=== PATIENT | female | born 1955 | race Caucasian/White ===

== ENCOUNTER 2019-04-22 19:34 | Inpatient (IN) | payer MEDICARE, MEDICAID ==
[~2019-04-22] VITALS: Ht 162 cm; Wt 196.0 kg
[~2019-04-22 19:34] MED LIST: AC500T; AC500T PO; ACET1TAB38 PO; ASP325T PO; ASP81TEC PO; ASPI-892; ATOR40TA70 PO; ATR20T PO; CA C1TAB78 PO; CAL PO; CLC500CT PO; CLPD75T PO; CPR500T PO; DCS100C; FENO135C PO; GLIP5TAB26 PO; GLUC-113 PO; GLUC-173 PO; GLUCOSAMINE PO; HCT25T PO; INSU100I14 SQ; INSU100I29 SQ; LEVO175T3 PO; LIRA0.6P SQ; LISI5TAB PO; LORA10TA2 PO; LORA10TA7 PO; LVT.15T PO; LVT.1T; MAG PO; MECL-124 PO; MTF500T PO; MTP50T PO; MULT-25; MULT1CAP27 PO; NITR100C3 PO; OMEP20CA12 PO; OMEP20TA2 PO; OMG1KC; OMG1KC PO; PARO10TA21 PO; PARO20TA4 PO; PEG250PW; POLY17PO23 PO; RANI150T66 PO; RNT150T PO; SIME80TA6; SITA100T12 PO; SPIR100T; SPIR100T28 PO; SULF1TAB35 PO; ZIN PO; [UNRECOGNIZED DRUG - OTHER]; [UNRECOGNIZED DRUG - OTHER] PO; [UNRECOGNIZED DRUG - REMARK] PO; tylenol; tylenol PO
[2019-04-22] MEDS ORDERED: NS IV 1000 ML 1,000 ML IV SCH (20:25)
[2019-04-22] MEDS ORDERED: diphenhydrAMINE 25 MG TAB (BENADRYL) PO PRN (20:30)
[2019-04-22] MEDS ORDERED: LACTULOSE SYRUP 10GM/15ML (ENULOSE) 30ML UDC PO PRN (20:30)
[2019-04-22] MEDS ORDERED: POLYETHYLENE GLYCOL 17 GM (MIRALAX) PACK PO PRN (20:30)
[2019-04-22] MEDS ORDERED: MILK OF MAGNESIA 400 MG/5 ML 30 ML UDC PO PRN (20:30)
[2019-04-22] MEDS ORDERED: CALCIUM CARBONATE 500 MG (TUMS) TAB.CHEW PO PRN ×2 (20:30)
[2019-04-22] MEDS ORDERED: LOPERAMIDE 2 MG (IMODIUM) TABLET PO PRN (20:30)
[2019-04-22] MEDS ORDERED: ANTACID SUSP 30 ML UDC (MYLANTA) PO PRN (20:30)
[2019-04-22] MEDS ORDERED: morphine INJ 10 MG/ML 1ML (SYR OR VIAL) IV PRN (20:30)
[2019-04-22] MEDS ORDERED: BISACODYL 10 MG SUPP (DULCOLAX) PR PRN (20:30)
[2019-04-22] MEDS ORDERED: ONDANSETRON 4 MG/2 ML (SDV) Z0FRAN IV PRN (20:30)
[2019-04-22] MEDS ORDERED: ONDANSETRON 4 MG (ZOFRAN) ORAL DISSOLVE TAB PO PRN (20:30)
[2019-04-22] MEDS ORDERED: diphenhydrAMINE 50 MG/ML INJ (BENADRYL) IVP PRN (20:30)
--- NOTE | 2019-04-22 20:35 | History & Physical-Hospitalist ---
History of Present Illness HPI/Chief Complaint CC: Respiratory distress HPI: This is a 64yoWF clinic patient of Dr Styles and Dr Garcia who has h/o CAD s/p 2 stents and morbid obesity who wears O2 at night who presented to the ICU at [facility] from [facility] due to cough and dyspnea for the past few days with low grade subjective fever. CXR was negative at [facility] and wbc was 12k so I was called and I requested further w/u and I assessed her to need specialty care of Pulmo and Cards so arrangements were made to move to [facility] for higher level of care. Influenza was negative and Lactic acid was normal but d-dimer was elevated at 645 and ABG revealed hypoxemia at 67 and hypercapnia at 56 with pH 7.39 and BNP negative. Lovenox 120mg SQ was given one dose in [facility] ER. Samantha Abraham and Robert were both notified. Source: patient, RN/MD, old records Exam Limitations: no limitations Date Seen 04/22/19 Time Seen by a Provider: 20:30 Attending Physician Janny Bliss DO PCP Jd Styles MD Referring Physician Date of Admission Home Medications & Allergies Home Medications Reviewed patient Home Medication Reconciliation performed by pharmacy medication reconciliations psychiatric technician and/or nursing. Patients Allergies have been reviewed. Allergies Allergies Coded Allergies No Known Drug Allergies (Verified Allergy, Unknown, 05/07/09) Past Dvbqdsh-Qiqhhb-Opcmks Hx Past Med/Social Hx: Reviewed Nursing Past Med/Soc Hx, Reviewed and Corrections made Patient Social History Marrital Status: Employed/Student: retired Alcohol Use: Denies Use Smoking Status: Former Smoker Former Smoker, Quit: Nov 28, 2007 Type Used: Cigarettes Recent Foreign Travel: No Contact w/other who traveled: No Immunizations Up To Date Date of Pneumonia Vaccine: Dec 03, 2014 Date of Influenza Vaccine: Nov 26, 2010 Past Medical History Surgeries: Coronary Stent Respiratory: COPD, Sleep Apnea Cardiac: Coronary Artery Disease, High Cholesterol, Hypertension Neurological: Neuropathy Reproductive: No Gastrointestinal: Gastroesophageal Reflux Musculoskeletal: Arthritis Endocrine: Diabetes, Insulin dep, Hypothyroidsim Review of Systems Constitutional: dizziness, malaise, weakness Respiratory: dyspnea on exertion, short of breath, wheezing Physical Exam Physical Exam Vital Signs Capillary Refill : Height, Weight, BMI Height: 5'5.00" Weight: 380lbs. 0.0oz. [id number]; 63.2 BMI Method: General Appearance: Anxious, Chronically ill, Mild Distress, Obese, Other (morbid obesity) Eyes: Right Eye Normal Inspection, Right Eye PERRL HEENT: PERRL/EOMI, Normal ENT Inspection, Pharynx Normal, Moist Mucous Membranes Neck: Full Range of Motion, Normal Inspection, Non Tender Respiratory: Chest Non Tender, Accessory Muscle Use, Crackles, Decreased Breath Sounds, Rales, Respiratory Distress, Wheezing Cardiovascular: No Edema, No Gallop, No JVD, No Murmur, Normal Peripheral Pulses, Tachycardia Gastrointestinal: Normal Bowel Sounds, No Organomegaly, No Pulsatile Mass, Non Tender, Soft Back: Normal Inspection, No CVA Tenderness, No Vertebral Tenderness Extremity: Normal Capillary Refill, Normal Inspection, Normal Range of Motion, Non Tender, No Calf Tenderness, No Pedal Edema Neurologic/Psychiatric: Alert, Oriented x3, No Motor/Sensory Deficits, Normal 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 Assessment/Plan Admission Diagnosis Assessment: Respiratory distress Elevated d-dimer with suspicion for PE placed on Lovenox therapeutic dose Hypoxemia Hypercapnia Obesity hypoventilation syndrome CAD stents x 2 Dr Garcia HTN HLP DM insulin dependent Hypothyroidism GERD Plan: biPAP CT angiogram if not too obese for the table Lovenox 120mg SQ Q12 hours ABG Panculture O2 Nebs Mat protocol SSI A Cardiology and Pulmonology appreciated Admission Status: Inpatient Order (span 2 midnights) Reason for Inpatient Admission: Resp failure Diagnosis/Problems Diagnosis/Problems (1) Respiratory insufficiency (2) Obesity hypoventilation syndrome (3) Elevated d-dimer (4) Hypoxemia (5) Hypercapnia (6) Obesities, morbid (7) GERD (gastroesophageal reflux disease) Clinical Quality Measures DVT/VTE Risk/Contraindication: Contraindications-Mechi: Other *list below* Other: possible DVT JANNY BLISS DO Apr 22, 2019 20:35
[2019-04-22 21:40] VITALS: BP 151/75
[2019-04-22 22:01] LABS: ABG BASE EXCESS 7.9 MMOL/L (-2.5-2.5); ABG OXYGEN SATURATION 95 % (94-100); ABG PCO2 47 MMHG (35-45); ABG PH 7.45 (7.37-7.43); ABG PO2 74 MMHG (79-93); ABG TCO2 33.8 MMOL/L (21.0-31.0)
[2019-04-22 22:02] LABS: ALLENS TEST YES-POS; INSPIRED O2 5L; PATIENT TEMP 36.3; VENTILATOR NO
[2019-04-22 22:12] LABS: BASOPHILS % (AUTO) 0 % (0-10); EOSINOPHILS # (AUTO) 0.2 10^3/uL (0.0-0.3); EOSINOPHILS % (AUTO) 2 % (0-10); HEMATOCRIT 41 % (35-52); HEMOGLOBIN 12.5 G/DL (11.5-16.0); LYMPHOCYTES # (AUTO) 1.7 X 10^3 (1.0-4.0); LYMPHOCYTES % (AUTO) 15 % (12-44); MEAN CORPUSCULAR HEMOGLOBIN 29 PG (25-34); MEAN CORPUSCULAR HGB CONC 30 G/DL (32-36); MEAN CORPUSCULAR VOLUME 97 FL (80-99); MEAN PLATELET VOLUME 9.8 FL (7.4-10.4); MONOCYTES # (AUTO) 0.9 X 10^3 (0.0-1.0); MONOCYTES % (AUTO) 8 % (0-12); NEUTROPHILS # (AUTO) 8.8 X 10^3 (1.8-7.8); NEUTROPHILS % (AUTO) 76 % (42-75); PLATELET COUNT 363 10^3/uL (130-400); RED CELL DISTRIBUTION WIDTH 16.9 % (10.0-14.5); WHITE BLOOD COUNT 11.6 10^3/uL (4.3-11.0)
[2019-04-22] MEDS: DOCUSATE SODIUM 100 MG (COLACE) CAP PO SCH (22:12)
[2019-04-22] MEDS: SENNOSIDES 8.6 MG (SENOKOT) TAB PO SCH (22:12)
[2019-04-22 22:32] LABS: ALANINE AMINOTRANSFERASE 29 U/L (0-55); ALBUMIN 3.7 GM/DL (3.2-4.5); ALKALINE PHOSPHATASE 63 U/L (40-136); BILIRUBIN,TOTAL 0.5 MG/DL (0.1-1.0); BUN/CREATININE RATIO 21; CALCIUM 9.8 MG/DL (8.5-10.1); CARBON DIOXIDE 28 MMOL/L (21-32); CHLORIDE 100 MMOL/L (98-107); CREATININE SERUM 1.14 MG/DL (0.60-1.30); GFR ESTIMATED 48; GLUCOSE 82 MG/DL (70-105); POTASSIUM 4.9 MMOL/L (3.6-5.0); SODIUM 140 MMOL/L (135-145); TOTAL PROTEIN 7.5 GM/DL (6.4-8.2)
[2019-04-22] MEDS ORDERED: cefTRIAXone 1,000 MG IV (ROCEPHIN) VIAL ONE (22:55)
[2019-04-22] MEDS ORDERED: WATER (STERILE) FOR INJECTION 10 ML ONE (22:55)
[2019-04-22 23:06] VITALS: BP 158/74
[2019-04-22] MEDS: ENOXAPARIN 60 MG/0.6 ML (LOVENOX) SYR SC SCH (23:08)
[2019-04-22] MEDS: inSUlin ASPART (NovoLOG) 1 UNIT/0.01 ML (CHARGE PER UNIT) SC SCH (23:08)
[2019-04-22 23:18] VITALS: BP 158/74
[2019-04-22] MEDS: cefTRIAXone FOR IV USE 1,000 MG in WATER (STERILE) FOR INJECTION 10 ML IV SCH (23:21)
[2019-04-22] MEDS: methylPREDNISolone 40 MG/ML (Solu-MEDROL) VIAL IV SCH (23:22)
[2019-04-22 23:30] VITALS: BP 133/58
[2019-04-22] MEDS ORDERED: RT-ALBUTEROL/IPRATROPIUM 3 ML (DUONEB) VIAL INH PRN (23:30)
[2019-04-22 23:35] LABS: BILIRUBIN,URINE NEGATIVE (NEGATIVE); CLARITY,URINE CLEAR; COLOR,URINE YELLOW; GLUCOSE, URINE (UA) NEGATIVE (NEGATIVE); KETONES,URINE NEGATIVE (NEGATIVE); LEUKOCYTE ESTERASE ,URINE TRACE (NEGATIVE); NITRITE,URINE NEGATIVE (NEGATIVE); PROTEIN,URINE NEGATIVE (NEGATIVE)
[2019-04-22 23:51] LABS: BACTERIA,URINE FEW /HPF; SQUAMOUS EPITHELIAL CELL,UR RARE /HPF; WBC,URINE 0-2 /HPF
[2019-04-23] VITALS (26 sets, daily range): BP systolic 102–174; BP diastolic 56–122
[2019-04-23] MEDS: RT-ALBUTEROL/IPRATROPIUM 3 ML (DUONEB) VIAL INH SCH ×6 (02:07→21:12)
[2019-04-23 04:44] LABS: BASOPHILS % (AUTO) 0 % (0-10); EOSINOPHILS % (AUTO) 0 % (0-10); HEMATOCRIT 41 % (35-52); LYMPHOCYTES # (AUTO) 0.7 X 10^3 (1.0-4.0); LYMPHOCYTES % (AUTO) 6 % (12-44); MEAN CORPUSCULAR HEMOGLOBIN 28 PG (25-34); MEAN CORPUSCULAR HGB CONC 29 G/DL (32-36); MEAN CORPUSCULAR VOLUME 97 FL (80-99); MEAN PLATELET VOLUME 9.7 FL (7.4-10.4); MONOCYTES # (AUTO) 0.2 X 10^3 (0.0-1.0); MONOCYTES % (AUTO) 2 % (0-12); NEUTROPHILS # (AUTO) 10.3 X 10^3 (1.8-7.8); NEUTROPHILS % (AUTO) 92 % (42-75); PLATELET COUNT 352 10^3/uL (130-400); RED CELL DISTRIBUTION WIDTH 16.8 % (10.0-14.5); WHITE BLOOD COUNT 11.2 10^3/uL (4.3-11.0)
[2019-04-23 04:53] LABS: ABG BASE EXCESS 6.6 MMOL/L (-2.5-2.5); ABG OXYGEN SATURATION 99 % (94-100); ABG PCO2 58 MMHG (35-45); ABG PH 7.36 (7.37-7.43); ABG PO2 132 MMHG (79-93); ABG TCO2 33.9 MMOL/L (21.0-31.0)
[2019-04-23 04:55] LABS: ALLENS TEST YES-POS; INSPIRED O2 50%; PATIENT TEMP 36.4; VENTILATOR NO
[2019-04-23] MEDS: ACETAMINOPHEN 325 MG TABLET PO PRN ×2 (05:01→12:00)
[2019-04-23 05:03] LABS: ALBUMIN 3.7 GM/DL (3.2-4.5); BILIRUBIN,TOTAL 0.4 MG/DL (0.1-1.0); CALCIUM 9.3 MG/DL (8.5-10.1); CREATININE SERUM 1.02 MG/DL (0.60-1.30); PHOSPHORUS 3.3 MG/DL (2.3-4.7); POTASSIUM 5.3 MMOL/L (3.6-5.0); TOTAL PROTEIN 7.2 GM/DL (6.4-8.2)
[2019-04-23] MEDS: KCL 20 MEQ TAB (K-DUR) PO SCH (05:04)
[2019-04-23] MEDS: MAGNESIUM 1 GM/100 ML IVPB 100 ML IV SCH (05:04)
[2019-04-23] MEDS: POTASSIUM CL 10MEQ/50ML IVPB 50 ML IV SCH (05:04)
[2019-04-23] MEDS: inSUlin ASPART (NovoLOG) 1 UNIT/0.01 ML (CHARGE PER UNIT) SC SCH ×4 (05:05→20:53)
--- NOTE | 2019-04-23 05:41 | Pulmonary Consultation ---
History of Present Illness History of Present Illness Date Seen by Provider: Apr 23, 2019 Time Seen by Provider: 05:36 Date of Admission History of Present Illness 64yo With hx of CAD, morbid obesity, oxygen dependent COPD, presented from [facility] [place] direct admit to ICU secondary to worsening SOB, subjective fevers, and cough over the last 3-4 days . PT was found to have sepsis and was admitted to ICU with abx and IVF. No prior episodes like this in past. I am consulted for pulmonary/ICU management. Allergies and Home Medications Allergies Coded Allergies: No Known Drug Allergies (Verified Allergy, Unknown, 05/07/09) Home Medications Acetaminophen 500 Mg Tablet, 1,000 MG PO DAILY PRN for PAIN, (Reported) TAKES 2 (500MG) TABLET Aspirin 81 Mg Tabec, 81 MG PO DAILY@1999, (Reported) Atorvastatin Calcium 40 Mg Tablet, 40 MG PO 1999, (Reported) Calcium Carbonate 500 Mg Tab.chew, 500-1,000 MG PO DAILY PRN for INDIGESTION, (Reported) TAKES 1-2 (500MG) CHEW TAB Clopidogrel 75 Mg Tablet, 75 MG PO DAILY, (Reported) Fenofibrate 135 Mg Capsule.dr, 135 MG PO DAILY, (Reported) Glipizide 5 Mg Tab.er.24, 10 MG PO DAILY W/BREAKFAST, (Reported) TAKE 2 (5MG) TABLETS Insulin Aspart 300 Units/3 Ml Solution, 18 UNITS SQ AC, (Reported) Insulin Detemir 100 Unit/1 Ml Insuln.pen, 16 UNITS SQ HS, (Reported) Levothyroxine Sodium 175 Mcg Tablet, 175 MCG PO DAILY, (Reported) Liraglutide 0.6 Mg/0.1 Ml Pen.injctr, 1.2 MG SQ HS, (Reported) Lisinopril 5 Mg Tablet, 5 MG PO DAILY@1800, (Reported) Metoprolol Tartrate 50 Mg Tab, 50 MG PO BID, (Reported) Multivitamins 1 Each Capsule, 1 TAB PO DAILY@1500, (Reported) Lyle 3 Polyunsat Fatty Acids 1,000 Mg Cap, 1,000 MG PO BID, (Reported) Paroxetine Hcl 20 Mg Tablet, 20 MG PO DAILY, (Reported) Polyethylene Glycol 17 Gm Pack, 17 GM PO DAILY PRN for CONSTIPATION, (Reported) Ranitidine Hcl 150 Mg Tablet, 150 MG PO BID, (Reported) Sitagliptin Phosphate 100 Mg Tablet, 100 MG PO DAILY, (Reported) [Markus/Mag/Zin] , 1 TAB PO DAILY@1500, (Reported) [Glucosamine] , 2,000 MG PO DAILY@1500, (Reported) Past Iubmbbw-Xqvgki-Djnkhp Hx Past Med/Social Hx: Reviewed Nursing Past Med/Soc Hx, Reviewed and Corrections made Patient Social History Alcohol Use: Denies Use Smoking Status: Former Smoker Type Used: Cigarettes Former Smoker, Quit: Nov 28, 2007 Recent Foreign Travel: No Contact w/Someone Who Travel: No Immunizations Up To Date Date of Pneumonia Vaccine: Jan 26, 2018 Date of Influenza Vaccine: Nov 26, 2010 Past Medical History Coronary Stent Sleep Apnea Coronary Artery Disease, High Cholesterol, Hypertension Neuropathy Reproductive Disorders: No Gastroesophageal Reflux Arthritis Diabetes, Insulin dep, Hypothyroidsim Review of Systems Time Seen by Provider: 07:14 Constitutional: Fever, Chills, Sweats, Weakness, Malaise, Other Eyes: No: Pain, Vision change, Conjunctivae inflammation, Eyelid inflammation, Other, Redness ENT: Nose congestion; No: Ear pain, Ear discharge, Nose pain, Nose discharge, Mouth pain, Mouth swelling, Throat pain, Throat swelling, Other Respiratory: Cough, Shortness of breath, SOB with excertion Sepsis Event Evaluation Height, Weight, BMI Height: 5'5.00" Weight: 380lbs. 0.0oz. [id number]; 77.57 BMI Method: Exam Exam Vital Signs Date Time Temp Pulse Resp B/P (MAP) Pulse Ox O2 Delivery O2 Flow Rate FiO2 04/23/19 05:00 67 161/76 (104) 94 NIV Bilevel 50.00 04/23/19 04:00 36.4 04/23/19 04:00 96 Vapotherm 16.00 40 04/23/19 04:00 66 164/77 (106) 98 NIV Bilevel 50.00 04/23/19 03:00 58 146/73 (97) 96 NIV Bilevel 50.00 04/23/19 02:08 74 17 94 50.00 04/23/19 02:00 52 23 146/70 (95) 93 NIV Bilevel 50.00 04/23/19 01:52 61 04/23/19 01:00 62 23 127/63 (84) 96 NIV Bilevel 50.00 04/23/19 00:55 NIV Bilevel 50.00 04/23/19 00:37 61 20 96 50.00 04/23/19 00:00 55 21 138/66 (90) 97 Vapotherm 16.00 40.00 04/23/19 00:00 96 Vapotherm 16.00 40 04/22/19 23:30 60 23 133/58 (83) 95 Vapotherm 16.00 40.00 04/22/19 23:18 36.3 60 99 45 04/22/19 23:06 60 20 158/74 (102) 99 Vapotherm 16.00 40.00 04/22/19 22:37 Nasal Cannula 6.00 04/22/19 22:27 61 04/22/19 22:03 Nasal Cannula 6.00 04/22/19 21:45 36.3 04/22/19 21:40 61 18 151/75 (100) 94 Nasal Cannula I & O 04/23/19 07:00 Intake Total 50 ml Output Total 1275 ml Balance -1225 ml Height & Weight Height: 5'5.00" Weight: 380lbs. 0.0oz. 172.851427jb; 77.57 BMI Method: General Appearance: Anxious, Chronically ill, Mild Distress, Obese, Other (morbid obesity) HEENT: PERRL/EOMI, Normal ENT Inspection, Pharynx Normal, Moist Mucous Membranes Neck: Full Range of Motion, Normal Inspection, Non Tender Respiratory: Chest Non Tender, Accessory Muscle Use, Crackles, Decreased Breath Sounds, Rales, Respiratory Distress, Wheezing Cardiovascular: No Edema, No Gallop, No JVD, No Murmur, Normal Peripheral Pulses, Tachycardia Capillary Refill: Less Than 3 Seconds Extremity: Normal Capillary Refill, Normal Inspection, Normal Range of Motion, Non Tender, No Calf Tenderness, No Pedal Edema Neurologic/Psychiatric: Alert, Oriented x3, No Motor/Sensory Deficits, 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 -Check Echo Morbid obesity with OHS -Pt will benefit from home vent to mask -C02 on chem is 53 Hyperkalemia -Give 80mg of lasix x 1 COPD -Duonebs -Solumedrol -Oxygen CAD -Cardiology following -Hx of stent placement IDDM RUBENS TRUJILLO DO Apr 23, 2019 05:41
[2019-04-23] MEDS ORDERED: FUROSEMIDE 40 MG/4 ML INJ (LASIX) IVP ONE (05:45)
[2019-04-23] MEDS: methylPREDNISolone 40 MG/ML (Solu-MEDROL) VIAL IV SCH ×3 (06:37→17:12)
[2019-04-23] MEDS ORDERED: FLU QUADRIvalent (5+ YOA) 2019-2020 (AFLURIA) 0.5 ML IM ONE (06:45)
[2019-04-23] MEDS ORDERED: hydrALAZINE (APESOLINE) 20 MG/ML VIAL IV PRN (07:30)
--- NOTE | 2019-04-23 07:46 | Diagnostic Imaging Report ---
INDICATION: Tachycardia. Comparison is made to prior examination of 04/22/19. FINDINGS: There is cardiomegaly. There is some venous congestion. There is no pleural effusion, pneumothorax or pneumonia. Mediastinum is unremarkable. IMPRESSION: Cardiomegaly and mild central pulmonary venous congestion. Dictated by: Dictated on workstation # [id number]
[2019-04-23] MEDS: NS IV 1000 ML 1,000 ML IV SCH ×2 (08:15→20:53)
[2019-04-23] MEDS: ENOXAPARIN 60 MG/0.6 ML (LOVENOX) SYR SC SCH (08:17)
[2019-04-23] MEDS: DOCUSATE SODIUM 100 MG (COLACE) CAP PO SCH ×2 (08:18→20:53)
[2019-04-23] MEDS: SENNOSIDES 8.6 MG (SENOKOT) TAB PO SCH ×2 (08:18→20:53)
--- NOTE | 2019-04-23 08:29 | Diagnostic Imaging Report ---
INDICATION: Dyspnea. Comparison made with prior examination 12/03/2015. FINDINGS: There is cardiomegaly. There is some venous congestion. There is no pleural effusion or pneumothorax. Mediastinum is unremarkable. IMPRESSION: Cardiomegaly and mild central pulmonary venous congestion. Dictated by: Dictated on workstation # [id number]
[2019-04-23] MEDS ORDERED: ENOXAPARIN 300 MG/3 ML (LOVENOX) MULTI-DOSE VIAL SQ SCH ×2 (08:30→20:00)
--- NOTE | 2019-04-23 08:49 | Consultation-Cardiology ---
HPI-Cardiology Cardiology Consultation Date of Consultation 04/23/19 Date of Admission Time Seen by Provider: 08:16 Indication: Shortness of breath HPI This is a 64 y/o F w/ PMH of HTN, insulin dependent DMII, hyperlipidemia, CAD w/ 2 stents, morbid obesity, and O2 dependent COPD who presented from [facility] for direct admit to [facility] ICU for worsening SOB x1 Month, and subjective low grade fever and cough for the past few days. She states in the past few weeks she has had trouble breathing when lying flat. Denies chest pain, palpitations, dizziness, tenderness to LE, increased swelling to extremities or any other sx at this time. Her labs showed hypercapnia, elevated BPN, D-dimer, and leukocytosis. Home Medications & Allergies Allergies: Coded Allergies: canagliflozin (Verified Allergy, Unknown, 04/23/19) Home Medication List Reviewed: Yes PLM-Ivsywh-Ibqiwt Hx Patient Social History Marital Status: Employed/Student: retired Alcohol Use: Denies Use Smoking Status: Former Smoker Former smoker/When Quit: August 08, 2007 Type Used: Cigarettes Recent Foreign Travel: No Immunizations Up To Date Date of Pneumonia Vaccine: Jan 26, 2018 Date of Influenza Vaccine: Nov 26, 2010 Past Medical History Discussed below Family Medical History Family Medical Hx Noncontributory Review of Systems-General Review of Systems Constitutional: No chills; fever, weakness EENTM: see HPI, no symptoms reported Respiratory: see HPI, cough, dyspnea on exertion, orthopnea, short of breath Cardiovascular: see HPI; No chest pain; edema, Hx of Intervention; No palpitations Gastrointestinal: no symptoms reported, see HPI; No abdominal pain, No constipation, No diarrhea Genitourinary: no symptoms reported, see HPI; No decreased output, No discharge, No dysuria Musculoskeletal: see HPI, back pain, joint pain Skin: see HPI Psychiatric/Neurological: See HPI Reviewed Test Results Reviewed Test Results Lab Laboratory Tests 04/22/19 22:02 04/23/19 04:25 Physical Exam Physical Exam Vital Signs Vital Signs - First Documented 04/22/19 04/22/19 04/22/19 04/22/19 21:40 21:45 22:03 23:18 Temp 36.3 Pulse 61 Resp 18 B/P (MAP) 151/75 (100) Pulse Ox 94 O2 Delivery Nasal Cannula O2 Flow Rate 6.00 FiO2 45 Capillary Refill : Less Than 3 Seconds Height, Weight, BMI Height: 5'5.00" Weight: 380lbs. 0.0oz. 172.948988op; 77.57 BMI Method: General Appearance: No Apparent Distress, Chronically ill, Other (morbid obesity) Eyes: Bilateral Eye Normal Inspection, Bilateral Eye PERRL, Bilateral Eye EOMI HEENT: PERRL/EOMI, Normal ENT Inspection, Pharynx Normal, Moist Mucous Membranes Neck: Full Range of Motion, Normal Inspection, Non Tender Respiratory: Chest Non Tender, Crackles, Decreased Breath Sounds Cardiovascular: Regular Rate, Rhythm, No Gallop, No JVD, Normal Peripheral Pulses Gastrointestinal: Normal Bowel Sounds, No Organomegaly, No Pulsatile Mass, Non Tender, Soft Back: Normal Inspection, No CVA Tenderness, No Vertebral Tenderness Extremity: Non Tender, No Calf Tenderness, Pedal Edema, Other (1+ bilateral pedal edema; scaly, yellow rash to bilateral feet) Neurologic/Psychiatric: Alert, Oriented x3, No Motor/Sensory Deficits, Normal Mood/Affect Skin: Normal Color, Warm/Dry Lymphatic: No Adenopathy A/P-Cardiology Assessment/Plan Acute respiratory failure, improving, on Vapotherm Elevated BNP, echocardiogram showed normal LV size and function with ejection fraction 50-55 percent. Pulmonary hypertension with PA pressure 45-50 mmHg. -Hypercapnia, hypoxemia -On Noninvasive ventilation -On O2 NC Elevated D-dimer -R/O PE -Receiving Lovenox inj -Bilateral LE Doppler ordered -Unable to CT scan pt 2/2 body habitus -Continue to monitor, Managed by Primary Care team and Dr. Abraham COPD & OHS -Receiving Duonebs, Solumedrol, and Vapotherm Hyperkalemia, started on Lasix -Continue to monitor, Managed by Primary Care team and Dr. Abraham CAD w/ 2 stents -Cardiac Cath in 2016 showed Mild to moderate CAD, nonobstructive, disease with patent stents in the right coronary artery & Mildly elevated LVEDP -Echo in 2016 showed ~EF 50% and Pulmonary Arterial Pressure of 30 mm Hg, Awaiting updated Echo results HTN, poorly controlled, currently on Solu-Medrol, restarted Lopressor and lisinopril, continue to monitor Insulin Dependent DMII -Managed by Primary Care team Hyperlipidemia Hypothyroidism GERD Poor hygiene Clinical Quality Measures DVT/VTE Risk/Contraindication: Risk Factor Score Per Nursin RFS Level Per Nursing on Admit: 4+=Very High Contraindications-Mechi: Other *list below* Other: possible DVT Supervisory-Addendum Brief Verification & Attestation Participated in pt care: history, MDM, physical Personally performed: exam, history, MDM, supervision of care Care discussed with: Medical Student Procedures: n/a Results interpretation: Verified all documentation Verification and Attestation of Medical Student E/M Service A medical student performed and documented this service in my presence. I reviewed and verified all information documented by the medical student and made modifications to such information, when appropriate. I personally performed the physical exam and medical decision making. I made few modifications to the note using Italic font Belle Garcia, Apr 23, 2019,10:03 [facility] Apr 23, 2019 08:49 BELLE GARCIA MD Apr 23, 2019 10:05
--- NOTE | 2019-04-23 08:52 | Progress Note - Hospitalist ---
QUYNH COSTA,MED STUDENT 04/23/19 0852: Subjective HPI/CC On Admission Date Seen by Provider: Apr 23, 2019 Time Seen by Provider: 08:14 CC: Respiratory distress HPI: This is a 64yoWF clinic patient of Dr Styles and Dr Garcia who has h/o CAD s/p 2 stents and morbid obesity who wears O2 at night who presented to the ICU at [facility] from [facility] due to cough and dyspnea for the past few days with low grade subjective fever. CXR was negative at [facility] and wbc was 12k so I was called and I requested further w/u and I assessed her to need specialty care of Pulmo and Cards so arrangements were made to move to [facility] for higher level of care. Influenza was negative and Lactic acid was normal but d-dimer was elevated at 6 45 and ABG revealed hypoxemia at 67 and hypercapnia at 56 with pH 7.39 and BNP negative. Lovenox 120mg SQ was given one dose in [facility] ER. Samantha Abraham and Robert were both notified. Subjective/Events-last exam Pt states SOB and cough have improved on vapotherm Cough still non-productive Complains of chronic pain in her leg she states is related to how she sits. pain is stable Struggles to sit forward for resp. exam Out of breath during entirety of interview Wears oxygen at home at night, has never had CPAP before Focused Exam Lactate Level 04/22/19 22:02: Lactic Acid Level 0.84 Objective Exam Vital Signs Vital Signs Date Time Temp Pulse Resp B/P (MAP) Pulse Ox O2 Delivery O2 Flow Rate FiO2 04/23/19 10:22 92 Vapotherm 20.00 50 04/23/19 09:00 67 157/90 (112) 04/23/19 08:00 36.8 04/23/19 02:08 17 Capillary Refill : Less Than 3 Seconds General Appearance: No Apparent Distress, Chronically ill, Obese HEENT: Pharynx Normal, Moist Mucous Membranes Neck: Non Tender, Supple, Other (hursutism on chin ) Respiratory: Chest Non Tender, No Respiratory Distress, Accessory Muscle Use, Crackles, Decreased Breath Sounds Cardiovascular: Regular Rate, Rhythm, No Gallop, No Murmur, Normal Peripheral Pulses Back: No CVA Tenderness, No Vertebral Tenderness, Other (buffalo hump, probably related to body habitus ) Extremity: No Calf Tenderness, Inflammation, Pedal Edema (+3 pitting on the right, +4 pitting on the right ), Swelling (L medial malleolus ), Other (scaling over feet b/l ) Neurologic/Psychiatric: Alert, Oriented x3 Skin: Normal Color, Warm/Dry Results/Procedures Lab Laboratory Tests 04/22/19 22:02 04/23/19 04:25 Patient resulted labs reviewed. Assessment/Plan Assessment and Plan Assess & Plan/Chief Complaint Assessment Respiratory insufficiency Respiratory acidosis Pulmonary hypertension Hyperkalemia Elevated BNP Morbid obesity Plan Consulted pulm, cardio Pt cannot fit into CT. Tx empirically with lovenox. Will eval with b/l dopplers Continue breathing treatments, nuonebs, solumedrol Pt will require CPAP machine at home Cardio following echo Clinical Quality Measures DVT/VTE Risk/Contraindication: Risk Factor Score Per Nursin RFS Level Per Nursing on Admit: 4+=Very High Contraindications-Mechi: Other *list below* Other: possible DVT JANNY BLISS DO 04/23/192053: Subjective Subjective/Events-last exam Pt still on Vapotherm O2 sat 90%. Venous doppler will be obtained on the lower extremities since D-dimer is 1.56, Pt maintained on Lovenox therapeutic dose first given at the [facility] ER before transfer. Pt and OT will be ordered and Pt may need rehab. Review of Systems Pulmonary: Dyspnea, Cough Objective Exam General Appearance: Anxious, Chronically ill, Mild Distress, Obese Respiratory: Accessory Muscle Use, Crackles, Decreased Breath Sounds, Wheezing Assessment/Plan Assessment and Plan Assess & Plan/Chief Complaint Assessment: Respiratory distress Elevated d-dimer with suspicion for PE placed on Lovenox therapeutic dose Hypoxemia Hypercapnia Obesity hypoventilation syndrome CAD stents x 2 Dr Garcia HTN HLP DM insulin dependent Hypothyroidism GERD Plan: biPAP CT angiogram but too obese for table Lovenox 120mg SQ Q12 hours ABG Panculture O2 Nebs Mat protocol SSI A Cardiology and Pulmonology appreciated Diagnosis/Problems Diagnosis/Problems (1) Respiratory insufficiency (2) Hypoxemia (3) Hypercapnia (4) GERD (gastroesophageal reflux disease) (5) Obesities, morbid (6) Obesity hypoventilation syndrome (7) Elevated d-dimer Supervisory-Addendum Brief Verification & Attestation Participated in pt care: history, MDM, physical Personally performed: exam, history, MDM, supervision of care Care discussed with: Medical Student Procedures: n/a Results interpretation: Verified all documentation Verification and Attestation of Medical Student E/M Service A medical student performed and documented this service in my presence. I reviewed and verified all information documented by the medical student and made modifications to such information, when appropriate. I personally performed the physical exam and medical decision making. Janny Bliss, Apr 23, 2019,20:54 QUYNH COSTA,MED STUDENT Apr 23, 2019 08:52 JANNY BLISS DO Apr 23, 2019 20:54
[2019-04-23] MEDS ORDERED: PANTOPRAZOLE 40 MG (PROTONIX) VIAL IV SCH (09:00)
[2019-04-23] MEDS ORDERED: lisINopril 5 MG (PRINIVIL) TABLET PO SCH (10:00)
--- NOTE | 2019-04-23 10:00 | Physical Therapy Evaluation ---
PT Evaluation-General Medical Diagnosis Admission Date Apr 22, 2019 at 20:34 Medical Diagnosis: Respiratory Insuffiencry Onset Date: Apr 22, 2019 Therapy Diagnosis Therapy Diagnosis: Debility Height/Weight Height (Feet): 5 Height (Inches): 5.00 Weight (Pounds): 380 Weight (Ounces): 0.0 Precautions Precautions/Isolations: Fall Prevention, Standard Precautions Referral Physician: Amita Reason for Referral: Evaluation/Treatment Medical History Pertinent Medical History: Arthritis, CAD, COPD, DM, GERD, HTN, Hypothroidism, Neuropathy Additional Medical History High cholesterol, sleep apnea. Current History [place] [facility] [place]ed History: Yes Social History Home: Apartment Current Living Status: Spouse Entry Into Home: Level Entry PT Steps Into Home: 0 PT Steps Inside Home: 0 Prior Prior Level of Function SCALE: Activities may be completed with or without assistive devices. 7-Ujkaredqyx-ckmkzxe completes the activity by him/herself with no assistance from a helper. 5-Set-up or Clean-up Assistance-helper sets up or cleans up; patient completes activity. [place] assists only prior to or following the activity. 4-Supervision or Touching Assistance-helper provides verbal cues and/or touching/steadying and/or contact guard assistance as patient completes activity. Assistance may be provided throughout the activity or intermittently. 3-Partial/Moderate Assistance-helper does LESS THAN HALF the effort. [place] lifts, holds or supports trunk or limbs, but provides less than half the effort. 2-Substantial/Maximal Assistance-helper does MORE THAN HALF the effort. [place] lifts or holds trunk or limbs and provides more than half the effort. 2-Vhquqflux-zcuacw does ALL the effort. Patient does none of the effort to complete the activity. Or, the assistance of 2 or more helpers is required for the patient to complete the activity. If activity was not attempted, code reason: 7-Patient Refused. 9-Not Applicable-not attempted and the patient did not perform the activity before the current illness, exacerbation or injury. 10-Not Attempted due to Environmental Limitations-(lack of equipment, weather restraints, etc.). 88-Not Attempted due to Medical Conditions or Safety Concerns. Bed Mobility: 6 Transfers (B,C,W/C): 6 Gait: 6 Indoor Mobility (Ambulation): Independent PT Evaluation-Current Subjective Patient agreeable to therapy and states she is ready to get out of the bed. Objective Patient Orientation: Person, Place, Time, Situation Attachments: Oxygen (vapotherm), Mack Catheter, IV ROM/Strength ROM Lower Extremities BLE limited due to obesity Strength Lower Extremities BLE limited, LLE weaker than RLE. Integumentary/Posture Integumentary See nursing notes. Bladder Incontinence: Mack Cath Neuromuscular (Tone, Coordination, Reflexes) Grossly intact. Sensory Vision: Functional Hearing: Functional Sensation Right Lower Extremit: Intact Sensation Left Lower Extremity: Intact Transfers Roll Left to Right (QC): 3 Lying to Sitting/Side of Bed(Q: 2 Sit to Stand (QC): 2 Chair/Jsj-xy-Oojvd Xfer(QC): 2 Gait Does the Patient Walk?: No and Walking Goal IS indicated Gait Assistive Device: FWW Wheelchair Training Does the Pt Use a Wheelchair?: No Balance Sitting Static: Good Sitting Dynamic: Good Standing Static: Fair Standing Dynamic: Fair Assessment/Needs Patient states that she was previously able to move around in bed by herself but at this time she needed assistance moving her LLE and getting her shoulder up off the bed. Patient required elevated surface for sit to stand. Patient requires skilled therapy to aide in getting patient to her maximum LOF. Rehab Potential: Fair Post Rehab Potential-Barriers: Morbid obesity PT Stockroom Keeper Goals Fpc Goals PT Fpc Goals Time Frame: Apr 30, 2019 Roll Left & Right (QC): 6 Sit to Lying (QC): 3 Lying-Sitting on Side/Bed(QC): 3 Sit to Stand (QC): 6 Chair/Nqc-cj-Drulr Xfer(QC): 6 Does the Patient Walk: Yes Walk 10 feet (QC): 6 Walk 50ft with 2 Turns (QC): 6 PT Plan Problem List Problem List: Activity Tolerance, Functional Strength, Safety, Balance, Gait, Transfer, Bed Mobility, ROM Treatment/Plan Treatment Plan: Continue Plan of Care Treatment Plan: Bed Mobility, Education, Functional Activity Ron, Functional Strength, Gait, Safety, Therapeutic Exercise, Transfers Treatment Duration: Apr 30, 2019 Frequency: 6 times per week Estimated Hrs Per Day: .25 hour per day Patient and/or Family Agrees t: Yes Safety Risks/Education Patient Education: Transfer Techniques Teaching Recipient: Patient Teaching Methods: Discussion Response to Teaching: Reinforcement Needed Time/GCodes Time In: 917 Time Out: 934 Total Billed Treatment Time: 17 Total Billed Treatment 1 visit EVM (17 minutes) SIL HENRIQUEZ PT Apr 23, 2019 10:00
[2019-04-23] MEDS ORDERED: POLY17PO6 PO (10:04)
[2019-04-23] MEDS ORDERED: ATOR40TA70 PO (10:04)
[2019-04-23] MEDS ORDERED: MULT1TAB69 PO (10:04)
[2019-04-23] MEDS ORDERED: OMG1KC PO (10:04)
[2019-04-23] MEDS ORDERED: CALC-233 PO (10:04)
[2019-04-23] MEDS ORDERED: CLOP75TA28 PO (10:04)
[2019-04-23] MEDS ORDERED: FENO160T12 PO (10:04)
[2019-04-23] MEDS ORDERED: LIRA0.6P3 SC (10:04)
[2019-04-23] MEDS ORDERED: GLUC100016 PO (10:04)
[2019-04-23] MEDS ORDERED: ASPI-983 PO (10:04)
[2019-04-23] MEDS ORDERED: ACET-168 PO (10:04)
[2019-04-23] MEDS ORDERED: OMEP-280 PO (10:04)
[2019-04-23] MEDS ORDERED: LEVO175T5 PO (10:04)
[2019-04-23] MEDS ORDERED: CALC-927 PO (10:04)
[2019-04-23] MEDS ORDERED: LISI-556 PO (10:04)
[2019-04-23] MEDS ORDERED: METO-333 PO (10:04)
[2019-04-23] MEDS ORDERED: GLIP5TAB26 PO (10:04)
[2019-04-23] MEDS ORDERED: OXYM-51 NS (10:17)
[2019-04-23] MEDS ORDERED: MENT2.7L MM (10:17)
[2019-04-23] MEDS ORDERED: GUAI100L36 PO (10:17)
--- NOTE | 2019-04-23 10:23 | NUR ---
WENT OVER THE EXT MED HX WITH THE PATIENT AND SHE VERIFIED HOW SHE TAKES THEM. SHE ALSO VERIFIED HER OTC MEDS. OTC MEDS: TYLENOL PRN ASPIRIN 81MG HS DAYAN/MAG/ZINC 1600 TUMS PRN GLUCOSAMINE 1600 TUSSIN PRN COUGH DROPS FISH OIL BID MTV 1600 NASAL DECONGESTANT SPRAY BID PRN MIRALAX PRN
--- NOTE | 2019-04-23 11:48 | NUR ---
CM/SS visited with the patient for social service consult need. DME: The patient is already established with [facility] May[facility]. She currently gets her oxygen that she wears only at night and a Walker. The patient states that her and her live at the [facility] and feels that it is a good place to live. She was just recently diagnosed with COPD and believes that she will be needing a CPAP and breathing treatment upon discharging. The patient did discuss with the CM/SS that she could benefit from a toilet seat riser and wheelchair so she can have easier transport to her dr. appointments. She states that her helps her with most of her ADL's due to being so overweight. CM/SS will wait on orders for Nebulizer. CM/SS unsure if a sleep study will be done for a CPAP machine. Will call on wheelchair and seat riser. No other needs at this time. Will continue to follow.
--- NOTE | 2019-04-23 11:50 | Occupational Therapy Eval ---
OT Evaluation-General/PLF Medical Diagnosis Admission Date Apr 22, 2019 at 20:34 Medical Diagnosis: Respiratory Insuffiencry Onset Date: Apr 22, 2019 Therapy Diagnosis Therapy Diagnosis: Weakness Height/Weight Height (Feet): 5 Height (Inches): 5.00 Weight (Pounds): 380 Weight (Ounces): 0.0 Precautions Precautions/Isolations: Fall Prevention, Standard Precautions Safety Interventions: None Weight Bear Status Weight Bearing Restriction: Weight Bearing/Tolerated Referral Physician: Amita Referral Reason: Activity Tolerance, Self Care, Evaluation/Treatment, Strengthening/ROM Medical History Pertinent Medical History: Arthritis, CAD, COPD, DM, GERD, HTN, Hypothroidism, Neuropathy Additional Medical History 2 stents Reviewed History: Yes Social History Home: Apartment Current Living Status: Spouse Entry Into Home: Level Entry Steps Into Home: 0 Steps Inside Home: 0 ADL-Prior Level of Function SCALE: Activities may be completed with or without assistive devices. 7-Sioxlpikgd-fpqoceg completes the activity by him/herself with no assistance from a helper. 5-Set-up or Clean-up Assistance-helper sets up or cleans up; patient completes activity. [place] assists only prior to or following the activity. 4-Supervision or Touching Assistance-helper provides verbal cues and/or touching/steadying and/or contact guard assistance as patient completes activity. Assistance may be provided throughout the activity or intermittently. 3-Partial/Moderate Assistance-helper does LESS THAN HALF the effort. [place] lifts, holds or supports trunk or limbs, but provides less than half the effort. 2-Substantial/Maximal Assistance-helper does MORE THAN HALF the effort. [place] lifts or holds trunk or limbs and provides more than half the effort. 8-Vpfdfnuwd-iclthv does ALL the effort. Patient does none of the effort to co mplete the activity. Or, the assistance of 2 or more helpers is required for the patient to complete the activity. If activity was not attempted, code reason: 7-Patient Refused. 9-Not Applicable-not attempted and the patient did not perform the activity before the current illness, exacerbation or injury. 10-Not Attempted due to Environmental Limitations-(lack of equipment, weather restraints, etc.). 88-Not Attempted due to Medical Conditions or Safety Concerns. ADL PLOF Comments Pt. reports that her spouse assists her with ADLs. She states that she has a tub/shower. She steps in and stands while he washes her. Pt. reports that he also assists her with drying and then dressing. Pt. states that she is unable to cleanse self after toileting because she "can't reach." Spouse assists her with this as well and has for some time. She wears oxygen at night and will be going to a Cpap according to her. She uses a walker at home. Pt. reports that she needs some sort of toilet riser for her toilet, as it is too low at home. Self Care: Needed Some Help Functional Cognition: Independent DME/Equipment: Grab Bars, Shower Hose School Transportation Director, Tub/Shower DME/Equipment Comments Pt. has a walker. OT Current Status Subjective No pain reported. Appearance Pt. in bed. Alert and oriented. Agrees to get up to chair. Mental Status/Objective Patient Orientation: Person, Place, Time, Situation Attachments: Mack Catheter, IV, Oxygen, Telemetry ADL-Treatment Eating (QC): 5 (Set up for drinking with clear liquids. ) On/Off Footwear (QC): 1 (Assist for slipper socks. Did not don these before.) Other Treatments Pt. agrees to work with therapy. Completed co-treatment with PT due to need of two skilled clinicians. OT facilitated ADL skills while PT facilitated transfer. Pt. required max assist overall for supine-sit. Pt. sat for awhile to breath. Stood with max assist, and with assist for lines, tubes, cords. Transferred to chair in room. All needs met. Education OT Patient Education: Correct positioning, Modified ADL techniques, Progress toward Goal/Update tx plan, Purpose of tx/functional activities, Reviewed precautions, Rehab process, Transfer techniques Teaching Recipient: Patient Teaching Methods: Demonstration, Discussion Response to Teaching: Verbalize Understanding, Return Demonstration OT Short Term Goals Short Term Goals Time Frame: Apr 30, 2019 Eatin Oral hygiene: 5 Toileting hygiene: 3 (Mod assist with AE) Putting on/taking off footwear: 3 (Mod assist with AE) OT Group Home Goals [employer] Goals Time Frame: May 07, 2019 Eating (QC): 6 Oral Hygiene (QC): 6 Toileting Hygiene (QC): 4 (SBA with AE) On/Off Footwear (QC): 4 (SBA with AE) Additional Goals: 1-Demonstrate ADL Tasks, 2-Verbalize Understanding, 3-ImproveStrength/Ron 1=Demonstrate adherence to instructed precautions during ADL tasks. 2=Patient will verbalize/demonstrate understanding of assistive devices/modifications for ADL. 3=Patient will improve strength/tolerance for activity to enable patient to perform ADL's. Goals not written for bathing/LE dressing, as spouse assists at home. OT Education/Plan Problem List/Assessment Assessment: Decreased Activ Tolerance, Dependent Transfers, Impaired Bed Mobility, Impaired Funct Balance, Impaired I ADL's, Impaired Self-Care Skills Discharge Recommendations Plan/Recommendations: Continue POC Therapy Discharge Recommendati: Scheduled Assistance, Bath Aide, Home & Family Equpiment Recommendations-D/C: Toilet Riser with Rails, Hip Kit Treatment Plan/Plan of Care Treatment,Training & Education: Yes Patient would benefit from OT for education, treatment and training to promote independence in ADL's, mobility, safety and/or upper extremity function for ADL's. Plan of Care: ADL Retraining, Functional Mobility, UE Funct Exercise/Act Treatment Duration: May 07, 2019 Frequency: 5 times per week Estimated Hrs Per Day: .5 hour per day Agreement: Yes Rehab Potential: Fair Time/GCodes Start Time: 09:15 Stop Time: 09:35 Total Time Billed (hr/min): 20 Billed Treatment Time 1, LE HERNANDEZ OT Apr 23, 2019 11:50
--- NOTE | 2019-04-23 12:10 | Diagnostic Imaging Report ---
PROCEDURE: US Venous Lower Ext Jose De Jesus. TECHNIQUE: Multiple real-time grayscale images were obtained over the lower extremities in various projections, bilaterally. Additional duplex Doppler and color Doppler images were also obtained. INDICATION: Shortness of air. FINDINGS: Study is limited due to patient body habitus. No definite right or left lower extremity DVT is identified. Lower extremity deep venous systems show normal compressibility with normal response to augmentation and Valsalva. No fluid collection is seen. IMPRESSION: No evidence of right or left lower extremity DVT. Dictated by: Dictated on workstation # [id number]
[2019-04-23] MEDS: FUROSEMIDE 40 MG/4 ML INJ (LASIX) IVP SCH (15:58)
[2019-04-23] MEDS: cefTRIAXone FOR IV USE 1,000 MG in WATER (STERILE) FOR INJECTION 10 ML IV SCH (20:54)
[2019-04-23] MEDS: ALPRAZolam 0.25 MG (XANAX) TAB PO PRN (20:57)
[2019-04-23] MEDS ORDERED: POLYETHYLENE GLYCOL 17 GM (MIRALAX) PACK PO PRN (21:00)
[2019-04-23] MEDS ORDERED: ACETAMINOPHEN 500 MG TAB (TYLENOL) PO PRN (21:00)
[2019-04-23] MEDS ORDERED: meTOprolol TARTRATE 25 MG (LOPRESSOR) TABLET PO SCH (21:00)
[2019-04-23] MEDS ORDERED: INSULIN DETEMIR 16 UNIT SQ SCH (21:00)
[2019-04-23] MEDS ORDERED: OMEPRAZOLE 20 MG (PriLOSEC) CAP NON-FORMULARY PO SCH (21:00)
[2019-04-23] MEDS ORDERED: CALCIUM CARBONATE 500 MG (TUMS) TAB.CHEW PO PRN (21:00)
[2019-04-23] MEDS: meTOprolol TARTRATE 25 MG (LOPRESSOR) TABLET PO SCH (21:25)
[2019-04-23] MEDS ORDERED: ASPIRIN 81 MG CHEW (CHILDREN'S ASA) ONE (21:32)
[2019-04-23] MEDS: ASPIRIN E.C. 81 MG (ECOTRIN) TAB PO SCH (21:51)
[2019-04-24] VITALS (24 sets, daily range): BP systolic 98–172; BP diastolic 56–98
[2019-04-24] MEDS: methylPREDNISolone 40 MG/ML (Solu-MEDROL) VIAL IV SCH ×4 (00:02→17:46)
[2019-04-24] MEDS: RT-ALBUTEROL/IPRATROPIUM 3 ML (DUONEB) VIAL INH SCH ×6 (01:57→21:18)
[2019-04-24 04:21] LABS: BASOPHILS % (AUTO) 0 % (0-10); EOSINOPHILS % (AUTO) 0 % (0-10); HEMATOCRIT 39 % (35-52); HEMOGLOBIN 11.8 G/DL (11.5-16.0); LYMPHOCYTES # (AUTO) 0.6 X 10^3 (1.0-4.0); LYMPHOCYTES % (AUTO) 5 % (12-44); MEAN CORPUSCULAR HEMOGLOBIN 29 PG (25-34); MEAN CORPUSCULAR HGB CONC 31 G/DL (32-36); MEAN CORPUSCULAR VOLUME 97 FL (80-99); MEAN PLATELET VOLUME 9.9 FL (7.4-10.4); MONOCYTES # (AUTO) 0.7 X 10^3 (0.0-1.0); MONOCYTES % (AUTO) 5 % (0-12); NEUTROPHILS # (AUTO) 11.5 X 10^3 (1.8-7.8); NEUTROPHILS % (AUTO) 90 % (42-75); PLATELET COUNT 342 10^3/uL (130-400); RED CELL DISTRIBUTION WIDTH 16.7 % (10.0-14.5); WHITE BLOOD COUNT 12.7 10^3/uL (4.3-11.0)
[2019-04-24 04:30] LABS: ABG BASE EXCESS 10.3 MMOL/L (-2.5-2.5); ABG OXYGEN SATURATION 99 % (94-100); ABG PCO2 57 MMHG (35-45); ABG PO2 108 MMHG (79-93); ABG TCO2 37.2 MMOL/L (21.0-31.0)
[2019-04-24 04:33] LABS: ALLENS TEST YES-POS; INSPIRED O2 50%; PATIENT TEMP 36.6; VENTILATOR NO
[2019-04-24 04:47] LABS: CALCIUM 9.3 MG/DL (8.5-10.1); CREATININE SERUM 1.18 MG/DL (0.60-1.30); MAGNESIUM 1.9 MG/DL (1.6-2.4); PHOSPHORUS 3.1 MG/DL (2.3-4.7); POTASSIUM 4.5 MMOL/L (3.6-5.0)
[2019-04-24] MEDS: POTASSIUM CL 10MEQ/50ML IVPB 50 ML IV SCH (04:50)
[2019-04-24] MEDS: KCL 20 MEQ TAB (K-DUR) PO SCH (04:50)
[2019-04-24] MEDS: MAGNESIUM 1 GM/100 ML IVPB 100 ML IV SCH (04:50)
--- NOTE | 2019-04-24 05:09 | Pulmonary Progress Note ---
Subjective Time Seen by a Provider: 05:11 Subjective/Events-last exam Pt is currently BiPAP Sepsis Event Evaluation Height, Weight, BMI Height: 5'5.00" Weight: 380lbs. 0.0oz. [id number]; 77.57 BMI Method: Focused Exam Lactate Level 04/22/19 22:02: Lactic Acid Level 0.84 Exam Exam Vital Signs Date Time Temp Pulse Resp B/P (MAP) Pulse Ox O2 Delivery O2 Flow Rate FiO2 04/24/19 04:15 NIV Bilevel 50 04/24/19 04:00 36.6 04/24/19 03:00 73 16 145/65 (91) 96 NIV Bilevel 50.00 04/24/19 02:00 57 18 133/56 (81) 93 NIV Bilevel 50.00 04/24/19 01:57 63 18 94 50.00 04/24/19 01:00 61 04/24/19 01:00 61 19 131/58 (82) 94 NIV Bilevel 50.00 04/24/19 00:25 NIV Bilevel 50 04/24/19 00:25 36.8 04/24/19 00:00 71 18 127/62 (83) 95 NIV Bilevel 50.00 04/23/19 23:12 80 22 96 50.00 04/23/19 23:00 81 28 124/61 (82) 93 Vapotherm 20.00 50.00 04/23/19 22:00 75 21 134/62 (86) 91 Vapotherm 20.00 50.00 04/23/19 21:13 94 Vapotherm 20.00 50 04/23/19 21:00 73 141/59 (86) Vapotherm 20.00 50.00 04/23/19 20:00 Vapotherm 20.00 50 04/23/19 20:00 75 132/56 (81) 91 Vapotherm 20.00 50.00 04/23/19 19:27 37.0 04/23/19 19:00 73 04/23/19 19:00 73 138/67 (90) Vapotherm 20.00 50.00 04/23/19 18:13 92 Vapotherm 20.00 50 04/23/19 18:00 79 125/80 (95) 91 Vapotherm 20.00 50.00 04/23/19 17:33 36.9 72 94 50 1/27/20 17:00 75 109/78 (88) 91 Vapotherm 20.00 50.00 04/23/19 16:00 36.9 04/23/19 16:00 77 147/73 (97) 89 Vapotherm 20.00 50.00 04/23/19 15:36 92 Vapotherm 20.00 50 04/23/19 15:00 73 158/76 (103) 91 Vapotherm 20.00 50.00 04/23/19 14:02 96 Vapotherm 20.00 50 04/23/19 14:00 71 20 151/70 (97) 91 Vapotherm 20.00 50.00 04/23/19 13:00 137/66 (89) Vapotherm 20.00 50.00 04/23/19 12:44 65 04/23/19 12:00 80 112/72 (85) 93 Vapotherm 20.00 50.00 04/23/19 12:00 37.1 04/23/19 11:44 92 Vapotherm 20.00 50 04/23/19 11:00 75 133/57 (82) 94 Vapotherm 20.00 50.00 04/23/19 10:22 92 Vapotherm 20.00 50 04/23/19 10:00 67 102/85 (91) 89 Vapotherm 20.00 50.00 04/23/19 09:00 67 157/90 (112) 90 Vapotherm 20.00 50.00 04/23/19 08:06 Vapotherm 20.00 50.00 04/23/19 08:00 90 Vapotherm 20.00 50 04/23/19 08:00 70 154/65 (94) 89 NIV Bilevel 50.00 04/23/19 08:00 36.8 04/23/19 07:00 64 174/88 (116) 94 NIV Bilevel 50.00 04/23/19 07:00 93 Vapotherm 16.00 40 04/23/19 06:45 60 04/23/19 06:00 63 160/76 (104) 95 NIV Bilevel 50.00 I & O 04/24/19 07:00 Intake Total 3685 ml Output Total 6450 ml Balance -2765 ml Height & Weight Height: 5'5.00" Weight: 380lbs. 0.0oz. [id number]; 77.57 BMI Method: General Appearance: Anxious, Chronically ill, Mild Distress, Obese HEENT: Pharynx Normal, Moist Mucous Membranes Neck: Non Tender, Supple, Other (hursutism on chin ) Respiratory: Accessory Muscle Use, Crackles, Decreased Breath Sounds, Wheezing Cardiovascular: Regular Rate, Rhythm, No Gallop, No Murmur, Normal Peripheral Pulses Capillary Refill: Less Than 3 Seconds Extremity: No Calf Tenderness, Inflammation, Pedal Edema (+3 pitting on the right, +4 pitting on the right ), Swelling (L medial malleolus ), Other (scaling over feet b/l ) Neurologic/Psychiatric: Alert, Oriented x3 Skin: Normal Color, Warm/Dry Lymphatic: No Adenopathy Results Lab Laboratory Tests 04/22/19 22:02 04/23/19 04:25 04/24/19 03:55 Assessment/Plan Assessment/Plan Acute on chronic respiratory failure -noninvasive ventilation currently -Check Bilateral dopplers -Therapeutic dose lovenox currently -Dopplers of LE are negative for DVT -Will check V/Q scan -PT is too large for CT scanner. - C02 -- 57 - Echo results reviewed Morbid obesity with OHS -Pt will benefit from home vent to mask -C02 on chem is 53 Pulmonary edema secondary to grade II diastolic dysfunction -Lasix 40mg BID UTI -Rocephin COPD -Duonebs -Solumedrol -Oxygen CAD -Cardiology following -Hx of stent placement RUBENS RIVERA DO Apr 24, 2019 05:09
[2019-04-24] MEDS: FUROSEMIDE 40 MG/4 ML INJ (LASIX) IVP SCH ×2 (05:47→17:46)
[2019-04-24] MEDS: inSUlin ASPART (NovoLOG) 1 UNIT/0.01 ML (CHARGE PER UNIT) SC SCH ×6 (05:48→20:48)
[2019-04-24] MEDS ORDERED: NON-FORMULARY MEDICATION 1 EA EA (Insulin Aspart (Novolog Flexpen) 18 UNITS) SQ SCH (06:00)
--- NOTE | 2019-04-24 07:56 | Diagnostic Imaging Report ---
CHEST 1 VIEW, AP/PA ONLY Indication: Tachycardia Comparison: 04/23/2019 Findings: Stable enlargement of the cardiac silhouette. Central vascular indistinctness is unchanged but remain partly due to patient's large body habitus and portable technique. No new consolidations. No appreciable pleural effusion or pneumothorax. Impression: 1. Unchanged cardiomegaly without adverse development. Dictated by: Dictated on workstation # [id number]
--- NOTE | 2019-04-24 08:22 | Cardiology Progress Note ---
Subjective Date Seen by Provider: Apr 24, 2019 Time Seen by Provider: 08:03 Subjective/Events-last exam Pt lying in bed comfortably. Slept well denies any cardiac sx at this time. Review of Systems General: No Chills, No Night Sweats HEENT: No Head Aches, No Visual Changes Pulmonary: Dyspnea; No Cough Cardiovascular: No: Chest Pain, Palpitations Gastrointestinal: No: Nausea, Vomiting Focused Exam Lactate Level 04/22/19 22:02: Lactic Acid Level 0.84 Objective-Cardiology Exam Last Set of Vital Signs Vital Signs 04/24/19 04/24/19 04/24/19 11:00 11:50 12:00 Temp 36.3 Pulse 67 Resp 19 B/P (MAP) 131/98 (109) Pulse Ox 88 O2 Delivery Vapotherm O2 Flow Rate 10.00 50.00 FiO2 50 Capillary Refill : Less Than 3 Seconds I&O Intake and Output 04/24/19 00:00 Intake Total 3235 ml Output Total 7525 ml Balance -4290 ml Intake Oral 2225 ml IV Total 1010 ml Output Urine Total 7525 ml General: Alert, Oriented X3 HEENT: Atraumatic Lungs: Clear to Auscultation Heart: Normal S1, Normal S2, Other (irregular) Extremities: No Clubbing, No Cyanosis Results Lab Laboratory Tests 04/24/19 03:55 A/P-Cardiology Assessment/Plan Acute respiratory failure, improving, on Vapotherm, improving slowly. Managed by Dr. Abraham UTI, leukocytosis, Gram negative Bacilli isolated, managed by Primary care team Elevated BNP, echocardiogram showed normal LV size and function with ejection fraction 50-55 percent. Pulmonary hypertension with PA pressure 45-50 mmHg. Elevated D-dimer -Bilat Venous Doppler on04/24/2019 showed No evidence of right or left lower extremity DVT, followed by Dr. Abraham COPD & OHS, followed and managed by Dr. Abraham Hyperkalemia, Resolved, Continue to monitor CAD w/ 2 stents -Cardiac Cath in 2016 showed Mild to moderate CAD, nonobstructive, disease with patent stents in the right coronary artery & Mildly elevated LVEDP HTN, better controlled, continue to monitor blood pressure Insulin Dependent DMII-Managed by Primary Care team Hyperlipidemia Hypothyroidism GERD Poor hygiene Clinical Quality Measures DVT/VTE Risk/Contraindication: Risk Factor Score Per Nursin RFS Level Per Nursing on Admit: 4+=Very High Contraindications-Mechi: Other *list below* Other: possible DVT Supervisory-Addendum Brief Verification & Attestation Participated in pt care: history, MDM, physical Personally performed: exam, history, MDM, supervision of care Care discussed with: Medical Student Procedures: n/a Results interpretation: Verified all documentation Verification and Attestation of Medical Student E/M Service A medical student performed and documented this service in my presence. I reviewed and verified all information documented by the medical student and made modifications to such information, when appropriate. I personally performed the physical exam and medical decision making. Patient was seen and evaluated, still on Vapotherm but reporting improvement in her symptoms. On examination heart is irregular, having frequent atrial and ventricular premature contractions Bilateral rhonchi Continue on current medication, monitor electrolytes. No changes are recommended Belle Garcia, Apr 24, 2019,12:56 [facility] Apr 24, 2019 8:22 am BELLE GARCIA MD Apr 24, 2019 12:57 pm
[2019-04-24] MEDS ORDERED: glipiZIDE XL 5 MG (GLUCOTROL XL) TAB PO SCH (09:00)
--- NOTE | 2019-04-24 09:15 | Occupational Ther Daily Note ---
OT Current Status-Daily Note Subjective No pain reported. Appearance Pt. in bed on vapotherm. Bipap removed earlier this a.m. Pt. doing well. Mental Status/Objective Patient Orientation: Person, Place, Time, Situation Attachments: Mack Catheter, IV, Oxygen, Telemetry ADL-Treatment Therapy Code Descriptions/Definitions Functional [place] Measure: 0=Not Assessed/NA 4=Minimal Assistance 1=Total Assistance 5=Supervision or Setup 2=Maximal Assistance 6=Modified [place] 3=Moderate Assistance 7=Complete IndependenceSCALE: Activities may be completed with or without assistive devices. 7-Oxtpfrjrgr-yzayzuw completes the activity by him/herself with no assistance from a helper. 5-Set-up or Clean-up Assistance-helper sets up or cleans up; patient completes activity. [place] assists only prior to or following the activity. 4-Supervision or Touching Assistance-helper provides verbal cues and/or touching/steadying and/or contact guard assistance as patient completes activity. Assistance may be provided throughout the activity or intermittently. 3-Partial/Moderate Assistance-helper does LESS THAN HALF the effort. [place] lifts, holds or supports trunk or limbs, but provides less than half the effort. 2-Substantial/Maximal Assistance-helper does MORE THAN HALF the effort. [place] lifts or holds trunk or limbs and provides more than half the effort. 0-Vdxgdumzh-btpplp does ALL the effort. Patient does none of the effort to complete the activity. Or, the assistance of 2 or more helpers is required for the patient to complete the activity. If activity was not attempted, code reason: 7-Patient Refused. 9-Not Applicable-not attempted and the patient did not perform the activity before the current illness, exacerbation or injury. 10-Not Attempted due to Environmental Limitations-(lack of equipment, weather restraints, etc.). 88-Not Attempted due to Medical Conditions or Safety Concerns. Eating (QC): 5 Oral Hygiene (QC): 4 (SBA/set up at bed level to brush teeth.) OT placed bed in chair position. Pt. states that this feels good. Pt. washed face with warm wash cloth, brushed teeth, and shaved face after set up and with SBA. OT applied warm shampoo cap and washed pt's hair. Pt. able to brush hair at bed level after. OT monitored pt's 02 sats throughout treatment. Sats ranged from 95%-85%. Sats would drop mainly when pt. talking. Cues given throughout to take deep breathes. Sats would recover quickly. Bed placed back in regular position with HOB elevated. Pt. issued deck of cards, as she states that she enjoys playing solitaire. All needs met. Education OT Patient Education: Correct positioning, Modified ADL techniques, Progress toward Goal/Update tx plan, Purpose of tx/functional activities, Reviewed precautions, Rehab process Teaching Recipient: Patient Teaching Methods: Demonstration, Discussion Response to Teaching: Verbalize Understanding, Return Demonstration OT Short Term Goals Short Term Goals Time Frame: Apr 30, 2019 Eatin Oral hygiene: 5 Toileting hygiene: 3 (Mod assist with AE) Putting on/taking off footwear: 3 (Mod assist with AE) OT Correction Goals Correction Goals Time Frame: May 07, 2019 Eating (QC): 6 Oral Hygiene (QC): 6 Toileting Hygiene (QC): 4 (SBA with AE) On/Off Footwear (QC): 4 (SBA with AE) Additional Goals: 1-Demonstrate ADL Tasks, 2-Verbalize Understanding, 3- ImproveStrength/Ron 1=Demonstrate adherence to instructed precautions during ADL tasks. 2=Patient will verbalize/demonstrate understanding of assistive devices/modifications for ADL. 3=Patient will improve strength/tolerance for activity to enable patient to perform ADL's. OT Education/Plan Problem List/Assessment Assessment: Decreased Activ Tolerance, Impaired Bed Mobility, Impaired I ADL's, Impaired Self-Care Skills Discharge Recommendations Plan/Recommendations: Continue POC Treatment Plan/Plan of Care Treatment,Training & Education: Yes Patient would benefit from OT for education, treatment and training to promote independence in ADL's, mobility, safety and/or upper extremity function for ADL's. Plan of Care: ADL Retraining, Functional Mobility, UE Funct Exercise/Act Treatment Duration: May 07, 2019 Frequency: 5 times per week Estimated Hrs Per Day: .5 hour per day Agreement: Yes Rehab Potential: Fair Time/GCodes Start Time: 08:25 Stop Time: 09:00 Total Time Billed (hr/min): 35 Billed Treatment Time 1, ADL x 2 LE LUDWIG OT Apr 24, 2019 09:15
--- NOTE | 2019-04-24 09:42 | Physical Therapy Daily Note ---
PT Daily Note-Current Subjective Patient agreeable to therapy. Appearance Patient in recliner with call light and bedside table within reach. Mental Status Patient Orientation: Normal For Age Attachments: Oxygen (Vapotherm), Mack Catheter, IV Transfers SCALE: Activities may be completed with or without assistive devices. 1-Xmzpjicqrq-fztgtee completes the activity by him/herself with no assistance from a helper. 5-Set-up or Clean-up Assistance-helper sets up or cleans up; patient completes activity. [place] assists only prior to or following the activity. 4-Supervision or Touching Assistance-helper provides verbal cues and/or touching/steadying and/or contact guard assistance as patient completes activity. Assistance may be provided throughout the activity or intermittently. 3-Partial/Moderate Assistance-helper does LESS THAN HALF the effort. [place] lift s, holds or supports trunk or limbs, but provides less than half the effort. 2-Substantial/Maximal Assistance-helper does MORE THAN HALF the effort. [place] lifts or holds trunk or limbs and provides more than half the effort. 5-Ybalkgtmv-nfrkbh does ALL the effort. Patient does none of the effort to complete the activity. Or, the assistance of 2 or more helpers is required for the patient to complete the activity. If activity was not attempted, code reason: 7-Patient Refused. 9-Not Applicable-not attempted and the patient did not perform the activity before the current illness, exacerbation or injury. 10-Not Attempted due to Environmental Limitations-(lack of equipment, weather restraints, etc.). 88-Not Attempted due to Medical Conditions or Safety Concerns. Roll Left & Right (QC): 3 Lying to Sitting/Side of Bed(Q: 3 Sit to Stand (QC): 3 Chair/Nxx-mm-Bashm Xfer(QC): 3 due to morbid obesity Gait Training Does the Patient Walk?: No and Walking Goal IS indicated Wheelchair Training Does the Pt Use a Wheelchair?: No Exercises Seated Therapy Exercises: Ankle pumps (15BLE), Long arc quads (15BLE) Treatments Exercises. Transfer Assessment Patient was able to participate more in bed mobility today as compared to initial evaluation. 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 Software Development Engineer Goals [employer]one Software Development Engineer Goals PT Assisted Goals Time Frame: Apr 30, 2019 Roll Left & Right (QC): 6 Sit to Lying (QC): 3 Lying-Sitting on Side/Bed(QC): 3 Sit to Stand (QC): 6 Chair/Vta-ub-Zrgkm Xfer(QC): 6 Does the Patient Walk: Yes Walk 10 feet (QC): 6 Walk 50ft with 2 Turns (QC): 6 PT Plan Problem List Problem List: Activity Tolerance, Functional Strength, Safety, Balance, Gait, Transfer, Bed Mobility, ROM Treatment/Plan Treatment Plan: Continue Plan of Care Treatment Plan: Bed Mobility, Education, Functional Activity Ron, Functional Strength, Gait, Safety, Therapeutic Exercise, Transfers Treatment Duration: Apr 30, 2019 Frequency: 6 times per week Estimated Hrs Per Day: .25 hour per day Patient and/or Family Agrees t: Yes Safety Risks/Education Patient Education: Transfer Techniques Teaching Recipient: Patient Teaching Methods: Discussion Response to Teaching: Reinforcement Needed Time/GCodes Time In: 902 Time Out: 917 Total Billed Treatment Time: 15 Total Billed Treatment 1 visit FA (15 minutes) SIL HENRIQUEZ PT Apr 24, 2019 09:42
[2019-04-24] MEDS: OMEGA 3 (FISH OIL) 1000 MG CAP PO SCH ×2 (10:14→17:46)
[2019-04-24] MEDS: SENNOSIDES 8.6 MG (SENOKOT) TAB PO SCH ×2 (10:14→20:42)
[2019-04-24] MEDS: meTOprolol TARTRATE 25 MG (LOPRESSOR) TABLET PO SCH ×2 (10:14→20:42)
--- NOTE | 2019-04-24 10:14 | NUR ---
Pastoral care visit.
[2019-04-24] MEDS: CLOPIDOGREL 75 MG (PLAVIX) TABLET PO SCH (10:15)
[2019-04-24] MEDS: DOCUSATE SODIUM 100 MG (COLACE) CAP PO SCH ×2 (10:15→20:42)
[2019-04-24] MEDS: LEVOTHYROXINE 100 MCG (LEVOTHROID) TAB PO SCH (10:15)
[2019-04-24] MEDS: FENOFIBRATE 134 MG (LOFIBRA) CAPSULE PO SCH (10:15)
[2019-04-24] MEDS: LEVOTHYROXINE 75 MCG (LEVOTHROID) TABLET PO SCH (10:16)
[2019-04-24] MEDS: PANTOPRAZOLE 40 MG (PROTONIX) TAB PO SCH (10:18)
--- NOTE | 2019-04-24 10:57 | Progress Note - Hospitalist ---
QUYNH COSTA,MED STUDENT 04/24/19 1057: Subjective HPI/CC On Admission Date Seen by Provider: Apr 24, 2019 Time Seen by Provider: 08:06 CC: Respiratory distress HPI: This is a 64yoWF clinic patient of Dr Styles and Dr Garcia who has h/o CAD s/p 2 stents and morbid obesity who wears O2 at night who presented to the ICU at [facility] from [facility] due to cough and dyspnea for the past few days with low grade subjective fever. CXR was negative at [facility] and wbc was 12k so I was called and I requested further w/u and I assessed her to need specialty care of Pulmo and Cards so arrangements were made to move to [facility] for higher level of care. Influenza was negative and Lactic acid was normal but d-dimer was elevated at 6 45 and ABG revealed hypoxemia at 67 and hypercapnia at 56 with pH 7.39 and BNP negative. Lovenox 120mg SQ was given one dose in [facility] ER. Samantha Abraham and Robert were both notified. Subjective/Events-last exam Pt states SOB, cough markedly improved Breathing treatments have noticeable impact Last BM was 04/21/2019 but no abd. pain. Received senna last night Participating in PT/OT, getting out of bed into chair with assistance Requesting something for her cough/irritated throat Focused Exam Lactate Level 04/22/19 22:02: Lactic Acid Level 0.84 Objective Exam Vital Signs Vital Signs Date Time Temp Pulse Resp B/P (MAP) Pulse Ox O2 Delivery O2 Flow Rate FiO2 04/24/19 09:00 46 38 125/62 (83) 89 Vapotherm 20.00 50.00 04/24/19 07:15 50 04/24/19 04:00 36.6 Capillary Refill : Less Than 3 Seconds General Appearance: No Apparent Distress, WD/WN, Obese HEENT: Moist Mucous Membranes, Pharyngeal Erythema Respiratory: Chest Non Tender, Crackles (improved ), Wheezing (slight ) Cardiovascular: Regular Rate, Rhythm, No Gallop, No Murmur Extremity: No Calf Tenderness, Inflammation, Pedal Edema (+4 ) Neurologic/Psychiatric: Alert, Oriented x3 Skin: Warm/Dry, Pallor Results/Procedures Lab Laboratory Tests 04/24/19 03:55 Patient resulted labs reviewed. Assessment/Plan Assessment and Plan Assess & Plan/Chief Complaint Assessment Respiratory insufficiency Respiratory acidosis - improved Pulmonary hypertension Hyperkalemia - resolved Elevated BNP Morbid obesity Plan Add antitussives Consulted pulm, cardio Pt cannot fit into CT. Venous doppler r/o LE DVTs. will continue to Tx PE empirically with lovenox. Consider switching to NOAC in 8 days to agent such as apixaban for at least three months. Due to body habitus, pt may benefit from indefinite anticoag. Continue breathing treatments, nuonebs, solumedrol Pt will require CPAP machine at home Cardio following echo Clinical Quality Measures DVT/VTE Risk/Contraindication: Risk Factor Score Per Nursin RFS Level Per Nursing on Admit: 4+=Very High Contraindications-Mechi: Other *list below* Other: possible DVT JANNY BLISS DO 04/24/19 1950: Subjective Subjective/Events-last exam Pt is much improved Wheezing is much improved BNP 163 ultrasound revealed no DVT Chest x ray no changes ABG improved Bowels moved today PT and OT ordered May be an inpatient rehab candidate Review of Systems Pulmonary: Dyspnea, Cough Objective Exam General Appearance: No Apparent Distress, WD/WN, Chronically ill, Obese Respiratory: No Respiratory Distress, Accessory Muscle Use, Crackles (improved ), Wheezing (slight ) Assessment/Plan Assessment and Plan Assess & Plan/Chief Complaint Vapotherm maintained Monitor closely Obesity related issues Diagnosis/Problems Diagnosis/Problems (1) Hypoxemia (2) Hypercapnia (3) Respiratory insufficiency (4) GERD (gastroesophageal reflux disease) (5) Obesities, morbid (6) Obesity hypoventilation syndrome (7) Elevated d-dimer Supervisory-Addendum Brief Verification & Attestation Participated in pt care: history, MDM, physical Personally performed: exam, history, MDM, supervision of care Care discussed with: Medical Student Procedures: n/a Results interpretation: Verified all documentation Verification and Attestation of Medical Student E/M Service A medical student performed and documented this service in my presence. I reviewed and verified all information documented by the medical student and made modifications to such information, when appropriate. I personally performed the physical exam and medical decision making. Janny Bliss, Apr 24, 2019,19:50 QUYNH COSTA,MED STUDENT Apr 24, 2019 10:57 JANNY BLISS DO Apr 24, 2019 19:50
[2019-04-24] MEDS: glipiZIDE XL 10 MG (GLUCOTROL XL) TAB PO SCH (11:00)
[2019-04-24] MEDS: APIXABAN 5 MG (ELIQUIS) TABLET PO SCH ×2 (11:30→20:43)
[2019-04-24] MEDS ORDERED: PATIENT MAY USE OWN MEDS, ALL MC SCH (17:30)
[2019-04-24] MEDS: MULTIVIT W/MINERALS TAB (THERAGRAN M) PO SCH (17:46)
[2019-04-24] MEDS: lisINopril 5 MG (PRINIVIL) TABLET PO SCH (17:46)
[2019-04-24] MEDS: cefTRIAXone FOR IV USE 1,000 MG in WATER (STERILE) FOR INJECTION 10 ML IV SCH (20:42)
[2019-04-24] MEDS: ASPIRIN E.C. 81 MG (ECOTRIN) TAB PO SCH (20:42)
[2019-04-24] MEDS: VICTOZA SC SCH (20:43)
[2019-04-24] MEDS: ALPRAZolam 0.25 MG (XANAX) TAB PO PRN (20:44)
[2019-04-25] VITALS (14 sets, daily range): BP systolic 99–187; BP diastolic 60–85
[2019-04-25] MEDS: methylPREDNISolone 40 MG/ML (Solu-MEDROL) VIAL IV SCH ×4 (00:28→17:04)
[2019-04-25] MEDS: RT-ALBUTEROL/IPRATROPIUM 3 ML (DUONEB) VIAL INH SCH ×6 (01:56→23:31)
[2019-04-25 04:12] LABS: BASOPHILS % (AUTO) 0 % (0-10); EOSINOPHILS % (AUTO) 0 % (0-10); HEMATOCRIT 41 % (35-52); HEMOGLOBIN 12.3 G/DL (11.5-16.0); LYMPHOCYTES # (AUTO) 0.8 X 10^3 (1.0-4.0); LYMPHOCYTES % (AUTO) 5 % (12-44); MEAN CORPUSCULAR HEMOGLOBIN 29 PG (25-34); MEAN CORPUSCULAR HGB CONC 30 G/DL (32-36); MEAN CORPUSCULAR VOLUME 96 FL (80-99); MEAN PLATELET VOLUME 9.8 FL (7.4-10.4); MONOCYTES # (AUTO) 1.1 X 10^3 (0.0-1.0); MONOCYTES % (AUTO) 8 % (0-12); NEUTROPHILS # (AUTO) 12.9 X 10^3 (1.8-7.8); NEUTROPHILS % (AUTO) 87 % (42-75); PLATELET COUNT 349 10^3/uL (130-400); RED CELL DISTRIBUTION WIDTH 16.9 % (10.0-14.5); WHITE BLOOD COUNT 14.8 10^3/uL (4.3-11.0)
[2019-04-25 04:31] LABS: ANISOCYTOSIS SLIGHT; BAND NEUTROPHILS 3 %; LYMPHOCYTES % (MANUAL) 4 %; MONOCYTES % (MANUAL) 6 %; NEUTROPHILS % (MANUAL) 87 %; STOMATOCYTES MARKED
[2019-04-25 04:34] LABS: CALCIUM 9.4 MG/DL (8.5-10.1); CREATININE SERUM 1.22 MG/DL (0.60-1.30); MAGNESIUM 2.1 MG/DL (1.6-2.4); PHOSPHORUS 3.4 MG/DL (2.3-4.7); POTASSIUM 4.9 MMOL/L (3.6-5.0)
[2019-04-25 04:47] LABS: ABG BASE EXCESS 13.5 MMOL/L (-2.5-2.5); ABG OXYGEN SATURATION 98 % (94-100); ABG PCO2 60 MMHG (35-45); ABG PH 7.42 (7.37-7.43); ABG PO2 94 MMHG (79-93); ABG TCO2 40.6 MMOL/L (21.0-31.0)
[2019-04-25 04:48] LABS: ALLENS TEST YES-POS
[2019-04-25 04:49] LABS: INSPIRED O2 50%; PATIENT TEMP 36.6; VENTILATOR NO
[2019-04-25] MEDS: POTASSIUM CL 10MEQ/50ML IVPB 50 ML IV SCH (05:15)
[2019-04-25] MEDS: MAGNESIUM 1 GM/100 ML IVPB 100 ML IV SCH (05:16)
[2019-04-25] MEDS: KCL 20 MEQ TAB (K-DUR) PO SCH (05:16)
--- NOTE | 2019-04-25 05:42 | Pulmonary Progress Note ---
Subjective Time Seen by a Provider: 10:17 Subjective/Events-last exam Pt appears to be doing better. Sepsis Event Evaluation Height, Weight, BMI Height: 5'5.00" Weight: 380lbs. 0.0oz. [id number]; 77.57 BMI Method: Focused Exam Lactate Level 04/22/19 22:02: Lactic Acid Level 0.84 Exam Exam Vital Signs Date Time Temp Pulse Resp B/P (MAP) Pulse Ox O2 Delivery O2 Flow Rate FiO2 04/25/19 05:00 57 14 154/70 (98) 96 NIV Bilevel 50.00 04/25/19 04:00 69 15 187/82 (117) 97 NIV Bilevel 50.00 04/25/19 04:00 NIV Bilevel 50 04/25/19 03:00 48 18 137/62 (87) 91 NIV Bilevel 50.00 04/25/19 02:00 54 17 145/64 (91) 96 NIV Bilevel 50.00 04/25/19 01:56 53 17 96 50.00 04/25/19 01:00 61 04/25/19 01:00 61 17 144/66 (92) 93 NIV Bilevel 50.00 04/25/19 00:28 37.2 NIV Bilevel 50.00 04/25/19 00:00 NIV Bilevel 50 04/25/19 00:00 62 13 145/60 (88) 93 NIV Bilevel 50.00 04/24/19 23:52 65 18 97 NIV Bilevel 50.00 04/24/19 23:50 61 23 95 50.00 04/24/19 23:00 73 22 145/62 (89) 94 High Flow N/C 7.00 04/24/19 22:00 71 13 142/77 (98) 95 High Flow N/C 7.00 04/24/19 21:20 High Flow N/C 7.00 04/24/19 21:19 Nasal Cannula 8.00 92 04/24/19 21:00 76 27 152/76 (101) 94 High Flow N/C 8.00 04/24/19 20:00 69 21 168/82 (110) 94 High Flow N/C 8.00 04/24/19 20:00 36.5 04/24/19 20:00 High Flow N/C 8.00 04/24/19 19:00 59 18 149/71 (97) 96 High Flow N/C 8.00 04/24/19 19:00 59 04/24/19 18:04 High Flow N/C 8.00 97 04/24/19 18:04 High Flow N/C 8.00 04/24/19 18:00 67 33 172/82 (112) 98 High Flow N/C 10.00 04/24/19 17:00 61 19 161/88 (112) 97 High Flow N/C 10.00 04/24/19 16:00 High Flow N/C 04/24/19 16:00 66 15 155/74 (101) 98 High Flow N/C 10.00 04/24/19 15:52 36.6 04/24/19 15:28 High Flow N/C 10.00 04/24/19 15:21 High Flow N/C 10.00 97 04/24/19 15:00 61 38 144/67 (92) 91 Vapotherm 10.00 50.00 04/24/19 14:00 66 24 145/62 (89) 91 Vapotherm 10.00 50.00 04/24/19 13:00 69 11 132/65 (87) 87 Vapotherm 10.00 50.00 04/24/19 13:00 66 04/24/19 12:00 NIV Bilevel 20.00 50 04/24/19 12:00 67 19 131/98 (109) 88 Vapotherm 10.00 50.00 04/24/19 11:50 36.3 04/24/19 11:03 Vapotherm 10.00 50.00 04/24/19 11:00 95 Vapotherm 20.00 50 04/24/19 11:00 66 14 138/74 (95) 90 Vapotherm 20.00 50.00 04/24/19 10:00 72 23 130/69 (89) 90 Vapotherm 20.00 50.00 04/24/19 09:00 46 38 125/62 (83) 89 Vapotherm 20.00 50.00 04/24/19 08:00 77 129/61 (83) 92 Vapotherm 20.00 50.00 04/24/19 08:00 NIV Bilevel 20.00 50 04/24/19 07:15 96 Vapotherm 20.00 50 04/24/19 07:00 58 1/28/20 07:00 61 98/77 (84) 95 NIV Bilevel 50.00 04/24/19 06:00 55 131/61 (84) 92 NIV Bilevel 50.00 I & O 04/25/19 07:00 Intake Total 2100 ml Output Total 5525 ml Balance -3425 ml Height & Weight Height: 5'5.00" Weight: 380lbs. 0.0oz. [id number]; 77.57 BMI Method: General Appearance: No Apparent Distress, WD/WN, Chronically ill, Obese HEENT: Moist Mucous Membranes, Pharyngeal Erythema Neck: Non Tender, Supple, Other (hursutism on chin ) Respiratory: No Respiratory Distress, Accessory Muscle Use, Crackles (improved ), Wheezing (slight ) Cardiovascular: Regular Rate, Rhythm, No Gallop, No Murmur Capillary Refill: Less Than 3 Seconds Extremity: No Calf Tenderness, Inflammation, Pedal Edema (+4 ) Neurologic/Psychiatric: Alert, Oriented x3 Skin: Warm/Dry, Pallor Lymphatic: No Adenopathy Results Lab Laboratory Tests 04/24/19 03:55 04/25/19 03:40 Assessment/Plan Assessment/Plan Acute on chronic respiratory failure -noninvasive ventilation currently -[facility] has approved vent to mask. - Bilateral dopplers - negative -Therapeutic dose lovenox -- changed to ELiquis -Dopplers of LE are negative for DVT -Will check V/Q scan -PT is too large for CT scanner. - C02 -- 57 - Echo results reviewed Morbid obesity with OHS -C02 on chem is 53 Pulmonary edema secondary to grade II diastolic dysfunction -Lasix 40mg BID UTI -Rocephin COPD -Duonebs -Solumedrol -Oxygen CAD -Cardiology following -Hx of stent placement IDRUBENS ALEXANDER DO Apr 25, 2019 05:42
[2019-04-25] MEDS: inSUlin ASPART (NovoLOG) 1 UNIT/0.01 ML (CHARGE PER UNIT) SC SCH ×7 (06:14→21:53)
[2019-04-25] MEDS: FUROSEMIDE 40 MG/4 ML INJ (LASIX) IVP SCH ×2 (06:14→17:04)
[2019-04-25] MEDS: NS IV 1000 ML 1,000 ML IV SCH (06:24)
--- NOTE | 2019-04-25 08:00 | Diagnostic Imaging Report ---
EXAMINATION: Chest 1 view HISTORY: Tachycardia COMPARISON: 04/24/2019 FINDINGS: There is pulmonary vascular congestion with enlargement of the heart. No pneumothorax is seen. Left base is obscured by overlying soft tissues. There is mild right base atelectasis. IMPRESSION: 1. Pulmonary vascular congestion and cardiomegaly, unchanged. Dictated by: Dictated on workstation # [id number]
--- NOTE | 2019-04-25 08:17 | Cardiology Progress Note ---
Subjective Date Seen by Provider: Apr 25, 2019 Time Seen by Provider: 08:01 Subjective/Events-last exam Pt lying down in bed. does report mild SOB and wheezing but denies any cardiac sx. Reports improved LLE pain Review of Systems General: No Chills, No Night Sweats HEENT: No Head Aches, No Visual Changes Pulmonary: Dyspnea, Cough Cardiovascular: No: Chest Pain, Palpitations, Edema Gastrointestinal: No: Nausea, Vomiting Focused Exam Lactate Level 04/22/19 22:02: Lactic Acid Level 0.84 Objective-Cardiology Exam Last Set of Vital Signs Vital Signs 04/25/19 04/25/19 04/25/19 04/25/19 00:28 05:00 06:00 06:04 Temp 37.2 Pulse 56 Resp 14 B/P (MAP) 155/75 (101) Pulse Ox 96 O2 Delivery Nasal Cannula O2 Flow Rate 6.00 FiO2 94 Capillary Refill : Less Than 3 Seconds I&O Intake and Output 04/25/19 00:00 Intake Total 2550 ml Output Total 5800 ml Balance -3250 ml Intake Oral 2550 ml Output Urine Total 5800 ml General: Alert, Oriented X3 HEENT: Atraumatic Lungs: Other (expiratory wheezes to bilat upper lobes) Heart: Normal S1, Normal S2, Other (irregular, multiple PVCs and PACs) Extremities: No Clubbing, No Cyanosis Results Lab Laboratory Tests 04/25/19 03:40 A/P-Cardiology Admission Diagnosis Acute resp failure UTI HTN HLD Assessment/Plan Status post respiratory failure, compensated respiratory acidosis, Improving, Managed by Dr. Abraham UTI, leukocytosis, Gram negative Bacilli isolated, Receiving Ceftriaxone, managed by Primary care team HTN, better controlled but remains mildly elevated, low pulse, Adjust beta dina dose, continue to monitor CAD w/ 2 stents -Cardiac Cath in 2016 showed Mild to moderate CAD, nonobstructive, disease with patent stents in the right coronary artery & Mildly elevated LVEDP. Echocardiogram () showed normal LV size and function with ejection fraction 50-55 percent. Pulmonary hypertension with PA pressure 45-50 mmHg. CXR this AM shows pulmonary vascular congestion unchanged from previous days COPD & OHS, followed and managed by Dr. Abraham Insulin Dependent DMII-Managed by Primary Care team Hyperlipidemia, LDL 57, controlled on current medications Hypothyroidism GERD Poor hygiene Clinical Quality Measures DVT/VTE Risk/Contraindication: Risk Factor Score Per Nursin RFS Level Per Nursing on Admit: 4+=Very High Contraindications-Mechi: Other *list below* Other: possible DVT Supervisory-Addendum Brief Verification & Attestation Participated in pt care: history, MDM, physical Personally performed: exam, history, MDM, supervision of care Care discussed with: Medical Student Procedures: n/a Results interpretation: Verified all documentation Verification and Attestation of Medical Student E/M Service A medical student performed and documented this service in my presence. I reviewed and verified all information documented by the medical student and made modifications to such information, when appropriate. I personally performed the physical exam and medical decision making. Status post respiratory failure, better at this time, still having some wheezing UTI receiving antibiotics. Improving Lipid profile showed LDL of 57, continue to monitor Continue on current medication and okay for transfer to medical floor Godwin Garcia, Apr 25, 2019,09:59 [facility] Apr 25, 2019 08:17 GODWIN GARCIA MD Apr 25, 2019 10:00
--- NOTE | 2019-04-25 08:54 | Physical Therapy Daily Note ---
PT Daily Note-Current Subjective Patient in bed pre tx, agrees to PT, states she has arthritis pain but not too bad in her right hip and knee. Appearance Patient in recliner with legs elevated post tx, has nurse call, phone, tray, all needs met. Mental Status Patient Orientation: Person, Place, Situation Attachments: Oxygen, Mack Catheter Transfers SCALE: Activities may be completed with or without assistive devices. 2-Fdnhztbjal-lkhioec completes the activity by him/herself with no assistance from a helper. 5-Set-up or Clean-up Assistance-helper sets up or cleans up; patient completes activity. [place] assists only prior to or following the activity. 4-Supervision or Touching Assistance-helper provides verbal cues and/or touching/steadying and/or contact guard assistance as patient completes activity. Assistance may be provided throughout the activity or intermittently. 3-Partial/Moderate Assistance-helper does LESS THAN HALF the effort. [place] lifts, holds or supports trunk or limbs, but provides less than half the effort. 2-Substantial/Maximal Assistance-helper does MORE THAN HALF the effort. [place] lifts or holds trunk or limbs and provides more than half the effort. 4-Pehsjvgfg-byhuol does ALL the effort. Patient does none of the effort to complete the activity. Or, the assistance of 2 or more helpers is required for the patient to complete the activity. If activity was not attempted, code reason: 7-Patient Refused. 9-Not Applicable-not attempted and the patient did not perform the activity before the current illness, exacerbation or injury. 10-Not Attempted due to Environmental Limitations-(lack of equipment, weather restraints, etc.). 88-Not Attempted due to Medical Conditions or Safety Concerns. Roll Left & Right (QC): 4 Lying to Sitting/Side of Bed(Q: 4 Sit to Stand (QC): 4 Chair/Ngp-aa-Rffwb Xfer(QC): 4 CGA for sit to stand and transfer but she didn't need assist, tends to lean for pizarro heavily on the walker. Gait Training Distance: 3' Gait Persons Needed: 1 Gait Assistive Device: FWW CGA, slow, leans heavily on the walker Exercises Seated Therapy Exercises: Ankle pumps, Long arc quads Seated Reps: 20 Treatments bed mobility and transfers, ambulation, LE exercise Assessment Current Status: Fair Progress Improved transfers. Patient's O2 stayed at 91% until she got into the recliner and desated with talking to mid 80's, it improved back to 90% with purse lip breathing. PT Longterm Goals Longterm Goals PT Longterm Goals Time Frame: Apr 30, 2019 Roll Left & Right (QC): 6 Sit to Lying (QC): 3 Lying-Sitting on Side/Bed(QC): 3 Sit to Stand (QC): 6 Chair/Lmm-pc-Bnthx Xfer(QC): 6 Does the Patient Walk: Yes Walk 10 feet (QC): 6 Walk 50ft with 2 Turns (QC): 6 PT Plan Problem List Problem List: Activity Tolerance, Functional Strength, Safety, Balance, Gait, Transfer, Bed Mobility, ROM Treatment/Plan Treatment Plan: Continue Plan of Care Treatment Plan: Bed Mobility, Education, Functional Activity Ron, Functional Strength, Gait, Safety, Therapeutic Exercise, Transfers Treatment Duration: Apr 30, 2019 Frequency: 6 times per week Estimated Hrs Per Day: .25 hour per day Patient and/or Family Agrees t: Yes Safety Risks/Education Patient Education: Gait Training, Transfer Techniques, Correct Positioning, Safety Issues Teaching Recipient: Patient Teaching Methods: Demonstration, Discussion Response to Teaching: Reinforcement Needed Time/GCodes Time In: 827 Time Out: 846 Total Billed Treatment Time: 19 Total Billed Treatment 1 visit FA 19' CHARISMA TINAJERO PT Apr 25, 2019 08:54
[2019-04-25] MEDS: ACETAMINOPHEN 325 MG TABLET PO PRN (09:39)
[2019-04-25] MEDS: APIXABAN 5 MG (ELIQUIS) TABLET PO SCH ×2 (09:40→21:54)
[2019-04-25] MEDS: PANTOPRAZOLE 40 MG (PROTONIX) TAB PO SCH (09:40)
[2019-04-25] MEDS: SENNOSIDES 8.6 MG (SENOKOT) TAB PO SCH ×3 (09:40→21:57)
[2019-04-25] MEDS: OMEGA 3 (FISH OIL) 1000 MG CAP PO SCH ×2 (09:40→15:37)
[2019-04-25] MEDS: meTOprolol TARTRATE 25 MG (LOPRESSOR) TABLET PO SCH ×2 (09:40→21:55)
[2019-04-25] MEDS: glipiZIDE XL 10 MG (GLUCOTROL XL) TAB PO SCH (09:40)
[2019-04-25] MEDS: DOCUSATE SODIUM 100 MG (COLACE) CAP PO SCH ×2 (09:41→21:56)
[2019-04-25] MEDS: FENOFIBRATE 134 MG (LOFIBRA) CAPSULE PO SCH (09:41)
[2019-04-25] MEDS: CLOPIDOGREL 75 MG (PLAVIX) TABLET PO SCH (09:41)
[2019-04-25] MEDS ORDERED: guaiFENesin (MUCINEX) 600 MG TAB PO NR (10:30)
[2019-04-25] MEDS: LEVOTHYROXINE 100 MCG (LEVOTHROID) TAB PO SCH (10:50)
[2019-04-25] MEDS: LEVOTHYROXINE 75 MCG (LEVOTHROID) TABLET PO SCH (10:50)
--- NOTE | 2019-04-25 11:06 | Progress Note - Hospitalist ---
QUYNH COSTA,MED STUDENT 04/25/19 1106: Subjective HPI/CC On Admission Date Seen by Provider: Apr 25, 2019 Time Seen by Provider: 07:41 CC: Respiratory distress HPI: This is a 64yoWF clinic patient of Dr Styles and Dr Garcia who has h/o CAD s/p 2 stents and morbid obesity who wears O2 at night who presented to the ICU at [facility] from [facility] due to cough and dyspnea for the past few days with low grade subjective fever. CXR was negative at [facility] and wbc was 12k so I was called and I requested further w/u and I assessed her to need specialty care of Pulmo and Cards so arrangements were made to move to [facility] for higher level of care. Influenza was negative and Lactic acid was normal but d-dimer was elevated at 6 45 and ABG revealed hypoxemia at 67 and hypercapnia at 56 with pH 7.39 and BNP negative. Lovenox 120mg SQ was given one dose in [facility] ER. Samantha Abraham and Robert were both notified. Subjective/Events-last exam Pt feeling well today, states cough and SOB have greatly improved Getting OOB into chair with help of PT complains of continued pain in her leg, requesting Tylenol Complains of throat irritation, would like some mucinex/tesslon pearls Otherwise in good spirits Focused Exam Lactate Level 04/22/19 22:02: Lactic Acid Level 0.84 Objective Exam Vital Signs Vital Signs Date Time Temp Pulse Resp B/P (MAP) Pulse Ox O2 Delivery O2 Flow Rate FiO2 04/25/19 10:28 Nasal Cannula 6.00 92 04/25/19 06:00 56 155/75 (101) 96 04/25/19 05:00 14 04/25/19 00:28 37.2 Capillary Refill : Less Than 3 Seconds General Appearance: No Apparent Distress, Obese Neck: Non Tender, Supple Respiratory: Chest Non Tender, No Accessory Muscle Use, No Respiratory Distress, Crackles (decreased ), Wheezing, Other (on nasal cannula ) Cardiovascular: Regular Rate, Rhythm, No Edema, No Gallop, No Murmur, Normal Peripheral Pulses Extremity: No Calf Tenderness, Pedal Edema (+2, improved from yesterday ) Skin: Normal Color, Warm/Dry Results/Procedures Lab Laboratory Tests 04/25/19 03:40 Patient resulted labs reviewed. Assessment/Plan Assessment and Plan Assess & Plan/Chief Complaint Assessment Respiratory insufficiency Respiratory acidosis - improved Pulmonary hypertension Hyperkalemia - resolved Elevated BNP Morbid obesity Plan Transfer to med/surg floor Add antitussives, mucinex Continue lovenox Consider switching to NOAC in 8 days to agent such as apixaban for at least three months. Due to body habitus, pt may benefit from indefinite anticoag. Continue breathing treatments, nuonebs, solumedrol Pt will require CPAP machine at home Cardio following echo Clinical Quality Measures DVT/VTE Risk/Contraindication: Risk Factor Score Per Nursin RFS Level Per Nursing on Admit: 4+=Very High Contraindications-Mechi: Other *list below* Other: possible DVT JANNY BLISS DO 04/25/192115: Subjective Subjective/Events-last exam Transferring to fourth floor. Mucinex requested, that was ordered. PT and OT ordered. May need inpatient rehab. Cough is much improved. Wheezing is much improved. Vapotherm weaned down now to nasal cannula. Review of Systems General: Fatigue Pulmonary: Dyspnea Objective Exam General Appearance: No Apparent Distress, WD/WN, Chronically ill, Obese Respiratory: Lungs Clear Cardiovascular: Regular Rate, Rhythm Neurologic/Psychiatric: Alert, Oriented x3, No Motor/Sensory Deficits, Normal Mood/Affect Assessment/Plan Assessment and Plan Assess & Plan/Chief Complaint Tx to floor PT/OT Diagnosis/Problems Diagnosis/Problems (1) Respiratory insufficiency (2) Hypoxemia (3) Hypercapnia (4) GERD (gastroesophageal reflux disease) (5) Obesities, morbid (6) Obesity hypoventilation syndrome (7) Elevated d-dimer Supervisory-Addendum Brief Verification & Attestation Participated in pt care: history, MDM, physical Personally performed: exam, history, MDM, supervision of care Care discussed with: Medical Student Procedures: n/a Results interpretation: Verified all documentation Verification and Attestation of Medical Student E/M Service A medical student performed and documented this service in my presence. I reviewed and verified all information documented by the medical student and made modifications to such information, when appropriate. I personally performed the physical exam and medical decision making. Janny Bliss, Apr 25, 2019,21:15 QUYNH COSTA,LUZ MARINA STUDENT Apr 25, 2019 11:06 JANNY BLISS DO Apr 25, 2019 21:16
--- NOTE | 2019-04-25 13:18 | Occupational Ther Daily Note ---
OT Current Status-Daily Note Subjective No pain reported. Appearance Pt. alert and oriented. Pt. is up in chair. Mental Status/Objective Patient Orientation: Person, Place, Time, Situation ADL-Treatment Therapy Code Descriptions/Definitions Functional [place] Measure: 0=Not Assessed/NA 4=Minimal Assistance 1=Total Assistance 5=Supervision or Setup 2=Maximal Assistance 6=Modified [place] 3=Moderate Assistance 7=Complete IndependenceSCALE: Activities may be completed with or without assistive devices. 3-Rjljnlkxkq-otwlriu completes the activity by him/herself with no assistance from a helper. 5-Set-up or Clean-up Assistance-helper sets up or cleans up; patient completes activity. [place] assists only prior to or following the activity. 4-Supervision or Touching Assistance-helper provides verbal cues and/or touching/steadying and/or contact guard assistance as patient completes activity. Assistance may be provided throughout the activity or intermittently. 3-Partial/Moderate Assistance-helper does LESS THAN HALF the effort. [place] lifts, holds or supports trunk or limbs, but provides less than half the effort. 2-Substantial/Maximal Assistance-helper does MORE THAN HALF the effort. [place] lifts or holds trunk or limbs and provides more than half the effort. 6-Wyiafxsii-ulbybt does ALL the effort. Patient does none of the effort to complete the activity. Or, the assistance of 2 or more helpers is required for the patient to complete the activity. If activity was not attempted, code reason: 7-Patient Refused. 9-Not Applicable-not attempted and the patient did not perform the activity before the current illness, exacerbation or injury. 10-Not Attempted due to Environmental Limitations-(lack of equipment, weather restraints, etc.). 88-Not Attempted due to Medical Conditions or Safety Concerns. Other Treatment Pt. had just transferred to chair in room when OT entered. Pt. had transferred with PT. Pt. issued yellow theraband and pink hand sponge for increased UE strength. Pt. completed 20 bilateral hand squeezes with sponge, and then completed 3 bilateral UE exercises x 10 reps each in all planes. Pt. on . Cues required to remind pt. to breathe while completing exercises, as her oxygen sats would drop to 83%. With rest and deep breathing sats would come back to 91%. Pt. also cued at times to take breaths while talking, as her sats would drop with this as well. Pt. verbalizes understanding. All needs met up in chair. Education OT Patient Education: Correct positioning, Exercise program, Progress toward Goal/Update tx plan, Purpose of tx/functional activities, Reviewed precautions, Rehab process Teaching Recipient: Patient Teaching Methods: Demonstration, Discussion Response to Teaching: Verbalize Understanding, Return Demonstration OT Short Term Goals Short Term Goals Time Frame: Apr 30, 2019 Eatin Oral hygiene: 5 Toileting hygiene: 3 (Mod assist with AE) Putting on/taking off footwear: 3 (Mod assist with AE) OT Shelter Goals Shelter Goals Time Frame: May 07, 2019 Eating (QC): 6 Oral Hygiene (QC): 6 Toileting Hygiene (QC): 4 (SBA with AE) On/Off Footwear (QC): 4 (SBA with AE) Additional Goals: 1-Demonstrate ADL Tasks, 2-Verbalize Understanding, 3- ImproveStrength/Ron 1=Demonstrate adherence to instructed precautions during ADL tasks. 2=Patient will verbalize/demonstrate understanding of assistive devices/modifications for ADL. 3=Patient will improve strength/tolerance for activity to enable patient to perform ADL's. OT Education/Plan Problem List/Assessment Assessment: Decreased Activ Tolerance, Impaired I ADL's, Impaired Self-Care Skills Discharge Recommendations Plan/Recommendations: Continue POC Therapy Discharge Recommendati: Home & Family Treatment Plan/Plan of Care Treatment,Training & Education: Yes Patient would benefit from OT for education, treatment and training to promote independence in ADL's, mobility, safety and/or upper extremity function for ADL's. Plan of Care: ADL Retraining, Functional Mobility, UE Funct Exercise/Act Treatment Duration: May 07, 2019 Frequency: 5 times per week Estimated Hrs Per Day: .25 hour per day Agreement: Yes Rehab Potential: Fair Time/GCodes Start Time: 09:10 Stop Time: 09:30 Total Time Billed (hr/min): 20 Billed Treatment Time 1, Ex LE LUDWIG OT Apr 25, 2019 13:18
[2019-04-25] MEDS: MULTIVIT W/MINERALS TAB (THERAGRAN M) PO SCH (15:37)
--- NOTE | 2019-04-25 15:52 | NUR ---
this RN took over patient care at this time. patient alert and orientated. patient sitting in recliner with oxygen on. patient verbalizes no other needs at this time
[2019-04-25] MEDS: guaiFENesin SYRUP 100 MG/5 ML 10 ML (ROBITUSSIN SF) PO PRN ×2 (17:04→22:30)
[2019-04-25] MEDS: lisINopril 5 MG (PRINIVIL) TABLET PO SCH (17:04)
[2019-04-25] MEDS ORDERED: WATER (STERILE) FOR INJECTION 10 ML ONE (21:44)
[2019-04-25] MEDS ORDERED: cefTRIAXone 1,000 MG IV (ROCEPHIN) VIAL ONE (21:44)
[2019-04-25] MEDS: cefTRIAXone FOR IV USE 1,000 MG in WATER (STERILE) FOR INJECTION 10 ML IV SCH (21:52)
[2019-04-25] MEDS: ASPIRIN E.C. 81 MG (ECOTRIN) TAB PO SCH (21:53)
[2019-04-25] MEDS: VICTOZA SC SCH (21:55)
[2019-04-26] VITALS (7 sets, daily range): BP systolic 125–165; BP diastolic 62–76
[2019-04-26] MEDS: methylPREDNISolone 40 MG/ML (Solu-MEDROL) VIAL IV SCH ×2 (00:35→06:04)
[2019-04-26] MEDS: ACETAMINOPHEN 325 MG TABLET PO PRN ×2 (01:50→22:41)
[2019-04-26] MEDS: RT-ALBUTEROL/IPRATROPIUM 3 ML (DUONEB) VIAL INH SCH ×6 (02:43→22:34)
[2019-04-26] MEDS: LEVOTHYROXINE 100 MCG (LEVOTHROID) TAB PO SCH (06:02)
[2019-04-26] MEDS: inSUlin ASPART (NovoLOG) 1 UNIT/0.01 ML (CHARGE PER UNIT) SC SCH ×7 (06:03→20:25)
[2019-04-26] MEDS: LEVOTHYROXINE 75 MCG (LEVOTHROID) TABLET PO SCH (06:03)
[2019-04-26] MEDS: FUROSEMIDE 40 MG/4 ML INJ (LASIX) IVP SCH ×2 (06:04→17:49)
--- NOTE | 2019-04-26 06:08 | Diagnostic Imaging Report ---
Clinical indication: Patient with tachycardia. Exam: Portable chest x-ray upright view. Comparisons: Portable chest x-ray dated 04/25/2019. Findings: Cardiomegaly is again seen. There is mild pulmonary vascular congestion. There is airspace opacification involving both lung bases with left side worse than the right which may represent atelectasis, but superimposed infiltrate cannot be completely excluded. Left costophrenic angle region is blunted and a pleural effusion cannot be completely excluded. There is no pneumothorax. There are degenerative spurs involving the thoracic spine. IMPRESSION: 1: Again seen cardiomegaly with mild pulmonary vascular congestion which could be seen with congestive heart failure. 2: There is airspace opacities in both lung bases (left side more than the right) which may be related to atelectasis or infiltrate. Small left pleural effusion cannot be completely excluded. Chest x-ray 2 views with good inspiratory effort may help better evaluate. Dictated by: Dictated on workstation # [id number]
[2019-04-26 06:18] LABS: BASOPHILS % (AUTO) 0 % (0-10); EOSINOPHILS % (AUTO) 0 % (0-10); HEMATOCRIT 41 % (35-52); HEMOGLOBIN 12.7 G/DL (11.5-16.0); LYMPHOCYTES # (AUTO) 0.8 X 10^3 (1.0-4.0); LYMPHOCYTES % (AUTO) 5 % (12-44); MEAN CORPUSCULAR HEMOGLOBIN 29 PG (25-34); MEAN CORPUSCULAR HGB CONC 31 G/DL (32-36); MEAN CORPUSCULAR VOLUME 96 FL (80-99); MONOCYTES # (AUTO) 1.1 X 10^3 (0.0-1.0); MONOCYTES % (AUTO) 7 % (0-12); NEUTROPHILS # (AUTO) 13.9 X 10^3 (1.8-7.8); NEUTROPHILS % (AUTO) 88 % (42-75); PLATELET COUNT 346 10^3/uL (130-400); RED CELL DISTRIBUTION WIDTH 16.6 % (10.0-14.5); WHITE BLOOD COUNT 15.8 10^3/uL (4.3-11.0)
[2019-04-26 06:38] LABS: CALCIUM 9.5 MG/DL (8.5-10.1); CREATININE SERUM 1.1 MG/DL (0.60-1.30); MAGNESIUM 2.1 MG/DL (1.6-2.4); PHOSPHORUS 3.6 MG/DL (2.3-4.7); POTASSIUM 4.5 MMOL/L (3.6-5.0)
[2019-04-26] MEDS ORDERED: CHLORASEPTIC LOZENGE MM PRN (08:00)
[2019-04-26] MEDS: glipiZIDE XL 10 MG (GLUCOTROL XL) TAB PO SCH (08:12)
[2019-04-26] MEDS: DOCUSATE SODIUM 100 MG (COLACE) CAP PO SCH ×2 (08:12→20:52)
[2019-04-26] MEDS: OMEGA 3 (FISH OIL) 1000 MG CAP PO SCH ×2 (08:12→17:49)
[2019-04-26] MEDS: meTOprolol TARTRATE 25 MG (LOPRESSOR) TABLET PO SCH ×2 (08:13→20:44)
[2019-04-26] MEDS: SENNOSIDES 8.6 MG (SENOKOT) TAB PO SCH ×2 (08:13→20:52)
[2019-04-26] MEDS: APIXABAN 5 MG (ELIQUIS) TABLET PO SCH ×2 (08:13→20:43)
[2019-04-26] MEDS: PANTOPRAZOLE 40 MG (PROTONIX) TAB PO SCH (08:13)
[2019-04-26] MEDS: FENOFIBRATE 134 MG (LOFIBRA) CAPSULE PO SCH (08:25)
--- NOTE | 2019-04-26 08:49 | Cardiology Progress Note ---
Subjective Date Seen by Provider: Apr 26, 2019 Time Seen by Provider: 08:47 Subjective/Events-last exam Patient is sitting up in bed, reporting improvement of dyspnea. Denies any chest pain. Review of Systems General: No Chills, No Night Sweats; Fatigue; No Malaise, No Appetite, No Other HEENT: No Head Aches, No Visual Changes, No Eye Pain, No Ear Pain, No Dysphasia , No Sinus Congestion, No Post Nasal Drip, No Sore Throat, No Other Pulmonary: Dyspnea; No Cough, No Pleuritic Chest Pain, No Other Cardiovascular: No: Chest Pain, Palpitations, Orthopnea, Paroxysmal Noc. Dyspnea, Edema, Lt Headedness, Other Objective-Cardiology Exam Last Set of Vital Signs Vital Signs 04/25/19 04/26/19 23:32 04:00 Temp 36.7 Pulse 82 Resp 18 B/P (MAP) 147/62 (90) Pulse Ox 95 O2 Delivery NIV Bilevel O2 Flow Rate 50.00 FiO2 95 Capillary Refill : Less Than 3 Seconds I&O Intake and Output 04/26/19 00:00 Intake Total 3540 ml Output Total 7275 ml Balance -3735 ml Intake Oral 2540 ml IV Total 1000 ml Output Urine Total 7275 ml # Bowel Movements 1 General: Alert, Oriented X3 HEENT: Atraumatic Lungs: Other (expiratory wheezes to bilat upper lobes) Heart: Normal S1, Normal S2, Other (irregular, multiple PVCs and PACs) Extremities: No Clubbing, No Cyanosis Results Lab Laboratory Tests 04/26/19 06:10 A/P-Cardiology Admission Diagnosis Acute resp failure UTI HTN HLD Assessment/Plan Status post respiratory failure, compensated respiratory acidosis, Improving, Managed by Dr. Abraham UTI, leukocytosis, Gram negative Bacilli isolated, Receiving Ceftriaxone, managed by Primary care team HTN, mildly elevated today, continue to monitor CAD w/ 2 stents -Cardiac Cath in 2016 showed Mild to moderate CAD, nonobstructive, disease with patent stents in the right coronary artery & Mildly elevated LVEDP. Echocardiogram () showed normal LV size and function with ejection fraction 50-55 percent. Pulmonary hypertension with PA pressure 45-50 mmHg. COPD & OHS, followed and managed by Dr. Abraham Insulin Dependent DMII-Managed by Primary Care team Hyperlipidemia, LDL 57, controlled on current medications Hypothyroidism GERD Patient was seen and evaluated with Nora, examination performed, management plan was discussed, agree with the current scribed note, I made few changes to the note using Italic font feeling better, breathing better continue on current medication and monitor Clinical Quality Measures DVT/VTE Risk/Contraindication: Risk Factor Score Per Nursin RFS Level Per Nursing on Admit: 4+=Very High Contraindications-Mechi: Other *list below* Other: possible DVT NORA JANG Apr 26, 2019 08:49 BELLE VERA MD Apr 26, 2019 09:06
[2019-04-26] MEDS: guaiFENesin SYRUP 100 MG/5 ML 10 ML (ROBITUSSIN SF) PO PRN ×2 (09:29→23:28)
--- NOTE | 2019-04-26 09:29 | Occupational Ther Daily Note ---
OT Current Status-Daily Note Subjective Pt laying in bed at start of session, stating she was waiting on a breathing tx from RT. Pt agreed to OT tx with focus on ADLs. Mental Status/Objective Attachments: Oxygen (5L) ADL-Treatment Therapy Code Descriptions/Definitions Functional [place] Measure: 0=Not Assessed/NA 4=Minimal Assistance 1=Total Assistance 5=Supervision or Setup 2=Maximal Assistance 6=Modified [place] 3=Moderate Assistance 7=Complete IndependenceSCALE: Activities may be completed with or without assistive devices. 1-Iagzbrqnec-obcgenj completes the activity by him/herself with no assistance from a helper. 5-Set-up or Clean-up Assistance-helper sets up or cleans up; patient completes activity. [place] assists only prior to or following the activity. 4-Supervision or Touching Assistance-helper provides verbal cues and/or touching/steadying and/or contact guard assistance as patient completes activity. Assistance may be provided throughout the activity or intermittently. 3-Partial/Moderate Assistance-helper does LESS THAN HALF the effort. [place] lifts, holds or supports trunk or limbs, but provides less than half the effort. 2-Substantial/Maximal Assistance-helper does MORE THAN HALF the effort. [place] lifts or holds trunk or limbs and provides more than half the effort. 8-Lnctzmzso-hvbapo does ALL the effort. Patient does none of the effort to complete the activity. Or, the assistance of 2 or more helpers is required for the patient to complete the activity. If activity was not attempted, code reason: 7-Patient Refused. 9-Not Applicable-not attempted and the patient did not perform the activity before the current illness, exacerbation or injury. 10-Not Attempted due to Environmental Limitations-(lack of equipment, weather restraints, etc.). 88-Not Attempted due to Medical Conditions or Safety Concerns. Oral Hygiene (QC): 5 (setup/clean up at bed level. ) Other Treatment Pt seated upright in bed, agreed to washing her face, brushing her teeth, shaving her face, and combing her hair. Pt was able to complete all tasks with set up and clean up assistance at tray table. Post OT session, pt laying in bed, call light in reach and all needs met with nursing present. Education OT Patient Education: Correct positioning, Energy conservation, Modified ADL techniques, Progress toward Goal/Update tx plan, Purpose of tx/functional activities Teaching Recipient: Patient Teaching Methods: Demonstration, Discussion Response to Teaching: Verbalize Understanding, Return Demonstration OT Short Term Goals Short Term Goals Time Frame: Apr 30, 2019 Eatin Oral hygiene: 5 Toileting hygiene: 3 (Mod assist with AE) Putting on/taking off footwear: 3 (Mod assist with AE) OT Roll Handler Goals Roll Handler Goals Time Frame: May 07, 2019 Eating (QC): 6 Oral Hygiene (QC): 6 Toileting Hygiene (QC): 4 (SBA with AE) On/Off Footwear (QC): 4 (SBA with AE) Additional Goals: 1-Demonstrate ADL Tasks, 2-Verbalize Understanding, 3- ImproveStrength/Ron 1=Demonstrate adherence to instructed precautions during ADL tasks. 2=Patient will verbalize/demonstrate understanding of assistive devices/modifications for ADL. 3=Patient will improve strength/tolerance for activity to enable patient to perform ADL's. OT Education/Plan Problem List/Assessment Assessment: Decreased Activ Tolerance, Decreased UE Strength, Impaired I ADL's, Impaired Self-Care Skills Discharge Recommendations Plan/Recommendations: Continue POC Treatment Plan/Plan of Care Patient would benefit from OT for education, treatment and training to promote independence in ADL's, mobility, safety and/or upper extremity function for ADL's. Plan of Care: ADL Retraining, Functional Mobility, UE Funct Exercise/Act Treatment Duration: May 07, 2019 Frequency: 5 times per week Estimated Hrs Per Day: .25 hour per day Agreement: Yes Rehab Potential: Fair Time/GCodes Start Time: 08:23 Stop Time: 08:50 Total Time Billed (hr/min): 27 Billed Treatment Time 1, ADL 2 AMY MENESES OT Apr 26, 2019 09:29
--- NOTE | 2019-04-26 10:23 | Progress Note - Hospitalist ---
Subjective HPI/CC On Admission Date Seen by Provider: Apr 26, 2019 Time Seen by Provider: 09:30 CC: Respiratory distress HPI: This is a 64yoWF clinic patient of Dr Styles and Dr Garcia who has h/o CAD s/p 2 stents and morbid obesity who wears O2 at night who presented to the ICU at [facility] from [facility] due to cough and dyspnea for the past few days with low grade subjective fever. CXR was negative at [facility] and wbc was 12k so I was called and I requested further w/u and I assessed her to need specialty care of Pulmo and Cards so arrangements were made to move to [facility] for higher level of care. Influenza was negative and Lactic acid was normal but d-dimer was elevated at 645 and ABG revealed hypoxemia at 67 and hypercapnia at 56 with pH 7.39 and BNP negative. Lovenox 120mg SQ was given one dose in [facility] ER. Samantha Abraham and Robert were both notified. Subjective/Events-last exam Pt may need swingbed Not an inpatient rehab candidate Lasix is given twice daily with good urinary output Mack remains in due to the significant output due to Lasix Feels like she is doing better Review of Systems Pulmonary: Dyspnea Cardiovascular: Edema Objective Exam Vital Signs Vital Signs Date Time Temp Pulse Resp B/P (MAP) Pulse Ox O2 Delivery O2 Flow Rate FiO2 04/26/19 19:29 36.4 93 24 126/65 (85) 93 Nasal Cannula 4.00 04/25/19 23:32 95 Capillary Refill : Less Than 3 Seconds General Appearance: No Apparent Distress, WD/WN, Chronically ill, Obese Respiratory: No Accessory Muscle Use, No Respiratory Distress, Decreased Breath Sounds Cardiovascular: Regular Rate, Rhythm Extremity: Pedal Edema Neurologic/Psychiatric: Alert, Oriented x3 Results/Procedures Lab Laboratory Tests 04/26/19 06:10 Patient resulted labs reviewed. Assessment/Plan Assessment and Plan Assess & Plan/Chief Complaint Assessment: Respiratory distress Elevated d-dimer with suspicion for PE placed on Lovenox therapeutic dose the OAC Hypoxemia Hypercapnia Obesity hypoventilation syndrome CAD stents x 2 Dr Garcia HTN HLP DM insulin dependent Hypothyroidism GERD Plan: [place] OAC Nebs Mat protocol SSI A Cardiology and Pulmonology appreciated Diagnosis/Problems Diagnosis/Problems (1) Respiratory insufficiency (2) Hypoxemia (3) Hypercapnia (4) GERD (gastroesophageal reflux disease) (5) Obesities, morbid (6) Obesity hypoventilation syndrome (7) Elevated d-dimer Clinical Quality Measures DVT/VTE Risk/Contraindication: Risk Factor Score Per Nursin RFS Level Per Nursing on Admit: 4+=Very High Contraindications-Mechi: Other *list below* Other: possible DVT EDEL BLISS DO Apr 26, 2019 10:23
--- NOTE | 2019-04-26 10:25 | Physical Therapy Daily Note ---
PT Daily Note-Current Subjective Patient in recliner pre tx, she states she just got into the recliner before PT got there. No pain at rest, agrees to PT. Appearance Patient in recliner post tx with nurse call, phone, tray, all needs met. Mental Status Patient Orientation: Person, Place, Situation Attachments: Oxygen, Mack Catheter Transfers SCALE: Activities may be completed with or without assistive devices. 2-Vnaquycrrs-uilhssz completes the activity by him/herself with no assistance f rom a helper. 5-Set-up or Clean-up Assistance-helper sets up or cleans up; patient completes activity. [place] assists only prior to or following the activity. 4-Supervision or Touching Assistance-helper provides verbal cues and/or touching/steadying and/or contact guard assistance as patient completes activity. Assistance may be provided throughout the activity or intermittently. 3-Partial/Moderate Assistance-helper does LESS THAN HALF the effort. [place] lifts, holds or supports trunk or limbs, but provides less than half the effort. 2-Substantial/Maximal Assistance-helper does MORE THAN HALF the effort. [place] lifts or holds trunk or limbs and provides more than half the effort. 5-Zthzpucnq-vbpbdx does ALL the effort. Patient does none of the effort to complete the activity. Or, the assistance of 2 or more helpers is required for the patient to complete the activity. If activity was not attempted, code reason: 7-Patient Refused. 9-Not Applicable-not attempted and the patient did not perform the activity before the current illness, exacerbation or injury. 10-Not Attempted due to Environmental Limitations-(lack of equipment, weather restraints, etc.). 88-Not Attempted due to Medical Conditions or Safety Concerns. Sit to Stand (QC): 3 Patient stood from the recliner with cues for hand placement with min assist, was able to stand only for about 20 seconds before needing to sit. Exercises Supine Ex: Quad Set, Glut sets Supine Reps: 15 (performed in recliner with legs elevated) Seated Therapy Exercises: Ankle pumps, Long arc quads Seated Reps: 15 Treatments standing, LE exercise Assessment Current Status: Poor Progress patient fatigues very quickly, SOB with activity PT Longterm Goals Shipping Clerk Goals PT Shipping Clerk Goals Time Frame: Apr 30, 2019 Roll Left & Right (QC): 6 Sit to Lying (QC): 3 Lying-Sitting on Side/Bed(QC): 3 Sit to Stand (QC): 6 Chair/Szc-yr-Yudfi Xfer(QC): 6 Does the Patient Walk: Yes Walk 10 feet (QC): 6 Walk 50ft with 2 Turns (QC): 6 PT Plan Problem List Problem List: Activity Tolerance, Functional Strength, Safety, Balance, Gait, Transfer, Bed Mobility, ROM Treatment/Plan Treatment Plan: Continue Plan of Care Treatment Plan: Bed Mobility, Education, Functional Activity Ron, Functional Strength, Gait, Safety, Therapeutic Exercise, Transfers Treatment Duration: Apr 30, 2019 Frequency: 6 times per week Estimated Hrs Per Day: .25 hour per day Patient and/or Family Agrees t: Yes Safety Risks/Education Patient Education: Correct Positioning, Safety Issues Teaching Recipient: Patient Teaching Methods: Demonstration, Discussion Response to Teaching: Reinforcement Needed Time/GCodes Time In: 1009 Time Out: 1019 Total Billed Treatment Time: 10 Total Billed Treatment 1 visit EX 10' CHARISMA TINAJERO PT Apr 26, 2019 10:25
--- NOTE | 2019-04-26 11:19 | Pulmonary Progress Note ---
Subjective Time Seen by a Provider: 11:16 Subjective/Events-last exam no complications noted. Sepsis Event Evaluation Height, Weight, BMI Height: 5'5.00" Weight: 380lbs. 0.0oz. 172.180629ds; 77.57 BMI Method: Exam Exam Vital Signs Date Time Temp Pulse Resp B/P (MAP) Pulse Ox O2 Delivery O2 Flow Rate FiO2 04/26/19 10:40 95 Nasal Cannula 5.00 04/26/19 08:00 36.0 85 20 156/66 (96) 90 Nasal Cannula 4.00 04/26/19 04:00 36.7 82 18 147/62 (90) 95 NIV Bilevel 50.00 04/26/19 02:43 82 16 95 50.00 04/26/19 00:34 36.4 64 21 165/66 (99) 95 Nasal Cannula 4.00 04/25/19 23:43 80 15 95 50.00 04/25/19 23:32 Nasal Cannula 5.00 95 04/25/19 21:00 Nasal Cannula 5.00 04/25/19 20:35 36.6 71 22 168/74 (105) 95 Nasal Cannula 4.00 04/25/19 19:46 Nasal Cannula 5.00 92 04/25/19 16:18 36.5 57 22 167/85 (112) 92 Nasal Cannula 4.00 04/25/19 15:54 37.2 58 95 36 04/25/19 15:24 NIV Bilevel 50 04/25/19 14:14 Nasal Cannula 5.00 96 04/25/19 13:00 64 35 180/84 (116) 91 Vapotherm 30.00 50.00 04/25/19 12:00 NIV Bilevel 50 I & O 04/26/19 07:00 Intake Total 2640 ml Output Total 7427 ml Balance -4787 ml Height & Weight Height: 5'5.00" Weight: 380lbs. 0.0oz. 172.417334at; 77.57 BMI Method: General Appearance: No Apparent Distress, WD/WN, Chronically ill, Obese HEENT: Moist Mucous Membranes, Pharyngeal Erythema Neck: Non Tender, Supple Respiratory: Lungs Clear Cardiovascular: Regular Rate, Rhythm Capillary Refill: Less Than 3 Seconds Extremity: No Calf Tenderness, Pedal Edema (+2, improved from yesterday ) Neurologic/Psychiatric: Alert, Oriented x3, No Motor/Sensory Deficits, Normal Mood/Affect Skin: Normal Color, Warm/Dry Lymphatic: No Adenopathy Results Lab Laboratory Tests 04/25/19 03:40 04/26/19 06:10 Assessment/Plan Assessment/Plan Acute on chronic respiratory failure -noninvasive ventilation currently -[facility] [employer] has approved vent to mask. - Bilateral dopplers - negative -continue ELiquis -Dopplers of LE are negative for DVT -Will check V/Q scan -PT is too large for CT scanner. - C02 -- 57 - Echo results reviewed Morbid obesity with OHS -C02 on chem is 53 Pulmonary edema secondary to grade II diastolic dysfunction -Lasix per cardiology UTI -Rocephin COPD -Duonebs -Solumedrol -Oxygen CAD -Cardiology following -Hx of stent placement RUBENS RIVERA DO Apr 26, 2019 11:19
--- NOTE | 2019-04-26 15:33 | NUR ---
Swing Bed Note: Swing Bed was asked to look at patient to see if she met criteria for swing bed. She currently does meet criteria for swing bed for short term Physical et Occupational therapies with continued monitoring et weaning of oxygen (Debility, Cardiorespiratory Condition). Ultimate goal appears to be to return to home at her prior level of independent function. If doctor determines that swing bed is needed for this patient tomorrow then I will talk with her about her swing bed benefits then et she will likely swing tomorrow a.m.
[2019-04-26] MEDS: lisINopril 5 MG (PRINIVIL) TABLET PO SCH (17:49)
[2019-04-26] MEDS: MULTIVIT W/MINERALS TAB (THERAGRAN M) PO SCH (17:49)
[2019-04-26] MEDS: ASPIRIN E.C. 81 MG (ECOTRIN) TAB PO SCH (20:44)
[2019-04-26] MEDS: VICTOZA SC SCH (20:44)
[2019-04-26] MEDS ORDERED: WATER (STERILE) FOR INJECTION 10 ML ONE (22:44)
[2019-04-26] MEDS ORDERED: cefTRIAXone 1,000 MG IV (ROCEPHIN) VIAL ONE (22:44)
[2019-04-26] MEDS: cefTRIAXone FOR IV USE 1,000 MG in WATER (STERILE) FOR INJECTION 10 ML IV SCH (22:50)
[2019-04-27] MEDS: RT-ALBUTEROL/IPRATROPIUM 3 ML (DUONEB) VIAL INH SCH ×6 (01:37→23:54)
[2019-04-27 04:51] LABS: BASOPHILS % (AUTO) 0 % (0-10); EOSINOPHILS # (AUTO) 0.1 10^3/uL (0.0-0.3); EOSINOPHILS % (AUTO) 1 % (0-10); HEMATOCRIT 43 % (35-52); HEMOGLOBIN 12.9 G/DL (11.5-16.0); LYMPHOCYTES # (AUTO) 2.4 X 10^3 (1.0-4.0); LYMPHOCYTES % (AUTO) 13 % (12-44); MEAN CORPUSCULAR HEMOGLOBIN 29 PG (25-34); MEAN CORPUSCULAR HGB CONC 30 G/DL (32-36); MEAN CORPUSCULAR VOLUME 96 FL (80-99); MEAN PLATELET VOLUME 10.1 FL (7.4-10.4); MONOCYTES % (AUTO) 11 % (0-12); NEUTROPHILS # (AUTO) 14.1 X 10^3 (1.8-7.8); NEUTROPHILS % (AUTO) 76 % (42-75); PLATELET COUNT 352 10^3/uL (130-400); RED CELL DISTRIBUTION WIDTH 16.7 % (10.0-14.5); WHITE BLOOD COUNT 18.6 10^3/uL (4.3-11.0)
[2019-04-27 05:14] LABS: CALCIUM 9.3 MG/DL (8.5-10.1); CREATININE SERUM 1.32 MG/DL (0.60-1.30); MAGNESIUM 2.2 MG/DL (1.6-2.4); PHOSPHORUS 4.4 MG/DL (2.3-4.7); POTASSIUM 3.9 MMOL/L (3.6-5.0)
[2019-04-27] MEDS: inSUlin ASPART (NovoLOG) 1 UNIT/0.01 ML (CHARGE PER UNIT) SC SCH ×8 (05:17→21:20)
--- NOTE | 2019-04-27 06:36 | Pulmonary Progress Note ---
Subjective Time Seen by a Provider: 06:35 Subjective/Events-last exam Pt feels improved. NO complications noted. Sepsis Event Evaluation Height, Weight, BMI Height: 5'5.00" Weight: 380lbs. 0.0oz. 172.276381hp; 77.57 BMI Method: Exam Exam Vital Signs Date Time Temp Pulse Resp B/P (MAP) Pulse Ox O2 Delivery O2 Flow Rate FiO2 04/27/19 01:37 94 17 94 50.00 04/26/19 23:59 36.4 84 12 125/76 (92) 99 NIV Bilevel 50.00 04/26/19 20:45 Nasal Cannula 5.00 04/26/19 19:29 36.4 93 24 126/65 (85) 93 Nasal Cannula 4.00 04/26/19 19:01 92 Nasal Cannula 4.00 04/26/19 16:21 36.6 89 22 147/65 (92) 93 High Flow N/C 4.00 04/26/19 14:20 91 Nasal Cannula 4.00 04/26/19 12:00 36.0 82 18 135/62 (86) 92 Nasal Cannula 4.00 04/26/19 10:40 95 Nasal Cannula 5.00 04/26/19 09:00 Nasal Cannula 4.00 04/26/19 08:00 36.0 85 20 156/66 (96) 90 Nasal Cannula 4.00 I & O 04/27/19 07:00 Intake Total 1430 ml Output Total 3650 ml Balance -2220 ml Height & Weight Height: 5'5.00" Weight: 380lbs. 0.0oz. 172.013668aw; 77.57 BMI Method: General Appearance: No Apparent Distress, WD/WN, Chronically ill, Obese HEENT: Moist Mucous Membranes, Pharyngeal Erythema Neck: Non Tender, Supple Respiratory: No Accessory Muscle Use, No Respiratory Distress, Decreased Breath Sounds Cardiovascular: Regular Rate, Rhythm Capillary Refill: Less Than 3 Seconds Extremity: Pedal Edema Neurologic/Psychiatric: Alert, Oriented x3 Skin: Normal Color, Warm/Dry Lymphatic: No Adenopathy Results Lab Laboratory Tests 04/26/19 06:10 04/27/19 04:20 Assessment/Plan Assessment/Plan Acute on chronic respiratory failure -noninvasive ventilation currently -[facility] [employer] has approved vent to mask. - Bilateral dopplers - negative -continue ELiquis -Dopplers of LE are negative for DVT -Will check V/Q scan -PT is too large for CT scanner. - C02 -- 57 - Echo results reviewed Morbid obesity with OHS -C02 on chem is 53 Pulmonary edema secondary to grade II diastolic dysfunction -Lasix per cardiology UTI -Rocephin COPD -Duonebs -Solumedrol -Oxygen CAD -Cardiology following -Hx of stent placement IDDM RUBENS TRUJILLO DO Apr 27, 2019 06:36
[2019-04-27] MEDS: LEVOTHYROXINE 75 MCG (LEVOTHROID) TABLET PO SCH (07:02)
[2019-04-27] MEDS: LEVOTHYROXINE 100 MCG (LEVOTHROID) TAB PO SCH (07:02)
[2019-04-27] MEDS: FUROSEMIDE 40 MG/4 ML INJ (LASIX) IVP SCH ×2 (07:02→18:23)
[2019-04-27 08:00] VITALS: BP 146/63
[2019-04-27] MEDS: SENNOSIDES 8.6 MG (SENOKOT) TAB PO SCH ×2 (08:10→21:53)
[2019-04-27] MEDS: OMEGA 3 (FISH OIL) 1000 MG CAP PO SCH ×2 (08:10→18:23)
[2019-04-27] MEDS: guaiFENesin SYRUP 100 MG/5 ML 10 ML (ROBITUSSIN SF) PO PRN (08:10)
[2019-04-27] MEDS: APIXABAN 5 MG (ELIQUIS) TABLET PO SCH ×2 (08:11→21:45)
[2019-04-27] MEDS: DOCUSATE SODIUM 100 MG (COLACE) CAP PO SCH ×2 (08:11→21:52)
[2019-04-27] MEDS: meTOprolol TARTRATE 25 MG (LOPRESSOR) TABLET PO SCH ×2 (08:11→21:45)
[2019-04-27] MEDS: ACETAMINOPHEN 325 MG TABLET PO PRN (08:11)
[2019-04-27] MEDS: FENOFIBRATE 134 MG (LOFIBRA) CAPSULE PO SCH (08:11)
[2019-04-27] MEDS: PANTOPRAZOLE 40 MG (PROTONIX) TAB PO SCH (08:11)
[2019-04-27] MEDS: glipiZIDE XL 10 MG (GLUCOTROL XL) TAB PO SCH (08:15)
--- NOTE | 2019-04-27 08:30 | Cardiology Progress Note ---
Subjective Date Seen by Provider: Apr 27, 2019 Time Seen by Provider: 08:14 Subjective/Events-last exam Pt lying down in bed comfortably. States she is feeling very well. Denies any chest pain or other cardiac sx. Does not report any other sx at this time. Review of Systems General: No Chills, No Fatigue Pulmonary: No Dyspnea, No Cough Cardiovascular: No: Chest Pain, Palpitations, Edema Gastrointestinal: No: Nausea, Vomiting Objective-Cardiology Exam Last Set of Vital Signs Vital Signs 04/25/19 04/27/19 04/27/19 23:32 08:00 09:00 Temp 36.5 Pulse 87 Resp 20 B/P (MAP) 146/63 (90) Pulse Ox 92 O2 Delivery Nasal Cannula O2 Flow Rate 4.00 FiO2 95 Capillary Refill : Less Than 3 Seconds I&O Intake and Output 04/27/19 00:00 Intake Total 1630 ml Output Total 4102 ml Balance -2472 ml Intake Oral 1620 ml IV Total 10 ml Output Urine Total 4102 ml # Voids 3 General: Alert, Oriented X3 HEENT: Atraumatic Lungs: Other (no accessory muscle use, decreased breath sounds, no wheezes were detected) Heart: Normal S1, Normal S2, Other (irregular, not on potline monitor,) Extremities: No Clubbing, No Cyanosis, No Edema Results Lab Laboratory Tests 04/27/19 04:20 A/P-Cardiology Admission Diagnosis Acute resp failure UTI HTN HLD Assessment/Plan Status post respiratory failure, continues to improve Managed by Dr. Abraham UTI, Gram negative Bacilli were isolated, a course of Ceftriaxone was completed yesterday, however pt has persistent leukocytosis, no ABX currently ordered, managed by Primary care team HTN, mildly elevated today, will recheck after morning meds are give, continue to monitor CAD w/ 2 stents -Cardiac Cath in 2016 showed Mild to moderate CAD, nonobstructive, disease with patent stents in the right coronary artery & Mildly elevated LVEDP. Echocardiogram () showed normal LV size and function with ejection fraction 50-55 percent. Pulmonary hypertension with PA pressure 45-50 mmHg. COPD & OHS, followed and managed by Dr. Abraham Insulin Dependent DMII-Managed by Primary Care team Hyperlipidemia, LDL 57, controlled on current medications Hypothyroidism, receiving Levothyroxine, Managed by primary care team GERD Clinical Quality Measures DVT/VTE Risk/Contraindication: Risk Factor Score Per Nursin RFS Level Per Nursing on Admit: 4+=Very High Contraindications-Mechi: Other *list below* Other: possible DVT Supervisory-Addendum Brief Verification & Attestation Participated in pt care: history, MDM, physical Personally performed: exam, history, MDM, supervision of care Care discussed with: Medical Student Procedures: n/a Results interpretation: Verified all documentation Verification and Attestation of Medical Student E/M Service A medical student performed and documented this service in my presence. I reviewed and verified all information documented by the medical student and made modifications to such information, when appropriate. I personally performed the physical exam and medical decision making. Patient is laying down in bed, feeling better. No new complaint Continue on current medication. Continue diuretics Belle Garcia, Apr 27, 2019,09:48 [facility] Apr 27, 2019 08:30 BELLE GARCIA MD Apr 27, 2019 09:48
--- NOTE | 2019-04-27 11:12 | Progress Note - Hospitalist ---
Subjective HPI/CC On Admission Date Seen by Provider: Apr 27, 2019 Time Seen by Provider: 10:30 CC: Respiratory distress HPI: This is a 64yoWF clinic patient of Dr Styles and Dr Garcia who has h/o CAD s/p 2 stents and morbid obesity who wears O2 at night who presented to the ICU at [facility] [place] [facility] [place] to cough and dyspnea for the past few days with low grade subjective fever. CXR was negative at [facility] and wbc was 12k so I was called and I requested further w/u and I assessed her to need specialty care of Pulmo and Cards so arrangements were made to move to [facility] for higher level of care. Influenza was negative and Lactic acid was normal but d-dimer was elevated at 645 and ABG revealed hypoxemia at 67 and hypercapnia at 56 with pH 7.39 and BNP negative. Lovenox 120mg SQ was given one dose in [facility] [place]. Samantha Abraham and Robert were both notified. Subjective/Events-last exam Pt doing much better. May need a swing bed. Bowels are moving. Mack maintained for severe diuresis and urinary output. Unsure where the endpoint is her due to the severe morbid obesity. Review of Systems Pulmonary: Dyspnea, Cough Objective Exam Vital Signs Vital Signs Date Time Temp Pulse Resp B/P (MAP) Pulse Ox O2 Delivery O2 Flow Rate FiO2 04/27/19 14:52 92 High Flow N/C 4.00 04/27/19 08:00 36.5 87 20 146/63 (90) 04/25/19 23:32 95 Capillary Refill : Less Than 3 Seconds General Appearance: No Apparent Distress, WD/WN, Chronically ill, Obese Respiratory: Chest Non Tender, Lungs Clear, No Accessory Muscle Use, No Respiratory Distress, Decreased Breath Sounds Cardiovascular: Regular Rate, Rhythm Extremity: Pedal Edema Neurologic/Psychiatric: Alert, Oriented x3, No Motor/Sensory Deficits, Normal Mood/Affect Results/Procedures Lab Laboratory Tests 04/27/19 04:20 Patient resulted labs reviewed. Assessment/Plan Assessment and Plan Assess & Plan/Chief Complaint Assessment: Respiratory distress Elevated d-dimer with suspicion for PE placed on Lovenox therapeutic dose the OAC Hypoxemia Hypercapnia Obesity hypoventilation syndrome CAD stents x 2 Dr Garcia HTN HLP DM insulin dependent Hypothyroidism GERD Plan: NC OAC Nebs Mat protocol SSI A Cardiology and Pulmonology appreciated Diuresis Diagnosis/Problems Diagnosis/Problems (1) Respiratory insufficiency (2) Hypoxemia (3) Hypercapnia (4) GERD (gastroesophageal reflux disease) (5) Obesities, morbid (6) Obesity hypoventilation syndrome (7) Elevated d-dimer Clinical Quality Measures DVT/VTE Risk/Contraindication: Risk Factor Score Per Nursin RFS Level Per Nursing on Admit: 4+=Very High Contraindications-Mechi: Other *list below* Other: possible DVT EDEL BLISS DO Apr 27, 2019 11:12
--- NOTE | 2019-04-27 11:46 | Physical Therapy Daily Note ---
PT Daily Note-Current Subjective Patient agreeable to therapy at this time. Appearance Patient in recliner with feet up, call light and bedside table within reach. Mental Status Patient Orientation: Normal For Age Attachments: Oxygen Transfers SCALE: Activities may be completed with or without assistive devices. 0-Btfhhyscjr-bjeigei completes the activity by him/herself with no assistance from a helper. 5-Set-up or Clean-up Assistance-helper sets up or cleans up; patient completes activity. [place] assists only prior to or following the activity. 4-Supervision or Touching Assistance-helper provides verbal cues and/or touching/steadying and/or contact guard assistance as patient completes activity. Assistance may be provided throughout the activity or intermittently. 3-Partial/Moderate Assistance-helper does LESS THAN HALF the effort. [place] lifts, holds or supports trunk or limbs, but provides less than half the effort. 2-Substantial/Maximal Assistance-helper does MORE THAN HALF the effort. [place] lifts or holds trunk or limbs and provides more than half the effort. 8-Eodehkpku-vkwntp does ALL the effort. Patient does none of the effort to complete the activity. Or, the assistance of 2 or more helpers is required for the patient to complete the activity. If activity was not attempted, code reason: 7-Patient Refused. 9-Not Applicable-not attempted and the patient did not perform the activity before the current illness, exacerbation or injury. 10-Not Attempted due to Environmental Limitations-(lack of equipment, weather restraints, etc.). 88-Not Attempted due to Medical Conditions or Safety Concerns. Roll Left & Right (QC): 6 Lying to Sitting/Side of Bed(Q: 6 Sit to Stand (QC): 4 Chair/Lfx-aw-Ozwjz Xfer(QC): 4 Gait Training Does the Patient Walk?: No and Walking Goal IS indicated Wheelchair Training Does the Pt Use a Wheelchair?: No Exercises Seated Therapy Exercises: Ankle pumps (20BLE), Long arc quads (15BLE) Treatments BLE Exercises. Transfers. Bed mobility. Assessment Patient was able to IND move in bed. Patient transferred to recliner using walker and was SOB after transfer. But after quick rest was able to catch her breath. PT Transformer Stock Clerk Goals Intermediate Goals PT Transformer Stock Clerk Goals Time Frame: Apr 30, 2019 Roll Left & Right (QC): 6 Sit to Lying (QC): 3 Lying-Sitting on Side/Bed(QC): 3 Sit to Stand (QC): 6 Chair/Dcg-sk-Hvixo Xfer(QC): 6 Does the Patient Walk: Yes Walk 10 feet (QC): 6 Walk 50ft with 2 Turns (QC): 6 PT Plan Problem List Problem List: Activity Tolerance, Functional Strength, Safety, Balance, Gait, Transfer, Bed Mobility Treatment/Plan Treatment Plan: Continue Plan of Care Treatment Plan: Bed Mobility, Education, Functional Activity Ron, Functional Strength, Gait, Safety, Therapeutic Exercise, Transfers Treatment Duration: Apr 30, 2019 Frequency: 6 times per week Estimated Hrs Per Day: .25 hour per day Patient and/or Family Agrees t: Yes Safety Risks/Education Patient Education: Transfer Techniques Teaching Recipient: Patient Teaching Methods: Discussion Response to Teaching: Reinforcement Needed Time/GCodes Time In: 1130 Time Out: 1138 Total Billed Treatment Time: 8 Total Billed Treatment 1 visit FA 8 SIL HENRIQUEZ PT Apr 27, 2019 11:46
[2019-04-27] MEDS ORDERED: guaiFENesin (MUCINEX) 600 MG TAB PO PRN (13:15)
--- NOTE | 2019-04-27 13:54 | NUR ---
"RD ASSESSMENT PMHx: CAD; COPD; hypercholesterolemia; HTN; DM; GERD PT INTERACTION: Pt was awake and pleasant during nutrition assessment for LOS. Pt states current appetite is pretty good and it was the same prior to admit. Note avg PO intake of 100% x3d, per chart review. Pt states trying to follow low-CHO, low-fat, no-salt diet at home, and has some difficulty chewing d/t poor teeth. Pt states no recent issues with n/v/c/d at this time. Note last BM was 04/25 and pt current on bowel regimen of senna BID; and colace BID, per chart review. Pt states she has probably gained wt recently. Note recent 18# wt loss x5d, per chart review. This wt loss is d/t fluid loss, per chart review. ABNORMAL NUTRITION-RELATED LAB VALUES LOW: Cl 91 HIGH: BUN 44; cr 1.32; glu 132 Est. kcal needs: 1836-8879 kcal | 25-30 kcal/kg IBW, based on IBW of 52.7 kg Est. Pro needs: 53-63 g Pro | 1.0-1.2 g Pro/kg IBW, based on IBW of 52.7 kg PES STATEMENT: Obese, class III (NC-3.3.5) related to food- and nutrition-related knowledge deficit | physical inactivity | excessive energy intake as evidenced by pt interview | BMI 74.5 INTERVENTION: Continue with current diet order of CHO 60g/m 1snack diet. Pt had questions regarding food intake in regards to sodium intake. Discussed briefly with pt sodium's role in fluid retention and weight gain. Provided examples of reducing sodium intake, such as rinsing canned vegetables before preparing them. Pt stated her prepares most of the meals and has eliminated salt from the foods he prepares. Discussed with pt briefly about portion control and fiber intake (mainly fiber's role in satiety). Will continue to follow and reassess as pt needs and status change. MONITOR/EVALUATE: PO Intake; Plan of Care; Hydration Status; Weight Status; Lab Values Nikolay Godoy, MS, RD, LD"
--- NOTE | 2019-04-27 15:07 | Occupational Ther Daily Note ---
OT Current Status-Daily Note Subjective Pt sitting in chair, agrees to treatment. No c/o pain. Mental Status/Objective Attachments: Mack Catheter, Oxygen ADL-Treatment Pt requested to complete grooming tasks. Pt brushed hair, washed face, and combed hair with set up and increased time. Nurse aide present and assisted pt with hygiene. Changed hospital gown with assist. Pt sit to stand with max assist. Pt stood with min assist for balance while RN placed dressing on buttocks. Transfer to EOB with FWW with CGA and cues for safety. Assist to safely manage FWW. Pt dependent for sit to supine (assist x4). Pt total assist to scoot to HOB. Pt in bed with RN and nurse aide present after session. Therapy Code Descriptions/Definitions Functional Grace Measure: 0=Not Assessed/NA 4=Minimal Assistance 1=Total Assistance 5=Supervision or Setup 2=Maximal Assistance 6=Modified Grace 3=Moderate Assistance 7=Complete IndependenceSCALE: Activities may be completed with or without assistive devices. 0-Keejupkfnk-fnzkjlu completes the activity by him/herself with no assistance from a helper. 5-Set-up or Clean-up Assistance-helper sets up or cleans up; patient completes activity. [place] assists only prior to or following the activity. 4-Supervision or Touching Assistance-helper provides verbal cues and/or touching/steadying and/or contact guard assistance as patient completes activity. Assistance may be provided throughout the activity or intermittently. 3-Partial/Moderate Assistance-helper does LESS THAN HALF the effort. [place] lifts, holds or supports trunk or limbs, but provides less than half the effort. 2-Substantial/Maximal Assistance-helper does MORE THAN HALF the effort. [place] lifts or holds trunk or limbs and provides more than half the effort. 5-Wdljdxsqe-gnfcgv does ALL the effort. Patient does none of the effort to complete the activity. Or, the assistance of 2 or more helpers is required for the patient to complete the activity. If activity was not attempted, code reason: 7-Patient Refused. 9-Not Applicable-not attempted and the patient did not perform the activity before the current illness, exacerbation or injury. 10-Not Attempted due to Environmental Limitations-(lack of equipment, weather restraints, etc.). 88-Not Attempted due to Medical Conditions or Safety Concerns. Oral Hygiene (QC): 5 Other Treatment Pt completed bilateral UE exercises to increase strength needed for ADLs and tr ansfers. Pt completed 3 bilateral UE exercises x 10 reps each in all planes. Rest breaks between exercises. Cues for proper exercise technique and for breathing. OT Short Term Goals Short Term Goals Time Frame: Apr 30, 2019 Eatin Oral hygiene: 5 Toileting hygiene: 3 (Mod assist with AE) Putting on/taking off footwear: 3 (Mod assist with AE) OT Mcfp Goals Mcfp Goals Time Frame: May 07, 2019 Eating (QC): 6 Oral Hygiene (QC): 6 Toileting Hygiene (QC): 4 (SBA with AE) On/Off Footwear (QC): 4 (SBA with AE) Additional Goals: 1-Demonstrate ADL Tasks, 2-Verbalize Understanding, 3-ImproveStrength/Ron 1=Demonstrate adherence to instructed precautions during ADL tasks. 2=Patient will verbalize/demonstrate understanding of assistive devices/modifications for ADL. 3=Patient will improve strength/tolerance for activity to enable patient to perform ADL's. OT Education/Plan Discharge Recommendations Plan/Recommendations: Continue POC Treatment Plan/Plan of Care Patient would benefit from OT for education, treatment and training to promote independence in ADL's, mobility, safety and/or upper extremity function for ADL's. Plan of Care: ADL Retraining, Functional Mobility, UE Funct Exercise/Act Treatment Duration: May 07, 2019 Frequency: 5 times per week Estimated Hrs Per Day: .25 hour per day Agreement: Yes Rehab Potential: Fair Time/GCodes Start Time: 14:02 Stop Time: 14:32 Total Time Billed (hr/min): 30 Billed Treatment Time 1 visit, ADL(20minutes), EX(10minutes) MANPREET HODGE OT Apr 27, 2019 15:07
[2019-04-27 16:00] VITALS: BP 141/63
[2019-04-27] MEDS: MULTIVIT W/MINERALS TAB (THERAGRAN M) PO SCH (18:23)
[2019-04-27] MEDS: lisINopril 5 MG (PRINIVIL) TABLET PO SCH (18:23)
[2019-04-27] MEDS: ASPIRIN E.C. 81 MG (ECOTRIN) TAB PO SCH (21:45)
[2019-04-27] MEDS: MELATONIN 3 MG TABLET PO PRN (21:45)
[2019-04-27] MEDS: CHLORASEPTIC LOZENGE MM PRN (21:46)
[2019-04-27] MEDS: VICTOZA SC SCH (21:48)
[2019-04-27] MEDS: OXYMETAZOLINE (AFRIN) 0.05% NA 30 ML BTL NS PRN (21:54)
[2019-04-27 23:45] VITALS: BP 130/61
[2019-04-28] MEDS: RT-ALBUTEROL/IPRATROPIUM 3 ML (DUONEB) VIAL INH SCH ×6 (02:44→23:11)
[2019-04-28] MEDS: inSUlin ASPART (NovoLOG) 1 UNIT/0.01 ML (CHARGE PER UNIT) SC SCH ×8 (05:57→20:42)
[2019-04-28] MEDS: FUROSEMIDE 40 MG/4 ML INJ (LASIX) IVP SCH ×2 (06:21→17:19)
[2019-04-28] MEDS: LEVOTHYROXINE 100 MCG (LEVOTHROID) TAB PO SCH (06:21)
[2019-04-28] MEDS: LEVOTHYROXINE 75 MCG (LEVOTHROID) TABLET PO SCH (06:21)
[2019-04-28] MEDS: CHLORASEPTIC LOZENGE MM PRN ×2 (06:22→11:20)
--- NOTE | 2019-04-28 06:58 | Pulmonary Progress Note ---
Subjective Time Seen by a Provider: 06:56 Subjective/Events-last exam No complications noted Sepsis Event Evaluation Height, Weight, BMI Height: 5'5.00" Weight: 380lbs. 0.0oz. 172.272636ay; 77.57 BMI Method: Exam Exam Vital Signs Date Time Temp Pulse Resp B/P (MAP) Pulse Ox O2 Delivery O2 Flow Rate FiO2 04/28/19 02:41 90 21 94 50.00 04/27/19 23:51 62 16 96 50.00 04/27/19 23:45 36.7 65 20 130/61 (84) 93 High Flow N/C 4.00 04/27/19 21:00 Nasal Cannula 4.00 04/27/19 19:27 90 High Flow N/C 4.00 04/27/19 16:00 36.0 82 20 141/63 (89) 94 High Flow N/C 4.00 04/27/19 14:52 92 High Flow N/C 4.00 04/27/19 11:14 92 High Flow N/C 4.00 04/27/19 09:00 Nasal Cannula 4.00 04/27/19 08:00 36.5 87 20 146/63 (90) 92 High Flow N/C 4.00 04/27/19 06:59 94 High Flow N/C 4.00 I & O0 04/28/19 07:00 Intake Total 2290 ml Output Total 6650 ml Balance -4360 ml Height & Weight Height: 5'5.00" Weight: 380lbs. 0.0oz. 172.216275hh; 77.57 BMI Method: General Appearance: No Apparent Distress, WD/WN, Chronically ill, Obese HEENT: Moist Mucous Membranes, Pharyngeal Erythema Neck: Non Tender, Supple Respiratory: Lungs Clear Cardiovascular: Regular Rate, Rhythm Capillary Refill: Less Than 3 Seconds Extremity: No Calf Tenderness, Pedal Edema (+2, improved from yesterday ) Neurologic/Psychiatric: Alert, Oriented x3, No Motor/Sensory Deficits, Normal Mood/Affect Skin: Normal Color, Warm/Dry Lymphatic: No Adenopathy Results Lab Laboratory Tests 04/27/19 04:20 Assessment/Plan Assessment/Plan Acute on chronic respiratory failure -noninvasive ventilation currently -[facility] has approved vent to mask. - Bilateral dopplers - negative -continue ELiquis - C02 -- 57 - Echo results reviewed Morbid obesity with OHS -C02 on chem is 53 Pulmonary edema secondary to grade II diastolic dysfunction -Lasix per cardiology UTI -Rocephin COPD -Duonebs -Solumedrol -Oxygen CAD -Cardiology following -Hx of stent placement IDRUBENS ALEXANDER DO Apr 28, 2019 06:58
[2019-04-28 07:03] LABS: BASOPHILS % (AUTO) 0 % (0-10); EOSINOPHILS # (AUTO) 0.4 10^3/uL (0.0-0.3); EOSINOPHILS % (AUTO) 3 % (0-10); HEMATOCRIT 44 % (35-52); HEMOGLOBIN 13.1 G/DL (11.5-16.0); LYMPHOCYTES # (AUTO) 1.6 X 10^3 (1.0-4.0); LYMPHOCYTES % (AUTO) 12 % (12-44); MEAN CORPUSCULAR HEMOGLOBIN 29 PG (25-34); MEAN CORPUSCULAR HGB CONC 30 G/DL (32-36); MEAN CORPUSCULAR VOLUME 96 FL (80-99); MEAN PLATELET VOLUME 9.6 FL (7.4-10.4); MONOCYTES # (AUTO) 1.1 X 10^3 (0.0-1.0); MONOCYTES % (AUTO) 9 % (0-12); NEUTROPHILS % (AUTO) 76 % (42-75); PLATELET COUNT 313 10^3/uL (130-400); RED CELL DISTRIBUTION WIDTH 16.4 % (10.0-14.5); WHITE BLOOD COUNT 13.2 10^3/uL (4.3-11.0)
[2019-04-28 07:27] LABS: CALCIUM 9.2 MG/DL (8.5-10.1); CREATININE SERUM 1.11 MG/DL (0.60-1.30); MAGNESIUM 2.1 MG/DL (1.6-2.4); PHOSPHORUS 3.8 MG/DL (2.3-4.7)
[2019-04-28 08:00] VITALS: BP 164/73
--- NOTE | 2019-04-28 08:40 | Progress Note - Hospitalist ---
Subjective HPI/CC On Admission Date Seen by Provider: Apr 28, 2019 Time Seen by Provider: 09:59 CC: Respiratory distress HPI: This is a 64yoWF clinic patient of Dr Styles and Dr Garcia who has h/o CAD s/p 2 stents and morbid obesity who wears O2 at night who presented to the ICU at [facility] from [facility] due to cough and dyspnea for the past few days with low grade subjective fever. CXR was negative at [facility] and wbc was 12k so I was called and I requested further w/u and I assessed her to need specialty care of Pulmo and Cards so arrangements were made to move to [facility] for higher level of care. Influenza was negative and Lactic acid was normal but d-dimer was elevated at 645 and ABG revealed hypoxemia at 67 and hypercapnia at 56 with pH 7.39 and BNP negative. Lovenox 120mg SQ was given one dose in [facility] ER. Samantha Abraham and Robert were both notified. Subjective/Events-last exam Patient sitting up in chair alert oriented reporting she feels much better with significant decrease in edema. She denies shortness of breath and feels that she has gotten a lot of good information in regards to her diabetic care and is ready to make some permanent change to improve her health. Objective Exam Vital Signs Vital Signs Date Time Temp Pulse Resp B/P (MAP) Pulse Ox O2 Delivery O2 Flow Rate FiO2 04/28/19 08:00 36.0 68 20 164/73 (103) 92 High Flow N/C 4.00 04/25/19 23:32 95 Capillary Refill : Less Than 3 Seconds General Appearance: No Apparent Distress, Chronically ill, Obese Respiratory: Lungs Clear, Normal Breath Sounds, No Accessory Muscle Use, No Respiratory Distress, Other Cardiovascular: No Edema, No Gallop, No JVD, No Murmur, Normal Peripheral Pulses, Irregularly Irregular Gastrointestinal: Normal Bowel Sounds, No Organomegaly, No Pulsatile Mass, Non Tender, Soft Extremity: Normal Capillary Refill, Normal Inspection, Normal Range of Motion, Non Tender, No Calf Tenderness, No Pedal Edema Neurologic/Psychiatric: Other (Sedated) Skin: Normal Color, Warm/Dry Results/Procedures Lab Laboratory Tests 04/28/19 06:55 Patient resulted labs reviewed. Assessment/Plan Assessment and Plan Assess & Plan/Chief Complaint Acute on chronic respiratory failure Significantly improve this morning feeling much better reporting significant decrease in lower extremity edema and improvement in energy level off of oxygen during the day noninvasive ventilation at night. Continue current diuretic therapy. - Bilateral dopplers - negative -continue ELiquis -Dopplers of LE are negative for DVT -Will check V/Q scan -PT is too large for CT scanner. - C02 -- 57 - Echo results reviewed Morbid obesity with OHS -C02 on chem is 53 Pulmonary edema secondary to grade II diastolic dysfunction -Lasix per cardiology UTI -Rocephin COPD -Duonebs -Solumedrol -Oxygen CAD -Cardiology following -Hx of stent placement IDDM Clinical Quality Measures DVT/VTE Risk/Contraindication: Risk Factor Score Per Nursin RFS Level Per Nursing on Admit: 4+=Very High Contraindications-Mechi: Other *list below* Other: possible DVT OMAR HURTADO MD Apr 28, 2019 08:40
[2019-04-28] MEDS: OMEGA 3 (FISH OIL) 1000 MG CAP PO SCH ×2 (08:56→15:50)
[2019-04-28] MEDS: meTOprolol TARTRATE 25 MG (LOPRESSOR) TABLET PO SCH ×2 (08:56→21:05)
[2019-04-28] MEDS: APIXABAN 5 MG (ELIQUIS) TABLET PO SCH ×2 (08:56→21:00)
[2019-04-28] MEDS: FENOFIBRATE 134 MG (LOFIBRA) CAPSULE PO SCH (08:56)
[2019-04-28] MEDS: PANTOPRAZOLE 40 MG (PROTONIX) TAB PO SCH (08:56)
[2019-04-28] MEDS: DOCUSATE SODIUM 100 MG (COLACE) CAP PO SCH ×2 (08:57→21:00)
[2019-04-28] MEDS: SENNOSIDES 8.6 MG (SENOKOT) TAB PO SCH ×2 (08:57→21:00)
[2019-04-28] MEDS: glipiZIDE XL 10 MG (GLUCOTROL XL) TAB PO SCH (09:01)
--- NOTE | 2019-04-28 10:45 | Cardiology Progress Note ---
Subjective Date Seen by Provider: Apr 28, 2019 Time Seen by Provider: 10:45 Subjective/Events-last exam Patient is sitting in a chair, feeling better reporting improvement. Review of Systems General: No Chills, No Night Sweats; Fatigue; No Malaise, No Appetite, No Other HEENT: No Head Aches, No Visual Changes, No Eye Pain, No Ear Pain, No Dysphasia, No Sinus Congestion, No Post Nasal Drip, No Sore Throat, No Other Pulmonary: Dyspnea; No Cough, No Pleuritic Chest Pain, No Other Cardiovascular: No: Chest Pain, Palpitations, Orthopnea, Paroxysmal Noc. Dyspnea, Edema, Lt Headedness, Other Objective-Cardiology Exam Last Set of Vital Signs Vital Signs 04/25/19 04/28/19 04/28/19 23:32 08:00 10:11 Temp 36.0 Pulse 68 Resp 20 B/P (MAP) 164/73 (103) Pulse Ox 90 O2 Delivery High Flow N/C O2 Flow Rate 4.00 FiO2 95 Capillary Refill : Less Than 3 Seconds I&O Intake and Output 04/28/19 00:00 Intake Total 2190 ml Output Total 6600 ml Balance -4410 ml Intake Oral 2190 ml Output Urine Total 6600 ml General: Alert, Oriented X3 HEENT: Atraumatic Lungs: Other (no accessory muscle use, decreased breath sounds, no wheezes were detected) Heart: Normal S1, Normal S2, Other (irregular, not on school lunch monitor,) Extremities: No Clubbing, No Cyanosis, No Edema Results Lab Laboratory Tests 04/28/19 06:55 A/P-Cardiology Admission Diagnosis Acute resp failure UTI HTN HLD Assessment/Plan Status post respiratory failure, feeling better, reporting improvement, managed by Dr. Abraham UTI, Gram negative Bacilli were isolated, a course of Ceftriaxone was completed yesterday, however pt has persistent leukocytosis, no ABX currently ordered, managed by Primary care team HTN, mildly elevated today, will recheck after morning meds are give, continue to monitor CAD w/ 2 stents -Cardiac Cath in 2015 showed Mild to moderate CAD, nonobstructive, disease with patent stents in the right coronary artery & Mildly elevated LVEDP. Echocardiogram () showed normal LV size and function with ejection fraction 50-55 percent. Pulmonary hypertension with PA pressure 45-50 mmHg. COPD & OHS, followed and managed by Dr. Abraham Insulin Dependent DMII-Managed by Primary Care team Hyperlipidemia, LDL 57, controlled on current medications Hypothyroidism, receiving Levothyroxine, Managed by primary care team GERD Clinical Quality Measures DVT/VTE Risk/Contraindication: Risk Factor Score Per Nursin RFS Level Per Nursing on Admit: 4+=Very High Contraindications-Mechi: Other *list below* Other: possible DVT BELLE VERA MD Apr 28, 2019 10:45
[2019-04-28] MEDS: ACETAMINOPHEN 325 MG TABLET PO PRN ×2 (13:34→23:50)
[2019-04-28] MEDS: MULTIVIT W/MINERALS TAB (THERAGRAN M) PO SCH (15:50)
[2019-04-28 16:44] VITALS: BP 152/65
[2019-04-28] MEDS: lisINopril 5 MG (PRINIVIL) TABLET PO SCH (17:19)
[2019-04-28] MEDS: VICTOZA SC SCH (21:01)
[2019-04-28] MEDS: ASPIRIN E.C. 81 MG (ECOTRIN) TAB PO SCH (21:02)
[2019-04-28] MEDS: OXYMETAZOLINE (AFRIN) 0.05% NA 30 ML BTL NS PRN (21:05)
[2019-04-28] MEDS: MELATONIN 3 MG TABLET PO PRN (21:05)
[2019-04-29] VITALS: BP 123/60
[2019-04-29] MEDS: RT-ALBUTEROL/IPRATROPIUM 3 ML (DUONEB) VIAL INH SCH ×6 (02:48→21:54)
[2019-04-29 05:17] LABS: BASOPHILS % (AUTO) 0 % (0-10); EOSINOPHILS # (AUTO) 0.4 10^3/uL (0.0-0.3); EOSINOPHILS % (AUTO) 3 % (0-10); HEMATOCRIT 42 % (35-52); HEMOGLOBIN 12.7 G/DL (11.5-16.0); LYMPHOCYTES # (AUTO) 1.7 X 10^3 (1.0-4.0); LYMPHOCYTES % (AUTO) 12 % (12-44); MEAN CORPUSCULAR HEMOGLOBIN 29 PG (25-34); MEAN CORPUSCULAR HGB CONC 30 G/DL (32-36); MEAN CORPUSCULAR VOLUME 96 FL (80-99); MONOCYTES % (AUTO) 7 % (0-12); NEUTROPHILS # (AUTO) 10.8 X 10^3 (1.8-7.8); NEUTROPHILS % (AUTO) 77 % (42-75); PLATELET COUNT 312 10^3/uL (130-400); RED CELL DISTRIBUTION WIDTH 16.2 % (10.0-14.5); WHITE BLOOD COUNT 13.9 10^3/uL (4.3-11.0)
[2019-04-29 05:30] LABS: CREATININE SERUM 1.07 MG/DL (0.60-1.30); MAGNESIUM 2.9 MG/DL (1.6-2.4); PHOSPHORUS 3.4 MG/DL (2.3-4.7); POTASSIUM 4.1 MMOL/L (3.6-5.0)
[2019-04-29] MEDS: inSUlin ASPART (NovoLOG) 1 UNIT/0.01 ML (CHARGE PER UNIT) SC SCH ×7 (06:03→21:20)
[2019-04-29] MEDS: LEVOTHYROXINE 100 MCG (LEVOTHROID) TAB PO SCH (06:32)
[2019-04-29] MEDS: FUROSEMIDE 40 MG/4 ML INJ (LASIX) IVP SCH ×2 (06:32→17:31)
[2019-04-29] MEDS: LEVOTHYROXINE 75 MCG (LEVOTHROID) TABLET PO SCH (06:32)
[2019-04-29 07:16] VITALS: BP 129/62
[2019-04-29] MEDS: glipiZIDE XL 10 MG (GLUCOTROL XL) TAB PO SCH (07:48)
[2019-04-29] MEDS: PANTOPRAZOLE 40 MG (PROTONIX) TAB PO SCH (07:49)
[2019-04-29] MEDS: FENOFIBRATE 134 MG (LOFIBRA) CAPSULE PO SCH (07:49)
[2019-04-29] MEDS: meTOprolol TARTRATE 25 MG (LOPRESSOR) TABLET PO SCH ×2 (07:49→21:12)
[2019-04-29] MEDS: OMEGA 3 (FISH OIL) 1000 MG CAP PO SCH ×2 (07:49→15:38)
[2019-04-29] MEDS: APIXABAN 5 MG (ELIQUIS) TABLET PO SCH ×2 (07:49→21:12)
[2019-04-29] MEDS: DOCUSATE SODIUM 100 MG (COLACE) CAP PO SCH ×2 (07:50→21:12)
[2019-04-29] MEDS: SENNOSIDES 8.6 MG (SENOKOT) TAB PO SCH ×2 (07:50→21:12)
--- NOTE | 2019-04-29 09:31 | Cardiology Progress Note ---
Subjective Date Seen by Provider: Apr 29, 2019 Time Seen by Provider: 09:30 Subjective/Events-last exam Patient is sitting in a chair, feeling better, reporting improvement in her symptoms Review of Systems General: No Chills, No Night Sweats; Fatigue; No Malaise, No Appetite, No Other HEENT: No Head Aches, No Visual Changes, No Eye Pain, No Ear Pain, No Dysphasia, No Sinus Congestion, No Post Nasal Drip, No Sore Throat, No Other Pulmonary: Dyspnea; No Cough, No Pleuritic Chest Pain, No Other Cardiovascular: Edema; No: Chest Pain, Palpitations, Orthopnea, Paroxysmal Noc. Dyspnea, Lt Headedness, Other Objective-Cardiology Exam Last Set of Vital Signs Vital Signs 04/25/19 04/29/19 23:32 07:16 Temp 37.0 Pulse 68 Resp 24 B/P (MAP) 129/62 (84) Pulse Ox 93 O2 Delivery Nasal Cannula O2 Flow Rate 4.00 FiO2 95 Capillary Refill : Less Than 3 SecondsLess Than 3 Seconds I&O Intake and Output 04/29/19 00:00 Intake Total 2590 ml Output Total 6750 ml Balance -4160 ml Intake Oral 2590 ml Output Urine Total 6750 ml General: Alert, Oriented X3 HEENT: Atraumatic Neck: Supple Lungs: Clear to Auscultation, Normal Air Movement Heart: Normal S1, Normal S2, Other (irregular, not on desk monitor,) Extremities: No Clubbing, No Cyanosis, Other (Edema is improving) Neuro: Normal Speech, Strength at 5/5 X4 Ext, Sensation Intact Psych/Mental Status: Mental Status NL, Mood NL Results Lab Laboratory Tests 04/29/19 04:52 A/P-Cardiology Admission Diagnosis Acute resp failure UTI HTN HLD Assessment/Plan Status post respiratory failure, feeling better, reporting improvement, managed by Dr. Abraham Peripheral edema, improving on Lasix. Continue to monitor UTI, Gram negative Bacilli were isolated, a course of Ceftriaxone was completed yesterday, however pt has persistent leukocytosis, no ABX currently ordered, managed by Primary care team HTN, mildly elevated today, will recheck after morning meds are give, continue to monitor CAD w/ 2 stents -Cardiac Cath in 2015 showed Mild to moderate CAD, nonobstructive, disease with patent stents in the right coronary artery & Mildly elevated LVEDP. Echocardiogram () showed normal LV size and function with ejection fraction 50-55 percent. Pulmonary hypertension with PA pressure 45-50 mmHg. COPD & OHS, followed and managed by Dr. Abraham Insulin Dependent DMII-Managed by Primary Care team Hyperlipidemia, LDL 57, controlled on current medications Hypothyroidism, receiving Levothyroxine, Managed by primary care team GERD Clinical Quality Measures DVT/VTE Risk/Contraindication: Risk Factor Score Per Nursin RFS Level Per Nursing on Admit: 4+=Very High Contraindications-Mechi: Other *list below* Other: possible DVT BELLE VERA MD Apr 29, 2019 09:31
[2019-04-29] MEDS: ACETAMINOPHEN 325 MG TABLET PO PRN (10:00)
--- NOTE | 2019-04-29 11:09 | Progress Note - Hospitalist ---
Subjective HPI/CC On Admission Date Seen by Provider: Apr 29, 2019 Time Seen by Provider: 11:06 CC: Respiratory distress HPI: This is a 64yoWF clinic patient of Dr Styles and Dr Garcia who has h/o CAD s/p 2 stents and morbid obesity who wears O2 at night who presented to the ICU at [facility] from [place] due to cough and dyspnea for the past few days with low grade subjective fever. CXR was negative at [place] and wbc was 12k so I was called and I requested further w/u and I assessed her to need specialty care of Pulmo and Cards so arrangements were made to move to [facility] for higher level of care. Influenza was negative and Lactic acid was normal but d-dimer was elevated at 645 and ABG revealed hypoxemia at 67 and hypercapnia at 56 with pH 7.39 and BNP negative. Lovenox 120mg SQ was given one dose in [place] ER. Samantha Abraham and Robert were both notified. Subjective/Events-last exam patient reports feeling well denies night sweats chills or fever or dysuria. She's been using her walker to get bathroom and voices no complaints. Objective Exam Vital Signs Vital Signs Date Time Temp Pulse Resp B/P (MAP) Pulse Ox O2 Delivery O2 Flow Rate FiO2 04/29/19 10:12 93 High Flow N/C 4.00 04/29/19 07:16 37.0 68 24 129/62 (84) 04/25/19 23:32 95 Capillary Refill : Less Than 3 SecondsLess Than 3 Seconds General Appearance: No Apparent Distress, Obese Respiratory: Chest Non Tender, Lungs Clear, Normal Breath Sounds, No Accessory Muscle Use, No Respiratory Distress Cardiovascular: No Gallop, No JVD, No Murmur Gastrointestinal: Normal Bowel Sounds Extremity: No Pedal Edema Results/Procedures Lab Laboratory Tests 04/29/19 04:52 Patient resulted labs reviewed. Assessment/Plan Assessment and Plan Assess & Plan/Chief Complaint Acute on chronic respiratory failure Significantly improve this morning feeling much better reporting significant decrease in lower extremity edema and improvement in energy level off of oxygen during the day noninvasive ventilation at night. Continue current diuretic therapy. - Bilateral dopplers - negative -continue ELiquis -Dopplers of LE are negative for DVT -Will check V/Q scan -PT is too large for CT scanner. - C02 -- 57 - Echo results reviewed Morbid obesity with OHS -C02 on chem is 53 Pulmonary edema secondary to grade II diastolic dysfunction -Lasix per cardiology UTI -Rocephin COPD -Duonebs -Solumedrol -Oxygen CAD -Cardiology following -Hx of stent placement IDDM under reasonable control will DC Mack today discharge per Dr. Abraham possibly the beginning of the week. hypermagnesemia mild will hold when necessary milk of magnesia and Mylanta orders although the patient as far as I can tell has not received any of this and is not on any other form of magnesium replacement with improving BUN/creatinine ratio continue to monitor. Persistent leukocytosis no evidence for infection continue to monitor with removal of Mack catheter. Clinical Quality Measures DVT/VTE Risk/Contraindication: Risk Factor Score Per Nursin RFS Level Per Nursing on Admit: 4+=Very High Contraindications-Mechi: Other *list below* Other: possible DVT OMAR HURTADO MD Apr 29, 2019 11:09
[2019-04-29] MEDS: CHLORASEPTIC LOZENGE MM PRN ×3 (12:18→23:03)
[2019-04-29] MEDS: MULTIVIT W/MINERALS TAB (THERAGRAN M) PO SCH (15:38)
[2019-04-29 16:16] VITALS: BP 143/65
[2019-04-29] MEDS: lisINopril 5 MG (PRINIVIL) TABLET PO SCH (17:31)
[2019-04-29] MEDS: ASPIRIN E.C. 81 MG (ECOTRIN) TAB PO SCH (21:12)
[2019-04-29] MEDS: VICTOZA SC SCH (21:15)
[2019-04-30] VITALS: BP 132/63
[2019-04-30] MEDS: RT-ALBUTEROL/IPRATROPIUM 3 ML (DUONEB) VIAL INH SCH ×6 (01:59→21:23)
[2019-04-30 04:50] LABS: HEMOGLOBIN 13.7 G/DL (11.5-16.0); MEAN PLATELET VOLUME 10.4 FL (7.4-10.4); WHITE BLOOD COUNT 16.5 10^3/uL (4.3-11.0)
[2019-04-30 05:16] LABS: ALBUMIN 3.5 GM/DL (3.2-4.5); BILIRUBIN,TOTAL 0.8 MG/DL (0.1-1.0); CALCIUM 9.3 MG/DL (8.5-10.1); CREATININE SERUM 1.21 MG/DL (0.60-1.30); MAGNESIUM 2.1 MG/DL (1.6-2.4); PHOSPHORUS 2.7 MG/DL (2.3-4.7); POTASSIUM 3.9 MMOL/L (3.6-5.0); TOTAL PROTEIN 6.6 GM/DL (6.4-8.2)
[2019-04-30] MEDS: inSUlin ASPART (NovoLOG) 1 UNIT/0.01 ML (CHARGE PER UNIT) SC SCH ×7 (06:02→21:41)
[2019-04-30] MEDS: LEVOTHYROXINE 75 MCG (LEVOTHROID) TABLET PO SCH (06:23)
[2019-04-30] MEDS: LEVOTHYROXINE 100 MCG (LEVOTHROID) TAB PO SCH (06:23)
[2019-04-30] MEDS: CHLORASEPTIC LOZENGE MM PRN ×2 (06:24→14:03)
[2019-04-30] MEDS: FUROSEMIDE 40 MG/4 ML INJ (LASIX) IVP SCH (06:24)
[2019-04-30 08:00] VITALS: BP 121/64
[2019-04-30] MEDS: glipiZIDE XL 10 MG (GLUCOTROL XL) TAB PO SCH (08:30)
[2019-04-30] MEDS: FENOFIBRATE 134 MG (LOFIBRA) CAPSULE PO SCH (08:30)
[2019-04-30] MEDS: APIXABAN 5 MG (ELIQUIS) TABLET PO SCH ×2 (08:30→21:40)
[2019-04-30] MEDS: DOCUSATE SODIUM 100 MG (COLACE) CAP PO SCH ×2 (08:30→21:39)
[2019-04-30] MEDS: SENNOSIDES 8.6 MG (SENOKOT) TAB PO SCH ×2 (08:30→21:39)
[2019-04-30] MEDS: OMEGA 3 (FISH OIL) 1000 MG CAP PO SCH ×2 (08:30→17:10)
[2019-04-30] MEDS: PANTOPRAZOLE 40 MG (PROTONIX) TAB PO SCH (08:30)
[2019-04-30] MEDS: meTOprolol TARTRATE 25 MG (LOPRESSOR) TABLET PO SCH ×2 (08:30→21:40)
--- NOTE | 2019-04-30 09:22 | Cardiology Progress Note ---
Subjective Date Seen by Provider: Apr 30, 2019 Time Seen by Provider: 09:20 Subjective/Events-last exam Patient is sitting up in bed, denies any chest pain. States dyspnea continues to improve. Review of Systems General: No Chills, No Night Sweats, No Fatigue, No Malaise, No Appetite, No Ot her HEENT: No Head Aches, No Visual Changes, No Eye Pain, No Ear Pain, No Dysp hasia, No Sinus Congestion, No Post Nasal Drip, No Sore Throat, No Other Pulmonary: No Dyspnea, No Cough, No Pleuritic Chest Pain, No Other Cardiovascular: No: Chest Pain, Palpitations, Orthopnea, Paroxysmal Noc. Dyspnea, Edema, Lt Headedness, Other Objective-Cardiology Exam Last Set of Vital Signs Vital Signs 04/25/19 04/30/19 23:32 08:00 Temp 36.1 Pulse 74 Resp 20 B/P (MAP) 121/64 (83) Pulse Ox 94 O2 Delivery Nasal Cannula O2 Flow Rate 4.00 FiO2 95 Capillary Refill : Less Than 3 SecondsLess Than 3 Seconds I&O Intake and Output 04/30/19 00:00 Intake Total 6181 ml Output Total 6150 ml Balance 31 ml Intake Oral 6181 ml Output Urine Total 6050 ml Post Void Residual 100 ml General: Alert, Oriented X3 HEENT: Atraumatic Neck: Supple Lungs: Clear to Auscultation, Normal Air Movement Heart: Regular Rate, Normal S1, Normal S2 Extremities: No Clubbing, No Cyanosis, Other (+1 edema BLE) Skin: No Breakdown Neuro: Normal Speech, Strength at 5/5 X4 Ext, Sensation Intact Psych/Mental Status: Mental Status NL, Mood NL Results Lab Laboratory Tests 04/30/19 04:20 A/P-Cardiology Admission Diagnosis Acute resp failure UTI HTN HLD Assessment/Plan Status post respiratory failure, feeling better, reporting improvement, managed by Dr. Abraham Peripheral edema, improving on Lasix. Continue to monitor UTI, Gram negative Bacilli were isolated, a course of Ceftriaxone was completed, having persistent leukocytosis, managed by Primary care team HTN, controlled, continue to monitor. CAD w/ 2 stents -Cardiac Cath in 2016 showed Mild to moderate CAD, nonobstructive, disease with patent stents in the right coronary artery & Mildly elevated LVEDP. Echocardiogram () showed normal LV size and function with ejection fraction 50-55 percent. Pulmonary hypertension with PA pressure 45-50 mmHg. COPD & OHS, followed and managed by Dr. Abraham Insulin Dependent DMII-Managed by Primary Care team Hyperlipidemia, LDL 57, controlled on current medications Hypothyroidism, receiving Levothyroxine, Managed by primary care team GERD Patient was seen and evaluated with Nora, examination performed, management plan was discussed, agree with the current scribed note, I made few changes to the note using Italic font Patient is laying down in bed, feeling better. Continue on current medication Responded well to diuretics and having significant improvement Continue with current treatment Clinical Quality Measures DVT/VTE Risk/Contraindication: Risk Factor Score Per Nursin RFS Level Per Nursing on Admit: 4+=Very High Contraindications-Mechi: Other *list below* Other: possible DVT NORA JANG Apr 30, 2019 09:22 BELLE VERA MD Apr 30, 2019 10:28
--- NOTE | 2019-04-30 10:58 | Physical Therapy Daily Note ---
PT Daily Note-Current Subjective Patient agreeable to perform exercises at this time but states she just got into bed and did not want to get out of bed at this time. Appearance Patient in bed with call light and bedside table within reach. Mental Status Patient Orientation: Normal For Age Attachments: Oxygen Transfers SCALE: Activities may be completed with or without assistive devices. 6-Ehgoqalymz-bzlkesr completes the activity by him/herself with no assistance from a helper. 5-Set-up or Clean-up Assistance-helper sets up or cleans up; patient completes activity. [place] assists only prior to or following the activity. 4-Supervision or Touching Assistance-helper provides verbal cues and/or touching/steadying and/or contact guard assistance as patient completes activity. Assistance may be provided throughout the activity or intermittently. 3-Partial/Moderate Assistance-helper does LESS THAN HALF the effort. [place] lifts, holds or supports trunk or limbs, but provides less than half the effort. 2-Substantial/Maximal Assistance-helper does MORE THAN HALF the effort. [place] lifts or holds trunk or limbs and provides more than half the effort. 0-Keejhitsz-mvnjjb does ALL the effort. Patient does none of the effort to complete the activity. Or, the assistance of 2 or more helpers is required for the patient to complete the activity. If activity was not attempted, code reason: 7-Patient Refused. 9-Not Applicable-not attempted and the patient did not perform the activity before the current illness, exacerbation or injury. 10-Not Attempted due to Environmental Limitations-(lack of equipment, weather restraints, etc.). 88-Not Attempted due to Medical Conditions or Safety Concerns. Gait Training Does the Patient Walk?: No and Walking Goal IS indicated Wheelchair Training Does the Pt Use a Wheelchair?: No Exercises Supine Ex: Ankle pumps (15BLE), Quad Set (10BLE), Glut sets (10), Heel Slides (10BLE), Straight leg raise (10BLE), Hip abd/add (10BLE) Treatments BLE exercises. Assessment Patient had a limited ROM on RLE compared to LLE due to pain and morbid obesity. PT Yarn Rewinder Goals Retirement Goals PT Yarn Rewinder Goals Time Frame: May 12, 2019 Roll Left & Right (QC): 6 Sit to Lying (QC): 3 Lying-Sitting on Side/Bed(QC): 3 Sit to Stand (QC): 6 Chair/Xzc-gz-Oaoqc Xfer(QC): 6 Does the Patient Walk: Yes Walk 10 feet (QC): 6 Walk 50ft with 2 Turns (QC): 6 PT Plan Problem List Problem List: Activity Tolerance, Functional Strength, Safety, Balance, Gait, Transfer, Bed Mobility, ROM Treatment/Plan Treatment Plan: Continue Plan of Care Treatment Plan: Bed Mobility, Education, Functional Activity Ron, Functional Strength, Gait, Safety, Therapeutic Exercise, Transfers Treatment Duration: May 12, 2019 Frequency: 6 times per week Estimated Hrs Per Day: .25 hour per day Patient and/or Family Agrees t: Yes Time/GCodes Time In: 935 Time Out: 945 Total Billed Treatment Time: 10 Total Billed Treatment 1 visit EX 10 SIL HENRIQUEZ PT Apr 30, 2019 10:58
--- NOTE | 2019-04-30 11:53 | Occupational Ther Daily Note ---
OT Current Status-Daily Note Subjective Pt alert, lying in bed. Pt states that she has done her LE exercises already today and nrsg scrubbed her down in the shower. She stated that the shower felt good. Pt agrees to UE exercises in bed. Mental Status/Objective Patient Orientation: Person, Place, Time, [place] Attachments: IV, Oxygen ADL-Treatment Therapy Code Descriptions/Definitions Functional [place] Measure: 0=Not Assessed/NA 4=Minimal Assistance 1=Total Assistance 5=Supervision or Setup 2=Maximal Assistance 6=Modified [place] 3=Moderate Assistance 7=Complete IndependenceSCALE: Activities may be completed with or without assistive devices. 6-Phxjkyadyx-ixqoyeo completes the activity by him/herself with no assistance from a helper. 5-Set-up or Clean-up Assistance-helper sets up or cleans up; patient completes activity. [place] assists only prior to or following the activity. 4-Supervision or Touching Assistance-helper provides verbal cues and/or touching/steadying and/or contact guard assistance as patient completes activity. Assistance may be provided throughout the activity or intermittently. 3-Partial/Moderate Assistance-helper does LESS THAN HALF the effort. [place] lifts, holds or supports trunk or limbs, but provides less than half the effort. 2-Substantial/Maximal Assistance-helper does MORE THAN HALF the effort. [place] lifts or holds trunk or limbs and provides more than half the effort. 5-Bltekzwnm-bakqhi does ALL the effort. Patient does none of the effort to complete the activity. Or, the assistance of 2 or more helpers is required for the patient to complete the activity. If activity was not attempted, code reason: 7-Patient Refused. 9-Not Applicable-not attempted and the patient did not perform the activity before the current illness, exacerbation or injury. 10-Not Attempted due to Environmental Limitations-(lack of equipment, weather restraints, etc.). 88-Not Attempted due to Medical Conditions or Safety Concerns. Other Treatment Pt given light resistance theraband and 3 exercises. Pt was SOB during exercises and required recovery breaks between each exercise and set. Skilled instruction given for correct technique and modifications when needed. Pt required verbal cues for reminders of which exercise to do. 2 sets of 10 reps, pt stated that her muscles were tired. After therapy, physician in room. Pt lying in bed with call light/phone in reach. All needs met in room. OT Short Term Goals Short Term Goals Time Frame: Apr 30, 2019 Eatin Oral hygiene: 5 Toileting hygiene: 3 (Mod assist with AE) Putting on/taking off footwear: 3 (Mod assist with AE) OT Penitentiary Goals Penitentiary Goals Time Frame: May 07, 2019 Eating (QC): 6 Oral Hygiene (QC): 6 Toileting Hygiene (QC): 4 (SBA with AE) On/Off Footwear (QC): 4 (SBA with AE) Additional Goals: 1-Demonstrate ADL Tasks, 2-Verbalize Understanding, 3- ImproveStrength/Ron 1=Demonstrate adherence to instructed precautions during ADL tasks. 2=Patient will verbalize/demonstrate understanding of assistive devices/modifications for ADL. 3=Patient will improve strength/tolerance for activity to enable patient to perform ADL's. OT Education/Plan Problem List/Assessment Assessment: Decreased Activ Tolerance, Decreased UE Strength, Impaired I ADL's, Impaired Self-Care Skills Discharge Recommendations Plan/Recommendations: Continue POC Treatment Plan/Plan of Care Patient would benefit from OT for education, treatment and training to promote independence in ADL's, mobility, safety and/or upper extremity function for ADL's. Plan of Care: ADL Retraining, Functional Mobility, UE Funct Exercise/Act Treatment Duration: May 07, 2019 Frequency: 5 times per week Estimated Hrs Per Day: .25 hour per day Agreement: Yes Rehab Potential: Fair Time/GCodes Start Time: 11:35 Stop Time: 11:45 Total Time Billed (hr/min): 10 Billed Treatment Time 1 visit-EX 1 (10 min) MARIPOSA LANCASTER Apr 30, 2019 11:53
[2019-04-30] MEDS: OXYMETAZOLINE (AFRIN) 0.05% NA 30 ML BTL NS PRN (14:03)
[2019-04-30 14:45] VITALS: BP 121/64
--- NOTE | 2019-04-30 15:13 | NUR ---
IRF Evaluation Order received to evaluate patient for the ARU. Chart review complete and findings discussed with Dr. Levi - patient denied. This denial is associated with patient's inability to tolerate intensive therapies. CM/SS notified. Thank you for this referral.
[2019-04-30 16:17] VITALS: BP 127/60
--- NOTE | 2019-04-30 16:51 | Progress Note ---
Subjective Subjective/Events-last exam Afebrile, feeling good, hoping to go home soon. Objective Exam Last Set of Vital Signs Vital Signs Date Time Temp Pulse Resp B/P (MAP) Pulse Ox O2 Delivery O2 Flow Rate FiO2 04/30/19 16:17 36.7 70 22 127/60 (82) 90 Nasal Cannula 4.00 04/30/19 14:45 40 Capillary Refill : Less Than 3 SecondsLess Than 3 Seconds I&O Intake and Output 04/30/19 00:00 Intake Total 6181 ml Output Total 6150 ml Balance 31 ml Intake Oral 6181 ml Output Urine Total 6050 ml Post Void Residual 100 ml General: Alert Lungs: Other (distant breath sounds) Heart: Other (distant heart sounds) Extremities: No Edema Psych/Mental Status: Mental Status NL Results/Procedures Lab Laboratory Tests 04/29/19 20:25: Glucometer 137H 04/30/19 04:20: White Blood Count 16.5H, Red Blood Count 4.71, Hemoglobin 13.7, Hematocrit 45, Mean Corpuscular Volume 95, Mean Corpuscular Hemoglobin 29, Mean Corpuscular Hemoglobin Concent 31L, Red Cell Distribution Width 16.0H, Platelet Count 331, Mean Platelet Volume 10.4, Sodium Level 136, Potassium Level 3.9, Chloride Level 90L, Carbon Dioxide Level 34H, Anion Gap 12, Blood Urea Nitrogen 36H, Creatinine 1.21, Estimat Glomerular Filtration Rate 45, BUN/Creatinine Ratio 30, Glucose Level 118H, Calcium Level 9.3, Corrected Calcium 9.7, Phosphorus Level 2.7, Magnesium Level 2.1, Total Bilirubin 0.8, Aspartate Amino Transf (AST/SGOT) 43H, Alanine Aminotransferase (ALT/SGPT) 42, Alkaline Phosphatase 61, Total Protein 6.6, Albumin 3.5 04/30/19 05:40: Glucometer 127H 04/30/19 10:50: Glucometer 101 04/30/19 16:09: Glucometer 97 Microbiology 04/22/19 Urine Culture - Final, Complete Escherichia coli 04/22/19 Blood Culture - Final, Complete No growth 04/22/19 MRSA Screen - Final, Complete MRSA not isolated Assessment/Plan Assessment/Plan Assessment & Plan Acute on chronic respiratory failure - improved, feeling well, plan for vent to mask at home per Dr. Abraham. Bilateral LE dopplers negative, cannot get CTA due to weight, is on apixaban currently Morbid obesity with hypoventilation Pulmonary edema secondary to grade II diastolic dysfunction- lasix per Cardiology, appreciate recommendations UTI- E coli, completed treatment with ceftriaxone COPD- appreciate Dr. Abraham recommendations, breathing treatments, supplemental oxygen as needed CAD- history of stenting, Cardiology consulted, appreciate recommendations IDDM Persistent leukocytosis no evidence for infection Home safety concern- has difficulty sitting up in bed for exam, but states she walks at home, will discuss with PT/OT, discussed with patient whether skilled facility may be helpful and she is not interested at this time. DVT prophylaxis- apixaban Clinical Quality Measures DVT/VTE Risk/Contraindication: Risk Factor Score Per Nursin RFS Level Per Nursing on Admit: 4+=Very High Contraindications-Mechi: Other *list below* Other: possible DVT ANA LUISA JOHNSON MD Apr 30, 2019 16:51
[2019-04-30] MEDS: MULTIVIT W/MINERALS TAB (THERAGRAN M) PO SCH (17:04)
[2019-04-30] MEDS: lisINopril 5 MG (PRINIVIL) TABLET PO SCH (17:04)
[2019-04-30] MEDS: FUROSEMIDE 40 MG (LASIX) TAB PO SCH (17:04)
[2019-04-30] MEDS: ASPIRIN E.C. 81 MG (ECOTRIN) TAB PO SCH (21:40)
[2019-04-30] MEDS: MELATONIN 3 MG TABLET PO PRN (21:40)
[2019-04-30] MEDS: ALPRAZolam 0.25 MG (XANAX) TAB PO PRN (21:40)
[2019-04-30] MEDS: VICTOZA SC SCH (21:41)
[2019-04-30] MEDS: ACETAMINOPHEN 325 MG TABLET PO PRN (22:54)
[2019-04-30 23:35] VITALS: BP 122/56
[2019-05-01] MEDS: RT-ALBUTEROL/IPRATROPIUM 3 ML (DUONEB) VIAL INH SCH ×4 (01:05→14:26)
[2019-05-01] MEDS: inSUlin ASPART (NovoLOG) 1 UNIT/0.01 ML (CHARGE PER UNIT) SC SCH ×4 (05:10→12:11)
[2019-05-01] MEDS: LEVOTHYROXINE 100 MCG (LEVOTHROID) TAB PO SCH (05:13)
[2019-05-01] MEDS: LEVOTHYROXINE 75 MCG (LEVOTHROID) TABLET PO SCH (05:13)
[2019-05-01] MEDS: ACETAMINOPHEN 325 MG TABLET PO PRN (05:13)
[2019-05-01] MEDS: FUROSEMIDE 40 MG (LASIX) TAB PO SCH (05:13)
[2019-05-01 06:08] LABS: BASOPHILS % (AUTO) 0 % (0-10); EOSINOPHILS # (AUTO) 0.4 10^3/uL (0.0-0.3); EOSINOPHILS % (AUTO) 2 % (0-10); HEMATOCRIT 42 % (35-52); HEMOGLOBIN 12.8 G/DL (11.5-16.0); LYMPHOCYTES # (AUTO) 1.9 X 10^3 (1.0-4.0); LYMPHOCYTES % (AUTO) 13 % (12-44); MEAN CORPUSCULAR HEMOGLOBIN 29 PG (25-34); MEAN CORPUSCULAR HGB CONC 31 G/DL (32-36); MEAN CORPUSCULAR VOLUME 94 FL (80-99); MEAN PLATELET VOLUME 10.1 FL (7.4-10.4); MONOCYTES # (AUTO) 1.2 X 10^3 (0.0-1.0); MONOCYTES % (AUTO) 8 % (0-12); NEUTROPHILS # (AUTO) 11.5 X 10^3 (1.8-7.8); NEUTROPHILS % (AUTO) 77 % (42-75); PLATELET COUNT 325 10^3/uL (130-400); RED CELL DISTRIBUTION WIDTH 16.2 % (10.0-14.5)
[2019-05-01 06:30] LABS: CREATININE SERUM 1.4 MG/DL (0.60-1.30); PHOSPHORUS 3.3 MG/DL (2.3-4.7); POTASSIUM 3.9 MMOL/L (3.6-5.0)
[2019-05-01 06:43] LABS: EOSINOPHILS % (MANUAL) 1 %; LYMPHOCYTES % (MANUAL) 10 %; MONOCYTES % (MANUAL) 6 %; NEUTROPHILS % (MANUAL) 83 %
[2019-05-01 08:00] VITALS: BP 144/71
--- NOTE | 2019-05-01 08:53 | Cardiology Progress Note ---
Subjective Date Seen by Provider: May 01, 2019 Time Seen by Provider: 08:20 Subjective/Events-last exam Patient up in bedroom doing ADL's, no new complaint. Denies chest pain. Review of Systems General: No Chills, No Night Sweats; Fatigue; No Malaise, No Appetite, No Other HEENT: No Head Aches, No Visual Changes, No Eye Pain, No Ear Pain, No Dysphasia, No Sinus Congestion, No Post Nasal Drip, No Sore Throat, No Other Pulmonary: Dyspnea; No Cough, No Pleuritic Chest Pain, No Other Cardiovascular: Edema; No: Chest Pain, Palpitations, Orthopnea, Paroxysmal Noc. Dyspnea, Lt Headedness, Other Objective-Cardiology Exam Last Set of Vital Signs Vital Signs 04/30/19 05/01/19 05/01/19 05/01/19 14:45 08:00 09:36 10:34 Temp 36.0 Pulse 69 Resp 20 B/P (MAP) 144/71 (95) Pulse Ox 92 O2 Delivery Nasal Cannula O2 Flow Rate 5.00 FiO2 40 Capillary Refill : Less Than 3 SecondsLess Than 3 Seconds I&O Intake and Output 05/01/19 00:00 Intake Total 2090 ml Output Total 1275 ml Balance 815 ml Intake Oral 2090 ml Output Urine Total 1275 ml # Voids 4 # Bowel Movements 1 General: Alert HEENT: Atraumatic Neck: Supple Lungs: Other (distant breath sounds) Heart: Normal S1, Normal S2, Other (distant heart sounds) Extremities: No Clubbing, No Edema Skin: No Breakdown Neuro: Normal Speech, Strength at 5/5 X4 Ext, Sensation Intact Psych/Mental Status: Mental Status NL Results Lab Laboratory Tests 05/01/19 05:50 A/P-Cardiology Admission Diagnosis Acute resp failure UTI HTN HLD Assessment/Plan Status post respiratory failure, feeling better, reporting improvement, managed by Dr. Abraham, was unable to undergo CTA chest secondary to weight. Was started on Eliquis. Peripheral edema, improving on Lasix. Continue to monitor UTI, Gram negative Bacilli were isolated, a course of Ceftriaxone was completed, having persistent leukocytosis, managed by Primary care team HTN, controlled, continue to monitor. CAD w/ 2 stents -Cardiac Cath in 2016 showed Mild to moderate CAD, nonobstructive, disease with patent stents in the right coronary artery & Mildly elevated LVEDP. Echocardiogram () showed normal LV size and function with ejection fraction 50-55 percent. Pulmonary hypertension with PA pressure 45-50 mmHg. COPD & OHS, followed and managed by Dr. Abraham Insulin Dependent DMII-Managed by Primary Care team Hyperlipidemia, LDL 57, controlled on current medications Hypothyroidism, receiving Levothyroxine, Managed by primary care team GERD Patient was seen and evaluated with Nora, examination performed, management plan was discussed, agree with the current scribed note, I made few changes to the note using Italic font Patient is feeling better, reporting significant improvement. Continue on diuretics and continue to monitor Arrange for follow-up as an outpatient. Clinical Quality Measures DVT/VTE Risk/Contraindication: Risk Factor Score Per Nursin RFS Level Per Nursing on Admit: 4+=Very High Contraindications-Mechi: Other *list below* Other: possible DVT NORA JANG May 01, 2019 8:53 am BELLE VERA MD May 01, 2019 1:40 pm
[2019-05-01] MEDS: SENNOSIDES 8.6 MG (SENOKOT) TAB PO SCH (09:00)
[2019-05-01] MEDS: glipiZIDE XL 10 MG (GLUCOTROL XL) TAB PO SCH (09:00)
[2019-05-01] MEDS ORDERED: APIXABAN 5 MG (ELIQUIS) TABLET PO SCH (09:00)
[2019-05-01] MEDS: FENOFIBRATE 134 MG (LOFIBRA) CAPSULE PO SCH (09:00)
[2019-05-01] MEDS: OMEGA 3 (FISH OIL) 1000 MG CAP PO SCH (09:00)
[2019-05-01] MEDS: meTOprolol TARTRATE 25 MG (LOPRESSOR) TABLET PO SCH (09:01)
[2019-05-01] MEDS: PANTOPRAZOLE 40 MG (PROTONIX) TAB PO SCH (09:01)
[2019-05-01] MEDS: DOCUSATE SODIUM 100 MG (COLACE) CAP PO SCH (09:01)
[2019-05-01] MEDS: CHLORASEPTIC LOZENGE MM PRN (09:07)
--- NOTE | 2019-05-01 10:13 | Physical Therapy Daily Note ---
PT Daily Note-Current Subjective Patient in recliner and agreeable to therapy at this time. Appearance Post treatment patient in recliner with call light and bedside table within reach. Mental Status Patient Orientation: Normal For Age Attachments: Oxygen Transfers SCALE: Activities may be completed with or without assistive devices. 4-Qaoadzjjce-cdzhxop completes the activity by him/herself with no assistance from a helper. 5-Set-up or Clean-up Assistance-helper sets up or cleans up; patient completes activity. [place] assists only prior to or following the activity. 4-Supervision or Touching Assistance-helper provides verbal cues and/or touching/steadying and/or contact guard assistance as patient completes activity. Assistance may be provided throughout the activity or intermittently. 3-Partial/Moderate Assistance-helper does LESS THAN HALF the effort. [place] lifts, holds or supports trunk or limbs, but provides less than half the effort. 2-Substantial/Maximal Assistance-helper does MORE THAN HALF the effort. [place] lifts or holds trunk or limbs and provides more than half the effort. 5-Wuaqkddsy-pfeplg does ALL the effort. Patient does none of the effort to complete the activity. Or, the assistance of 2 or more helpers is required for the patient to complete the activity. If activity was not attempted, code reason: 7-Patient Refused. 9-Not Applicable-not attempted and the patient did not perform the activity before the current illness, exacerbation or injury. 10-Not Attempted due to Environmental Limitations-(lack of equipment, weather restraints, etc.). 88-Not Attempted due to Medical Conditions or Safety Concerns. Sit to Stand (QC): 4 Gait Training Does the Patient Walk?: Yes Distance: 5' Gait Assistive Device: FWW Patient took several steps forward and backward within room CGA and was stable during those steps. Wheelchair Training Does the Pt Use a Wheelchair?: No Exercises Standing: Hip Abduction (10BLE), Marching (10BLE), Sit to Stand (3 CGA) Treatments BLE exercises, ambulation Assessment Patient had decreased ROM bilaterally due to morbid obesity. Patient was steady during the steps she took in her room but became SOB quickly. PT Pensionholder Information Clerk Goals Fpc Goals PT Fpc Goals Time Frame: May 12, 2019 Roll Left & Right (QC): 6 Sit to Lying (QC): 3 Lying-Sitting on Side/Bed(QC): 3 Sit to Stand (QC): 6 Chair/Vzn-ya-Jzqjz Xfer(QC): 6 Does the Patient Walk: Yes Walk 10 feet (QC): 6 Walk 50ft with 2 Turns (QC): 6 PT Plan Problem List Problem List: Activity Tolerance, Functional Strength, Safety, Balance, Gait, Transfer, Bed Mobility, ROM Treatment/Plan Treatment Plan: Continue Plan of Care Treatment Plan: Bed Mobility, Education, Functional Activity Ron, Functional Strength, Gait, Safety, Therapeutic Exercise, Transfers Treatment Duration: May 12, 2019 Frequency: 6 times per week Estimated Hrs Per Day: .25 hour per day Patient and/or Family Agrees t: Yes Safety Risks/Education Patient Education: Transfer Techniques Teaching Recipient: Patient Teaching Methods: Discussion Response to Teaching: Reinforcement Needed Time/GCodes Time In: 925 Time Out: 934 Total Billed Treatment Time: 9 Total Billed Treatment 1 visit EX 9 SIL HENRIQUEZ PT May 01, 2019 10:13
--- NOTE | 2019-05-01 10:35 | NUR ---
pt sp02 resting without 02 is 85% after 3mins. 02 was trialed at 3,4,5 Lpm. without sp02 returning to atleast 90. Pt was placed on 6LPM pt's sp02 returned to 91% pt qualifies for 6LPM at all times. Addendum: 05/01/19 at 1036 by JOZEF LOUIS RT Amended: Links added.
--- NOTE | 2019-05-01 11:26 | Occupational Ther Daily Note ---
OT Current Status-Daily Note Subjective Pt alert, sitting in recliner. Pt agrees to therapy. No c/o pain. Very happy about sleeping last night. Mental Status/Objective Patient Orientation: Person, Place, Time, Situation Attachments: Oxygen, Telemetry ADL-Treatment Pt ambulated with CGA using FWW to toilet and transferred with SBA using grabbars and FWW. Pt stated that her always completes toileting hygiene due to pannus and short arms. Pt also states that assists with all lower body dressing. Introduced pt to sock aide and pt demonstrated understanding by completing task. Assist x3 for EOB to supine then assist x3 for scooting up in bed. Pt able to use bedrails to roll side to side with 1 assist. After therapy, nrsg in room and pt lying in bed. Call light/phone in reach. All needs met in room. Therapy Code Descriptions/Definitions Functional [place] Measure: 0=Not Assessed/NA 4=Minimal Assistance 1=Total Assistance 5=Supervision or Setup 2=Maximal Assistance 6=Modified [place] 3=Moderate Assistance 7=Complete IndependenceSCALE: Activities may be completed with or without assistive devices. 5-Czqwtgvefn-wqfvatx completes the activity by him/herself with no assistance from a helper. 5-Set-up or Clean-up Assistance-helper sets up or cleans up; patient completes activity. [place] assists only prior to or following the activity. 4-Supervision or Touching Assistance-helper provides verbal cues and/or touching/steadying and/or contact guard assistance as patient completes activity. Assistance may be provided throughout the activity or intermittently. 3-Partial/Moderate Assistance-helper does LESS THAN HALF the effort. [place] lifts, holds or supports trunk or limbs, but provides less than half the effort. 2-Substantial/Maximal Assistance-helper does MORE THAN HALF the effort. [place] lifts or holds trunk or limbs and provides more than half the effort. 0-Rlzsxdsmj-bbxduf does ALL the effort. Patient does none of the effort to complete the activity. Or, the assistance of 2 or more helpers is required for the patient to complete the activity. If activity was not attempted, code reason: 7-Patient Refused. 9-Not Applicable-not attempted and the patient did not perform the activity before the current illness, exacerbation or injury. 10-Not Attempted due to Environmental Limitations-(lack of equipment, weather restraints, etc.). 88-Not Attempted due to Medical Conditions or Safety Concerns. On/Off Footwear: 2 Toileting Hygiene (QC): 2 Toilet Transfer (QC): 4 OT Short Term Goals Short Term Goals Time Frame: Apr 30, 2019 Eatin Oral hygiene: 5 Toileting hygiene: 3 (Mod assist with AE) Putting on/taking off footwear: 3 (Mod assist with AE) OT Penitentiary Goals Boom Man Goals Time Frame: May 07, 2019 Eating (QC): 6 Oral Hygiene (QC): 6 Toileting Hygiene (QC): 4 (SBA with AE) On/Off Footwear (QC): 4 (SBA with AE) Additional Goals: 1-Demonstrate ADL Tasks, 2-Verbalize Understanding, 3- ImproveStrength/Ron 1=Demonstrate adherence to instructed precautions during ADL tasks. 2=Patient will verbalize/demonstrate understanding of assistive devices/modifications for ADL. 3=Patient will improve strength/tolerance for activity to enable patient to perform ADL's. OT Education/Plan Problem List/Assessment Assessment: Decreased Activ Tolerance, Impaired Self-Care Skills Discharge Recommendations Plan/Recommendations: Continue POC Treatment Plan/Plan of Care Patient would benefit from OT for education, treatment and training to promote independence in ADL's, mobility, safety and/or upper extremity function for ADL's. Plan of Care: ADL Retraining, Functional Mobility, UE Funct Exercise/Act Treatment Duration: May 07, 2019 Frequency: 5 times per week Estimated Hrs Per Day: .25 hour per day Agreement: Yes Rehab Potential: Fair Time/GCodes Start Time: 10:49 Stop Time: 11:15 Total Time Billed (hr/min): 26 Billed Treatment Time 1 visit-ADL 2 (26 min) MARIPOSA LANCASTER May 01, 2019 11:26
[2019-05-01] MEDS ORDERED: APIX5TAB PO (13:25)
[2019-05-01] MEDS ORDERED: FURO40TA4 PO (13:25)
--- NOTE | 2019-05-01 13:32 | D/C HH Face to Face Order ---
D/C Face to Face Orders Instructions for Patient Patient Instructions/FollowUp: Follow up with Dr. Styles on 05/04 at 2:40 pm. Follow up with Dr. Abraham as directed. Follow up with Cardiology as directed. Physician to follow Patient: Dr. Styles Discharge Diet for Home: ADA Diet Patient Problems: Chronic respiratory failure Diabetes Debility Morbid obesity Patient Data-Allergies,Ht & Wt Patient Allergies: Coded Allergies: canagliflozin (Verified Allergy, Unknown, 04/23/19) Height (Feet): 5 Height (Inches): 5.00 Weight (Pounds): 380 Weight (Ounces): 0.0 Home Health Need/Face to Face Date of Face to Face: May 01, 2019 Clinical Findings: Instability, Muscle weakness, Shortness of breath I have seen Pt vkvd-sr-igji: Yes Discharged To: Home Diagnosis/Conditions: Chronic respiratory faillure Morbid obesity with debility Patient is Homebound due to: Muscle weakness, Shortness of breath/distress Homebound Status Due to the above stated illness, injury or surgical procedure (medical condition or diagnosis) and associated clinical findings, the patient is homebound because of his/her inability to leave home except with aid of a supportive device and/or person AND leaving the home requires a considerable and taxing effort or is medically contraindicated. Pt req the following assistanc: Walker Home Health Nursing Orders Home Health Services Order: Nursing Services, Waste Management Recycling Technician-Evaluate & Treat, Physical Therapy-Evaluate & Treat, Wound Care-Eval/Treat Home Health Infusion Therapy Line Start Date: Apr 23, 2019 Therapy Orders Therapy Orders: Physical Therapy, PT to assess for OT Certify Stmt I certify that this patient is under my care and that I, a nurse practitioner or a physician; a title i assistant working with me, had a face to face encounter that - meets the physician face to face encounter requirements with this patient as dated. ANA LUISA JOHNSON MD May 01, 2019 13:32
--- NOTE | 2019-05-01 15:10 | NUR ---
Important Message from Medicare presented, reviewed, signed and placed in patient chart. Patient and , Shane voiced no intention to appeal and deny any needs or further questions at this time.
--- NOTE | 2019-05-01 15:29 | NUR ---
CM/SS: Visited with pt as to plan for discharge DME: Oxygen liter flow increased - new orders faxed to [facility]o Summary: Pt is reading her bible at the time of the visit. Pt is eager to return home. Discussed home care with pt. Pt is given the start ratings and choice list and given explanation of home care services. Pt is open to having home care. She has chose [facility] home care. Other medical equipment is discussed. Some of what patient has asked for will be an out of pocket expense. She is encouraged to talk with the equipment company as to obtaining the equipment. She verbalized understanding. Information faxed to [facility] home Care. Information and new oxygen order is faxed to [facility]et[facility] [phone]. Due to change in liter flow. Pt is informed that referral has been made and that Home Care will make contact with her upon discharge. She verbalizes understanding.
--- NOTE | 2019-05-01 16:43 | Discharge Summary ---
Discharge Summary Hospital Course Hospital Course Date of Admission: Apr 22, 2019 at 20:34 Admission Diagnosis : Family Physician/Provider: Jd Mao MD Date of Discharge: 05/01/19 Discharge Diagnosis: Acute on chronic respiratory failure - improved, feeling well, plan for vent to mask at home per Dr. Abraham. Elevated D dimer with Bilateral LE dopplers negative, cannot get CTA due to weight, is on apixaban currently, plan to continue for 3 months at least Morbid obesity with hypoventilation- home supplemental O2 at 6 lpm ordered as well as vent to mask was to be delivered to home on d/c. Pulmonary edema secondary to grade II diastolic dysfunction- lasix per Cardiology UTI- E coli, completed treatment with ceftriaxone COPD- appreciate Dr. Abraham recommendations, breathing treatments, supplemental oxygen as needed CAD- history of stenting, Cardiology consulted IDDM Persistent leukocytosis no evidence for infection Home safety concern- has difficulty sitting up in bed for exam, but states she walks at home, will discuss with PT/OT, discussed with patient whether skilled facility may be helpful and she is not interested at this time. Discharged with home health Hospital Course: See discharge diagnoses Labs and Pending Lab Test: Laboratory Tests 04/30/19 20:12: Glucometer 143H 05/01/19 05:09: Glucometer 137H 05/01/19 05:50: White Blood Count 15.0H, Red Blood Count 4.42, Hemoglobin 12.8, Hematocrit 42, Mean Corpuscular Volume 94, Mean Corpuscular Hemoglobin 29, Mean Corpuscular Hemoglobin Concent 31L, Red Cell Distribution Width 16.2H, Platelet Count 325, Mean Platelet Volume 10.1, Neutrophils (%) (Auto) 77H, Lymphocytes (%) (Auto) 13, Monocytes (%) (Auto) 8, Eosinophils (%) (Auto) 2, Basophils (%) (Auto) 0, Neutrophils # (Auto) 11.5H, Lymphocytes # (Auto) 1.9, Monocytes # (Auto) 1.2H, Eosinophils # (Auto) 0.4H, Basophils # (Auto) 0.0, Neutrophils % (Manual) 83, Lymphocytes % (Manual) 10, Monocytes % (Manual) 6, Eosinophils % (Manual) 1, S odium Level 135, Potassium Level 3.9, Chloride Level 92L, Carbon Dioxide Level 32, Anion Gap 11, Blood Urea Nitrogen 40H, Creatinine 1.40H, Estimat Glomerular Filtration Rate 38, BUN/Creatinine Ratio 29, Glucose Level 131H, Calcium Level 9.0, Phosphorus Level 3.3, Magnesium Level 2.0 05/01/19 11:18: Glucometer 174H Microbiology 04/22/19 Urine Culture - Final, Complete Escherichia coli 04/22/19 Blood Culture - Final, Complete No growth 04/22/19 MRSA Screen - Final, Complete MRSA not isolated Home Meds Active Furosemide 40 Mg Tablet 40 Mg PO DAILY Eliquis (Apixaban) 5 Mg Tablet 5 Mg PO BID Reported Nasal Decongestant (Oxymetazoline HCl) 30 Ml Hamler 1 Hamler NS BID PRN Tussin (Guaifenesin) 100 Mg/5 Ml Liquid 10 Ml PO Q4H PRN Cough Drops (Menthol) 2.7 Mg Lozenge 2.7 Mg MM Q2H PRN Atorvastatin Calcium 40 Mg Tablet 40 Mg PO HS Glipizide ER (Glipizide) 5 Mg Tab.er.24 10 Mg PO DAILY TAKES 2 (5MG) TABLETS Victoza 3-Juanito (Liraglutide) 0.6 Mg/0.1 Ml Pen.injctr 1.2 Mg SC HS Omeprazole 20 Mg Capsule.dr 20 Mg PO BID Fenofibrate 160 Mg Tablet 160 Mg PO DAILY Metoprolol Tartrate 25 Mg Tablet 25 Mg PO BID Clopidogrel (Clopidogrel Bisulfate) 75 Mg Tablet 75 Mg PO DAILY Levothyroxine Sodium 175 Mcg Tablet 175 Mcg PO DAILY Lisinopril 5 Mg Tablet 5 Mg PO 1800 Ymrjkpb-Cgmtwnwup-Ebfk Tablet (Calcium Carb/Mag Ox/Zinc Sulf) 1 Each Tablet 1 Tab PO 1600 Glucosamine (Glucosamine Sulfate 2Kcl) 1,000 Mg Tablet 1,000 Mg PO 1600 Miralax (Polyethylene Glycol 3350) 17 Gm Powd.pack 17 Gm PO DAILY PRN Acetaminophen Extra Strength (Acetaminophen) 500 Mg Tablet 1,000 Mg PO Q6H PRN Multivitamins (Multivitamin) 1 Each Tablet 1 Tab PO 1600 Aspirin EC (Aspirin) 81 Mg Tablet.dr 81 Mg PO HS Antacid (Calcium Carbonate) 200 Mg Tab.chew 200 Mg PO TID PRN Fish Oil 1,000 mg Capsule (Eugene 3 Polyunsat Fatty Acids) 1,000 Mg Cap 2,000 Mg PO 0800,1600 Novolog Flexpen (Insulin Aspart) 300 Units/3 Ml Solution 18 Units SQ AC Levemir Flextouch (Insulin Detemir) 100 Unit/1 Ml Insuln.pen 16 Units SQ HS Januvia (Sitagliptin Phosphate) 100 Mg Tablet 100 Mg PO DAILY Assessment/Pt DC Instructions See above Discharge Physical Examination Allergies: Coded Allergies: canagliflozin (Verified Allergy, Unknown, 04/23/19) General Appearance: No Apparent Distress, Obese Respiratory: Decreased Breath Sounds Cardiovascular: Other (distant heart sounds) Neurologic/Psychiatric: Alert, Normal Mood/Affect Copy Copies To 1: JD MAO MD Clinical Quality Measures DVT/VTE Risk/Contraindication: Risk Factor Score Per Nursin RFS Level Per Nursing on Admit: 4+=Very High Contraindications-Mechi: Other *list below* Other: possible DVT ANA LUISA JOHNSON MD May 01, 2019 16:43
== END 2019-05-01 15:33 | disposition home health service (06) | DRG 189 ==
LOC: ICU 20:34 → 4TH 04-25 15:47
PROVIDERS: ADMIT Internal Medicine; ATTEND Family Medicine
DX: J96.21 Acute and chronic respiratory failure with hypoxia (principal); J96.22 Acute and chronic respiratory failure with hypercapnia; E66.2 Morbid (severe) obesity with alveolar hypoventilation; Z68.45 Body mass index [BMI] 70 or greater, adult; N39.0 Urinary tract infection, site not specified; E87.2 Acidosis; J81.1 Chronic pulmonary edema; I27.20 Pulmonary hypertension, unspecified; I25.10 Atherosclerotic heart disease of native coronary artery without angina pectoris; I10 Essential (primary) hypertension; E78.5 Hyperlipidemia, unspecified; E11.40 Type 2 diabetes mellitus with diabetic neuropathy, unspecified; J44.9 Chronic obstructive pulmonary disease, unspecified; K21.9 Gastro-esophageal reflux disease without esophagitis; E83.41 Hypermagnesemia; E87.5 Hyperkalemia; E03.9 Hypothyroidism, unspecified; M19.91 Primary osteoarthritis, unspecified site; B96.20 Unspecified Escherichia coli [E. coli] as the cause of diseases classified elsewhere; Z79.4 Long term (current) use of insulin; Z95.5 Presence of coronary angioplasty implant and graft; Z87.891 Personal history of nicotine dependence; Z99.81 Dependence on supplemental oxygen
CPT/HCPCS: 36415; 71045; 80048; 80053; 80061; 81000; 82805; 82962; 83605; 83735; 83880; 84100; 84484; 85007; 85025; 85027; 85379; 87040; 87077; 87081; 87088; 87186; 93970; 94640; 94660; 94664; 94760; 94761

== ENCOUNTER 2020-04-27 12:48 | Inpatient (IN) | payer MEDICARE, MEDICAID ==
[2020-04-27] VITALS (8 sets, daily range): BP systolic 114–141; BP diastolic 53–80
[~2020-04-27] VITALS: Ht 165 cm; Wt 161.3 kg
[~2020-04-27 12:48] MED LIST changes: +ACET-168 PO; +ACET-3075 PO; +ACET1TAB37 PO; +AMLO-250 PO; +APIX5TAB PO; +ASPI-1238 PO; +BISA-65 PO; +CALC-233 PO; +CALC-927 PO; +CIPR-225 PO; +CLOP75TA28 PO; +CLOT15CR6 TOP; +CYCL10TA9 PO; +DIPH-85 PO; +FENO160T12 PO; +FLUC100T6 PO; +FURO40TA4 PO; +GABA-488 PO; +GBPN600T PO; +GLUC100016 PO; +GUAI100L36 PO; +LEVO175T5 PO; +LIRA0.6P3 SC; +LISI-556 PO; +MENT2.7L MM; +METO-333 PO; +MULT-567 PO; +OMEG-109 PO; +OMEP20CA18 PO; +OXYM-51 NS; +POLY17PO6 PO; +TRAM50TA3 PO
--- NOTE | 2020-04-27 12:55 | NUR ---
IV STARTED IN Krishna BELL #20 2ND IV STARTED IN Beatrice VALDEZ SENT TO LAB Addendum: 04/27/20 at 1537 by PMCCLURE FFB INFUSED
[2020-04-27] MEDS ORDERED: NS IV 500 ML 500 ML IV SCH (13:00)
--- NOTE | 2020-04-27 13:03 | NUR ---
BLOOD BANK HERE 2 UNITS OF O POS CHECKED AND GIVEN TO START. Addendum: 04/27/20 at 1311 by PMCCLURE VERBAL CONSENT GIVEN FOR BLOOD. Addendum: 04/27/20 at 1322 by PMCCLURE 1STUNIT ONLY STARTD.
--- NOTE | 2020-04-27 13:07 | NUR ---
1 ST UNIT STARTED 2NND UNIT PIGGY BACKED IN. TO FIRST UNIT.
[2020-04-27 13:09] LABS: BASOPHILS # (AUTO) 0.1 10^3/uL (0.0-0.1); BASOPHILS % (AUTO) 0 % (0-10); EOSINOPHILS # (AUTO) 0.1 10^3/uL (0.0-0.3); EOSINOPHILS % (AUTO) 0 % (0-10); HEMATOCRIT 27 % (35-52); HEMOGLOBIN 8.2 g/dL (11.5-16.0); LYMPHOCYTES # (AUTO) 3.1 10^3/uL (1.0-4.0); LYMPHOCYTES % (AUTO) 12 % (12-44); MEAN CORPUSCULAR HEMOGLOBIN 30 pg (25-34); MEAN CORPUSCULAR HGB CONC 30 g/dL (32-36); MEAN CORPUSCULAR VOLUME 100 fL (80-99); MEAN PLATELET VOLUME 9.8 fL (9.0-12.2); MONOCYTES # (AUTO) 1.3 10^3/uL (0.0-1.0); MONOCYTES % (AUTO) 5 % (0-12); NEUTROPHILS # (AUTO) 21.5 10^3/uL (1.8-7.8); NEUTROPHILS % (AUTO) 82 % (42-75); PLATELET COUNT 596 10^3/uL (130-400); WHITE BLOOD COUNT 26.3 10^3/uL (4.3-11.0)
[2020-04-27] MEDS ORDERED: NS IV 1000 ML 1,000 ML ONE (13:09)
[2020-04-27] MEDS ORDERED: LACTATED RINGERS 1,000 ML IV STA (13:13)
[2020-04-27] MEDS ORDERED: HUMAN PROTHROMBIN COMPLX(PCC) 500 UNIT (KCENTRA) IV ONE (13:15)
[2020-04-27 13:21] LABS: CHLORIDE 99 MMOL/L (98-107); SODIUM 132 MMOL/L (135-145)
[2020-04-27 13:22] LABS: CALCIUM 8.6 MG/DL (8.5-10.1)
[2020-04-27 13:23] LABS: TOTAL PROTEIN 6.8 GM/DL (6.4-8.2)
[2020-04-27 13:24] LABS: CARBON DIOXIDE 20 MMOL/L (21-32)
[2020-04-27 13:25] LABS: BILIRUBIN,TOTAL 0.6 MG/DL (0.1-1.0)
[2020-04-27] MEDS: LACTATED RINGERS 1,000 ML IV ONE ×2 (13:25→15:21)
[2020-04-27 13:26] LABS: ALKALINE PHOSPHATASE 157 U/L (40-136); GLUCOSE 419 MG/DL (70-105)
--- NOTE | 2020-04-27 13:26 | NUR ---
LR STARTED WTH NS
[2020-04-27 13:27] LABS: CREATININE SERUM 1.26 MG/DL (0.60-1.30); GFR ESTIMATED 42
[2020-04-27 13:28] LABS: BUN/CREATININE RATIO 16
--- NOTE | 2020-04-27 13:28 | NUR ---
1ST UNIT INFUSED 2ND UBIT STARTED
[2020-04-27 13:30] LABS: ALANINE AMINOTRANSFERASE 31 U/L (0-55)
[2020-04-27] MEDS ORDERED: inSUlin (REGULAR) HUMAN 1 UNIT/0.01 ML (CHARGE PER UNIT) IV ONE (13:30)
[2020-04-27 13:31] LABS: POTASSIUM 5.7 MMOL/L (3.6-5.0)
--- NOTE | 2020-04-27 13:38 | ED GI ---
General Chief Complaint: Abdominal/GI Problems Stated Complaint: GI BLEED,HYPOTENSION Nursing Triage Note: TO ED PER EMS FROM NURSING LONG TERM STAFF REPORT WAS A TOMFER FROM [facility] ON Tue C/O ABD CRAMPING ONSET OF RECTAL BLEEDING. Sepsis Screen: No Definite Risk Source of Information: Patient Exam Limitations: No Limitations History of Present Illness Date Seen by Provider: Apr 27, 2020 Time Seen by Provider: 12:46 Initial Comments Patient to the ER by EMS from [facility] with chief complaint of hypotension 65/25 and covered in blood from the waist down per EMS. She is on Eliquis for atrial fibrillation. She is not having any chest pain shortness of air nausea vomiting or abdominal pain. She recently discharged 5 days ago from [facility] into medical [place] system after being worked up for gallbladder and GI bleed. She had a upper GI scope which was negative. She had gallstones and was told she needed to have her gallbladder out. She is denies ever having any abdominal surgeries before. She does have a history of coronary disease with two stents. Primary care by Dr. Rosario. Local cardiology and she is supposed to follow with Dr. Abraham, pulmonology but has not seen him yet. She does require oxygen 2 to 3 L at baseline for history of COPD. She has not had a colonoscopy. She says that the results of her upper GI were normal. She says she had to receive 1 unit of blood at for anemia. Allergies and Home Medications Allergies Coded Allergies: canagliflozin (Verified Allergy, Unknown, 04/23/19) Home Medications Acetaminophen 500 Mg Tablet, 1,000 MG PO Q4H PRN for PAIN-MILD (1-4), (Reported) Amlodipine Besylate 5 Mg Tablet, 5 MG PO DAILY, (Reported) Apixaban 5 Mg Tablet, 5 MG PO BID, (Reported) Aspirin 81 Mg Tablet.dr, 81 MG PO HS, (Reported) Atorvastatin Calcium 40 Mg Tablet, 40 MG PO HS, (Reported) Bisacodyl 5 Mg Tablet.dr, 5-10 MG PO PRN PRN for CONSTIPATION-3RD LINE, (Reported) Ciprofloxacin HCl 500 Mg Tablet, 500 MG PO BID Prescribed by: ANA LUISA JOHNSON on 01/07/20 1201 Cyclobenzaprine HCl 10 Mg Tablet, 10 MG PO BID PRN for MUSCLE SPASMS, (Reported) Gabapentin 600 Mg Tablet, 600 MG PO TID, (Reported) Glipizide 5 Mg Tab.er.24, 10 MG PO DAILY, (Reported) TAKES 2 (5MG) TABLETS Levothyroxine Sodium 175 Mcg Tablet, 175 MCG PO DAILY, (Reported) Lisinopril 5 Mg Tablet, 5 MG PO 1800, (Reported) Multivitamin 1 Each Tablet, 1 TAB PO 1600, (Reported) Dexter-3 Fatty Acids/Fish Oil 1 Each Capsule, 1,200 MG PO BID, (Reported) Omeprazole 20 Mg Capsule.dr, 20 MG PO BID, (Reported) Polyethylene Glycol 3350 17 Gm Powd.pack, 17 GM PO DAILY PRN for CONSTIPATION- 2ND LINE, (Reported) Sitagliptin Phosphate 100 Mg Tablet, 100 MG PO DAILY, (Reported) Tramadol HCl 50 Mg Tablet, 50 MG PO Q6H PRN for PAIN-MODERATE (5-7), (Reported) Patient Home Medication List Home Medication List Reviewed: Yes Review of Systems Review of Systems Constitutional: No chills, No diaphoresis, No fever EENTM: No Blurred Vision, No Double Vision Respiratory: Denies Cough, Denies Shortness of Air Cardiovascular: Denies Chest Pain, Denies Lightheadedness Gastrointestinal: See HPI, Abdominal Pain; Denies Constipated, Denies Diarrhea, Denies Nausea Genitourinary: Denies Burning, Denies Discharge Musculoskeletal: No back pain, No joint pain Hematologic/Lymphatic: See HPI, Anemia; Denies Blood Clots; Easy Bleeding All Other Systems Reviewed Negative Unless Noted: Yes Past Tdixwbm-Deexkh-Naorxf Hx Patient Social History Alcohol Use: Denies Use Smoking Status: Never a Smoker Type Used: Cigarettes Former Smoker, Quit: Nov 28, 2007 Recent Infectious Disease Expo: No Immunizations Up To Date Date of Pneumonia Vaccine: Dec 26, 2018 Date of Influenza Vaccine: Apr 16, 2019 Past Medical History Surgeries: Yes Coronary Stent Respiratory: Yes Sleep Apnea Cardiac: Yes Coronary Artery Disease, High Cholesterol, Hypertension Neurological: Yes Neuropathy Reproductive Disorders: No Genitourinary: Yes Kidney Infection Gastrointestinal: Yes Gastroesophageal Reflux Musculoskeletal: Yes Arthritis Endocrine: Yes Diabetes, Insulin dep, Hypothyroidsim HEENT: No Loss of Vision: Denies Cancer: No Psychosocial: No Integumentary: Yes (changes under her pannus) Family Medical History Heart Disease, Diabetes, Hypertension Physical Exam Vital Signs Vital Signs - First Documented 04/27/20 12:48 Pulse 82 Resp 18 B/P (MAP) 107/91 (96) Pulse Ox 100 O2 Delivery Nasal Cannula O2 Flow Rate 2.00 Capillary Refill : Less Than 3 Seconds Height/Weight/BMI Height: 5'5.00" Weight: 380lbs. 0.0oz. [id number]; 60.00 BMI Method: General Appearance: severe distress, obese HEENT: PERRL/EOMI, TMs normal, pharynx normal Neck: non-tender, full range of motion, supple, normal inspection Respiratory: chest non-tender, lungs clear, normal breath sounds, no respiratory distress, no accessory muscle use Cardiovascular: normal peripheral pulses, regular rate, rhythm, no edema, tachycardia Peripheral Pulses: 2+ Radial Pulses (R), 2+ Radial Pulses (L) Gastrointestinal: normal bowel sounds, non tender, soft, other (Clothing saturated in blood probably excess of 1000 cc of sanguinous fluid on the lift sheet that accompanies her.) Extremities: normal range of motion, slow capillary refill Neurologic/Psychiatric: alert, normal mood/affect, oriented x 3 Skin: warm/dry, pallor Procedures/Interventions Lumen: triple Central Line Procedure: betadine prep (Chlorhexidine prep), sterile drapes applied, sterile dressing applied Position: internal jugular (R) Anesthesia: Lidocaine (1% without epinephrine) Volume Anesthetic (ccs): 3 Complications: none Post Position: sutured, good blood return, position confirmed w/ CXR Risks, benefits and alternatives were discussed with the patient and she consented to the procedure. She was positioned in the usual format and using the usual sterile garment and drapes the patient was dressed out. The skin was thoroughly cleaned with the supplied chlorhexidine prep. After the prep and dried a sterile drape was placed. The 20 cm 7 Tamazight triple-lumen catheter was flushed with sterile saline. We used ultrasound guidance to pass the introducer needle into the right internal jugular without difficulty. A guidewire was p laced easily without difficulty. No ectopy was seen on the monitor. The supplied 11 blade scalpel was used to make a 2 mm incision at the inferior portion of the introducer needle. The introducer needle was replaced with the dilator. The dilator was taken out and the patient had the central lumen of the triple lumen catheter threaded over the guidewire and placed at 16 cm. The guidewire was removed and the triple-lumen catheter was stitched in place using the supplied braided stitch at 2 different points. The catheter withdrew blood and flushed easily. A sterile dressing was placed over the catheter. The patient tolerated the procedure well. A chest x-ray was obtained that demonstrated no pneumothorax and a new interval central catheter over the shadow of the right internal jugular down the superior vena cava and terminating just proximal to the right atria. Progress/Results/Core Measures Results/Orders Lab Results Laboratory Tests Test 04/27/20 13:00 Range/Units White Blood Count 26.3 H 4.3-11.0 10^3/uL Red Blood Count 2.71 L 3.80-5.11 10^6/uL Hemoglobin 8.2 L 11.5-16.0 g/dL Hematocrit 27 L 35-52 % Mean Corpuscular Volume 100 H 80-99 fL Mean Corpuscular Hemoglobin 30 25-34 pg Mean Corpuscular Hemoglobin Concent 30 L 32-36 g/dL Red Cell Distribution Width 18.6 H 10.0-14.5 % Platelet Count 596 H 130-400 10^3/uL Mean Platelet Volume 9.8 9.0-12.2 fL Immature Granulocyte % (Auto) 1 % Neutrophils (%) (Auto) 82 H 42-75 % Lymphocytes (%) (Auto) 12 12-44 % Monocytes (%) (Auto) 5 0-12 % Eosinophils (%) (Auto) 0 0-10 % Basophils (%) (Auto) 0 0-10 % Neutrophils # (Auto) 21.5 H 1.8-7.8 10^3/uL Lymphocytes # (Auto) 3.1 1.0-4.0 10^3/uL Monocytes # (Auto) 1.3 H 0.0-1.0 10^3/uL Eosinophils # (Auto) 0.1 0.0-0.3 10^3/uL Basophils # (Auto) 0.1 0.0-0.1 10^3/uL Immature Granulocyte # (Auto) 0.4 H 0.0-0.1 10^3/uL Sodium Level 132 L 135-145 MMOL/L Potassium Level 5.7 H 3.6-5.0 MMOL/L Chloride Level 99 98-107 MMOL/L Carbon Dioxide Level 20 L 21-32 MMOL/L Anion Gap 13 5-14 MMOL/L Blood Urea Nitrogen 20 H 7-18 MG/DL Creatinine 1.26 0.60-1.30 MG/DL Estimat Glomerular Filtration Rate 42 BUN/Creatinine Ratio 16 Glucose Level 419 *H 70-105 MG/DL Calcium Level 8.6 8.5-10.1 MG/DL Corrected Calcium 9.4 8.5-10.1 MG/DL Total Bilirubin 0.6 0.1-1.0 MG/DL Aspartate Amino Transf (AST/SGOT) 25 5-34 U/L Alanine Aminotransferase (ALT/SGPT) 31 0-55 U/L Alkaline Phosphatase 157 H 40-136 U/L Troponin I < 0.028 <0.028 NG/ML Total Protein 6.8 6.4-8.2 GM/DL Albumin 3.0 L 3.2-4.5 GM/DL My Orders Orders - JOSEY MARQUEZ Vital Signs: Special (Order) (04/27/20 12:58) Consent-Obtain Consent For (04/27/20 12:58) Monitor S/S Transfusion Reacti (04/27/20 12:58) Ns Iv 500 Ml (Sodium Chloride 0.9%) (04/27/20 13:00) Type And Screen (04/27/20 12:58) Red Cells Leukocytes Reduced (04/27/20 12:58) Preop Checklist (04/27/20 12:58) Cbc With Automated Diff (04/27/20 12:58) Comprehensive Metabolic Panel (04/27/20 12:58) Ekg Tracing (04/27/20 12:58) Continuous Ekg Monitoring (04/27/20 12:58) Troponin I (04/27/20 12:58) Ua Culture If Indicated (04/27/20 12:58) Straight Cath For Spec.-Adult (04/27/20 12:58) Fresh Frozen Plasma (04/27/20 13:04) Platelet Pheresis Lr (04/27/20 13:04) Human Prothrombin Complx(Pcc) (Kcentra K (04/27/20 13:15) Manual Differential (04/27/20 13:00) Ns Iv 1000 Ml (Sodium Chloride 0.9%) (04/27/20 13:09) Red Cells Leukocytes Reduced (04/27/20 13:13) Ed Iv/Invasive Line Start (04/27/20 13:13) Lactated Ringers (Lr 1000 Ml Iv Solution (04/27/20 13:15) Lactated Ringers (Lr 1000 Ml Iv Solution (04/27/20 13:13) Insulin (Regular) Human (Novolin R (Per (04/27/20 13:30) Pantoprazole Injection (Protonix Injecti (04/27/20 13:45) Ns (Ivpb) (Sodium C... W/Pantoprazole In (04/27/20 13:45) Chest 1 View, Ap/Pa Only (04/27/20 13:59) Red Cells Leukocytes Reduced (04/27/20 13:00) Catheter(Urinary) Insert & Ass ,15 (04/27/20 14:32) Code/Resuscitation (04/27/20 14:52) Medications Given in ED Current Medications Medications Dose Ordered Sig/Siri Route Start Time Stop Time Status Last Admin Dose Admin Insulin Human Regular 20 unit ONCE ONCE IV 04/27/20 13:30 04/27/20 13:31 DC 04/27/20 13:50 20 UNIT Lactated Ringer's 1,000 ml @ 0 mls/hr Q0M ONCE IV 04/27/20 13:15 04/27/20 13:16 DC 04/27/20 13:25 1,000 MLS/HR Pantoprazole 40 mg ONCE ONCE IV 04/27/20 13:45 04/27/20 13:46 DC 04/27/20 13:52 40 MG Prothrombin Complex Concent (Human) 2,000 unit ONCE ONCE IV 04/27/20 13:15 04/27/20 13:16 DC 04/27/20 13:23 2,000 UNIT Sodium Chloride 1,000 ml @ ud STK-MED ONCE .ROUTE 04/27/20 13:09 04/27/20 13:13 DC 04/27/20 13:54 1,000 MLS/HR Vital Signs/I&O 04/27/20 04/27/20 04/27/20 12:48 13:36 13:47 Pulse 82 76 74 Resp 18 18 B/P (MAP) 107/91 (96) 91/39 (56) 104/41 (62) Pulse Ox 100 99 O2 Delivery Nasal Cannula Room Air O2 Flow Rate 2.00 Blood Pressure Mean: 96 Progress Progress Note : Time: 15:00 Progress Note The patient presents mentating however her blood pressure is soft running in the 50s and 60s systolic. 2 L of crystalloid and 2 units of O positive were initiated and a massive transfusion protocol was declared. Total of 4 units were ordered for packed red blood cells plus a platelet pack and a plasma pack. By the time the second unit of blood was in the patient's blood pressure had significantly improved to around 100-120 systolic. Central line was initiated. Patient tolerated this and met with Dr. Carrera. Her was known to Dr. Melgar and she would prefer Dr. Melgar when he comes back on duty. Eli was ca lled for to reverse her Eliquis. My current understanding of the literature is that tranexamic acid is not helpful in the case of GI bleed so we did not give this. Initial ECG Impression Date: Apr 27, 2020 Initial ECG Impression Time: 13:32 Initial ECG Rate: 77 Initial ECG Rhythm: Normal Sinus Initial ECG Intervals: Normal Initial ECG Impression: Normal Comment Normal sinus rhythm without clinically relevant ST elevation or depression. Diagnostic Imaging Diagonstic Imaging: Xray Plain Films/CT/US/NM/MRI: chest Comments Central line in good position in the superior vena cava without pneumothorax or other complication or crossing the midline. No acute cardiopulmonary process noted Reviewed: Reviewed by Me Critical Care Note Critical Care Start Time: 12:46 Stop Time: 14:31 Total Time (minutes) 105 mins Progress I attest to critical care in excess of 105 minutes, in excess of procedures including central line managing the patient's hypotension, anemia, consult to surgery, reversal of Eliquis and discussing risks, benefits and alternatives with the patient as well as starting Protonix drips, general medical management and obtaining records. Departure Communication (Admissions) Time/Spoke to Admitting Phy: 13:30 Discussed the case with Dr. Levi who came to the ER and visited with the patient and agrees to admit. Consult to surgery. Time/Spoke to Consulting Phy: 14:30 Discussed the case with Dr. Carrera who came to the ER and visit with the patient and agrees with current treatment plan and further transfusion of blood in the ICU. He has spoken to Dr. Melgar and plans to transfer care over to Dr. Melgar in the morning. Likely the patient will need repeat endoscopy. He agrees with pantoprazole drip. 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 Referrals: GORDO MAO MD (PCP/Family) Primary Care Physician JOSEY MARQUEZ Apr 27, 2020 13:38
--- NOTE | 2020-04-27 13:42 | NUR ---
VERBAL CONSENT TO PLACE CENTRAL LINE
[2020-04-27] MEDS ORDERED: PANTOPRAZOLE INJECTION 200 MG in NS (IVPB) 100 ML IV SCH ×2 (13:45→16:15)
[2020-04-27] MEDS ORDERED: PANTOPRAZOLE 40 MG (PROTONIX) VIAL IV ONE (13:45)
--- NOTE | 2020-04-27 13:45 | NUR ---
DR MARQUEZ TO ROOM EXPLAINED ALL RISK AND BENFITS OF CENTRAL LINE.
--- NOTE | 2020-04-27 13:45 | NUR ---
DR MARQUEZ TO ROOM TO PLACE CENTRAL LINE.
--- NOTE | 2020-04-27 13:49 | NUR ---
PATIENT REMAINS ALERT AND TALKING.
--- NOTE | 2020-04-27 14:00 | NUR ---
CENTRAL LINE PLACE CXR ORDER
--- NOTE | 2020-04-27 14:09 | NUR ---
CENTRAL LINE CLEAR TO USE PER DR MARQUEZ.
--- NOTE | 2020-04-27 14:17 | NUR ---
REMI UPDATE GIVEN.
--- NOTE | 2020-04-27 14:39 | Diagnostic Imaging Report ---
EXAMINATION: Chest 1 view. HISTORY: Post central line. COMPARISON: 05/14/2019 FINDINGS: The lungs are clear without edema or pneumonia. No pleural effusion or pneumothorax. Heart size is normal. Right internal jugular central venous catheter tip terminates in the superior vena cava. IMPRESSION: Clear lungs. Dictated by: Dictated on workstation # [id number]
--- NOTE | 2020-04-27 14:45 | NUR ---
DR FUENTES HERE
--- NOTE | 2020-04-27 15:12 | NUR ---
Shira stone in [facility] - 04/27/20 at 1623 by [email or web address] PATIENT HAD 2 UNITS OF BLOOD AND 1 UNIT OF FFP INFUSED
[2020-04-27 15:18] LABS: BILIRUBIN,URINE NEGATIVE (NEGATIVE); CLARITY,URINE CLEAR; COLOR,URINE YELLOW; GLUCOSE, URINE (UA) TRACE (NEGATIVE); KETONES,URINE NEGATIVE (NEGATIVE); LEUKOCYTE ESTERASE ,URINE NEGATIVE (NEGATIVE); NITRITE,URINE NEGATIVE (NEGATIVE); PROTEIN,URINE 2+ (NEGATIVE)
[2020-04-27 15:34] LABS: AMORPHOUS SEDIMENT,UR MOD AMOR URATES /LPF; BACTERIA,URINE FEW /HPF; HYALINE CASTS, URINE 25-50 /LPF
--- NOTE | 2020-04-27 15:37 | NUR ---
ON ADMIT PATIENT HAD A TOTAL OF 2 UNITS OF POS GIVEN 1 UNIT OF FFP ALERT AND TALKING FAMILY HAS BEEN UPDATE
[2020-04-27 15:40] LABS: EOSINOPHILS % (MANUAL) 1 %; LYMPHOCYTES % (MANUAL) 12 %; MONOCYTES % (MANUAL) 6 %; NEUTROPHILS % (MANUAL) 81 %; POLYCHROMASIA SLIGHT; STOMATOCYTES SLIGHT
--- NOTE | 2020-04-27 15:41 | History & Physical-Hospitalist ---
History of Present Illness HPI/Chief Complaint CC: GIB HPI: This is a 65yoWF clinic patient of [facility] who is known to me from prior admits who has a PMH of morbid obesity who was recently DC from after 04/13-04/22/20 and DC to [place] on Tuesday who presents to the ER with large amounts of bloody stools. Patient had a duodenal mass biopsy at and then restarted on OAC on 04/18/20. Patient is currently having a lot of chronic generalized pain but her SBP is 70 and cannot withstand any narcotics currently. I have reviewed meds and labs and records. [facility] notes: Today's Date: 04/22/2020 Admission Date: 04/13/2020 LOS: 9 days Assessment/Plan: 65 y.o. female with past medical history of morbid obesity, CAD status post stents ', HTN, A. fib, IDDM, HLD, hypothyroidism, COPD on 4 L nasal cannula at baseline. She presents to [facility] as a transfer with concern for acute gallstone pancreatitis. Endoscopic evaluation/ERCP revealed biliary sludge, and ulcerated duodenal mass. Biopsies were obtained, resulted as degenerated specimen with rare atypical cells, no overt sign of malignancy. Gastroenterology had recommended a repeat EGD with more tissue sampling to better evaluate the duodenal mass. On 04/17/2019 when she went for repeat EGD, the examination of the duodenum did not show previously seen duodenal wall mass despite of multiple examinations of the second portion. Hemoglobin appeared stable and JEWELRY BENCH MOLDER apixaban for A. fib was restarted 04/18. Interval Update 04/22/2020: > Continue to monitor off abx > Continue Eliquis, monitor Hb daily > Beginning SNF placement coordination for discharge Expect her to need follow-up EGD for this resolved duodenal mass Also need outpatient follow-up for a colonoscopy, as she has never been screened Follow-up with general surgery for cholecystectomy (requested) #Acute pancreatitis, resolved #Concern for cholangitis, resolved -1 week of waxing/waning right upper quadrant pain associated with meals Sudden worsening overnight now with pain radiating to the back, nausea/vomiting -Per outside records, lipase elevated at 1920 -CT abdomen/pelvis suspicious for gallstones -Lactic acid 11 on admission to previous emergency department -Patient reports she received 1 unit PRBC in the emergency department -Also received 1 L NS, metronidazole in the neighboring emergency department. -RUQ Abd US: Cholelithiasis and positive sonographic Alarcon's sign, suggestive of acute cholecystitis -T bili uptrending, transaminases uptrending, WBC count uptrending as of 04/14 - EUS 04/14 showed bile duct sludge and large, ulcerated submucosal mass in second portion of duodenum, measuring 31 x 27 mm. Biopsy and FNA x3 obtained. - ERCP 04/14 showed no distal filling defect suggestive of stone. Biliary sphincterotomy performed. Sludge extracted. PLAN > s/p Ceftriaxone 2 g daily, Flagyl 500 mg Q12hr for suspected cholangitis (x7 days, end 04/19) > Recommend cholecystectomy as outpatient, will coordinate at discharge - consult placed w/ General Surgery #Upper GI bleed #Acute blood loss anemia -Patient reports one episode of "dark stool" on Tuesday -S/p 1 unit PRBC at neighboring hospital -Most recent hemoglobin in the outside records = 7.9 -FOBT at outside hospital negative -EUS/ERCP findings above -likely source of bleed -Continue to hold AC for afib due to concern for active GI bleed -JEWELRY BENCH MOLDER apixiban contraindicated in setting of GI malignancy, may need to transition to lovenox eventually -04/16 Hb 7.2, transfused 1 unit PRBC (second unit) -04/17 repeat EGD: previously identified duodenal mass could not be located, consistent with edema and inflammation of the duodenum which has resolved PLAN > Transfusion goal 7 > EGD & colonoscopy follow up outpt > Restart JEWELRY BENCH MOLDER Eliquis, recheck CBC this afternoon #Diabetes -JEWELRY BENCH MOLDER's include Sitagliptin 100 mg, Glipizide 5 mg, Liraglutide -JEWELRY BENCH MOLDER insulin is Detemir 16 units nightly, Lispro 18 units TID AC PLAN > JEWELRY BENCH MOLDER meds on discharge #Insomnia - Difficulty sleeping due to stress of possible cancer diagnosis PLAN > JEWELRY BENCH MOLDER Trazodone on discharge #HTN -JEWELRY BENCH MOLDER's include lisinopril 5 mg daily, amlodipine 5 mg daily -Lisinopril held on admit pending labs, concern for possible TEMO PLAN > Continue amlodipine on discharge > Continue lisinopril 5mg daily on discharge #Morbid Obesity #HLD >JEWELRY BENCH MOLDER is atorvastatin 40 mg nightly, continue #GERD - JEWELRY BENCH MOLDER PPI > Pantoprazole 20mg BID #Hypothyroidism - TSH wnl PLAN > JEWELRY BENCH MOLDER levothyroxine 175 mcg QDAY, continue FEN: No IVF, diabetic diet, electrolytes reviewed, Diet NPO Prophalyxis: JEWELRY BENCH MOLDER Eliquis Code: Full code Disposition: Continue admission, floor, no telemetry, med [address] Umaña. Exam Limitations: clinical condition Date Seen 04/27/20 Time Seen by a Provider: 13:30 Attending Physician Janny Bliss DO PCP Jd Styles MD Referring Physician Date of Admission Apr 27, 2020 at 15:05 Home Medications & Allergies Home Medications Reviewed patient Home Medication Reconciliation performed by pharmacy medication reconciliations weld technician and/or nursing. Patients Allergies have been reviewed. Allergies Allergies Coded Allergies canagliflozin (Verified Allergy, Unknown, 04/23/19) Past Chktabi-Sbikiu-Qdbywg Hx Past Med/Social Hx: Reviewed Nursing Past Med/Soc Hx, Reviewed and Corrections made Patient Social History Marrital Status: single Employed/Student: unemployed Alcohol Use: Denies Use Recreational Drug Use: No Smoking Status: Never a Smoker Former Smoker, Quit: Nov 28, 2007 Type Used: Cigarettes Recent Foreign Travel: No Contact w/other who traveled: No Recent Infectious Disease Expo: No Immunizations Up To Date Date of Pneumonia Vaccine: Dec 26, 2018 Date of Influenza Vaccine: Apr 16, 2019 Past Medical History Surgeries: Coronary Stent Respiratory: COPD, Sleep Apnea Cardiac: Atrial Fibrillation, Coronary Artery Disease, High Cholesterol, Hypertension Neurological: Neuropathy Reproductive: No Genitourinary: Kidney Infection Gastrointestinal: Gastroesophageal Reflux Musculoskeletal: Arthritis Endocrine: Diabetes, Insulin dep, Hypothyroidsim Loss of Vision: Denies Family History Heart Disease, Diabetes, Hypertension Review of Systems Constitutional: see HPI Gastrointestinal: loss of appetite, melena Physical Exam Physical Exam Vital Signs Vital Signs - First Documented 04/27/20 12:48 Pulse 82 Resp 18 B/P (MAP) 107/91 (96) Pulse Ox 100 O2 Delivery Nasal Cannula O2 Flow Rate 2.00 Capillary Refill : Less Than 3 Seconds Height, Weight, BMI Height: 5'5.00" Weight: 380lbs. 0.0oz. [id number]; 60.00 BMI Method: General Appearance: No Apparent Distress, Chronically ill, Obese Eyes: Right Eye Normal Inspection, Right Eye PERRL HEENT: PERRL/EOMI, Normal ENT Inspection, Pharynx Normal, Moist Mucous Membranes Neck: Full Range of Motion, Normal Inspection, Non Tender Respiratory: Chest Non Tender, Lungs Clear, Normal Breath Sounds, No Accessory Muscle Use, No Respiratory Distress Cardiovascular: Regular Rate, Rhythm, No Edema, No Gallop, No JVD, No Murmur, Normal Peripheral Pulses Gastrointestinal: Normal Bowel Sounds, No Organomegaly, No Pulsatile Mass, Non Tender, Soft Back: Normal Inspection, No CVA Tenderness, No Vertebral Tenderness Extremity: Normal Capillary Refill, Normal Inspection, Normal Range of Motion, Non Tender, No Calf Tenderness, No Pedal Edema Neurologic/Psychiatric: Alert, Oriented x3, No Motor/Sensory Deficits, Normal Mood/Affect Skin: Normal Color, Warm/Dry Lymphatic: No Adenopathy Results Results/Procedures Labs Laboratory Tests 04/27/20 13:00 Patient resulted labs reviewed. Assessment/Plan Admission Diagnosis Assessment: GIB on OAC s/p duodenal mass bx with EGD likely not neoplastic at restarted on OAC 04/18/20 Acute blood loss anemia needing transfusions Cholelithiasis h/o pyelonephritis 04/2019: s/p hypovolemic shock s/p aggressive IVF and pressor therapy at [facility] [place] [place] ER ARF on CRI AF Morbid obesity OHS DM Hypothyroidism HTN Plan: ICU Surgery evaluation Monitor BP Pain control Transfuse Admission Status: Inpatient Order (span 2 midnights) Reason for Inpatient Admission: gib Diagnosis/Problems Diagnosis/Problems (1) Shocks, hemorrhagic Status: Acute (2) GI bleed Status: Acute Qualifiers: GI bleed type/associated pathology: unspecified gastrointestinal hemorrhage type Qualified Codes: K92.2 - Gastrointestinal hemorrhage, unspecified (3) 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
--- NOTE | 2020-04-27 15:48 | Consultation - Surgery ---
YEN ALAMO MED STUDENT 04/27/20 1548: History of Present Illness History of Present Illness Patient Consulted On(eyad/time) 04/27/20 15:41 Date Seen by Provider: Apr 27, 2020 Time Seen by Provider: 15:43 History of Present Illness Pt is a 65 yr old F presenting with hypotension, blood per rectum, and lower abdominal cramping. Pt notes symptoms began this evening. Pt describes having a loose bowel movements and when she got up from the recliner, noticed blood in the seat. Pt discharged 5 days ago from [facility] for gallbladder and GI bleed work up. Pt was told by she had gallstones and would need a cholecystectomy. Pt requesting Dr. Melgar for surgical needs. Pt was transfused 1 unit of blood at for anemia. Received total 4 units PRBC, 1 platelet pack, and [address] Jeffries. Allergies and Home Medications Allergies Coded Allergies: canagliflozin (Verified Allergy, Unknown, 04/23/19) Home Medications Acetaminophen 500 Mg Tablet, 1,000 MG PO Q4H PRN for PAIN-MILD (1-4), (Reported) Amlodipine Besylate 5 Mg Tablet, 5 MG PO DAILY, (Reported) Apixaban 5 Mg Tablet, 5 MG PO BID, (Reported) Aspirin 81 Mg Tablet.dr, 81 MG PO HS, (Reported) Atorvastatin Calcium 40 Mg Tablet, 40 MG PO HS, (Reported) Bisacodyl 5 Mg Tablet.dr, 5-10 MG PO PRN PRN for CONSTIPATION-3RD LINE, (Reported) Ciprofloxacin HCl 500 Mg Tablet, 500 MG PO BID Prescribed by: ANA LUISA JOHNSON on 01/07/20 1201 Cyclobenzaprine HCl 10 Mg Tablet, 10 MG PO BID PRN for MUSCLE SPASMS, (Reported) Gabapentin 600 Mg Tablet, 600 MG PO TID, (Reported) Glipizide 5 Mg Tab.er.24, 10 MG PO DAILY, (Reported) TAKES 2 (5MG) TABLETS Levothyroxine Sodium 175 Mcg Tablet, 175 MCG PO DAILY, (Reported) Lisinopril 5 Mg Tablet, 5 MG PO 1800, (Reported) Multivitamin 1 Each Tablet, 1 TAB PO 1600, (Reported) Dewar-3 Fatty Acids/Fish Oil 1 Each Capsule, 1,200 MG PO BID, (Reported) Omeprazole 20 Mg Capsule.dr, 20 MG PO BID, (Reported) Polyethylene Glycol 3350 17 Gm Powd.pack, 17 GM PO DAILY PRN for CONSTIPATION- 2ND LINE, (Reported) Sitagliptin Phosphate 100 Mg Tablet, 100 MG PO DAILY, (Reported) Tramadol HCl 50 Mg Tablet, 50 MG PO Q6H PRN for PAIN-MODERATE (5-7), (Reported) Past Kqoslep-Ddixyz-Qoyxgg Hx Patient Social History Smoking Status: Never a Smoker Former Smoker, Quit: Nov 28, 2007 Type Used: Cigarettes Immunizations Up To Date Date of Pneumonia Vaccine: Dec 26, 2018 Date of Influenza Vaccine: Apr 16, 2019 Surgeries History of Surgeries: Yes Surgeries: Coronary Stent Respiratory History of Respiratory Disorde: Yes Respiratory Disorders: Sleep Apnea Cardiovascular History of Cardiac Disorders: Yes Cardiac Disorders: Coronary Artery Disease, High Cholesterol, Hypertension Neurological History of Neurological Disord: Yes Neurological Disorders: Neuropathy Reproductive System Hx Reproductive Disorders: No Genitourinary History of Genitourinary Disor: Yes Genitourinary Disorders: Kidney Infection Gastrointestinal History of Gastrointestinal Di: Yes Gastrointestinal Disorders: Gastroesophageal Reflux Musculoskeletal History of Musculoskeletal Dis: Yes Musculoskeletal Disorders: Arthritis Endocrine History of Endocrine Disorders: Yes Endocrine Disorders: Diabetes, Insulin dep, Hypothyroidsim HEENT History of HEENT Disorders: No Loss of Vision: Denies Cancer History of Cancer: No Psychosocial History of Psychiatric Problem: No Integumentary History of Skin or Integumenta: Yes (changes under her pannus) Family Medical History Significant Family History: Heart Disease, Diabetes, Hypertension Physical Exam-General Problems Physical Exam Vital Signs Vital Signs - First Documented 04/27/20 12:48 Pulse 82 Resp 18 B/P (MAP) 107/91 (96) Pulse Ox 100 O2 Delivery Nasal Cannula O2 Flow Rate 2.00 Capillary Refill : Less Than 3 Seconds General Appearance: WD/WN, no apparent distress, obese HEENT: PERRL/EOMI Neck: supple, normal inspection Respiratory: normal breath sounds, no respiratory distress, no accessory muscle use Cardiovascular: regular rate, rhythm Gastrointestinal: non tender, soft, hernia (umbilical) Rectal: deferred, other (Blood per rectum) Back: No no CVA tenderness, No no vertebral tenderness Extremities: pedal edema, swelling Neurologic/Psychiatric: no motor/sensory deficits, alert, normal mood/affect, oriented x 3 Skin: normal color, warm/dry Lymphatic: no adenopathy Data Review Labs Laboratory Tests 04/27/20 13:00: White Blood Count 26.3H, Red Blood Count 2.71L, Hemoglobin 8.2L, Hematocrit 27L, Mean Corpuscular Volume 100H, Mean Corpuscular Hemoglobin 30, Mean Corpuscular Hemoglobin Concent 30L, Red Cell Distribution Width 18.6H, Platelet Count 596H, Mean Platelet Volume 9.8, Immature Granulocyte % (Auto) 1, Neutrophils (%) (Auto) 82H, Lymphocytes (%) (Auto) 12, Monocytes (%) (Auto) 5, Eosinophils (%) (Auto) 0, Basophils (%) (Auto) 0, Neutrophils # (Auto) 21.5H, Lymphocytes # (Auto) 3.1, Monocytes # (Auto) 1.3H, Eosinophils # (Auto) 0.1, Basophils # (Auto) 0.1, Immature Granulocyte # (Auto) 0.4H, Neutrophils % (Manual) 81, Lymphocytes % (Manual) 12, Monocytes % (Manual) 6, Eosinophils % (Manual) 1, Polychromasia SLIGHT, Stomatocytes SLIGHT, Sodium Level 132L, Potassium Level 5.7H, Chloride Level 99, Carbon Dioxide Level 20L, Anion Gap 13, Blood Urea Nitrogen 20H, Creatinine 1.26, Estimat Glomerular Filtration Rate 42, BUN/Creatinine Ratio 16, Glucose Level 419*H, Calcium Level 8.6, Corrected Calcium 9.4, Total Bilirubin 0.6, Aspartate Amino Transf (AST/SGOT) 25, Alanine Aminotransferase (ALT/SGPT) 31, Alkaline Phosphatase 157H, Troponin I < 0.028, Total Protein 6.8, Albumin 3.0L 04/27/20 15:09: Urine Color YELLOW, Urine Clarity CLEAR, Urine pH 6.0, Urine Specific [place] 1.025H, Urine Protein 2+H, Urine Glucose (UA) TRACEH, Urine Ketones NEGATIVE, Urine Nitrite NEGATIVE, Urine Bilirubin NEGATIVE, Urine Urobilinogen 0.2, Urine Leukocyte Esterase NEGATIVE, Urine RBC (Auto) NEGATIVE, Urine RBC NONE, Urine WBC 10-25H, Urine Squamous Epithelial Cells 5-10, Urine Crystals PRESENTH, Urine Amorphous Sediment MOD LILIAM URATESH, Urine Bacteria FEWH, Urine Casts PRESENT, Urine Hyaline Casts 25-50H, Urine Mucus NEGATIVE, Urine Culture Indicated YES 04/27/20 15:18: Glucometer 265H Assessment/Plan Assessment/Plan Assessment/Plan Anemia - Hgb 8.2 post transfusion GI bleed Hypotension FDC anticoagulant use (Eliquis) Cholelithiasis 4 total units PRBC/ 1 platelet pack/ 1 plasma pack transfused in ER Transfuse as necessary NPO Repeat endoscopy Pt requesting Dr. Melgar for surgical needs Consult requested by ZECHARIAH Mar DO 04/27/201924: History of Present Illness History of Present Illness History of Present Illness As above, patient knows Dr. Melgar he has agreed to see her in consultation. Allergies and Home Medications Allergies Coded Allergies: canagliflozin (Verified Allergy, Unknown, 04/23/19) Home Medications Acetaminophen 500 Mg Tablet, 1,000 MG PO Q4H PRN for PAIN-MILD (1-4), (Reported) Amlodipine Besylate 5 Mg Tablet, 5 MG PO DAILY, (Reported) Apixaban 5 Mg Tablet, 5 MG PO BID, (Reported) Aspirin 81 Mg Tablet.dr, 81 MG PO HS, (Reported) Atorvastatin Calcium 40 Mg Tablet, 40 MG PO HS, (Reported) Bisacodyl 5 Mg Tablet.dr, 5-10 MG PO PRN PRN for CONSTIPATION-3RD LINE, (Reported) Ciprofloxacin HCl 500 Mg Tablet, 500 MG PO BID Prescribed by: ANA LUISA JOHNSON on 01/07/20 1201 Cyclobenzaprine HCl 10 Mg Tablet, 10 MG PO BID PRN for MUSCLE SPASMS, (Reported) Gabapentin 600 Mg Tablet, 600 MG PO TID, (Reported) Glipizide 5 Mg Tab.er.24, 10 MG PO DAILY, (Reported) TAKES 2 (5MG) TABLETS Levothyroxine Sodium 175 Mcg Tablet, 175 MCG PO DAILY, (Reported) Lisinopril 5 Mg Tablet, 5 MG PO 1800, (Reported) Multivitamin 1 Each Tablet, 1 TAB PO 1600, (Reported) Dewar-3 Fatty Acids/Fish Oil 1 Each Capsule, 1,200 MG PO BID, (Reported) Omeprazole 20 Mg Capsule.dr, 20 MG PO BID, (Reported) Polyethylene Glycol 3350 17 Gm Powd.pack, 17 GM PO DAILY PRN for CONSTIPATION- 2ND LINE, (Reported) Sitagliptin Phosphate 100 Mg Tablet, 100 MG PO DAILY, (Reported) Tramadol HCl 50 Mg Tablet, 50 MG PO Q6H PRN for PAIN-MODERATE (5-7), (Reported) Patient Home Medication List Home Medication List Reviewed: Yes Assessment/Plan Assessment/Plan Assessment/Plan Dr. Melgar agreed to evaluate and manage as patient requested. Supervisory-Addendum Brief Verification & Attestation Participated in pt care: history Personally performed: history Care discussed with: Medical Student Procedures: n/a Verification and Attestation of Medical Student E/M Service A medical student performed and documented this service in my presence. I reviewed and verified all information documented by the medical student and made modifications to such information, when appropriate. Patient requesting Dr. Melgar, he has agreed to consult and manage as patient has requested. Zechariah Fuentes, Apr 27, 2020,19:23 YEN ALAMO MED STUDENT Apr 27, 2020 15:48 ZECHARIAH FUENTES DO Apr 27, 2020 19:25
[2020-04-27] MEDS ORDERED: LORazepam INJ 2 MG/ML (ATIVAN) VIAL IV PRN (16:00)
[2020-04-27] MEDS: LACTATED RINGERS 1,000 ML IV SCH ×2 (16:06→20:17)
[2020-04-27] MEDS ORDERED: ONDANSETRON 4 MG/2 ML (SDV) Z0FRAN IV PRN (16:15)
[2020-04-27] MEDS ORDERED: PROMETHAZINE INJ 25 MG/ML (PHENERGAN) AMP IV PRN (16:15)
--- NOTE | 2020-04-27 16:52 | CONSULTATION REPORT ---
DATE OF SERVICE: ATTENDING PRIMARY CARE PHYSICIAN: Dr. Jd Styles. ADMITTING PHYSICIAN: Dr. Levi. HISTORY OF PRESENT ILLNESS: The patient is a 65-year-old female with an extensive past medical history. She presented to the Emergency Department with fatigue and was found to be hypotensive. She also had reported some crampy abdominal pain as well as blood per rectum. She reports that she has had loose bowel movements and did not notice bright red blood per rectum. She was recently discharged from [facility] approximately five days ago for gallbladder workup as well as a gastrointestinal workup. At [facility], she was transfused a total of 4 units of packed red blood cells. Upon admission today, her hemoglobin is 8.1. She also does have a leukocytosis with a white count of 26.3. BUN is 5 and creatinine is 1.26. Upon further questioning, she does have issues with gastroesophageal reflux disease as well as diabetes, hypercholesterolemia and coronary artery disease and is on anticoagulation with apixaban 5 mg b.i.d. as well as aspirin 81 mg daily. She has a high surgical risk due to her body mass index as well. PAST MEDICAL HISTORY: Coronary artery disease, hypercholesterolemia, hypertension, sleep apnea, chronic kidney infections, gastroesophageal reflux disease, degenerative joint disease, insulin-dependent diabetes and hypothyroid. PAST SURGICAL HISTORY: Cardiac catheterization and stent placement. ALLERGIES: CANAGLIFLOZIN. MEDICATIONS: Amlodipine 5 mg daily, apixaban 5 mg b.i.d., aspirin 81 mg daily, atorvastatin 40 mg daily, ciprofloxacin 500 mg b.i.d., cyclobenzaprine 10 mg b.i.d. p.r.n., gabapentin 600 mg t.i.d., glipizide 5 mg daily, levothyroxine 175 mcg daily, lisinopril 5 mg daily, omeprazole 20 mg b.i.d., MiraLax p.r.n., sitagliptin 100 mg daily and tramadol p.r.n. SOCIAL HISTORY: Previous smoker, quit 2007. Negative alcohol. FAMILY HISTORY: Noncontributory. REVIEW OF SYSTEMS: This is a well-nourished female currently guarded secondary to crampy abdominal pain. She is not experiencing any shortness of breath or difficulty breathing. No chest pain, palpitations or diaphoresis. No nausea, vomiting. No hematemesis and no coffee ground emesis. No fever, chills, no recent inadvertent weight loss. No new cough or sputum production. All other review of systems negative. PHYSICAL EXAMINATION: VITAL SIGNS: Blood pressure 107/91, pulse 82, respirations 18 and pulse ox 100% on 2 liters nasal cannula. CHEST: Decreased breath sounds in bilateral bases. HEART: Regular and no murmurs. EXTREMITIES: +1/3 bilateral lower extremity edema. Negative Homans sign. HEENT: No scleral icterus. NECK: No cervical lymphadenopathy. ABDOMEN: Soft and nondistended. There is a mild discomfort in the lower abdominal quadrants upon deep palpation. There are no peritoneal signs. No hernias. SKIN: Warm and dry. LABORATORY DATA: WBC 26.3, hemoglobin 8.2, hematocrit 27, platelets 596, BUN 20, creatinine 1.26 and glucose is 419. Liver function enzymes are normal except for a slight elevation of alkaline phosphatase at 157. ASSESSMENT AND PLAN: A 65-year-old female with multiple medical problems; however, the pending issues at this time appear to be crampy abdominal pain, leukocytosis as well as lower gastrointestinal bleeding. On this admission, we will likely proceed with upper and lower endoscopy, resuscitation with blood and blood products as well as to search for the cause of her leukocytosis and treat appropriately. Job ID: [id number] DocumentID: [id number] Dictated Date: 04/27/2020 16:02:27 Removable Prosthodontist Date: 04/27/2020 16:52:12 Dictated By: ELE MUÑIZ MD
[2020-04-27] MEDS: inSUlin (REGULAR) HUMAN 1 UNIT/0.01 ML (CHARGE PER UNIT) SC SCH (17:28)
[2020-04-27 19:49] LABS: HEMOGLOBIN 8.7 g/dL (11.5-16.0)
[2020-04-27] MEDS ORDERED: inSUlin ASPART (NovoLOG) 1 UNIT/0.01 ML (CHARGE PER UNIT) SC SCH (21:00)
[2020-04-27] MEDS: fentaNYL INJECTION 100 MCG/2 ML AMP IV PRN (23:20)
[2020-04-28] VITALS (21 sets, daily range): BP systolic 110–156; BP diastolic 51–93
[2020-04-28] MEDS: inSUlin (REGULAR) HUMAN 1 UNIT/0.01 ML (CHARGE PER UNIT) SC SCH
[2020-04-28] MEDS: LACTATED RINGERS 1,000 ML IV SCH ×5 (00:04→23:17)
[2020-04-28 03:00] LABS: BASOPHILS # (AUTO) 0.1 10^3/uL (0.0-0.1); BASOPHILS % (AUTO) 0 % (0-10); EOSINOPHILS # (AUTO) 0.1 10^3/uL (0.0-0.3); EOSINOPHILS % (AUTO) 1 % (0-10); HEMATOCRIT 27 % (35-52); HEMOGLOBIN 8.5 g/dL (11.5-16.0); LYMPHOCYTES # (AUTO) 3.7 10^3/uL (1.0-4.0); LYMPHOCYTES % (AUTO) 25 % (12-44); MEAN CORPUSCULAR HEMOGLOBIN 30 pg (25-34); MEAN CORPUSCULAR HGB CONC 32 g/dL (32-36); MEAN CORPUSCULAR VOLUME 94 fL (80-99); MEAN PLATELET VOLUME 9.7 fL (9.0-12.2); MONOCYTES # (AUTO) 0.8 10^3/uL (0.0-1.0); MONOCYTES % (AUTO) 6 % (0-12); NEUTROPHILS % (AUTO) 68 % (42-75); PLATELET COUNT 391 10^3/uL (130-400); WHITE BLOOD COUNT 14.8 10^3/uL (4.3-11.0)
[2020-04-28 03:18] LABS: CHLORIDE 102 MMOL/L (98-107); POTASSIUM 4.7 MMOL/L (3.6-5.0); SODIUM 137 MMOL/L (135-145)
[2020-04-28 03:19] LABS: CALCIUM 8.4 MG/DL (8.5-10.1)
[2020-04-28 03:20] LABS: GLUCOSE 210 MG/DL (70-105)
[2020-04-28 03:21] LABS: CARBON DIOXIDE 25 MMOL/L (21-32)
[2020-04-28 03:24] LABS: CREATININE SERUM 0.82 MG/DL (0.60-1.30); GFR ESTIMATED > 60; PHOSPHORUS 3.2 MG/DL (2.3-4.7)
[2020-04-28 03:25] LABS: BUN/CREATININE RATIO 29
[2020-04-28 03:26] LABS: MAGNESIUM 1.8 MG/DL (1.6-2.4)
--- NOTE | 2020-04-28 05:13 | Pulmonary Consultation ---
History of Present Illness History of Present Illness Date Seen by Provider: Apr 28, 2020 Time Seen by Provider: 05:07 Date of Admission Allergies and Home Medications Allergies Coded Allergies: canagliflozin (Verified Allergy, Unknown, 04/23/19) Home Medications Acetaminophen 500 Mg Tablet, 1,000 MG PO Q4H PRN for PAIN-MILD (1-4), (Reported) Amlodipine Besylate 5 Mg Tablet, 5 MG PO DAILY, (Reported) Apixaban 5 Mg Tablet, 5 MG PO BID, (Reported) Aspirin 81 Mg Tablet.dr, 81 MG PO HS, (Reported) Atorvastatin Calcium 40 Mg Tablet, 40 MG PO HS, (Reported) Bisacodyl 5 Mg Tablet.dr, 5-10 MG PO PRN PRN for CONSTIPATION-3RD LINE, (Reported) Ciprofloxacin HCl 500 Mg Tablet, 500 MG PO BID Prescribed by: ANA LUISA JOHNSON on 01/07/20 1201 Cyclobenzaprine HCl 10 Mg Tablet, 10 MG PO BID PRN for MUSCLE SPASMS, (Reported) Gabapentin 600 Mg Tablet, 600 MG PO TID, (Reported) Glipizide 5 Mg Tab.er.24, 10 MG PO DAILY, (Reported) TAKES 2 (5MG) TABLETS Levothyroxine Sodium 175 Mcg Tablet, 175 MCG PO DAILY, (Reported) Lisinopril 5 Mg Tablet, 5 MG PO 1800, (Reported) Multivitamin 1 Each Tablet, 1 TAB PO 1600, (Reported) [place]-3 Fatty Acids/Fish Oil 1 Each Capsule, 1,200 MG PO BID, (Reported) Omeprazole 20 Mg Capsule.dr, 20 MG PO BID, (Reported) Polyethylene Glycol 3350 17 Gm Powd.pack, 17 GM PO DAILY PRN for CONSTIPATION- 2ND LINE, (Reported) Sitagliptin Phosphate 100 Mg Tablet, 100 MG PO DAILY, (Reported) Tramadol HCl 50 Mg Tablet, 50 MG PO Q6H PRN for PAIN-MODERATE (5-7), (Reported) Past Hmrkwmz-Rvlzqk-Cyhlrx Hx Past Med/Social Hx: Reviewed Nursing Past Med/Soc Hx, Reviewed and Corrections made Patient Social History Alcohol Use: Denies Use Smoking Status: Never a Smoker Type Used: Cigarettes Former Smoker, Quit: Nov 28, 2007 Recent Infectious Disease Expo: No Immunizations Up To Date Date of Pneumonia Vaccine: Dec 26, 2018 Date of Influenza Vaccine: Jan 16, 2020 Past Medical History Surgeries: Yes Coronary Stent Respiratory: Yes Sleep Apnea Cardiac: Yes Atrial Fibrillation, Coronary Artery Disease, High Cholesterol, Hypertension Neurological: Yes Neuropathy Reproductive Disorders: No Genitourinary: Yes Kidney Infection Gastrointestinal: Yes Gastroesophageal Reflux Musculoskeletal: Yes Arthritis Endocrine: Yes Diabetes, Insulin dep, Hypothyroidsim HEENT: No Loss of Vision: Denies Cancer: No Psychosocial: No Integumentary: Yes (changes under her pannus) Family Medical History Heart Disease, Diabetes, Hypertension Review of Systems Time Seen by Provider: 05:07 Sepsis Event Evaluation Height, Weight, BMI Height: 5'5.00" Weight: 380lbs. 0.0oz. [id number]; 60.75 BMI Method: Exam Exam Vital Signs Date Time Temp Pulse Resp B/P (MAP) Pulse Ox O2 Delivery O2 Flow Rate FiO2 04/28/20 04:00 68 10 113/51 (71) 97 Nasal Cannula 2.00 04/28/20 03:00 69 23 137/65 (89) 97 Nasal Cannula 2.00 04/28/20 02:00 80 15 135/74 (94) 100 Nasal Cannula 2.00 04/28/20 01:10 71 04/28/20 01:00 65 33 135/62 (86) 99 Nasal Cannula 2.00 04/28/20 00:00 77 23 129/60 (83) 98 Nasal Cannula 2.00 04/27/20 23:00 72 131/57 (81) 98 Nasal Cannula 2.00 04/27/20 22:00 70 131/56 (81) 97 Nasal Cannula 2.00 04/27/20 21:00 71 25 141/60 (87) 96 Nasal Cannula 2.00 04/27/20 20:00 71 17 114/53 (73) 97 Nasal Cannula 2.00 04/27/20 19:31 96 Nasal Cannula 2.00 04/27/20 19:00 76 36 117/56 (76) 98 Nasal Cannula 2.00 04/27/20 19:00 76 04/27/20 18:00 73 25 130/65 (86) 98 Nasal Cannula 2.00 04/27/20 17:03 68 04/27/20 17:00 68 31 141/80 (100) 99 Nasal Cannula 2.00 04/27/20 16:15 75 31 131/78 (95) 98 Nasal Cannula 2.00 04/27/20 15:37 70 18 122/69 72 Nasal Cannula 2.00 04/27/20 15:31 98 Nasal Cannula 2.00 04/27/20 15:09 74 18 137/57 (83) 95 04/27/20 13:47 74 104/41 (62) 04/27/20 13:36 76 18 91/39 (56) 99 Room Air 04/27/20 12:48 82 18 107/91 (96) 100 Nasal Cannula 2.00 I & O 04/28/20 07:00 Intake Total 3178 ml Output Total 875 ml Balance 2303 ml Height & Weight Height: 5'5.00" Weight: 380lbs. 0.0oz. 172.864226mf; 60.75 BMI Method: General Appearance: No Apparent Distress, Chronically ill, Obese HEENT: PERRL/EOMI, Normal ENT Inspection, Pharynx Normal, Moist Mucous Membranes Neck: Full Range of Motion, Normal Inspection, Non Tender Respiratory: Chest Non Tender, Lungs Clear, Normal Breath Sounds, No Accessory Muscle Use, No Respiratory Distress Cardiovascular: Regular Rate, Rhythm, No Edema, No Gallop, No JVD, No Murmur, Normal Peripheral Pulses Capillary Refill: Less Than 3 Seconds Peripheral Pulses: 2+ Radial Pulses (R), 2+ Radial Pulses (L) Gastrointestinal: non tender, soft, hernia (umbilical) Extremity: Normal Capillary Refill, Normal Inspection, Normal Range of Motion, Non Tender, No Calf Tenderness, No Pedal Edema Neurologic/Psychiatric: Alert, Oriented x3, No Motor/Sensory Deficits, Normal Mood/Affect Skin: Normal Color, Warm/Dry Lymphatic: No Adenopathy Results Lab Laboratory Tests 04/27/20 13:00 04/27/20 19:05 04/28/20 02:35 Assessment/Plan Assessment/Plan Acute and recurrent GIB s/p Duodenal mass s/p bx at [facility] -Monitor hb -s/p 2 units of PRBC -Pt was on Eliquis at home -Surgery is following -Pt is currently protonix gtt -Change to Protonix Q12 IV -Change LR to 150cc/hr for now Cholelithiasis IDDM -Continue Insulin Hx of pyelonephritis chronic renal failure -Monitor Morbid obesity DM HTN RUBENS TRUJILLO DO Apr 28, 2020 05:13
[2020-04-28] MEDS ORDERED: POTASSIUM CL 10MEQ/50ML IVPB 50 ML IV SCH (06:00)
[2020-04-28] MEDS ORDERED: KCL 20 MEQ TAB (K-DUR) PO SCH (06:00)
[2020-04-28] MEDS ORDERED: MAGNESIUM 1 GM/100 ML IVPB 100 ML IV SCH (06:00)
[2020-04-28] MEDS: inSUlin ASPART (NovoLOG) 1 UNIT/0.01 ML (CHARGE PER UNIT) SC SCH ×4 (06:39→21:52)
[2020-04-28 07:16] LABS: HEMOGLOBIN 8.3 g/dL (11.5-16.0)
--- NOTE | 2020-04-28 07:45 | Diagnostic Imaging Report ---
Indication: Septic shock and GI bleed. Time of exam: 2:08 AM Correlation is made with prior chest one day earlier. Right IJ line has tip overlying the SVC. Lungs are clear. There is no infiltrate or effusion. No pneumothorax is detected. Heart size is stable. Impression: No acute cardiopulmonary processes detected. Dictated by: Dictated on workstation # [id number]
[2020-04-28] MEDS ORDERED: IOHEXOL 350 MG/ML 100 ML (OMNIPAQUE 350) VIAL IV ONE (09:00)
[2020-04-28] MEDS ORDERED: NS 100 ML (IVPB) BAG IV ONE (09:00)
[2020-04-28] MEDS ORDERED: CATHETER FLUSH 10 ML SYR IV PRN (09:00)
[2020-04-28] MEDS ORDERED: PANTOPRAZOLE 40 MG (PROTONIX) VIAL IV SCH (09:00)
[2020-04-28] MEDS ORDERED: HOLD METFORMIN - RECEIVED CONTRAST 20 ML VIAL IV SCH (09:00)
[2020-04-28] MEDS ORDERED: MELA5TAB14 PO (09:32)
[2020-04-28] MEDS ORDERED: PANT20TA18 PO (09:32)
[2020-04-28] MEDS ORDERED: INSU100I10 SQ (09:32)
[2020-04-28] MEDS ORDERED: GLUC100016 PO (09:32)
[2020-04-28] MEDS ORDERED: INSU100I14 SQ ×2 (09:50)
--- NOTE | 2020-04-28 09:51 | NUR ---
MED REC WAS ENTERED USING THE MAR FROM [facility] THERE ARE MULTIPLE MEDICATIONS SHOWING ON THE EXT MED HISTORY BUT ARE NOT LISTED ON [facility] MAR- I CALLED THE FACILITY AND WAS TOLD THAT THE PT WAS RECENTLY AT AND THERE WERE QUITE A FEW HOME MEDS THAT WERE DISCONTINUED- CYCLOBENZAPRINE, GLIPIZIDE, TRAMADOL, JANUVIA, ATORVASTATIN, GABAPENTIN AND VICTOZA
--- NOTE | 2020-04-28 10:04 | Diagnostic Imaging Report ---
PROCEDURE: CT abdomen and pelvis with and without contrast. TECHNIQUE: Precontrast acquisitions were acquired through the abdomen and pelvis. Multiple contiguous axial images were obtained through the abdomen and pelvis after the administration of intravenous contrast. Auto Exposure Controls were utilized during the CT exam to meet ALARA standards for radiation dose reduction. DATE: April 28, 2020. COMPARISON: None. INDICATION: 65-year-old female, abdominal pain and rectal bleeding. Leukocytosis. FINDINGS: The visualized portions of the lung bases are clear. The heart is not enlarged. There is no identified pericardial effusion. The liver is unremarkable in size and contour. There is no identified liver lesion. There is quantum mottle artifact limiting assessment of the liver. There is motion artifact and quantum mottle artifact at the level of the gallbladder. There is abnormal gas attenuation at the expected location of the gallbladder with probable abnormal gallbladder wall thickening. The common bile duct is difficult to identify. There is no intrahepatic bile duct dilation. The main pancreatic duct is not grossly dilated. There is fatty replacement of the pancreatic parenchyma at the level of the pancreatic head and pancreatic body. The spleen is normal in size. The adrenal glands are unremarkable. There is a low-attenuation right renal lesion on axial image 54 measuring 2.1 cm in size with internal attenuation of 37 Hounsfield units on both pre and post contrast imaging. This is a nonenhancing lesion, compatible with a benign cyst. There is a 12 mm nonenhancing right renal lesion on axial image 51, also compatible with a benign cyst. There is a 7 mm right renal lesion on axial image 43, too small to characterize. There is a benign left renal cyst on axial image 43 measuring 1.8 cm in size. The urinary collecting systems are not distended. There is no identified renal or ureteral stone. There is a Mack catheter within a collapsed urinary bladder. The urinary bladder is otherwise not well evaluated. There is a low-attenuation left adnexal lesion on axial image 76 measuring up to maximally 2.4 cm in size. This may reflect an ovarian cyst although is not well classified on CT. The intestinal tract is not distended. There is a fat-containing right anterior abdominal wall hernia. There is no free intraperitoneal air. There is no drainable fluid collection. There is no free pelvic fluid. There are atherosclerotic calcifications. There is no identified abnormally enlarged lymph node in the abdomen or pelvis which meets CT size criteria for adenopathy. There is severe osteoarthritis of the right hip. There are multilevel degenerative changes of the spine. There is no identified acute bony abnormality. IMPRESSION: 1. Abnormal gas attenuation in the expected location of the gallbladder with suspected gallbladder wall thickening. There is motion and quantum mottle artifact at this level. Recommend correlation with past surgical history and specifically for whether or not prior cholecystectomy has been performed. Differential diagnostic considerations would include acute cholecystitis without CT apparent gallstone. If the gallbladder is surgically absent, this may relate to a nonspecific fluid collection including the possibility of an abscess. Further evaluation with right upper quadrant abdominal ultrasound may be of benefit. 2. The common bile duct is not well seen. No intrahepatic biliary ductal dilation. 3. Benign renal cysts. 4. Fat-containing right anterior abdominal wall hernia. Dictated by: Dictated on workstation # [id number]
--- NOTE | 2020-04-28 13:22 | Progress Note ---
Subjective Subjective/Events-last exam Afebrile, patient reports she is feeling quite well today and denies any more blood per rectum. Objective Exam Last Set of Vital Signs Vital Signs Date Time Temp Pulse Resp B/P (MAP) Pulse Ox O2 Delivery O2 Flow Rate FiO2 04/28/20 12:00 70 21 145/68 (93) 100 Nasal Cannula 2.00 04/28/20 04:00 36.6 Capillary Refill : Less Than 3 Seconds I&O Intake and Output 04/28/20 00:00 Intake Total 3178 ml Output Total 675 ml Balance 2503 ml Intake Oral 0 ml IV Total 3000 ml Other 178 ml Output Urine Total 675 ml General: Alert, No Acute Distress Lungs: Clear to Auscultation, Normal Air Movement Heart: Regular Rate, Other (4/6 systolic murmur) Abdomen: Normal Bowel Sounds, Soft Extremities: No Edema Skin: Other (dry, scaly legs) Neuro: Normal Speech Psych/Mental Status: Mental Status NL Results/Procedures Lab Laboratory Tests 04/27/20 15:09: Urine Color YELLOW, Urine Clarity CLEAR, Urine pH 6.0, Urine Specific [place] 1.025H, Urine Protein 2+H, Urine Glucose (UA) TRACEH, Urine Ketones NEGATIVE, Urine Nitrite NEGATIVE, Urine Bilirubin NEGATIVE, Urine Urobilinogen 0.2, Urine Leukocyte Esterase NEGATIVE, Urine RBC (Auto) NEGATIVE, Urine RBC NONE, Urine WBC 10-25H, Urine Squamous Epithelial Cells 5-10, Urine Crystals PRESENTH, Urine Amorphous Sediment MOD LILIAM URATESH, Urine Bacteria FEWH, Urine Casts PRESENT, Urine Hyaline Casts 25-50H, Urine Mucus NEGATIVE, Urine Culture Indicated YES 04/27/20 15:18: Glucometer 265H 04/27/20 16:56: Glucometer 263H 04/27/20 19:05: Hemoglobin 8.7L, Hematocrit 28L 04/27/20 20:26: Glucometer 189H 04/28/20 00:33: Glucometer 218H 04/28/20 02:35: White Blood Count 14.8H, Red Blood Count 2.86L, Hemoglobin 8.5L, Hematocrit 27L, Mean Corpuscular Volume 94, Mean Corpuscular Hemoglobin 30, Mean Corpuscular Hemoglobin Concent 32, Red Cell Distribution Width 17.5H, Platelet Count 391, Mean Platelet Volume 9.7, Immature Granulocyte % (Auto) 1, Neutrophils (%) (Auto) 68, Lymphocytes (%) (Auto) 25, Monocytes (%) (Auto) 6, Eosinophils (%) ( Auto) 1, Basophils (%) (Auto) 0, Neutrophils # (Auto) 10.0H, Lymphocytes # (Auto) 3.7, Monocytes # (Auto) 0.8, Eosinophils # (Auto) 0.1, Basophils # (Auto) 0.1, Immature Granulocyte # (Auto) 0.1, Sodium Level 137, Potassium Level 4.7, Chloride Level 102, Carbon Dioxide Level 25, Anion Gap 10, Blood Urea Nitrogen 24H, Creatinine 0.82, Estimat Glomerular Filtration Rate > 60, BUN/Creatinine Ratio 29, Glucose Level 210H, Calcium Level 8.4L, Phosphorus Level 3.2, Magnesium Level 1.8 04/28/20 07:00: Hemoglobin 8.3L, Hematocrit 26L 04/28/20 09:12: Lab Scanned Report Transfusion Reaction Form 04/28/20 11:25: Glucometer 189H Microbiology 04/27/20 Urine Culture - Preliminary, Resulted Gram Positive Cocci In Chains Assessment/Plan Assessment/Plan (1) Hypovolemic shock Status: Resolved Assessment & Plan: Resolved with IVF and transfusions. Secondary to GI bleeding, stable blood pressure this morning, s/p 2 units PRBC. Recently had duodenal biopsy at for duodenal mass, resumed anticoagulation a couple of days later. Holding anticoagulants for now. (2) Acute blood loss anemia Status: Acute Assessment & Plan: Hemoglobin stable today at 8.3, after 2 units. Surgery consulted for GI bleed, appreciate recommendations. Holding anticoagulation. (3) GI bleed Status: Acute Assessment & Plan: Recent unrevealing duodenal mass biopsy at with plan for repeat scope in [address] Melgar's recommendations. CT pending. On IV pantoprazole BID. Qualifiers: Qualified Codes: K92.2 - Gastrointestinal hemorrhage, unspecified (4) Shocks, hemorrhagic Status: Resolved (5) Hx of longterm use of blood thinners Status: Chronic Assessment & Plan: Holding for now due to above. (6) Hypoxemia Status: Chronic Assessment & Plan: Stable on 2 lpm supplemental oxygen. (7) GERD (gastroesophageal reflux disease) Status: Chronic Assessment & Plan: Now with GI bleed. Continue IV PPI. (8) Obesity hypoventilation syndrome Status: Chronic (9) Leukocytosis Status: Acute Assessment & Plan: Suspect reactive related to acute blood loss, improved today, monitor. (10) Thrombocytosis Status: Resolved Assessment & Plan: Likely reactive. (11) COPD (chronic obstructive pulmonary disease) Status: Chronic (12) Hyperkalemia Status: Resolved (13) Diabetes Status: Chronic Assessment & Plan: Home meds/insulin when taking oral Qualifiers: (14) Coronary artery disease Status: Chronic Assessment & Plan: Holding anticoagulation due to GI bleed, resume other medications as blood pressure allows. (15) Hyponatremia Status: Resolved Assessment & Plan: Pseudo hyponatremia due to hyperglycemia on admit. (16) Atrial fibrillation Status: Chronic Assessment & Plan: Rate controlled, holding anticoagulation for GI bleed. (17) Duodenal mass Status: Acute Assessment & Plan: Recently was hospitalized at for possible cholangitis and found to have duodenal mass, biopsy unrevealing and repeat EGD did not show ma ss, per patient plan was for repeat EGD in 8 weeks. Appreciate Surgery recommendations. (18) Hyperlipidemia Status: Chronic (19) Obesities, morbid Status: Chronic (20) Hypotension Status: Resolved Qualifiers: Qualified Codes: I95.89 - Other hypotension; E86.1 - Hypovolemia (21) Hypothyroidism Status: Chronic Assessment & Plan: Resume home meds. (22) DVT prophylaxis Status: Acute Assessment & Plan: No pharmacologic due to GI bleed. ANA LUISA JOHNSON MD Apr 28, 2020 13:22
[2020-04-28 13:57] LABS: HEMOGLOBIN 8.4 g/dL (11.5-16.0)
--- NOTE | 2020-04-28 17:28 | Progress Note ---
Subjective Date Seen by a Provider: Apr 28, 2020 Time Seen by a Provider: 15:00 Subjective/Events-last exam doing ok. no signs clinical bleed. Hb stable. no abd pain. no nausea/vomiting. Objective Exam Vital Signs Date Time Temp Pulse Resp B/P (MAP) Pulse Ox O2 Delivery O2 Flow Rate FiO2 04/28/20 17:00 70 22 126/62 (83) 99 Nasal Cannula 2.00 04/28/20 16:00 70 23 149/82 (104) 96 Nasal Cannula 2.00 04/28/20 15:45 35.9 04/28/20 15:00 73 26 118/87 (97) 83 Nasal Cannula 2.00 04/28/20 14:00 86 25 120/79 (93) 97 Nasal Cannula 2.00 04/28/20 13:38 71 04/28/20 13:00 73 24 136/62 (86) 91 Nasal Cannula 2.00 04/28/20 12:00 70 21 145/68 (93) 100 Nasal Cannula 2.00 04/28/20 11:00 66 17 135/64 (87) 99 Nasal Cannula 2.00 04/28/20 10:00 68 20 151/71 (97) 97 Nasal Cannula 2.00 04/28/20 09:34 100 Nasal Cannula 2.00 04/28/20 09:00 68 45 119/65 (83) 95 Nasal Cannula 2.00 04/28/20 08:00 73 19 146/64 (91) 97 Nasal Cannula 2.00 04/28/20 07:40 98 Nasal Cannula 2.00 04/28/20 07:00 67 20 130/64 (86) 98 Nasal Cannula 2.00 04/28/20 06:51 68 04/28/20 06:00 66 22 110/55 (73) 97 Nasal Cannula 2.00 04/28/20 05:00 59 12 133/58 (83) 99 Nasal Cannula 2.00 04/28/20 04:00 36.6 04/28/20 04:00 68 10 113/51 (71) 97 Nasal Cannula 2.00 04/28/20 03:00 69 23 137/65 (89) 97 Nasal Cannula 2.00 04/28/20 02:00 80 15 135/74 (94) 100 Nasal Cannula 2.00 04/28/20 01:10 71 04/28/20 01:00 65 33 135/62 (86) 99 Nasal Cannula 2.00 04/28/20 00:00 77 23 129/60 (83) 98 Nasal Cannula 2.00 04/28/20 00:00 36.4 04/27/20 23:00 72 131/57 (81) 98 Nasal Cannula 2.00 04/27/20 22:00 70 131/56 (81) 97 Nasal Cannula 2.00 04/27/20 21:00 71 25 141/60 (87) 96 Nasal Cannula 2.00 04/27/20 20:00 36.7 04/27/20 20:00 71 17 114/53 (73) 97 Nasal Cannula 2.00 04/27/20 19:31 96 Nasal Cannula 2.00 04/27/20 19:00 76 36 117/56 (76) 98 Nasal Cannula 2.00 04/27/20 19:00 76 04/27/20 18:00 73 25 130/65 (86) 98 Nasal Cannula 2.00 I & O 04/28/20 07:00 Intake Total 3178 ml Output Total 1500 ml Balance 1678 ml Capillary Refill : Less Than 3 Seconds General Appearance: No Apparent Distress HEENT: PERRL/EOMI Neck: Full Range of Motion Respiratory: Decreased Breath Sounds, Rhonci Cardiovascular: Regular Rate, Rhythm Gastrointestinal: normal bowel sounds, non tender, soft Extremity: Normal Capillary Refill Neurologic/Psychiatric: Alert, Oriented x3 Skin: Normal Color Lymphatic: No Adenopathy Results Lab Laboratory Tests 04/27/20 19:05: Hemoglobin 8.7L, Hematocrit 28L 04/27/20 20:26: Glucometer 189H 04/28/20 00:33: Glucometer 218H 04/28/20 02:35: Hemoglobin 8.5L, Hematocrit 27L, White Blood Count 14.8H, Red Blood Count 2.86L, Mean Corpuscular Volume 94, Mean Corpuscular Hemoglobin 30, Mean Corpuscular Hemoglobin Concent 32, Red Cell Distribution Width 17.5H, Platelet Count 391, Mean Platelet Volume 9.7, Immature Granulocyte % (Auto) 1, Neutrophils (%) (Auto) 68, Lymphocytes (%) (Auto) 25, Monocytes (%) (Auto) 6, Eosinophils (%) (Auto) 1, Basophils (%) (Auto) 0, Neutrophils # (Auto) 10.0H, Lymphocytes # (Auto) 3.7, Monocytes # (Auto) 0.8, Eosinophils # (Auto) 0.1, Basophils # (Auto) 0.1, Immature Granulocyte # (Auto) 0.1, Sodium Level 137, Potassium Level 4.7, Chloride Level 102, Carbon Dioxide Level 25, Anion Gap 10, Blood Urea Nitrogen 24H, Creatinine 0.82, Estimat Glomerular Filtration Rate > 60, BUN/Creatinine Ratio 29, Glucose Level 210H, Calcium Level 8.4L, Phosphorus Level 3.2, Magnesium Level 1.8 04/28/20 07:00: Hemoglobin 8.3L, Hematocrit 26L 04/28/20 09:12: Lab Scanned Report Transfusion Reaction Form 04/28/20 11:25: Glucometer 189H 04/28/20 13:50: Hemoglobin 8.4L, Hematocrit 27L 04/28/20 15:34: Glucometer 162H Microbiology 04/27/20 MRSA Screen - Final, Complete 04/27/20 Urine Culture - Preliminary, Resulted Gram Positive Cocci In Chains Assessment/Plan Assessment/Plan Assess & Plan/Chief Complaint Upper GI bleed with hx cholelithiasis and choledocholithiasis s/p ERCP at [facility]. clinically not bleeding. likely secondary stress induced gastritis and anticoag. LFT's normal. ok for diabetic/low fat diet. will eventually need cholecystecctomy however right now poor surgical risk. if able to ambulate and eventually go home and able to lose even marginal amount of weight(10-15lbs) would decrease risk of surgery. ELE MUÑIZ MD Apr 28, 2020 17:28
[2020-04-28] MEDS ORDERED: MELATONIN 3 MG TABLET PO SCH (21:00)
[2020-04-28] MEDS: PANTOPRAZOLE 40 MG (PROTONIX) VIAL IV SCH (21:51)
[2020-04-28] MEDS: MUPIROCIN 2% OINT 22 GM (BACTROBAN) TUBE NSEACH SCH (21:53)
[2020-04-29] MEDS: fentaNYL INJECTION 100 MCG/2 ML AMP IV PRN (00:01)
[2020-04-29 03:30] LABS: BASOPHILS # (AUTO) 0.1 10^3/uL (0.0-0.1); BASOPHILS % (AUTO) 0 % (0-10); EOSINOPHILS # (AUTO) 0.3 10^3/uL (0.0-0.3); EOSINOPHILS % (AUTO) 2 % (0-10); HEMATOCRIT 26 % (35-52); LYMPHOCYTES # (AUTO) 2.8 10^3/uL (1.0-4.0); LYMPHOCYTES % (AUTO) 21 % (12-44); MEAN CORPUSCULAR HEMOGLOBIN 30 pg (25-34); MEAN CORPUSCULAR HGB CONC 31 g/dL (32-36); MEAN CORPUSCULAR VOLUME 97 fL (80-99); MEAN PLATELET VOLUME 9.6 fL (9.0-12.2); MONOCYTES # (AUTO) 0.9 10^3/uL (0.0-1.0); MONOCYTES % (AUTO) 7 % (0-12); NEUTROPHILS # (AUTO) 8.9 10^3/uL (1.8-7.8); NEUTROPHILS % (AUTO) 69 % (42-75); PLATELET COUNT 370 10^3/uL (130-400)
--- NOTE | 2020-04-29 03:30 | NUR ---
report called to [facility] 4th floor. Patient transferred to room 420 with all personal belongings. Patient stable at time of transfer
[2020-04-29 03:42] LABS: CHLORIDE 101 MMOL/L (98-107); POTASSIUM 4.3 MMOL/L (3.6-5.0); SODIUM 136 MMOL/L (135-145)
[2020-04-29 03:43] LABS: CALCIUM 8.5 MG/DL (8.5-10.1)
[2020-04-29 03:44] LABS: GLUCOSE 169 MG/DL (70-105)
--- NOTE | 2020-04-29 03:45 | NUR ---
To room 420 via bed accompanied by GA[facility] King and Pecan Huller, Walt. Awake and alert. O2 at 2L NC. Will continue to monitor.
[2020-04-29 03:46] LABS: CARBON DIOXIDE 26 MMOL/L (21-32)
[2020-04-29 03:48] LABS: CREATININE SERUM 0.83 MG/DL (0.60-1.30); GFR ESTIMATED > 60; PHOSPHORUS 3.9 MG/DL (2.3-4.7)
[2020-04-29 03:49] LABS: BUN/CREATININE RATIO 20
[2020-04-29 03:50] LABS: MAGNESIUM 1.8 MG/DL (1.6-2.4)
[2020-04-29 04:00] VITALS: BP 135/60
[2020-04-29] MEDS: inSUlin ASPART (NovoLOG) 1 UNIT/0.01 ML (CHARGE PER UNIT) SC SCH ×2 (04:32→12:07)
--- NOTE | 2020-04-29 04:32 | Pulmonary Progress Note ---
Subjective Time Seen by a Provider: 04:28 Subjective/Events-last exam No complications noted. Sepsis Event Evaluation Height, Weight, BMI Height: 5'5.00" Weight: 380lbs. 0.0oz. 172.986637nr; 60.75 BMI Method: Exam Exam Vital Signs Date Time Temp Pulse Resp B/P (MAP) Pulse Ox O2 Delivery O2 Flow Rate FiO2 04/29/20 00:42 54 04/29/20 00:42 Nasal Cannula 2.00 04/29/20 00:31 36.6 04/28/20 23:22 73 18 156/64 (94) 98 Nasal Cannula 2.00 04/28/20 21:16 98 Nasal Cannula 2.00 04/28/20 20:22 36.6 04/28/20 20:00 75 156/63 (94) 98 Nasal Cannula 2.00 04/28/20 19:00 70 04/28/20 18:00 75 22 113/93 (100) 94 Nasal Cannula 2.00 04/28/20 17:00 70 22 126/62 (83) 99 Nasal Cannula 2.00 04/28/20 16:00 70 23 149/82 (104) 96 Nasal Cannula 2.00 04/28/20 15:45 35.9 04/28/20 15:00 73 26 118/87 (97) 83 Nasal Cannula 2.00 04/28/20 14:00 86 25 120/79 (93) 97 Nasal Cannula 2.00 04/28/20 13:38 71 04/28/20 13:00 73 24 136/62 (86) 91 Nasal Cannula 2.00 04/28/20 12:00 70 21 145/68 (93) 100 Nasal Cannula 2.00 04/28/20 11:00 66 17 135/64 (87) 99 Nasal Cannula 2.00 04/28/20 10:00 68 20 151/71 (97) 97 Nasal Cannula 2.00 04/28/20 09:34 100 Nasal Cannula 2.00 04/28/20 09:00 68 45 119/65 (83) 95 Nasal Cannula 2.00 04/28/20 08:00 73 19 146/64 (91) 97 Nasal Cannula 2.00 04/28/20 07:40 98 Nasal Cannula 2.00 04/28/20 07:00 67 20 130/64 (86) 98 Nasal Cannula 2.00 04/28/20 06:51 68 04/28/20 06:00 66 22 110/55 (73) 97 Nasal Cannula 2.00 04/28/20 05:00 59 12 133/58 (83) 99 Nasal Cannula 2.00 I & O 04/29/20 07:00 Intake Total 2200 ml Output Total 2750 ml Balance -550 ml Height & Weight Height: 5'5.00" Weight: 380lbs. 0.0oz. 172.434830fg; 60.75 BMI Method: General Appearance: No Apparent Distress HEENT: PERRL/EOMI Neck: Full Range of Motion Respiratory: Decreased Breath Sounds, Rhonci Cardiovascular: Regular Rate, Rhythm Capillary Refill: Less Than 3 Seconds Peripheral Pulses: 2+ Radial Pulses (R), 2+ Radial Pulses (L) Gastrointestinal: normal bowel sounds, non tender, soft Extremity: Normal Capillary Refill Neurologic/Psychiatric: Alert, Oriented x3 Skin: Normal Color Lymphatic: No Adenopathy Results Lab Laboratory Tests 04/27/20 13:00 04/27/20 19:05 04/28/20 02:35 04/28/20 07:00 04/28/20 13:50 04/29/20 03:15 Assessment/Plan Assessment/Plan Acute and recurrent GIB s/p Duodenal mass s/p bx at [facility] -Monitor hb -s/p 2 units of PRBC -Pt was on Eliquis at home -Surgery is following -Protonix Q12 IV -LR to 150cc/hr for now Improving leukocytosis Cholelithiasis IDDM -Continue Insulin Hx of pyelonephritis chronic renal failure -Monitor Morbid obesity DM HTN RUBENS TRUJILLO DO Apr 29, 2020 04:32
[2020-04-29] MEDS: LACTATED RINGERS 1,000 ML IV SCH (05:31)
[2020-04-29] MEDS ORDERED: LEVOTHYROXINE 100 MCG (LEVOTHROID) TAB PO SCH (06:30)
[2020-04-29] MEDS ORDERED: LEVOTHYROXINE 75 MCG (LEVOTHROID) TABLET PO SCH (06:30)
[2020-04-29 08:00] VITALS: BP 144/76
[2020-04-29] MEDS: PANTOPRAZOLE 40 MG (PROTONIX) VIAL IV SCH (08:36)
[2020-04-29] MEDS: MUPIROCIN 2% OINT 22 GM (BACTROBAN) TUBE NSEACH SCH (08:37)
--- NOTE | 2020-04-29 11:42 | NUR ---
DISCHARGE PLANNING: Dr. Arthur indicates patient will be able to return to her skilled placement at [facility] Called and spoke to Marissa to inform of discharge plan. Transport expected later this afternoon between 2-3. Orders to be sent once they are available.
[2020-04-29 12:00] VITALS: BP 137/87
--- NOTE | 2020-04-29 12:00 | Discharge Summary ---
Discharge Summary Hospital Course Hospital Course Date of Admission: Apr 27, 2020 at 15:05 Admission Diagnosis : Family Physician/Provider: Jd Styles MD Date of Discharge: 04/29/20 Discharge Diagnosis: See problem list Hospital Course: See problem list Labs and Pending Lab Test: Laboratory Tests 04/28/20 13:50: Hemoglobin 8.4L, Hematocrit 27L 04/28/20 15:34: Glucometer 162H 04/28/20 21:33: Glucometer 222H 04/29/20 03:15: Hemoglobin 8.0L, Hematocrit 26L, White Blood Count 13.0H, Red Blood Count 2.67L, Mean Corpuscular Volume 97, Mean Corpuscular Hemoglobin 30, Mean Corpuscular Hemoglobin Concent 31L, Red Cell Distribution Width 17.4H, Platelet Count 370, Mean Platelet Volume 9.6, Immature Granulocyte % (Auto) 1, Neutrophils (%) (Auto ) 69, Lymphocytes (%) (Auto) 21, Monocytes (%) (Auto) 7, Eosinophils (%) (Auto) 2, Basophils (%) (Auto) 0, Neutrophils # (Auto) 8.9H, Lymphocytes # (Auto) 2.8, Monocytes # (Auto) 0.9, Eosinophils # (Auto) 0.3, Basophils # (Auto) 0.1, I mmature Granulocyte # (Auto) 0.1, Sodium Level 136, Potassium Level 4.3, Chloride Level 101, Carbon Dioxide Level 26, Anion Gap 9, Blood Urea Nitrogen 17, Creatinine 0.83, Estimat Glomerular Filtration Rate > 60, BUN/Creatinine Ratio 20, Glucose Level 169H, Calcium Level 8.5, Phosphorus Level 3.9, Magnesium Level 1.8 04/29/20 11:51: Glucometer 240H Microbiology 04/27/20 MRSA Screen - Final, Complete 04/27/20 Urine Culture - Preliminary, Resulted Enterococcus faecalis Home Meds Active Reported Novolog Flexpen (Insulin Aspart) 300 Units/3 Ml Solution Units SQ ACHS TAKES 12 UNITS ALONG WITH THE SLIDING SCALE CORRECTION: 181-220=1 UNIT 221-260=2 UNITS 261-300=3 UNITS 301-350=4 UNITS 351-400= 5 UNITS 401+=6 UNITS IF ABOVE 350 GIVE CORRECTION BOLUS AND RECHECK GLUCOSE IN 2 HOURS Novolog Flexpen (Insulin Aspart) 300 Units/3 Ml Solution 12 Units SQ AC 12 UNITS WITH MEALS ALONG WITH A SLIDING SCALE Pantoprazole Sodium 20 Mg Tablet.dr 20 Mg PO BID Glucosamine (Glucosamine Sulfate 2Kcl) 1,000 Mg Tablet 1,000 Mg PO DAILY Lantus Solostar (Insulin Glargine,Hum.rec.anlog) 100 Unit/1 Ml Insuln.pen 15 Unit SQ HS Melatonin 5 Mg Tablet 5 Mg PO HS Dulcolax (Bisacodyl) 5 Mg Tablet.dr 5 Mg PO Q8H PRN Amlodipine Besylate 5 Mg Tablet 5 Mg PO DAILY HOLD AND NOTIFY PCP IF BP <80/50 OR 180>110, PULSE <50 OR >110 Eliquis (Apixaban) 5 Mg Tablet 5 Mg PO BID Levothyroxine Sodium 175 Mcg Tablet 175 Mcg PO DAILY Lisinopril 5 Mg Tablet 5 Mg PO HS HOLD AND NOTIFY PCP IF BP <80/50 OR 180>110, PULSE <50 OR >110 Miralax (Polyethylene Glycol 3350) 17 Gm Powd.pack 17 Gm PO DAILY PRN Acetaminophen Extra Strength (Acetaminophen) 500 Mg Tablet 1,000 Mg PO Q4H PRN Multivitamins (Multivitamin) 1 Each Tablet 1 Tab PO 1600 Instructions to Patient/Family Assessment/Instructions Follow up with Dr. Garcia next week to discuss when/how to resume anticoagulation. Skilled NF Admit to: [facility] Certification (SNF) I certify that SNF services are required to be given on an inpatient basis because of the above named patient's need for correction care on a co ntinuing basis for the conditions(s) for which he/she was receiving inpatient hospital services prior to his/her transfer to the SNF. Detention Facility Order: Nursing Services, Physical Therapy-Evaluate & Treat Oxygen Delivery Method: Nasal Cannula Discharge Diet: ADA Diet Daily Activity as Tolerated: Yes Ana Luisa Arthur Apr 29, 2020 11:55 Discharge Physical Exam General: Alert, No Acute Distress Lungs: Clear to Auscultation, Normal Air Movement Heart: Regular Rate, No Murmurs Abdomen: Normal Bowel Sounds, Soft Extremities: Other (trace edema) Psych/Mental Status: Mental Status NL, Mood NL ANA LUISA ARTHUR MD Apr 29, 2020 12:00
--- NOTE | 2020-04-29 14:03 | Progress Note ---
Subjective Date Seen by a Provider: Apr 29, 2020 Time Seen by a Provider: 13:00 Subjective/Events-last exam doing well. tolerating diet. no abd pain. no fever/chills. Objective Exam Vital Signs Date Time Temp Pulse Resp B/P (MAP) Pulse Ox O2 Delivery O2 Flow Rate FiO2 04/29/20 12:00 35.7 74 18 137/87 (104) 95 Nasal Cannula 2.00 04/29/20 10:55 Nasal Cannula 2.00 04/29/20 09:00 98 Nasal Cannula 2.00 04/29/20 08:00 36.2 72 20 144/76 (98) 98 Nasal Cannula 2.00 04/29/20 04:00 36.4 68 20 135/60 (85) 94 Nasal Cannula 2.00 04/29/20 00:42 54 04/29/20 00:42 Nasal Cannula 2.00 04/29/20 00:31 36.6 04/28/20 23:22 73 18 156/64 (94) 98 Nasal Cannula 2.00 04/28/20 21:16 98 Nasal Cannula 2.00 04/28/20 20:22 36.6 04/28/20 20:00 75 156/63 (94) 98 Nasal Cannula 2.00 04/28/20 19:00 70 04/28/20 18:00 75 22 113/93 (100) 94 Nasal Cannula 2.00 04/28/20 17:00 70 22 126/62 (83) 99 Nasal Cannula 2.00 04/28/20 16:00 70 23 149/82 (104) 96 Nasal Cannula 2.00 04/28/20 15:45 35.9 04/28/20 15:00 73 26 118/87 (97) 83 Nasal Cannula 2.00 04/28/20 14:00 86 25 120/79 (93) 97 Nasal Cannula 2.00 I & O 04/29/20 07:00 Intake Total 3600 ml Output Total 3625 ml Balance -25 ml Capillary Refill : Less Than 3 Seconds General Appearance: No Apparent Distress HEENT: PERRL/EOMI Neck: Full Range of Motion Respiratory: Decreased Breath Sounds Cardiovascular: Regular Rate, Rhythm Gastrointestinal: normal bowel sounds, non tender, soft Extremity: Normal Capillary Refill Neurologic/Psychiatric: Alert, Oriented x3 Skin: Normal Color Lymphatic: No Adenopathy Results Lab Laboratory Tests 04/28/20 15:34: Glucometer 162H 04/28/20 21:33: Glucometer 222H 04/29/20 03:15: White Blood Count 13.0H, Red Blood Count 2.67L, Hemoglobin 8.0L, Hematocrit 26L, Mean Corpuscular Volume 97, Mean Corpuscular Hemoglobin 30, Mean Corpuscular Hemoglobin Concent 31L, Red Cell Distribution Width 17.4H, Platelet Count 370, Mean Platelet Volume 9.6, Immature Granulocyte % (Auto) 1, Neutrophils (%) (Auto) 69, Lymphocytes (%) (Auto) 21, Monocytes (%) (Auto) 7, Eosinophils (%) (Auto) 2, Basophils (%) (Auto) 0, Neutrophils # (Auto) 8.9H, Lymphocytes # (Auto) 2.8, Monocytes # (Auto) 0.9, Eosinophils # (Auto) 0.3, Basophils # (Auto) 0.1, Immature Granulocyte # (Auto) 0.1, Sodium Level 136, Potassium Level 4.3, Chloride Level 101, Carbon Dioxide Level 26, Anion Gap 9, Blood Urea Nitrogen 17, Creatinine 0.83, Estimat Glomerular Filtration Rate > 60, BUN/Creatinine Ratio 20, Glucose Level 169H, Calcium Level 8.5, Phosphorus Level 3.9, Magnesium Level 1.8 04/29/20 11:51: Glucometer 240H Microbiology 04/27/20 MRSA Screen - Final, Complete 04/27/20 Urine Culture - Preliminary, Resulted Enterococcus faecalis Assessment/Plan Assessment/Plan Assess & Plan/Chief Complaint Upper GI bleed with hx cholelithiasis and choledocholithiasis s/p ERCP at . clinically not bleeding. likely secondary stress induced gastritis and anticoag. LFT's normal. ok for diabetic/low fat diet. will eventually need cholecystecctomy however right now poor surgical risk. if able to ambulate and eventually go home and able to lose even marginal amount of weight(10-15lbs) would decrease risk of surgery. ELE MUÑIZ MD Apr 29, 2020 14:03
--- NOTE | 2020-04-29 14:18 | NUR ---
DISCHARGE PLANNING: This RN has sent unfinalized discharge orders to [facility]. distribution superintendent time set for 2:45. I have not spoken to family regarding return.
== END 2020-04-29 15:48 | DRG 377 ==
LOC: EDUNIT# 12:48 → ER 12:49 → ICU 15:05 → 4TH 04-29 04:30
PROVIDERS: ADMIT Internal Medicine; ATTEND Family Medicine
PROC: 02HV33Z Insertion of Infusion Device into Superior Vena Cava, Percutaneous Approach (ICD-10-PCS; principal; 2020-04-27)
DX: K29.61 Other gastritis with bleeding (principal); R57.8 Other shock; D62 Acute posthemorrhagic anemia; E66.2 Morbid (severe) obesity with alveolar hypoventilation; Z68.43 Body mass index [BMI] 50.0-59.9, adult; N17.9 Acute kidney failure, unspecified; I95.9 Hypotension, unspecified; I48.91 Unspecified atrial fibrillation; E11.40 Type 2 diabetes mellitus with diabetic neuropathy, unspecified; Z79.84 Long term (current) use of oral hypoglycemic drugs; J44.9 Chronic obstructive pulmonary disease, unspecified; I25.10 Atherosclerotic heart disease of native coronary artery without angina pectoris; I12.9 Hypertensive chronic kidney disease with stage 1 through stage 4 chronic kidney disease, or unspecified chronic kidney disease; E11.22 Type 2 diabetes mellitus with diabetic chronic kidney disease; N18.9 Chronic kidney disease, unspecified; K80.20 Calculus of gallbladder without cholecystitis without obstruction; G47.30 Sleep apnea, unspecified; E78.00 Pure hypercholesterolemia, unspecified; K21.9 Gastro-esophageal reflux disease without esophagitis; M19.91 Primary osteoarthritis, unspecified site; E03.9 Hypothyroidism, unspecified; R09.02 Hypoxemia; Z87.891 Personal history of nicotine dependence; Z79.2 Long term (current) use of antibiotics; Z79.01 Long term (current) use of anticoagulants; Z79.82 Long term (current) use of aspirin; Z79.891 Long term (current) use of opiate analgesic; Z95.5 Presence of coronary angioplasty implant and graft; Z88.8 Allergy status to other drugs, medicaments and biological substances; Z83.3 Family history of diabetes mellitus; Z82.49 Family history of ischemic heart disease and other diseases of the circulatory system
CPT/HCPCS: 36415; 51702; 71045; 74178; 80048; 80053; 81000; 82962; 83735; 84100; 84484; 85007; 85014; 85018; 85025; 85027; 86850; 86900; 86901; 86920; 87077; 87081; 87088; 87186; 93005; 96361; 96365; 96375

== ENCOUNTER 2021-08-03 20:37 | Inpatient (IN) | payer MEDICARE, MEDICAID ==
[~2021-08-03] VITALS: Ht 165.1 cm; Wt 188.0 kg
[~2021-08-03 20:37] MED LIST changes: +CYCL10TA25 PO; -CYCL10TA9 PO; +FLUC100T10 PO; -FLUC100T6 PO; -GUAI100L36 PO; +GUAI100L74 PO; +INSU100I10 SQ; -LISI-556 PO; +LISI5TAB20 PO; +MELA5TAB14 PO; +PANT20TA18 PO
--- NOTE | 2021-08-03 20:46 | Progress Note ---
Progress Note This is a 66yoWF morbidly obese female of [facility] who is known to me from prior admit 18 months ago who has a h/o super morbid obesity who presented [place] [facility] after she attempted to see her PCP Dr Styles in clinic today but could not get out of the car so she proceeded to return back home and could not get herself out of her car so firefighters and law enforcement officers were required to finally get her out of the car and was brought into [place] [facility] and was found to have sepsis from UTI and resp failure requiring biPAP and central line was placed and pancultured and given Cefepime and Vanc and baig cath placed. ABG reviewed. Patient was transferred to [facility] for higher level of care with ICU capabilities. Previous visit 03/2020: CC: BON HPI: This is a 65yoWF clinic patient of [facility] who is known to me from prior admits who has a PMH of morbid obesity who was recently DC from after 04/13-04/22/20 and DC to [place] on Tuesday who presents to the ER with large amounts of bloody stools. Patient had a duodenal mass biopsy at and then restarted on OAC on 04/18/20. Patient is currently having a lot of chronic generalized pain but her SBP is 70 and cannot withstand any narcotics currently. I have reviewed meds and labs and records. [facility] notes: Today's Date: 04/22/2020 Admission Date: 04/13/2020 LOS: 9 days Assessment/Plan: 65 y.o. female with past medical history of morbid obesity, CAD status post stents ', HTN, A. fib, IDDM, HLD, hypothyroidism, COPD on 4 L nasal cannula at baseline. She presents to [facility] as a transfer with concern for acute gallstone pancreatitis. Endoscopic evaluation/ERCP revealed biliary sludge, and ulcerated duodenal mass. Biopsies were obtained, resulted as degenerated specimen with rare atypical cells, no overt sign of malignancy. Gastroenterology had recommended a repeat EGD with more tissue sampling to better evaluate the duodenal mass. On 04/17/2019 when she went for repeat EGD, the examination of the duodenum did not show previously seen duodenal wall mass despite of multiple examinations of the second portion. Hemoglobin appeared stable and PRINCIPAL CLERK TYPIST apixaban for A. fib was restarted 04/18. Interval Update 04/22/2020: > Continue to monitor off abx > Continue Eliquis, monitor Hb daily > Beginning SNF placement coordination for discharge Expect her to need follow-up EGD for this resolved duodenal mass Also need outpatient follow-up for a colonoscopy, as she has never been screened Follow-up with general surgery for cholecystectomy (requested) #Acute pancreatitis, resolved #Concern for cholangitis, resolved -1 week of waxing/waning right upper quadrant pain associated with meals Sudden worsening overnight now with pain radiating to the back, nausea/vomiting -Per outside records, lipase elevated at 1920 -CT abdomen/pelvis suspicious for gallstones -Lactic acid 11 on admission to previous emergency department -Patient reports she received 1 unit PRBC in the emergency department -Also received 1 L NS, metronidazole in the neighboring emergency department. -RUQ Abd US: Cholelithiasis and positive sonographic Alarcon's sign, suggestive of acute cholecystitis -T bili uptrending, transaminases uptrending, WBC count uptrending as of 04/14 - EUS 04/14 showed bile duct sludge and large, ulcerated submucosal mass in second portion of duodenum, measuring 31 x 27 mm. Biopsy and FNA x3 obtained. - ERCP 04/14 showed no distal filling defect suggestive of stone. Biliary sphincterotomy performed. Sludge extracted. PLAN > s/p Ceftriaxone 2 g daily, Flagyl 500 mg Q12hr for suspected cholangitis (x7 days, end 04/19) > Recommend cholecystectomy as outpatient, will coordinate at discharge - c onsult placed w/ General Surgery #Upper GI bleed #Acute blood loss anemia -Patient reports one episode of "dark stool" on Tuesday -S/p 1 unit PRBC at neighboring hospital -Most recent hemoglobin in the outside records = 7.9 -FOBT at outside hospital negative -EUS/ERCP findings above -likely source of bleed -Continue to hold AC for afib due to concern for active GI bleed -PRINCIPAL CLERK TYPIST apixiban contraindicated in setting of GI malignancy, may need to transition to lovenox eventually -04/16 Hb 7.2, transfused 1 unit PRBC (second unit) -04/17 repeat EGD: previously identified duodenal mass could not be located, consistent with edema and inflammation of the duodenum which has resolved PLAN > Transfusion goal 7 > EGD & colonoscopy follow up outpt > Restart PRINCIPAL CLERK TYPIST Eliquis, recheck CBC this afternoon #Diabetes -PRINCIPAL CLERK TYPIST's include Sitagliptin 100 mg, Glipizide 5 mg, Liraglutide -PRINCIPAL CLERK TYPIST insulin is Detemir 16 units nightly, Lispro 18 units TID AC PLAN > PRINCIPAL CLERK TYPIST meds on discharge #Insomnia - Difficulty sleeping due to stress of possible cancer diagnosis PLAN > PRINCIPAL CLERK TYPIST Trazodone on discharge #HTN -PRINCIPAL CLERK TYPIST's include lisinopril 5 mg daily, amlodipine 5 mg daily -Lisinopril held on admit pending labs, concern for possible TEMO PLAN > Continue amlodipine on discharge > Continue lisinopril 5mg daily on discharge #Morbid Obesity #HLD >PRINCIPAL CLERK TYPIST is atorvastatin 40 mg nightly, continue #GERD - PRINCIPAL CLERK TYPIST PPI > Pantoprazole 20mg BID #Hypothyroidism - TSH wnl PLAN > PRINCIPAL CLERK TYPIST levothyroxine 175 mcg QDAY, continue FEN: No IVF, diabetic diet, electrolytes reviewed, Diet NPO Prophalyxis: PRINCIPAL CLERK TYPIST Eliquis Code: Full code Disposition: Continue admission, floor, no telemetry, med [address] Umaña. EDEL BLISS DO August 03, 2021 20:46
[2021-08-03 22:30] VITALS: BP 117/48
[2021-08-03] MEDS ORDERED: BISACODYL 10 MG SUPP (DULCOLAX) PR PRN (22:30)
[2021-08-03] MEDS ORDERED: DexMEDEtomidine 250 ML DRIP 250 ML IV SCH (22:30)
[2021-08-03] MEDS ORDERED: ACETAMINOPHEN 325 MG TABLET PO PRN (22:30)
[2021-08-03] MEDS ORDERED: CALCIUM CARBONATE 500 MG (TUMS) TAB.CHEW PO PRN (22:30)
[2021-08-03] MEDS ORDERED: ANTACID SUSP 30 ML UDC (MYLANTA) PO PRN (22:30)
[2021-08-03] MEDS ORDERED: NALOXONE 0.4 MG/ML 1 ML (NARCAN) VIAL IV PRN (22:30)
[2021-08-03] MEDS ORDERED: polyethylene glycoL POWDER 17 GM (MIRALAX) PACK PO PRN (22:30)
[2021-08-03] MEDS ORDERED: VANCOMYCIN INJECTION 0.1 MG in NS (IVPB) 250 ML IV SCH (22:30)
[2021-08-03] MEDS ORDERED: ONDANSETRON 4 MG (ZOFRAN) ORAL DISSOLVE TAB PO PRN (22:30)
[2021-08-03] MEDS ORDERED: diphenhydrAMINE 25 MG TAB (BENADRYL) PO PRN (22:30)
[2021-08-03] MEDS ORDERED: diphenhydrAMINE 50 MG/ML INJ (BENADRYL) IVP PRN (22:30)
[2021-08-03] MEDS ORDERED: MILK OF MAGNESIA 400 MG/5 ML 30 ML UDC PO PRN (22:30)
[2021-08-03] MEDS ORDERED: LACTULOSE SYRUP 10GM/15ML (ENULOSE) 30ML UDC PO PRN (22:30)
[2021-08-03] MEDS ORDERED: ONDANSETRON 4 MG/2 ML (SDV) Z0FRAN IV PRN (22:30)
[2021-08-03 23:11] LABS: ABG OXYGEN SATURATION 99 % (94-100); ABG PCO2 56 MMHG (35-45); ABG PO2 197 MMHG (79-93)
[2021-08-03 23:12] VITALS: BP 110/47
[2021-08-03 23:15] LABS: ALLENS TEST POSITIVE; INSPIRED O2 75% BIPAP; PATIENT TEMP 37.5; VENTILATOR NO
[2021-08-03 23:16] LABS: ABG PH 7.33 (7.37-7.43)
[2021-08-03] MEDS ORDERED: VANCOMYCIN INJECTION 2,000 MG in NS IV 500 ML 500 ML IV ONE (23:30)
[2021-08-03] MEDS ORDERED: RT-ALBUTEROL/IPRATROPIUM 3 ML (DUONEB) VIAL INH PRN (23:45)
[2021-08-04] MEDS: NS IV 1000 ML 1,000 ML IV SCH ×4 (00:11→20:20)
[2021-08-04] MEDS: ENOXAPARIN 60 MG/0.6 ML (LOVENOX) SYR SC SCH ×3 (00:12→23:34)
[2021-08-04] MEDS: ALPRAZolam 0.5 MG (XANAX) TAB PO SCH ×8 (00:12→23:34)
[2021-08-04] MEDS: CEFEPIME INJECTION 1,000 MG in NS (IVPB) 50 ML IV SCH ×4 (01:36→18:58)
[2021-08-04 01:57] VITALS: BP 96/44
[2021-08-04] MEDS ORDERED: RT-ALBUTEROL/IPRATROPIUM 3 ML (DUONEB) VIAL INH SCH (02:00)
[2021-08-04 05:04] LABS: BASOPHILS % (AUTO) 0 % (0-10); EOSINOPHILS # (AUTO) 0.1 10^3/uL (0.0-0.3); EOSINOPHILS % (AUTO) 0 % (0-10); HEMATOCRIT 34 % (35-52); LYMPHOCYTES # (AUTO) 2.5 10^3/uL (1.0-4.0); LYMPHOCYTES % (AUTO) 17 % (12-44); MEAN CORPUSCULAR HEMOGLOBIN 26 pg (25-34); MEAN CORPUSCULAR HGB CONC 30 g/dL (32-36); MEAN CORPUSCULAR VOLUME 88 fL (80-99); MEAN PLATELET VOLUME 9.7 fL (9.0-12.2); MONOCYTES # (AUTO) 1.4 10^3/uL (0.0-1.0); MONOCYTES % (AUTO) 9 % (0-12); NEUTROPHILS # (AUTO) 10.6 10^3/uL (1.8-7.8); NEUTROPHILS % (AUTO) 72 % (42-75); PLATELET COUNT 347 10^3/uL (130-400); WHITE BLOOD COUNT 14.6 10^3/uL (4.3-11.0)
[2021-08-04 05:09] LABS: ALBUMIN 3.1 GM/DL (3.2-4.5); POTASSIUM 4.7 MMOL/L (3.6-5.0)
[2021-08-04 05:11] LABS: CALCIUM 8.6 MG/DL (8.5-10.1)
[2021-08-04 05:12] LABS: TOTAL PROTEIN 6.9 GM/DL (6.4-8.2)
[2021-08-04 05:14] LABS: BILIRUBIN,TOTAL 0.6 MG/DL (0.1-1.0)
[2021-08-04 05:15] LABS: CREATININE SERUM 0.99 MG/DL (0.60-1.30); PHOSPHORUS 3.9 MG/DL (2.3-4.7)
[2021-08-04 05:18] LABS: MAGNESIUM 1.6 MG/DL (1.6-2.4)
--- NOTE | 2021-08-04 05:18 | Diagnostic Imaging Report ---
INDICATION: Dyspnea. Comparison is made with prior examination of 04/28/20. There is generalized cardiomegaly and mild central pulmonary venous congestion. The mediastinal configuration is unremarkable. There is no pleural effusion, pneumothorax, or pneumonia. The visualized osseous structures are unremarkable. IMPRESSION: Cardiomegaly and mild central pulmonary venous congestion. Dictated by: Dictated on workstation # [id number]
[2021-08-04] MEDS: KCL 20 MEQ TAB (K-DUR) PO SCH (05:21)
[2021-08-04] MEDS: POTASSIUM CL 10MEQ/50ML IVPB 50 ML IV SCH (05:21)
[2021-08-04] MEDS: MAGNESIUM 1 GM/100 ML IVPB 100 ML IV SCH ×3 (05:22→05:37)
[2021-08-04] MEDS ORDERED: NS IV 500 ML 500 ML ONE (05:34)
[2021-08-04] MEDS: inSUlin ASPART (NovoLOG) 1 UNIT/0.01 ML (CHARGE PER UNIT) SC SCH ×5 (05:36→20:16)
[2021-08-04 05:46] LABS: HYPOCHROMASIA SLIGHT; LYMPHOCYTES % (MANUAL) 20 %; MICROCYTOSIS SLIGHT; MONOCYTES % (MANUAL) 7 %; NEUTROPHILS % (MANUAL) 73 %; POLYCHROMASIA SLIGHT
[2021-08-04] MEDS ORDERED: VANCOMYCIN 1500 MG/NS 500 ML IVPB IV ONE ×2 (06:00)
--- NOTE | 2021-08-04 06:03 | History & Physical ---
History of Present Illness HPI/Chief Complaint CC: Urosepsis HPI: This is a 66yoWF morbidly obese female of [facility] who is known to me from prior admit 18 months ago who has a h/o super morbid obesity who presented to the [facility] after she attempted to see her PCP Dr Styles in clinic today but could not get out of the car so she proceeded to return back home and could not get herself out of her car so firefighters and law enforcement officers were required to finally get her out of the car and was brought into the [facility] ER and was found to have sepsis from UTI and resp failure requiring biPAP and central line was placed and pancultured and given Cefepime and Vanc and baig cath placed. ABG reviewed. Patient was transferred to [facility] for higher level of care with ICU capabilities. Patient is improved. BiPAP will be maintained as much as possible due to continued CO2 retention. IV antibiotics empirically. Reconciled all home meds Previous visit 03/2020: CC: GIB HPI: This is a 65yoWF clinic patient of [facility] who is known to me from prior admits who has a PMH of morbid obesity who was recently DC from after 04/13-04/22/20 and DC to [place] on Tuesday who presents to the ER with large amounts of bloody stools. Patient had a duodenal mass biopsy at and then restarted on OAC on 04/18/20. Patient is currently having a lot of chronic generalized pain but her SBP is 70 and cannot withstand any narcotics currently. I have reviewed meds and labs and records. [facility] notes: Today's Date: 04/22/2020 Admission Date: 04/13/2020 LOS: 9 days Assessment/Plan: 65 y.o. female with past medical history of morbid obesity, CAD status post stents '09, HTN, A. fib, IDDM, HLD, hypothyroidism, COPD on 4 L nasal cannula at baseline. She presents to [facility] as a transfer with concern for acute gallstone pancreatitis. Endoscopic evaluation/ERCP revealed biliary sludge, and ulcerated duodenal mass. Biopsies were obtained, resulted as degenerated specimen with rare atypical cells, no overt sign of malignancy. Gastroenterology had recommended a repeat EGD with more tissue sampling to better evaluate the duodenal mass. On 04/17/2019 when she went for repeat EGD, the examination of the duodenum did not show previously seen duodenal wall mass despite of multiple exa minations of the second portion. Hemoglobin appeared stable and ENTRY LEVEL LAB TECHNICIAN apixaban for A. fib was restarted 04/18. Interval Update 04/22/2020: > Continue to monitor off abx > Continue Eliquis, monitor Hb daily > Beginning SNF placement coordination for discharge Expect her to need follow-up EGD for this resolved duodenal mass Also need outpatient follow-up for a colonoscopy, as she has never been screened Follow-up with general surgery for cholecystectomy (requested) #Acute pancreatitis, resolved #Concern for cholangitis, resolved -1 week of waxing/waning right upper quadrant pain associated with meals Sudden worsening overnight now with pain radiating to the back, nausea/vomiting -Per outside records, lipase elevated at 1920 -CT abdomen/pelvis suspicious for gallstones -Lactic acid 11 on admission to previous emergency department -Patient reports she received 1 unit PRBC in the emergency department -Also received 1 L NS, metronidazole in the neighboring emergency department. -RUQ Abd US: Cholelithiasis and positive sonographic Alarcon's sign, suggestive of acute cholecystitis -T bili uptrending, transaminases uptrending, WBC count uptrending as of 04/14 - EUS 04/14 showed bile duct sludge and large, ulcerated submucosal mass in second portion of duodenum, measuring 31 x 27 mm. Biopsy and FNA x3 obtained. - ERCP 04/14 showed no distal filling defect suggestive of stone. Biliary sphincterotomy performed. Sludge extracted. PLAN > s/p Ceftriaxone 2 g daily, Flagyl 500 mg Q12hr for suspected cholangitis (x7 days, end 04/19) > Recommend cholecystectomy as outpatient, will coordinate at discharge - consult placed w/ General Surgery #Upper GI bleed #Acute blood loss anemia -Patient reports one episode of "dark stool" on Tuesday -S/p 1 unit PRBC at neighboring hospital -Most recent hemoglobin in the outside records = 7.9 -FOBT at outside hospital negative -EUS/ERCP findings above -likely source of bleed -Continue to hold AC for afib due to concern for active GI bleed -ENTRY LEVEL LAB TECHNICIAN apixiban contraindicated in setting of GI malignancy, may need to transition to lovenox eventually -04/16 Hb 7.2, transfused 1 unit PRBC (second unit) -1/21 repeat EGD: previously identified duodenal mass could not be located, consistent with edema and inflammation of the duodenum which has resolved PLAN > Transfusion goal 7 > EGD & colonoscopy follow up outpt > Restart ENTRY LEVEL LAB TECHNICIAN Eliquis, recheck CBC this afternoon #Diabetes -ENTRY LEVEL LAB TECHNICIAN's include Sitagliptin 100 mg, Glipizide 5 mg, Liraglutide -ENTRY LEVEL LAB TECHNICIAN insulin is Detemir 16 units nightly, Lispro 18 units TID AC PLAN > ENTRY LEVEL LAB TECHNICIAN meds on discharge #Insomnia - Difficulty sleeping due to stress of possible cancer diagnosis PLAN > ENTRY LEVEL LAB TECHNICIAN Trazodone on discharge #HTN -ENTRY LEVEL LAB TECHNICIAN's include lisinopril 5 mg daily, amlodipine 5 mg daily -Lisinopril held on admit pending labs, concern for possible TEMO PLAN > Continue amlodipine on discharge > Continue lisinopril 5mg daily on discharge #Morbid Obesity #HLD >ENTRY LEVEL LAB TECHNICIAN is atorvastatin 40 mg nightly, continue #GERD - ENTRY LEVEL LAB TECHNICIAN PPI > Pantoprazole 20mg BID #Hypothyroidism - TSH wnl PLAN > ENTRY LEVEL LAB TECHNICIAN levothyroxine 175 mcg QDAY, continue FEN: No IVF, diabetic diet, electrolytes reviewed, Diet NPO Prophalyxis: ENTRY LEVEL LAB TECHNICIAN Eliquis Code: Full code Disposition: Continue admission, floor, no telemetry, med [address] Umaña. JANNY BLISS DO August 03, 2021 20:46 Source: patient, RN/MD, old records Exam Limitations: no limitations Date Seen 08/04/21 Time Seen by a Provider: 09:30 Attending Physician Janny Bliss DO PCP Jd Styles MD Referring Physician Date of Admission August 03, 2021 at 22:20 Home Medications & Allergies Home Medications Reviewed patient Home Medication Reconciliation performed by pharmacy medication reconciliations set up mold technician and/or nursing. Patients Allergies have been reviewed. Allergies Allergies Coded Allergies canagliflozin (Verified Allergy, Unknown, 04/23/19) Past Tuppduz-Iwdfel-Jauvwz Hx Past Med/Social Hx: Reviewed Nursing Past Med/Soc Hx, Reviewed and Corrections made Patient Social History Marrital Status: single Employed/Student: unemployed Alcohol Use: Denies Use Smoking Status: Former Smoker Former Smoker, Quit: Nov 28, 2007 Type Used: Cigarettes Immunizations Up To Date Date of Pneumonia Vaccine: Dec 26, 2018 Date of Influenza Vaccine: Jan 16, 2020 Past Medical History Surgeries: Coronary Stent Respiratory: COPD, Sleep Apnea Cardiac: Atrial Fibrillation, Coronary Artery Disease, High Cholesterol, Hypertension Neurological: Neuropathy Reproductive: No Genitourinary: Kidney Infection Gastrointestinal: Gastroesophageal Reflux Musculoskeletal: Arthritis Endocrine: Diabetes, Insulin dep, Hypothyroidsim Loss of Vision: Denies Family History Heart Disease, Diabetes, Hypertension Review of Systems Constitutional: see HPI, malaise, weakness EENTM: no symptoms reported Respiratory: dyspnea on exertion Cardiovascular: no symptoms reported Gastrointestinal: no symptoms reported Musculoskeletal: back pain, joint pain Skin: no symptoms reported Psychiatric/Neurological: Anxiety All Other Systems Reviewed Negative Unless Noted: Yes Physical Exam Physical Exam Vital Signs Vital Signs - First Documented 08/03/21 08/03/21 08/03/21 22:20 22:26 22:30 Temp 37.5 Pulse 80 Resp 15 B/P (MAP) 117/48 Pulse Ox 96 O2 Delivery NIV Bilevel O2 Flow Rate 75.00 FiO2 75 Capillary Refill : Less Than 3 Seconds Height, Weight, BMI Height: 5'5.00" Weight: 380lbs. 0.0oz. 172.462563qi; 72.85 BMI Method: General Appearance: No Apparent Distress, WD/WN, Anxious, Chronically ill, Obese Eyes: Bilateral Eye Normal Inspection, Bilateral Eye PERRL HEENT: PERRL/EOMI, Normal ENT Inspection, Pharynx Normal Neck: Full Range of Motion, Normal Inspection, Non Tender, Supple, Carotid Bruit Respiratory: Chest Non Tender, Lungs Clear, Normal Breath Sounds, No Accessory Muscle Use, No Respiratory Distress, Decreased Breath Sounds Cardiovascular: Regular Rate, Rhythm, No Edema, No Gallop, No JVD, No Murmur, Normal Peripheral Pulses Gastrointestinal: Normal Bowel Sounds, No Organomegaly, No Pulsatile Mass, Non Tender, Soft Back: Normal Inspection, No CVA Tenderness, No Vertebral Tenderness Extremity: Normal Capillary Refill, Normal Inspection, Normal Range of Motion, Non Tender, No Calf Tenderness, No Pedal Edema Neurologic/Psychiatric: Alert, Oriented x3, No Motor/Sensory Deficits, Normal Mood/Affect Skin: Normal Color, Warm/Dry Lymphatic: No Adenopathy Results Results/Procedures Labs Laboratory Tests 08/04/21 04:45 08/05/21 04:25 Patient resulted labs reviewed. Assessment/Plan Admission Diagnosis Assessment: Sepsis UTI Super morbid obesity BMI 73 Acute on chronic respiratory failure Obesity hypoventilation syndrome CO2 retention requiring BiPAP Hypertension Hyperlipidemia Diabetes Paroxysmal atrial fibrillation Anticoagulation contraindicated due to life-threatening bleed in the past Hypothyroidism Plan: Supportive care IV antibiotics ICU BiPAP Admission Status: Inpatient Order (span 2 midnights) Reason for Inpatient Admission: Sepsis Diagnosis/Problems Diagnosis/Problems (1) Sepsis (2) Hypotension Status: Resolved Resolution Date/Time: 04/28/20 @ 13:41 (3) Hypothyroidism Status: Chronic (4) Renal failure (ARF), acute on chronic Status: Acute (5) Hyperlipidemia Status: Chronic (6) Atrial fibrillation Status: Chronic (7) Coronary artery disease Status: Chronic (8) Diabetes Status: Chronic (9) COPD (chronic obstructive pulmonary disease) Status: Chronic JANNY BLISS DO August 04, 2021 06:03
[2021-08-04 07:27] VITALS: BP 133/89
[2021-08-04] MEDS: RT-ALBUTEROL/IPRATROPIUM 3 ML (DUONEB) VIAL INH SCH ×5 (07:27→21:40)
[2021-08-04] MEDS: SENNOSIDES 8.6 MG (SENOKOT) TAB PO SCH ×2 (08:25→20:18)
[2021-08-04] MEDS: DOCUSATE SODIUM 100 MG (COLACE) CAP PO SCH ×2 (08:25→20:18)
[2021-08-04 08:27] LABS: ABG BASE EXCESS 3.2 MMOL/L (-2.5-2.5); ABG OXYGEN SATURATION 99 % (94-100); ABG PCO2 50 MMHG (35-45); ABG PH 7.36 (7.37-7.43); ABG PO2 114 MMHG (79-93); ABG TCO2 29.8 MMOL/L (21.0-31.0)
[2021-08-04 08:28] LABS: INSPIRED O2 50% BIPAP; PATIENT TEMP 36.5; VENTILATOR NO
[2021-08-04] MEDS ORDERED: GBPN600T PO (09:53)
[2021-08-04] MEDS ORDERED: LIRA0.6P3 INJ (09:53)
[2021-08-04] MEDS ORDERED: FOLI1TAB33 PO (09:53)
[2021-08-04] MEDS ORDERED: SITA100T12 PO (09:53)
[2021-08-04] MEDS ORDERED: INSU100I23 SC (09:53)
[2021-08-04] MEDS ORDERED: ACET-2422 PO (09:53)
[2021-08-04] MEDS ORDERED: GLUC500T10 PO (09:53)
[2021-08-04] MEDS ORDERED: OMEP20CA18 PO (09:53)
[2021-08-04] MEDS ORDERED: ATOR40TA70 PO (09:53)
[2021-08-04] MEDS ORDERED: INSU100I29 SC (09:53)
--- NOTE | 2021-08-04 11:30 | Tele-ICU Consult ---
History of Present Illness History of Present Illness Date Seen by Provider: August 04, 2021 Time Seen by Provider: 11:29 Date of Admission (Tele-ICU Physician , consultation) Available chart/ vitals / labs / Images reviewed H&P is from ER notes Patient's information available about PMH, Shx, Fhx allergy reviewed in EMR. ROS as per chart and RN report Now in ICU, hemodynamically stable Video assessment done using teleICU camera, rest of exam as per RN Discussed with RN. Consultants: Hospital course: Pt is a 66 y/o female, direct admit from an outside hospital. Pt found to have Sepsis-UTI and resp failure, requiring Bipap therpy. Pt transafered for highte level of care with ICU capabilities. 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 Discussed with RN to reach out if any questions or concerns A total of 33 minutes of critical care time was devoted to this patient today, required to treat and/or prevent further deterioration of critical care condition ( as above ) . Allergies and Home Medications Allergies Coded Allergies: canagliflozin (Verified Allergy, Unknown, 04/23/19) Home Medications Acetaminophen 650 Mg Tablet.er, 650-1,300 MG PO Q8H PRN for PAIN-MILD (1-4), (Reported) Amlodipine Besylate 5 Mg Tablet, 5 MG PO DAILY, (Reported) Atorvastatin Calcium 40 Mg Tablet, 40 MG PO HS, (Reported) Folic Acid 1 Mg Tablet, 2 MG PO DAILY, (Reported) TAKES 2 (1MG) TABS Gabapentin 600 Mg Tablet, 600 MG PO 0700,1600,2300, (Reported) Glucosamine HCl 500 Mg Tablet, 1,000 MG PO DAILY, (Reported) TAKES 2 (500MG) TABS Insulin Detemir 100 Unit/Ml (3 Ml) Insuln.pen, 26 UNITS SC HS, (Reported) Insulin Lispro 100 Unit/Ml Insuln.pen, 18 UNITS SC AC, (Reported) Levothyroxine Sodium 175 Mcg Tablet, 175 MCG PO DAILY, (Reported) Liraglutide 0.6 Mg/0.1 Ml (18 Mg/3 Ml) Pen.injctr, 1.2 MG INJ DAILY, (Reported) Lisinopril 5 Mg Tablet, 5 MG PO HS, (Reported) Multivitamin 1 Each Tablet, 1 TAB PO DAILY, (Reported) Omeprazole 20 Mg Capsule.dr, 20 MG PO BID, (Reported) Sitagliptin Phosphate 100 Mg Tablet, 100 MG PO DAILY, (Reported) Past Medical/Social/Family Hx Immunizations Up To Date Date of Pneumonia Vaccine: Dec 26, 2018 Current Status Primary Language: Montserratian Review of Systems Constitutional: see HPI Focused Exam Lactate Level 08/03/21 22:55: Lactic Acid Level 1.37 Height, Weight, BMI Height: 5'5.00" Weight: 380lbs. 0.0oz. [id number]; 72.85 BMI Method: Exam Exam Patient acknowledged, consented, and participated in this virtual visit which was conducted using real time audio/video Vital Signs Date Time Temp Pulse Resp B/P (MAP) Pulse Ox O2 Delivery O2 Flow Rate FiO2 08/04/21 10:32 95 Nasal Cannula 4.00 08/04/21 10:15 120/56 08/04/21 10:00 80 28 110/101 90 Nasal Cannula 3.00 08/04/21 09:15 14 91 Nasal Cannula 3.00 08/04/21 09:00 84 48 124/64 85 Nasal Cannula 3.00 08/04/21 08:36 36.5 Nasal Cannula 3.00 08/04/21 08:00 74 18 150/64 96 NIV Bilevel 50.00 08/04/21 08:00 36.8 08/04/21 08:00 92 NIV Bilevel 50 08/04/21 07:34 70 08/04/21 07:27 70 39 98 50.00 08/04/21 07:00 68 23 128/50 98 NIV Bilevel 50.00 08/04/21 06:00 71 24 155/61 98 NIV Bilevel 50.00 08/04/21 05:00 60 16 109/50 93 NIV Bilevel 50.00 08/04/21 04:48 NIV Bilevel 50.00 08/04/21 04:00 65 24 141/67 94 NIV Bilevel 40.00 08/04/21 04:00 92 NIV Bilevel 40 08/04/21 03:34 37.2 NIV Bilevel 40.00 08/04/21 03:00 70 21 128/52 94 NIV Bilevel 40.00 08/04/21 02:00 67 11 99/46 94 NIV Bilevel 40.00 08/04/21 01:57 68 25 95 50.00 08/04/21 01:25 NIV Bilevel 50.00 08/04/21 01:00 72 08/04/21 01:00 72 22 119/57 97 NIV Bilevel 60.00 08/04/21 00:21 94 NIV Bilevel 60 08/04/21 00:09 37.4 NIV Bilevel 60.00 08/04/21 00:00 70 18 101/45 98 NIV Bilevel 75.00 08/03/21 23:12 72 98 75 08/03/21 22:59 72 29 110/47 98 NIV Bilevel 75.00 08/03/21 22:45 70 18 92/36 97 NIV Bilevel 75.00 08/03/21 22:30 95 NIV Bilevel 75 08/03/21 22:30 79 16 128/63 96 NIV Bilevel 75.00 08/03/21 22:30 79 29 97 100.00 08/03/21 22:26 80 15 117/48 96 NIV Bilevel 75.00 08/03/21 22:26 80 08/03/21 22:20 37.5 NIV Bilevel 75.00 I & O 08/04/21 07:00 Intake Total 2560 ml Output Total 750 ml Balance 1810 ml Height & Weight Height: 5'5.00" Weight: 380lbs. 0.0oz. [id number]; 72.85 BMI Method: General Appearance: No Apparent Distress Capillary Refill: Less Than 3 Seconds Results Lab Laboratory Tests 08/04/21 04:45 Assessment/Plan Assessment/Plan ` SHULZHENKO,JOSSIE V MD August 04, 2021 11:30
[2021-08-04] MEDS ORDERED: ACETAMINOPHEN ER 650 MG (TYLENOL ARTHRITIS) PO PRN (12:15)
[2021-08-04 15:01] VITALS: BP 141/70
[2021-08-04] MEDS: GABAPENTIN 600 MG (NEURONTIN) TAB PO SCH ×2 (15:38→23:34)
[2021-08-04] MEDS: morphine INJ 4 MG/ML 1 ML (VIAL/SYRINGE) IV PRN (15:39)
[2021-08-04] MEDS ORDERED: INSULIN LISPRO 18 UNIT SC SCH (17:00)
[2021-08-04 18:49] VITALS: BP 158/66
[2021-08-04] MEDS: PANTOPRAZOLE 20 MG TABLET (PROTONIX) PO SCH (20:19)
[2021-08-04] MEDS: lisINopril 5 MG (PRINIVIL) TABLET PO SCH (20:19)
[2021-08-04] MEDS: MICONAZOLE 2% POWDER (DESENEX AF) 90 GM TOP SCH ×2 (20:20→20:39)
[2021-08-04] MEDS ORDERED: OMEPRAZOLE 20 MG (PriLOSEC) CAP NON-FORMULARY PO SCH (21:00)
[2021-08-04] MEDS ORDERED: NON-FORMULARY MEDICATION 1 EA EA (Insulin Detemir (Levemir Flextouch) 26 UNITS) SC SCH (21:00)
[2021-08-04 21:40] VITALS: BP 154/64
[2021-08-05] MEDS ORDERED: VANCOMYCIN 1,750 MG/NS 500 ML IVPB IV SCH ×2
[2021-08-05] MEDS: CEFEPIME INJECTION 1,000 MG in NS (IVPB) 50 ML IV SCH ×2 (00:54→05:56)
[2021-08-05 02:15] VITALS: BP 151/66
[2021-08-05] MEDS: RT-ALBUTEROL/IPRATROPIUM 3 ML (DUONEB) VIAL INH SCH ×6 (02:15→21:58)
[2021-08-05 04:44] LABS: BASOPHILS % (AUTO) 0 % (0-10); EOSINOPHILS # (AUTO) 0.2 10^3/uL (0.0-0.3); EOSINOPHILS % (AUTO) 1 % (0-10); HEMATOCRIT 32 % (35-52); HEMOGLOBIN 9.3 g/dL (11.5-16.0); LYMPHOCYTES # (AUTO) 1.8 10^3/uL (1.0-4.0); LYMPHOCYTES % (AUTO) 13 % (12-44); MEAN CORPUSCULAR HEMOGLOBIN 26 pg (25-34); MEAN CORPUSCULAR HGB CONC 30 g/dL (32-36); MEAN CORPUSCULAR VOLUME 89 fL (80-99); MEAN PLATELET VOLUME 9.7 fL (9.0-12.2); MONOCYTES % (AUTO) 7 % (0-12); NEUTROPHILS # (AUTO) 10.5 10^3/uL (1.8-7.8); NEUTROPHILS % (AUTO) 78 % (42-75); PLATELET COUNT 326 10^3/uL (130-400); WHITE BLOOD COUNT 13.5 10^3/uL (4.3-11.0)
[2021-08-05 04:59] LABS: ALBUMIN 3.1 GM/DL (3.2-4.5); POTASSIUM 4.6 MMOL/L (3.6-5.0)
[2021-08-05 05:00] LABS: CALCIUM 8.4 MG/DL (8.5-10.1)
[2021-08-05 05:02] LABS: TOTAL PROTEIN 6.7 GM/DL (6.4-8.2)
[2021-08-05 05:02] LABS: ABG BASE EXCESS 1.6 MMOL/L (-2.5-2.5); ABG OXYGEN SATURATION 96 % (94-100); ABG PCO2 51 MMHG (35-45); ABG PO2 72 MMHG (79-93); ABG TCO2 28.5 MMOL/L (21.0-31.0)
[2021-08-05 05:03] LABS: ALLENS TEST YES-POS; INSPIRED O2 30%; PATIENT TEMP 36.2; VENTILATOR NO
[2021-08-05 05:03] LABS: BILIRUBIN,TOTAL 0.7 MG/DL (0.1-1.0)
[2021-08-05 05:04] LABS: ABG PH 7.34 (7.37-7.43)
[2021-08-05 05:05] LABS: CREATININE SERUM 0.86 MG/DL (0.60-1.30); PHOSPHORUS 3.1 MG/DL (2.3-4.7)
[2021-08-05] MEDS: POTASSIUM CL 10MEQ/50ML IVPB 50 ML IV SCH (05:05)
[2021-08-05] MEDS: KCL 20 MEQ TAB (K-DUR) PO SCH (05:05)
[2021-08-05 05:08] LABS: MAGNESIUM 1.8 MG/DL (1.6-2.4)
[2021-08-05] MEDS: MAGNESIUM 1 GM/100 ML IVPB 100 ML IV SCH (05:21)
[2021-08-05] MEDS: ALPRAZolam 0.5 MG (XANAX) TAB PO SCH ×6 (05:55→23:11)
[2021-08-05] MEDS: MULTIVIT W/MINERALS TAB (THERAGRAN M) PO SCH (05:55)
[2021-08-05] MEDS: inSUlin ASPART (NovoLOG) 1 UNIT/0.01 ML (CHARGE PER UNIT) SC SCH ×7 (05:56→21:08)
[2021-08-05] MEDS: LEVOTHYROXINE 100 MCG (LEVOTHROID) TAB PO SCH (05:56)
[2021-08-05] MEDS: LEVOTHYROXINE 75 MCG (LEVOTHROID) TABLET PO SCH (05:56)
[2021-08-05] MEDS: GABAPENTIN 600 MG (NEURONTIN) TAB PO SCH ×3 (05:58→23:11)
--- NOTE | 2021-08-05 06:08 | Progress Note ---
Subjective Date Seen by a Provider: August 05, 2021 Time Seen by a Provider: 09:30 Subjective/Events-last exam Pt is doing a lot better Remains on BiPAP during naps and bedtime Transferring to 4th floor PT and OT ordered Dr. Talamantes will evaluate right hip pain and get an x-ray Reviewed meds and labs Review of Systems General: Fatigue, Malaise Pulmonary: Dyspnea Focused Exam Lactate Level 08/03/21 22:55: Lactic Acid Level 1.37 Objective Exam Last Set of Vital Signs Vital Signs Date Time Temp Pulse Resp B/P (MAP) Pulse Ox O2 Delivery O2 Flow Rate FiO2 08/05/21 05:00 36.2 NIV Bilevel 30.00 08/05/21 05:00 68 26 98 08/05/21 04:00 30 Capillary Refill : Less Than 3 Seconds I&O Intake and Output 08/05/21 00:00 Intake Total 5775 ml Output Total 1900 ml Balance 3875 ml Intake Oral 2440 ml IV Total 3335 ml Output Urine Total 1900 ml General: Alert, Oriented X3, Cooperative, No Acute Distress Lungs: Clear to Auscultation, Normal Air Movement Psych/Mental Status: Mental Status NL, Mood NL Results Lab Laboratory Tests 08/04/21 08:22: Blood Gas Puncture Site RT RAD, Blood Gas Patient Temperature 36.5, Arterial Blood pH 7.36L, Arterial Blood Partial Pressure CO2 50H, Arterial Blood Partial Pressure O2 114H, Arterial Blood HCO3 28H, Arterial Blood Total CO2 29.8, Arterial Blood Oxygen Saturation 99, Arterial Blood Base Excess 3.2H, Juve Test NA, Blood Gas Ventilator Setting NO, Blood Gas Inspired Oxygen 50% BIPAP 08/04/21 10:57: Glucometer 287H 08/04/21 16:22: Glucometer 291H 08/04/21 20:04: Glucometer 269H 08/05/21 04:25: White Blood Count 13.5H, Red Blood Count 3.56L, Hemoglobin 9.3L, Hematocrit 32L, Mean Corpuscular Volume 89, Mean Corpuscular Hemoglobin 26, Mean Corpuscular Hemoglobin Concent 30L, Red Cell Distribution Width 17.1H, Platelet Count 326, Mean Platelet Volume 9.7, Immature Granulocyte % (Auto) 1, Neutrophils (%) (Auto) 78H, Lymphocytes (%) (Auto) 13, Monocytes (%) (Auto) 7, Eosinophils (%) (Auto) 1, Basophils (%) (Auto) 0, Neutrophils # (Auto) 10.5H, Lymphocytes # (A uto) 1.8, Monocytes # (Auto) 1.0, Eosinophils # (Auto) 0.2, Basophils # (Auto) 0.0, Immature Granulocyte # (Auto) 0.1, Sodium Level 135, Potassium Level 4.6, Chloride Level 101, Carbon Dioxide Level 25, Anion Gap 9, Blood Urea Nitrogen 19H, Creatinine 0.86, Estimat Glomerular Filtration Rate 74, BUN/Creatinine Ratio 22, Glucose Level 250H, Calcium Level 8.4L, Corrected Calcium 9.1, Phosphorus Level 3.1, Magnesium Level 1.8, Total Bilirubin 0.7, Aspartate Amino Transf (AST/SGOT) 21, Alanine Aminotransferase (ALT/SGPT) 20, Alkaline Phosphatase 96, Total Protein 6.7, Albumin 3.1L 08/05/21 04:55: Blood Gas Puncture Site L RAD, Blood Gas Patient Temperature 36.2, Arterial Blood pH 7.34*L, Arterial Blood Partial Pressure CO2 51H, Arterial Blood Partial Pressure O2 72L, Arterial Blood HCO3 27, Arterial Blood Total CO2 28.5, Arterial Blood Oxygen Saturation 96, Arterial Blood Base Excess 1.6, Juve Test YES-POS, Blood Gas Ventilator Setting NO, Blood Gas Inspired Oxygen 30% Assessment/Plan Assessment/Plan Assess & Plan/Chief Complaint Assessment: Sepsis UTI Super morbid obesity BMI 73 Acute on chronic respiratory failure Obesity hypoventilation syndrome CO2 retention requiring BiPAP Hypertension Hyperlipidemia Diabetes Paroxysmal atrial fibrillation Anticoagulation contraindicated due to life-threatening bleed in the past Hypothyroidism Right hip pain Plan: Supportive care IV antibiotics ICU BiPAP 08/05/21: Monitor closely Transfer to 4th floor Dr Talamantes right hip pain Diagnosis/Problems Diagnosis/Problems (1) Sepsis (2) Hypotension Status: Resolved Resolution Date/Time: 04/28/20 @ 13:41 (3) Hypothyroidism Status: Chronic (4) Renal failure (ARF), acute on chronic Status: Acute (5) Hyperlipidemia Status: Chronic (6) Atrial fibrillation Status: Chronic (7) Coronary artery disease Status: Chronic (8) Diabetes Status: Chronic (9) COPD (chronic obstructive pulmonary disease) Status: Chronic EDEL BLISS DO August 05, 2021 06:08
[2021-08-05 06:51] VITALS: BP 121/59
--- NOTE | 2021-08-05 07:38 | Diagnostic Imaging Report ---
INDICATION: Respiratory distress Study compared to 08/04/2021. FINDINGS: Right IJ at the upper SVC stable. Bilateral infiltrates and cardiomegaly with central vascular congestion all unchanged. There is no pneumothorax. No significant pleural fluid. IMPRESSION: Similar enlargement of the heart, vascular distention and probable perihilar edema versus pneumonia. No significant pleural collection or pneumothorax. Dictated by: Dictated on workstation # [id number]
[2021-08-05] MEDS ORDERED: NON-FORMULARY MEDICATION 1 EA EA (Sitagliptin Phosphate (Januvia) 100 MG) PO SCH (09:00)
[2021-08-05] MEDS ORDERED: GLUCOSAMINE HCL 1000 MG PO SCH (09:00)
[2021-08-05] MEDS ORDERED: NON-FORMULARY MEDICATION 1 EA EA (Liraglutide (Victoza 3-Pak) 1.2 MG) INJ SCH (09:00)
[2021-08-05] MEDS ORDERED: NON-FORMULARY MEDICATION 1 EA EA (Levothyroxine Sodium 175 MCG) PO SCH (09:00)
[2021-08-05] MEDS: PANTOPRAZOLE 20 MG TABLET (PROTONIX) PO SCH ×2 (09:08→20:19)
[2021-08-05] MEDS: MICONAZOLE 2% POWDER (DESENEX AF) 90 GM TOP SCH ×2 (09:08→20:18)
[2021-08-05] MEDS: FOLIC ACID 1 MG TAB PO SCH (09:08)
[2021-08-05] MEDS: amLODIPine 5 MG (NORVASC) TAB PO SCH (09:08)
[2021-08-05] MEDS: SENNOSIDES 8.6 MG (SENOKOT) TAB PO SCH ×2 (09:09→20:20)
[2021-08-05] MEDS: DOCUSATE SODIUM 100 MG (COLACE) CAP PO SCH ×2 (09:09→20:19)
--- NOTE | 2021-08-05 11:11 | Consultation-Cardiology ---
HPI-Cardiology Cardiology Consultation Date of Consultation 08/05/21 Date of Admission Time Seen by Provider: 09:30 Indication: hx CAD, CHF HPI Patient is a 66 y/o female with history of CAD, PAF, CHF. Presented to the ER with complaints of increased fatigue and some increased dysnea at home. Went to PCP office for routine checkup but was unable to get out of her car. Decided to go home but again was unable to get out of care and decided to call fire dept and then come to ER. Denies any chest pain, reports increased fatigue and dyspnea on exertion over the past several months. Reports weight gain over the last year. Home Medications & Allergies Allergies: Coded Allergies: canagliflozin (Verified Allergy, Unknown, 04/23/19) Home Medication List Reviewed: Yes PMG-Eexoxr-Jjhkhx Hx Patient Social History Marital Status: single, Employed/Student: unemployed Smoking Status: Former Smoker Former smoker/When Quit: August 08, 2007 Type Used: Cigarettes Immunizations Up To Date Date of Pneumonia Vaccine: Dec 26, 2018 Date of Influenza Vaccine: Jan 16, 2020 Past Medical History CAD PAF CHF Family Medical History Significant Family History: Heart Disease, Diabetes, Hypertension Review of Systems-General Review of Systems Constitutional: see HPI, malaise, weakness EENTM: no symptoms reported Respiratory: dyspnea on exertion Cardiovascular: no symptoms reported Gastrointestinal: no symptoms reported Musculoskeletal: back pain, joint pain Skin: no symptoms reported Psychiatric/Neurological: Anxiety All Other Systems Reviewed Negative Unless Noted: Yes Reviewed Test Results Reviewed Test Results Lab Laboratory Tests 08/04/21 16:22: Glucometer 291H 08/04/21 20:04: Glucometer 269H 08/05/21 04:25: White Blood Count 13.5H, Red Blood Count 3.56L, Hemoglobin 9.3L, Hematocrit 32L, Mean Corpuscular Volume 89, Mean Corpuscular Hemoglobin 26, Mean Corpuscular Hemoglobin Concent 30L, Red Cell Distribution Width 17.1H, Platelet Count 326, Mean Platelet Volume 9.7, Immature Granulocyte % (Auto) 1, Neutrophils (%) (Auto) 78H, Lymphocytes (%) (Auto) 13, Monocytes (%) (Auto) 7, Eosinophils (%) (Auto) 1, Basophils (%) (Auto) 0, Neutrophils # (Auto) 10.5H, Lymphocytes # (Auto) 1.8, Monocytes # (Auto) 1.0, Eosinophils # (Auto) 0.2, Basophils # (Auto) 0.0, Immature Granulocyte # (Auto) 0.1, Sodium Level 135, Potassium Level 4.6, Chloride Level 101, Carbon Dioxide Level 25, Anion Gap 9, Blood Urea Nitrogen 19H, Creatinine 0.86, Estimat Glomerular Filtration Rate 74, BUN/Creatinine Ratio 22, Glucose Level 250H, Calcium Level 8.4L, Corrected Calcium 9.1, Phosphorus Level 3.1, Magnesium Level 1.8, Total Bilirubin 0.7, Aspartate Amino Transf (AST/SGOT) 21, Alanine Aminotransferase (ALT/SGPT) 20, Alkaline Phosphatase 96, Total Protein 6.7, Albumin 3.1L 08/05/21 04:55: Blood Gas Puncture Site L RAD, Blood Gas Patient Temperature 36.2, Arterial Blood pH 7.34*L, Arterial Blood Partial Pressure CO2 51H, Arterial Blood Partial Pressure O2 72L, Arterial Blood HCO3 27, Arterial Blood Total CO2 28.5, Arterial Blood Oxygen Saturation 96, Arterial Blood Base Excess 1.6, Juve Test YES-POS, Blood Gas Ventilator Setting NO, Blood Gas Inspired Oxygen 30% 08/05/21 11:26: Glucometer 231H Microbiology 08/03/21 MRSA Screen - Final, Complete MRSA not isolated Physical Exam Physical Exam Vital Signs Vital Signs - First Documented 08/03/21 08/03/21 08/03/21 22:20 22:26 22:30 Temp 37.5 Pulse 80 Resp 15 B/P (MAP) 117/48 Pulse Ox 96 O2 Delivery NIV Bilevel O2 Flow Rate 75.00 FiO2 75 Capillary Refill : Less Than 3 Seconds Height, Weight, BMI Height: 5'5.00" Weight: 380lbs. 0.0oz. 172.106425ez; 72.85 BMI Method: General Appearance: No Apparent Distress, WD/WN, Anxious, Chronically ill, Obese Eyes: Bilateral Eye Normal Inspection, Bilateral Eye PERRL HEENT: PERRL/EOMI, Normal ENT Inspection, Pharynx Normal Neck: Full Range of Motion, Normal Inspection, Non Tender, Supple, Carotid Bruit Respiratory: Chest Non Tender, Lungs Clear, Normal Breath Sounds, No Accessory Muscle Use, No Respiratory Distress, Decreased Breath Sounds Cardiovascular: Regular Rate, Rhythm, No Edema, No Gallop, No JVD, No Murmur, Normal Peripheral Pulses Gastrointestinal: Normal Bowel Sounds, No Organomegaly, No Pulsatile Mass, Non Tender, Soft Back: Normal Inspection, No CVA Tenderness, No Vertebral Tenderness Extremity: Normal Capillary Refill, Normal Inspection, Normal Range of Motion, Non Tender, No Calf Tenderness, No Pedal Edema Neurologic/Psychiatric: Alert, Oriented x3, No Motor/Sensory Deficits, Normal Mood/Affect Skin: Normal Color, Warm/Dry Lymphatic: No Adenopathy A/P-Cardiology Admission Diagnosis Urosepsis CAD PAF HTN Assessment/Plan Urosepsis, management per medical services Coronary artery disease with history of stents x2 to the RCA,3.512 mm vision stent in 2009. 3.012 mm vision stent in 2010 with most recent cardiac catheterization in November 2015 revealing patent stents to the RCA with otherwise nonobstructive disease. Planning to evaluate 2D echo Paroxysmal atrial fibrillation, diagnosed April 2019, was hospitalized for A. fib with RVR with tachybradycardia episodes, converted to sinus rhythm, currently in sinus rhythm History of GI bleed on 04/27/2020 requiring blood transfusion. 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 Hyperlipidemia, I will evaluate lipid/CMP Dyspnea on exertion, secondary to morbid obesity, COPD. Diabetes mellitus-managed by primary care physician, continue to monitor Severe obesity, BMI 74 was referred for possible weight loss surgery in the past, however patient has decided against surgery at this time. Patient continues to gain weight. We had a long discussion about the need for weight loss. Bilateral lower extremity pain and swelling-discussed weight loss. Mild bilateral nonobstructive carotid artery stenosis, most recent carotid duplex done in November 2018, continue to monitor. Hypothyroidism, continue to monitor thyroid function test. Obstructive sleep apnea Thank you for allowing us to participate in the management of Ms. Landrum. This is Dominic Sinclair PA-C, as a scribe for Dr. Garcia. Patient was seen and evaluated with Dominic, I discussed the management plan and examined the patient. I agree with the current plan Patient was admitted for generalized weakness and loss of energy. No chest pain was reported. Continue to monitor blood pressure and lipids. No changes are recommended. DOMINIC JANG August 05, 2021 11:11 BELLE GARCIA MD August 06, 2021 13:18
--- NOTE | 2021-08-05 11:18 | Occupational Therapy Eval ---
OT Evaluation-General/PLF Medical Diagnosis Admission Date August 03, 2021 at 22:20 Medical Diagnosis: urosepsis Onset Date: August 03, 2021 Therapy Diagnosis Therapy Diagnosis: decreased ADL status Height/Weight Height (Feet): 5 Height (Inches): 5.00 Weight (Pounds): 380 Weight (Ounces): 0.0 Precautions Precautions/Isolations: Fall Prevention, Standard Precautions Referral Physician: Amita Referral Reason: Evaluation/Treatment Medical History Pertinent Medical History: Arthritis, CAD, COPD, DM, GERD, HTN, Hypothroidism, Neuropathy Additional Medical History obesity, COPD, afib, CAD, HTN, neuropathy, GERd, arthritis, DM Current History Pt in her car but was unable to get out, first responders able to get her out of the car and transport to [facility]. t found to have sepsis from UTI, transferred to [facility] for higher level care. Social History Home: Single Level Current Living Status: Spouse Entry Into Home: Level Entry ADL-Prior Level of Function SCALE: Activities may be completed with or without assistive devices. 5-Vastkavvrw-fgtqmod completes the activity by him/herself with no assistance from a helper. 5-Set-up or Clean-up Assistance-helper sets up or cleans up; patient completes activity. [place] assists only prior to or following the activity. 4-Supervision or Touching Assistance-helper provides verbal cues and/or touching/steadying and/or contact guard assistance as patient completes activity. Assistance may be provided throughout the activity or intermittently. 3-Partial/Moderate Assistance-helper does LESS THAN HALF the effort. [place] lifts, holds or supports trunk or limbs, but provides less than half the effort. 2-Substantial/Maximal Assistance-helper does MORE THAN HALF the effort. [place] lifts or holds trunk or limbs and provides more than half the effort. 8-Iebbxiyfr-dlbnta does ALL the effort. Patient does none of the effort to complete the activity. Or, the assistance of 2 or more helpers is required for the patient to complete the activity. If activity was not attempted, code reason: 7-Patient Refused. 9-Not Applicable-not attempted and the patient did not perform the activity before the current illness, exacerbation or injury. 10-Not Attempted due to Environmental Limitations-(lack of equipment, weather restraints, etc.). 88-Not Attempted due to Medical Conditions or Safety Concerns. ADL PLOF Comments Pt required assistance with ADLs and functional mobility at [facility]. she uses a walker within the home, requiring assistance to stand from lift chairs, and assistance with O2 tubing. outside the house she uses a manual w/c, unable to propel herself requiring assistance. With ADLs, pt able to don UE clothing, but requires assistance with all other ADLs. she requires assistance managing clothing and hygiene with toileting, she has tried to use AE for wiping but unable to use successfully. Her assists her with lifting her legs in/out of tub. Her completes cooking, cleaning and bills. Self Care: Needed Some Help Functional Cognition: Independent DME/Equipment: Bath Bench, Grab Bars, Tub/Shower OT Current Status Subjective Pt in bed, agreeable to OT tx. Pt hyperverbal, requiring redirection to conversation and she often started talking about other topics,. Mental Status/Objective Patient Orientation: Normal For Age Attachments: Mack Catheter, IV, Oxygen Current Upper Extremity ROM WFL, BUE shoulder flexion to approx 150 degrees Upper Extremity Coordination WFL Upper Extremity Strength grossly 3+/5 ADL-Treatment Eating (QC): 6 Oral Hygiene (QC): 5 (per clinical judgment.) Lower Body Dressing (QC): 1 (per clinical judgment.) On/Off Footwear (QC): 1 (per clinical judgment.) Toileting Hygiene (QC): 1 (catheter) Other Treatments Pt in bed, agreeable to OT tx. Pt provided information about PLOF and home set up and participated in UE screen. Pt required redirection to conversations, as she often started talking about other topics. Pt feels like she is weaker now then she usually is. In order to increase BUE strength and activity tolerance, pt completed x10 reps shoulder flexion, front punch and elbow flexion/extension. Post tx, pt in bed, call light in reach and all needs met. Dr. Talamantes present Education OT Patient Education: Correct positioning, Energy conservation, Modified ADL techniques, Progress toward Goal/Update tx plan, Purpose of tx/functional activities Teaching Recipient: Patient Teaching Methods: Discussion Response to Teaching: Verbalize Understanding OT Group Home Goals Retort Furnace Helper Goals Time Frame: August 21, 2021 Eating (QC): 6 Oral Hygiene (QC): 6 Shower/Bathe Self (QC): 2 Upper Body Dressing (QC): 5 Additional Goals: 1-Demonstrate ADL Tasks, 2-Verbalize Understanding, 3- ImproveStrength/Ron 1=Demonstrate adherence to instructed precautions during ADL tasks. 2=Patient will verbalize/demonstrate understanding of assistive devices/modifications for ADL. 3=Patient will improve strength/tolerance for activity to enable patient to perform ADL's. OT Education/Plan Problem List/Assessment Assessment: Decreased Activ Tolerance, Decreased UE Strength, Impaired Funct Balance, Impaired I ADL's, Impaired Self-Care Skills Discharge Recommendations Plan/Recommendations: Continue POC Treatment Plan/Plan of Care Patient would benefit from OT for education, treatment and training to promote independence in ADL's, mobility, safety and/or upper extremity function for ADL's. Plan of Care: ADL Retraining, Functional Mobility, UE Funct Exercise/Act Treatment Duration: August 21, 2021 Frequency: 3 times per week (3-5 times a week) Rehab Potential: Guarded Time/GCodes Start Time: 10:47 Stop Time: 11:04 Total Time Billed (hr/min): 17 Billed Treatment Time 1HENRIK ADDISON OT August 05, 2021 11:18
--- NOTE | 2021-08-05 11:19 | Consultation - Ortho ---
Consult - Ortho Subjective Date of Exam 08/05/21 Chief Complaint Back right hip and right leg pain HPI/Events since last exam Mrs. Sheldon is a 66-year-old white female has been complaining of right hip pain her whole life. She states it runs in the family. I asked her if it was arthritis and she stated she did not think so. She ambulates with a walker and when she is walking she does not have any hip pain. She has hip pain trying to get up. She is decreased her walking as she becomes increasingly short of breath. She states she gets right leg pain and occasional numbness or tingling but she does have diabetic neuropathy. In 2020 she was at and at that time they took x-rays of her right hip and also did a scan which she is not sure what it was whether it was a CT scan or an MRI.She states the machine she got and was as big as the room so it sounds like she had an open MRI.She states she does not know the results but it sounds like they found nothing. So her hip pain is nothing new. Her back pain is occasional. Her leg pain is off and on. Medical, Surgical History Reviewed and no additions or changes Social History Reviewed and no additions or changes Family History Reviewed and no additions or changes Review of Systems Reviewed and no additions or changes Allergies: Coded Allergies: canagliflozin (Verified Allergy, Unknown, 04/23/19) Home Meds Reported Medications Folic Acid (Folic Acid) 1 Mg Tablet, 2 MG PO DAILY, TAB TAKES 2 (1MG) TABS 08/04/21 Sitagliptin Phosphate (Januvia) 100 Mg Tablet, 100 MG PO DAILY, TAB 08/04/21 Atorvastatin Calcium (Atorvastatin Calcium) 40 Mg Tablet, 40 MG PO HS, TAB 08/04/21 Liraglutide (Victoza 3-Juanito) 0.6 Mg/0.1 Ml (18 Mg/3 Ml) Pen.injctr, 1.2 MG INJ DAILY, EA 08/04/21 Omeprazole (Omeprazole) 20 Mg Capsule.dr, 20 MG PO BID, CAP 08/04/21 Insulin Lispro (Humalog Kwikpen) 100 Unit/Ml Insuln.pen, 18 UNITS SC AC, UNITS 08/04/21 Insulin Detemir (Levemir Flextouch) 100 Unit/Ml (3 Ml) Insuln.pen, 26 UNITS SC HS, UNIT 08/04/21 Gabapentin (Gabapentin) 600 Mg Tablet, 600 MG PO 0700,1600,2300, TAB 08/04/21 Glucosamine HCl (Glucosamine HCl) 500 Mg Tablet, 1000 MG PO DAILY, TAB TAKES 2 (500MG) TABS 08/04/21 Acetaminophen (Acetaminophen ER) 650 Mg Tablet.er, 650-1300 MG PO Q8H PRN for PAIN-MILD (1-4), TAB 08/04/21 Amlodipine Besylate (Amlodipine Besylate) 5 Mg Tablet, 5 MG PO DAILY, TAB 01/05/20 Levothyroxine Sodium (Levothyroxine Sodium) 175 Mcg Tablet, 175 MCG PO DAILY, TAB 04/23/19 Lisinopril (Lisinopril) 5 Mg Tablet, 5 MG PO HS, TAB 04/23/19 Multivitamin (Multivitamins) 1 Each Tablet, 1 TAB PO DAILY, TAB 04/23/19 Discontinued Reported Medications Insulin Aspart (Novolog Flexpen) 300 Units/3 Ml Solution, UNITS SQ ACHS, EA TAKES 12 UNITS ALONG WITH THE SLIDING SCALE CORRECTION: 181-220=1 UNIT 221-260=2 UNITS 261-300=3 UNITS 301-350=4 UNITS 351-400= 5 UNITS 401+=6 UNITS IF ABOVE 350 GIVE CORRECTION BOLUS AND RECHECK GLUCOSE IN 2 HOURS 04/28/20 Insulin Aspart (Novolog Flexpen) 300 Units/3 Ml Solution, 12 UNITS SQ AC, EA 12 UNITS WITH MEALS ALONG WITH A SLIDING SCALE 04/28/20 Pantoprazole Sodium (Pantoprazole Sodium) 20 Mg Tablet.dr, 20 MG PO BID, TAB 04/28/20 Glucosamine Sulfate 2Kcl (Glucosamine) 1,000 Mg Tablet, 1000 MG PO DAILY, TAB 04/28/20 Insulin Glargine,Hum.rec.anlog (Lantus Solostar) 100 Unit/1 Ml Insuln.pen, 15 UNIT SQ HS, EA 04/28/20 Melatonin (Melatonin) 5 Mg Tablet, 5 MG PO HS, TAB 04/28/20 Bisacodyl (Dulcolax) 5 Mg Tablet.dr, 5 MG PO Q8H PRN for CONSTIPATION-3RD LINE, TAB 01/05/20 Polyethylene Glycol 3350 (Miralax) 17 Gm Powd.pack, 17 GM PO DAILY PRN for CONSTIPATION-2ND LINE, EACH 04/23/19 Acetaminophen (Acetaminophen Extra Strength) 500 Mg Tablet, 1000 MG PO Q4H PRN for PAIN-MILD (1-4), TAB 04/23/19 Objective Exam Constitutional: [] HEENT: [] Neck: [] Cardiovascular: [] Respiratory: [] Gastrointestinal: [] Genitourinary: [] Skin: [] Back/Spine: [Pain is noted on palpation of the right lower back and right sciatic notch.] Extremities: []Any motion of the right hip and right leg causes pain. She is very difficult to evaluate due to her size. When I palpate the posterior lateral and anterior hip she has pain. Gentle range of motion of the hip causes increased pain. Negative straight leg raise. She does not appear to have any weakness in the right lower extremity but does have some altered sensation. Neurologic: [] Psychiatric: [] Hematologic/lymphatic/immunologic: [] Vital Signs Vital Signs Date Time Temp Pulse Resp B/P (MAP) Pulse Ox O2 Delivery O2 Flow Rate FiO2 08/05/21 10:42 96 Nasal Cannula 3.00 08/05/21 10:00 75 15 135/81 93 Nasal Cannula 3.00 08/05/21 09:23 Nasal Cannula 3.00 08/05/21 09:00 68 17 155/59 97 NIV Bilevel 30.00 08/05/21 08:00 96 NIV Bilevel 30 08/05/21 08:00 36.5 08/05/21 08:00 62 27 133/57 96 NIV Bilevel 30.00 08/05/21 07:00 60 08/05/21 07:00 60 22 130/64 96 NIV Bilevel 30.00 08/05/21 06:51 60 30 95 30.00 08/05/21 06:00 60 11 121/59 96 NIV Bilevel 30.00 08/05/21 05:00 36.2 NIV Bilevel 30.00 08/05/21 05:00 68 26 160/75 98 NIV Bilevel 30.00 08/05/21 04:00 66 21 131/60 93 NIV Bilevel 30.00 08/05/21 04:00 92 NIV Bilevel 30 08/05/21 03:00 68 23 102/47 93 NIV Bilevel 30.00 08/05/21 02:15 67 28 94 30.00 08/05/21 02:00 68 21 151/66 97 NIV Bilevel 30.00 08/05/21 01:00 68 21 134/59 94 NIV Bilevel 30.00 08/05/21 00:50 73 08/05/21 00:00 67 23 124/55 95 NIV Bilevel 30.00 08/05/21 00:00 95 NIV Bilevel 30 08/04/21 23:42 36.2 NIV Bilevel 30.00 08/04/21 23:00 79 17 167/66 93 NIV Bilevel 30.00 08/04/21 22:00 67 19 126/54 92 NIV Bilevel 30.00 08/04/21 21:40 68 25 97 30.00 08/04/21 21:15 NIV Bilevel 30.00 08/04/21 21:00 80 29 154/64 93 High Flow N/C 3.00 08/04/21 20:00 81 16 137/57 95 High Flow N/C 3.00 08/04/21 20:00 96 High Flow N/C 3.00 08/04/21 19:00 High Flow N/C 3.00 08/04/21 19:00 68 08/04/21 19:00 70 26 143/68 94 High Flow N/C 3.00 08/04/21 18:58 36.6 08/04/21 18:49 64 27 95 30.00 08/04/21 18:30 NIV Bilevel 30.00 08/04/21 18:05 Nasal Cannula 5.00 08/04/21 18:00 78 14 158/66 95 NIV Bilevel 30.00 08/04/21 17:00 77 10 142/61 92 NIV Bilevel 30.00 08/04/21 16:00 76 8 150/65 99 NIV Bilevel 30.00 08/04/21 16:00 92 NIV Bilevel 50 08/04/21 15:45 Nasal Cannula 5.00 08/04/21 15:01 73 27 96 30.00 08/04/21 15:00 73 15 141/70 96 NIV Bilevel 30.00 08/04/21 14:00 74 16 137/68 97 NIV Bilevel 30.00 08/04/21 13:25 NIV Bilevel 30.00 08/04/21 13:00 74 08/04/21 13:00 79 8 117/52 93 Nasal Cannula 3.00 08/04/21 12:00 83 13 165/66 97 Nasal Cannula 3.00 08/04/21 12:00 92 NIV Bilevel 50 08/04/21 11:34 37.2 I & O 08/05/21 07:00 Intake Total 4265 ml Output Total 1775 ml Balance 2490 ml Lab Results Laboratory Tests 08/04/21 16:22: Glucometer 291H 08/04/21 20:04: Glucometer 269H 08/05/21 04:25: White Blood Count 13.5H, Red Blood Count 3.56L, Hemoglobin 9.3L, Hematocrit 32L, Mean Corpuscular Volume 89, Mean Corpuscular Hemoglobin 26, Mean Corpuscular Hemoglobin Concent 30L, Red Cell Distribution Width 17.1H, Platelet Count 326, Mean Platelet Volume 9.7, Immature Granulocyte % (Auto) 1, Neutrophils (%) (Auto) 78H, Lymphocytes (%) (Auto) 13, Monocytes (%) (Auto) 7, Eosinophils (%) (Auto) 1, Basophils (%) (Auto) 0, Neutrophils # (Auto) 10.5H, Lymphocytes # (Auto) 1.8, Monocytes # (Auto) 1.0, Eosinophils # (Auto) 0.2, Basophils # (Auto) 0.0, Immature Granulocyte # (Auto) 0.1, Sodium Level 135, Potassium Level 4.6, Chloride Level 101, Carbon Dioxide Level 25, Anion Gap 9, Blood Urea Nitrogen 19H, Creatinine 0.86, Estimat Glomerular Filtration Rate 74, BUN/Creatinine Ratio 22, Glucose Level 250H, Calcium Level 8.4L, Corrected Calcium 9.1, Phosphorus Level 3.1, Magnesium Level 1.8, Total Bilirubin 0.7, Aspartate Amino Transf (AST/SGOT) 21, Alanine Aminotransferase (ALT/SGPT) 20, Alkaline Phosphatase 96, Total Protein 6.7, Albumin 3.1L 08/05/21 04:55: Blood Gas Puncture Site L RAD, Blood Gas Patient Temperature 36.2, Arterial Blood pH 7.34*L, Arterial Blood Partial Pressure CO2 51H, Arterial Blood Partial Pressure O2 72L, Arterial Blood HCO3 27, Arterial Blood Total CO2 28.5, Arterial Blood Oxygen Saturation 96, Arterial Blood Base Excess 1.6, Juve Test YES-POS, Blood Gas Ventilator Setting NO, Blood Gas Inspired Oxygen 30% Microbiology 08/03/21 MRSA Screen - Final, Complete MRSA not isolated Imaging Awaiting x-rays of the right hip Assessment and Plan Assessment Back, right hip and right leg pain Problem List Same Plan The above was discussed with the patient. She can have a combination of pain from her back as well as pain from her hip. I would like to review the x-rays and scans done at [facility] last year of her hip and probably her back. Most likely this is coming from her back but she may have some degenerative changes of her hip.We will see what her x-rays show here Final Diagonsis Back right hip and leg pain Level of the visit: Level 3 NIK WEIR MD August 05, 2021 11:19
[2021-08-05] MEDS: ENOXAPARIN 60 MG/0.6 ML (LOVENOX) SYR SC SCH ×2 (11:47→23:11)
--- NOTE | 2021-08-05 13:51 | Diagnostic Imaging Report ---
HISTORY: Right hip pain COMPARISON: None FINDINGS: 2 views of the right hip are performed. There is severe, end-stage osteoarthritis in the right hip joint with complete joint space loss, subchondral sclerosis and cystlike changes and mild articular surface remodeling. There are prominent marginal osteophytes. No acute fracture is seen. There is soft tissue swelling about the right hip. IMPRESSION: 1. Severe, end-stage osteoarthritis in the right hip joint with mild articular surface remodeling. Dictated by: Dictated on workstation # [id number]
--- NOTE | 2021-08-05 14:05 | Physical Therapy Evaluation ---
PT Evaluation-General Medical Diagnosis Admission Date August 03, 2021 at 22:20 Medical Diagnosis: sepsis, hypotension, ARF Onset Date: August 03, 2021 Therapy Diagnosis Therapy Diagnosis: Impaired mobility, transfers, strength Height/Weight Height (Feet): 5 Height (Inches): 5.00 Weight (Pounds): 380 Weight (Ounces): 0.0 Precautions Precautions/Isolations: Fall Prevention, Standard Precautions Weight Bear Status Right Lower Extremity: Right Full Weight Bearing Left Lower Extremity: Left Full Weight Bearing Referral Physician: Amita Reason for Referral: Evaluation/Treatment Medical History Pertinent Medical History: Arthritis, CAD, COPD, DM, GERD, HTN, Hypothroidism, Neuropathy Reviewed History: Yes Social History Home: Single Level Current Living Status: Spouse Entry Into Home: Level Entry PT Steps Into Home: 0 PT Steps Inside Home: 0 Prior Prior Level of Function SCALE: Activities may be completed with or without assistive devices. 8-Vuwmtmjrmd-mjvddxc completes the activity by him/herself with no assistance from a helper. 5-Set-up or Clean-up Assistance-helper sets up or cleans up; patient completes activity. [place] assists only prior to or following the activity. 4-Supervision or Touching Assistance-helper provides verbal cues and/or touching/steadying and/or contact guard assistance as patient completes activity. Assistance may be provided throughout the activity or intermittently. 3-Partial/Moderate Assistance-helper does LESS THAN HALF the effort. [place] lifts, holds or supports trunk or limbs, but provides less than half the effort. 2-Substantial/Maximal Assistance-helper does MORE THAN HALF the effort. [place] lifts or holds trunk or limbs and provides more than half the effort. 1-Nrjrdbbyp-gldjjj does ALL the effort. Patient does none of the effort to complete the activity. Or, the assistance of 2 or more helpers is required for the patient to complete the activity. If activity was not attempted, code reason: 7-Patient Refused. 9-Not Applicable-not attempted and the patient did not perform the activity before the current illness, exacerbation or injury. 10-Not Attempted due to Environmental Limitations-(lack of equipment, weather restraints, etc.). 88-Not Attempted due to Medical Conditions or Safety Concerns. Bed Mobility: 6 Transfers (B,C,W/C): 6 Gait: 6 Stairs: 88 Indoor Mobility (Ambulation): Independent Stairs: Not Applicalbe Prior Devices Use: Manual wheelchair, Walker PT Evaluation-Current Subjective Patient was in bed upon entering, and consented to be treated. Patient needed to be transferred to have X-Ray done, so coordinated with nursing to end up in wheelchair to be brought down after PT session. Patient complains of R hip pain at the moment. Pain Location: Right Location Body Site: Hip Comment: no numerical value given Pt/Family Goals To be independent Objective Patient Orientation: Person, Place, Situation Attachments: Oxygen, Mack Catheter, IV Telemetry, SpO2, BP cuff, Leg pumps ROM/Strength ROM Lower Extremities limited generally due to obesity Strength Lower Extremities R LE: hip flexion unable to assess due inability to get into correct position. L LE: (knee extension 4+/5, knee flexion 4-/5, DF 4/5); R LE: (knee extension 4+/5, knee flexion 4-/5, DF 4/5) Integumentary/Posture Bowel Incontinence: No Bladder Incontinence: Mack Cath Sensory Vision: Functional Hearing: Functional Sensation Right Lower Extremit: Impaired Sensation Left Lower Extremity: Impaired Sensation Lower Extremities Impaired at feet. Transfers Roll Left to Right (QC): 3 (Chemo) Sit to Lying (QC): 3 (modA) Lying to Sitting/Side of Bed(Q: 3 (modA) Sit to Stand (QC): 3 (modA) Chair/Yaw-yj-Jpqae Xfer(QC): 1 (Chemo from multiple people) Toilet Transfer (QC): 88 Car Transfer (QC): 88 Gait Does the Patient Walk?: Yes Mode of Locomotion: Both Anticipated Mode of Locomotion: Both Walk 10 feet (QC): 88 Walk 50 ft with 2 Turns(QC): 88 Walk 150 ft (QC): 88 Walking 10ft/uneven surface-QC: 88 Gait Assistive Device: FWW Wheelchair Training Does the Pt Use a Wheelchair?: Yes Wheel 50 ft with 2 turns (QC): 1 Wheel 150 ft (QC): 1 Type of Wheelchair: Manual Balance Sitting Static: Good Sitting Dynamic: Fair Standing Static: Poor Standing Dynamic: Poor Treatment Bed mobility, transfers Assessment/Needs Patient demonstrates weakness with bed mobility, and sit to stand transfer and transfering to chair, but was able to do so with min-mod assist and extra time. Once standing, patient was significantly wt bearing through arms on walker, and was unable to stand straight up, and had a hunched posture throughout standing and transfer. Patient was very slow pivoting to chair, and required guidance, extra time and mod assistance throughout. Patient was left in WC for nursing to take to x-ray. Rehab Potential: Poor PT Chief Orthoptist Goals Fdc Goals PT Chief Orthoptist Goals Time Frame: August 12, 2021 Roll Left & Right (QC): 4 Sit to Lying (QC): 3 (CGA) Lying-Sitting on Side/Bed(QC): 3 (CGA) Sit to Stand (QC): 3 (Chemo) Chair/Ada-cq-Lepfm Xfer(QC): 3 (Chemo) Toilet Transfer (QC): 3 (Chemo) Walk 10 feet (QC): 3 PT Plan Problem List Problem List: Activity Tolerance, Functional Strength, Safety, Balance, Gait, Transfer, Bed Mobility, ROM Treatment/Plan Treatment Plan: Continue Plan of Care Treatment Plan: Bed Mobility, Education, Functional Activity Ron, Functional Strength, Group Therapy, Gait, Safety, Therapeutic Exercise, Transfers Treatment Duration: August 12, 2021 Frequency: 6 times per week Estimated Hrs Per Day: .25 hour per day Patient and/or Family Agrees t: Yes Safety Risks/Education Patient Education: Transfer Techniques, Correct Positioning, W/C Management, Safety Issues Teaching Recipient: Patient Teaching Methods: Demonstration, Discussion Response to Teaching: Verbalize Understanding, Return Demonstration Discharge Recommendations Plan To work on mobility, functional strength, and transfers to be independent at home. Therapy Discharge Recommendati: 24 Hour Supervision Time/GCodes Time In: 1255 Time Out: 1307 Total Billed Treatment Time: 12 Total Billed Treatment 1 visit FA CHARISMA LEDESMA PT August 05, 2021 14:05
[2021-08-05] MEDS: cefTRIAXone 2,000 MG/NS 50 ML IVPB IV SCH ×2 (14:12)
--- NOTE | 2021-08-05 15:34 | Tele-ICU Progress Note ---
Subjective Date Seen by a Provider: August 05, 2021 Time Seen by a Provider: 08:21 Subjective/Events-last exam Tele-ICU Physician , Progress Note ) Available chart/ vitals / labs / Images reviewed Video assessment done using teleICU camera, rest of exam as per RN Discussed with RN , EXAM PER RN Events overnight : Afebrile FiO2 - 30% I/O = pos 3 l Drips: Pressors: , hemodynamically stable Consultants: Hospital course: Pt is a 66 y/o female, direct admit from an outside hospital. Pt found to have Sepsis-UTI and resp failure, requiring Bipap therpy. Pt transafered for highte level of care with ICU capabilities. 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 Discussed with RN to reach out if any questions or concerns A total of 33 minutes of critical care time was devoted to this patient today, required to treat and/or prevent further deterioration of critical care condition ( as above ) . Sepsis Event Evaluation Height, Weight, BMI Height: 5'5.00" Weight: 380lbs. 0.0oz. [id number]; 72.85 BMI Method: Focused Exam Lactate Level 08/03/21 22:55: Lactic Acid Level 1.37 Exam Exam Patient acknowledged, consented, and participated in this virtual visit which was conducted using real time audio/video Vital Signs Date Time Temp Pulse Resp B/P (MAP) Pulse Ox O2 Delivery O2 Flow Rate FiO2 08/05/21 13:00 87 22 Nasal Cannula 3.00 08/05/21 12:46 76 08/05/21 12:00 77 24 136/58 93 Nasal Cannula 3.00 08/05/21 12:00 96 Nasal Cannula 3.00 08/05/21 11:00 79 19 150/60 94 Nasal Cannula 3.00 08/05/21 10:42 96 Nasal Cannula 3.00 08/05/21 10:00 75 15 135/81 93 Nasal Cannula 3.00 08/05/21 09:23 Nasal Cannula 3.00 08/05/21 09:00 68 17 155/59 97 NIV Bilevel 30.00 08/05/21 08:00 96 NIV Bilevel 30 08/05/21 08:00 36.5 08/05/21 08:00 62 27 133/57 96 NIV Bilevel 30.00 08/05/21 07:00 60 08/05/21 07:00 60 22 130/64 96 NIV Bilevel 30.00 08/05/21 06:51 60 30 95 30.00 08/05/21 06:00 60 11 121/59 96 NIV Bilevel 30.00 08/05/21 05:00 36.2 NIV Bilevel 30.00 08/05/21 05:00 68 26 160/75 98 NIV Bilevel 30.00 08/05/21 04:00 66 21 131/60 93 NIV Bilevel 30.00 08/05/21 04:00 92 NIV Bilevel 30 08/05/21 03:00 68 23 102/47 93 NIV Bilevel 30.00 08/05/21 02:15 67 28 94 30.00 08/05/21 02:00 68 21 151/66 97 NIV Bilevel 30.00 08/05/21 01:00 68 21 134/59 94 NIV Bilevel 30.00 08/05/21 00:50 73 08/05/21 00:00 67 23 124/55 95 NIV Bilevel 30.00 08/05/21 00:00 95 NIV Bilevel 30 08/04/21 23:42 36.2 NIV Bilevel 30.00 08/04/21 23:00 79 17 167/66 93 NIV Bilevel 30.00 08/04/21 22:00 67 19 126/54 92 NIV Bilevel 30.00 08/04/21 21:40 68 25 97 30.00 08/04/21 21:15 NIV Bilevel 30.00 08/04/21 21:00 80 29 154/64 93 High Flow N/C 3.00 08/04/21 20:00 81 16 137/57 95 High Flow N/C 3.00 08/04/21 20:00 96 High Flow N/C 3.00 08/04/21 19:00 High Flow N/C 3.00 08/04/21 19:00 68 08/04/21 19:00 70 26 143/68 94 High Flow N/C 3.00 08/04/21 18:58 36.6 08/04/21 18:49 64 27 95 30.00 08/04/21 18:30 NIV Bilevel 30.00 08/04/21 18:05 Nasal Cannula 5.00 08/04/21 18:00 78 14 158/66 95 NIV Bilevel 30.00 08/04/21 17:00 77 10 142/61 92 NIV Bilevel 30.00 08/04/21 16:00 76 8 150/65 99 NIV Bilevel 30.00 08/04/21 16:00 92 NIV Bilevel 50 08/04/21 15:45 Nasal Cannula 5.00 I & O 08/05/21 06:59 Intake Total 4265 ml Output Total 1775 ml Balance 2490 ml Height & Weight Height: 5'5.00" Weight: 380lbs. 0.0oz. [id number]; 72.85 BMI Method: General Appearance: No Apparent Distress, WD/WN, Anxious, Chronically ill, Obese HEENT: PERRL/EOMI, Normal ENT Inspection, Pharynx Normal Neck: Full Range of Motion, Normal Inspection, Non Tender, Supple, Carotid Bruit Respiratory: Chest Non Tender, Lungs Clear, Normal Breath Sounds, No Accessory Muscle Use, No Respiratory Distress, Decreased Breath Sounds Cardiovascular: Regular Rate, Rhythm, No Edema, No Gallop, No JVD, No Murmur, Normal Peripheral Pulses Capillary Refill: Less Than 3 Seconds Extremity: Normal Capillary Refill, Normal Inspection, Normal Range of Motion, Non Tender, No Calf Tenderness, No Pedal Edema Neurologic/Psychiatric: Alert, Oriented x3, No Motor/Sensory Deficits, Normal Mood/Affect Skin: Normal Color, Warm/Dry Lymphatic: No Adenopathy Results Lab Laboratory Tests 08/04/21 04:45 08/05/21 04:25 Assessment/Plan Assessment/Plan ` JOSSIE RUBI MD August 05, 2021 15:34
[2021-08-05] MEDS: lisINopril 5 MG (PRINIVIL) TABLET PO SCH (20:18)
[2021-08-05] MEDS ORDERED: TROUGH ORDER-PHARMACY XX ONE (23:00)
[2021-08-06] MEDS: RT-ALBUTEROL/IPRATROPIUM 3 ML (DUONEB) VIAL INH SCH ×5 (02:07→22:20)
[2021-08-06] MEDS: ALPRAZolam 0.5 MG (XANAX) TAB PO SCH ×5 (03:29→21:11)
[2021-08-06] MEDS: GABAPENTIN 600 MG (NEURONTIN) TAB PO SCH ×3 (05:47→21:23)
[2021-08-06] MEDS: LEVOTHYROXINE 75 MCG (LEVOTHROID) TABLET PO SCH (05:47)
[2021-08-06] MEDS: LEVOTHYROXINE 100 MCG (LEVOTHROID) TAB PO SCH (05:47)
[2021-08-06] MEDS: MULTIVIT W/MINERALS TAB (THERAGRAN M) PO SCH (05:47)
[2021-08-06 05:55] LABS: BASOPHILS % (AUTO) 0 % (0-10); EOSINOPHILS # (AUTO) 0.2 10^3/uL (0.0-0.3); EOSINOPHILS % (AUTO) 1 % (0-10); HEMATOCRIT 32 % (35-52); HEMOGLOBIN 9.6 g/dL (11.5-16.0); LYMPHOCYTES # (AUTO) 1.7 10^3/uL (1.0-4.0); LYMPHOCYTES % (AUTO) 13 % (12-44); MEAN CORPUSCULAR HEMOGLOBIN 26 pg (25-34); MEAN CORPUSCULAR HGB CONC 30 g/dL (32-36); MEAN CORPUSCULAR VOLUME 87 fL (80-99); MEAN PLATELET VOLUME 9.7 fL (9.0-12.2); MONOCYTES # (AUTO) 0.9 10^3/uL (0.0-1.0); MONOCYTES % (AUTO) 7 % (0-12); NEUTROPHILS # (AUTO) 10.6 10^3/uL (1.8-7.8); NEUTROPHILS % (AUTO) 78 % (42-75); PLATELET COUNT 319 10^3/uL (130-400); WHITE BLOOD COUNT 13.6 10^3/uL (4.3-11.0)
[2021-08-06 06:21] LABS: ALBUMIN 3.1 GM/DL (3.2-4.5); POTASSIUM 4.4 MMOL/L (3.6-5.0)
[2021-08-06 06:22] LABS: CALCIUM 8.7 MG/DL (8.5-10.1)
[2021-08-06 06:23] LABS: TOTAL PROTEIN 7.1 GM/DL (6.4-8.2)
[2021-08-06 06:25] LABS: BILIRUBIN,TOTAL 0.8 MG/DL (0.1-1.0)
[2021-08-06 06:27] LABS: CREATININE SERUM 0.94 MG/DL (0.60-1.30)
[2021-08-06 06:29] LABS: MAGNESIUM 1.8 MG/DL (1.6-2.4)
--- NOTE | 2021-08-06 06:41 | Progress Note ---
Subjective Date Seen by a Provider: August 06, 2021 Time Seen by a Provider: 10:30 Subjective/Events-last exam Patient about the same Social work working on disposition Bowels moving so will add laxatives Check meds labs Review of Systems General: Fatigue, Malaise Focused Exam Lactate Level 08/03/21 22:55: Lactic Acid Level 1.37 Objective Exam Last Set of Vital Signs Vital Signs Date Time Temp Pulse Resp B/P (MAP) Pulse Ox O2 Delivery O2 Flow Rate FiO2 08/06/21 06:18 65 28 90 30.00 08/06/21 04:00 36.5 158/73 NIV Bilevel 08/05/21 08:00 30 Capillary Refill : Less Than 3 Seconds I&O Intake and Output 08/06/21 00:00 Intake Total 2490 ml Output Total 2800 ml Balance -310 ml Intake Oral 1490 ml IV Total 1000 ml Output Urine Total 2800 ml General: Alert, Oriented X3, Cooperative, No Acute Distress Lungs: Clear to Auscultation, Normal Air Movement Psych/Mental Status: Mental Status NL, Mood NL Results Lab Laboratory Tests 08/05/21 11:26: Glucometer 231H 08/05/21 15:45: Glucometer 218H 08/05/21 20:20: Glucometer 262H 08/06/21 05:40: White Blood Count 13.6H, Red Blood Count 3.64L, Hemoglobin 9.6L, Hematocrit 32L, Mean Corpuscular Volume 87, Mean Corpuscular Hemoglobin 26, Mean Corpuscular He moglobin Concent 30L, Red Cell Distribution Width 17.2H, Platelet Count 319, Mean Platelet Volume 9.7, Immature Granulocyte % (Auto) 1, Neutrophils (%) (Auto) 78H, Lymphocytes (%) (Auto) 13, Monocytes (%) (Auto) 7, Eosinophils (%) (Auto) 1, Basophils (%) (Auto) 0, Neutrophils # (Auto) 10.6H, Lymphocytes # (Aut o) 1.7, Monocytes # (Auto) 0.9, Eosinophils # (Auto) 0.2, Basophils # (Auto) 0.0, Immature Granulocyte # (Auto) 0.1, Sodium Level 135, Potassium Level 4.4, Chloride Level 100, Carbon Dioxide Level 27, Anion Gap 8, Blood Urea Nitrogen 18, Creatinine 0.94, Estimat Glomerular Filtration Rate 67, BUN/Creatinine Ratio 19, Glucose Level 219H, Calcium Level 8.7, Corrected Calcium 9.4, Magnesium Level 1.8, Total Bilirubin 0.8, Aspartate Amino Transf (AST/SGOT) 22, Alanine Aminotransferase (ALT/SGPT) 20, Alkaline Phosphatase 95, Total Protein 7.1, Albumin 3.1L Microbiology 08/03/21 MRSA Screen - Final, Complete MRSA not isolated Assessment/Plan Assessment/Plan Assess & Plan/Chief Complaint Assessment: Sepsis UTI Super morbid obesity BMI 73 Acute on chronic respiratory failure Obesity hypoventilation syndrome CO2 retention requiring BiPAP Hypertension Hyperlipidemia Diabetes Paroxysmal atrial fibrillation Anticoagulation contraindicated due to life-threatening bleed in the past Hypothyroidism Right hip pain Plan: Supportive care IV antibiotics ICU BiPAP 08/05/21: Monitor closely Transfer to 4th floor Dr Talamantes right hip pain 08/06/2021: Social work for disposition Poor prognosis due to increased BMI 76 Diagnosis/Problems Diagnosis/Problems (1) Sepsis (2) Hypotension Status: Resolved Resolution Date/Time: 04/28/20 @ 13:41 (3) Hypothyroidism Status: Chronic (4) Renal failure (ARF), acute on chronic Status: Acute (5) Hyperlipidemia Status: Chronic (6) Atrial fibrillation Status: Chronic (7) Coronary artery disease Status: Chronic (8) Diabetes Status: Chronic (9) COPD (chronic obstructive pulmonary disease) Status: Chronic EDEL BLISS DO August 06, 2021 06:41
[2021-08-06 07:12] VITALS: BP 158/73
[2021-08-06] MEDS: inSUlin ASPART (NovoLOG) 1 UNIT/0.01 ML (CHARGE PER UNIT) SC SCH ×7 (07:40→21:13)
[2021-08-06 08:11] VITALS: BP 144/76
[2021-08-06] MEDS: amLODIPine 5 MG (NORVASC) TAB PO SCH (08:21)
[2021-08-06] MEDS: PANTOPRAZOLE 20 MG TABLET (PROTONIX) PO SCH ×2 (08:21→21:11)
[2021-08-06] MEDS: DOCUSATE SODIUM 100 MG (COLACE) CAP PO SCH ×2 (08:21→21:11)
[2021-08-06] MEDS: FOLIC ACID 1 MG TAB PO SCH (08:21)
[2021-08-06] MEDS: SENNOSIDES 8.6 MG (SENOKOT) TAB PO SCH ×2 (08:22→21:10)
[2021-08-06] MEDS: MICONAZOLE 2% POWDER (DESENEX AF) 90 GM TOP SCH ×2 (08:22→21:12)
--- NOTE | 2021-08-06 08:32 | Cardiology Progress Note ---
Subjective Date Seen by Provider: August 06, 2021 Time Seen by Provider: 08:30 Subjective/Events-last exam Patient is sitting up in bed, no new complaints. Focused Exam Lactate Level Objective-Cardiology Exam Last Set of Vital Signs Vital Signs 08/05/21 08/07/21 08/07/21 08/07/21 08:00 07:29 07:46 09:00 Temp 37.1 Pulse 74 Resp 20 B/P (MAP) 138/62 (87) Pulse Ox 95 O2 Delivery Nasal Cannula O2 Flow Rate 5.00 FiO2 30 I&O Intake and Output 08/07/21 00:00 Intake Total 2062 ml Output Total 2700 ml Balance -638 ml Intake Oral 2012 ml IV Total 50 ml Output Urine Total 2700 ml General: Alert, Oriented X3, Cooperative, No Acute Distress HEENT: Atraumatic, PERRLA Neck: Supple, No JVD Lungs: Clear to Auscultation, Normal Air Movement Heart: Normal S1, Normal S2 Abdomen: Normal Bowel Sounds Extremities: No Clubbing Neuro: Normal Speech Psych/Mental Status: Mental Status NL, Mood NL Results Lab Laboratory Tests 08/07/21 04:45 A/P-Cardiology Admission Diagnosis Urosepsis CAD PAF HTN Assessment/Plan Urosepsis, management per medical services Coronary artery disease with history of stents x2 to the RCA,3.512 mm vision stent in 2009. 3.012 mm vision stent in 2010 with most recent cardiac catheterization in November 2015 revealing patent stents to the RCA with otherwise nonobstructive disease. 2D Echo done 08/05/21 showing EF 60-65%, PA 20-25mmHg. Paroxysmal atrial fibrillation, diagnosed April 2019, was hospitalized for A. fib with RVR with tachybradycardia episodes, converted to sinus rhythm, currently in sinus rhythm. Has been intolerant to OAC secondary to GI bleed. History of GI bleed on 04/27/2020 requiring blood transfusion. EGD done during hospitalization showing gastritis.Was hospitalized at in 2020 for possible cholangitis and found to have duodenal mass, biopsy unrevealing and repeat EGD did not show mass Hypertension, was hypotension on admission, blood pressure now improved, cont inue to monitor. Hyperlipidemia, I will evaluate lipid/CMP Dyspnea on exertion, secondary to morbid obesity, COPD. Maintained on oxygen Diabetes mellitus-managed by primary care physician, continue to monitor Severe obesity, BMI 74 was referred for possible weight loss surgery in the past, however patient has decided against surgery at this time. Patient continues to gain weight. We had a long discussion about the need for weight loss. Bilateral lower extremity pain and swelling-discussed weight loss. Mild bilateral nonobstructive carotid artery stenosis, most recent carotid duplex done in November 2018, continue to monitor. Hypothyroidism, continue to monitor thyroid function test. Obstructive sleep apnea Supervisory-Addendum Brief Supervisory Addendum Participated in pt care: history, MDM, physical Personally performed: exam, history, MDM Care discussed with: JANIYA Results interpretation: Verified all documentation Notes: Patient was seen and evaluated with Dominic, examination performed, management plan was discussed, agree with the current scribed note, I made few changes to the note using Italic font Patient was seen at bedside laying down comfortably, morbidly obese Feeling better. No changes were recommended DOMINIC JANG August 06, 2021 08:31 BELLE VERA MD August 07, 2021 09:20
[2021-08-06] MEDS ORDERED: cefTRIAXone 1 GM PRE-MIX 50 ML IV SCH (09:00)
[2021-08-06] MEDS ORDERED: SENNA W/DOCUSATE (SENOKOT S) TABLET PO ONE (10:30)
[2021-08-06] MEDS ORDERED: LACTULOSE SYRUP 10GM/15ML (ENULOSE) 30ML UDC PO ONE (10:30)
--- NOTE | 2021-08-06 11:23 | Physical Therapy Daily Note ---
PT Daily Note-Current Subjective Patient agrees to PT. Mental Status Patient Orientation: Normal For Age Attachments: Oxygen, Mack Catheter Transfers SCALE: Activities may be completed with or without assistive devices. 0-Oqabrhabhs-nzmopmq completes the activity by him/herself with no assistance from a helper. 5-Set-up or Clean-up Assistance-helper sets up or cleans up; patient completes activity. [place] assists only prior to or following the activity. 4-Supervision or Touching Assistance-helper provides verbal cues and/or touching/steadying and/or contact guard assistance as patient completes activity. Assistance may be provided throughout the activity or intermittently. 3-Partial/Moderate Assistance-helper does LESS THAN HALF the effort. [place] l ifts, holds or supports trunk or limbs, but provides less than half the effort. 2-Substantial/Maximal Assistance-helper does MORE THAN HALF the effort. [place] lifts or holds trunk or limbs and provides more than half the effort. 7-Clohzxdkq-rpdmpq does ALL the effort. Patient does none of the effort to complete the activity. Or, the assistance of 2 or more helpers is required for t he patient to complete the activity. If activity was not attempted, code reason: 7-Patient Refused. 9-Not Applicable-not attempted and the patient did not perform the activity before the current illness, exacerbation or injury. 10-Not Attempted due to Environmental Limitations-(lack of equipment, weather restraints, etc.). 88-Not Attempted due to Medical Conditions or Safety Concerns. Lying to Sitting/Side of Bed(Q: 2 Weight Bearing Right Lower Extremity: Right Full Weight Bearing Left Lower Extremity: Left Full Weight Bearing Exercises Seated Therapy Exercises: Ankle pumps, Long arc quads Seated Reps: 20 (4 sets) Assessment Patient sat EOB with max assist with maintaining it independently. Patient performed bilateral LE exercises while seated. Patient requested to remain sitting EOB. RN notified. PT Residential Goals Supervisor [place] Workers Goals PT Residential Goals Time Frame: August 12, 2021 Roll Left & Right (QC): 4 Sit to Lying (QC): 3 (CGA) Lying-Sitting on Side/Bed(QC): 3 (CGA) Sit to Stand (QC): 3 (Chemo) Chair/Ldw-hf-Tuchn Xfer(QC): 3 (Chemo) Toilet Transfer (QC): 3 (Chemo) Walk 10 feet (QC): 3 PT Plan Treatment/Plan Treatment Plan: Continue Plan of Care Treatment Plan: Bed Mobility, Education, Functional Activity Ron, Functional Strength, Group Therapy, Gait, Safety, Therapeutic Exercise, Transfers Treatment Duration: August 12, 2021 Frequency: 6 times per week Estimated Hrs Per Day: .25 hour per day Patient and/or Family Agrees t: Yes Time/GCodes Time In: 1047 Time Out: 1101 Total Billed Treatment Time: 14 Total Billed Treatment 1 visit EX 14 min SIL HENRIQUEZ PT August 06, 2021 11:23
[2021-08-06 11:26] VITALS: BP 139/65
[2021-08-06] MEDS: ENOXAPARIN 60 MG/0.6 ML (LOVENOX) SYR SC SCH (12:27)
[2021-08-06] MEDS: cefTRIAXone 2,000 MG/NS 50 ML IVPB IV SCH ×2 (12:27)
--- NOTE | 2021-08-06 13:39 | Occupational Ther Daily Note ---
OT Current Status-Daily Note Subjective Pt alert, sitting in recliner. Pt agrees to therapy. No c/o pain. Mental Status/Objective Patient Orientation: Person, Place, Time, Situation Attachments: Mack Catheter, IV, Oxygen ADL-Treatment Independent with eating. Set up for oral care. Min A for upper body dressing, threads arms and head through hospital gown and requires assist to manipulate clothing in back. Pt is hyperverbal and requires cues to focus on tasks. Pt able to comb hair. After therapy, pt lying in bed with call light/phone in reach. All needs met in room. Therapy Code Descriptions/Definitions Functional [place] Measure: 0=Not Assessed/NA 4=Minimal Assistance 1=Total Assistance 5=Supervision or Setup 2=Maximal Assistance 6=Modified [place] 3=Moderate Assistance 7=Complete IndependenceSCALE: Activities may be completed with or without assistive devices. 9-Vndjfqykfh-hcnvknw completes the activity by him/herself with no assistance from a helper. 5-Set-up or Clean-up Assistance-helper sets up or cleans up; patient completes activity. [place] assists only prior to or following the activity. 4-Supervision or Touching Assistance-helper provides verbal cues and/or touching/steadying and/or contact guard assistance as patient completes activity. Assistance may be provided throughout the activity or intermittently. 3-Partial/Moderate Assistance-helper does LESS THAN HALF the effort. [place] lifts, holds or supports trunk or limbs, but provides less than half the effort. 2-Substantial/Maximal Assistance-helper does MORE THAN HALF the effort. [place] lifts or holds trunk or limbs and provides more than half the effort. 2-Ougupujld-bvdbkd does ALL the effort. Patient does none of the effort to complete the activity. Or, the assistance of 2 or more helpers is required for the patient to complete the activity. If activity was not attempted, code reason: 7-Patient Refused. 9-Not Applicable-not attempted and the patient did not perform the activity before the current illness, exacerbation or injury. 10-Not Attempted due to Environmental Limitations-(lack of equipment, weather restraints, etc.). 88-Not Attempted due to Medical Conditions or Safety Concerns. Eating (QC): 6 Oral Hygiene (QC): 5 Upper Body Dressing (QC): 3 OT Halfway Goals Halfway Goals Time Frame: August 21, 2021 Eating (QC): 6 Oral Hygiene (QC): 6 Shower/Bathe Self (QC): 2 Upper Body Dressing (QC): 5 Additional Goals: 1-Demonstrate ADL Tasks, 2-Verbalize Understanding, 3-Im proveStrength/Ron 1=Demonstrate adherence to instructed precautions during ADL tasks. 2=Patient will verbalize/demonstrate understanding of assistive devices/modifications for ADL. 3=Patient will improve strength/tolerance for activity to enable patient to perform ADL's. OT Education/Plan Problem List/Assessment Assessment: Decreased Activ Tolerance, Impaired Self-Care Skills Discharge Recommendations Plan/Recommendations: Continue POC Treatment Plan/Plan of Care Patient would benefit from OT for education, treatment and training to promote independence in ADL's, mobility, safety and/or upper extremity function for ADL's. Plan of Care: ADL Retraining, Functional Mobility, UE Funct Exercise/Act Treatment Duration: August 21, 2021 Frequency: 3 times per week (3-5 times a week) Rehab Potential: Poor Time/GCodes Start Time: 13:13 Stop Time: 13:35 Total Time Billed (hr/min): 24 Billed Treatment Time 1 visit-ADL 2 (24 min) MARIPOSA LANCASTER August 06, 2021 13:39
[2021-08-06 15:49] VITALS: BP 165/67
[2021-08-06 19:44] VITALS: BP 167/70
[2021-08-06] MEDS: LORazepam INJ 2 MG/ML (ATIVAN) VIAL IVP PRN (21:10)
[2021-08-06] MEDS: lisINopril 5 MG (PRINIVIL) TABLET PO SCH (21:10)
[2021-08-06] MEDS: MELATONIN 3 MG TABLET PO PRN (21:10)
[2021-08-06] MEDS: guaiFENesin/DM (ROBITUSSIN DM) 10 ML UDC PO PRN (21:23)
[2021-08-07] VITALS (7 sets, daily range): BP systolic 103–158; BP diastolic 58–79
[2021-08-07] MEDS: ALPRAZolam 0.5 MG (XANAX) TAB PO SCH ×7 (00:24→23:15)
[2021-08-07] MEDS: ENOXAPARIN 60 MG/0.6 ML (LOVENOX) SYR SC SCH ×3 (00:29→23:15)
[2021-08-07] MEDS: LORazepam INJ 2 MG/ML (ATIVAN) VIAL IVP PRN (02:22)
[2021-08-07] MEDS: RT-ALBUTEROL/IPRATROPIUM 3 ML (DUONEB) VIAL INH SCH ×5 (02:34→22:16)
[2021-08-07 04:57] LABS: BASOPHILS % (AUTO) 0 % (0-10); EOSINOPHILS # (AUTO) 0.2 10^3/uL (0.0-0.3); EOSINOPHILS % (AUTO) 1 % (0-10); HEMATOCRIT 31 % (35-52); HEMOGLOBIN 9.1 g/dL (11.5-16.0); LYMPHOCYTES # (AUTO) 1.3 10^3/uL (1.0-4.0); LYMPHOCYTES % (AUTO) 10 % (12-44); MEAN CORPUSCULAR HEMOGLOBIN 26 pg (25-34); MEAN CORPUSCULAR HGB CONC 30 g/dL (32-36); MEAN CORPUSCULAR VOLUME 88 fL (80-99); MEAN PLATELET VOLUME 9.7 fL (9.0-12.2); MONOCYTES # (AUTO) 0.9 10^3/uL (0.0-1.0); MONOCYTES % (AUTO) 7 % (0-12); NEUTROPHILS # (AUTO) 11.3 10^3/uL (1.8-7.8); NEUTROPHILS % (AUTO) 81 % (42-75); PLATELET COUNT 320 10^3/uL (130-400); WHITE BLOOD COUNT 13.8 10^3/uL (4.3-11.0)
[2021-08-07 05:06] LABS: POTASSIUM 5.1 MMOL/L (3.6-5.0)
[2021-08-07 05:07] LABS: CALCIUM 8.7 MG/DL (8.5-10.1)
[2021-08-07 05:08] LABS: TOTAL PROTEIN 6.8 GM/DL (6.4-8.2)
[2021-08-07 05:10] LABS: BILIRUBIN,TOTAL 0.7 MG/DL (0.1-1.0)
[2021-08-07 05:15] LABS: MAGNESIUM 1.8 MG/DL (1.6-2.4)
[2021-08-07] MEDS: LEVOTHYROXINE 75 MCG (LEVOTHROID) TABLET PO SCH (05:24)
[2021-08-07] MEDS: MULTIVIT W/MINERALS TAB (THERAGRAN M) PO SCH (05:24)
[2021-08-07] MEDS: LEVOTHYROXINE 100 MCG (LEVOTHROID) TAB PO SCH (05:24)
[2021-08-07] MEDS: GABAPENTIN 600 MG (NEURONTIN) TAB PO SCH ×3 (05:24→23:15)
[2021-08-07] MEDS: morphine INJ 4 MG/ML 1 ML (VIAL/SYRINGE) IV PRN (05:25)
--- NOTE | 2021-08-07 05:49 | Progress Note ---
Subjective Date Seen by a Provider: August 07, 2021 Time Seen by a Provider: 08:30 Subjective/Events-last exam Pt is doing about the same Super morbid obesity causes her to sleep all the time 5L of oxygen right now Very poor prognosis overall Review of Systems General: Fatigue, Malaise Pulmonary: Dyspnea Objective Exam Last Set of Vital Signs Vital Signs Date Time Temp Pulse Resp B/P (MAP) Pulse Ox O2 Delivery O2 Flow Rate FiO2 08/07/21 03:59 36.9 75 27 146/62 (90) 88 NIV Bilevel 30.00 08/05/21 08:00 30 Capillary Refill : Less Than 3 Seconds I&O Intake and Output 08/07/21 00:00 Intake Total 2062 ml Output Total 2700 ml Balance -638 ml Intake Oral 2012 ml IV Total 50 ml Output Urine Total 2700 ml General: Alert, Oriented X3, Cooperative, No Acute Distress Lungs: Clear to Auscultation, Normal Air Movement Heart: Regular Rate, Normal S1, Normal S2, No Murmurs Psych/Mental Status: Mental Status NL, Mood NL Results Lab Laboratory Tests 08/06/21 11:11: Glucometer 202H 08/06/21 15:37: Glucometer 234H 08/06/21 19:52: Glucometer 216H 08/07/21 04:45: White Blood Count 13.8H, Red Blood Count 3.52L, Hemoglobin 9.1L, Hematocrit 31L, Mean Corpuscular Volume 88, Mean Corpuscular Hemoglobin 26, Mean Corpuscular Hemoglobin Concent 30L, Red Cell Distribution Width 17.3H, Platelet Count 320, Mean Platelet Volume 9.7, Immature Granulocyte % (Auto) 1, Neutrophils (%) (Auto) 81H, Lymphocytes (%) (Auto) 10L, Monocytes (%) (Auto) 7, Eosinophils (%) (Auto) 1, Basophils (%) (Auto) 0, Neutrophils # (Auto) 11.3H, Lymphocytes # (Auto) 1.3, Monocytes # (Auto) 0.9, Eosinophils # (Auto) 0.2, Basophils # (Auto) 0.0, Immature Granulocyte # (Auto) 0.1, Sodium Level 134L, Potassium Level 5.1H, Chloride Level 99, Carbon Dioxide Level 26, Anion Gap 9, Blood Urea Nitrogen 18, Creatinine 1.00, Estimat Glomerular Filtration Rate 62, BUN/Creatinine Ratio 18, Glucose Level 265H, Calcium Level 8.7, Corrected Calcium 9.5, Magnesium Level 1.8, Total Bilirubin 0.7, Aspartate Amino Transf (AST/SGOT) 20, Alanine Aminotransferase (ALT/SGPT) 22, Alkaline Phosphatase 97, Total Protein 6.8, Albumin 3.0L Microbiology 08/03/21 MRSA Screen - Final, Complete MRSA not isolated Assessment/Plan Assessment/Plan Assess & Plan/Chief Complaint Assessment: Sepsis UTI Super morbid obesity BMI 73 Acute on chronic respiratory failure Obesity hypoventilation syndrome CO2 retention requiring BiPAP Hypertension Hyperlipidemia Diabetes Paroxysmal atrial fibrillation Anticoagulation contraindicated due to life-threatening bleed in the past Hypothyroidism Right hip pain Plan: Supportive care IV antibiotics ICU BiPAP 08/05/21: Monitor closely Transfer to 4th floor Dr Talamantes right hip pain 08/06/2021: Social work for disposition Poor prognosis due to increased BMI 76 08/07/2021: BiPAP Supportive care Poor prognosis Diagnosis/Problems Diagnosis/Problems (1) Sepsis (2) Hypotension Status: Resolved Resolution Date/Time: 04/28/20 @ 13:41 (3) Hypothyroidism Status: Chronic (4) Renal failure (ARF), acute on chronic Status: Acute (5) Hyperlipidemia Status: Chronic (6) Atrial fibrillation Status: Chronic (7) Coronary artery disease Status: Chronic (8) Diabetes Status: Chronic (9) COPD (chronic obstructive pulmonary disease) Status: Chronic EDEL BLISS DO August 07, 2021 05:49
[2021-08-07] MEDS: inSUlin ASPART (NovoLOG) 1 UNIT/0.01 ML (CHARGE PER UNIT) SC SCH ×7 (05:58→20:36)
[2021-08-07] MEDS: FOLIC ACID 1 MG TAB PO SCH (08:24)
[2021-08-07] MEDS: PANTOPRAZOLE 20 MG TABLET (PROTONIX) PO SCH ×2 (08:24→21:25)
[2021-08-07] MEDS: amLODIPine 5 MG (NORVASC) TAB PO SCH (08:24)
[2021-08-07] MEDS: SENNOSIDES 8.6 MG (SENOKOT) TAB PO SCH ×2 (08:24→21:25)
[2021-08-07] MEDS: DOCUSATE SODIUM 100 MG (COLACE) CAP PO SCH ×2 (08:24→21:25)
[2021-08-07] MEDS: MICONAZOLE 2% POWDER (DESENEX AF) 90 GM TOP SCH ×2 (08:25→21:26)
--- NOTE | 2021-08-07 09:08 | Occupational Ther Daily Note ---
OT Current Status-Daily Note Subjective Pt alert, lying in bed. Pt agrees to therapy. No c/o pain. Mental Status/Objective Patient Orientation: Person, Place, Time, Situation Attachments: Mack Catheter, IV, Oxygen ADL-Treatment Pt independent with eating. Pt able to wash face and chest while in supine. Pt able to assist with threading B UE into hospital gown though assist for O2 tubing and to tie in back. Max A x2 for supine to EOB. Independent sitting EOB. Assist to comb back of hair and place in ponytails. EOB to supine independent. Max A x2 to scoot up in bed. After therapy, pt sitting in recliner with call light/phone in reach. All needs met in room. Therapy Code Descriptions/Definitions Functional [place] Measure: 0=Not Assessed/NA 4=Minimal Assistance 1=Total Assistance 5=Supervision or Setup 2=Maximal Assistance 6=Modified [place] 3=Moderate Assistance 7=Complete IndependenceSCALE: Activities may be completed with or without assistive devices. 4-Sskatvusjt-swldsqa completes the activity by him/herself with no assistance from a helper. 5-Set-up or Clean-up Assistance-helper sets up or cleans up; patient completes activity. [place] assists only prior to or following the activity. 4-Supervision or Touching Assistance-helper provides verbal cues and/or touching/steadying and/or contact guard assistance as patient completes activity. Assistance may be provided throughout the activity or intermittently. 3-Partial/Moderate Assistance-helper does LESS THAN HALF the effort. [place] lifts, holds or supports trunk or limbs, but provides less than half the effort. 2-Substantial/Maximal Assistance-helper does MORE THAN HALF the effort. [place] lifts or holds trunk or limbs and provides more than half the effort. 1-Kvzsouugv-ljelbd does ALL the effort. Patient does none of the effort to complete the activity. Or, the assistance of 2 or more helpers is required for the patient to complete the activity. If activity was not attempted, code reason: 7-Patient Refused. 9-Not Applicable-not attempted and the patient did not perform the activity before the current illness, exacerbation or injury. 10-Not Attempted due to Environmental Limitations-(lack of equipment, weather restraints, etc.). 88-Not Attempted due to Medical Conditions or Safety Concerns. OT Natural Fabricator Goals [facility] Goals Time Frame: August 21, 2021 Eating (QC): 6 Oral Hygiene (QC): 6 Shower/Bathe Self (QC): 2 Upper Body Dressing (QC): 5 Additional Goals: 1-Demonstrate ADL Tasks, 2-Verbalize Understanding, 3- ImproveStrength/Ron 1=Demonstrate adherence to instructed precautions during ADL tasks. 2=Patient will verbalize/demonstrate understanding of assistive devices/martín fications for ADL. 3=Patient will improve strength/tolerance for activity to enable patient to perform ADL's. OT Education/Plan Problem List/Assessment Assessment: Decreased Activ Tolerance, Impaired Bed Mobility, Impaired Self- Care Skills Discharge Recommendations Plan/Recommendations: Continue POC Treatment Plan/Plan of Care Patient would benefit from OT for education, treatment and training to promote independence in ADL's, mobility, safety and/or upper extremity function for ADL's. Plan of Care: ADL Retraining, Functional Mobility, UE Funct Exercise/Act Treatment Duration: August 21, 2021 Frequency: 3 times per week (3-5 times a week) Rehab Potential: Poor Time/GCodes Start Time: 08:35 Stop Time: 08:58 Total Time Billed (hr/min): 23 Billed Treatment Time 1 visit-FA 2 (23 min) MARIPOSA LANCASTER August 07, 2021 09:08
--- NOTE | 2021-08-07 09:20 | Cardiology Progress Note ---
Subjective Date Seen by Provider: August 07, 2021 Time Seen by Provider: 09:18 Subjective/Events-last exam Patient was seen at bedside, laying down comfortably. Generalized weakness and fatigue Review of Systems General: No Chills, No Night Sweats; Fatigue, Malaise; No Appetite, No Other HEENT: No Head Aches, No Visual Changes, No Eye Pain, No Ear Pain, No Dysphasia, No Sinus Congestion, No Post Nasal Drip, No Sore Throat, No Other Pulmonary: Dyspnea; No Cough, No Pleuritic Chest Pain, No Other Cardiovascular: Edema; No: Chest Pain, Palpitations, Orthopnea, Paroxysmal Noc. Dyspnea, Lt Headedness, Other Objective-Cardiology Exam Last Set of Vital Signs Vital Signs 08/05/21 08/07/21 08/07/21 08/07/21 08:00 07:29 07:46 09:00 Temp 37.1 Pulse 74 Resp 20 B/P (MAP) 138/62 (87) Pulse Ox 95 O2 Delivery Nasal Cannula O2 Flow Rate 5.00 FiO2 30 I&O Intake and Output 08/07/21 00:00 Intake Total 2062 ml Output Total 2700 ml Balance -638 ml Intake Oral 2012 ml IV Total 50 ml Output Urine Total 2700 ml General: Alert, Oriented X3, Cooperative, No Acute Distress HEENT: Atraumatic, PERRLA Neck: Supple Lungs: Clear to Auscultation, Normal Air Movement Heart: Normal S1, Normal S2 Extremities: Other (Edema) Neuro: Normal Speech Psych/Mental Status: Mental Status NL, Mood NL Results Lab Laboratory Tests 08/07/21 04:45 A/P-Cardiology Admission Diagnosis Urosepsis CAD PAF HTN Assessment/Plan Urosepsis, management per medical services Coronary artery disease with history of stents x2 to the RCA,3.512 mm vision stent in 2009. 3.012 mm vision stent in 2010 with most recent cardiac catheterization in November 2015 revealing patent stents to the RCA with otherwise nonobstructive disease. Planning to evaluate 2D echo Paroxysmal atrial fibrillation, diagnosed April 2019, was hospitalized for A. fib with RVR with tachybradycardia episodes, converted to sinus rhythm, cu rrently in sinus rhythm History of GI bleed on 04/27/2020 requiring blood transfusion. 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 Hyperlipidemia, monitor lipids Dyspnea on exertion, secondary to morbid obesity, COPD. Diabetes mellitus-managed by primary care physician, continue to monitor Severe obesity, BMI 74 was referred for possible weight loss surgery in the past, however patient has decided against surgery at this time. Bilateral lower extremity pain and swelling-discussed weight loss. Mild bilateral nonobstructive carotid artery stenosis, most recent carotid duplex done in November 2018, continue to monitor. Hypothyroidism, continue to monitor thyroid function test. Obstructive sleep apnea BELLE VERA MD August 07, 2021 09:20
--- NOTE | 2021-08-07 09:34 | Physical Therapy Daily Note ---
PT Daily Note-Current Subjective Patient agrees to PT. Slightly lethargic. Mental Status Patient Orientation: Normal For Age Attachments: Oxygen, Mack Catheter Transfers SCALE: Activities may be completed with or without assistive devices. 8-Afxzcjsvla-xbefekp completes the activity by him/herself with no assistance from a helper. 5-Set-up or Clean-up Assistance-helper sets up or cleans up; patient completes activity. [place] assists only prior to or following the activity. 4-Supervision or Touching Assistance-helper provides verbal cues and/or touching/steadying and/or contact guard assistance as patient completes activity. Assistance may be provided throughout the activity or intermittently. 3-Partial/Moderate Assistance-helper does LESS THAN HALF the effort. [place] lifts, holds or supports trunk or limbs, but provides less than half the effort. 2-Substantial/Maximal Assistance-helper does MORE THAN HALF the effort. [place] lifts or holds trunk or limbs and provides more than half the effort. 6-Imsdktypt-atnpmc does ALL the effort. Patient does none of the effort to complete the activity. Or, the assistance of 2 or more helpers is required for the patient to complete the activity. If activity was not attempted, code reason: 7-Patient Refused. 9-Not Applicable-not attempted and the patient did not perform the activity before the current illness, exacerbation or injury. 10-Not Attempted due to Environmental Limitations-(lack of equipment, weather restraints, etc.). 88-Not Attempted due to Medical Conditions or Safety Concerns. Sit to Lying (QC): 1 (x 2) Lying to Sitting/Side of Bed(Q: 1 (x 2) Patient able to maintain EOB independently. Sat EOB for 20 min Weight Bearing Right Lower Extremity: Right Full Weight Bearing Left Lower Extremity: Left Full Weight Bearing Exercises Seated Therapy Exercises: Ankle pumps, Long arc quads Seated Reps: 15 (3 sets) Assessment Patient tolerated treatment well and remains in bed with needs met. Increase activity as tolerated by patient. PT Jail Goals Jail Goals PT Team Leader Surgery Goals Time Frame: August 12, 2021 Roll Left & Right (QC): 4 Sit to Lying (QC): 3 (CGA) Lying-Sitting on Side/Bed(QC): 3 (CGA) Sit to Stand (QC): 3 (Chemo) Chair/Skk-qt-Kgldw Xfer(QC): 3 (Chemo) Toilet Transfer (QC): 3 (Chemo) Walk 10 feet (QC): 3 PT Plan Treatment/Plan Treatment Plan: Continue Plan of Care Treatment Plan: Bed Mobility, Education, Functional Activity Ron, Functional Strength, Group Therapy, Gait, Safety, Therapeutic Exercise, Transfers Treatment Duration: August 12, 2021 Frequency: 6 times per week Estimated Hrs Per Day: .25 hour per day Patient and/or Family Agrees t: Yes Time/GCodes Time In: 835 Time Out: 858 Total Billed Treatment Time: 23 Total Billed Treatment 1 visit EX 8 min FA 15 min SIL HENRIQUEZ PT August 07, 2021 09:34
[2021-08-07] MEDS: cefTRIAXone 2,000 MG/NS 50 ML IVPB IV SCH ×2 (12:55)
[2021-08-07] MEDS: lisINopril 5 MG (PRINIVIL) TABLET PO SCH (21:25)
[2021-08-08] MEDS: RT-ALBUTEROL/IPRATROPIUM 3 ML (DUONEB) VIAL INH SCH ×6 (02:56→22:11)
[2021-08-08 04:02] VITALS: BP 157/76
[2021-08-08] MEDS: ALPRAZolam 0.5 MG (XANAX) TAB PO SCH ×6 (04:26→23:42)
[2021-08-08 05:01] LABS: BASOPHILS % (AUTO) 0 % (0-10); EOSINOPHILS # (AUTO) 0.2 10^3/uL (0.0-0.3); EOSINOPHILS % (AUTO) 2 % (0-10); HEMATOCRIT 32 % (35-52); HEMOGLOBIN 9.2 g/dL (11.5-16.0); LYMPHOCYTES # (AUTO) 1.4 10^3/uL (1.0-4.0); LYMPHOCYTES % (AUTO) 11 % (12-44); MEAN CORPUSCULAR HEMOGLOBIN 26 pg (25-34); MEAN CORPUSCULAR HGB CONC 29 g/dL (32-36); MEAN CORPUSCULAR VOLUME 88 fL (80-99); MEAN PLATELET VOLUME 9.9 fL (9.0-12.2); MONOCYTES # (AUTO) 0.8 10^3/uL (0.0-1.0); MONOCYTES % (AUTO) 6 % (0-12); NEUTROPHILS # (AUTO) 9.7 10^3/uL (1.8-7.8); NEUTROPHILS % (AUTO) 80 % (42-75); PLATELET COUNT 342 10^3/uL (130-400); WHITE BLOOD COUNT 12.1 10^3/uL (4.3-11.0)
[2021-08-08 05:20] LABS: POTASSIUM 4.9 MMOL/L (3.6-5.0)
[2021-08-08 05:23] LABS: TOTAL PROTEIN 7.1 GM/DL (6.4-8.2)
[2021-08-08 05:24] LABS: BILIRUBIN,TOTAL 0.5 MG/DL (0.1-1.0)
[2021-08-08 05:26] LABS: CREATININE SERUM 0.94 MG/DL (0.60-1.30)
[2021-08-08 05:29] LABS: MAGNESIUM 1.8 MG/DL (1.6-2.4)
[2021-08-08 05:53] LABS: ABG BASE EXCESS 3.1 MMOL/L (-2.5-2.5); ABG OXYGEN SATURATION 95 % (94-100); ABG PCO2 52 MMHG (35-45); ABG PH 7.35 (7.37-7.43); ABG PO2 67 MMHG (79-93); ABG TCO2 29.9 MMOL/L (21.0-31.0)
[2021-08-08] MEDS: GABAPENTIN 600 MG (NEURONTIN) TAB PO SCH ×3 (05:53→23:42)
[2021-08-08] MEDS: LEVOTHYROXINE 75 MCG (LEVOTHROID) TABLET PO SCH (05:53)
[2021-08-08] MEDS: MULTIVIT W/MINERALS TAB (THERAGRAN M) PO SCH (05:53)
[2021-08-08] MEDS: inSUlin ASPART (NovoLOG) 1 UNIT/0.01 ML (CHARGE PER UNIT) SC SCH ×7 (05:53→20:42)
[2021-08-08] MEDS: LEVOTHYROXINE 100 MCG (LEVOTHROID) TAB PO SCH (05:53)
[2021-08-08 05:55] LABS: ALLENS TEST POSITIVE; INSPIRED O2 45%; PATIENT TEMP 36.5; VENTILATOR NO
[2021-08-08 07:28] VITALS: BP 125/65
[2021-08-08] MEDS: PANTOPRAZOLE 20 MG TABLET (PROTONIX) PO SCH ×2 (09:07→20:41)
[2021-08-08] MEDS: amLODIPine 5 MG (NORVASC) TAB PO SCH (09:07)
[2021-08-08] MEDS: DOCUSATE SODIUM 100 MG (COLACE) CAP PO SCH ×2 (09:07→20:41)
[2021-08-08] MEDS: SENNOSIDES 8.6 MG (SENOKOT) TAB PO SCH ×2 (09:07→20:41)
[2021-08-08] MEDS: FOLIC ACID 1 MG TAB PO SCH (09:08)
[2021-08-08] MEDS: MICONAZOLE 2% POWDER (DESENEX AF) 90 GM TOP SCH ×2 (09:08→20:42)
--- NOTE | 2021-08-08 09:15 | Physical Therapy Daily Note ---
PT Daily Note-Current Subjective Patient in bed pre tx, agrees to PT, has no pain at rest but severe pain in right hip with movement and activity. Appearance Patient in bed post tx with nurse call, phone, tray. Nurse notified of patient persistent cough after tx. Mental Status Patient Orientation: Person, Place, Situation Attachments: Oxygen, Mack Catheter Transfers SCALE: Activities may be completed with or without assistive devices. 9-[id number] completes the activity by him/herself with no assistance from a helper. 5-Set-up or Clean-up Assistance-helper sets up or cleans up; patient completes activity. [place] assists only prior to or following the activity. 4-Supervision or Touching Assistance-helper provides verbal cues and/or touching/steadying and/or contact guard assistance as patient completes activity. Assistance may be provided throughout the activity or intermittently. 3-Partial/Moderate Assistance-helper does LESS THAN HALF the effort. [place] lifts, holds or supports trunk or limbs, but provides less than half the effort. 2-Substantial/Maximal Assistance-helper does MORE THAN HALF the effort. [place] lifts or holds trunk or limbs and provides more than half the effort. 4-Aocnsmket-mhmama does ALL the effort. Patient does none of the effort to complete the activity. Or, the assistance of 2 or more helpers is required for the patient to complete the activity. If activity was not attempted, code reason: 7-Patient Refused. 9-Not Applicable-not attempted and the patient did not perform the activity before the current illness, exacerbation or injury. 10-Not Attempted due to Environmental Limitations-(lack of equipment, weather restraints, etc.). 88-Not Attempted due to Medical Conditions or Safety Concerns. Roll Left & Right (QC): 1 Sit to Lying (QC): 1 Lying to Sitting/Side of Bed(Q: 1 Sit to Stand (QC): 1 Patient dependent for all mobility. She was able to sit to the side of the bed and keep her balance once she was there. She stood with assist of 2 but could only stand a few seconds before needing to sit (very slumped posture during standing), after sitting she was on the edge of the bed because she has a bariatric bed with a pretty tall height, assist of 3 needed to get her laying back down. Weight Bearing Right Lower Extremity: Right Full Weight Bearing Left Lower Extremity: Left Full Weight Bearing Exercises Seated Therapy Exercises: Ankle pumps, Long arc quads Seated Reps: 20 Treatments standing, LE strengthening, bed mobility Assessment Current Status: Regressing patient is declining in strength PT Rn Pediatric Goals Mcfp Goals PT Rn Pediatric Goals Time Frame: August 12, 2021 Roll Left & Right (QC): 4 Sit to Lying (QC): 3 (CGA) Lying-Sitting on Side/Bed(QC): 3 (CGA) Sit to Stand (QC): 3 (Chemo) Chair/Vgx-wd-Anixg Xfer(QC): 3 (Chemo) Toilet Transfer (QC): 3 (Chemo) Walk 10 feet (QC): 3 PT Plan Problem List Problem List: Activity Tolerance, Functional Strength, Safety, Balance, Gait, Transfer, Bed Mobility, ROM Treatment/Plan Treatment Plan: Continue Plan of Care Treatment Plan: Bed Mobility, Education, Functional Activity Ron, Functional Strength, Group Therapy, Gait, Safety, Therapeutic Exercise, Transfers Treatment Duration: August 12, 2021 Frequency: 6 times per week Estimated Hrs Per Day: .25 hour per day Patient and/or Family Agrees t: Yes Safety Risks/Education Patient Education: Correct Positioning, Safety Issues Teaching Recipient: Patient Teaching Methods: Demonstration, Discussion Response to Teaching: Reinforcement Needed Time/GCodes Time In: 0846 Time Out: 0904 Total Billed Treatment Time: 18 Total Billed Treatment 1 visit FA 18' CHARISMA TINAJERO PT August 08, 2021 09:14
[2021-08-08] MEDS: guaiFENesin/DM (ROBITUSSIN DM) 10 ML UDC PO PRN (09:16)
[2021-08-08 11:18] VITALS: BP 132/70
[2021-08-08] MEDS: ENOXAPARIN 60 MG/0.6 ML (LOVENOX) SYR SC SCH ×2 (11:58→23:42)
[2021-08-08] MEDS: cefTRIAXone 2,000 MG/NS 50 ML IVPB IV SCH ×2 (13:53)
--- NOTE | 2021-08-08 14:52 | Progress Note - Cardiology ---
Cardiology SOAP Progress Note Subjective: On BiPAP Only minimally responsive. Does not report cp or palp or syncope or shortness of breath or n/v Objective: I&O/Vital Signs 08/08/21 08/08/21 08/08/21 08/08/21 02:56 04:02 07:06 07:28 Temp 36.9 35.8 Pulse 63 71 69 66 Resp 25 30 27 22 B/P (MAP) 157/76 (103) 125/65 (85) Pulse Ox 93 92 95 96 O2 Delivery NIV Bilevel NIV Bilevel O2 Flow Rate 45.00 45.00 45.00 45.00 08/08/21 08/08/21 08/08/21 09:00 09:22 11:18 Temp 36.3 Pulse 73 71 Resp 25 20 B/P (MAP) 132/70 (90) Pulse Ox 93 94 93 O2 Delivery NIV Bilevel High Flow N/C O2 Flow Rate 45.00 10.00 08/08/21 00:00 Intake Total 1010 ml Output Total 725 ml Balance 285 ml Weight (Pounds): 380 Weight (Ounces): 0.0 Weight (Calculated Kilograms): [phone] Constitutional: well-developed, other (only minimally responsive; on BiPAP; orientation cannot be determined) Respiratory: No accessory muscle use; other (on BiPAP) Cardiovascular: regular rate-rhythm, S1 and S2, systolic murmur (soft JAIDEN at card base) Gastrointestional: distended; No guarding, No rebound; audible bowel sounds Extremities: No clubbing, No cyanosis, No significant edema Neurologic/Psychiatric: other (appears to be able to move all limbs) Skin: No rash; ulcerations (superficial, R side of R knee) Results/Procedures: Labs Laboratory Tests 08/07/21 15:51: Glucometer 186H 08/07/21 20:18: Glucometer 146H 08/08/21 04:49: White Blood Count 12.1H, Red Blood Count 3.58L, Hemoglobin 9.2L, Hematocrit 32L, Mean Corpuscular Volume 88, Mean Corpuscular Hemoglobin 26, Mean Corpuscular Hemoglobin Concent 29L, Red Cell Distribution Width 17.5H, Platelet Count 342, Mean Platelet Volume 9.9, Immature Granulocyte % (Auto) 1, Neutrophils (%) (Auto) 80H, Lymphocytes (%) (Auto) 11L, Monocytes (%) (Auto) 6, Eosinophils (%) (Auto) 2, Basophils (%) (Auto) 0, Neutrophils # (Auto) 9.7H, Lymphocytes # (Auto) 1.4, Monocytes # (Auto) 0.8, Eosinophils # (Auto) 0.2, Basophils # (Auto) 0.0, Immature Granulocyte # (Auto) 0.1, Sodium Level 135, Potassium Level 4.9, Chloride Level 100, Carbon Dioxide Level 25, Anion Gap 10, Blood Urea Nitrogen 25H, Creatinine 0.94, Estimat Glomerular Filtration Rate 67, BUN/Creatinine Ratio 27, Glucose Level 196H, Calcium Level 9.0, Corrected Calcium 9.8, Magnesium Level 1.8, Total Bilirubin 0.5, Aspartate Amino Transf (AST/SGOT) 27, Alanine Aminotransferase (ALT/SGPT) 25, Alkaline Phosphatase 98, Total Protein 7.1, Albumin 3.0L 08/08/21 05:45: Blood Gas Puncture Site LEFT RADIAL, Blood Gas Patient Temperature 36.5, Arterial Blood pH 7.35L, Arterial Blood Partial Pressure CO2 52H, Arterial Blood Partial Pressure O2 67L, Arterial Blood HCO3 28H, Arterial Blood Total CO2 29.9, Arterial Blood Oxygen Saturation 95, Arterial Blood Base Excess 3.1H, Juve Test POSITIVE, Blood Gas Ventilator Setting NO, Blood Gas Inspired Oxygen 45% 08/08/21 11:15: Glucometer 236H Microbiology 08/03/21 MRSA Screen - Final, Complete MRSA not isolated Laboratory Tests 08/07/21 04:45 08/08/21 04:49 A/P: Assessment: UTI with sepsis Morbid obesity (BMI 73) with ISABELA and obesity-hypoventilation syndrome Coronary artery disease - last cardiac catheterization in November 2015 revealing patent stents to the RCA with otherwise nonobstructive disease Paroxysmal atrial fibrillation History of GI bleed on 04/27/2020 requiring blood transfusion - h/o gastritis Labile hypertension Hyperlipidemia Diabetes mellitus II -managed by primary care physicia Severe obesity, BMI 74 - referred for possible weight loss surgery in the past, however patient has decided against surgery at this time. Bilateral leg swelling, likely related to venous insuff Mild bilateral nonobstructive carotid artery stenosis - most recent carotid duplex done in November 2018, monitored by Dr Radha Moya, managed by pcp Plan: * I reviewed her records in detail * Complex management due to severe obesity and multiple concomitant issues (see above) and now with UTI and sepsis * Continue current regimen * Monitor labs closely and replenish lytes as needed KULDIP MA MD FACP FACC CCDS August 08, 2021 14:51
[2021-08-08 15:52] VITALS: BP 124/60
--- NOTE | 2021-08-08 17:41 | Progress Note - Hospitalist ---
GUERITA HUNTER 08/08/21 1741: Subjective HPI/CC On Admission Date Seen by Provider: August 08, 2021 Time Seen by Provider: 10:30 CC: Urosepsis HPI: This is a 66yoWF morbidly obese female of [facility] who is known to me from prior admit 18 months ago who has a h/o super morbid obesity who presented to the [facility] after she attempted to see her PCP Dr Styles in clinic today but could not get out of the car so she proceeded to return back home and could not get herself out of her car so firefighters and law enforcement officers were required to finally get her out of the car and was brought into the [facility] and was found to have sepsis from UTI and resp failure requiring biPAP and central line was placed and pancultured and given Cefepime and Vanc and baig cath placed. ABG reviewed. Patient was transferred to [facility] for higher level of care with ICU capabilities. Patient is improved. BiPAP will be maintained as much as possible due to continued CO2 retention. IV antibiotics empirically. Reconciled all home meds Previous visit 03/2020: CC: GIB HPI: This is a 65yoWF clinic patient of [facility] who is known to me from prior admits who has a PMH of morbid obesity who was recently DC from after 04/13-04/22/20 and DC to [place] on Tuesday who presents to the ER with large amounts of bloody stools. Patient had a duodenal mass biopsy at and then restarted on OAC on 04/18/20. Patient is currently having a lot of chronic generalized pain but her SBP is 70 and cannot withstand any narcotics currently. I have reviewed meds and labs and records. [facility] notes: Today's Date: 04/22/2020 Admission Date: 04/13/2020 LOS: 9 days Assessment/Plan: 65 y.o. female with past medical history of morbid obesity, CAD status post stents '09, HTN, A. fib, IDDM, HLD, hypothyroidism, COPD on 4 L nasal cannula at baseline. She presents to [facility] as a transfer with concern for acute gallstone pancreatitis. Endoscopic evaluation/ERCP revealed biliary sludge, and ulcerated duodenal mass. Biopsies were obtained, resulted as degenerated specimen with rare atypical cells, no overt sign of malignancy. Gastroenterology had recommended a repeat EGD with more tissue sampling to better evaluate the duodenal mass. On 04/17/2019 when she went for repeat EGD, the examination of the duodenum did not show previously seen duodenal wall mass despite of multiple examinations of the second portion. Hemoglobin appeared stable and [employer]RO[employer]EL[employer] apixaban for A. fib was restarted 04/18. Interval Update 04/22/2020: > Continue to monitor off abx > Continue Eliquis, monitor Hb daily > Beginning SNF placement coordination for discharge Expect her to need follow-up EGD for this resolved duodenal mass Also need outpatient follow-up for a colonoscopy, as she has never been screened Follow-up with general surgery for cholecystectomy (requested) #Acute pancreatitis, resolved #Concern for cholangitis, resolved -1 week of waxing/waning right upper quadrant pain associated with meals Sudden worsening overnight now with pain radiating to the back, nausea/vomiting -Per outside records, lipase elevated at 1920 -CT abdomen/pelvis suspicious for gallstones -Lactic acid 11 on admission to previous emergency department -Patient reports she received 1 unit PRBC in the emergency department -Also received 1 L NS, metronidazole in the neighboring emergency department. -RUQ Abd US: Cholelithiasis and positive sonographic Alarcon's sign, suggestive of acute cholecystitis -T bili uptrending, transaminases uptrending, WBC count uptrending as of 04/14 - EUS 04/14 showed bile duct sludge and large, ulcerated submucosal mass in second portion of duodenum, measuring 31 x 27 mm. Biopsy and FNA x3 obtained. - ERCP 04/14 showed no distal filling defect suggestive of stone. Biliary sphincterotomy performed. Sludge extracted. PLAN > s/p Ceftriaxone 2 g daily, Flagyl 500 mg Q12hr for suspected cholangitis (x7 days, end 04/19) > Recommend cholecystectomy as outpatient, will coordinate at discharge - consult placed w/ General Surgery #Upper GI bleed #Acute blood loss anemia -Patient reports one episode of "dark stool" on Tuesday -S/p 1 unit PRBC at neighboring hospital -Most recent hemoglobin in the outside records = 7.9 -FOBT at outside hospital negative -EUS/ERCP findings above -likely source of bleed -Continue to hold AC for afib due to concern for active GI bleed -[employer]RO[employer] DEVELOPER apixiban contraindicated in setting of GI malignancy, may need to transition to lovenox eventually -04/16 Hb 7.2, transfused 1 unit PRBC (second unit) -04/17 repeat EGD: previously identified duodenal mass could not be located, consistent with edema and inflammation of the duodenum which has resolved PLAN > Transfusion goal 7 > EGD & colonoscopy follow up outpt > Restart [employer]RO[employer] DEVELOPER Eliquis, recheck CBC this afternoon #Diabetes -[employer]IOR ANDROID DEVELOPER's include Sitagliptin 100 mg, Glipizide 5 mg, Liraglutide -S[employer]IOR [employer]RO[employer] DEVELOPER insulin is Detemir 16 units nightly, Lispro 18 units TID AC PLAN > S[employer]IOR [employer]RO[employer] DEVELOPER meds on discharge #Insomnia - Difficulty sleeping due to stress of possible cancer diagnosis PLAN > S[employer]IOR [employer]RO[employer] DEVELOPER Trazodone on discharge #HTN -SENIOR ANDROID DEVELOPER's include lisinopril 5 mg daily, amlodipine 5 mg daily -Lisinopril held on admit pending labs, concern for possible TEMO PLAN > Continue amlodipine on discharge > Continue lisinopril 5mg daily on discharge #Morbid Obesity #HLD >S[employer]IOR ANDROID DEVELOPER is atorvastatin 40 mg nightly, continue #GERD - S[employer]IOR [employer]ROID DEVELOPER PPI > Pantoprazole 20mg BID #Hypothyroidism - TSH wnl PLAN > [employer]RO[employer] DEVELOPER levothyroxine 175 mcg QDAY, continue FEN: No IVF, diabetic diet, electrolytes reviewed, Diet NPO Prophalyxis: [employer]RO[employer] DEVELOPER Eliquis Code: Full code Disposition: Continue admission, floor, no telemetry, med [address] Umaña. JANNY BLISS DO August 03, 2021 20:46 Subjective/Events-last exam The patient was laying in bed this morning and was not in any acute distress. She denies any changes over night. She does report her last bowel movement was last Tuesday or Tuesday. She reports pain in the right hip that travels down the same leg. Review of Systems General: No Chills; Other (no fever) HEENT: No Head Aches, No Visual Changes Pulmonary: Dyspnea; No Pleuritic Chest Pain Cardiovascular: No: Chest Pain, Palpitations Gastrointestinal: Constipation; No: Nausea, Vomiting Genitourinary: No Dysuria, No Frequency, No Hematuria Musculoskeletal: No: neck pain, shoulder pain Neurological: No: Change in speech, Confusion Objective Exam Vital Signs Vital Signs Date Time Temp Pulse Resp B/P (MAP) Pulse Ox O2 Delivery O2 Flow Rate FiO2 08/08/21 15:52 36.4 67 24 124/60 (81) 94 High Flow N/C 10.00 08/05/21 08:00 30 Capillary Refill : Less Than 3 Seconds General Appearance: No Apparent Distress, Chronically ill, Obese HEENT: PERRL/EOMI, Moist Mucous Membranes Neck: Full Range of Motion, Normal Inspection Respiratory: Chest Non Tender, No Accessory Muscle Use, No Respiratory Distress, Wheezing (on right side) Cardiovascular: Regular Rate, Rhythm, No Murmur, Normal Peripheral Pulses Gastrointestinal: Normal Bowel Sounds, No Organomegaly, No Pulsatile Mass, Non Tender, Soft Extremity: Normal Range of Motion, No Calf Tenderness Neurologic/Psychiatric: Alert, Oriented x3, No Motor/Sensory Deficits Skin: Warm/Dry Results/Procedures Lab Laboratory Tests 08/08/21 04:49 Patient resulted labs reviewed. Assessment/Plan Assessment and Plan Assess & Plan/Chief Complaint Assessment: Sepsis UTI Super morbid obesity Acute on chronic respiratory failure Obesity hypoventilation syndrome CO2 retention requiring BiPAP HTN HLP DM Paroxysmal Afib w/ anticoagulation contraindication due to Hx of life threatening bleed Hypothyroidism R hip and leg pain Constipation Anemia DVT prophylaxis Plan: Sepsis UTI Continue on Ceftriaxone therapy. Monitor vitals and white count. White count trending down. Super morbid obesity Acute on chronic respiratory failure Obesity hypoventilation syndrome CO2 retention requiring BiPAP Continue high flow NC oxygen of 10L. BiPAP as needed. Weight loss recommended. Continue Duoneb therapy. HTN HLP Paroxysmal Afib w/ anticoagulation contraindication due to Hx of life threatening bleed Cardiology following, appreciate their recommendations. Continue home medications. Monitor heart rate and rhythm. Monitor patient for signs of CVA. DM Hypothyroidism Continue home medications R hip and leg pain Medical pain management as needed Constipation PRN Miralax and Ducolax. Anemia Monitor hemoglobin DVT prophylaxis Lovenox injections. JANNY BLISS DO 08/09/21 1440: Subjective HPI/CC On Admission Pt doing about the same Maintained on BiPAP Chronic right hip and knee pain She does have pain medication ordered ABG will be ordered She appears to be BIPAP dependent Overall, very poor prognosis Subjective/Events-last exam Pt doing about the same Maintained on BiPAP Chronic right hip and knee pain She does have pain medication ordered ABG will be ordered She appears to be BIPAP dependent Overall, very poor prognosis Review of Systems General: Fatigue, Malaise Pulmonary: Dyspnea Objective Exam General Appearance: WD/WN, Anxious, Chronically ill, Obese Respiratory: Decreased Breath Sounds, Wheezing (on right side) Cardiovascular: Regular Rate, Rhythm Assessment/Plan Assessment and Plan Assess & Plan/Chief Complaint Poor prognosis BiPAP Supervisory-Addendum Brief Verification & Attestation Participated in pt care: history, MDM, physical Personally performed: exam, history, MDM, supervision of care Care discussed with: Medical Student Procedures: n/a Results interpretation: Verified all documentation Verification and Attestation of Medical Student E/M Service A medical student performed and documented this service in my presence. I reviewed and verified all information documented by the medical student and made modifications to such information, when appropriate. I personally performed the physical exam and medical decision making. Janny Bliss August 09, 2021,14:39 GUERITA HUNTER August 08, 2021 17:41 JANNY BLISS DO August 09, 2021 14:40
[2021-08-08 19:25] VITALS: BP 141/65
[2021-08-08] MEDS: lisINopril 5 MG (PRINIVIL) TABLET PO SCH (20:41)
[2021-08-09 00:13] VITALS: BP 149/73
[2021-08-09] MEDS: RT-ALBUTEROL/IPRATROPIUM 3 ML (DUONEB) VIAL INH SCH ×6 (02:04→22:09)
[2021-08-09 03:43] VITALS: BP 139/71
[2021-08-09] MEDS: ALPRAZolam 0.5 MG (XANAX) TAB PO SCH ×5 (03:47→21:40)
--- NOTE | 2021-08-09 05:13 | Progress Note - Hospitalist ---
Subjective HPI/CC On Admission Date Seen by Provider: August 09, 2021 Time Seen by Provider: 05:00 CC: Urosepsis HPI: This is a 66yoWF morbidly obese female of [facility] who is known to me from prior admit 18 months ago who has a h/o super morbid obesity who presented to the [facility] after she attempted to see her PCP Dr Styles in clinic today but could not get out of the car so she proceeded to return back home and could not get herself out of her car so firefighters and law enforcement officers were required to finally get her out of the car and was brought into the [facility] ER and was found to have sepsis from UTI and resp failure requiring biPAP and central line was placed and pancultured and given Cefepime and Vanc and baig cath placed. ABG reviewed. Patient was transferred to [facility] for higher level of care with ICU capabilities. Patient is improved. BiPAP will be maintained as much as possible due to continued CO2 retention. IV antibiotics empirically. Reconciled all home meds Previous visit 03/2020: CC: GIB HPI: This is a 65yoWF clinic patient of [facility] who is known to me from prior admits who has a PMH of morbid obesity who was recently DC from after 04/13-04/22/20 and DC to [place] on Tuesday who presents to the ER with large amounts of bloody stools. Patient had a duodenal mass biopsy at and then restarted on OAC on 04/18/20. Patient is currently having a lot of chronic generalized pain but her SBP is 70 and cannot withstand any narcotics currently. I have reviewed meds and labs and records. [facility] notes: Today's Date: 04/22/2020 Admission Date: 04/13/2020 LOS: 9 days Assessment/Plan: 65 y.o. female with past medical history of morbid obesity, CAD status post stents '09, HTN, A. fib, IDDM, HLD, hypothyroidism, COPD on 4 L nasal cannula at baseline. She presents to [facility] as a transfer with concern for acute gallstone pancreatitis. Endoscopic evaluation/ERCP revealed biliary sludge, and ulcerated duodenal mass. Biopsies were obtained, resulted as degenerated specimen with rare atypical cells, no overt sign of malignancy. Gastroenterology had recommended a repeat EGD with more tissue sampling to better evaluate the duodenal mass. On 04/17/2019 when she went for repeat EGD, the examination of the duodenum did not show previously seen duodenal wall mass despite of multiple examinations of the second portion. Hemoglobin appeared stable and [employer] apixaban for A. fib was restarted 04/18. Interval Update 04/22/2020: > Continue to monitor off abx > Continue Eliquis, monitor Hb daily > Beginning SNF placement coordination for discharge Expect her to need follow-up EGD for this resolved duodenal mass Also need outpatient follow-up for a colonoscopy, as she has never been screened Follow-up with general surgery for cholecystectomy (requested) #Acute pancreatitis, resolved #Concern for cholangitis, resolved -1 week of waxing/waning right upper quadrant pain associated with meals Sudden worsening overnight now with pain radiating to the back, nausea/vomiting -Per outside records, lipase elevated at 1920 -CT abdomen/pelvis suspicious for gallstones -Lactic acid 11 on admission to previous emergency department -Patient reports she received 1 unit PRBC in the emergency department -Also received 1 L NS, metronidazole in the neighboring emergency department. -RUQ Abd US: Cholelithiasis and positive sonographic Alarcon's sign, suggestive of acute cholecystitis -T bili uptrending, transaminases uptrending, WBC count uptrending as of 04/14 - EUS 04/14 showed bile duct sludge and large, ulcerated submucosal mass in second portion of duodenum, measuring 31 x 27 mm. Biopsy and FNA x3 obtained. - ERCP 04/14 showed no distal filling defect suggestive of stone. Biliary sphincterotomy performed. Sludge extracted. PLAN > s/p Ceftriaxone 2 g daily, Flagyl 500 mg Q12hr for suspected cholangitis (x7 days, end 04/19) > Recommend cholecystectomy as outpatient, will coordinate at discharge - consult placed w/ General Surgery #Upper GI bleed #Acute blood loss anemia -Patient reports one episode of "dark stool" on Tuesday -S/p 1 unit PRBC at neighboring hospital -Most recent hemoglobin in the outside records = 7.9 -FOBT at outside hospital negative -EUS/ERCP findings above -likely source of bleed -Continue to hold AC for afib due to concern for active GI bleed -[employer] apixiban contraindicated in setting of GI malignancy, may need to transition to lovenox eventually -04/16 Hb 7.2, transfused 1 unit PRBC (second unit) -04/17 repeat EGD: previously identified duodenal mass could not be located, consistent with edema and inflammation of the duodenum which has resolved PLAN > Transfusion goal 7 > EGD & colonoscopy follow up outpt > Restart [employer] Eliquis, recheck CBC this afternoon #Diabetes -[employer]'s include Sitagliptin 100 mg, Glipizide 5 mg, Liraglutide -[employer] insulin is Detemir 16 units nightly, Lispro 18 units TID AC PLAN > [employer] meds on discharge #Insomnia - Difficulty sleeping due to stress of possible cancer diagnosis PLAN > [employer] Trazodone on discharge #HTN -[employer]'s include lisinopril 5 mg daily, amlodipine 5 mg daily -Lisinopril held on admit pending labs, concern for possible TEMO PLAN > Continue amlodipine on discharge > Continue lisinopril 5mg daily on discharge #Morbid Obesity #HLD >[employer] is atorvastatin 40 mg nightly, continue #GERD - [employer] PPI > Pantoprazole 20mg BID #Hypothyroidism - TSH wnl PLAN > [employer] levothyroxine 175 mcg QDAY, continue FEN: No IVF, diabetic diet, electrolytes reviewed, Diet NPO Prophalyxis: [employer] Eliquis Code: Full code Disposition: Continue admission, floor, no telemetry, med [address] Umaña. EDEL BLISS DO August 03, 2021 20:46 Subjective/Events-last exam Pt having difficulty tolerating BiPAP She is requiring more O2 Overall, such poor prognosis she would be Hospice candidate Awaiting labs Review of Systems General: Fatigue, Malaise Pulmonary: Dyspnea, Cough Objective Exam Vital Signs Vital Signs Date Time Temp Pulse Resp B/P (MAP) Pulse Ox O2 Delivery O2 Flow Rate FiO2 08/09/21 15:34 36.6 71 18 161/80 (107) 94 High Flow N/C 10.00 08/05/21 08:00 30 Capillary Refill : Less Than 3 Seconds General Appearance: No Apparent Distress, WD/WN, Anxious, Chronically ill, Obese Respiratory: No Accessory Muscle Use, No Respiratory Distress, Decreased Breath Sounds Cardiovascular: Regular Rate, Rhythm Neurologic/Psychiatric: Alert, Oriented x3, No Motor/Sensory Deficits, Normal Mood/Affect Results/Procedures Lab Laboratory Tests 08/09/21 05:05 Patient resulted labs reviewed. Assessment/Plan Assessment and Plan Assess & Plan/Chief Complaint Assessment: Sepsis UTI Super morbid obesity BMI 73 Acute on chronic respiratory failure Obesity hypoventilation syndrome CO2 retention requiring BiPAP Hypertension Hyperlipidemia Diabetes Paroxysmal atrial fibrillation Anticoagulation contraindicated due to life-threatening bleed in the past Hypothyroidism Right hip pain Plan: Supportive care IV antibiotics ICU BiPAP 08/05/21: Monitor closely Transfer to 4th floor Dr Talamantes right hip pain 08/06/2021: Social work for disposition Poor prognosis due to increased BMI 76 08/07/2021: BiPAP Supportive care Poor prognosis 08/09/2021: Supportive care BiPAP Diagnosis/Problems Diagnosis/Problems (1) Sepsis (2) Hypotension Status: Resolved Resolution Date/Time: 04/28/20 @ 13:41 (3) Hypothyroidism Status: Chronic (4) Renal failure (ARF), acute on chronic Status: Acute (5) Hyperlipidemia Status: Chronic (6) Atrial fibrillation Status: Chronic (7) Coronary artery disease Status: Chronic (8) Diabetes Status: Chronic (9) COPD (chronic obstructive pulmonary disease) Status: Chronic EDEL BLISS DO August 09, 2021 05:13
[2021-08-09 05:14] LABS: BASOPHILS % (AUTO) 0 % (0-10); EOSINOPHILS # (AUTO) 0.3 10^3/uL (0.0-0.3); EOSINOPHILS % (AUTO) 2 % (0-10); HEMATOCRIT 32 % (35-52); HEMOGLOBIN 9.4 g/dL (11.5-16.0); LYMPHOCYTES # (AUTO) 1.4 10^3/uL (1.0-4.0); LYMPHOCYTES % (AUTO) 12 % (12-44); MEAN CORPUSCULAR HEMOGLOBIN 26 pg (25-34); MEAN CORPUSCULAR HGB CONC 30 g/dL (32-36); MEAN CORPUSCULAR VOLUME 88 fL (80-99); MEAN PLATELET VOLUME 9.6 fL (9.0-12.2); MONOCYTES # (AUTO) 0.8 10^3/uL (0.0-1.0); MONOCYTES % (AUTO) 7 % (0-12); NEUTROPHILS # (AUTO) 9.3 10^3/uL (1.8-7.8); NEUTROPHILS % (AUTO) 79 % (42-75); PLATELET COUNT 352 10^3/uL (130-400); WHITE BLOOD COUNT 11.8 10^3/uL (4.3-11.0)
[2021-08-09 05:34] LABS: POTASSIUM 4.8 MMOL/L (3.6-5.0)
[2021-08-09 05:35] LABS: CALCIUM 9.3 MG/DL (8.5-10.1)
[2021-08-09 05:36] LABS: TOTAL PROTEIN 7.1 GM/DL (6.4-8.2)
[2021-08-09 05:38] LABS: BILIRUBIN,TOTAL 0.5 MG/DL (0.1-1.0)
[2021-08-09 05:40] LABS: CREATININE SERUM 0.85 MG/DL (0.60-1.30)
[2021-08-09 05:43] LABS: MAGNESIUM 1.8 MG/DL (1.6-2.4)
[2021-08-09] MEDS: MULTIVIT W/MINERALS TAB (THERAGRAN M) PO SCH (06:12)
[2021-08-09] MEDS: GABAPENTIN 600 MG (NEURONTIN) TAB PO SCH ×2 (06:12→16:28)
[2021-08-09] MEDS: LEVOTHYROXINE 100 MCG (LEVOTHROID) TAB PO SCH (06:12)
[2021-08-09] MEDS: LEVOTHYROXINE 75 MCG (LEVOTHROID) TABLET PO SCH (06:12)
[2021-08-09] MEDS: inSUlin ASPART (NovoLOG) 1 UNIT/0.01 ML (CHARGE PER UNIT) SC SCH ×7 (06:13→21:40)
[2021-08-09 08:15] VITALS: BP 154/69
[2021-08-09] MEDS: PANTOPRAZOLE 20 MG TABLET (PROTONIX) PO SCH ×2 (08:31→21:40)
[2021-08-09] MEDS: amLODIPine 5 MG (NORVASC) TAB PO SCH (08:31)
[2021-08-09] MEDS: DOCUSATE SODIUM 100 MG (COLACE) CAP PO SCH ×2 (08:31→21:40)
[2021-08-09] MEDS: FOLIC ACID 1 MG TAB PO SCH (08:31)
[2021-08-09] MEDS: MICONAZOLE 2% POWDER (DESENEX AF) 90 GM TOP SCH ×2 (08:32→21:41)
[2021-08-09] MEDS: SENNOSIDES 8.6 MG (SENOKOT) TAB PO SCH ×2 (08:32→21:40)
[2021-08-09 11:05] VITALS: BP 150/73
[2021-08-09] MEDS: ENOXAPARIN 60 MG/0.6 ML (LOVENOX) SYR SC SCH (11:55)
[2021-08-09] MEDS: cefTRIAXone 2,000 MG/NS 50 ML IVPB IV SCH ×2 (11:56)
[2021-08-09 15:34] VITALS: BP 161/80
--- NOTE | 2021-08-09 15:52 | Progress Note - Cardiology ---
Cardiology SOAP Progress Note Subjective: On BiPAP Only minimally responsive Does not report cp or palp or syncope or shortness of breath Objective: I&O/Vital Signs 08/09/21 08/09/21 08/09/21 08/09/21 07:54 08:15 09:00 10:59 Temp 36.5 Pulse 68 Resp 17 B/P (MAP) 154/69 (97) Pulse Ox 94 95 94 O2 Delivery Nasal Cannula High Flow N/C High Flow N/C Nasal Cannula O2 Flow Rate 10.00 12.00 10.00 10.00 08/09/21 08/09/21 11:05 14:58 Temp 36.2 Pulse 67 60 Resp 20 28 B/P (MAP) 150/73 (98) Pulse Ox 92 98 O2 Delivery High Flow N/C O2 Flow Rate 10.00 45.00 08/09/21 00:00 Intake Total 1660 ml Output Total 2150 ml Balance -490 ml Weight (Pounds): 380 Weight (Ounces): 0.0 Weight (Calculated Kilograms): [phone] Constitutional: well-developed, other (only minimally responsive; on BiPAP; orientation cannot be determined) Respiratory: No accessory muscle use; other (on BiPAP) Cardiovascular: regular rate-rhythm, S1 and S2, systolic murmur (soft JAIDEN at card base) Gastrointestional: distended; No guarding, No rebound; audible bowel sounds Extremities: No clubbing, No cyanosis, No significant edema Neurologic/Psychiatric: other (appears to be able to move all limbs) Skin: No rash; ulcerations (superficial, R side of R knee) Results/Procedures: Labs Laboratory Tests 08/09/21 05:05: White Blood Count 11.8H, Red Blood Count 3.60L, Hemoglobin 9.4L, Hematocrit 32L, Mean Corpuscular Volume 88, Mean Corpuscular Hemoglobin 26, Mean Corpuscular Hemoglobin Concent 30L, Red Cell Distribution Width 17.5H, Platelet Count 352, Mean Platelet Volume 9.6, Immature Granulocyte % (Auto) 1, Neutrophils (%) (Auto) 79H, Lymphocytes (%) (Auto) 12, Monocytes (%) (Auto) 7, Eosinophils (%) (Auto) 2, Basophils (%) (Auto) 0, Neutrophils # (Auto) 9.3H, Lymphocytes # ( Auto) 1.4, Monocytes # (Auto) 0.8, Eosinophils # (Auto) 0.3, Basophils # (Auto) 0.0, Immature Granulocyte # (Auto) 0.1, Sodium Level 138, Potassium Level 4.8, Chloride Level 100, Carbon Dioxide Level 27, Anion Gap 11, Blood Urea Nitrogen 23H, Creatinine 0.85, Estimat Glomerular Filtration Rate 75, BUN/Creatinine Ratio 27, Glucose Level 192H, Calcium Level 9.3, Corrected Calcium 10.1, Magnesium Level 1.8, Total Bilirubin 0.5, Aspartate Amino Transf (AST/SGOT) 29, Alanine Aminotransferase (ALT/SGPT) 28, Alkaline Phosphatase 101, Total Protein 7.1, Albumin 3.0L 08/09/21 05:28: Glucometer 205H 08/09/21 10:52: Glucometer 193H 08/09/21 15:42: Glucometer 152H Microbiology 08/03/21 MRSA Screen - Final, Complete MRSA not isolated Laboratory Tests 08/08/21 04:49 08/09/21 05:05 A/P: Assessment: UTI with sepsis Morbid obesity (BMI 73) with ISABELA and obesity-hypoventilation syndrome Coronary artery disease - last cardiac catheterization in November 2015 revealing patent stents to the RCA with otherwise nonobstructive disease Paroxysmal atrial fibrillation History of GI bleed on 04/27/2020 requiring blood transfusion - h/o gastritis Labile hypertension Hyperlipidemia Diabetes mellitus II -managed by primary care physicia Severe obesity, BMI 74 - referred for possible weight loss surgery in the past, however patient has decided against surgery at this time. Bilateral leg swelling, likely related to venous insuff Mild bilateral nonobstructive carotid artery stenosis - most recent carotid duplex done in November 2018, monitored by Dr Garcia Hypothyroidism, managed by pcp Plan: * Complex management due to severe obesity and multiple concomitant issues (see above) and now with UTI and sepsis * Continue current regimen * Monitor labs closely and replenish lytes as needed KULDIP MA MD FACP FAC CCDS August 09, 2021 15:52
[2021-08-09 20:00] VITALS: BP 141/71
[2021-08-09] MEDS: lisINopril 5 MG (PRINIVIL) TABLET PO SCH (21:40)
[2021-08-10] VITALS (14 sets, daily range): BP systolic 117–158; BP diastolic 48–86
[2021-08-10] MEDS: ENOXAPARIN 60 MG/0.6 ML (LOVENOX) SYR SC SCH ×2 (00:04→11:47)
[2021-08-10] MEDS: GABAPENTIN 600 MG (NEURONTIN) TAB PO SCH ×3 (00:04→17:33)
[2021-08-10] MEDS: ALPRAZolam 0.5 MG (XANAX) TAB PO SCH ×6 (00:04→21:21)
[2021-08-10] MEDS: RT-ALBUTEROL/IPRATROPIUM 3 ML (DUONEB) VIAL INH SCH ×6 (02:12→21:25)
[2021-08-10] MEDS: guaiFENesin/DM (ROBITUSSIN DM) 10 ML UDC PO PRN (04:34)
[2021-08-10 04:46] LABS: BASOPHILS % (AUTO) 0 % (0-10); EOSINOPHILS # (AUTO) 0.2 10^3/uL (0.0-0.3); EOSINOPHILS % (AUTO) 2 % (0-10); HEMATOCRIT 33 % (35-52); HEMOGLOBIN 9.6 g/dL (11.5-16.0); LYMPHOCYTES # (AUTO) 1.5 10^3/uL (1.0-4.0); LYMPHOCYTES % (AUTO) 13 % (12-44); MEAN CORPUSCULAR HEMOGLOBIN 26 pg (25-34); MEAN CORPUSCULAR HGB CONC 30 g/dL (32-36); MEAN CORPUSCULAR VOLUME 89 fL (80-99); MEAN PLATELET VOLUME 9.4 fL (9.0-12.2); MONOCYTES # (AUTO) 0.9 10^3/uL (0.0-1.0); MONOCYTES % (AUTO) 7 % (0-12); NEUTROPHILS # (AUTO) 9.5 10^3/uL (1.8-7.8); NEUTROPHILS % (AUTO) 78 % (42-75); PLATELET COUNT 388 10^3/uL (130-400); WHITE BLOOD COUNT 12.2 10^3/uL (4.3-11.0)
[2021-08-10 04:56] LABS: ALBUMIN 3.1 GM/DL (3.2-4.5); POTASSIUM 4.8 MMOL/L (3.6-5.0)
[2021-08-10 04:57] LABS: CALCIUM 9.1 MG/DL (8.5-10.1)
[2021-08-10 04:58] LABS: TOTAL PROTEIN 7.3 GM/DL (6.4-8.2)
[2021-08-10 05:00] LABS: BILIRUBIN,TOTAL 0.4 MG/DL (0.1-1.0)
[2021-08-10 05:02] LABS: CREATININE SERUM 0.93 MG/DL (0.60-1.30)
[2021-08-10 05:05] LABS: MAGNESIUM 1.8 MG/DL (1.6-2.4)
--- NOTE | 2021-08-10 05:39 | Progress Note - Hospitalist ---
Subjective HPI/CC On Admission Date Seen by Provider: August 10, 2021 Time Seen by Provider: 09:30 Pt doing about the same Maintained on BiPAP Chronic right hip and knee pain She does have pain medication ordered ABG will be ordered She appears to be BIPAP dependent Overall, very poor prognosis Subjective/Events-last exam Pt is about the same Pt remains full code per her request Singulair and Claritin will be started for allergies Remains on 12L usually on 4L at home No BM so will initiate bowel regimen Review of Systems General: Fatigue, Malaise Pulmonary: Dyspnea Gastrointestinal: Constipation Objective Exam Vital Signs Vital Signs Date Time Temp Pulse Resp B/P (MAP) Pulse Ox O2 Delivery O2 Flow Rate FiO2 08/11/21 05:00 59 20 110/51 (70) 93 NIV Bilevel 40.00 08/11/21 04:06 35.7 08/10/21 20:00 50 Capillary Refill : Less Than 3 Seconds General Appearance: Anxious, Chronically ill, Mild Distress, Obese Respiratory: No Respiratory Distress, Accessory Muscle Use, Decreased Breath Sounds Cardiovascular: Regular Rate, Rhythm Neurologic/Psychiatric: Alert, Oriented x3 Results/Procedures Lab Laboratory Tests 08/11/21 04:30 Patient resulted labs reviewed. Assessment/Plan Assessment and Plan Assess & Plan/Chief Complaint Assessment: Sepsis UTI Super morbid obesity BMI 73 Acute on chronic respiratory failure Obesity hypoventilation syndrome CO2 retention requiring BiPAP Hypertension Hyperlipidemia Diabetes Paroxysmal atrial fibrillation Anticoagulation contraindicated due to life-threatening bleed in the past Hypothyroidism Right hip pain Plan: Supportive care IV antibiotics ICU BiPAP 08/05/21: Monitor closely Transfer to 4th [address] Dr Talamantes right hip pain 08/06/2021: Social work for disposition Poor prognosis due to increased BMI 76 08/07/2021: BiPAP Supportive care Poor prognosis 08/09/2021: Supportive care BiPAP 08/10/2021: Supportive care BiPAP Diagnosis/Problems Diagnosis/Problems (1) Sepsis (2) Hypotension Status: Resolved Resolution Date/Time: 04/28/20 @ 13:41 (3) Hypothyroidism Status: Chronic (4) Renal failure (ARF), acute on chronic Status: Acute (5) Hyperlipidemia Status: Chronic (6) Atrial fibrillation Status: Chronic (7) Coronary artery disease Status: Chronic (8) Diabetes Status: Chronic (9) COPD (chronic obstructive pulmonary disease) Status: Chronic EDEL BLISS DO August 10, 2021 05:39
[2021-08-10] MEDS: LEVOTHYROXINE 75 MCG (LEVOTHROID) TABLET PO SCH (06:16)
[2021-08-10] MEDS: LEVOTHYROXINE 100 MCG (LEVOTHROID) TAB PO SCH (06:16)
[2021-08-10] MEDS: inSUlin ASPART (NovoLOG) 1 UNIT/0.01 ML (CHARGE PER UNIT) SC SCH ×7 (06:16→21:24)
[2021-08-10] MEDS: MULTIVIT W/MINERALS TAB (THERAGRAN M) PO SCH (06:16)
[2021-08-10] MEDS: SENNOSIDES 8.6 MG (SENOKOT) TAB PO SCH ×2 (08:27→21:06)
[2021-08-10] MEDS: PANTOPRAZOLE 20 MG TABLET (PROTONIX) PO SCH ×2 (08:27→21:22)
[2021-08-10] MEDS: FOLIC ACID 1 MG TAB PO SCH (08:27)
[2021-08-10] MEDS: amLODIPine 5 MG (NORVASC) TAB PO SCH (08:27)
[2021-08-10] MEDS: DOCUSATE SODIUM 100 MG (COLACE) CAP PO SCH ×2 (08:27→21:06)
[2021-08-10] MEDS: MICONAZOLE 2% POWDER (DESENEX AF) 90 GM TOP SCH ×2 (08:29→21:24)
--- NOTE | 2021-08-10 09:26 | Cardiology Progress Note ---
Subjective Date Seen by Provider: August 10, 2021 Time Seen by Provider: 08:25 Subjective/Events-last exam Patient sitting up in bed, no new complaints. Objective-Cardiology Exam Last Set of Vital Signs Vital Signs 08/09/21 08/10/21 08/10/21 20:20 07:48 10:52 Temp 36.6 Pulse 75 Resp 18 B/P (MAP) 144/73 (96) Pulse Ox 92 O2 Delivery High Flow N/C O2 Flow Rate 12.00 FiO2 40 I&O Intake and Output 08/09/21 23:59 Intake Total 2600 ml Output Total 2500 ml Balance 100 ml Intake Oral 2600 ml Output Urine Total 2500 ml General: Alert, Oriented X3, Cooperative, No Acute Distress HEENT: Atraumatic, PERRLA Neck: Supple, No JVD Lungs: Other (decreased breath sounds. ) Heart: Regular Rate, Normal S1, Normal S2, No Murmurs Abdomen: Normal Bowel Sounds Extremities: No Clubbing Neuro: Normal Speech Psych/Mental Status: Mental Status NL, Mood NL Results Lab Laboratory Tests 08/10/21 04:35 A/P-Cardiology Admission Diagnosis Urosepsis CAD PAF HTN Assessment/Plan Urosepsis, management per medical services Coronary artery disease with history of stents x2 to the RCA,3.512 mm vision stent in 2009. 3.012 mm vision stent in 2010 with most recent cardiac catheterization in November 2015 revealing patent stents to the RCA with otherwise nonobstructive disease. 2D Echo done 08/05/21 showing EF 60-65%, PA 20-25mmHg. Technically difficult study. Paroxysmal atrial fibrillation, diagnosed April 2019, was hospitalized for A. fib with RVR with tachybradycardia episodes, converted to sinus rhythm, currently in sinus rhythm History of GI bleed on 04/27/2020 requiring blood transfusion. 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 Hyperlipidemia, monitor lipids Dyspnea on exertion, secondary to morbid obesity, COPD. Diabetes mellitus-managed by primary care physician, continue to monitor Severe obesity, BMI 74 was referred for possible weight loss surgery in the past, however patient has decided against surgery at this time. Bilateral lower extremity pain and swelling-discussed weight loss. Mild bilateral nonobstructive carotid artery stenosis, most recent carotid duplex done in November 2018, continue to monitor. Hypothyroidism, continue to monitor thyroid function test. Obstructive sleep apnea Supervisory-Addendum Brief Supervisory Addendum Participated in pt care: history, MDM, physical Personally performed: exam, history, MDM Care discussed with: JANIYA Results interpretation: Verified all documentation Notes: Patient was seen and evaluated with Dominic, examination performed, management plan was discussed, agree with the current scribed note, I made few changes to the note using Italic font Patient was seen at bedside, sitting comfortably in a chair Still having significant shortness of breath Significant difficulty with mobility. Morbid obesity. Receiving treatment for UTI. Cardiac status is stable at this point DOMINIC JANG August 10, 2021 09:26 BELLE VERA MD August 10, 2021 11:07
[2021-08-10] MEDS ORDERED: LACTULOSE SYRUP 10GM/15ML (ENULOSE) 30ML UDC PO NR (09:45)
[2021-08-10] MEDS ORDERED: SENNA W/DOCUSATE (SENOKOT S) TABLET PO NR (09:45)
[2021-08-10] MEDS ORDERED: BISACODYL 10 MG SUPP (DULCOLAX) PR NR (09:45)
--- NOTE | 2021-08-10 09:45 | Physical Therapy Daily Note ---
PT Daily Note-Current Subjective Patient in bed pre tx, agrees to PT, voices no complaints of pain at rest but has severe pain in right hip with activity. Appearance Patient in recliner post tx with nurse call, phone, tray, all needs met. Sweetie sling under patient so nursing can get them back. Mental Status Patient Orientation: Person, Place, Situation Attachments: Oxygen, Mack Catheter Transfers SCALE: Activities may be completed with or without assistive devices. 3-Axdjzoikbo-gbootan completes the activity by him/herself with no assistance from a helper. 5-Set-up or Clean-up Assistance-helper sets up or cleans up; patient completes activity. Irrigon assists only prior to or following the activity. 4-Supervision or Touching Assistance-helper provides verbal cues and/or touching/steadying and/or contact guard assistance as patient completes activity. Assistance may be provided throughout the activity or intermittently. 3-Partial/Moderate Assistance-helper does LESS THAN HALF the effort. Irrigon lifts, holds or supports trunk or limbs, but provides less than half the effort. 2-Substantial/Maximal Assistance-helper does MORE THAN HALF the effort. Irrigon lifts or holds trunk or limbs and provides more than half the effort. 4-Kjufikzud-bvawct does ALL the effort. Patient does none of the effort to complete the activity. Or, the assistance of 2 or more helpers is required for the patient to complete the activity. If activity was not attempted, code reason: 7-Patient Refused. 9-Not Applicable-not attempted and the patient did not perform the activity before the current illness, exacerbation or injury. 10-Not Attempted due to Environmental Limitations-(lack of equipment, weather restraints, etc.). 88-Not Attempted due to Medical Conditions or Safety Concerns. Roll Left & Right (QC): 1 Chair/Uol-nu-Cqliq Xfer(QC): 1 Patient still has the same bariatric bed that is too high for patient to get back into. It is not safe trying to stand and then using 3-4 people to lay patient back down, it is too high of a fall risk. Sweetie was used today. We will investigate and see if we have a bariatric bed that goes lower. Weight Bearing Right Lower Extremity: Right Full Weight Bearing Left Lower Extremity: Left Full Weight Bearing Treatments rolling (patient had to roll several times to position sweetie sling), transfer Assessment Current Status: Poor Progress patient is virtually immobile due to weakness and obesity PT Quality Management Coordinator Goals Longterm Goals PT Longterm Goals Time Frame: August 12, 2021 Roll Left & Right (QC): 4 Sit to Lying (QC): 3 (CGA) Lying-Sitting on Side/Bed(QC): 3 (CGA) Sit to Stand (QC): 3 (Chemo) Chair/Uzm-hn-Klefx Xfer(QC): 3 (Chemo) Toilet Transfer (QC): 3 (Chemo) Walk 10 feet (QC): 3 PT Plan Problem List Problem List: Activity Tolerance, Functional Strength, Safety, Balance, Gait, Transfer, Bed Mobility, ROM Treatment/Plan Treatment Plan: Continue Plan of Care Treatment Plan: Bed Mobility, Education, Functional Activity Ron, Functional Strength, Group Therapy, Gait, Safety, Therapeutic Exercise, Transfers Treatment Duration: August 12, 2021 Frequency: 6 times per week Estimated Hrs Per Day: .25 hour per day Patient and/or Family Agrees t: Yes Safety Risks/Education Patient Education: Correct Positioning, Safety Issues Teaching Recipient: Patient Teaching Methods: Demonstration, Discussion Response to Teaching: Reinforcement Needed Time/GCodes Time In: 0857 Time Out: 10 Total Billed Treatment Time: 13 Total Billed Treatment 1 visit FA CHARISMA LOTT PT August 10, 2021 09:45
--- NOTE | 2021-08-10 09:47 | Occupational Ther Daily Note ---
OT Current Status-Daily Note Subjective Pt alert, lying in bed. Pt c/o hip pain, did not rate. Pt would cry out with pain during movement. Mental Status/Objective Patient Orientation: Person, Place, Time, Situation Attachments: Mack Catheter, IV, Oxygen (12L) ADL-Treatment Therapy Code Descriptions/Definitions Functional Amelia Measure: 0=Not Assessed/NA 4=Minimal Assistance 1=Total Assistance 5=Supervision or Setup 2=Maximal Assistance 6=Modified Amelia 3=Moderate Assistance 7=Complete IndependenceSCALE: Activities may be completed with or without assistive devices. 8-Bktfctvwio-qimipxb completes the activity by him/herself with no assistance from a helper. 5-Set-up or Clean-up Assistance-helper sets up or cleans up; patient completes activity. [place] assists only prior to or following the activity. 4-Supervision or Touching Assistance-helper provides verbal cues and/or touching/steadying and/or contact guard assistance as patient completes activity. Assistance may be provided throughout the activity or intermittently. 3-Partial/Moderate Assistance-helper does LESS THAN HALF the effort. [place] lifts, holds or supports trunk or limbs, but provides less than half the effort. 2-Substantial/Maximal Assistance-helper does MORE THAN HALF the effort. [place] lifts or holds trunk or limbs and provides more than half the effort. 8-Ncvtialar-acmqfr does ALL the effort. Patient does none of the effort to complete the activity. Or, the assistance of 2 or more helpers is required for the patient to complete the activity. If activity was not attempted, code reason: 7-Patient Refused. 9-Not Applicable-not attempted and the patient did not perform the activity before the current illness, exacerbation or injury. 10-Not Attempted due to Environmental Limitations-(lack of equipment, weather restraints, etc.). 88-Not Attempted due to Medical Conditions or Safety Concerns. Other Treatment Pt required assist x2 for rolling side to side in bed to adjust pad and ibeth lift sheet. Pt was hoyered from bed to recliner. Pt made comfortable in recliner. After therapy, pt reclined in chair with call light/phone in reach. All needs met in room. OT Finishing Range Supervisor Goals [facility] Goals Time Frame: August 21, 2021 Eating (QC): 6 Oral Hygiene (QC): 6 Shower/Bathe Self (QC): 2 Upper Body Dressing (QC): 5 Additional Goals: 1-Demonstrate ADL Tasks, 2-Verbalize Understanding, 3- ImproveStrength/Ron 1=Demonstrate adherence to instructed precautions during ADL tasks. 2=Patient will verbalize/demonstrate understanding of assistive devices/modifications for ADL. 3=Patient will improve strength/tolerance for activity to enable patient to perform ADL's. OT Education/Plan Problem List/Assessment Assessment: Decreased Activ Tolerance, Decreased UE Strength, Dependent Transfers, Impaired Bed Mobility, Impaired Self-Care Skills Discharge Recommendations Plan/Recommendations: Continue POC Treatment Plan/Plan of Care Patient would benefit from OT for education, treatment and training to promote independence in ADL's, mobility, safety and/or upper extremity function for ADL's. Plan of Care: ADL Retraining, Functional Mobility, UE Funct Exercise/Act Treatment Duration: August 21, 2021 Frequency: 3 times per week (3-5 times a week) Rehab Potential: Poor Time/GCodes Start Time: 08:57 Stop Time: 09:10 Total Time Billed (hr/min): 13 Billed Treatment Time 1 visit-FA 1 (13 min) MARIPOSA LANCASTER August 10, 2021 09:47
[2021-08-10] MEDS: LORazepam INJ 2 MG/ML (ATIVAN) VIAL IVP PRN (11:46)
[2021-08-10] MEDS: cefTRIAXone 2,000 MG/NS 50 ML IVPB IV SCH ×2 (13:58)
[2021-08-10 19:04] LABS: ABG BASE EXCESS 5.5 MMOL/L (-2.5-2.5); ABG OXYGEN SATURATION 96 % (94-100); ABG PCO2 58 MMHG (35-45); ABG PH 7.35 (7.37-7.43); ABG PO2 86 MMHG (79-93); ABG TCO2 32.7 MMOL/L (21.0-31.0); ALLENS TEST YES-POS; INSPIRED O2 40%; PATIENT TEMP 36.9; VENTILATOR NO
--- NOTE | 2021-08-10 21:15 | Tele-ICU Progress Note ---
Progress Note 66 year old female who initially admitted to ICU on 08/05 as direct admission for urosepsis, transferred out of ICU on HD 3 developed worsening dyspnea, increased work of breathing, and hypoxia while on floor. Started on bipap and transferred to ICU for closer monitoring. Unable to get much history from patient as she is currently on bipap and asleep. Easily arousable and denies any dyspnea while on bipap. States she is comfortable. Unable to get more history given her current status. Discussed with RN at bedside. Vitals - 96% o2 sat on 50% fio2, bp 130s/60s, hr 60s, RR ~ 20 on EMR Appears comfortable in no distress on bipap Follows commands Asleep but easily arousable CXR ordered - is pending Acute hypoxic and hypercapnic respiratory failure - ABG reviewed - PaO2 is 86 on 40% fio2. Some mild respiratory acidosis noted off bipap. Has ISABELA and suspect OHS so likely with some component of hypoventilation.. Attempt to wean off bipap as tolerated and on to NC as tolerated. CXR ordered. Sepsis - secondary to urinary tract infection - reason for admission - currently on ceftriaxone Urinary tract infection - on admission - no cultures/UA done at the time. Will defer to primary service as already has been on abx. Atrial fibrillation - with RVR on admission - now back in sinus. Cardiology following Focused Exam Height, Weight, BMI Height: 5'5.00" Weight: 380lbs. 0.0oz. [id number]; 71.42 BMI Method: BENJIE MAGANA MD August 10, 2021 21:15
[2021-08-10] MEDS: lisINopril 5 MG (PRINIVIL) TABLET PO SCH (21:24)
--- NOTE | 2021-08-10 22:22 | Diagnostic Imaging Report ---
EXAMINATION: Chest 1 view HISTORY: Shortness of breath. Respiratory distress. COMPARISON: 08/05/2021. FINDINGS: Stable right internal jugular central line. There is continued cardiomegaly with central pulmonary vascular congestion and pulmonary edema. No large pleural effusion or pneumothorax. IMPRESSION: 1. Stable appearance of the chest with continued cardiomegaly and pulmonary edema. Dictated by: Dictated on workstation # [id number]
[2021-08-10] MEDS ORDERED: FUROSEMIDE 40 MG/4 ML INJ (LASIX) IVP ONE (23:45)
[2021-08-11] VITALS (32 sets, daily range): BP systolic 22–154; BP diastolic 41–74
[2021-08-11] MEDS: ALPRAZolam 0.5 MG (XANAX) TAB PO SCH ×7 (00:09→23:30)
[2021-08-11] MEDS: GABAPENTIN 600 MG (NEURONTIN) TAB PO SCH ×4 (00:09→23:30)
[2021-08-11] MEDS: ENOXAPARIN 60 MG/0.6 ML (LOVENOX) SYR SC SCH ×3 (00:16→23:30)
[2021-08-11] MEDS: RT-ALBUTEROL/IPRATROPIUM 3 ML (DUONEB) VIAL INH SCH ×6 (02:28→21:36)
[2021-08-11 04:31] LABS: BASOPHILS % (AUTO) 0 % (0-10); EOSINOPHILS # (AUTO) 0.2 10^3/uL (0.0-0.3); EOSINOPHILS % (AUTO) 2 % (0-10); HEMATOCRIT 33 % (35-52); HEMOGLOBIN 9.5 g/dL (11.5-16.0); LYMPHOCYTES # (AUTO) 1.5 10^3/uL (1.0-4.0); LYMPHOCYTES % (AUTO) 14 % (12-44); MEAN CORPUSCULAR HEMOGLOBIN 26 pg (25-34); MEAN CORPUSCULAR HGB CONC 29 g/dL (32-36); MEAN CORPUSCULAR VOLUME 89 fL (80-99); MEAN PLATELET VOLUME 9.5 fL (9.0-12.2); MONOCYTES # (AUTO) 0.8 10^3/uL (0.0-1.0); MONOCYTES % (AUTO) 7 % (0-12); NEUTROPHILS # (AUTO) 8.3 10^3/uL (1.8-7.8); NEUTROPHILS % (AUTO) 76 % (42-75); PLATELET COUNT 389 10^3/uL (130-400); WHITE BLOOD COUNT 10.9 10^3/uL (4.3-11.0)
[2021-08-11 04:50] LABS: BILIRUBIN,TOTAL 0.5 MG/DL (0.1-1.0); CALCIUM 8.6 MG/DL (8.5-10.1); CREATININE SERUM 0.81 MG/DL (0.60-1.30); MAGNESIUM 1.7 MG/DL (1.6-2.4); POTASSIUM 4.7 MMOL/L (3.6-5.0); TOTAL PROTEIN 7.1 GM/DL (6.4-8.2)
--- NOTE | 2021-08-11 05:57 | Progress Note - Hospitalist ---
Subjective HPI/CC On Admission Date Seen by Provider: August 11, 2021 Time Seen by Provider: 09:00 Pt doing about the same Maintained on BiPAP Chronic right hip and knee pain She does have pain medication ordered ABG will be ordered She appears to be BIPAP dependent Overall, very poor prognosis Subjective/Events-last exam Pt remains in the ICU, transferred there due to impending respiratory failure [place] is awaiting approval Maintain on BiPAP and vapotherm Her bowels did move yesterday Overall prognosis very poor Review of Systems General: Fatigue Pulmonary: Dyspnea Objective Exam Vital Signs Vital Signs Date Time Temp Pulse Resp B/P (MAP) Pulse Ox O2 Delivery O2 Flow Rate FiO2 08/12/21 05:00 64 34 116/50 (72) 91 NIV Bilevel 40.00 08/11/21 22:35 37.3 08/11/21 20:00 60 Capillary Refill : Less Than 3 Seconds General Appearance: WD/WN, Anxious, Chronically ill, Mild Distress, Obese Respiratory: No Accessory Muscle Use, No Respiratory Distress, Decreased Breath Sounds Cardiovascular: Regular Rate, Rhythm Neurologic/Psychiatric: Alert, Oriented x3 Results/Procedures Lab Laboratory Tests 08/12/21 03:40 Patient resulted labs reviewed. Assessment/Plan Assessment and Plan Assess & Plan/Chief Complaint Assessment: Sepsis UTI Super morbid obesity BMI 73 Acute on chronic respiratory failure Obesity hypoventilation syndrome CO2 retention requiring BiPAP Hypertension Hyperlipidemia Diabetes Paroxysmal atrial fibrillation Anticoagulation contraindicated due to life-threatening bleed in the past Hypothyroidism Right hip pain Plan: Supportive care IV antibiotics ICU BiPAP 08/05/21: Monitor closely Transfer to 4th [address] Dr Talamantes right hip pain 08/06/2021: Social work for disposition Poor prognosis due to increased BMI 76 08/07/2021: BiPAP Supportive care Poor prognosis 08/09/2021: Supportive care BiPAP 08/10/2021: Supportive care BiPAP 08/11/2021: Supportive care ICU [place]? Diagnosis/Problems Diagnosis/Problems (1) Sepsis (2) Hypotension Status: Resolved Resolution Date/Time: 04/28/20 @ 13:41 (3) Hypothyroidism Status: Chronic (4) Renal failure (ARF), acute on chronic Status: Acute (5) Hyperlipidemia Status: Chronic (6) Atrial fibrillation Status: Chronic (7) Coronary artery disease Status: Chronic (8) Diabetes Status: Chronic (9) COPD (chronic obstructive pulmonary disease) Status: Chronic EDEL BLISS DO August 11, 2021 05:57
[2021-08-11] MEDS ORDERED: FUROSEMIDE 40 MG/4 ML INJ (LASIX) IVP ONE (06:30)
[2021-08-11] MEDS: POTASSIUM CL 10MEQ/50ML IVPB 50 ML IV SCH (06:43)
[2021-08-11] MEDS: MAGNESIUM 1 GM/100 ML IVPB 100 ML IV SCH (06:44)
[2021-08-11] MEDS: KCL 20 MEQ TAB (K-DUR) PO SCH (06:44)
[2021-08-11] MEDS: inSUlin ASPART (NovoLOG) 1 UNIT/0.01 ML (CHARGE PER UNIT) SC SCH ×7 (06:44→21:19)
--- NOTE | 2021-08-11 06:45 | Occ Therapy Progress Note ---
Therapy Progress Note Due to decline in medical status, pt dismissed from OT services at this time. When pt is medically stable and able to actively participate in skilled therapy new orders will be needed. MARIPOSA LANCASTER August 11, 2021 06:45
[2021-08-11] MEDS ORDERED: MAGNESIUM 2 GM/50 ML IVPB 50 ML IV ONE (07:00)
--- NOTE | 2021-08-11 07:54 | Physical Therapy Progress Note ---
Therapy Progress Note Patient was transferred to ICU due to medical complications. Will need new orders for PT when appropriate. CHARISMA TINAJERO PT August 11, 2021 07:54
[2021-08-11] MEDS: LEVOTHYROXINE 100 MCG (LEVOTHROID) TAB PO SCH (08:22)
[2021-08-11] MEDS: amLODIPine 5 MG (NORVASC) TAB PO SCH (08:22)
[2021-08-11] MEDS: FOLIC ACID 1 MG TAB PO SCH (08:22)
[2021-08-11] MEDS: LEVOTHYROXINE 75 MCG (LEVOTHROID) TABLET PO SCH (08:22)
[2021-08-11] MEDS: DOCUSATE SODIUM 100 MG (COLACE) CAP PO SCH ×2 (08:22→20:19)
[2021-08-11] MEDS: PANTOPRAZOLE 20 MG TABLET (PROTONIX) PO SCH ×2 (08:22→20:19)
[2021-08-11] MEDS: MULTIVIT W/MINERALS TAB (THERAGRAN M) PO SCH (08:22)
[2021-08-11] MEDS: SENNOSIDES 8.6 MG (SENOKOT) TAB PO SCH ×2 (08:22→20:19)
--- NOTE | 2021-08-11 08:24 | Cardiology Progress Note ---
Subjective Date Seen by Provider: August 11, 2021 Time Seen by Provider: 08:23 Subjective/Events-last exam Patient was seen at bedside, maintained on BiPAP. Deteriorated yesterday and transferred to ICU Review of Systems General: No Chills, No Night Sweats; Fatigue, Malaise; No Appetite, No Other HEENT: No Head Aches, No Visual Changes, No Eye Pain, No Ear Pain, No Dys phasia, No Sinus Congestion, No Post Nasal Drip, No Sore Throat, No Other Pulmonary: Dyspnea; No Cough, No Pleuritic Chest Pain, No Other Cardiovascular: No: Chest Pain, Palpitations, Orthopnea, Paroxysmal Noc. Dyspnea, Edema, Lt Headedness, Other Objective-Cardiology Exam Last Set of Vital Signs Vital Signs 08/10/21 08/11/21 20:00 08:00 Temp 36.1 Pulse 67 Resp 15 B/P (MAP) 126/58 (80) Pulse Ox 91 O2 Delivery NIV Bilevel O2 Flow Rate 40.00 FiO2 50 I&O Intake and Output 08/11/21 00:00 Intake Total 1460 ml Output Total 2550 ml Balance -1090 ml Intake Oral 1460 ml Output Urine Total 2550 ml # Bowel Movements 2 General: Alert, Cooperative, Moderate Distress HEENT: Atraumatic, PERRLA Neck: Supple, No JVD Lungs: Other (decreased breath sounds. ) Heart: Regular Rate, Normal S1, Normal S2, No Murmurs Abdomen: Normal Bowel Sounds Extremities: No Clubbing Neuro: Normal Speech Psych/Mental Status: Mental Status NL, Mood NL Results Lab Laboratory Tests 08/11/21 04:30 A/P-Cardiology Admission Diagnosis Urosepsis CAD PAF HTN Assessment/Plan Acute respiratory failure, history of chronic respiratory insufficiency due to chronic CO2 retention and morbid obesity Currently on BiPAP, improving slowly I gave her Lasix 80 mg and will evaluate tolerance and response Try to wean off the BiPAP as soon as possible. Urosepsis, management per medical services Coronary artery disease with history of stents x2 to the RCA,3.512 mm vision stent in 2009. 3.012 mm vision stent in 2010 with most recent cardiac catheterization in November 2015 revealing patent stents to the RCA with otherwise nonobstructive disease. 2D Echo done 08/05/21 showing EF 60-65%, PA 20-25mmHg. Technically difficult study. Paroxysmal atrial fibrillation, diagnosed April 2019, was hospitalized for A. fib with RVR with tachybradycardia episodes, converted to sinus rhythm, currently in sinus rhythm History of GI bleed on 04/27/2020 requiring blood transfusion. 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 Hyperlipidemia, monitor lipids Diabetes mellitus-managed by primary care physician, continue to monitor Severe obesity, BMI 74 was referred for possible weight loss surgery in the past, however patient has decided against surgery at this time. Bilateral lower extremity pain and swelling-discussed weight loss. Mild bilateral nonobstructive carotid artery stenosis, most recent carotid duplex done in November 2018, continue to monitor. Hypothyroidism, continue to monitor thyroid function test. Obstructive sleep apnea BELLE VERA MD August 11, 2021 08:24
[2021-08-11] MEDS: MICONAZOLE 2% POWDER (DESENEX AF) 90 GM TOP SCH ×2 (09:08→20:19)
--- NOTE | 2021-08-11 10:09 | Tele-ICU Progress Note ---
Subjective Date Seen by a Provider: August 11, 2021 Time Seen by a Provider: 10:08 Subjective/Events-last exam Tele-ICU Physician , Progress Note ) Available chart/ vitals / labs / Images reviewed Video assessment done using teleICU camera, rest of exam as per RN Discussed with RN , EXAM PER RN Events overnight : Afebrile FiO2 - VT I/O = neg Drips: Pressors: , hemodynamically stable Consultants: cassie Hospital course: Pt is a 66 y/o female, direct admit from an outside hospital. Pt found to have Sepsis-UTI and resp failure, requiring Bipap therpy. Pt transafered for highte level of care with ICU capabilities. 08/04 - 20/8 50% , 500 rr 26 08/05 BIPAP 20/8 30 %rr 30 tv 400 (08/10) READMIT from floor for acute resp failure - BIPAP + lasix A/P Acute resp failure 08/04 NIPPV / 50% , 500 rr 26- wenaed off --> trnsfered to med floor on high flow 02 10 L and nocturnal Bipap 40 % 08/10 - acute resp failure - BIPAP + lasix --> VT 45 % 70% - will cont diuresis and contNIPPV at night UTI - cx ? - cefepime 08/05 d 6 today CAD, s/p stenting - cont to monitor - ECHO 2019 - EF 55% - RVSP 40, , PA 20-25mmHg H/o Afib- in sinus now - iftikhar 60 q12 ( proph -not on AC ( contraindicated with previous bleed as per chart DM II - ISS Anemia - stable ISABELA/ [facility] - will need to cont on nocturnal bgiap ( has CPAP at home and 3 L o2 Anxiety - Xanax and prn ativan Lines : R IJ 08/03 (Central Line Necessity Reviewed) Mack: + OG: Nutrition: po Analgesia: Anxiety/ delirium Xanax and prn ativan VTE Prophylaxis: - iftikhar 60 q12 Stress Ulcer Prophylaxis: PO Plans in collaboration with bedside consultants and IM MDs. Discussed with RN to reach out if any questions or concerns A total of 33 minutes of critical care time was devoted to this patient today, required to treat and/or prevent further deterioration of critical care condition ( as above ) . Sepsis Event Evaluation Height, Weight, BMI Height: 5'5.00" Weight: 380lbs. 0.0oz. [id number]; 71.42 BMI Method: Exam Exam Patient acknowledged, consented, and participated in this virtual visit which was conducted using real time audio/video Vital Signs Date Time Temp Pulse Resp B/P (MAP) Pulse Ox O2 Delivery O2 Flow Rate FiO2 08/11/21 09:00 73 15 134/72 (92) 94 Vapotherm 70.00 40.00 08/11/21 08:00 96 NIV Bilevel 40 08/11/21 08:00 67 15 126/58 (80) 91 NIV Bilevel 40.00 08/11/21 08:00 36.1 08/11/21 07:06 64 30 94 40.00 08/11/21 07:00 65 08/11/21 07:00 60 25 130/56 (80) 94 NIV Bilevel 40.00 08/11/21 06:00 60 23 128/52 (77) 95 NIV Bilevel 40.00 08/11/21 05:00 59 20 110/51 (70) 93 NIV Bilevel 40.00 08/11/21 04:06 35.7 08/11/21 04:00 67 26 128/54 (78) 95 NIV Bilevel 40.00 08/11/21 03:44 86 High Flow N/C 15.00 08/11/21 03:44 66 25 93 40.00 08/11/21 03:28 90 High Flow N/C 15.00 08/11/21 03:00 66 18 120/49 (72) 94 NIV Bilevel 40.00 08/11/21 02:28 62 27 93 40.00 08/11/21 02:00 57 25 134/64 (87) 93 NIV Bilevel 40.00 08/11/21 01:00 60 22 126/59 (81) 92 NIV Bilevel 40.00 08/11/21 00:55 60 08/11/21 00:00 60 23 124/53 (76) 90 NIV Bilevel 40.00 08/10/21 23:53 36.0 08/10/21 23:00 61 22 117/48 (71) 92 NIV Bilevel 40.00 08/10/21 22:00 67 22 128/57 (80) 93 NIV Bilevel 40.00 08/10/21 21:34 NIV Bilevel 40.00 08/10/21 21:29 40.00 08/10/21 21:25 64 27 96 50.00 08/10/21 21:00 64 22 137/58 (84) 97 NIV Bilevel 50.00 08/10/21 20:00 96 NIV Bilevel 12.00 50 08/10/21 20:00 64 22 146/67 (93) 96 NIV Bilevel 50.00 08/10/21 19:00 67 08/10/21 19:00 65 23 132/63 (86) 94 NIV Bilevel 50.00 08/10/21 18:58 68 27 96 50.00 08/10/21 18:33 65 22 142/86 (104) 96 NIV Bilevel 50.00 08/10/21 18:33 67 08/10/21 17:45 94 40.00 08/10/21 15:34 36.6 92 18 138/75 (96) 91 High Flow N/C 12.00 08/10/21 14:57 89 High Flow N/C 12.00 08/10/21 13:04 36.5 65 90 08/10/21 11:22 36.5 73 18 140/67 (91) 91 High Flow N/C 12.00 08/10/21 10:52 92 High Flow N/C 12.00 I & O 08/11/21 07:00 Intake Total 1740 ml Output Total 3050 ml Balance -1310 ml Height & Weight Height: 5'5.00" Weight: 380lbs. 0.0oz. 172.633193oy; 71.42 BMI Method: General Appearance: Anxious, Chronically ill, Mild Distress, Obese HEENT: PERRL/EOMI, Moist Mucous Membranes Neck: Full Range of Motion, Normal Inspection Respiratory: No Respiratory Distress, Accessory Muscle Use, Decreased Breath Sounds Cardiovascular: Regular Rate, Rhythm Capillary Refill: Less Than 3 Seconds Extremity: Normal Range of Motion, No Calf Tenderness Neurologic/Psychiatric: Alert, Oriented x3 Skin: Warm/Dry Lymphatic: No Adenopathy Results Lab Laboratory Tests 08/10/21 04:35 08/11/21 04:30 Assessment/Plan Assessment/Plan ` JOSSIE RUBI MD August 11, 2021 10:09
[2021-08-11] MEDS: cefTRIAXone 2,000 MG/NS 50 ML IVPB IV SCH ×2 (12:17)
[2021-08-11] MEDS: morphine INJ 4 MG/ML 1 ML (VIAL/SYRINGE) IV PRN (15:17)
[2021-08-11] MEDS: lisINopril 5 MG (PRINIVIL) TABLET PO SCH (20:19)
[2021-08-12] VITALS (28 sets, daily range): BP systolic 100–152; BP diastolic 42–80
[2021-08-12] MEDS: RT-ALBUTEROL/IPRATROPIUM 3 ML (DUONEB) VIAL INH SCH ×6 (02:37→22:39)
[2021-08-12 04:17] LABS: BASOPHILS % (AUTO) 0 % (0-10); EOSINOPHILS % (AUTO) 2 % (0-10); HEMATOCRIT 31 % (35-52); HEMOGLOBIN 9.2 g/dL (11.5-16.0); LYMPHOCYTES % (AUTO) 13 % (12-44); MEAN CORPUSCULAR HEMOGLOBIN 26 pg (25-34); MEAN CORPUSCULAR HGB CONC 30 g/dL (32-36); MEAN CORPUSCULAR VOLUME 88 fL (80-99); MEAN PLATELET VOLUME 9.7 fL (9.0-12.2); MONOCYTES % (AUTO) 7 % (0-12); NEUTROPHILS % (AUTO) 77 % (42-75); PLATELET COUNT 400 10^3/uL (130-400); WHITE BLOOD COUNT 12.9 10^3/uL (4.3-11.0)
[2021-08-12 04:18] LABS: EOSINOPHILS # (AUTO) 0.2 10^3/uL (0.0-0.3); LYMPHOCYTES # (AUTO) 1.7 X 10^3 (1.0-4.0); MONOCYTES # (AUTO) 0.9 X 10^3 (0.0-1.0)
[2021-08-12 04:19] LABS: CREATININE SERUM 0.77 MG/DL (0.60-1.30); POTASSIUM 4.4 MMOL/L (3.6-5.0)
[2021-08-12 04:20] LABS: ALBUMIN 2.9 GM/DL (3.2-4.5); BILIRUBIN,TOTAL 0.5 MG/DL (0.1-1.0); CALCIUM 8.8 MG/DL (8.5-10.1); MAGNESIUM 1.7 MG/DL (1.6-2.4); TOTAL PROTEIN 6.8 GM/DL (6.4-8.2)
[2021-08-12] MEDS: ALPRAZolam 0.5 MG (XANAX) TAB PO SCH ×5 (04:51→20:00)
[2021-08-12] MEDS: MAGNESIUM 1 GM/100 ML IVPB 100 ML IV SCH ×3 (05:21→06:39)
[2021-08-12] MEDS: POTASSIUM CL 10MEQ/50ML IVPB 50 ML IV SCH (05:21)
[2021-08-12] MEDS: KCL 20 MEQ TAB (K-DUR) PO SCH (05:21)
[2021-08-12] MEDS: inSUlin ASPART (NovoLOG) 1 UNIT/0.01 ML (CHARGE PER UNIT) SC SCH ×7 (05:37→20:00)
[2021-08-12] MEDS: LEVOTHYROXINE 75 MCG (LEVOTHROID) TABLET PO SCH (05:38)
[2021-08-12] MEDS: GABAPENTIN 600 MG (NEURONTIN) TAB PO SCH ×2 (05:38→17:12)
[2021-08-12] MEDS: LEVOTHYROXINE 100 MCG (LEVOTHROID) TAB PO SCH (05:38)
[2021-08-12] MEDS: MULTIVIT W/MINERALS TAB (THERAGRAN M) PO SCH (05:38)
--- NOTE | 2021-08-12 06:39 | Progress Note - Hospitalist ---
Subjective HPI/CC On Admission Date Seen by Provider: August 12, 2021 Time Seen by Provider: 10:30 Pt doing about the same Maintained on BiPAP Chronic right hip and knee pain She does have pain medication ordered ABG will be ordered She appears to be BIPAP dependent Overall, very poor prognosis Subjective/Events-last exam Pt requiring BiPAP at night and vapotherm during the day Cough will be managed with cough suppressant Overall poor prognosis Review of Systems General: Fatigue, Malaise Pulmonary: Dyspnea Objective Exam Vital Signs Vital Signs Date Time Temp Pulse Resp B/P (MAP) Pulse Ox O2 Delivery O2 Flow Rate FiO2 08/13/21 06:00 71 16 134/70 (91) 97 NIV Bilevel 50.00 08/13/21 05:00 36.4 08/13/21 04:00 65 Capillary Refill : Less Than 3 Seconds General Appearance: WD/WN, Anxious, Chronically ill, Mild Distress, Obese Respiratory: Lungs Clear, Normal Breath Sounds Cardiovascular: Regular Rate, Rhythm Neurologic/Psychiatric: Alert, Oriented x3 Results/Procedures Lab Laboratory Tests 08/13/21 03:30 Patient resulted labs reviewed. Assessment/Plan Assessment and Plan Assess & Plan/Chief Complaint Assessment: Sepsis UTI Super morbid obesity BMI 73 Acute on chronic respiratory failure Obesity hypoventilation syndrome CO2 retention requiring BiPAP Hypertension Hyperlipidemia Diabetes Paroxysmal atrial fibrillation Anticoagulation contraindicated due to life-threatening bleed in the past Hypothyroidism Right hip pain Plan: Supportive care IV antibiotics ICU BiPAP 08/05/21: Monitor closely Transfer to 4th [address] Dr Talamantes right hip pain 08/06/2021: Social work for disposition Poor prognosis due to increased BMI 76 08/07/2021: BiPAP Supportive care Poor prognosis 08/09/2021: Supportive care BiPAP 08/10/2021: Supportive care BiPAP 08/11/2021: Supportive care ICU [place]? 08/12/2021: [place] Diagnosis/Problems Diagnosis/Problems (1) Sepsis (2) Hypotension Status: Resolved Resolution Date/Time: 04/28/20 @ 13:41 (3) Hypothyroidism Status: Chronic (4) Renal failure (ARF), acute on chronic Status: Acute (5) Hyperlipidemia Status: Chronic (6) Atrial fibrillation Status: Chronic (7) Coronary artery disease Status: Chronic (8) Diabetes Status: Chronic (9) COPD (chronic obstructive pulmonary disease) Status: Chronic EDEL BLISS DO August 12, 2021 06:39
[2021-08-12] MEDS: SENNOSIDES 8.6 MG (SENOKOT) TAB PO SCH (07:58)
[2021-08-12] MEDS: FOLIC ACID 1 MG TAB PO SCH (07:58)
[2021-08-12] MEDS: amLODIPine 5 MG (NORVASC) TAB PO SCH (07:58)
[2021-08-12] MEDS: DOCUSATE SODIUM 100 MG (COLACE) CAP PO SCH (07:59)
[2021-08-12] MEDS: PANTOPRAZOLE 20 MG TABLET (PROTONIX) PO SCH ×2 (07:59→20:00)
[2021-08-12] MEDS: MICONAZOLE 2% POWDER (DESENEX AF) 90 GM TOP SCH ×2 (08:01→20:00)
--- NOTE | 2021-08-12 09:11 | Tele-ICU Progress Note ---
Subjective Date Seen by a Provider: August 12, 2021 Time Seen by a Provider: 09:11 Subjective/Events-last exam Patient today states that she is breathing somewhat better. Currently on Vapotherm at 65% and 25 L. Eating breakfast at the time of my video visit. Case reviewed with the SURGICAL GARMENT INSPECTOR. Overall she is improving Review of Systems ROS PER RN Sepsis Event Evaluation Height, Weight, BMI Height: 5'5.00" Weight: 380lbs. 0.0oz. 172.645864ni; 71.42 BMI Method: Exam Exam Patient acknowledged, consented, and participated in this virtual visit which was conducted using real time audio/video Vital Signs Date Time Temp Pulse Resp B/P (MAP) Pulse Ox O2 Delivery O2 Flow Rate FiO2 08/12/21 07:46 36.0 08/12/21 07:45 61 08/12/21 07:07 60 28 93 40.00 08/12/21 06:00 67 22 127/54 (78) 92 NIV Bilevel 40.00 08/12/21 05:00 64 34 116/50 (72) 91 NIV Bilevel 40.00 08/12/21 04:00 64 24 110/42 (63) 92 NIV Bilevel 40.00 08/12/21 03:00 69 30 107/44 (82) 91 NIV Bilevel 40.00 08/12/21 02:38 72 28 94 40.00 08/12/21 02:00 67 30 125/50 (74) 92 NIV Bilevel 40.00 08/12/21 01:00 67 08/12/21 01:00 67 142/56 (78) 91 NIV Bilevel 40.00 08/12/21 00:00 68 24 115/46 (72) 92 NIV Bilevel 40.00 08/11/21 23:00 69 31 127/53 (77) 92 NIV Bilevel 40.00 08/11/21 22:35 37.3 08/11/21 22:00 73 32 108/46 (64) 89 NIV Bilevel 40.00 08/11/21 21:40 76 25 92 NIV Bilevel 40.00 08/11/21 21:37 75 25 91 40.00 08/11/21 21:00 79 19 110/49 (69) 91 Vapotherm 60.00 25.00 08/11/21 20:18 Vapotherm 60.00 25.00 08/11/21 20:15 77 10 128/54 (78) 89 Vapotherm 60.00 25.00 08/11/21 20:00 92 Vapotherm 25.00 60 08/11/21 20:00 77 22 138/62 (99) 94 Vapotherm 60.00 25.00 08/11/21 20:00 36.8 08/11/21 19:45 77 25 121/51 (74) 93 Vapotherm 60.00 25.00 08/11/21 19:30 81 21 154/62 (87) 94 Vapotherm 60.00 25.00 08/11/21 19:15 81 31 116/50 (85) Vapotherm 60.00 25.00 08/11/21 19:00 80 23 135/56 (90) 93 Vapotherm 60.00 25.00 08/11/21 19:00 80 08/11/21 18:30 21 95 Vapotherm 60.00 25.00 08/11/21 18:24 97 Vapotherm 25.00 60 08/11/21 18:00 78 24 140/58 (85) 97 Vapotherm 90.00 25.00 08/11/21 17:00 76 18 121/52 (75) 91 Vapotherm 90.00 25.00 08/11/21 16:00 76 21 129/74 (92) 94 Vapotherm 75.00 35.00 08/11/21 15:21 36.4 08/11/21 15:00 81 9 135/62 (86) 95 Vapotherm 75.00 35.00 08/11/21 14:16 92 Vapotherm 35.00 75 08/11/21 14:00 77 28 121/55 (77) 94 Vapotherm 75.00 35.00 08/11/21 13:00 74 28 112/41 (64) 94 Vapotherm 75.00 35.00 08/11/21 12:48 73 08/11/21 12:00 71 28 136/56 (82) 95 Vapotherm 75.00 35.00 08/11/21 12:00 36.2 08/11/21 11:00 75 24 120/51 (74) 94 Vapotherm 75.00 35.00 08/11/21 10:25 27 93 Vapotherm 75.00 35.00 08/11/21 10:20 96 Vapotherm 35.00 75 08/11/21 10:00 70 25 123/55 (77) 97 Vapotherm 70.00 40.00 I & O 08/12/21 07:00 Intake Total 1700 ml Output Total 4950 ml Balance -3250 ml Height & Weight Height: 5'5.00" Weight: 380lbs. 0.0oz. 172.350067bv; 71.42 BMI Method: General Appearance: WD/WN, Anxious, Chronically ill, Mild Distress, Obese HEENT: PERRL/EOMI, Moist Mucous Membranes Neck: Full Range of Motion, Normal Inspection Respiratory: No Accessory Muscle Use, No Respiratory Distress, Decreased Breath Sounds Cardiovascular: Regular Rate, Rhythm Capillary Refill: Less Than 3 Seconds Extremity: Normal Range of Motion, No Calf Tenderness Neurologic/Psychiatric: Alert, Oriented x3 Skin: Warm/Dry Lymphatic: No Adenopathy Other comments PE PER RN Results Lab Laboratory Tests 08/11/21 04:30 08/12/21 03:40 Assessment/Plan Assessment/Plan 1. Urinary tract infection possibly with E. coli. 2. Acute and chronic respiratory failure secondary to underlying sleep apnea. 3. Super morbid obesity with a BMI of 73. 4. Hypertension 5. History of paroxysmal atrial fibrillation but apparently anticoagulation is contraindicated due to life-threatening bleed in the past. 6. History of hypothyroidism. Recommendations 1. Continue Vapotherm and BiPAP as needed. 2. Antibiotics with meropenem and await culture report. 3. Hypertension diabetes and hypothyroidism management per primary care physician. 4. Prognosis is guarded due to morbid obesity Critical Care: Critically Ill Patient (20) Time spent with patient (mins): 20 GIORGI MARINO MD August 12, 2021 09:11
--- NOTE | 2021-08-12 11:17 | Cardiology Progress Note ---
Subjective Date Seen by Provider: August 12, 2021 Time Seen by Provider: 11:12 Subjective/Events-last exam Patient was seen and evaluated. Currently on Vapotherm, feeling better, still having significant cough. Review of Systems General: No Chills, No Night Sweats; Fatigue, Malaise; No Appetite, No Other HEENT: No Head Aches, No Visual Changes, No Eye Pain, No Ear Pain, No Dysphasia, No Sinus Congestion, No Post Nasal Drip, No Sore Throat, No Other Pulmonary: Dyspnea; No Cough, No Pleuritic Chest Pain, No Other Cardiovascular: Edema; No: Chest Pain, Palpitations, Orthopnea, Paroxysmal Noc. Dyspnea, Lt Headedness, Other Objective-Cardiology Exam Last Set of Vital Signs Vital Signs 08/12/21 08/12/21 08/12/21 08/12/21 07:46 10:00 10:45 10:52 Temp 36.0 Pulse 66 Resp 25 B/P (MAP) 132/57 (82) Pulse Ox 93 O2 Delivery NIV Bilevel O2 Flow Rate 40.00 I&O Intake and Output 08/12/21 00:00 Intake Total 2180 ml Output Total 5600 ml Balance -3420 ml Intake Oral 2180 ml Output Urine Total 5600 ml # Bowel Movements 1 General: Alert, Cooperative, Moderate Distress HEENT: Atraumatic, PERRLA Neck: Supple, No JVD Lungs: Other (decreased breath sounds. ) Heart: Regular Rate, Normal S1, Normal S2, No Murmurs Abdomen: Normal Bowel Sounds Extremities: No Clubbing Neuro: Normal Speech Psych/Mental Status: Mental Status NL, Mood NL Results Lab Laboratory Tests 08/12/21 03:40 A/P-Cardiology Admission Diagnosis Urosepsis CAD PAF HTN Assessment/Plan Status post acute respiratory failure, history of chronic respiratory insufficiency due to chronic CO2 retention and morbid obesity Weaned off the BiPAP, currently on Vapotherm. Responded well to Lasix. I will start her on IV Lasix and evaluate tolerance and response Urosepsis, management per medical services Coronary artery disease with history of stents x2 to the RCA,3.512 mm vision stent in 2009. 3.012 mm vision stent in 2010 with most recent cardiac catheterization in November 2015 revealing patent stents to the RCA with otherwise nonobstructive disease. 2D Echo done 08/05/21 showing EF 60-65%, PA 20-25mmHg. Technically difficult study. Paroxysmal atrial fibrillation, diagnosed April 2019, was hospitalized for A. fib with RVR with tachybradycardia episodes, converted to sinus rhythm, currently in sinus rhythm History of GI bleed on 04/27/2020 requiring blood transfusion. 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 Hyperlipidemia, monitor lipids Diabetes mellitus-managed by primary care physician, continue to monitor Severe obesity, BMI 74 was referred for possible weight loss surgery in the past, however patient has decided against surgery at this time. Bilateral lower extremity pain and swelling-discussed weight loss. Mild bilateral nonobstructive carotid artery stenosis, most recent carotid duplex done in November 2018, continue to monitor. Hypothyroidism, continue to monitor thyroid function test. Obstructive sleep apnea BELLE VERA MD August 12, 2021 11:17
[2021-08-12] MEDS: ENOXAPARIN 60 MG/0.6 ML (LOVENOX) SYR SC SCH (11:33)
[2021-08-12] MEDS: FUROSEMIDE 40 MG/4 ML INJ (LASIX) IVP SCH ×2 (11:34→17:12)
[2021-08-12] MEDS: lisINopril 5 MG (PRINIVIL) TABLET PO SCH (20:00)
[2021-08-13] VITALS (28 sets, daily range): BP systolic 101–135; BP diastolic 46–70
[2021-08-13] MEDS: RT-ALBUTEROL/IPRATROPIUM 3 ML (DUONEB) VIAL INH SCH ×6 (02:34→22:00)
[2021-08-13] MEDS: morphine INJ 4 MG/ML 1 ML (VIAL/SYRINGE) IV PRN ×3 (02:44→23:42)
[2021-08-13 03:45] LABS: BASOPHILS % (AUTO) 0 % (0-10); EOSINOPHILS # (AUTO) 0.3 10^3/uL (0.0-0.3); EOSINOPHILS % (AUTO) 2 % (0-10); HEMATOCRIT 33 % (35-52); HEMOGLOBIN 9.5 g/dL (11.5-16.0); LYMPHOCYTES # (AUTO) 1.5 10^3/uL (1.0-4.0); LYMPHOCYTES % (AUTO) 12 % (12-44); MEAN CORPUSCULAR HEMOGLOBIN 26 pg (25-34); MEAN CORPUSCULAR HGB CONC 29 g/dL (32-36); MEAN CORPUSCULAR VOLUME 88 fL (80-99); MEAN PLATELET VOLUME 9.3 fL (9.0-12.2); MONOCYTES # (AUTO) 0.8 10^3/uL (0.0-1.0); MONOCYTES % (AUTO) 7 % (0-12); NEUTROPHILS # (AUTO) 9.6 10^3/uL (1.8-7.8); NEUTROPHILS % (AUTO) 78 % (42-75); PLATELET COUNT 395 10^3/uL (130-400); WHITE BLOOD COUNT 12.4 10^3/uL (4.3-11.0)
[2021-08-13] MEDS: ALPRAZolam 0.5 MG (XANAX) TAB PO SCH ×7 (04:00→23:44)
[2021-08-13 04:02] LABS: POTASSIUM 4.3 MMOL/L (3.6-5.0)
[2021-08-13 04:03] LABS: CALCIUM 8.9 MG/DL (8.5-10.1)
[2021-08-13 04:06] LABS: BILIRUBIN,TOTAL 0.5 MG/DL (0.1-1.0)
[2021-08-13 04:08] LABS: CREATININE SERUM 0.82 MG/DL (0.60-1.30)
[2021-08-13 04:11] LABS: MAGNESIUM 1.6 MG/DL (1.6-2.4)
[2021-08-13] MEDS: LEVOTHYROXINE 100 MCG (LEVOTHROID) TAB PO SCH (05:07)
[2021-08-13] MEDS: LEVOTHYROXINE 75 MCG (LEVOTHROID) TABLET PO SCH (05:07)
[2021-08-13] MEDS: SENNOSIDES 8.6 MG (SENOKOT) TAB PO SCH ×3 (05:23→21:25)
[2021-08-13] MEDS: DOCUSATE SODIUM 100 MG (COLACE) CAP PO SCH ×3 (05:23→21:26)
[2021-08-13] MEDS: POTASSIUM CL 10MEQ/50ML IVPB 50 ML IV SCH (05:25)
[2021-08-13] MEDS: KCL 20 MEQ TAB (K-DUR) PO SCH (05:25)
[2021-08-13] MEDS: MAGNESIUM 1 GM/100 ML IVPB 100 ML IV SCH ×3 (05:25→05:55)
[2021-08-13] MEDS: inSUlin ASPART (NovoLOG) 1 UNIT/0.01 ML (CHARGE PER UNIT) SC SCH ×7 (05:31→21:37)
--- NOTE | 2021-08-13 06:44 | Progress Note - Hospitalist ---
Subjective HPI/CC On Admission Date Seen by Provider: August 13, 2021 Time Seen by Provider: 09:00 Pt doing about the same Maintained on BiPAP Chronic right hip and knee pain She does have pain medication ordered ABG will be ordered She appears to be BIPAP dependent Overall, very poor prognosis Subjective/Events-last exam No major changes Cough is improved BiPAP maintained Vapotherm during the day, BiPAP during the night Review of Systems General: Fatigue, Malaise Pulmonary: Dyspnea Objective Exam Vital Signs Vital Signs Date Time Temp Pulse Resp B/P (MAP) Pulse Ox O2 Delivery O2 Flow Rate FiO2 08/14/21 04:00 59 20 96/41 (59) 95 NIV Bilevel 60.00 08/13/21 22:45 36.2 08/13/21 20:00 65 Capillary Refill : Less Than 3 Seconds General Appearance: No Apparent Distress, WD/WN, Anxious, Chronically ill, Obese Respiratory: Lungs Clear, Normal Breath Sounds Cardiovascular: Regular Rate, Rhythm Neurologic/Psychiatric: Alert, Oriented x3 Results/Procedures Lab Laboratory Tests 08/14/21 04:00 Patient resulted labs reviewed. Assessment/Plan Assessment and Plan Assess & Plan/Chief Complaint Assessment: Sepsis UTI Super morbid obesity BMI 73 Acute on chronic respiratory failure Obesity hypoventilation syndrome CO2 retention requiring BiPAP Hypertension Hyperlipidemia Diabetes Paroxysmal atrial fibrillation Anticoagulation contraindicated due to life-threatening bleed in the past Hypothyroidism Right hip pain Plan: Supportive care IV antibiotics ICU BiPAP 08/05/21: Monitor closely Transfer to 4th [address] Dr Talamantes right hip pain 08/06/2021: Social work for disposition Poor prognosis due to increased BMI 76 08/07/2021: BiPAP Supportive care Poor prognosis 08/09/2021: Supportive care BiPAP 08/10/2021: Supportive care BiPAP 08/11/2021: Supportive care ICU [place]? 08/12/2021: [place] 08/13/2021: Await [place] Supportive care Critical Care Critically Ill Patient (20) Diagnosis/Problems Diagnosis/Problems (1) Sepsis (2) Hypotension Status: Resolved Resolution Date/Time: 04/28/20 @ 13:41 (3) Hypothyroidism Status: Chronic (4) Renal failure (ARF), acute on chronic Status: Acute (5) Hyperlipidemia Status: Chronic (6) Atrial fibrillation Status: Chronic (7) Coronary artery disease Status: Chronic (8) Diabetes Status: Chronic (9) COPD (chronic obstructive pulmonary disease) Status: Chronic EDEL BLISS DO August 13, 2021 06:44
--- NOTE | 2021-08-13 07:32 | Physical Therapy Progress Note ---
Therapy Progress Note Patient was transferred to ICU due to medical complications. Will need new orders for PT when appropriate. Per report, patient may transfer to [place]. Will continue to monitor patient status. SIL HENRIQUEZ PT August 13, 2021 07:32
--- NOTE | 2021-08-13 07:53 | Cardiology Progress Note ---
Subjective Date Seen by Provider: August 13, 2021 Time Seen by Provider: 07:52 Subjective/Events-last exam Patient was seen at bedside, she was on BiPAP, feeling better. Reporting improvement Review of Systems General: No Chills, No Night Sweats; Fatigue, Malaise; No Appetite, No Other HEENT: No Head Aches, No Visual Changes, No Eye Pain, No Ear Pain, No Dysphasia, No Sinus Congestion, No Post Nasal Drip, No Sore Throat, No Other Pulmonary: Dyspnea; No Cough, No Pleuritic Chest Pain, No Other Cardiovascular: No: Chest Pain, Palpitations, Orthopnea, Paroxysmal Noc. Dyspnea, Edema, Lt Headedness, Other Objective-Cardiology Exam Last Set of Vital Signs Vital Signs 08/13/21 08/13/21 08/13/21 04:00 06:00 07:09 Pulse 63 Resp 18 B/P (MAP) 134/70 (91) Pulse Ox 94 O2 Delivery NIV Bilevel O2 Flow Rate 60.00 FiO2 65 I&O Intake and Output 08/13/21 00:00 Intake Total 2600 ml Output Total 5725 ml Balance -3125 ml Intake Oral 2400 ml IV Total 200 ml Output Urine Total 5725 ml # Bowel Movements 1 General: Alert, Cooperative, Moderate Distress HEENT: Atraumatic, PERRLA Neck: Supple, No JVD Lungs: Other (decreased breath sounds. ) Heart: Regular Rate, Normal S1, Normal S2, No Murmurs Abdomen: Normal Bowel Sounds Extremities: No Clubbing Neuro: Normal Speech Psych/Mental Status: Mental Status NL, Mood NL Results Lab Laboratory Tests 08/13/21 03:30 A/P-Cardiology Admission Diagnosis Urosepsis CAD PAF HTN Assessment/Plan Status post acute respiratory failure, history of chronic respiratory insufficiency due to chronic CO2 retention and morbid obesity Was on BiPAP this morning, he was on BiPAP at night. Vapotherm during the day. Tolerating Lasix well. Urosepsis, management per medical services Coronary artery disease with history of stents x2 to the RCA,3.512 mm vision stent in 2009. 3.012 mm vision stent in 2010 with most recent cardiac catheterization in November 2015 revealing patent stents to the RCA with otherwise nonobstructive disease. 2D Echo done 08/05/21 showing EF 60-65%, PA 20-25mmHg. Technically difficult study. Paroxysmal atrial fibrillation, diagnosed April 2019, was hospitalized for A. fib with RVR with tachybradycardia episodes, converted to sinus rhythm, currently in sinus rhythm History of GI bleed on 04/27/2020 requiring blood transfusion. 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 Hyperlipidemia, monitor lipids Diabetes mellitus-managed by primary care physician, continue to monitor Severe obesity, BMI 74 was referred for possible weight loss surgery in the past, however patient has decided against surgery at this time. Bilateral lower extremity pain and swelling-discussed weight loss. Mild bilateral nonobstructive carotid artery stenosis, most recent carotid duplex done in November 2018, continue to monitor. Hypothyroidism, continue to monitor thyroid function test. Obstructive sleep apnea BELLE VERA MD August 13, 2021 07:53
[2021-08-13] MEDS: FUROSEMIDE 40 MG/4 ML INJ (LASIX) IVP SCH ×2 (08:05→16:24)
[2021-08-13] MEDS: PANTOPRAZOLE 20 MG TABLET (PROTONIX) PO SCH ×2 (08:05→21:38)
[2021-08-13] MEDS: MULTIVIT W/MINERALS TAB (THERAGRAN M) PO SCH (08:06)
[2021-08-13] MEDS: FOLIC ACID 1 MG TAB PO SCH (08:06)
[2021-08-13] MEDS: GABAPENTIN 600 MG (NEURONTIN) TAB PO SCH ×4 (08:06→23:41)
[2021-08-13] MEDS: MICONAZOLE 2% POWDER (DESENEX AF) 90 GM TOP SCH ×2 (08:07→21:38)
[2021-08-13] MEDS: amLODIPine 5 MG (NORVASC) TAB PO SCH (08:07)
[2021-08-13] MEDS: ENOXAPARIN 60 MG/0.6 ML (LOVENOX) SYR SC SCH ×3 (10:26→23:41)
[2021-08-13] MEDS: guaiFENesin/DM (ROBITUSSIN DM) 10 ML UDC PO PRN (10:26)
[2021-08-13] MEDS ORDERED: IPRA3AMP31 INH (10:55)
[2021-08-13] MEDS ORDERED: SNN187T PO (10:55)
[2021-08-13] MEDS ORDERED: ALPR0.5T7 PO (10:55)
[2021-08-13] MEDS ORDERED: OXC5T PO (10:55)
[2021-08-13] MEDS ORDERED: POTA-169 PO (10:55)
[2021-08-13] MEDS ORDERED: ENOX60DI7 SC (10:55)
[2021-08-13] MEDS ORDERED: FURO10VI IVP (10:55)
[2021-08-13] MEDS ORDERED: GUAI5SYR PO (10:55)
[2021-08-13] MEDS: lisINopril 5 MG (PRINIVIL) TABLET PO SCH (21:38)
[2021-08-13] MEDS: MELATONIN 3 MG TABLET PO PRN (21:41)
[2021-08-14] VITALS (27 sets, daily range): BP systolic 95–140; BP diastolic 40–61
[2021-08-14] MEDS: RT-ALBUTEROL/IPRATROPIUM 3 ML (DUONEB) VIAL INH SCH ×6 (02:52→22:41)
[2021-08-14 04:13] LABS: BASOPHILS % (AUTO) 0 % (0-10); EOSINOPHILS # (AUTO) 0.2 10^3/uL (0.0-0.3); EOSINOPHILS % (AUTO) 2 % (0-10); HEMATOCRIT 32 % (35-52); HEMOGLOBIN 9.3 g/dL (11.5-16.0); LYMPHOCYTES # (AUTO) 1.5 10^3/uL (1.0-4.0); LYMPHOCYTES % (AUTO) 11 % (12-44); MEAN CORPUSCULAR HEMOGLOBIN 26 pg (25-34); MEAN CORPUSCULAR HGB CONC 29 g/dL (32-36); MEAN CORPUSCULAR VOLUME 88 fL (80-99); MEAN PLATELET VOLUME 9.3 fL (9.0-12.2); MONOCYTES # (AUTO) 0.8 10^3/uL (0.0-1.0); MONOCYTES % (AUTO) 6 % (0-12); NEUTROPHILS # (AUTO) 10.4 10^3/uL (1.8-7.8); NEUTROPHILS % (AUTO) 80 % (42-75); PLATELET COUNT 394 10^3/uL (130-400); WHITE BLOOD COUNT 13.1 10^3/uL (4.3-11.0)
[2021-08-14 04:40] LABS: ALBUMIN 2.9 GM/DL (3.2-4.5)
[2021-08-14 04:41] LABS: POTASSIUM 4.2 MMOL/L (3.6-5.0)
[2021-08-14 04:42] LABS: CALCIUM 8.6 MG/DL (8.5-10.1)
[2021-08-14 04:43] LABS: TOTAL PROTEIN 6.9 GM/DL (6.4-8.2)
[2021-08-14 04:45] LABS: BILIRUBIN,TOTAL 0.5 MG/DL (0.1-1.0)
[2021-08-14 04:46] LABS: CREATININE SERUM 0.9 MG/DL (0.60-1.30)
[2021-08-14 04:49] LABS: MAGNESIUM 1.6 MG/DL (1.6-2.4)
--- NOTE | 2021-08-14 06:03 | Progress Note - Hospitalist ---
Subjective HPI/CC On Admission Date Seen by Provider: August 14, 2021 Time Seen by Provider: 10:00 Pt doing about the same Maintained on BiPAP Chronic right hip and knee pain She does have pain medication ordered ABG will be ordered She appears to be BIPAP dependent Overall, very poor prognosis Subjective/Events-last exam No major changes Awaiting [place] admit for insurance to approve BiPAP dependent at night, Vapotherm during the day at 30L at 60% Review of Systems General: Fatigue, Malaise Pulmonary: Dyspnea Objective Exam Vital Signs Vital Signs Date Time Temp Pulse Resp B/P (MAP) Pulse Ox O2 Delivery O2 Flow Rate FiO2 08/14/21 20:00 Vapotherm 40.00 100 08/14/21 18:30 93 08/14/21 18:00 69 112/51 (71) 08/14/21 17:00 22 08/14/21 15:57 36.7 Capillary Refill : Less Than 3 Seconds General Appearance: No Apparent Distress, WD/WN, Chronically ill, Obese Respiratory: Normal Breath Sounds, No Accessory Muscle Use Cardiovascular: Regular Rate, Rhythm Neurologic/Psychiatric: Alert, Oriented x3 Results/Procedures Lab Laboratory Tests 08/14/21 04:00 Patient resulted labs reviewed. Assessment/Plan Assessment and Plan Assess & Plan/Chief Complaint Assessment: Sepsis UTI Super morbid obesity BMI 73 Acute on chronic respiratory failure Obesity hypoventilation syndrome CO2 retention requiring BiPAP Hypertension Hyperlipidemia Diabetes Paroxysmal atrial fibrillation Anticoagulation contraindicated due to life-threatening bleed in the past Hypothyroidism Right hip pain Plan: Supportive care IV antibiotics ICU BiPAP 08/05/21: Monitor closely Transfer to 4th [address] Dr Talamantes right hip pain 08/06/2021: Social work for disposition Poor prognosis due to increased BMI 76 08/07/2021: BiPAP Supportive care Poor prognosis 08/09/2021: Supportive care BiPAP 08/10/2021: Supportive care BiPAP 08/11/2021: Supportive care ICU [place]? 08/12/2021: [place] 08/13/2021: Await [place] Supportive care 08/14: Await [place] Critical Care Critically Ill Patient (20) Diagnosis/Problems Diagnosis/Problems (1) Sepsis (2) Hypotension Status: Resolved Resolution Date/Time: 04/28/20 @ 13:41 (3) Hypothyroidism Status: Chronic (4) Renal failure (ARF), acute on chronic Status: Acute (5) Hyperlipidemia Status: Chronic (6) Atrial fibrillation Status: Chronic (7) Coronary artery disease Status: Chronic (8) Diabetes Status: Chronic (9) COPD (chronic obstructive pulmonary disease) Status: Chronic EDEL BLISS DO August 14, 2021 06:03
[2021-08-14] MEDS: inSUlin ASPART (NovoLOG) 1 UNIT/0.01 ML (CHARGE PER UNIT) SC SCH ×7 (06:21→20:11)
[2021-08-14] MEDS: KCL 20 MEQ TAB (K-DUR) PO SCH (06:21)
[2021-08-14] MEDS: POTASSIUM CL 10MEQ/50ML IVPB 50 ML IV SCH (06:21)
[2021-08-14] MEDS: ALPRAZolam 0.5 MG (XANAX) TAB PO SCH ×5 (06:21→20:11)
[2021-08-14] MEDS: MAGNESIUM 1 GM/100 ML IVPB 100 ML IV SCH ×3 (06:21→07:59)
[2021-08-14] MEDS: LEVOTHYROXINE 100 MCG (LEVOTHROID) TAB PO SCH ×2 (06:21→06:40)
[2021-08-14] MEDS: LEVOTHYROXINE 75 MCG (LEVOTHROID) TABLET PO SCH ×2 (06:22→06:40)
[2021-08-14] MEDS: PANTOPRAZOLE 20 MG TABLET (PROTONIX) PO SCH ×2 (07:58→20:11)
[2021-08-14] MEDS: FOLIC ACID 1 MG TAB PO SCH (07:58)
[2021-08-14] MEDS: MULTIVIT W/MINERALS TAB (THERAGRAN M) PO SCH (07:58)
[2021-08-14] MEDS: GABAPENTIN 600 MG (NEURONTIN) TAB PO SCH ×3 (07:58→21:57)
[2021-08-14] MEDS: FUROSEMIDE 40 MG/4 ML INJ (LASIX) IVP SCH ×2 (07:58→16:14)
[2021-08-14] MEDS: DOCUSATE SODIUM 100 MG (COLACE) CAP PO SCH ×2 (07:59→20:10)
[2021-08-14] MEDS: SENNOSIDES 8.6 MG (SENOKOT) TAB PO SCH ×2 (08:00→20:11)
[2021-08-14] MEDS: MICONAZOLE 2% POWDER (DESENEX AF) 90 GM TOP SCH ×2 (08:00→20:12)
[2021-08-14] MEDS: amLODIPine 5 MG (NORVASC) TAB PO SCH (08:01)
--- NOTE | 2021-08-14 08:34 | Cardiology Progress Note ---
Subjective Date Seen by Provider: August 14, 2021 Time Seen by Provider: 08:33 Subjective/Events-last exam Patient was seen at bedside, laying down comfortably, currently on Vapotherm Review of Systems General: No Chills, No Night Sweats; Fatigue, Malaise; No Appetite, No Other HEENT: No Head Aches, No Visual Changes, No Eye Pain, No Ear Pain, No Dysphasia, No Sinus Congestion, No Post Nasal Drip, No Sore Throat, No Other Pulmonary: Dyspnea; No Cough, No Pleuritic Chest Pain, No Other Cardiovascular: No: Chest Pain, Palpitations, Orthopnea, Paroxysmal Noc. Dyspnea, Edema, Lt Headedness, Other Objective-Cardiology Exam Last Set of Vital Signs Vital Signs 08/14/21 08/14/21 08/14/21 04:00 07:40 08:00 Temp 36.2 Pulse 69 Resp 8 B/P (MAP) 115/50 (71) Pulse Ox 93 O2 Delivery NIV Bilevel O2 Flow Rate 60.00 FiO2 65 I&O Intake and Output 08/14/21 00:00 Intake Total 1500 ml Output Total 4350 ml Balance -2850 ml Intake Oral 1500 ml Output Urine Total 4350 ml General: Alert, Cooperative, Moderate Distress HEENT: Atraumatic, PERRLA Neck: Supple, No JVD Lungs: Other (decreased breath sounds. ) Heart: Regular Rate, Normal S1, Normal S2, No Murmurs Abdomen: Normal Bowel Sounds Extremities: No Clubbing Neuro: Normal Speech Psych/Mental Status: Mental Status NL, Mood NL Results Lab Laboratory Tests 08/14/21 04:00 A/P-Cardiology Admission Diagnosis Urosepsis CAD PAF HTN Assessment/Plan Status post acute respiratory failure, history of chronic respiratory insuff iciency due to chronic CO2 retention and morbid obesity Currently on Vapotherm 85%. Awaiting [employer] Tolerating Lasix well. Urosepsis, management per medical services Coronary artery disease with history of stents x2 to the RCA,3.512 mm vision stent in 2009. 3.012 mm vision stent in 2010 with most recent cardiac catheterization in November 2015 revealing patent stents to the RCA with otherwise nonobstructive disease. 2D Echo done 08/05/21 showing EF 60-65%, PA 20-25mmHg. Technically difficult study. Paroxysmal atrial fibrillation, diagnosed April 2019, was hospitalized for A. fib with RVR with tachybradycardia episodes, converted to sinus rhythm, currently in sinus rhythm History of GI bleed on 04/27/2020 requiring blood transfusion. 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 Hyperlipidemia, monitor lipids Diabetes mellitus-managed by primary care physician, continue to monitor Severe obesity, BMI 74 was referred for possible weight loss surgery in the past, however patient has decided against surgery at this time. Bilateral lower extremity pain and swelling-discussed weight loss. Mild bilateral nonobstructive carotid artery stenosis, most recent carotid duplex done in November 2018, continue to monitor. Hypothyroidism, continue to monitor thyroid function test. Obstructive sleep apnea BELLE VERA MD August 14, 2021 08:34
[2021-08-14] MEDS: ENOXAPARIN 60 MG/0.6 ML (LOVENOX) SYR SC SCH ×2 (11:40→21:58)
--- NOTE | 2021-08-14 15:40 | Tele-ICU Progress Note ---
Subjective Date Seen by a Provider: August 14, 2021 Time Seen by a Provider: 15:39 Subjective/Events-last exam Tele-ICU Physician , Progress Note ) Available chart/ vitals / labs / Images reviewed Video assessment done using teleICU camera, rest of exam as per RN Discussed with RN , EXAM PER RN Events overnight : Afebrile FiO2 - VT I/O = neg Drips: Pressors: , hemodynamically stable Consultants: cassie Hospital course: Pt is a 66 y/o female, direct admit from an outside hospital. Pt found to have Sepsis-UTI and resp failure, requiring Bipap therpy. Pt transafered for highte level of care with ICU capabilities. 08/04 - 20/ 50% , 500 rr 26 08/05 BIPAP 14/11 30 %rr 30 tv 400 (08/10) READMIT from floor for acute resp failure - BIPAP + lasix A/P Acute resp failure 08/04 NIPPV 14/11 50% , 500 rr 26- wenaed off --> trnsfered to med floor on high flow 02 10 L and nocturnal Bipap 40 % 08/10 - acute resp failure - BIPAP + lasix --> VT 45 % 70% 08/14 - BiPAP at night. Vapotherm 30 L 85 % during the day - cont doiresis LTAC planned UTI - cx ? - cefepime 08/05 d 6 today CAD, s/p stenting - cont to monitor - ECHO 2019 - EF 55% - RVSP 40, , PA 20-25mmHg H/o Afib- in sinus now - iftikhar 60 q12 ( proph -not on AC ( contraindicated with previous bleed as per chart DM II - ISS Anemia - stable ISABELA/ [facility] - will need to cont on nocturnal bgiap ( has CPAP at home and 3 L o2 Anxiety - Xanax and prn ativan Lines : R IJ 08/03 (Central Line Necessity Reviewed) Mack: + OG: Nutrition: po Analgesia: Anxiety/ delirium Xanax and prn ativan VTE Prophylaxis: - iftikhar 60 q12 Stress Ulcer Prophylaxis: PO Plans in collaboration with bedside consultants and IM MDs. Discussed with RN to reach out if any questions or concerns A total of 20 minutes of critical care time was devoted to this patient today, required to treat and/or prevent further deterioration of critical care condition ( as above Sepsis Event Evaluation Height, Weight, BMI Height: 5'5.00" Weight: 380lbs. 0.0oz. 172.401272hi; 71.42 BMI Method: Exam Exam Patient acknowledged, consented, and participated in this virtual visit which was conducted using real time audio/video Vital Signs Date Time Temp Pulse Resp B/P (MAP) Pulse Ox O2 Delivery O2 Flow Rate FiO2 08/14/21 15:00 65 26 115/53 (73) 90 Vapotherm 80.00 25.00 08/14/21 14:23 95 Vapotherm 30.00 85 08/14/21 14:00 62 21 129/61 (83) 93 Vapotherm 80.00 25.00 08/14/21 13:00 61 22 113/55 (74) 92 NIV Bilevel 60.00 08/14/21 13:00 61 08/14/21 12:00 65 39 119/52 (74) 93 NIV Bilevel 60.00 08/14/21 12:00 Vapotherm 30.00 85 08/14/21 11:49 36.3 08/14/21 11:00 70 20 95/48 (64) 90 NIV Bilevel 60.00 08/14/21 10:24 92 Vapotherm 30.00 85 08/14/21 10:00 71 16 110/49 (69) 92 NIV Bilevel 60.00 08/14/21 09:00 72 33 101/53 (69) 91 NIV Bilevel 60.00 08/14/21 08:00 Vapotherm 30.00 65 08/14/21 08:00 69 8 115/50 (71) 93 NIV Bilevel 60.00 08/14/21 07:40 36.2 08/14/21 07:00 65 08/14/21 07:00 65 26 119/53 (75) 97 NIV Bilevel 60.00 08/14/21 06:46 58 18 95 85.00 08/14/21 06:00 55 20 95/43 (60) 97 NIV Bilevel 60.00 08/14/21 05:00 58 22 97/42 (60) 96 NIV Bilevel 60.00 08/14/21 04:00 Vapotherm 30.00 65 08/14/21 04:00 59 20 96/41 (59) 95 NIV Bilevel 60.00 08/14/21 03:00 63 21 106/46 (66) 95 NIV Bilevel 60.00 08/14/21 02:52 63 22 95 85.00 08/14/21 02:00 64 22 102/40 (60) 95 NIV Bilevel 60.00 08/14/21 01:00 66 22 110/46 (67) 95 NIV Bilevel 60.00 08/14/21 01:00 66 08/14/21 00:00 Vapotherm 30.00 65 08/14/21 00:00 66 23 115/54 (74) 92 NIV Bilevel 60.00 08/13/21 23:00 66 21 101/46 (64) 88 NIV Bilevel 60.00 08/13/21 22:45 36.2 08/13/21 22:01 71 22 91 60.00 08/13/21 22:00 75 14 113/47 (69) 89 NIV Bilevel 60.00 08/13/21 21:00 69 23 128/60 (82) 95 NIV Bilevel 60.00 08/13/21 20:00 Vapotherm 30.00 65 08/13/21 20:00 72 18 130/63 (85) 91 NIV Bilevel 60.00 08/13/21 19:57 36.3 08/13/21 19:00 74 26 103/57 (72) 92 NIV Bilevel 60.00 08/13/21 19:00 74 08/13/21 18:02 93 Vapotherm 30.00 85 08/13/21 18:00 74 10 132/67 (88) 93 Vapotherm 85.00 30.00 08/13/21 17:00 70 29 123/52 (75) 89 Vapotherm 85.00 30.00 08/13/21 16:00 36.2 08/13/21 16:00 71 127/60 (82) 92 Vapotherm 85.00 30.00 08/13/21 15:42 Vapotherm 85.00 30.00 08/13/21 15:41 Vapotherm 30.00 65 I & O 08/14/21 07:00 Intake Total 1800 ml Output Total 4300 ml Balance -2500 ml Height & Weight Height: 5'5.00" Weight: 380lbs. 0.0oz. 172.236691hq; 71.42 BMI Method: General Appearance: No Apparent Distress, WD/WN, Chronically ill, Obese HEENT: PERRL/EOMI, Moist Mucous Membranes Neck: Full Range of Motion, Normal Inspection Respiratory: Normal Breath Sounds, No Accessory Muscle Use Cardiovascular: Regular Rate, Rhythm Capillary Refill: Less Than 3 Seconds Extremity: Normal Range of Motion, No Calf Tenderness Neurologic/Psychiatric: Alert, Oriented x3 Skin: Warm/Dry Lymphatic: No Adenopathy Results Lab Laboratory Tests 08/13/21 03:30 08/14/21 04:00 Assessment/Plan Assessment/Plan ` JOSSIE RUBI MD August 14, 2021 15:40
[2021-08-14] MEDS: lisINopril 5 MG (PRINIVIL) TABLET PO SCH (20:11)
[2021-08-14] MEDS: MELATONIN 3 MG TABLET PO PRN (21:58)
[2021-08-14] MEDS: guaiFENesin/DM (ROBITUSSIN DM) 10 ML UDC PO PRN (22:00)
[2021-08-15] VITALS (26 sets, daily range): BP systolic 98–145; BP diastolic 44–85
[2021-08-15] MEDS: ALPRAZolam 0.5 MG (XANAX) TAB PO SCH ×8 (00:06→22:38)
[2021-08-15] MEDS: RT-ALBUTEROL/IPRATROPIUM 3 ML (DUONEB) VIAL INH SCH ×6 (02:40→21:04)
[2021-08-15 05:25] LABS: BASOPHILS % (AUTO) 0 % (0-10); EOSINOPHILS # (AUTO) 0.2 10^3/uL (0.0-0.3); EOSINOPHILS % (AUTO) 2 % (0-10); HEMATOCRIT 33 % (35-52); HEMOGLOBIN 9.5 g/dL (11.5-16.0); LYMPHOCYTES # (AUTO) 1.7 10^3/uL (1.0-4.0); LYMPHOCYTES % (AUTO) 13 % (12-44); MEAN CORPUSCULAR HEMOGLOBIN 26 pg (25-34); MEAN CORPUSCULAR HGB CONC 29 g/dL (32-36); MEAN CORPUSCULAR VOLUME 88 fL (80-99); MEAN PLATELET VOLUME 9.5 fL (9.0-12.2); MONOCYTES # (AUTO) 0.8 10^3/uL (0.0-1.0); MONOCYTES % (AUTO) 6 % (0-12); NEUTROPHILS # (AUTO) 10.3 10^3/uL (1.8-7.8); NEUTROPHILS % (AUTO) 79 % (42-75); PLATELET COUNT 410 10^3/uL (130-400); WHITE BLOOD COUNT 13.2 10^3/uL (4.3-11.0)
[2021-08-15 05:57] LABS: POTASSIUM 4.5 MMOL/L (3.6-5.0)
[2021-08-15 05:59] LABS: TOTAL PROTEIN 7.1 GM/DL (6.4-8.2)
[2021-08-15 06:01] LABS: BILIRUBIN,TOTAL 0.6 MG/DL (0.1-1.0)
[2021-08-15 06:03] LABS: CREATININE SERUM 1.04 MG/DL (0.60-1.30)
[2021-08-15] MEDS: POTASSIUM CL 10MEQ/50ML IVPB 50 ML IV SCH (06:03)
[2021-08-15] MEDS: MAGNESIUM 1 GM/100 ML IVPB 100 ML IV SCH (06:04)
[2021-08-15] MEDS: KCL 20 MEQ TAB (K-DUR) PO SCH (06:04)
[2021-08-15 06:06] LABS: MAGNESIUM 1.9 MG/DL (1.6-2.4)
[2021-08-15] MEDS: MULTIVIT W/MINERALS TAB (THERAGRAN M) PO SCH (06:40)
[2021-08-15] MEDS: GABAPENTIN 600 MG (NEURONTIN) TAB PO SCH ×3 (06:40→22:38)
[2021-08-15] MEDS: FUROSEMIDE 40 MG/4 ML INJ (LASIX) IVP SCH ×2 (06:40→16:41)
[2021-08-15] MEDS: inSUlin ASPART (NovoLOG) 1 UNIT/0.01 ML (CHARGE PER UNIT) SC SCH ×7 (06:41→20:13)
[2021-08-15] MEDS: amLODIPine 5 MG (NORVASC) TAB PO SCH (08:06)
[2021-08-15] MEDS: SENNOSIDES 8.6 MG (SENOKOT) TAB PO SCH ×2 (08:06→20:14)
[2021-08-15] MEDS: FOLIC ACID 1 MG TAB PO SCH (08:06)
[2021-08-15] MEDS: DOCUSATE SODIUM 100 MG (COLACE) CAP PO SCH ×2 (08:06→20:14)
[2021-08-15] MEDS: PANTOPRAZOLE 20 MG TABLET (PROTONIX) PO SCH ×2 (08:06→20:14)
[2021-08-15] MEDS: MICONAZOLE 2% POWDER (DESENEX AF) 90 GM TOP SCH ×2 (08:06→20:14)
--- NOTE | 2021-08-15 09:51 | Tele-ICU Progress Note ---
Subjective Date Seen by a Provider: August 15, 2021 Time Seen by a Provider: 09:46 Subjective/Events-last exam Doing better, no c/o, currently on vapotherm 40l 100%, Very dependent on oxygen desaturates quickly if taken off. BiPAP at night 20/10 FiO2 85% Off abx, was in a fib, now in sinus Has right IJ, day 7, site looks ok, Getting close to going to LTAC, pt is bed bound due to obesity, has severe DJD Sepsis Event Evaluation Height, Weight, BMI Height: 5'5.00" Weight: 380lbs. 0.0oz. 172.901840rd; 71.42 BMI Method: Exam Exam Patient acknowledged, consented, and participated in this virtual visit which was conducted using real time audio/video Vital Signs Date Time Temp Pulse Resp B/P (MAP) Pulse Ox O2 Delivery O2 Flow Rate FiO2 08/15/21 08:00 Vapotherm 40.00 100 08/15/21 07:41 36.5 08/15/21 07:13 Vapotherm 100.00 40.00 08/15/21 07:00 67 08/15/21 06:48 94 Vapotherm 40.00 100 08/15/21 06:00 62 21 108/49 (68) 96 NIV Bilevel 85.00 08/15/21 05:00 57 18 114/52 (72) 97 NIV Bilevel 85.00 08/15/21 04:00 59 20 101/46 (64) 95 NIV Bilevel 85.00 08/15/21 03:59 NIV Bilevel 85 08/15/21 03:00 61 22 108/47 (67) 95 NIV Bilevel 85.00 08/15/21 02:40 61 21 94 85.00 08/15/21 02:00 64 21 112/52 (72) 95 NIV Bilevel 85.00 08/15/21 01:00 65 18 107/51 (69) 94 NIV Bilevel 85.00 08/15/21 01:00 70 08/15/21 00:00 NIV Bilevel 85 08/15/21 00:00 66 24 98/44 (62) 94 NIV Bilevel 85.00 08/14/21 23:39 35.9 08/14/21 23:00 NIV Bilevel 85.00 08/14/21 23:00 69 26 108/49 (68) 93 Vapotherm 100.00 40.00 08/14/21 22:42 79 28 92 85.00 08/14/21 22:00 75 27 128/50 (76) 89 Vapotherm 100.00 40.00 08/14/21 21:00 72 33 138/60 (86) 89 Vapotherm 100.00 40.00 08/14/21 20:00 68 23 111/48 (69) 94 Vapotherm 100.00 40.00 08/14/21 20:00 Vapotherm 40.00 100 08/14/21 20:00 Vapotherm 100.00 40.00 08/14/21 19:00 80 08/14/21 19:00 73 34 140/53 (82) 90 Vapotherm 100.00 40.00 08/14/21 18:30 93 Vapotherm 40.00 100 08/14/21 18:00 69 112/51 (71) 89 Vapotherm 100.00 40.00 08/14/21 17:00 65 22 119/59 (79) 92 Vapotherm 100.00 40.00 08/14/21 16:08 Vapotherm 30.00 85 08/14/21 16:00 71 25 126/56 (79) 91 Vapotherm 80.00 25.00 08/14/21 15:57 36.7 08/14/21 15:00 65 26 115/53 (73) 90 Vapotherm 80.00 25.00 08/14/21 14:23 95 Vapotherm 30.00 85 08/14/21 14:00 62 21 129/61 (83) 93 Vapotherm 80.00 25.00 08/14/21 13:00 61 22 113/55 (74) 92 NIV Bilevel 60.00 08/14/21 13:00 61 08/14/21 12:00 65 39 119/52 (74) 93 NIV Bilevel 60.00 08/14/21 12:00 Vapotherm 30.00 85 08/14/21 11:49 36.3 08/14/21 11:00 70 20 95/48 (64) 90 NIV Bilevel 60.00 08/14/21 10:24 92 Vapotherm 30.00 85 08/14/21 10:00 71 16 110/49 (69) 92 NIV Bilevel 60.00 I & O 08/15/21 07:00 Intake Total 1450 ml Output Total 2820 ml Balance -1370 ml Height & Weight Height: 5'5.00" Weight: 380lbs. 0.0oz. 172.457994vm; 71.42 BMI Method: General Appearance: No Apparent Distress, WD/WN, Chronically ill, Mild Distress, Obese HEENT: PERRL/EOMI, Moist Mucous Membranes Neck: Full Range of Motion, Normal Inspection Respiratory: Normal Breath Sounds, No Accessory Muscle Use, Rhonci (not working hard to breathe), Wheezing Cardiovascular: Regular Rate, Rhythm Capillary Refill: Less Than 3 Seconds Extremity: Normal Range of Motion, No Calf Tenderness, Pedal Edema (+ 1 in both legs) Neurologic/Psychiatric: Alert, Oriented x3 Skin: Warm/Dry Lymphatic: No Adenopathy Results Lab Laboratory Tests 08/14/21 04:00 08/15/21 05:10 Assessment/Plan Assessment/Plan CHF, doing better but still very oxgyen and BIPAP dependent, will continue a fib-now in NSR morbid obesity-will need to go to LTAC off abx right IJ-will keep as difficult to start peripheral, site looks ok Critical Care: Critically Ill Patient Time spent with patient (mins): 20 ESTEFANY MILNER MD August 15, 2021 09:51
--- NOTE | 2021-08-15 10:34 | Cardiology Progress Note ---
Subjective Date Seen by Provider: August 15, 2021 Time Seen by Provider: 10:33 Subjective/Events-last exam Patient is laying down in bed, requiring a higher oxygen on Vapotherm. No new complaint Review of Systems General: No Chills, No Night Sweats; Fatigue; No Malaise, No Appetite, No Other HEENT: No Head Aches, No Visual Changes, No Eye Pain, No Ear Pain, No Dysphas ia, No Sinus Congestion, No Post Nasal Drip, No Sore Throat, No Other Pulmonary: Dyspnea; No Cough, No Pleuritic Chest Pain, No Other Cardiovascular: No: Chest Pain, Palpitations, Orthopnea, Paroxysmal Noc. Dyspnea, Edema, Lt Headedness, Other Objective-Cardiology Exam Last Set of Vital Signs Vital Signs 08/15/21 08/15/21 08/15/21 07:41 08:00 10:00 Temp 36.5 Pulse 73 Resp 26 B/P (MAP) 112/45 (67) Pulse Ox 92 O2 Delivery Vapotherm O2 Flow Rate 100.00 40.00 FiO2 100 I&O Intake and Output 08/14/21 23:59 Intake Total 1900 ml Output Total 3000 ml Balance -1100 ml Intake Oral 1900 ml Output Urine Total 3000 ml General: Alert, Cooperative, Moderate Distress HEENT: Atraumatic, PERRLA Neck: Supple, No JVD Lungs: Other (decreased breath sounds. ) Heart: Regular Rate, Normal S1, Normal S2, No Murmurs Abdomen: Normal Bowel Sounds Extremities: No Clubbing Neuro: Normal Speech Psych/Mental Status: Mental Status NL, Mood NL Results Lab Laboratory Tests 08/15/21 05:10 A/P-Cardiology Admission Diagnosis Urosepsis CAD PAF HTN Assessment/Plan Status post acute respiratory failure, history of chronic respiratory insufficiency due to chronic CO2 retention and morbid obesity Using BiPAP at night and Vapotherm during the day. Awaiting [place] Tolerating Lasix well. Urosepsis, management per medical services Coronary artery disease with history of stents x2 to the RCA,3.512 mm vision stent in 2009. 3.012 mm vision stent in 2010 with most recent cardiac catheterization in November 2015 revealing patent stents to the RCA with otherwise nonobstructive disease. 2D Echo done 08/05/21 showing EF 60-65%, PA 20-25mmHg. Technically difficult study. Paroxysmal atrial fibrillation, diagnosed April 2019, was hospitalized for A. fib with RVR with tachybradycardia episodes, converted to sinus rhythm, currently in sinus rhythm History of GI bleed on 04/27/2020 requiring blood transfusion. EGD done during hospitalization showing gastritis.Was hospitalized at in 2020 for possible ch olangitis and found to have duodenal mass, biopsy unrevealing and repeat EGD did not show mass Hypertension, was hypotension on admission, blood pressure now improved, continue to monitor. Hyperlipidemia, monitor lipids Diabetes mellitus-managed by primary care physician, continue to monitor Severe obesity, BMI 74 was referred for possible weight loss surgery in the past, however patient has decided against surgery at this time. Bilateral lower extremity pain and swelling-discussed weight loss. Mild bilateral nonobstructive carotid artery stenosis, most recent carotid duplex done in November 2018, continue to monitor. Hypothyroidism, continue to monitor thyroid function test. Obstructive sleep apnea BELLE VERA MD August 15, 2021 10:34
--- NOTE | 2021-08-15 11:30 | Progress Note - Hospitalist ---
Subjective HPI/CC On Admission Date Seen by Provider: August 15, 2021 Time Seen by Provider: 11:26 Pt doing about the same Maintained on BiPAP Chronic right hip and knee pain She does have pain medication ordered ABG will be ordered She appears to be BIPAP dependent Overall, very poor prognosis Subjective/Events-last exam Patient was eating on Vapotherm considering this and talking she maintained sat urations 94 to 95% voicing no complaints. She was pleasant and appreciative of the care that she had received. She has a cough that is been productive of a small amount of clear sputum only denies night sweats chills fever chest pain or dyspnea at rest. Currently she appears to be doing a bit better off of BiPAP than yesterday. Objective Exam Vital Signs Vital Signs Date Time Temp Pulse Resp B/P (MAP) Pulse Ox O2 Delivery O2 Flow Rate FiO2 08/15/21 11:24 36.1 08/15/21 10:44 92 Vapotherm 40.00 100 08/15/21 10:00 73 26 112/45 (67) Capillary Refill : Less Than 3 Seconds General Appearance: No Apparent Distress, Obese Respiratory: No Accessory Muscle Use, No Respiratory Distress, Other (Mild inspiratory and expiratory wheezing with good air movement no rales or rhonchi appreciated. Diminished breath sounds in the bases.) Cardiovascular: No Gallop, No Murmur, Irregularly Irregular Extremity: Other ( Extremities warm trace edema noted there is crinkling of the skin below the level of the tibia around the ankles suggesting the patient had previously had much more significant Edema.) Results/Procedures Lab Laboratory Tests 08/15/21 05:10 Patient resulted labs reviewed. Assessment/Plan Assessment and Plan Assess & Plan/Chief Complaint SepsisResolved patient currently off antibiotics. Waiting on insurance from an LTAC facility if this is approved we will plan transfer. UTI Super morbid obesity BMI 73 Acute on chronic respiratory failure Obesity hypoventilation syndrome CO2 retention requiring BiPAP Hypertension Hyperlipidemia Diabetes Paroxysmal atrial fibrillation Anticoagulation contraindicated due to life-threatening bleed in the past Hypothyroidism Right hip pain Critical Care Critically Ill Patient OMAR HURTADO MD August 15, 2021 11:30
[2021-08-15] MEDS: ENOXAPARIN 60 MG/0.6 ML (LOVENOX) SYR SC SCH ×2 (12:02→22:39)
[2021-08-15] MEDS: lisINopril 5 MG (PRINIVIL) TABLET PO SCH (20:14)
[2021-08-16] VITALS (27 sets, daily range): BP systolic 87–151; BP diastolic 50–78
[2021-08-16] MEDS: RT-ALBUTEROL/IPRATROPIUM 3 ML (DUONEB) VIAL INH SCH ×6 (02:48→22:54)
[2021-08-16] MEDS: ALPRAZolam 0.5 MG (XANAX) TAB PO SCH ×6 (03:58→23:16)
[2021-08-16 04:52] LABS: BASOPHILS % (AUTO) 0 % (0-10); EOSINOPHILS # (AUTO) 0.2 10^3/uL (0.0-0.3); EOSINOPHILS % (AUTO) 1 % (0-10); HEMATOCRIT 33 % (35-52); HEMOGLOBIN 9.5 g/dL (11.5-16.0); LYMPHOCYTES # (AUTO) 1.8 10^3/uL (1.0-4.0); LYMPHOCYTES % (AUTO) 14 % (12-44); MEAN CORPUSCULAR HEMOGLOBIN 26 pg (25-34); MEAN CORPUSCULAR HGB CONC 29 g/dL (32-36); MEAN CORPUSCULAR VOLUME 88 fL (80-99); MEAN PLATELET VOLUME 9.4 fL (9.0-12.2); MONOCYTES # (AUTO) 0.8 10^3/uL (0.0-1.0); MONOCYTES % (AUTO) 6 % (0-12); NEUTROPHILS # (AUTO) 10.1 10^3/uL (1.8-7.8); NEUTROPHILS % (AUTO) 77 % (42-75); PLATELET COUNT 422 10^3/uL (130-400); WHITE BLOOD COUNT 13.1 10^3/uL (4.3-11.0)
[2021-08-16 05:09] LABS: POTASSIUM 4.3 MMOL/L (3.6-5.0)
[2021-08-16 05:11] LABS: TOTAL PROTEIN 7.3 GM/DL (6.4-8.2)
[2021-08-16 05:13] LABS: BILIRUBIN,TOTAL 0.5 MG/DL (0.1-1.0)
[2021-08-16 05:15] LABS: CREATININE SERUM 0.98 MG/DL (0.60-1.30); PHOSPHORUS 3.7 MG/DL (2.3-4.7)
[2021-08-16 05:18] LABS: MAGNESIUM 1.8 MG/DL (1.6-2.4)
[2021-08-16] MEDS: POTASSIUM CL 10MEQ/50ML IVPB 50 ML IV SCH (05:37)
[2021-08-16] MEDS: KCL 20 MEQ TAB (K-DUR) PO SCH (05:37)
[2021-08-16] MEDS: MAGNESIUM 1 GM/100 ML IVPB 100 ML IV SCH (05:37)
[2021-08-16] MEDS: inSUlin ASPART (NovoLOG) 1 UNIT/0.01 ML (CHARGE PER UNIT) SC SCH ×7 (06:16→20:18)
[2021-08-16] MEDS: MULTIVIT W/MINERALS TAB (THERAGRAN M) PO SCH (06:16)
[2021-08-16] MEDS: LEVOTHYROXINE 100 MCG (LEVOTHROID) TAB PO SCH (06:17)
[2021-08-16] MEDS: GABAPENTIN 600 MG (NEURONTIN) TAB PO SCH ×3 (06:17→23:17)
[2021-08-16] MEDS: FUROSEMIDE 40 MG/4 ML INJ (LASIX) IVP SCH (06:17)
[2021-08-16] MEDS: LEVOTHYROXINE 75 MCG (LEVOTHROID) TABLET PO SCH (06:17)
[2021-08-16] MEDS: FUROSEMIDE 40 MG (LASIX) TAB PO SCH ×2 (06:51→17:02)
[2021-08-16] MEDS: DOCUSATE SODIUM 100 MG (COLACE) CAP PO SCH ×2 (08:43→20:17)
[2021-08-16] MEDS: SENNOSIDES 8.6 MG (SENOKOT) TAB PO SCH ×2 (08:43→20:17)
[2021-08-16] MEDS: FOLIC ACID 1 MG TAB PO SCH (08:43)
[2021-08-16] MEDS: amLODIPine 5 MG (NORVASC) TAB PO SCH (08:43)
[2021-08-16] MEDS: MICONAZOLE 2% POWDER (DESENEX AF) 90 GM TOP SCH ×2 (08:43→20:25)
[2021-08-16] MEDS: PANTOPRAZOLE 20 MG TABLET (PROTONIX) PO SCH ×2 (08:43→20:17)
--- NOTE | 2021-08-16 09:04 | Tele-ICU Progress Note ---
Subjective Date Seen by a Provider: August 16, 2021 Time Seen by a Provider: 06:50 Subjective/Events-last exam This virtual visit was conducted using real time audio/video. Thank you for asking us to see this patient for respiratory insufficiency due to CHF. Also urosepsis, afib which converted. Recent events: PE: No distress, morbidly obese. VSS. O2 sat 95% on vapotherm 40 LPM. HEENT: No obvious masses, adenopathy or JVD. Chest: clear to auscultation. Diminished. CV: RRR S1 S2 No murmur or added sounds. Abd: Non-tender. Bowel sounds Y. : Unremarkable. Mack Y. POWER WASHER/psychiatric: Grossly intact. No obvious focal findings. Extremities: 1+ edema. Capillary refill < 3 seconds. Skin: unremarkable. Results: ElevatedWCC 13.1, BUN 27, BG 250. Decreased Hb 9.5. Available chart/ vitals / labs / images reviewed. Video assessment done using teleICU camera, rest of exam as per RN. A/P: Respiratory insufficiency: Continue present management with BiPAP/VT, duonebs Monitor for increasing oxygenation needs and/or need for intubation. Critical Care: critically ill patient. Cont. abx,iftikhar., SSI, Lasix, statin, lisinopril, PPI, tradjenta and Levemir. Discussed with RN AIDA. Asked RN to reach out to eICU if any questions or concerns later. Time spent with patient/coordination of care with other health professionals (mins): 25 Sepsis Event Evaluation Height, Weight, BMI Height: 5'5.00" Weight: 380lbs. 0.0oz. [id number]; 71.42 BMI Method: Exam Exam Patient acknowledged, consented, and participated in this virtual visit which was conducted using real time audio/video Vital Signs Date Time Temp Pulse Resp B/P (MAP) Pulse Ox O2 Delivery O2 Flow Rate FiO2 08/16/21 08:00 84 34 150/72 (98) 96 Vapotherm 100.00 40.00 08/16/21 08:00 37.1 08/16/21 07:00 73 40 135/66 (89) 89 Vapotherm 100.00 40.00 08/16/21 07:00 74 08/16/21 06:55 90 Vapotherm 40.00 100 08/16/21 06:29 Vapotherm 100.00 40.00 08/16/21 06:00 64 18 110/53 (72) 93 NIV Bilevel 65.00 08/16/21 05:00 67 21 118/53 (74) 93 NIV Bilevel 65.00 08/16/21 04:00 NIV Bilevel 65 08/16/21 04:00 36.6 08/16/21 04:00 65 24 111/51 (71) 94 NIV Bilevel 65.00 08/16/21 03:00 65 23 109/53 (71) 93 NIV Bilevel 75.00 08/16/21 03:00 NIV Bilevel 65.00 08/16/21 02:48 64 22 93 65.00 08/16/21 02:00 67 27 128/62 (84) 95 NIV Bilevel 75.00 08/16/21 01:07 NIV Bilevel 75.00 08/16/21 01:00 66 08/16/21 01:00 65 24 103/50 (67) 96 NIV Bilevel 85.00 08/16/21 00:00 71 22 125/57 (79) 96 NIV Bilevel 85.00 08/16/21 00:00 NIV Bilevel 75 08/15/21 23:00 70 23 117/54 (75) 97 NIV Bilevel 85.00 08/15/21 22:00 71 21 131/57 (81) 96 NIV Bilevel 85.00 08/15/21 21:00 74 25 94 75.00 08/15/21 21:00 73 24 122/58 (79) 95 NIV Bilevel 85.00 08/15/21 20:52 NIV Bilevel 85.00 08/15/21 20:40 75 28 94 85.00 08/15/21 20:29 36.5 08/15/21 20:00 Vapotherm 40.00 100 08/15/21 20:00 77 28 134/61 (85) 93 Vapotherm 100.00 40.00 08/15/21 19:00 75 24 111/51 (71) 93 Vapotherm 100.00 40.00 08/15/21 19:00 80 08/15/21 18:30 95 Vapotherm 40.00 100 08/15/21 18:00 79 20 129/47 (74) 93 Vapotherm 100.00 40.00 08/15/21 17:00 75 7 142/67 (92) 92 Vapotherm 100.00 40.00 08/15/21 16:00 Vapotherm 40.00 100 08/15/21 16:00 74 18 121/53 (75) 95 Vapotherm 100.00 40.00 08/15/21 15:00 73 17 134/52 (79) 95 Vapotherm 100.00 40.00 08/15/21 14:57 93 Vapotherm 40.00 100 08/15/21 14:55 Vapotherm 100.00 40.00 08/15/21 14:00 68 14 117/52 (73) 97 NIV Bilevel 85.00 08/15/21 13:00 71 08/15/21 13:00 71 9 145/66 (92) 97 Vapotherm 100.00 40.00 08/15/21 12:30 Vapotherm 40.00 100 08/15/21 12:00 73 12 135/58 (83) 92 Vapotherm 100.00 40.00 08/15/21 11:24 36.1 08/15/21 11:00 68 23 113/54 (73) 95 Vapotherm 100.00 40.00 08/15/21 10:44 92 Vapotherm 40.00 100 08/15/21 10:00 73 26 112/45 (67) 92 Vapotherm 100.00 40.00 08/15/21 09:00 64 29 132/85 (101) 96 Vapotherm 100.00 40.00 I & O 08/16/21 07:00 Intake Total 1980 ml Output Total 3125 ml Balance -1145 ml Height & Weight Height: 5'5.00" Weight: 380lbs. 0.0oz. [id number]; 71.42 BMI Method: General Appearance: No Apparent Distress, Obese HEENT: PERRL/EOMI, Moist Mucous Membranes Neck: Full Range of Motion, Normal Inspection Respiratory: No Accessory Muscle Use, No Respiratory Distress, Other (Mild inspiratory and expiratory wheezing with good air movement no rales or rhonchi appreciated. Diminished breath sounds in the bases.) Cardiovascular: No Gallop, No Murmur, Irregularly Irregular Capillary Refill: Less Than 3 Seconds Extremity: Other ( Extremities warm trace edema noted there is crinkling of the skin below the level of the tibia around the ankles suggesting the patient had previously had much more significant Edema.) Neurologic/Psychiatric: Alert, Oriented x3 Skin: Warm/Dry Lymphatic: No Adenopathy Results Lab Laboratory Tests 08/15/21 05:10 08/16/21 04:40 Assessment/Plan Assessment/Plan See free text. Critical Care: Critically Ill Patient JAKE HUNTER MD August 16, 2021 09:04
--- NOTE | 2021-08-16 09:06 | Cardiology Progress Note ---
Subjective Date Seen by Provider: August 16, 2021 Time Seen by Provider: 09:01 Subjective/Events-last exam Patient was seen at bedside. Complaining of pain at the Mack catheter site. Burning sensation. Still on Vapotherm 100% Review of Systems General: No Chills, No Night Sweats; Fatigue, Malaise; No Appetite, No Other HEENT: No Head Aches, No Visual Changes, No Eye Pain, No Ear Pain, No Dysphasia, No Sinus Congestion, No Post Nasal Drip, No Sore Throat, No Other Pulmonary: Dyspnea; No Cough, No Pleuritic Chest Pain, No Other Cardiovascular: No: Chest Pain, Palpitations, Orthopnea, Paroxysmal Noc. Dyspnea, Edema, Lt Headedness, Other Objective-Cardiology Exam Last Set of Vital Signs Vital Signs 08/16/21 08/16/21 06:55 08:00 Temp 37.1 Pulse 84 Resp 34 B/P (MAP) 150/72 (98) Pulse Ox 96 O2 Delivery Vapotherm O2 Flow Rate 100.00 40.00 FiO2 100 I&O Intake and Output 08/16/21 00:00 Intake Total 2130 ml Output Total 3120 ml Balance -990 ml Intake Oral 2130 ml Output Urine Total 3120 ml General: Alert, Cooperative, Moderate Distress HEENT: Atraumatic, PERRLA Neck: Supple, No JVD Lungs: Other (decreased breath sounds. ) Heart: Regular Rate, Normal S1, Normal S2, No Murmurs Abdomen: Normal Bowel Sounds Extremities: No Clubbing Neuro: Normal Speech Psych/Mental Status: Mental Status NL, Mood NL Results Lab Laboratory Tests 08/16/21 04:40 A/P-Cardiology Admission Diagnosis Urosepsis CAD PAF HTN Assessment/Plan Status post acute respiratory failure, history of chronic respiratory insufficiency due to chronic CO2 retention and morbid obesity Using BiPAP at night and Vapotherm during the day. Awaiting [place] Tolerating Lasix well. I am changing Lasix to oral. Elevated BUN level Urosepsis, burning sensation and pain at the Mack catheter site. Management per medical services Coronary artery disease with history of stents x2 to the RCA,3.512 mm vision stent in 2009. 3.012 mm vision stent in 2010 with most recent cardiac catheterization in November 2015 revealing patent stents to the RCA with otherwise nonobstructive disease. 2D Echo done 08/05/21 showing EF 60-65%, PA 20-25mmHg. Technically difficult study. Paroxysmal atrial fibrillation, diagnosed April 2019, was hospitalized for A. fib with RVR with tachybradycardia episodes, converted to sinus rhythm, currently in sinus rhythm History of GI bleed on 04/27/2020 requiring blood transfusion. 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 Hyperlipidemia, monitor lipids Diabetes mellitus-managed by primary care physician, continue to monitor Severe obesity, BMI 74 was referred for possible weight loss surgery in the past, however patient has decided against surgery at this time. Bilateral lower extremity pain and swelling-discussed weight loss. Mild bilateral nonobstructive carotid artery stenosis, most recent carotid duplex done in November 2018, continue to monitor. Hypothyroidism, continue to monitor thyroid function test. Obstructive sleep apnea BELLE VERA MD August 16, 2021 09:06
--- NOTE | 2021-08-16 11:37 | Progress Note - Hospitalist ---
Subjective HPI/CC On Admission Date Seen by Provider: August 16, 2021 Time Seen by Provider: 07:15 Pt doing about the same Maintained on BiPAP Chronic right hip and knee pain She does have pain medication ordered ABG will be ordered She appears to be BIPAP dependent Overall, very poor prognosis Subjective/Events-last exam Patient developed severe lower abdominal pain was found to have a kinked Mack with secondary obstruction alleviated immediately by repositioning with over 400 cc of urine output and resolution of symptoms. She has done well otherwise and currently reports no pelvic or abdominal pain. Objective Exam Vital Signs Vital Signs Date Time Temp Pulse Resp B/P (MAP) Pulse Ox O2 Delivery O2 Flow Rate FiO2 08/16/21 10:32 96 Vapotherm 40.00 100 08/16/21 10:00 77 19 87/61 (70) 08/16/21 08:00 37.1 Capillary Refill : Less Than 3 Seconds General Appearance: No Apparent Distress, Obese Respiratory: Lungs Clear (Anteriorly), No Accessory Muscle Use, No Respiratory Distress Cardiovascular: Regular Rate, Rhythm, No Gallop, No Murmur Gastrointestinal: Non Tender Results/Procedures Lab Laboratory Tests 08/16/21 04:40 Patient resulted labs reviewed. Assessment/Plan Assessment and Plan Assess & Plan/Chief Complaint SepsisResolved patient currently off antibiotics. Waiting on insurance Coverage issues if this is approved she has been accepted at [facility] [facility]. UTI Super morbid obesity BMI 73 Acute on chronic respiratory failure Obesity hypoventilation syndrome CO2 retention requiring BiPAP Hypertension Hyperlipidemia Diabetes Paroxysmal atrial fibrillation Anticoagulation contraindicated due to life-threatening bleed in the past Hypothyroidism Right hip pain Critical Care Critically Ill Patient OMAR HURTADO MD August 16, 2021 11:37
[2021-08-16] MEDS: ENOXAPARIN 60 MG/0.6 ML (LOVENOX) SYR SC SCH ×2 (11:55→23:17)
[2021-08-16] MEDS: lisINopril 5 MG (PRINIVIL) TABLET PO SCH (20:17)
[2021-08-17] VITALS (46 sets, daily range): BP systolic 89–136; BP diastolic 40–68
[2021-08-17] MEDS: RT-ALBUTEROL/IPRATROPIUM 3 ML (DUONEB) VIAL INH SCH ×6 (02:34→22:12)
[2021-08-17 04:15] LABS: BASOPHILS % (AUTO) 0 % (0-10); EOSINOPHILS # (AUTO) 0.1 10^3/uL (0.0-0.3); EOSINOPHILS % (AUTO) 1 % (0-10); HEMATOCRIT 31 % (35-52); HEMOGLOBIN 9.1 g/dL (11.5-16.0); LYMPHOCYTES # (AUTO) 1.7 10^3/uL (1.0-4.0); LYMPHOCYTES % (AUTO) 11 % (12-44); MEAN CORPUSCULAR HEMOGLOBIN 25 pg (25-34); MEAN CORPUSCULAR HGB CONC 29 g/dL (32-36); MEAN CORPUSCULAR VOLUME 87 fL (80-99); MEAN PLATELET VOLUME 9.5 fL (9.0-12.2); MONOCYTES % (AUTO) 6 % (0-12); NEUTROPHILS # (AUTO) 12.4 10^3/uL (1.8-7.8); NEUTROPHILS % (AUTO) 80 % (42-75); PLATELET COUNT 410 10^3/uL (130-400); WHITE BLOOD COUNT 15.5 10^3/uL (4.3-11.0)
[2021-08-17] MEDS: ALPRAZolam 0.5 MG (XANAX) TAB PO SCH ×5 (04:19→20:40)
[2021-08-17 04:30] LABS: ALBUMIN 2.9 GM/DL (3.2-4.5); BILIRUBIN,TOTAL 0.6 MG/DL (0.1-1.0); CALCIUM 8.7 MG/DL (8.5-10.1); CREATININE SERUM 1.22 MG/DL (0.60-1.30); MAGNESIUM 1.8 MG/DL (1.6-2.4); PHOSPHORUS 3.1 MG/DL (2.3-4.7); POTASSIUM 4.3 MMOL/L (3.6-5.0)
[2021-08-17 04:43] LABS: BAND NEUTROPHILS 4 %; EOSINOPHILS % (MANUAL) 1 %; LYMPHOCYTES % (MANUAL) 7 %; MONOCYTES % (MANUAL) 4 %; NEUTROPHILS % (MANUAL) 84 %
[2021-08-17 04:44] LABS: ANISOCYTOSIS SLIGHT; HYPOCHROMASIA SLIGHT; MICROCYTOSIS SLIGHT; POLYCHROMASIA SLIGHT
[2021-08-17] MEDS: KCL 20 MEQ TAB (K-DUR) PO SCH (04:51)
[2021-08-17] MEDS: MAGNESIUM 1 GM/100 ML IVPB 100 ML IV SCH (04:51)
[2021-08-17] MEDS: POTASSIUM CL 10MEQ/50ML IVPB 50 ML IV SCH (04:51)
[2021-08-17] MEDS ORDERED: NOREPINEPHRINE 8 MG/250 ML 250 ML IV ONE (05:52)
[2021-08-17] MEDS: LEVOTHYROXINE 75 MCG (LEVOTHROID) TABLET PO SCH (05:56)
[2021-08-17] MEDS: inSUlin ASPART (NovoLOG) 1 UNIT/0.01 ML (CHARGE PER UNIT) SC SCH ×7 (05:56→20:39)
[2021-08-17] MEDS: LEVOTHYROXINE 100 MCG (LEVOTHROID) TAB PO SCH (05:57)
[2021-08-17] MEDS: MULTIVIT W/MINERALS TAB (THERAGRAN M) PO SCH (05:57)
[2021-08-17] MEDS: DOCUSATE SODIUM 100 MG (COLACE) CAP PO SCH ×2 (08:51→19:40)
[2021-08-17] MEDS: amLODIPine 5 MG (NORVASC) TAB PO SCH (08:51)
[2021-08-17] MEDS: PANTOPRAZOLE 20 MG TABLET (PROTONIX) PO SCH ×2 (08:51→20:40)
[2021-08-17] MEDS: GABAPENTIN 600 MG (NEURONTIN) TAB PO SCH ×3 (08:51→16:16)
[2021-08-17] MEDS: FUROSEMIDE 40 MG (LASIX) TAB PO SCH ×2 (08:51→17:27)
[2021-08-17] MEDS: FOLIC ACID 1 MG TAB PO SCH (08:52)
[2021-08-17] MEDS: SENNOSIDES 8.6 MG (SENOKOT) TAB PO SCH ×2 (09:21→19:41)
[2021-08-17] MEDS: MICONAZOLE 2% POWDER (DESENEX AF) 90 GM TOP SCH ×2 (09:22→20:40)
--- NOTE | 2021-08-17 09:27 | Cardiology Progress Note ---
Subjective Date Seen by Provider: August 17, 2021 Time Seen by Provider: 09:26 Subjective/Events-last exam Patient was seen at bedside, laying down comfortably. Maintained on BiPAP. Review of Systems General: No Chills, No Night Sweats; Fatigue, Malaise; No Appetite, No Other HEENT: No Head Aches, No Visual Changes, No Eye Pain, No Ear Pain, No Dysphasia, No Sinus Congestion, No Post Nasal Drip, No Sore Throat, No Other Pulmonary: Dyspnea; No Cough, No Pleuritic Chest Pain, No Other Cardiovascular: No: Chest Pain, Palpitations, Orthopnea, Paroxysmal Noc. Dyspnea, Edema, Lt Headedness, Other Objective-Cardiology Exam Last Set of Vital Signs Vital Signs 08/17/21 08/17/21 08/17/21 03:03 04:00 06:00 Temp 36.3 B/P (MAP) 96/44 (61) O2 Delivery NIV Bilevel FiO2 75 I&O Intake and Output 08/17/21 00:00 Intake Total 1550 ml Output Total 2475 ml Balance -925 ml Intake Oral 1550 ml Output Urine Total 2475 ml General: Alert, Cooperative, Moderate Distress HEENT: Atraumatic, PERRLA Neck: Supple, No JVD Lungs: Other (decreased breath sounds. ) Heart: Regular Rate, Normal S1, Normal S2, No Murmurs Abdomen: Normal Bowel Sounds Extremities: No Clubbing Skin: No Rashes Neuro: Normal Speech Psych/Mental Status: Mental Status NL, Mood NL Results Lab Laboratory Tests 08/17/21 04:00 A/P-Cardiology Admission Diagnosis Urosepsis CAD PAF HTN Assessment/Plan Status post acute respiratory failure, history of chronic respiratory insufficiency due to chronic CO2 retention and morbid obesity Using BiPAP at night and Vapotherm during the day. Awaiting [place] Tolerating Lasix well. Continue to monitor Urosepsis, burning sensation and pain at the Mack catheter site. Management per medical services Coronary artery disease with history of stents x2 to the RCA,3.512 mm vision stent in 2009. 3.012 mm vision stent in 2010 with most recent cardiac catheterization in November 2015 revealing patent stents to the RCA with otherwise nonobstructive disease. 2D Echo done 08/05/21 showing EF 60-65%, PA 20-25mmHg. Technically difficult study. Paroxysmal atrial fibrillation, diagnosed April 2019, was hospitalized for A. fib with RVR with tachybradycardia episodes, converted to sinus rhythm, currently in sinus rhythm History of GI bleed on 04/27/2020 requiring blood transfusion. EGD done during hospitalization showing gastritis.Was hospitalized at in 2020 for possible cholangitis and found to have duodenal mass, biopsy unrevealing and repeat EGD d id not show mass Hypertension, was hypotension on admission, blood pressure now improved, continue to monitor. Hyperlipidemia, monitor lipids Diabetes mellitus-managed by primary care physician, continue to monitor Severe obesity, BMI 74 was referred for possible weight loss surgery in the past , however patient has decided against surgery at this time. Bilateral lower extremity pain and swelling-discussed weight loss. Mild bilateral nonobstructive carotid artery stenosis, most recent carotid duplex done in November 2018, continue to monitor. Hypothyroidism, continue to monitor thyroid function test. Obstructive sleep apnea BELLE VERA MD August 17, 2021 09:27
--- NOTE | 2021-08-17 09:41 | Tele-ICU Progress Note ---
Subjective Date Seen by a Provider: August 17, 2021 Time Seen by a Provider: 09:41 Subjective/Events-last exam Tele-ICU Physician , Progress Note ) Available chart/ vitals / labs / Images reviewed Video assessment done using teleICU camera, rest of exam as per RN Discussed with RN , EXAM PER RN Events overnight : Afebrile FiO2 - VT I/O = neg Drips: Pressors: , hemodynamically stable Consultants: cassie Hospital course: Pt is a 66 y/o female, direct admit from an outside hospital. Pt found to have Sepsis-UTI and resp failure, requiring Bipap therpy. Pt transafered for highte level of care with ICU capabilities. 08/04 - 20/ 50% , 500 rr 26 08/05 BIPAP 14/11 30 %rr 30 tv 400 (08/10) READMIT from floor for acute resp failure - BIPAP + lasix A/P Acute resp failure 08/04 NIPPV 14/11 50% , 500 rr 26- wenaed off --> trnsfered to med floor on high flow 02 10 L and nocturnal Bipap 40 % 08/10 - acute resp failure - BIPAP + lasix --> VT 45 % 70% 08/14 - BiPAP at night. Vapotherm 30 L 85 % during the day - cont doiresis LTAC planned 08/17 - BIPAP 75 % 14/01 rr 23 tv tv - will repeat cxr , pct and reassess UTI - cx ? - cefepime 08/05 - finishe d CAD, s/p stenting - cont to monitor - ECHO 2019 - EF 55% - RVSP 40, , PA 20-25mmHg H/o Afib- in sinus now - iftikhar 60 q12 ( proph -not on AC ( contraindicated with previous bleed as per chart DM II - ISS Anemia - stable ISABELA/ [facility] - will need to cont on nocturnal bgiap ( has CPAP at home and 3 L o2 Anxiety - Xanax and prn ativan Lines : R IJ 08/03 (Central Line Necessity Reviewed) Mack: + OG: Nutrition: po Analgesia: Anxiety/ delirium Xanax and prn ativan VTE Prophylaxis: - iftikhar 60 q12 Stress Ulcer Prophylaxis: PO Plans in collaboration with bedside consultants and IM MDs. Discussed with RN to reach out if any questions or concerns A total of 31 minutes of critical care time was devoted to this patient today, required to treat and/or prevent further deterioration of critical care condition ( as above Sepsis Event Evaluation Height, Weight, BMI Height: 5'5.00" Weight: 380lbs. 0.0oz. [id number]; 71.42 BMI Method: Exam Exam Patient acknowledged, consented, and participated in this virtual visit which was conducted using real time audio/video Vital Signs Date Time Temp Pulse Resp B/P (MAP) Pulse Ox O2 Delivery O2 Flow Rate FiO2 08/17/21 09:00 67 10 114/63 (80) 94 NIV Bilevel 75.00 08/17/21 08:00 65 23 92/41 (58) 90 NIV Bilevel 75.00 08/17/21 07:00 68 14 97/47 (64) 91 NIV Bilevel 75.00 08/17/21 07:00 69 22 91 75.00 08/17/21 07:00 67 08/17/21 06:00 66 25 96/44 (61) 94 NIV Bilevel 75.00 08/17/21 05:30 66 25 89/40 (56) 95 NIV Bilevel 75.00 08/17/21 04:13 71 21 95/43 (58) 94 NIV Bilevel 75.00 08/17/21 04:00 NIV Bilevel 75 08/17/21 03:47 NIV Bilevel 75.00 08/17/21 03:03 36.3 83 92 08/17/21 03:00 84 20 121/44 (68) 92 NIV Bilevel 55.00 08/17/21 02:34 83 29 92 55.00 08/17/21 02:02 75 30 110/48 (66) 90 NIV Bilevel 55.00 08/17/21 01:00 72 08/17/21 01:00 72 25 106/43 (60) 90 NIV Bilevel 55.00 08/17/21 00:00 36.6 08/17/21 00:00 77 31 110/45 (66) 93 NIV Bilevel 55.00 08/17/21 00:00 NIV Bilevel 55 08/16/21 23:30 NIV Bilevel 55.00 08/16/21 23:00 82 29 121/61 (81) 95 Vapotherm 70.00 40.00 08/16/21 22:54 82 31 93 55.00 08/16/21 22:00 85 28 139/72 (94) Vapotherm 70.00 40.00 08/16/21 21:00 78 16 130/58 (83) 91 Vapotherm 70.00 40.00 08/16/21 20:00 80 28 151/78 (101) 93 Vapotherm 70.00 40.00 08/16/21 20:00 Vapotherm 40.00 70 08/16/21 19:50 36.2 79 28 135/63 (87) 94 Vapotherm 70.00 40.00 08/16/21 19:00 78 08/16/21 19:00 78 26 135/63 (87) 93 Vapotherm 70.00 40.00 08/16/21 18:39 95 Vapotherm 40.00 80 08/16/21 18:00 77 18 129/75 (93) 94 Vapotherm 100.00 40.00 08/16/21 17:00 76 25 124/71 (88) 97 Vapotherm 100.00 40.00 08/16/21 16:16 36.6 08/16/21 16:00 Vapotherm 40.00 100 08/16/21 16:00 74 25 125/59 (81) 97 Vapotherm 100.00 40.00 08/16/21 15:00 80 8 126/55 (78) 95 Vapotherm 100.00 40.00 08/16/21 14:10 96 Vapotherm 40.00 100 08/16/21 14:00 79 35 107/64 (78) 96 Vapotherm 100.00 40.00 08/16/21 13:00 72 08/16/21 13:00 71 24 114/56 (75) 91 Vapotherm 100.00 40.00 08/16/21 12:00 78 27 122/59 (80) 96 Vapotherm 100.00 40.00 08/16/21 12:00 36.5 08/16/21 12:00 Vapotherm 40.00 100 08/16/21 11:00 79 23 115/50 (71) 98 Vapotherm 100.00 40.00 08/16/21 10:32 96 Vapotherm 40.00 100 08/16/21 10:00 77 19 87/61 (70) 91 Vapotherm 100.00 40.00 I & O 08/17/21 07:00 Intake Total 1600 ml Output Total 2300 ml Balance -700 ml Height & Weight Height: 5'5.00" Weight: 380lbs. 0.0oz. 172.532385vx; 71.42 BMI Method: General Appearance: No Apparent Distress, Obese HEENT: PERRL/EOMI, Moist Mucous Membranes Neck: Full Range of Motion, Normal Inspection Respiratory: Lungs Clear (Anteriorly), No Accessory Muscle Use, No Respiratory Distress Cardiovascular: Regular Rate, Rhythm, No Gallop, No Murmur Capillary Refill: Less Than 3 Seconds Extremity: Other ( Extremities warm trace edema noted there is crinkling of the skin below the level of the tibia around the ankles suggesting the patient had previously had much more significant Edema.) Neurologic/Psychiatric: Alert, Oriented x3 Skin: Warm/Dry Lymphatic: No Adenopathy Results Lab Laboratory Tests 08/16/21 04:40 08/17/21 04:00 Assessment/Plan Assessment/Plan 1 JOSSIE RUBI MD August 17, 2021 09:41
[2021-08-17 10:36] LABS: ABG BASE EXCESS 16.9 MMOL/L (-2.5-2.5); ABG OXYGEN SATURATION 95 % (94-100); ABG PCO2 64 MMHG (35-45); ABG PH 7.43 (7.37-7.43); ABG PO2 75 MMHG (79-93)
--- NOTE | 2021-08-17 10:39 | Diagnostic Imaging Report ---
Indication: Hypoxia. Time of Exam: 10:10 AM Correlation is made with prior chest from 08/10/2021. The heart is enlarged. There continue to be findings of congestive failure with perihilar and bibasilar infiltrates. No effusion or pneumothorax is identified. Impression: Continued findings of congestive failure. Dictated by: Dictated on workstation # [id number]
[2021-08-17 10:41] LABS: ABG TCO2 44.3 MMOL/L (21.0-31.0); ALLENS TEST YES-POS; INSPIRED O2 75%; PATIENT TEMP 36.8; VENTILATOR NO
[2021-08-17] MEDS: NOREPINEPHRINE 8 MG/250 ML 250 ML IV SCH ×3 (10:45→19:40)
[2021-08-17] MEDS ORDERED: PIPERACILLIN SODIUM/TAZOBACTAM 4.5 GM in NS (IVPB) 100 ML IV NR (12:30)
[2021-08-17] MEDS: ENOXAPARIN 60 MG/0.6 ML (LOVENOX) SYR SC SCH (13:32)
--- NOTE | 2021-08-17 14:52 | Progress Note ---
Subjective Subjective/Events-last exam Afebrile, has been having worsening hypoxia. States she is okay but frustrated that this is happening to her. Objective Exam Last Set of Vital Signs Vital Signs Date Time Temp Pulse Resp B/P (MAP) Pulse Ox O2 Delivery O2 Flow Rate FiO2 08/17/21 14:44 59 99/43 08/17/21 14:41 22 96 75.00 08/17/21 12:04 NIV Bilevel 75 08/17/21 03:03 36.3 Capillary Refill : Less Than 3 Seconds I&O Intake and Output 08/17/21 00:00 Intake Total 1550 ml Output Total 2475 ml Balance -925 ml Intake Oral 1550 ml Output Urine Total 2475 ml General: Alert Lungs: Normal Air Movement Heart: Regular Rate, No Murmurs Abdomen: Normal Bowel Sounds, Soft Psych/Mental Status: Mental Status NL Results/Procedures Lab Laboratory Tests 08/16/21 15:24: Glucometer 302H 08/16/21 20:06: Glucometer 248H 08/17/21 04:00: White Blood Count 15.5H, Red Blood Count 3.59L, Hemoglobin 9.1L, Hematocrit 31L, Mean Corpuscular Volume 87, Mean Corpuscular Hemoglobin 25, Mean Corpuscular Hemoglobin Concent 29L, Red Cell Distribution Width 16.7H, Platelet Count 410H, Mean Platelet Volume 9.5, Immature Granulocyte % (Auto) 1, Neutrophils (%) (Auto) 80H, Lymphocytes (%) (Auto) 11L, Monocytes (%) (Auto) 6, Eosinophils (%) (Auto) 1, Basophils (%) (Auto) 0, Neutrophils # (Auto) 12.4H, Lymphocytes # (Auto) 1.7, Monocytes # (Auto) 1.0, Eosinophils # (Auto) 0.1, Basophils # (Auto) 0.0, Immature Granulocyte # (Auto) 0.2H, Neutrophils % (Manual) 84, Lymphocytes % (Manual) 7, Monocytes % (Manual) 4, Eosinophils % (Manual) 1, Band Neutrophils 4, Polychromasia SLIGHT, Hypochromasia SLIGHT, Anisocytosis SLIGHT, Microcytosis SLIGHT, Sodium Level 136, Potassium Level 4.3, Chloride Level 87L, Carbon Dioxide Level 36H, Anion Gap 13, Blood Urea Nitrogen 28H, Creatinine 1.22, Estimat Glomerular Filtration Rate 49, BUN/Creatinine Ratio 23, Glucose Level 310H, Calcium Level 8.7, Corrected Calcium 9.6, Phosphorus Level 3.1, Magnesium Level 1.8, Total Bilirubin 0.6, Aspartate Amino Transf (AST/SGOT) 22, Alanine Aminotransferase (ALT/SGPT) 19, Alkaline Phosphatase 98, Total Protein 7.0, Albumin 2.9L 08/17/21 10:25: D-Dimer 1.84H, Blood Gas Puncture Site RT RAD, Blood Gas Patient Temperature 36.8, Arterial Blood pH 7.43, Arterial Blood Partial Pressure CO2 64H, Arterial Blood Partial Pressure O2 75L, Arterial Blood HCO3 42*H, Arterial Blood Total CO2 44.3*H, Arterial Blood Oxygen Saturation 95, Arterial Blood Base Excess 16.9H, Juve Test YES-POS, Blood Gas Ventilator Setting NO, Blood Gas Inspired Oxygen 75%, B-Type Natriuretic Peptide 36.8, Procalcitonin 0.22H 08/17/21 11:52: Glucometer 181H Microbiology 08/03/21 MRSA Screen - Final, Complete MRSA not isolated Assessment/Plan Assessment/Plan (1) Sepsis Status: Acute Assessment & Plan: Suspected to be secondary to UTI. LA normal on admit. Has had persistent respiratory failure however. (2) Acute and chronic respiratory failure Status: Acute Assessment & Plan: Had some initial improvement, but very slow progress, plan was to send to LTACH, however, she has now persistently worsening hypoxia with higher FiO2 need. CXR signs of pulmonary edema, she is on lasix BID. Echo with normal EF. Continue bipap, lasix and appreciate [facility] ICU recommendations. (3) Hypothyroidism Status: Chronic Assessment & Plan: Home levothyroxine (4) Thrombocytosis Status: Acute Assessment & Plan: Likely secondary to inflammation/sepsis. (5) Leukocytosis Status: Acute (6) Obesity hypoventilation syndrome Status: Chronic Assessment & Plan: CPAP at home prior to admit, now requiring bipap most of the time secondary to acute on chronic respiratory failure. (7) COPD (chronic obstructive pulmonary disease) Status: Chronic (8) Diabetes Status: Chronic Assessment & Plan: On scheduled and sliding scale insulin. Will hold linagliptan given no clear evidence of benefit with insulin and DPP4 inhibitor. Qualifiers: Qualified Codes: E11.69 - Type 2 diabetes mellitus with other specified complication; Z79.4 - detention (current) use of insulin (9) Coronary artery disease Status: Chronic Assessment & Plan: History of stenting. Cardiology consulted, appreciate recommendations. Qualifiers: (10) Chronic blood loss anemia Status: Chronic Assessment & Plan: After severe GI bleed in Mar 2020, remains stable but low. (11) Atrial fibrillation Status: Chronic Assessment & Plan: Cardiology consulted, appreciate recommendations. Cannot tolerate full anticoagulation due to history of severe GI bleed. (12) Urinary tract infection Status: Acute Assessment & Plan: s/p 7 doses of ceftriaxone. (13) Hyperlipidemia Status: Chronic (14) Obesities, morbid Status: Chronic (15) DVT prophylaxis Status: Acute Assessment & Plan: Enoxaparin ANA LUISA JOHNSON MD August 17, 2021 14:52
[2021-08-17] MEDS: PIPERACILLIN SODIUM/TAZOBACTAM 4.5 GM in NS (IVPB) 100 ML IV SCH (18:18)
[2021-08-17] MEDS: MELATONIN 3 MG TABLET PO PRN (20:40)
[2021-08-17] MEDS: lisINopril 5 MG (PRINIVIL) TABLET PO SCH (20:40)
[2021-08-18] VITALS (45 sets, daily range): BP systolic 82–151; BP diastolic 30–113
[2021-08-18] MEDS: RT-ALBUTEROL/IPRATROPIUM 3 ML (DUONEB) VIAL INH SCH ×6 (02:42→22:20)
[2021-08-18 04:06] LABS: BASOPHILS % (AUTO) 0 % (0-10); EOSINOPHILS # (AUTO) 0.3 10^3/uL (0.0-0.3); EOSINOPHILS % (AUTO) 2 % (0-10); HEMATOCRIT 32 % (35-52); HEMOGLOBIN 9.6 g/dL (11.5-16.0); LYMPHOCYTES # (AUTO) 1.5 10^3/uL (1.0-4.0); LYMPHOCYTES % (AUTO) 8 % (12-44); MEAN CORPUSCULAR HEMOGLOBIN 26 pg (25-34); MEAN CORPUSCULAR HGB CONC 30 g/dL (32-36); MEAN CORPUSCULAR VOLUME 88 fL (80-99); MEAN PLATELET VOLUME 9.3 fL (9.0-12.2); MONOCYTES # (AUTO) 0.9 10^3/uL (0.0-1.0); MONOCYTES % (AUTO) 5 % (0-12); NEUTROPHILS # (AUTO) 15.1 10^3/uL (1.8-7.8); NEUTROPHILS % (AUTO) 84 % (42-75); PLATELET COUNT 424 10^3/uL (130-400)
[2021-08-18 04:39] LABS: POTASSIUM 4.2 MMOL/L (3.6-5.0)
[2021-08-18 04:40] LABS: CALCIUM 8.9 MG/DL (8.5-10.1)
[2021-08-18 04:42] LABS: TOTAL PROTEIN 7.4 GM/DL (6.4-8.2)
[2021-08-18 04:43] LABS: BILIRUBIN,TOTAL 0.7 MG/DL (0.1-1.0)
[2021-08-18 04:45] LABS: CREATININE SERUM 1.02 MG/DL (0.60-1.30); PHOSPHORUS 3.7 MG/DL (2.3-4.7)
[2021-08-18 04:48] LABS: MAGNESIUM 1.8 MG/DL (1.6-2.4)
[2021-08-18] MEDS: ENOXAPARIN 60 MG/0.6 ML (LOVENOX) SYR SC SCH ×3 (05:29→22:52)
[2021-08-18] MEDS: ALPRAZolam 0.5 MG (XANAX) TAB PO SCH ×7 (05:29→22:52)
[2021-08-18] MEDS: GABAPENTIN 600 MG (NEURONTIN) TAB PO SCH ×4 (05:29→22:52)
[2021-08-18] MEDS: NOREPINEPHRINE 8 MG/250 ML 250 ML IV SCH ×4 (05:29→23:00)
[2021-08-18] MEDS: KCL 20 MEQ TAB (K-DUR) PO SCH (05:30)
[2021-08-18] MEDS: POTASSIUM CL 10MEQ/50ML IVPB 50 ML IV SCH (05:30)
[2021-08-18] MEDS: MAGNESIUM 1 GM/100 ML IVPB 100 ML IV SCH (05:30)
[2021-08-18] MEDS: FUROSEMIDE 40 MG (LASIX) TAB PO SCH ×2 (05:40→16:35)
[2021-08-18] MEDS: PIPERACILLIN SODIUM/TAZOBACTAM 4.5 GM in NS (IVPB) 100 ML IV SCH ×3 (05:40→18:52)
[2021-08-18] MEDS: inSUlin ASPART (NovoLOG) 1 UNIT/0.01 ML (CHARGE PER UNIT) SC SCH ×7 (05:41→20:33)
[2021-08-18] MEDS: LEVOTHYROXINE 100 MCG (LEVOTHROID) TAB PO SCH (05:41)
[2021-08-18] MEDS: MULTIVIT W/MINERALS TAB (THERAGRAN M) PO SCH (05:41)
[2021-08-18] MEDS: LEVOTHYROXINE 75 MCG (LEVOTHROID) TABLET PO SCH (05:41)
[2021-08-18] MEDS: amLODIPine 5 MG (NORVASC) TAB PO SCH (07:40)
[2021-08-18] MEDS: SENNOSIDES 8.6 MG (SENOKOT) TAB PO SCH ×2 (07:41→20:33)
[2021-08-18] MEDS: DOCUSATE SODIUM 100 MG (COLACE) CAP PO SCH ×2 (07:41→20:34)
[2021-08-18] MEDS: FOLIC ACID 1 MG TAB PO SCH (09:00)
[2021-08-18] MEDS: MICONAZOLE 2% POWDER (DESENEX AF) 90 GM TOP SCH ×2 (09:00→20:34)
[2021-08-18] MEDS: PANTOPRAZOLE 20 MG TABLET (PROTONIX) PO SCH ×2 (09:00→20:34)
--- NOTE | 2021-08-18 09:09 | Cardiology Progress Note ---
Subjective Date Seen by Provider: August 18, 2021 Time Seen by Provider: 09:07 Subjective/Events-last exam Patient was seen at bedside, laying down comfortably Still on BiPAP today Review of Systems General: No Chills, No Night Sweats; Fatigue, Malaise; No Appetite, No Other HEENT: No Head Aches, No Visual Changes, No Eye Pain, No Ear Pain, No Dysphasia, No Sinus Congestion, No Post Nasal Drip, No Sore Throat, No Other Pulmonary: Dyspnea; No Cough, No Pleuritic Chest Pain, No Other Cardiovascular: No: Chest Pain, Palpitations, Orthopnea, Paroxysmal Noc. Dyspnea, Edema, Lt Headedness, Other Objective-Cardiology Exam Last Set of Vital Signs Vital Signs 08/18/21 08/18/21 04:00 08:00 Temp 36.2 Pulse 66 Resp 25 B/P (MAP) 133/64 (87) Pulse Ox 92 O2 Delivery NIV Bilevel O2 Flow Rate 50.00 FiO2 70 I&O Intake and Output 08/18/21 00:00 Intake Total 350 ml Output Total 1500 ml Balance -1150 ml Intake Oral 350 ml Output Urine Total 1500 ml General: Alert, Oriented X3, Cooperative, Mild Distress HEENT: Atraumatic, PERRLA Neck: Supple, No JVD Lungs: Normal Air Movement Heart: Regular Rate, Normal S1, Normal S2, No Murmurs Abdomen: Normal Bowel Sounds, Soft Extremities: No Clubbing Skin: No Rashes Neuro: Normal Speech Psych/Mental Status: Mental Status NL Results Lab Laboratory Tests 08/18/21 04:00 A/P-Cardiology Admission Diagnosis Urosepsis CAD PAF HTN Assessment/Plan Status post acute respiratory failure, history of chronic respiratory in sufficiency due to chronic CO2 retention and morbid obesity Using BiPAP at night and Vapotherm during the day. Discussed with Dr. Arthur regarding the management plan, we will continue trying to wean her off Vapotherm and use nasal cannula Continue on Lasix and continue to monitor Urosepsis, improved. Patient was restarted on antibiotics. Managed by medical team. Coronary artery disease with history of stents x2 to the RCA,3.512 mm vision stent in 2009. 3.012 mm vision stent in 2010 with most recent cardiac catheterization in November 2015 revealing patent stents to the RCA with otherwise nonobstructive disease. 2D Echo done 08/05/21 showing EF 60-65%, PA 20-25mmHg. Technically difficult study. Paroxysmal atrial fibrillation, diagnosed April 2019, was hospitalized for A. fib with RVR with tachybradycardia episodes, converted to sinus rhythm, currently in sinus rhythm History of GI bleed on 04/27/2020 requiring blood transfusion. 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 Hyperlipidemia, monitor lipids Diabetes mellitus-managed by primary care physician, continue to monitor Severe obesity, BMI 74 was referred for possible weight loss surgery in the past, however patient has decided against surgery at this time. Bilateral lower extremity pain and swelling-discussed weight loss. Mild bilateral nonobstructive carotid artery stenosis, most recent carotid duplex done in November 2018, continue to monitor. Hypothyroidism, continue to monitor thyroid function test. Obstructive sleep apnea BELLE VERA MD August 18, 2021 09:08
--- NOTE | 2021-08-18 09:58 | Tele-ICU Progress Note ---
Subjective Date Seen by a Provider: August 18, 2021 Time Seen by a Provider: 09:57 Subjective/Events-last exam Tele-ICU Physician , Progress Note ) Available chart/ vitals / labs / Images reviewed Video assessment done using teleICU camera, rest of exam as per RN Discussed with RN , EXAM PER RN Events overnight : Afebrile FiO2 - VT I/O = neg Drips: Pressors: , hemodynamically stable Consultants: cassie Hospital course: Pt is a 66 y/o female, direct admit from an outside hospital. Pt found to have Sepsis-UTI and resp failure, requiring Bipap therpy. Pt transafered for highte level of care with ICU capabilities. 08/04 - 14/11 50% , 500 rr 26 08/05 BIPAP 14/11 30 %rr 30 tv 400 (08/10) READMIT from floor for acute resp failure - BIPAP + lasix 08/17 - levo , zosyn A/P Acute resp failure 08/04 NIPPV 14/11 50% , 500 rr 26- wenaed off --> trnsfered to med floor on high flow 02 10 L and nocturnal Bipap 40 % 08/10 - acute resp failure - BIPAP + lasix --> VT 45 % 70% 08/14 - BiPAP at night. Vapotherm 30 L 85 % during the day - cont doiresis LTAC planned 08/17 - BIPAP 75 % 14/01 rr 23 tv tv - 08/17 - levo , zosyn added Shock - on levo on - will repeatt cx ( from line , sputum - try to wean off levo -zosyn started - , consider vanco to add ( repat PCT to see the trend , if rising - add vanco - cortisol level ordered CAD, s/p stenting - cont to monitor - ECHO 2019 - EF 55% - RVSP 40, , PA 20-25mmHg H/o Afib- in sinus now - iftikhar 60 q12 ( proph -not on AC ( contraindicated with previous bleed as per chart DM II - ISS Anemia - stable ISABELA/ [facility] - will need to cont on nocturnal bgiap ( has CPAP at home and 3 L o2 Anxiety - Xanax and prn ativan Lines : R IJ 08/03 (Central Line Necessity Reviewed) Mack: + OG: Nutrition: po Analgesia: Anxiety/ delirium Xanax and prn ativan VTE Prophylaxis: - iftikhar 60 q12 Stress Ulcer Prophylaxis: PO Plans in collaboration with bedside consultants and IM MDs. Discussed with RN to reach out if any questions or concerns A total of 31 minutes of critical care time was devoted to this patient tod ay, required to treat and/or prevent further deterioration of critical care condition ( as above Sepsis Event Evaluation Height, Weight, BMI Height: 5'5.00" Weight: 380lbs. 0.0oz. [id number]; 71.42 BMI Method: Exam Exam Patient acknowledged, consented, and participated in this virtual visit which was conducted using real time audio/video Vital Signs Date Time Temp Pulse Resp B/P (MAP) Pulse Ox O2 Delivery O2 Flow Rate FiO2 08/18/21 08:00 36.2 08/18/21 08:00 66 25 133/64 (87) 92 NIV Bilevel 50.00 08/18/21 07:23 68 08/18/21 07:00 64 20 141/70 (93) 92 NIV Bilevel 50.00 08/18/21 06:46 56 25 94 55.00 08/18/21 06:00 61 31 134/55 (81) 93 NIV Bilevel 55.00 08/18/21 05:29 68 108/50 08/18/21 05:00 66 25 114/51 (72) 93 NIV Bilevel 55.00 08/18/21 04:00 NIV Bilevel 70 08/18/21 04:00 68 28 108/50 (67) 92 NIV Bilevel 55.00 08/18/21 03:48 37.0 08/18/21 03:00 62 25 120/51 (71) 95 NIV Bilevel 55.00 08/18/21 02:42 63 26 96 60.00 08/18/21 02:40 64 25 95 NIV Bilevel 55.00 08/18/21 02:00 63 24 135/54 (69) 95 NIV Bilevel 60.00 08/18/21 01:05 66 25 94/44 (57) 91 NIV Bilevel 60.00 08/18/21 01:00 68 22 82/30 (40) 92 NIV Bilevel 60.00 08/18/21 01:00 68 08/18/21 00:45 67 24 96/43 (59) 93 NIV Bilevel 60.00 08/18/21 00:30 75 29 141/61 (99) 92 NIV Bilevel 60.00 08/18/21 00:15 71 25 137/63 (90) 92 NIV Bilevel 60.00 08/18/21 00:00 70 8 132/113 (114) 93 NIV Bilevel 60.00 08/18/21 00:00 NIV Bilevel 70 08/17/21 23:45 65 23 120/49 (72) 90 NIV Bilevel 60.00 08/17/21 23:30 67 14 123/52 (70) 90 NIV Bilevel 60.00 08/17/21 23:26 36.5 08/17/21 23:15 67 16 116/48 (69) 92 NIV Bilevel 60.00 08/17/21 23:00 68 14 123/52 (73) 92 NIV Bilevel 60.00 08/17/21 22:45 65 24 112/46 (66) 90 NIV Bilevel 60.00 08/17/21 22:30 63 24 112/51 (68) 91 NIV Bilevel 60.00 08/17/21 22:18 64 21 93 NIV Bilevel 60.00 08/17/21 22:15 65 22 112/54 (71) 93 NIV Bilevel 65.00 08/17/21 22:12 63 27 94 65.00 08/17/21 22:00 63 31 119/55 (72) 92 NIV Bilevel 65.00 08/17/21 21:45 59 21 114/50 (71) 90 NIV Bilevel 65.00 08/17/21 21:30 59 21 114/53 (66) 90 NIV Bilevel 65.00 08/17/21 21:15 64 23 125/55 (80) 90 NIV Bilevel 65.00 08/17/21 21:00 64 21 120/47 (71) 94 NIV Bilevel 65.00 08/17/21 20:45 67 19 136/60 (83) 92 NIV Bilevel 65.00 08/17/21 20:30 71 12 126/59 (77) 93 NIV Bilevel 65.00 08/17/21 20:15 65 18 120/53 (71) 94 NIV Bilevel 65.00 08/17/21 20:00 68 13 124/55 (75) 94 NIV Bilevel 65.00 08/17/21 20:00 NIV Bilevel 70 08/17/21 19:45 64 29 125/56 (79) 93 NIV Bilevel 65.00 08/17/21 19:40 66 129/59 08/17/21 19:30 70 20 126/56 (80) 93 NIV Bilevel 65.00 08/17/21 19:23 36.8 08/17/21 19:15 70 23 123/65 (78) 93 NIV Bilevel 65.00 08/17/21 19:00 69 08/17/21 19:00 69 18 133/58 (79) 93 NIV Bilevel 65.00 08/17/21 18:50 31 95 NIV Bilevel 65.00 08/17/21 18:39 66 26 94 65.00 08/17/21 18:00 62 22 119/54 (75) 94 NIV Bilevel 70.00 08/17/21 17:00 69 12 136/64 (88) 92 NIV Bilevel 70.00 08/17/21 16:00 64 18 116/46 (69) 96 NIV Bilevel 70.00 08/17/21 16:00 36.9 08/17/21 15:09 NIV Bilevel 70 08/17/21 15:00 63 20 97/42 (60) 96 NIV Bilevel 70.00 08/17/21 14:44 59 99/43 08/17/21 14:41 59 22 96 75.00 08/17/21 14:00 59 20 109/47 (67) NIV Bilevel 75.00 08/17/21 13:01 59 08/17/21 13:00 58 21 117/58 (77) 96 NIV Bilevel 75.00 08/17/21 12:04 NIV Bilevel 75 08/17/21 12:00 36.7 08/17/21 12:00 58 114/56 (75) 94 NIV Bilevel 75.00 08/17/21 11:00 61 17 134/68 (90) 92 NIV Bilevel 75.00 08/17/21 10:45 61 88/41 08/17/21 10:30 103/48 (66) 08/17/21 10:25 63 24 92 75.00 08/17/21 10:00 60 22 89/44 (59) 90 NIV Bilevel 75.00 I & O 08/18/21 07:00 Intake Total 300 ml Output Total 1950 ml Balance -1650 ml Height & Weight Height: 5'5.00" Weight: 380lbs. 0.0oz. [id number]; 71.42 BMI Method: General Appearance: No Apparent Distress, Obese HEENT: PERRL/EOMI, Moist Mucous Membranes Neck: Full Range of Motion, Normal Inspection Respiratory: Lungs Clear (Anteriorly), No Accessory Muscle Use, No Respiratory Distress Cardiovascular: Regular Rate, Rhythm, No Gallop, No Murmur Capillary Refill: Less Than 3 Seconds Extremity: Other ( Extremities warm trace edema noted there is crinkling of the skin below the level of the tibia around the ankles suggesting the patient had previously had much more significant Edema.) Neurologic/Psychiatric: Alert, Oriented x3 Skin: Warm/Dry Lymphatic: No Adenopathy Results Lab Laboratory Tests 08/17/21 04:00 08/18/21 04:00 Assessment/Plan Assessment/Plan ` JOSSIE RUBI MD August 18, 2021 09:57
--- NOTE | 2021-08-18 11:21 | Progress Note ---
Subjective Subjective/Events-last exam Pt states she is feeling significantly better today, she is hungry and says she is tired of being in the bed and wants to work with PT. Objective Exam Last Set of Vital Signs Vital Signs Date Time Temp Pulse Resp B/P (MAP) Pulse Ox O2 Delivery O2 Flow Rate FiO2 08/18/21 10:46 Vapotherm 80.00 30.00 08/18/21 10:44 36.3 08/18/21 10:35 93 80 08/18/21 09:00 67 26 134/59 (84) Capillary Refill : Less Than 3 Seconds I&O Intake and Output 08/18/21 00:00 Intake Total 350 ml Output Total 1500 ml Balance -1150 ml Intake Oral 350 ml Output Urine Total 1500 ml General: Alert, Mild Distress Lungs: Other (decreased air movement throughout) Heart: Regular Rate, No Murmurs Abdomen: Normal Bowel Sounds, Soft, No Tenderness Neuro: Normal Speech Psych/Mental Status: Mental Status NL, Mood NL Results/Procedures Lab Laboratory Tests 08/17/21 11:52: Glucometer 181H 08/17/21 16:44: Glucometer 166H 08/17/21 20:22: Glucometer 148H 08/18/21 04:00: White Blood Count 18.0H, Red Blood Count 3.69L, Hemoglobin 9.6L, Hematocrit 32L, Mean Corpuscular Volume 88, Mean Corpuscular Hemoglobin 26, Mean Corpuscular Hemoglobin Concent 30L, Red Cell Distribution Width 16.8H, Platelet Count 424H, Mean Platelet Volume 9.3, Immature Granulocyte % (Auto) 1, Neutrophils (%) (Au to) 84H, Lymphocytes (%) (Auto) 8L, Monocytes (%) (Auto) 5, Eosinophils (%) (Auto) 2, Basophils (%) (Auto) 0, Neutrophils # (Auto) 15.1H, Lymphocytes # (Auto) 1.5, Monocytes # (Auto) 0.9, Eosinophils # (Auto) 0.3, Basophils # (Auto) 0.0, Immature Granulocyte # (Auto) 0.1, Sodium Level 137, Potassium Level 4.2, Chloride Level 88L, Carbon Dioxide Level 36H, Anion Gap 13, Blood Urea Nitrogen 26H, Creatinine 1.02, Estimat Glomerular Filtration Rate 60, BUN/Creatinine Ratio 25, Glucose Level 216H, Calcium Level 8.9, Corrected Calcium 9.7, Phosphorus Level 3.7, Magnesium Level 1.8, Total Bilirubin 0.7, Aspartate Amino Transf (AST/SGOT) 23, Alanine Aminotransferase (ALT/SGPT) 21, Alkaline Phosphatase 94, Total Protein 7.4, Albumin 3.0L 08/18/21 05:29: Glucometer 200H 08/18/21 10:09: Glucometer 208H 08/18/21 10:15: Procalcitonin 0.18H Microbiology 08/03/21 MRSA Screen - Final, Complete MRSA not isolated Assessment/Plan Assessment/Plan (1) Sepsis Status: Acute Assessment & Plan: Suspected to be secondary to UTI. LA normal on admit. Has had persistent respiratory failure however. 08/17 zosyn started per Danielle (2) Acute and chronic respiratory failure Status: Acute Assessment & Plan: Had some initial improvement, but very slow progress, plan was to send to LTACH, however, she has now persistently worsening hypoxia with higher FiO2 need. CXR signs of pulmonary edema, she is on lasix BID. Echo with normal EF. Continue bipap, lasix and appreciate Danielle ICU recommendations. 08/18 able to wean FiO2 down to 55%, will try going back on vapotherm this morning. (3) Hypothyroidism Status: Chronic Assessment & Plan: Home levothyroxine (4) Thrombocytosis Status: Acute Assessment & Plan: Likely secondary to inflammation/sepsis. (5) Leukocytosis Status: Acute (6) Obesity hypoventilation syndrome Status: Chronic Assessment & Plan: CPAP at home prior to admit, now requiring bipap most of the time secondary to acute on chronic respiratory failure. (7) COPD (chronic obstructive pulmonary disease) Status: Chronic (8) Diabetes Status: Chronic Assessment & Plan: On scheduled and sliding scale insulin. Will hold linagliptan given no clear evidence of benefit with insulin and DPP4 inhibitor. 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 Cardiology consulted, appreciate recommendations. Qualifiers: (10) Chronic blood loss anemia Status: Chronic Assessment & Plan: After severe GI bleed in Mar 2020, remains stable but low. (11) Atrial fibrillation Status: Chronic Assessment & Plan: Cardiology consulted, appreciate recommendations. Cannot tolerate full anticoagulation due to history of severe GI bleed. (12) Urinary tract infection Status: Acute Assessment & Plan: s/p 7 doses of ceftriaxone. (13) Hyperlipidemia Status: Chronic (14) Obesities, morbid Status: Chronic (15) DVT prophylaxis Status: Acute Assessment & Plan: Enoxaparin (16) Discharge planning issues Status: Acute Assessment & Plan: Rediscussed code status today (08/18) discussed the prolonged course and suspected poor outcome of code or intubation and she states she wants to continue to fight and have all measures done, she says she will work with PT today as her respiratory status is improved some. ANA LUISA JOHNSON MD August 18, 2021 11:21
[2021-08-18] MEDS: lisINopril 5 MG (PRINIVIL) TABLET PO SCH (20:33)
[2021-08-19] VITALS (29 sets, daily range): BP systolic 93–155; BP diastolic 42–77
[2021-08-19] MEDS: RT-ALBUTEROL/IPRATROPIUM 3 ML (DUONEB) VIAL INH SCH ×6 (02:14→22:32)
[2021-08-19] MEDS: PIPERACILLIN SODIUM/TAZOBACTAM 4.5 GM in NS (IVPB) 100 ML IV SCH ×3 (02:48→18:35)
[2021-08-19] MEDS: ALPRAZolam 0.5 MG (XANAX) TAB PO SCH ×5 (04:09→20:25)
[2021-08-19 04:44] LABS: BASOPHILS # (AUTO) 0.1 10^3/uL (0.0-0.1); BASOPHILS % (AUTO) 0 % (0-10); EOSINOPHILS # (AUTO) 0.3 10^3/uL (0.0-0.3); EOSINOPHILS % (AUTO) 2 % (0-10); HEMATOCRIT 34 % (35-52); HEMOGLOBIN 9.8 g/dL (11.5-16.0); LYMPHOCYTES # (AUTO) 1.7 10^3/uL (1.0-4.0); LYMPHOCYTES % (AUTO) 11 % (12-44); MEAN CORPUSCULAR HEMOGLOBIN 25 pg (25-34); MEAN CORPUSCULAR HGB CONC 29 g/dL (32-36); MEAN CORPUSCULAR VOLUME 87 fL (80-99); MEAN PLATELET VOLUME 9.6 fL (9.0-12.2); MONOCYTES # (AUTO) 0.7 10^3/uL (0.0-1.0); MONOCYTES % (AUTO) 5 % (0-12); NEUTROPHILS # (AUTO) 12.4 10^3/uL (1.8-7.8); NEUTROPHILS % (AUTO) 81 % (42-75); PLATELET COUNT 427 10^3/uL (130-400); WHITE BLOOD COUNT 15.3 10^3/uL (4.3-11.0)
[2021-08-19 05:02] LABS: CALCIUM 9.2 MG/DL (8.5-10.1)
[2021-08-19 05:03] LABS: TOTAL PROTEIN 7.5 GM/DL (6.4-8.2)
[2021-08-19 05:05] LABS: BILIRUBIN,TOTAL 0.6 MG/DL (0.1-1.0)
[2021-08-19 05:06] LABS: PHOSPHORUS 3.1 MG/DL (2.3-4.7)
[2021-08-19 05:07] LABS: CREATININE SERUM 1.06 MG/DL (0.60-1.30)
[2021-08-19 05:09] LABS: MAGNESIUM 1.8 MG/DL (1.6-2.4)
[2021-08-19] MEDS: KCL 20 MEQ TAB (K-DUR) PO SCH (05:15)
[2021-08-19] MEDS: MAGNESIUM 1 GM/100 ML IVPB 100 ML IV SCH (05:15)
[2021-08-19] MEDS: POTASSIUM CL 10MEQ/50ML IVPB 50 ML IV SCH (05:15)
[2021-08-19] MEDS: NOREPINEPHRINE 8 MG/250 ML 250 ML IV SCH ×3 (05:15→20:53)
[2021-08-19] MEDS: LEVOTHYROXINE 75 MCG (LEVOTHROID) TABLET PO SCH (06:13)
[2021-08-19] MEDS: GABAPENTIN 600 MG (NEURONTIN) TAB PO SCH ×3 (06:14→23:09)
[2021-08-19] MEDS: LEVOTHYROXINE 100 MCG (LEVOTHROID) TAB PO SCH (06:14)
[2021-08-19] MEDS: MULTIVIT W/MINERALS TAB (THERAGRAN M) PO SCH (06:14)
[2021-08-19] MEDS: FUROSEMIDE 40 MG (LASIX) TAB PO SCH ×2 (06:14→16:35)
[2021-08-19] MEDS: inSUlin ASPART (NovoLOG) 1 UNIT/0.01 ML (CHARGE PER UNIT) SC SCH ×7 (06:14→20:47)
[2021-08-19] MEDS: amLODIPine 5 MG (NORVASC) TAB PO SCH (09:02)
[2021-08-19] MEDS: SENNOSIDES 8.6 MG (SENOKOT) TAB PO SCH ×2 (09:02→20:25)
[2021-08-19] MEDS: FOLIC ACID 1 MG TAB PO SCH (09:02)
[2021-08-19] MEDS: predniSONE 20 MG TAB PO SCH (09:02)
[2021-08-19] MEDS: PANTOPRAZOLE 20 MG TABLET (PROTONIX) PO SCH ×2 (09:02→20:25)
[2021-08-19] MEDS: MICONAZOLE 2% POWDER (DESENEX AF) 90 GM TOP SCH ×2 (09:02→20:53)
[2021-08-19] MEDS: DOCUSATE SODIUM 100 MG (COLACE) CAP PO SCH ×2 (09:03→20:25)
--- NOTE | 2021-08-19 09:41 | Tele-ICU Progress Note ---
Subjective Date Seen by a Provider: August 19, 2021 Subjective/Events-last exam ( Tele-ICU Physician , Progress Note ) Available chart/ vitals / labs / Images reviewed Video assessment done using teleICU camera, rest of exam as per RN Discussed with RN , EXAM PER RN Events overnight : Afebrile FiO2 - VT I/O = neg Drips: Pressors: , hemodynamically stable Consultants: cassie Hospital course: Pt is a 66 y/o female, direct admit from an outside hospital. Pt found to have Sepsis-UTI and resp failure, requiring Bipap therpy. Pt transafered for highte level of care with ICU capabilities. 08/04 - 20/ 50% , 500 rr 26 08/05 BIPAP 14/11 30 %rr 30 tv 400 (08/10) READMIT from floor for acute resp failure - BIPAP + lasix 08/17 - levo , zosyn A/P Acute resp failure 08/04 NIPPV 14/11 50% , 500 rr 26- wenaed off --> trnsfered to med floor on high flow 02 10 L and nocturnal Bipap 40 % 08/10 - acute resp failure - BIPAP + lasix --> VT 45 % 70% 08/14 - BiPAP at night. Vapotherm 30 L 85 % during the day - cont doiresis LTAC planned 08/17 - BIPAP 75 % 14/01 rr 23 tv tv - 08/17 - levo , zosyn added 08/19 - VT 40L 65% -08/19 -off levo , removed central line Shock - on levo on - will repeatt cx ( from line , sputum - OFF LEVO 08/19 -zosyn started - , consider vanco to add ( PCT trend down , if rising - add vanco - cortisol level 20 on 08/18 Acute resp failure - cont diuresis - steroids PO started on 08/19 CAD, s/p stenting - cont to monitor - ECHO - EF 55% - RVSP 40, , PA 20-25mmHg H/o Afib- in sinus now - iftikhar 60 q12 ( proph -not on AC ( contraindicated with previous bleed as per chart DM II - ISS Anemia - stable ISABELA/ [facility] - will need to cont on nocturnal bgiap ( has CPAP at home and 3 L o2 Anxiety - Xanax and prn ativan Lines : R IJ 08/03 - self removed 08/19 - Central Line Necessity Reviewed) Mack: + OG: Nutrition: po Analgesia: Anxiety/ delirium Xanax and prn ativan VTE Prophylaxis: - iftikhar 60 q12 Stress Ulcer Prophylaxis: PO Plans in collaboration with bedside consultants and IM MDs. Discussed with RN to reach out if any questions or concerns A total of 31 minutes of critical care time was devoted to this patient today, required to treat and/or prevent further deterioration of critical care condition ( as above Sepsis Event Evaluation Height, Weight, BMI Height: 5'5.00" Weight: 380lbs. 0.0oz. [id number]; 71.42 BMI Method: Exam Exam Patient acknowledged, consented, and participated in this virtual visit which was conducted using real time audio/video Vital Signs Date Time Temp Pulse Resp B/P (MAP) Pulse Ox O2 Delivery O2 Flow Rate FiO2 08/19/21 09:00 67 25 122/59 (80) 96 Vapotherm 55.00 40.00 08/19/21 08:10 55.00 40.00 08/19/21 08:00 99 Vapotherm 40.00 55 08/19/21 08:00 65 18 105/54 (71) 99 Vapotherm 55.00 25.00 08/19/21 07:28 35.8 08/19/21 07:00 72 08/19/21 07:00 72 23 109/50 (69) 100 Vapotherm 70.00 40.00 08/19/21 06:59 100 Vapotherm 40.00 65 08/19/21 06:21 60 16 102/47 (65) NIV Bilevel 50.00 08/19/21 05:00 60 22 93/42 (59) NIV Bilevel 50.00 08/19/21 04:00 NIV Bilevel 50 08/19/21 04:00 67 11 103/54 (70) 91 NIV Bilevel 50.00 08/19/21 03:51 35.7 08/19/21 03:06 69 30 120/50 (70) NIV Bilevel 50.00 08/19/21 02:14 68 25 91 50.00 08/19/21 02:00 73 11 104/48 (75) 92 NIV Bilevel 50.00 08/19/21 01:30 61 22 106/45 (72) 90 NIV Bilevel 08/19/21 01:00 64 08/19/21 01:00 64 26 106/46 (65) 90 NIV Bilevel 50.00 08/19/21 00:47 65 24 115/52 (80) 90 08/19/21 00:01 NIV Bilevel 50.00 08/19/21 00:00 65 22 107/44 (66) 89 NIV Bilevel 50.00 08/19/21 00:00 NIV Bilevel 50 08/18/21 23:40 77 12 91 NIV Bilevel 50.00 08/18/21 23:35 36.1 08/18/21 23:30 71 26 118/52 (72) 91 08/18/21 23:15 76 27 130/56 (78) 91 08/18/21 23:00 73 23 124/54 (78) 93 Vapotherm 80.00 30.00 08/18/21 22:45 71 26 124/54 (80) 90 08/18/21 22:30 75 25 132/54 (80) 90 08/18/21 22:20 91 Vapotherm 40.00 80 08/18/21 22:15 71 25 114/49 (70) 90 08/18/21 22:00 74 28 114/50 (71) 92 Vapotherm 80.00 30.00 08/18/21 21:45 71 23 111/51 (68) 89 08/18/21 21:30 75 25 119/52 (84) 91 08/18/21 21:15 75 24 121/56 (73) 08/18/21 21:00 75 19 122/52 (78) 91 Vapotherm 80.00 30.00 08/18/21 20:45 77 27 151/67 (93) 90 08/18/21 20:30 79 18 131/71 (94) 93 08/18/21 20:15 77 26 118/48 (78) 91 08/18/21 20:00 79 25 116/62 (88) 96 Vapotherm 80.00 30.00 08/18/21 20:00 NIV Bilevel 50 08/18/21 19:45 75 17 117/53 (66) 93 08/18/21 19:37 36.9 08/18/21 19:30 78 39 116/50 (72) 92 08/18/21 19:15 78 19 115/56 (83) 92 08/18/21 19:14 94 Vapotherm 40.00 80 08/18/21 19:00 76 26 97/53 (69) 93 Vapotherm 80.00 30.00 08/18/21 19:00 78 08/18/21 18:00 79 15 125/73 (90) 96 NIV Bilevel 50.00 08/18/21 17:00 71 25 120/59 (79) 94 NIV Bilevel 50.00 08/18/21 16:05 72 103/51 08/18/21 16:00 72 30 103/51 (68) 89 NIV Bilevel 50.00 08/18/21 16:00 NIV Bilevel 50 08/18/21 16:00 35.3 08/18/21 15:00 73 23 114/49 (70) 90 NIV Bilevel 50.00 08/18/21 14:10 72 28 91 50.00 08/18/21 14:02 NIV Bilevel 50.00 08/18/21 14:00 75 25 110/52 (71) 93 NIV Bilevel 50.00 08/18/21 13:00 80 08/18/21 13:00 80 21 112/62 (79) 95 Vapotherm 80.00 30.00 08/18/21 12:00 Vapotherm 30.00 80 08/18/21 12:00 72 23 118/50 (72) 91 Vapotherm 80.00 30.00 08/18/21 11:00 78 15 110/42 (64) 91 Vapotherm 80.00 30.00 08/18/21 10:46 Vapotherm 80.00 30.00 08/18/21 10:44 36.3 08/18/21 10:35 93 Vapotherm 40.00 80 08/18/21 10:00 76 22 127/59 (81) 94 Vapotherm 90.00 30.00 08/18/21 09:45 95 Vapotherm 90.00 30.00 I & O 08/19/21 07:00 Intake Total 1630 ml Output Total 2450 ml Balance -820 ml Height & Weight Height: 5'5.00" Weight: 380lbs. 0.0oz. [id number]; 71.42 BMI Method: General Appearance: No Apparent Distress, Obese HEENT: PERRL/EOMI, Moist Mucous Membranes Neck: Full Range of Motion, Normal Inspection Respiratory: Lungs Clear, No Accessory Muscle Use, No Respiratory Distress Cardiovascular: Regular Rate, Rhythm, No Gallop, No Murmur Capillary Refill: Less Than 3 Seconds Extremity: Other Neurologic/Psychiatric: Alert, Oriented x3 Skin: Warm/Dry Lymphatic: No Adenopathy Results Lab Laboratory Tests 08/18/21 04:00 08/19/21 04:25 Assessment/Plan Assessment/Plan 1 JOSSIE RUBI MD August 19, 2021 09:41
--- NOTE | 2021-08-19 10:58 | Progress Note ---
Subjective Subjective/Events-last exam Tolerated vapotherm but at high FiO2 yesterday. This morning at time of my exam is on vapotherm at 50% FiO2 with good oxygen saturation, but is sleepy and only awakens briefly to answer questions. Objective Exam Last Set of Vital Signs Vital Signs Date Time Temp Pulse Resp B/P (MAP) Pulse Ox O2 Delivery O2 Flow Rate FiO2 08/19/21 10:29 88 High Flow N/C 10.00 08/19/21 10:26 27 08/19/21 10:00 63 101/52 (68) 08/19/21 08:00 55 08/19/21 07:28 35.8 Capillary Refill : Less Than 3 Seconds I&O Intake and Output 08/19/21 00:00 Intake Total 1630 ml Output Total 2550 ml Balance -920 ml Intake Oral 1630 ml Output Urine Total 2550 ml # Bowel Movements 2 General: Other (lethargic) Lungs: Other (expiratory wheezing) Heart: Regular Rate Abdomen: Normal Bowel Sounds, Soft Psych/Mental Status: Other (drowsy, answers questions minimally) Results/Procedures Lab Laboratory Tests 08/18/21 15:47: Glucometer 250H 08/18/21 20:24: Glucometer 212H 08/19/21 04:25: White Blood Count 15.3H, Red Blood Count 3.86, Hemoglobin 9.8L, Hematocrit 34L, Mean Corpuscular Volume 87, Mean Corpuscular Hemoglobin 25, Mean Corpuscular Hemoglobin Concent 29L, Red Cell Distribution Width 16.8H, Platelet Count 427H, Mean Platelet Volume 9.6, Immature Granulocyte % (Auto) 1, Neutrophils (%) (Auto) 81H, Lymphocytes (%) (Auto) 11L, Monocytes (%) (Auto) 5, Eosinophils (%) (Auto) 2, Basophils (%) (Auto) 0, Neutrophils # (Auto) 12.4H, Lymphocytes # (Auto) 1.7, Monocytes # (Auto) 0.7, Eosinophils # (Auto) 0.3, Basophils # (Auto) 0.1, Immature Granulocyte # (Auto) 0.1, Sodium Level 135, Potassium Level 4.0, Chloride Level 87L, Carbon Dioxide Level 35H, Anion Gap 13, Blood Urea Nitrogen 24H, Creatinine 1.06, Estimat Glomerular Filtration Rate 58, BUN/Creatinine Ratio 23, Glucose Level 238H, Calcium Level 9.2, Corrected Calcium 10.0, Phosphorus Level 3.1, Magnesium Level 1.8, Total Bilirubin 0.6, Aspartate Amino Transf (AST/SGOT) 21, Alanine Aminotransferase (ALT/SGPT) 20, Alkaline Phosphatase 93, Total Protein 7.5, Albumin 3.0L 08/19/21 10:32: Glucometer 200H Microbiology 08/03/21 MRSA Screen - Final, Complete MRSA not isolated Assessment/Plan Assessment/Plan (1) Sepsis Status: Acute Assessment & Plan: Suspected to be secondary to UTI. LA normal on admit. Has had persistent respiratory failure however. 08/17 zosyn started per Danielle given worsening respiratory status (2) Acute and chronic respiratory failure Status: Acute Assessment & Plan: Had some initial improvement, but very slow progress, plan w as to send to LTACH, however, she has now persistently worsening hypoxia with higher FiO2 need. CXR signs of pulmonary edema, she is on lasix BID. Echo with normal EF. Continue bipap, lasix and appreciate Danielle ICU recommendations. 08/18 able to wean FiO2 down to 55%, will try going back on vapotherm this morning. 08/19 continuing to attempt to wean supplemental oxygen (3) Hypothyroidism Status: Chronic Assessment & Plan: Home levothyroxine (4) Thrombocytosis Status: Acute Assessment & Plan: Likely secondary to inflammation/sepsis. (5) Leukocytosis Status: Acute (6) Obesity hypoventilation syndrome Status: Chronic Assessment & Plan: CPAP at home prior to admit, now requiring bipap significant portion of the time secondary to acute on chronic respiratory failure. (7) COPD (chronic obstructive pulmonary disease) Status: Chronic Assessment & Plan: 08/19 wheezing today, will add prednisone Qualifiers: Qualified Codes: J44.1 - Chronic obstructive pulmonary disease with (acute) exacerbation (8) Diabetes Status: Chronic Assessment & Plan: On scheduled and sliding scale insulin. Will hold linagliptan given no clear evidence of benefit with insulin and DPP4 inhibitor. 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 Cardiology consulted, appreciate recommendations. Qualifiers: (10) Chronic blood loss anemia Status: Chronic Assessment & Plan: After severe GI bleed in Mar 2020, remains stable but low. (11) Atrial fibrillation Status: Chronic Assessment & Plan: Cardiology consulted, appreciate recommendations. Cannot tolerate full anticoagulation due to history of severe GI bleed. (12) Urinary tract infection Status: Acute Assessment & Plan: s/p 7 doses of ceftriaxone. (13) Hyperlipidemia Status: Chronic (14) Obesities, morbid Status: Chronic (15) DVT prophylaxis Status: Acute Assessment & Plan: Enoxaparin (16) Discharge planning issues Status: Acute Assessment & Plan: Rediscussed code status today (08/18) discussed the prolonged course and suspected poor outcome of code or intubation and she states she wants to continue to fight and have all measures done, she says she will work with PT today as her respiratory status is improved some. ANA LUISA JOHNSON MD August 19, 2021 10:58
--- NOTE | 2021-08-19 11:29 | Physical Therapy Evaluation ---
PT Evaluation-General Medical Diagnosis Admission Date August 03, 2021 at 22:20 Medical Diagnosis: sepsis, acute and chronic resp failure Onset Date: August 03, 2021 Therapy Diagnosis Therapy Diagnosis: impaired mobility, strength, endurance Height/Weight Height (Feet): 5 Height (Inches): 5.00 Weight (Pounds): 380 Weight (Ounces): 0.0 Precautions Precautions/Isolations: Aspiration, Fall Prevention, Standard Precautions, Pressure Ulcer Weight Bear Status Right Lower Extremity: Right Full Weight Bearing Left Lower Extremity: Left Full Weight Bearing Referral Physician: Jerson Reason for Referral: Evaluation/Treatment Medical History Pertinent Medical History: Arthritis, CAD, COPD, DM, GERD, HTN, Hypothroidism, Neuropathy Reviewed History: Yes Social History Home: Single Level Current Living Status: Spouse Entry Into Home: Level Entry PT Steps Into Home: 0 PT Steps Inside Home: 0 Prior Prior Level of Function SCALE: Activities may be completed with or without assistive devices. 6-Rcrwdfwqra-ealkwak completes the activity by him/herself with no assistance from a helper. 5-Set-up or Clean-up Assistance-helper sets up or cleans up; patient completes activity. Selah assists only prior to or following the activity. 4-Supervision or Touching Assistance-helper provides verbal cues and/or touching/steadying and/or contact guard assistance as patient completes activity. Assistance may be provided throughout the activity or intermittently. 3-Partial/Moderate Assistance-helper does LESS THAN HALF the effort. Selah lifts, holds or supports trunk or limbs, but provides less than half the effort. 2-Substantial/Maximal Assistance-helper does MORE THAN HALF the effort. Selah lifts or holds trunk or limbs and provides more than half the effort. 5-Hccczrnoo-ufslhs does ALL the effort. Patient does none of the effort to com plete the activity. Or, the assistance of 2 or more helpers is required for the patient to complete the activity. If activity was not attempted, code reason: 7-Patient Refused. 9-Not Applicable-not attempted and the patient did not perform the activity before the current illness, exacerbation or injury. 10-Not Attempted due to Environmental Limitations-(lack of equipment, weather restraints, etc.). 88-Not Attempted due to Medical Conditions or Safety Concerns. Bed Mobility: 6 Transfers (B,C,W/C): 6 Gait: 6 Indoor Mobility (Ambulation): Independent Stairs: Not Applicalbe Prior Devices Use: Manual wheelchair, Walker PT Evaluation-Current Subjective Patient in bed pre tx, agrees to PT, has unrated pain in right hip, worse with movement. Nurse states patient has been having difficulty with her breathing and just put her on the bipap, gives the ok to assess and perform exercises in bed, nothing more than that for now. Pt/Family Goals to be independent at home Objective Patient Orientation: Person, Place, Situation Attachments: Oxygen (bipap) ROM/Strength ROM Lower Extremities limited due to obesity Strength Lower Extremities LLE grossly 3+/5, RLE grossly 3-/5 and painful hip with movement Integumentary/Posture Bowel Incontinence: No Bladder Incontinence: Mack Cath Sensory Vision: Functional Hearing: Functional Sensation Right Lower Extremit: Impaired Sensation Left Lower Extremity: Impaired Treatment BLE supine exercises x10 (AP 20 reps, QS, GS, HS, hip abd/add, SLR), AAROM with hip abd/add and HS and SLR on the right side, AAROM with SLR on the left side Assessment/Needs Patient in bed post tx with nurse call, phone, tray, all needs met. Patient has impaired mobility. Patient needed several rest breaks. At one point her O2 dropped into the upper 80's during exercise, stopped to rest and let O2 increase but it took quite a while. Rehab Potential: Guarded PT Emts Goals Fdc Goals PT Emts Goals Time Frame: Aug 26, 2021 Roll Left & Right (QC): 3 (Chemo) Sit to Lying (QC): 3 (modA) Lying-Sitting on Side/Bed(QC): 3 (modA) Sit to Stand (QC): 3 (modA) Chair/Uxs-ok-Qdcke Xfer(QC): 3 (modA) PT Plan Problem List Problem List: Activity Tolerance, Functional Strength, Safety, Balance, Gait, Transfer, Bed Mobility, ROM Treatment/Plan Treatment Plan: Continue Plan of Care Treatment Plan: Bed Mobility, Education, Functional Activity Ron, Functional Strength, Group Therapy, Gait, Safety, Therapeutic Exercise, Transfers Treatment Duration: Aug 26, 2021 Frequency: 6 times per week Estimated Hrs Per Day: .25 hour per day Patient and/or Family Agrees t: Yes Safety Risks/Education Patient Education: Correct Positioning, Safety Issues Teaching Recipient: Patient Teaching Methods: Demonstration, Discussion Response to Teaching: Reinforcement Needed Discharge Recommendations Plan Patient will perform bed mobility and transfer training, balance and endurance training, functional strengthening, gait training, and education, to improve functional mobility and independence at home. Therapy Discharge Recommendati: 24 Hour Supervision Time/GCodes Time In: 1110 Time Out: 1123 Total Billed Treatment Time: 13 Total Billed Treatment 1 visit CHARISMA VALLADARES PT August 19, 2021 11:29
[2021-08-19] MEDS: ENOXAPARIN 60 MG/0.6 ML (LOVENOX) SYR SC SCH ×2 (11:49→23:17)
--- NOTE | 2021-08-19 13:56 | Cardiology Progress Note ---
Subjective Date Seen by Provider: August 19, 2021 Time Seen by Provider: 13:54 Subjective/Events-last exam Patient is laying down in bed, was on Vapotherm. Feeling better. Review of Systems General: No Chills, No Night Sweats; Fatigue, Malaise; No Appetite, No Other HEENT: No Head Aches, No Visual Changes, No Eye Pain, No Ear Pain, No Dysphasia, No Sinus Congestion, No Post Nasal Drip, No Sore Throat, No Other Pulmonary: Dyspnea; No Cough, No Pleuritic Chest Pain, No Other Cardiovascular: No: Chest Pain, Palpitations, Orthopnea, Paroxysmal Noc. Dyspnea, Edema, Lt Headedness, Other Objective-Cardiology Exam Last Set of Vital Signs Vital Signs 08/19/21 08/19/21 12:00 12:35 Temp 36.0 Pulse 72 Resp 16 B/P (MAP) 118/62 (80) Pulse Ox 96 O2 Delivery NIV Bilevel O2 Flow Rate 50.00 FiO2 50 I&O Intake and Output 08/19/21 00:00 Intake Total 1630 ml Output Total 2550 ml Balance -920 ml Intake Oral 1630 ml Output Urine Total 2550 ml # Bowel Movements 2 General: Alert, Oriented X3, Cooperative, Other (lethargic) HEENT: Atraumatic, PERRLA Neck: Supple, No JVD Lungs: Other (expiratory wheezing) Heart: Regular Rate Abdomen: Normal Bowel Sounds, Soft Extremities: No Clubbing Skin: No Rashes Neuro: Normal Speech Psych/Mental Status: Mood NL, Other (drowsy, answers questions minimally) Results Lab Laboratory Tests 08/19/21 04:25 A/P-Cardiology Admission Diagnosis Urosepsis CAD PAF HTN Assessment/Plan Status post acute respiratory failure, history of chronic respiratory insufficiency due to chronic CO2 retention and morbid obesity Using BiPAP at night and Vapotherm during the day. Discussed with Dr. Arthur regarding the management plan, we will continue trying to wean her off Vapotherm and use nasal cannula Continue on Lasix and continue to monitor Urosepsis, improved. Patient was restarted on antibiotics. Managed by medical team. Coronary artery disease with history of stents x2 to the RCA,3.512 mm vision stent in 2009. 3.012 mm vision stent in 2010 with most recent cardiac catheterization in November 2015 revealing patent stents to the RCA with otherwise nonobstructive disease. 2D Echo done 5/11/22 showing EF 60-65%, PA 20-25mmHg. Technically difficult study. Paroxysmal atrial fibrillation, diagnosed April 2019, was hospitalized for A. fib with RVR with tachybradycardia episodes, converted to sinus rhythm, currentl y in sinus rhythm History of GI bleed on 04/27/2020 requiring blood transfusion. 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 Hyperlipidemia, monitor lipids Diabetes mellitus-managed by primary care physician, continue to monitor Severe obesity, BMI 74 was referred for possible weight loss surgery in the past, however patient has decided against surgery at this time. Bilateral lower extremity pain and swelling-discussed weight loss. Mild bilateral nonobstructive carotid artery stenosis, most recent carotid duplex done in November 2018, continue to monitor. Hypothyroidism, continue to monitor thyroid function test. Obstructive sleep apnea BELLE VERA MD August 19, 2021 13:56
[2021-08-19] MEDS: lisINopril 5 MG (PRINIVIL) TABLET PO SCH (20:25)
[2021-08-20] VITALS (22 sets, daily range): BP systolic 105–182; BP diastolic 44–93
[2021-08-20] MEDS: ALPRAZolam 0.5 MG (XANAX) TAB PO SCH ×7 (00:02→23:45)
[2021-08-20] MEDS: NOREPINEPHRINE 8 MG/250 ML 250 ML IV SCH ×4 (02:30→22:49)
[2021-08-20] MEDS: RT-ALBUTEROL/IPRATROPIUM 3 ML (DUONEB) VIAL INH SCH ×6 (02:33→22:10)
[2021-08-20] MEDS: PIPERACILLIN SODIUM/TAZOBACTAM 4.5 GM in NS (IVPB) 100 ML IV SCH ×3 (02:39→20:31)
[2021-08-20 06:04] LABS: BASOPHILS # (AUTO) 0.1 10^3/uL (0.0-0.1); BASOPHILS % (AUTO) 0 % (0-10); EOSINOPHILS # (AUTO) 0.1 10^3/uL (0.0-0.3); EOSINOPHILS % (AUTO) 0 % (0-10); HEMATOCRIT 33 % (35-52); HEMOGLOBIN 9.9 g/dL (11.5-16.0); LYMPHOCYTES # (AUTO) 1.8 10^3/uL (1.0-4.0); LYMPHOCYTES % (AUTO) 11 % (12-44); MEAN CORPUSCULAR HEMOGLOBIN 26 pg (25-34); MEAN CORPUSCULAR HGB CONC 30 g/dL (32-36); MEAN CORPUSCULAR VOLUME 87 fL (80-99); MEAN PLATELET VOLUME 9.8 fL (9.0-12.2); MONOCYTES % (AUTO) 6 % (0-12); NEUTROPHILS # (AUTO) 13.2 10^3/uL (1.8-7.8); NEUTROPHILS % (AUTO) 81 % (42-75); PLATELET COUNT 461 10^3/uL (130-400); WHITE BLOOD COUNT 16.3 10^3/uL (4.3-11.0)
[2021-08-20 06:13] LABS: ALBUMIN 3.1 GM/DL (3.2-4.5)
[2021-08-20] MEDS: GABAPENTIN 600 MG (NEURONTIN) TAB PO SCH ×3 (06:13→23:45)
[2021-08-20] MEDS: FUROSEMIDE 40 MG (LASIX) TAB PO SCH ×2 (06:13→16:31)
[2021-08-20] MEDS: predniSONE 20 MG TAB PO SCH (06:13)
[2021-08-20] MEDS: MULTIVIT W/MINERALS TAB (THERAGRAN M) PO SCH (06:13)
[2021-08-20] MEDS: LEVOTHYROXINE 75 MCG (LEVOTHROID) TABLET PO SCH (06:13)
[2021-08-20] MEDS: LEVOTHYROXINE 100 MCG (LEVOTHROID) TAB PO SCH (06:13)
[2021-08-20 06:14] LABS: POTASSIUM 4.4 MMOL/L (3.6-5.0)
[2021-08-20 06:15] LABS: CALCIUM 9.3 MG/DL (8.5-10.1)
[2021-08-20 06:16] LABS: TOTAL PROTEIN 7.9 GM/DL (6.4-8.2)
[2021-08-20 06:18] LABS: BILIRUBIN,TOTAL 0.5 MG/DL (0.1-1.0)
[2021-08-20 06:19] LABS: PHOSPHORUS 3.2 MG/DL (2.3-4.7)
[2021-08-20 06:20] LABS: CREATININE SERUM 1.2 MG/DL (0.60-1.30)
[2021-08-20 06:22] LABS: MAGNESIUM 1.9 MG/DL (1.6-2.4)
[2021-08-20] MEDS: POTASSIUM CL 10MEQ/50ML IVPB 50 ML IV SCH (06:23)
[2021-08-20] MEDS: KCL 20 MEQ TAB (K-DUR) PO SCH (06:24)
[2021-08-20] MEDS: MAGNESIUM 1 GM/100 ML IVPB 100 ML IV SCH (06:24)
[2021-08-20] MEDS: inSUlin ASPART (NovoLOG) 1 UNIT/0.01 ML (CHARGE PER UNIT) SC SCH ×7 (06:33→20:30)
--- NOTE | 2021-08-20 07:45 | Cardiology Progress Note ---
Subjective Date Seen by Provider: August 20, 2021 Time Seen by Provider: 07:44 Subjective/Events-last exam Patient is laying down in bed, failed attempt to wean off Vapotherm yesterday. Back on Vapotherm 100% Review of Systems General: No Chills, No Night Sweats; Fatigue, Malaise; No Appetite, No Other HEENT: No Head Aches, No Visual Changes, No Eye Pain, No Ear Pain, No Dysphasia, No Sinus Congestion, No Post Nasal Drip, No Sore Throat, No Other Pulmonary: Dyspnea; No Cough, No Pleuritic Chest Pain, No Other Cardiovascular: No: Chest Pain, Palpitations, Orthopnea, Paroxysmal Noc. Dyspnea, Edema, Lt Headedness, Other Objective-Cardiology Exam Last Set of Vital Signs Vital Signs 08/20/21 08/20/21 08/20/21 06:00 07:04 07:37 Temp 36.0 Pulse 60 Resp 22 B/P (MAP) 125/57 (79) Pulse Ox 94 O2 Delivery Vapotherm O2 Flow Rate 40.00 FiO2 100 I&O Intake and Output 08/20/21 00:00 Intake Total 1122 ml Output Total 2500 ml Balance -1378 ml Intake Oral 922 ml IV Total 200 ml Output Urine Total 2500 ml General: Alert, Oriented X3, Cooperative, Other (lethargic) HEENT: Atraumatic, PERRLA Neck: Supple, No JVD Lungs: Other (expiratory wheezing) Heart: Regular Rate Abdomen: Normal Bowel Sounds, Soft Extremities: No Clubbing Skin: No Rashes Neuro: Normal Speech Psych/Mental Status: Mental Status NL, Mood NL, Other (drowsy, answers q uestions minimally) Results Lab Laboratory Tests 08/20/21 05:11 A/P-Cardiology Admission Diagnosis Urosepsis CAD PAF HTN Assessment/Plan Status post acute respiratory failure, history of chronic respiratory in sufficiency due to chronic CO2 retention and morbid obesity Using BiPAP at night and Vapotherm during the day. Failed attempt to wean off Vapotherm yesterday morning. I will try to put her out of bed today sitting in a recliner and attempt to wean her again if possible. Urosepsis, improved. Patient was restarted on antibiotics. Managed by medical team. Coronary artery disease with history of stents x2 to the RCA,3.512 mm vision stent in 2009. 3.012 mm vision stent in 2010 with most recent cardiac catheterization in November 2015 revealing patent stents to the RCA with otherwise nonobstructive disease. 2D Echo done 08/05/21 showing EF 60-65%, PA 20-25mmHg. Technically difficult study. Paroxysmal atrial fibrillation, diagnosed April 2019, was hospitalized for A. fib with RVR with tachybradycardia episodes, converted to sinus rhythm, currently in sinus rhythm History of GI bleed on 04/27/2020 requiring blood transfusion. 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 Hyperlipidemia, monitor lipids Diabetes mellitus-managed by primary care physician, continue to monitor Severe obesity, BMI 74 was referred for possible weight loss surgery in the past, however patient has decided against surgery at this time. Bilateral lower extremity pain and swelling-discussed weight loss. Mild bilateral nonobstructive carotid artery stenosis, most recent carotid duplex done in November 2018, continue to monitor. Hypothyroidism, continue to monitor thyroid function test. Obstructive sleep apnea BELLE VERA MD August 20, 2021 07:45
[2021-08-20] MEDS: FOLIC ACID 1 MG TAB PO SCH (08:35)
[2021-08-20] MEDS: SENNOSIDES 8.6 MG (SENOKOT) TAB PO SCH ×2 (08:36→20:31)
[2021-08-20] MEDS: PANTOPRAZOLE 20 MG TABLET (PROTONIX) PO SCH ×2 (08:36→20:31)
[2021-08-20] MEDS: MICONAZOLE 2% POWDER (DESENEX AF) 90 GM TOP SCH ×2 (08:36→20:32)
[2021-08-20] MEDS: DOCUSATE SODIUM 100 MG (COLACE) CAP PO SCH ×2 (08:36→20:31)
[2021-08-20] MEDS: amLODIPine 5 MG (NORVASC) TAB PO SCH (08:36)
--- NOTE | 2021-08-20 11:32 | Physical Therapy Daily Note ---
PT Daily Note-Current Subjective Patient in bed pre tx, agrees to PT, has unrated pain in right hip with movement. Would like to attempt to get patient out of bed using a ibeth but the one that is rated for her weight is not working at this time. Appearance Patient in bed post tx with nurse call, phone, tray, all needs met. Mental Status Patient Orientation: Person, Place, Situation Attachments: Oxygen (vapotherm), Mack Catheter Transfers SCALE: Activities may be completed with or without assistive devices. 3-Kwtrmwivds-vumamoo completes the activity by him/herself with no assistance from a helper. 5-Set-up or Clean-up Assistance-helper sets up or cleans up; patient completes activity. [place] assists only prior to or following the activity. 4-Supervision or Touching Assistance-helper provides verbal cues and/or touching/steadying and/or contact guard assistance as patient completes activity. Assistance may be provided throughout the activity or intermittently. 3-Partial/Moderate Assistance-helper does LESS THAN HALF the effort. [place] lifts, holds or supports trunk or limbs, but provides less than half the effort. 2-Substantial/Maximal Assistance-helper does MORE THAN HALF the effort. [place] lifts or holds trunk or limbs and provides more than half the effort. 4-Eldfdllft-kjcpig does ALL the effort. Patient does none of the effort to complete the activity. Or, the assistance of 2 or more helpers is required for the patient to complete the activity. If activity was not attempted, code reason: 7-Patient Refused. 9-Not Applicable-not attempted and the patient did not perform the activity before the current illness, exacerbation or injury. 10-Not Attempted due to Environmental Limitations-(lack of equipment, weather restraints, etc.). 88-Not Attempted due to Medical Conditions or Safety Concerns. Roll Left & Right (QC): 1 Sit to Lying (QC): 1 Lying to Sitting/Side of Bed(Q: 1 Attempted to sit to the side of the bed and she got about 80% of the way but could not sit completely and her O2 dropped to low 80's and assist of 2 to lay down and scoot up in bed. Assist of 2 for supine to sit also. Weight Bearing Right Lower Extremity: Right Full Weight Bearing Left Lower Extremity: Left Full Weight Bearing Exercises Supine Ex: Ankle pumps, Quad Set, Glut sets, Heel Slides Supine Reps: 20 Treatments LE exercise, supine <-> sit Assessment Current Status: Poor Progress patient continues to decline in functional mobility, cannot tolerate much activity and keep O2 to acceptable levels. PT Paperboard Box Maker Goals Paperboard Box Maker Goals PT Paperboard Box Maker Goals Time Frame: Aug 26, 2021 Roll Left & Right (QC): 3 (Chemo) Sit to Lying (QC): 3 (modA) Lying-Sitting on Side/Bed(QC): 3 (modA) Sit to Stand (QC): 3 (modA) Chair/Auo-nq-Rlsio Xfer(QC): 3 (modA) PT Plan Problem List Problem List: Activity Tolerance, Functional Strength, Safety, Balance, Gait, Transfer, Bed Mobility, ROM Treatment/Plan Treatment Plan: Continue Plan of Care Treatment Plan: Bed Mobility, Education, Functional Activity Ron, Functional Strength, Group Therapy, Gait, Safety, Therapeutic Exercise, Transfers Treatment Duration: Aug 26, 2021 Frequency: 6 times per week Estimated Hrs Per Day: .25 hour per day Patient and/or Family Agrees t: Yes Safety Risks/Education Patient Education: Correct Positioning, Safety Issues Teaching Recipient: Patient Teaching Methods: Demonstration, Discussion Response to Teaching: Reinforcement Needed Time/GCodes Time In: 1110 Time Out: 1121 Total Billed Treatment Time: 11 Total Billed Treatment 1 visit EX CHARISMA BARLOW PT August 20, 2021 11:32
[2021-08-20] MEDS: ENOXAPARIN 60 MG/0.6 ML (LOVENOX) SYR SC SCH ×2 (12:46→23:45)
--- NOTE | 2021-08-20 15:31 | Progress Note ---
Subjective Subjective/Events-last exam Afebrile, continues to require 100% FiO2 when on vapotherm, trialled NC yesterady and was on 10 lpm for a brief period, but desaturated and required higher level again. Objective Exam Last Set of Vital Signs Vital Signs Date Time Temp Pulse Resp B/P (MAP) Pulse Ox O2 Delivery O2 Flow Rate FiO2 08/20/21 14:58 70 90 08/20/21 14:53 Vapotherm 40.00 100 08/20/21 14:00 23 136/87 (103) 08/20/21 13:13 36.1 Capillary Refill : Less Than 3 Seconds I&O Intake and Output 08/20/21 00:00 Intake Total 1122 ml Output Total 2500 ml Balance -1378 ml Intake Oral 922 ml IV Total 200 ml Output Urine Total 2500 ml General: Alert, Mild Distress Psych/Mental Status: Mental Status NL, Mood NL (appropriately tearful when discussing situation) Results/Procedures Lab Laboratory Tests 08/19/21 20:17: Glucometer 415*H 08/20/21 05:11: White Blood Count 16.3H, Red Blood Count 3.79L, Hemoglobin 9.9L, Hematocrit 33L, Mean Corpuscular Volume 87, Mean Corpuscular Hemoglobin 26, Mean Corpuscular Hemoglobin Concent 30L, Red Cell Distribution Width 16.6H, Platelet Count 461H, Mean Platelet Volume 9.8, Immature Granulocyte % (Auto) 1, Neutrophils (%) (Auto) 81H, Lymphocytes (%) (Auto) 11L, Monocytes (%) (Auto) 6, Eosinophils (%) (Auto) 0, Basophils (%) (Auto) 0, Neutrophils # (Auto) 13.2H, Lymphocytes # (Auto) 1.8, Monocytes # (Auto) 1.0, Eosinophils # (Auto) 0.1, Basophils # (Auto) 0.1, Immature Granulocyte # (Auto) 0.2H, Sodium Level 137, Potassium Level 4.4, Chloride Level 88L, Carbon Dioxide Level 36H, Anion Gap 13, Blood Urea Nitrogen 27H, Creatinine 1.20, Estimat Glomerular Filtration Rate 50, BUN/Creatinine Ratio 23, Glucose Level 408*H, Calcium Level 9.3, Corrected Calcium 10.0, Phosphorus Level 3.2, Magnesium Level 1.9, Total Bilirubin 0.5, Aspartate Amino Transf (AST/SGOT) 21, Alanine Aminotransferase (ALT/SGPT) 20, Alkaline Phosphatase 91, Total Protein 7.9, Albumin 3.1L 08/20/21 10:27: Glucometer 318H Microbiology 08/18/21 Blood Culture - Preliminary, Resulted No growth 08/03/21 MRSA Screen - Final, Complete MRSA not isolated Assessment/Plan Assessment/Plan (1) Sepsis Status: Acute Assessment & Plan: Suspected to be secondary to UTI. LA normal on admit. Has had persistent respiratory failure however. 08/17 zosyn started per Danielle given worsening respiratory status (2) Acute and chronic respiratory failure Status: Acute Assessment & Plan: Had some initial improvement, but very slow progress, plan was to send to LTACH, however, she has now persistently worsening hypoxia with higher FiO2 need. CXR signs of pulmonary edema, she is on lasix BID. Echo with normal EF. Continue bipap, lasix and appreciate Danielle ICU recommendations. 08/18 able to wean FiO2 down to 55%, will try going back on vapotherm this morning. 08/19 continuing to attempt to wean supplemental oxygen 08/20 remains on FiO2 100% and intermittently bipap in spite of lasix, Zosyn and steroids, see goals of care discussion. (3) Hypothyroidism Status: Chronic Assessment & Plan: Home levothyroxine (4) Thrombocytosis Status: Acute Assessment & Plan: Likely secondary to inflammation/sepsis. (5) Leukocytosis Status: Acute (6) Obesity hypoventilation syndrome Status: Chronic Assessment & Plan: CPAP at home prior to admit, now requiring bipap significant portion of the time secondary to acute on chronic respiratory failure. (7) COPD (chronic obstructive pulmonary disease) Status: Chronic Assessment & Plan: 08/19 wheezing today, will add prednisone Qualifiers: Qualified Codes: J44.1 - Chronic obstructive pulmonary disease with (acute) exacerbation (8) Diabetes Status: Chronic Assessment & Plan: On scheduled and sliding scale insulin. Will hold linagliptan given no clear evidence of benefit with insulin and DPP4 inhibitor. 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 Cardiology consulted, appreciate recommendations. Qualifiers: (10) Chronic blood loss anemia Status: Chronic Assessment & Plan: After severe GI bleed in Mar 2020, remains stable but low. (11) Atrial fibrillation Status: Chronic Assessment & Plan: Cardiology consulted, appreciate recommendations. Cannot tolerate full anticoagulation due to history of severe GI bleed. (12) Urinary tract infection Status: Resolved Assessment & Plan: s/p 7 doses of ceftriaxone. (13) Hyperlipidemia Status: Chronic (14) Obesities, morbid Status: Chronic (15) DVT prophylaxis Status: Acute Assessment & Plan: Enoxaparin (16) Discharge planning issues Status: Acute Assessment & Plan: Rediscussed code status today (08/18) discussed the prolonged course and suspected poor outcome of code or intubation and she states she wants to continue to fight and have all measures done, she says she will work with PT today as her respiratory status is improved some. 08/19- only able to do heel pumps with PT 08/20- reported they "almost" were able to get her sitting up (17) Goals of care, counseling/discussion Status: Acute Assessment & Plan: Met with patient and her along with manager social services to discuss current situation and goals of care. Given her extremely high oxygen requirements, we are unable to transfer her to another facility, and she would really like to go home, but discussed that even going home with hospice is not likely to be possible at this time due to her high FiO2 requirement. Confirmed with [facility] ICU physician we have maximized medical treatment for her respiratory failure and discussed this with patient, who expressed understanding but is also understandably tearful about discussing end of life care. She also asked about nursing facility, but again her FiO2 requirement precludes this. Discussed if she chooses to pursue comfort goals and does not quickly, but is able to be somewhat stabilized on lower amount of oxygen, may at that time be able to consider working toward hospice at a facility or home. She states she is not afraid of dying, but doesn't want to leave her alone. She would like to continue current care and discuss further with her . ANA LUISA JOHNSON MD August 20, 2021 15:31
[2021-08-20] MEDS: guaiFENesin/DM (ROBITUSSIN DM) 10 ML UDC PO PRN (16:31)
--- NOTE | 2021-08-20 16:39 | Tele-ICU Progress Note ---
Subjective Date Seen by a Provider: August 20, 2021 Time Seen by a Provider: 11:03 Subjective/Events-last exam ( Tele-ICU Physician , Progress Note ) Available chart/ vitals / labs / Images reviewed Video assessment done using teleICU camera, rest of exam as per RN Discussed with RN , EXAM PER RN Events overnight : Afebrile FiO2 - VT I/O = neg Drips: Pressors: , hemodynamically stable Consultants: cassie Hospital course: Pt is a 66 y/o female, direct admit from an outside hospital. Pt found to have Sepsis-UTI and resp failure, requiring Bipap therpy. Pt transafered for highte level of care with ICU capabilities. 08/04 - 14/11 50% , 500 rr 26 08/05 BIPAP 14/11 30 %rr 30 tv 400 (08/10) READMIT from floor for acute resp failure - BIPAP + lasix 08/17 - levo , zosyn 08/20 - off pressors A/P Acute resp failure 08/04 NIPPV 14/11 50% , 500 rr 26- wenaed off --> trnsfered to med floor on high flow 02 10 L and nocturnal Bipap 40 % 08/10 - acute resp failure - BIPAP + lasix --> VT 45 % 70% 08/14 - BiPAP at night. Vapotherm 30 L 85 % during the day - cont doiresis LTAC planned 08/17 - BIPAP 75 % 14/01 rr 23 tv tv - 08/17 - levo , zosyn added 08/19 - VT 40L 65% -08/19 -off levo , removed central line , BIPAP , failed VT 08/20 VT 40 L 100% Shock - on levo on - will repeatt cx ( from line , sputum - OFF LEVO 08/19 -zosyn started - , consider vanco to add ( PCT trend down , if rising - add vanco - cortisol level 20 on 08/18 Acute resp failure - cont diuresis - BIPAP , failed VT yest - > will try today again - steroids PO started on 08/19 CAD, s/p stenting - cont to monitor - ECHO - EF 55% - RVSP 40, , PA 20-25mmHg H/o Afib- in sinus now - iftikhar 60 q12 ( proph -not on AC ( contraindicated with previous bleed as per chart DM II - ISS Anemia - stable ISABELA/ [facility] - will need to cont on nocturnal bgiap ( has CPAP at home and 3 L o2 Anxiety - Xanax and prn ativan Severe obesity, BMI 74 Lines : R IJ 08/03 - self removed 08/19 - Central Line Necessity Reviewed) Mack: + OG: Nutrition: po Analgesia: Anxiety/ delirium Xanax and prn ativan VTE Prophylaxis: - iftikhar 60 q12 Stress Ulcer Prophylaxis: PO Plans in collaboration with bedside consultants and IM MDs. Discussed with RN to reach out if any questions or concerns A total of 31 minutes of critical care time was devoted to this patient today, required to treat and/or prevent further deterioration of critical care condition ( as above Sepsis Event Evaluation Height, Weight, BMI Height: 5'5.00" Weight: 380lbs. 0.0oz. [id number]; 71.42 BMI Method: Exam Exam Patient acknowledged, consented, and participated in this virtual visit which was conducted using real time audio/video Vital Signs Date Time Temp Pulse Resp B/P (MAP) Pulse Ox O2 Delivery O2 Flow Rate FiO2 08/20/21 15:00 73 31 97 NIV Bilevel 55.00 08/20/21 14:58 70 90 08/20/21 14:53 91 Vapotherm 40.00 100 08/20/21 14:00 68 23 136/87 (103) 94 NIV Bilevel 55.00 08/20/21 13:13 36.1 08/20/21 13:00 70 18 90 NIV Bilevel 55.00 08/20/21 13:00 70 08/20/21 12:00 75 24 93 NIV Bilevel 55.00 08/20/21 11:00 69 20 165/69 (101) 98 NIV Bilevel 55.00 08/20/21 10:11 90 Vapotherm 40.00 100 08/20/21 10:00 75 23 151/78 (102) 97 NIV Bilevel 55.00 08/20/21 09:00 73 11 154/76 (102) 99 NIV Bilevel 55.00 08/20/21 08:53 98 Vapotherm 40.00 100 08/20/21 08:00 68 29 112/93 (99) 100 NIV Bilevel 55.00 08/20/21 07:37 36.0 08/20/21 07:04 94 Vapotherm 40.00 100 08/20/21 07:00 70 08/20/21 07:00 66 28 155/68 (97) 98 NIV Bilevel 55.00 08/20/21 06:00 60 22 125/57 (79) 91 NIV Bilevel 55.00 08/20/21 05:00 63 22 129/60 (83) 94 NIV Bilevel 55.00 08/20/21 04:00 59 18 112/54 (73) 92 NIV Bilevel 55.00 08/20/21 04:00 96 Vapotherm 40.00 100 08/20/21 03:38 36.2 08/20/21 03:00 59 18 105/44 (64) 92 NIV Bilevel 55.00 08/20/21 02:33 64 25 92 60.00 08/20/21 02:00 61 17 113/53 (73) 91 NIV Bilevel 55.00 08/20/21 01:00 64 19 122/56 (78) 90 NIV Bilevel 55.00 08/20/21 01:00 64 08/20/21 00:00 96 Vapotherm 40.00 100 08/20/21 00:00 65 23 114/52 (72) 93 NIV Bilevel 55.00 08/19/21 23:33 36.6 08/19/21 23:00 67 24 112/48 (69) 94 NIV Bilevel 55.00 08/19/21 22:32 71 31 90 65.00 08/19/21 22:29 36.5 08/19/21 22:00 75 25 124/56 (78) 96 Vapotherm 100.00 40.00 08/19/21 21:00 80 20 152/72 (98) 95 Vapotherm 100.00 40.00 08/19/21 20:00 36.4 08/19/21 20:00 78 17 155/74 (101) 94 Vapotherm 100.00 40.00 08/19/21 20:00 96 Vapotherm 40.00 100 08/19/21 19:17 97 Vapotherm 40.00 100 08/19/21 19:00 80 08/19/21 19:00 80 17 137/65 (89) 97 Vapotherm 100.00 40.00 08/19/21 18:00 79 13 141/77 (98) 92 NIV Bilevel 55.00 08/19/21 17:00 73 26 105/66 (79) 91 NIV Bilevel 55.00 I & O 08/20/21 07:00 Intake Total 1122 ml Output Total 2425 ml Balance -1303 ml Height & Weight Height: 5'5.00" Weight: 380lbs. 0.0oz. [id number]; 71.42 BMI Method: General Appearance: No Apparent Distress, Obese HEENT: PERRL/EOMI, Moist Mucous Membranes Neck: Full Range of Motion, Normal Inspection Respiratory: Lungs Clear, No Accessory Muscle Use, No Respiratory Distress Cardiovascular: Regular Rate, Rhythm, No Gallop, No Murmur Capillary Refill: Less Than 3 Seconds Extremity: Other Neurologic/Psychiatric: Alert, Oriented x3 Skin: Warm/Dry Lymphatic: No Adenopathy Results Lab Laboratory Tests 08/19/21 04:25 08/20/21 05:11 Assessment/Plan Assessment/Plan ` JOSSIE RUBI MD August 20, 2021 16:39
[2021-08-20] MEDS: lisINopril 5 MG (PRINIVIL) TABLET PO SCH (20:31)
[2021-08-21] VITALS (26 sets, daily range): BP systolic 107–165; BP diastolic 48–94
[2021-08-21] MEDS: PIPERACILLIN SODIUM/TAZOBACTAM 4.5 GM in NS (IVPB) 100 ML IV SCH ×3 (02:39→18:40)
[2021-08-21] MEDS: RT-ALBUTEROL/IPRATROPIUM 3 ML (DUONEB) VIAL INH SCH ×6 (02:48→22:51)
[2021-08-21] MEDS: ALPRAZolam 0.5 MG (XANAX) TAB PO SCH ×4 (04:50→20:23)
[2021-08-21] MEDS: NOREPINEPHRINE 8 MG/250 ML 250 ML IV SCH ×3 (04:51→16:48)
[2021-08-21 05:09] LABS: BASOPHILS # (AUTO) 0.1 10^3/uL (0.0-0.1); BASOPHILS % (AUTO) 0 % (0-10); EOSINOPHILS # (AUTO) 0.1 10^3/uL (0.0-0.3); EOSINOPHILS % (AUTO) 1 % (0-10); HEMATOCRIT 34 % (35-52); HEMOGLOBIN 9.9 g/dL (11.5-16.0); LYMPHOCYTES # (AUTO) 2.6 10^3/uL (1.0-4.0); LYMPHOCYTES % (AUTO) 14 % (12-44); MEAN CORPUSCULAR HEMOGLOBIN 26 pg (25-34); MEAN CORPUSCULAR HGB CONC 29 g/dL (32-36); MEAN CORPUSCULAR VOLUME 88 fL (80-99); MEAN PLATELET VOLUME 9.9 fL (9.0-12.2); MONOCYTES # (AUTO) 1.2 10^3/uL (0.0-1.0); MONOCYTES % (AUTO) 6 % (0-12); NEUTROPHILS # (AUTO) 14.2 10^3/uL (1.8-7.8); NEUTROPHILS % (AUTO) 77 % (42-75); PLATELET COUNT 471 10^3/uL (130-400); WHITE BLOOD COUNT 18.3 10^3/uL (4.3-11.0)
[2021-08-21 05:24] LABS: ALBUMIN 3.1 GM/DL (3.2-4.5); POTASSIUM 3.9 MMOL/L (3.6-5.0)
[2021-08-21 05:25] LABS: CALCIUM 9.5 MG/DL (8.5-10.1)
[2021-08-21 05:27] LABS: TOTAL PROTEIN 7.7 GM/DL (6.4-8.2)
[2021-08-21] MEDS: KCL 20 MEQ TAB (K-DUR) PO SCH (05:28)
[2021-08-21] MEDS: POTASSIUM CL 10MEQ/50ML IVPB 50 ML IV SCH (05:28)
[2021-08-21] MEDS: MAGNESIUM 1 GM/100 ML IVPB 100 ML IV SCH (05:28)
[2021-08-21 05:29] LABS: BILIRUBIN,TOTAL 0.5 MG/DL (0.1-1.0)
[2021-08-21 05:30] LABS: CREATININE SERUM 1.05 MG/DL (0.60-1.30); PHOSPHORUS 2.8 MG/DL (2.3-4.7)
[2021-08-21 05:33] LABS: MAGNESIUM 1.9 MG/DL (1.6-2.4)
[2021-08-21] MEDS: inSUlin ASPART (NovoLOG) 1 UNIT/0.01 ML (CHARGE PER UNIT) SC SCH ×7 (06:02→21:51)
[2021-08-21] MEDS: GABAPENTIN 600 MG (NEURONTIN) TAB PO SCH ×3 (06:02→22:11)
[2021-08-21] MEDS: predniSONE 20 MG TAB PO SCH (06:03)
[2021-08-21] MEDS: LEVOTHYROXINE 100 MCG (LEVOTHROID) TAB PO SCH (06:03)
[2021-08-21] MEDS: FUROSEMIDE 40 MG (LASIX) TAB PO SCH ×2 (06:03→17:09)
[2021-08-21] MEDS: LEVOTHYROXINE 75 MCG (LEVOTHROID) TABLET PO SCH (06:03)
[2021-08-21] MEDS: MULTIVIT W/MINERALS TAB (THERAGRAN M) PO SCH (06:03)
--- NOTE | 2021-08-21 08:43 | Cardiology Progress Note ---
Subjective Date Seen by Provider: August 21, 2021 Time Seen by Provider: 08:42 Subjective/Events-last exam Patient was seen at bedside, laying down comfortably, feeling better Eating breakfast. Review of Systems General: No Chills, No Night Sweats; Fatigue; No Malaise, No Appetite, No Other HEENT: No Head Aches, No Visual Changes, No Ear Pain, No Dysphasia, No Sinus Co ngestion, No Post Nasal Drip, No Sore Throat, No Other Pulmonary: Dyspnea; No Cough, No Pleuritic Chest Pain, No Other Cardiovascular: No: Chest Pain, Palpitations, Orthopnea, Paroxysmal Noc. Dyspnea, Edema, Lt Headedness, Other Objective-Cardiology Exam Last Set of Vital Signs Vital Signs 08/21/21 08/21/21 08/21/21 06:27 07:29 08:00 Temp 36.2 Pulse 75 Resp 29 B/P (MAP) 151/73 (99) Pulse Ox 92 O2 Delivery Vapotherm O2 Flow Rate 90.00 40.00 FiO2 90 I&O Intake and Output 08/21/21 00:00 Intake Total 2100 ml Output Total 3350 ml Balance -1250 ml Intake Oral 2100 ml Output Urine Total 3350 ml General: Alert, Oriented X3, Cooperative, No Acute Distress HEENT: Atraumatic, PERRLA Neck: Supple, No JVD Lungs: Other (expiratory wheezing) Heart: Regular Rate, Normal S1, Normal S2 Abdomen: Normal Bowel Sounds, Soft Extremities: No Clubbing Skin: No Rashes Neuro: Normal Speech Psych/Mental Status: Mental Status NL, Mood NL (appropriately tearful when discussing situation) Results Lab Laboratory Tests 08/21/21 04:30 A/P-Cardiology Admission Diagnosis Urosepsis CAD PAF HTN Assessment/Plan Status post acute respiratory failure, history of chronic respiratory insuffic iency due to chronic CO2 retention and morbid obesity Using BiPAP at night and Vapotherm during the day. Continue to fail weaning off Vapotherm. Managed by eICU and medical team. Urosepsis, improved. Patient was restarted on antibiotics. Managed by medical team. Coronary artery disease with history of stents x2 to the RCA,3.512 mm vision stent in 2009. 3.012 mm vision stent in 2010 with most recent cardiac catheterization in November 2015 revealing patent stents to the RCA with otherwise nonobstructive disease. 2D Echo done 08/05/21 showing EF 60-65%, PA 20-25mmHg. Technically difficult study. Paroxysmal atrial fibrillation, diagnosed April 2019, was hospitalized for A. fib with RVR with tachybradycardia episodes, converted to sinus rhythm, currently in sinus rhythm History of GI bleed on 04/27/2020 requiring blood transfusion. 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 Hyperlipidemia, monitor lipids Diabetes mellitus-managed by primary care physician, continue to monitor Severe obesity, BMI 71 was referred for possible weight loss surgery in the past, however patient has decided against surgery at this time. Bilateral lower extremity pain and swelling-discussed weight loss. Mild bilateral nonobstructive carotid artery stenosis, most recent carotid duplex done in November 2018, continue to monitor. Hypothyroidism, continue to monitor thyroid function test. Obstructive sleep apnea BELLE VERA MD August 21, 2021 08:43
[2021-08-21] MEDS: DOCUSATE SODIUM 100 MG (COLACE) CAP PO SCH ×2 (11:10→20:23)
[2021-08-21] MEDS: amLODIPine 5 MG (NORVASC) TAB PO SCH (11:10)
[2021-08-21] MEDS: PANTOPRAZOLE 20 MG TABLET (PROTONIX) PO SCH ×2 (11:10→20:24)
[2021-08-21] MEDS: SENNOSIDES 8.6 MG (SENOKOT) TAB PO SCH ×2 (11:10→20:24)
[2021-08-21] MEDS: FOLIC ACID 1 MG TAB PO SCH (11:11)
[2021-08-21] MEDS: MICONAZOLE 2% POWDER (DESENEX AF) 90 GM TOP SCH ×2 (11:11→20:27)
[2021-08-21] MEDS: ENOXAPARIN 60 MG/0.6 ML (LOVENOX) SYR SC SCH ×2 (11:12→22:24)
--- NOTE | 2021-08-21 11:15 | Physical Therapy Daily Note ---
PT Daily Note-Current Subjective Patient agrees to PT. Mental Status Patient Orientation: Normal For Age Attachments: Oxygen (vapotherm), Mack Catheter, IV Transfers SCALE: Activities may be completed with or without assistive devices. 1-Lzfepijcad-exwkqkj completes the activity by him/herself with no assistance from a helper. 5-Set-up or Clean-up Assistance-helper sets up or cleans up; patient completes activity. [place] assists only prior to or following the activity. 4-Supervision or Touching Assistance-helper provides verbal cues and/or touching/steadying and/or contact guard assistance as patient completes activity. Assistance may be provided throughout the activity or intermittently. 3-Partial/Moderate Assistance-helper does LESS THAN HALF the effort. [place] lifts, holds or supports trunk or limbs, but provides less than half the effort. 2-Substantial/Maximal Assistance-helper does MORE THAN HALF the effort. [place] lifts or holds trunk or limbs and provides more than half the effort. 3-Oeslcresk-sdvrfl does ALL the effort. Patient does none of the effort to complete the activity. Or, the assistance of 2 or more helpers is required for the patient to complete the activity. If activity was not attempted, code reason: 7-Patient Refused. 9-Not Applicable-not attempted and the patient did not perform the activity before the current illness, exacerbation or injury. 10-Not Attempted due to Environmental Limitations-(lack of equipment, weather restraints, etc.). 88-Not Attempted due to Medical Conditions or Safety Concerns. Weight Bearing Right Lower Extremity: Right Full Weight Bearing Left Lower Extremity: Left Full Weight Bearing Exercises Supine Ex: Ankle pumps, Heel Slides, Straight leg raise, Hip abd/add Supine Reps: 15 (x 2 sets AAROM right LE/AROM left LE) Assessment Patient's SAO2 decreases to 82% with AAROM activity bilateral LE. Patient remains in bed. Increase activity as SAO2 improves PT Usp Goals Federal Mediator Goals PT Federal Mediator Goals Time Frame: Aug 26, 2021 Roll Left & Right (QC): 3 (Chemo) Sit to Lying (QC): 3 (modA) Lying-Sitting on Side/Bed(QC): 3 (modA) Sit to Stand (QC): 3 (modA) Chair/Jpr-ui-Lniyq Xfer(QC): 3 (modA) PT Plan Treatment/Plan Treatment Plan: Continue Plan of Care Treatment Plan: Bed Mobility, Education, Functional Activity Ron, Functional Strength, Group Therapy, Gait, Safety, Therapeutic Exercise, Transfers Treatment Duration: Aug 26, 2021 Frequency: 6 times per week Estimated Hrs Per Day: .25 hour per day Patient and/or Family Agrees t: Yes Time/GCodes Time In: 1055 Time Out: 1107 Total Billed Treatment Time: 12 Total Billed Treatment 1 visit EX 12 min SIL HENRIQUEZ PT August 21, 2021 11:15
[2021-08-21] MEDS ORDERED: acetaZOLAMIDE INJ 500 MG/5 ML (DIAMOX) VIAL IV ONE (11:45)
--- NOTE | 2021-08-21 11:50 | Tele-ICU Progress Note ---
Subjective Date Seen by a Provider: August 21, 2021 Time Seen by a Provider: 11:49 Subjective/Events-last exam ( Tele-ICU Physician , Progress Note ) Available chart/ vitals / labs / Images reviewed Video assessment done using teleICU camera, rest of exam as per RN Discussed with RN , EXAM PER RN Events overnight : Afebrile FiO2 - VT I/O = neg Drips: Pressors: , hemodynamically stable Consultants: cassie Hospital course: Pt is a 66 y/o female, direct admit from an outside hospital. Pt found to have Sepsis-UTI and resp failure, requiring Bipap therpy. Pt transafered for highte level of care with ICU capabilities. 08/04 - 14/11 50% , 500 rr 26 08/05 BIPAP 14/11 30 %rr 30 tv 400 (08/10) READMIT from floor for acute resp failure - BIPAP + lasix 08/17 - levo , zosyn 08/20 - off pressors A/P Acute resp failure 08/04 NIPPV 14/11 50% , 500 rr 26- wenaed off --> trnsfered to med floor on high flow 02 10 L and nocturnal Bipap 40 % 08/10 - acute resp failure - BIPAP + lasix --> VT 45 % 70% 08/14 - BiPAP at night. Vapotherm 30 L 85 % during the day - cont doiresis LTAC planned 08/17 - BIPAP 75 % 14/01 rr 23 tv tv - 08/17 - levo , zosyn added 08/19 - VT 40L 65% -08/19 -off levo , removed central line , BIPAP , failed VT 08/20 VT 40 L 100% 08/21 - Shock - on levo on - will repeatt cx ( from line , sputum - OFF LEVO 08/19 -zosyn - - , - cortisol level 20 on 08/18 Acute resp failure - CONT DIUREIS, KEEP NEGATIVE VOLUME STATUS , RISING cO2 - WILL GIVE ADDITIONAL DOSE OF DIAMOX TODAY - BIPAP ,/VT DAY TIME - SEEMS SLIGHTLY BETTER - CONTINUE - steroids PO started on 08/19 ID --zosyn - - , PCT trend down , if rising - add vanco CAD, s/p stenting - cont to monitor - ECHO - EF 55% - RVSP 40, , PA 20-25mmHg H/o Afib- in sinus now - iftikhar 60 q12 ( proph -not on AC ( contraindicated with previous bleed as per chart DM II - ISS Anemia - stable ISABELA/ [facility] - will need to cont on nocturnal bgiap ( has CPAP at home and 3 L o2 Anxiety - Xanax and prn ativan Severe obesity, BMI 74 Lines : R IJ 08/03 - self removed 08/19 - Central Line Necessity Reviewed) Mack: + OG: Nutrition: po Analgesia: Anxiety/ delirium Xanax and prn ativan VTE Prophylaxis: - iftikhar 60 q12 Stress Ulcer Prophylaxis: PO Plans in collaboration with bedside consultants and IM MDs. Discussed with RN to reach out if any questions or concerns A total of 31 minutes of critical care time was devoted to this patient today, required to treat and/or prevent further deterioration of critical care condition ( as above Sepsis Event Evaluation Height, Weight, BMI Height: 5'5.00" Weight: 380lbs. 0.0oz. [id number]; 71.42 BMI Method: Exam Exam Patient acknowledged, consented, and participated in this virtual visit which was conducted using real time audio/video Vital Signs Date Time Temp Pulse Resp B/P (MAP) Pulse Ox O2 Delivery O2 Flow Rate FiO2 08/21/21 11:00 75 138/63 (88) 90 Vapotherm 90.00 40.00 08/21/21 10:23 90 Vapotherm 35.00 85 08/21/21 10:19 92 Vapotherm 35.00 90 08/21/21 10:00 72 23 122/60 (80) 91 Vapotherm 90.00 40.00 08/21/21 09:00 74 27 135/64 (87) 92 Vapotherm 90.00 40.00 08/21/21 08:00 75 29 151/73 (99) 92 Vapotherm 90.00 40.00 08/21/21 07:29 36.2 08/21/21 07:00 73 08/21/21 07:00 68 19 142/65 (90) 94 Vapotherm 90.00 40.00 08/21/21 06:38 Vapotherm 90.00 40.00 08/21/21 06:27 93 Vapotherm 40.00 90 08/21/21 06:00 61 22 130/56 (80) 91 NIV Bilevel 45.00 08/21/21 05:00 59 22 121/59 (79) 91 NIV Bilevel 45.00 08/21/21 04:00 65 25 111/51 (71) 91 NIV Bilevel 45.00 08/21/21 04:00 96 NIV Bilevel 55 08/21/21 03:00 74 24 121/57 (78) 96 NIV Bilevel 45.00 08/21/21 02:49 65 23 94 45.00 08/21/21 02:00 54 22 133/66 (88) NIV Bilevel 55.00 08/21/21 01:00 53 08/21/21 01:00 53 21 128/58 (81) NIV Bilevel 55.00 08/21/21 00:00 96 NIV Bilevel 55 08/21/21 00:00 55 21 107/48 (67) NIV Bilevel 55.00 08/20/21 23:00 71 23 115/52 (73) 90 NIV Bilevel 55.00 08/20/21 22:20 36.1 08/20/21 22:10 73 32 92 55.00 08/20/21 22:00 66 22 131/58 (82) 91 NIV Bilevel 55.00 08/20/21 21:00 78 22 128/55 (79) 92 Vapotherm 90.00 40.00 08/20/21 20:00 98 Vapotherm 40.00 100 08/20/21 20:00 75 21 93 Vapotherm 90.00 40.00 08/20/21 19:37 36.1 08/20/21 19:00 72 08/20/21 19:00 72 21 94 Vapotherm 100.00 40.00 08/20/21 18:59 95 Vapotherm 40.00 100 08/20/21 18:00 77 20 143/69 (93) 89 NIV Bilevel 55.00 08/20/21 17:00 73 24 139/75 (96) 94 NIV Bilevel 55.00 08/20/21 16:00 36.8 08/20/21 16:00 98 Vapotherm 40.00 100 08/20/21 16:00 77 19 182/85 (117) 93 NIV Bilevel 55.00 08/20/21 15:00 73 31 97 NIV Bilevel 55.00 08/20/21 14:58 70 90 08/20/21 14:53 91 Vapotherm 40.00 100 08/20/21 14:00 68 23 136/87 (103) 94 NIV Bilevel 55.00 08/20/21 13:13 36.1 08/20/21 13:00 70 18 90 NIV Bilevel 55.00 08/20/21 13:00 70 08/20/21 12:00 75 24 93 NIV Bilevel 55.00 08/20/21 12:00 98 Vapotherm 40.00 100 I & O 08/21/21 07:00 Intake Total 2100 ml Output Total 3900 ml Balance -1800 ml Height & Weight Height: 5'5.00" Weight: 380lbs. 0.0oz. [id number]; 71.42 BMI Method: General Appearance: No Apparent Distress, Obese HEENT: PERRL/EOMI, Moist Mucous Membranes Neck: Full Range of Motion, Normal Inspection Respiratory: Lungs Clear, No Accessory Muscle Use, No Respiratory Distress Cardiovascular: Regular Rate, Rhythm, No Gallop, No Murmur Capillary Refill: Less Than 3 Seconds Extremity: Other Neurologic/Psychiatric: Alert, Oriented x3 Skin: Warm/Dry Lymphatic: No Adenopathy Results Lab Laboratory Tests 08/20/21 05:11 08/21/21 04:30 Assessment/Plan Assessment/Plan ` JOSSIE RUBI MD August 21, 2021 11:50
--- NOTE | 2021-08-21 12:54 | Progress Note ---
Subjective Subjective/Events-last exam She says she feels pretty good today, is in bed with HOB elevated and talking on the phone when I came in. FiO2 decreased to 90%, but she is already decreasing saturation to the upper 80s while talking. She reports she wants to keep on fighting. However, discussed code status and she does say if an acute event occurs she would not want resuscitated, she does not believe it would work and she would prefer to be comfortable in that case. Objective Exam Last Set of Vital Signs Vital Signs Date Time Temp Pulse Resp B/P (MAP) Pulse Ox O2 Delivery O2 Flow Rate FiO2 08/21/21 11:00 75 138/63 (88) 90 Vapotherm 90.00 40.00 08/21/21 10:23 85 08/21/21 10:00 23 08/21/21 07:29 36.2 Capillary Refill : Less Than 3 Seconds I&O Intake and Output 08/21/21 00:00 Intake Total 2100 ml Output Total 3350 ml Balance -1250 ml Intake Oral 2100 ml Output Urine Total 3350 ml General: Alert, No Acute Distress Lungs: Other (wheezing) Heart: Regular Rate Abdomen: Normal Bowel Sounds, Soft Neuro: Normal Speech Psych/Mental Status: Mood NL Results/Procedures Lab Laboratory Tests 08/20/21 15:24: Glucometer 289H 08/20/21 20:25: Glucometer 333H 08/21/21 04:30: White Blood Count 18.3H, Red Blood Count 3.87, Hemoglobin 9.9L, Hematocrit 34L, Mean Corpuscular Volume 88, Mean Corpuscular Hemoglobin 26, Mean Corpuscular Hemoglobin Concent 29L, Red Cell Distribution Width 16.5H, Platelet Count 471H, Mean Platelet Volume 9.9, Immature Granulocyte % (Auto) 1, Neutrophils (%) (Auto) 77H, Lymphocytes (%) (Auto) 14, Monocytes (%) (Auto) 6, Eosinophils (%) (Auto) 1, Basophils (%) (Auto) 0, Neutrophils # (Auto) 14.2H, Lymphocytes # (Auto) 2.6, Monocytes # (Auto) 1.2H, Eosinophils # (Auto) 0.1, Basophils # (Auto) 0.1, Immature Granulocyte # (Auto) 0.2H, Sodium Level 141, Potassium Level 3.9, Chloride Level 90L, Carbon Dioxide Level 38H, Anion Gap 13, Blood Urea Nitrogen 26H, Creatinine 1.05, Estimat Glomerular Filtration Rate 58, BUN/Creatinine Ratio 25, Glucose Level 328H, Calcium Level 9.5, Corrected Calcium 10.2H, Phosphorus Level 2.8, Magnesium Level 1.9, Total Bilirubin 0.5, Aspartate Amino Transf (AST/SGOT) 19, Alanine Aminotransferase (ALT/SGPT) 19, Alkaline Phosphatase 93, Total Protein 7.7, Albumin 3.1L 08/21/21 10:20: Glucometer 333H Microbiology 08/18/21 Blood Culture - Preliminary, Resulted No growth 08/03/21 MRSA Screen - Final, Complete MRSA not isolated Assessment/Plan Assessment/Plan (1) Sepsis Status: Acute Assessment & Plan: Suspected to be secondary to UTI. LA normal on admit. Has had persistent respiratory failure however. 08/17 zosyn started per Danielle given worsening respiratory status (2) Acute and chronic respiratory failure Status: Acute Assessment & Plan: Had some initial improvement, but very slow progress, plan was to send to LTACH, however, she has now persistently worsening hypoxia with higher FiO2 need. CXR signs of pulmonary edema, she is on lasix BID. Echo with normal EF. Continue bipap, lasix and appreciate Danielle ICU recommendations. 08/18 able to wean FiO2 down to 55%, will try going back on vapotherm this morning. 08/19 continuing to attempt to wean supplemental oxygen 08/20 remains on FiO2 100% and intermittently bipap in spite of lasix, Zosyn and steroids, see goals of care discussion. 08/21 she wants to continue current treatments, continuing to attempt to wean FiO2, she is able to maintain on 55% FiO2 when on bipap, but cannot tolerate lower oxygen levels by vapotherm or nasal cannula. (3) Hypothyroidism Status: Chronic Assessment & Plan: Home levothyroxine (4) Thrombocytosis Status: Acute Assessment & Plan: Likely secondary to inflammation/sepsis. (5) Leukocytosis Status: Acute (6) Obesity hypoventilation syndrome Status: Chronic Assessment & Plan: CPAP at home prior to admit, now requiring bipap significant portion of the time secondary to acute on chronic respiratory failure. (7) COPD (chronic obstructive pulmonary disease) Status: Chronic Assessment & Plan: 08/19 wheezing today, will add prednisone Qualifiers: Qualified Codes: J44.1 - Chronic obstructive pulmonary disease with (acute) exacerbation (8) Diabetes Status: Chronic Assessment & Plan: On scheduled and sliding scale insulin. Will hold linagliptan given no clear evidence of benefit with insulin and DPP4 inhibitor. 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 Cardiology consulted, appreciate recommendations. Qualifiers: (10) Chronic blood loss anemia Status: Chronic Assessment & Plan: After severe GI bleed in Mar 2020, remains stable but low. (11) Atrial fibrillation Status: Chronic Assessment & Plan: Cardiology consulted, appreciate recommendations. Cannot tolerate full anticoagulation due to history of severe GI bleed. (12) Urinary tract infection Status: Resolved Assessment & Plan: s/p 7 doses of ceftriaxone. (13) Hyperlipidemia Status: Chronic (14) Obesities, morbid Status: Chronic (15) DVT prophylaxis Status: Acute Assessment & Plan: Enoxaparin (16) Discharge planning issues Status: Acute Assessment & Plan: Rediscussed code status today (08/18) discussed the prolonged course and suspected poor outcome of code or intubation and she states she wants to continue to fight and have all measures done, she says she will work with PT today as her respiratory status is improved some. 08/19- only able to do heel pumps with PT 08/20- reported they "almost" were able to get her sitting up (17) Goals of care, counseling/discussion Status: Acute Assessment & Plan: Met with patient and her along with social work specialist to discuss current situation and goals of care. Given her extremely high oxygen requirements, we are unable to transfer her to another facility, and she would really like to go home, but discussed that even going home with hospice is not likely to be possible at this time due to her high FiO2 requirement. Confirmed with Danielle ICU physician we have maximized medical treatment for her respiratory failure and discussed this with patient, who expressed understanding but is also understandably tearful about discussing end of life care. She also asked about nursing facility, but again her FiO2 requirement precludes this. Discussed if she chooses to pursue comfort goals and does not quickly, but is able to be somewhat stabilized on lower amount of oxygen, may at that time be able to consider working toward hospice at a facility or home. She states she is not afraid of dying, but doesn't want to leave her alone. She would like to continue current care and discuss further with her . 08/21 for now she wants to continue current care, but does want to change her code status, which was done. ANA LUISA JOHNSON MD August 21, 2021 12:54
[2021-08-21] MEDS ORDERED: WATER (STERILE) FOR INJECTION 10 ML ONE (14:17)
[2021-08-21] MEDS: inSUlin (REGULAR) HUMAN 1 UNIT/0.01 ML (CHARGE PER UNIT) SC PRN (17:09)
[2021-08-21] MEDS: guaiFENesin/DM (ROBITUSSIN DM) 10 ML UDC PO PRN ×2 (17:10→22:11)
[2021-08-21] MEDS: lisINopril 5 MG (PRINIVIL) TABLET PO SCH (20:23)
[2021-08-22] VITALS (27 sets, daily range): BP systolic 101–148; BP diastolic 46–78
[2021-08-22] MEDS: ALPRAZolam 0.5 MG (XANAX) TAB PO SCH ×7 (00:56→23:54)
[2021-08-22] MEDS: RT-ALBUTEROL/IPRATROPIUM 3 ML (DUONEB) VIAL INH SCH ×6 (02:15→22:46)
[2021-08-22] MEDS: PIPERACILLIN SODIUM/TAZOBACTAM 4.5 GM in NS (IVPB) 100 ML IV SCH ×2 (04:06→11:38)
[2021-08-22 05:48] LABS: BASOPHILS # (AUTO) 0.1 10^3/uL (0.0-0.1); BASOPHILS % (AUTO) 1 % (0-10); EOSINOPHILS # (AUTO) 0.3 10^3/uL (0.0-0.3); EOSINOPHILS % (AUTO) 2 % (0-10); HEMATOCRIT 34 % (35-52); HEMOGLOBIN 9.9 g/dL (11.5-16.0); LYMPHOCYTES # (AUTO) 3.3 10^3/uL (1.0-4.0); LYMPHOCYTES % (AUTO) 19 % (12-44); MEAN CORPUSCULAR HEMOGLOBIN 26 pg (25-34); MEAN CORPUSCULAR HGB CONC 29 g/dL (32-36); MEAN CORPUSCULAR VOLUME 88 fL (80-99); MEAN PLATELET VOLUME 9.8 fL (9.0-12.2); MONOCYTES % (AUTO) 6 % (0-12); NEUTROPHILS # (AUTO) 12.7 10^3/uL (1.8-7.8); NEUTROPHILS % (AUTO) 72 % (42-75); PLATELET COUNT 481 10^3/uL (130-400); WHITE BLOOD COUNT 17.6 10^3/uL (4.3-11.0)
[2021-08-22] MEDS: NOREPINEPHRINE 8 MG/250 ML 250 ML IV SCH ×4 (06:00→21:52)
[2021-08-22 06:06] LABS: ALBUMIN 3.1 GM/DL (3.2-4.5); POTASSIUM 3.8 MMOL/L (3.6-5.0)
[2021-08-22 06:07] LABS: CALCIUM 9.4 MG/DL (8.5-10.1)
[2021-08-22 06:08] LABS: TOTAL PROTEIN 7.6 GM/DL (6.4-8.2)
[2021-08-22 06:10] LABS: BILIRUBIN,TOTAL 0.5 MG/DL (0.1-1.0)
[2021-08-22 06:12] LABS: PHOSPHORUS 3.3 MG/DL (2.3-4.7)
[2021-08-22 06:15] LABS: MAGNESIUM 1.9 MG/DL (1.6-2.4)
[2021-08-22] MEDS: GABAPENTIN 600 MG (NEURONTIN) TAB PO SCH ×3 (06:30→23:54)
[2021-08-22] MEDS: inSUlin ASPART (NovoLOG) 1 UNIT/0.01 ML (CHARGE PER UNIT) SC SCH ×7 (06:30→21:52)
[2021-08-22] MEDS: LEVOTHYROXINE 75 MCG (LEVOTHROID) TABLET PO SCH (06:30)
[2021-08-22] MEDS: LEVOTHYROXINE 100 MCG (LEVOTHROID) TAB PO SCH (06:30)
[2021-08-22] MEDS: FUROSEMIDE 40 MG (LASIX) TAB PO SCH ×2 (06:30→16:37)
[2021-08-22] MEDS: MULTIVIT W/MINERALS TAB (THERAGRAN M) PO SCH (06:31)
[2021-08-22] MEDS: predniSONE 20 MG TAB PO SCH (06:31)
--- NOTE | 2021-08-22 06:41 | Progress Note - Hospitalist ---
Subjective HPI/CC On Admission Date Seen by Provider: August 22, 2021 Time Seen by Provider: 10:00 Pt doing about the same Maintained on BiPAP Chronic right hip and knee pain She does have pain medication ordered ABG will be ordered She appears to be BIPAP dependent Overall, very poor prognosis Subjective/Events-last exam No major change Vapotherm 40/100 She wants to " continue fighting" and does not want to Eating outside food her brings from the gas station and her sugar is 300s and Dr. Solis and just increased her diabetic diet down to 1800 sharan a day so I will put an order for no outside food Review of Systems General: Fatigue, Malaise Pulmonary: Dyspnea Objective Exam Vital Signs Vital Signs Date Time Temp Pulse Resp B/P (MAP) Pulse Ox O2 Delivery O2 Flow Rate FiO2 08/23/21 06:00 56 20 115/53 (73) 94 NIV Bilevel 60.00 08/23/21 04:00 60 08/23/21 04:00 36.1 Capillary Refill : Less Than 3 Seconds General Appearance: No Apparent Distress, WD/WN, Chronically ill Respiratory: Lungs Clear, Normal Breath Sounds Cardiovascular: Regular Rate, Rhythm Neurologic/Psychiatric: Alert, Oriented x3 Results/Procedures Lab Laboratory Tests 08/23/21 04:59 Patient resulted labs reviewed. Assessment/Plan Assessment and Plan Assess & Plan/Chief Complaint Assessment: Sepsis UTI Super morbid obesity BMI 73 Acute on chronic respiratory failure Obesity hypoventilation syndrome CO2 retention requiring BiPAP Hypertension Hyperlipidemia Diabetes Paroxysmal atrial fibrillation Anticoagulation contraindicated due to life-threatening bleed in the past Hypothyroidism Right hip pain Plan: Supportive care IV antibiotics ICU BiPAP 08/05/21: Monitor closely Transfer to 4th [address] Dr Talamantes right hip pain 08/06/2021: Social work for disposition Poor prognosis due to increased BMI 76 08/07/2021: BiPAP Supportive care Poor prognosis 08/09/2021: Supportive care BiPAP 08/10/2021: Supportive care BiPAP 08/11/2021: Supportive care ICU [place]? 08/12/2021: [place] 08/13/2021: Await [place] Supportive care 08/14: Await [place] 08/22/2021: Supportive care BiPAP and Vapotherm dependent Critical Care Critically Ill Patient Diagnosis/Problems Diagnosis/Problems (1) Sepsis Status: Acute (2) Hypotension Status: Resolved Resolution Date/Time: 04/28/20 @ 13:41 (3) Hypothyroidism Status: Chronic (4) Renal failure (ARF), acute on chronic Status: Resolved (5) Hyperlipidemia Status: Chronic (6) Atrial fibrillation Status: Chronic (7) Coronary artery disease Status: Chronic Qualifiers: Coronary Disease-Associated Artery/Lesion type: [place] artery [place] vs. 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
--- NOTE | 2021-08-22 08:19 | Tele-ICU Progress Note ---
Progress Note video rounds completed 66 y/o female with morbid obesity and hypoxemic respiratory failure on CPAP/BIPAP admitted with urosepsis. Sepsis has improved and now main issue is her respiratory issues. Placement is being arranged, otherwise no acute issue overnight. Focused Exam Height, Weight, BMI Height: 5'5.00" Weight: 380lbs. 0.0oz. [id number]; 71.42 BMI Method: Labs Laboratory Tests 08/22/21 05:33 Results Labs Labs Laboratory Tests 08/21/21 10:20: Glucometer 333H 08/21/21 16:15: Glucometer 402*H 08/21/21 21:09: Glucometer 230H 08/22/21 05:33: White Blood Count 17.6H, Red Blood Count 3.85, Hemoglobin 9.9L, Hematocrit 34L, Mean Corpuscular Volume 88, Mean Corpuscular Hemoglobin 26, Mean Corpuscular Hemoglobin Concent 29L, Red Cell Distribution Width 16.7H, Platelet Count 481H, Mean Platelet Volume 9.8, Immature Granulocyte % (Auto) 1, Neutrophils (%) (Auto) 72, Lymphocytes (%) (Auto) 19, Monocytes (%) (Auto) 6, Eosinophils (%) (Auto) 2, Basophils (%) (Auto) 1, Neutrophils # (Auto) 12.7H, Lymphocytes # (Auto) 3.3, Monocytes # (Auto) 1.0, Eosinophils # (Auto) 0.3, Basophils # (Auto) 0.1, Immature Granulocyte # (Auto) 0.2H, Sodium Level 138, Potassium Level 3.8, Chloride Level 90L, Carbon Dioxide Level 36H, Anion Gap 12, Blood Urea Nitrogen 27H, Creatinine 1.00, Estimat Glomerular Filtration Rate 62, BUN/Creatinine Ratio 27, Glucose Level 212H, Calcium Level 9.4, Corrected Calcium 10.1, Phosphorus Level 3.3, Magnesium Level 1.9, Total Bilirubin 0.5, Aspartate Amino Transf (AST/SGOT) 22, Alanine Aminotransferase (ALT/SGPT) 21, Alkaline Phosphatase 84, Total Protein 7.6, Albumin 3.1L Microbiology 08/18/21 Blood Culture - Preliminary, Resulted No growth 08/03/21 MRSA Screen - Final, Complete MRSA not isolated Results/Procedures Labs Laboratory Tests 08/21/21 04:30 08/22/21 05:33 Patient resulted labs reviewed. ESTEFANY BANKS MD August 22, 2021 08:19
--- NOTE | 2021-08-22 08:53 | Cardiology Progress Note ---
Progress Note-Cardiology Events since last exam Date Seen by Provider: August 22, 2021 Time Seen by Provider: 08:47 Events since last exam We are following her due to her cardiac history in the setting of acute on c hronic respiratory failure. She feels as though her breathing is slowly improving. She denies chest pain, palpitations, syncope, or ankle edema. Certain portions of this document may have been dictated utilizing voice recognition technology. Inherent to this technology, typographical and grammat ical errors may exist. As much as I am diligent to identify and correct these mistakes, some errors may remain in the document. Vitals Last set of Vitals Signs Vital Signs 08/22/21 08/22/21 08/22/21 04:00 07:39 08:00 Temp 36.2 Pulse 69 Resp 27 B/P (MAP) 118/55 (76) Pulse Ox 93 O2 Delivery NIV Bilevel O2 Flow Rate 45.00 FiO2 45 Labs Labs Laboratory Tests 08/22/21 05:33 Exam Vital Signs Vital Signs Date Time Temp Pulse Resp B/P (MAP) Pulse Ox O2 Delivery O2 Flow Rate FiO2 08/22/21 08:00 69 27 118/55 (76) 93 NIV Bilevel 45.00 08/22/21 07:39 36.2 08/22/21 04:00 45 Physical Exam General: Alert. No acute distress. She is morbidly obese. She is wearing high flow oxygen by Vapotherm. Eye: No xanthelasma. HENT: Normocephalic. Neck: Jugular venous pressure does not appear elevated. Respiratory: Lungs have diffuse inspiratory wheezes and otherwise decreased breath sounds. Respirations are non-labored. Breath sounds are equal. Symmetrical chest wall expansion. Cardiovascular: Normal rate. Regular rhythm. Distant S1/S2. No murmur. No gallop. No edema. Gastrointestinal: Soft. Normal bowel sounds. Skin: Warm. Dry. Neurologic: Alert and oriented to person, place, time. Cranial nerves 3-11 grossly intact. Psychiatric: Cooperative. Appropriate mood & affect. Labs Laboratory Tests Test 08/21/21 10:20 08/21/21 16:15 08/21/21 21:09 08/22/21 05:33 Range/Units Glucometer 333 H 402 *H 230 H 70-110 MG/DL White Blood Count 17.6 H 4.3-11.0 10^3/uL Red Blood Count 3.85 3.80-5.11 10^6/uL Hemoglobin 9.9 L 11.5-16.0 g/dL Hematocrit 34 L 35-52 % Mean Corpuscular Volume 88 80-99 fL Mean Corpuscular Hemoglobin 26 25-34 pg Mean Corpuscular Hemoglobin Concent 29 L 32-36 g/dL Red Cell Distribution Width 16.7 H 10.0-14.5 % Platelet Count 481 H 130-400 10^3/uL Mean Platelet Volume 9.8 9.0-12.2 fL Immature Granulocyte % (Auto) 1 % Neutrophils (%) (Auto) 72 42-75 % Lymphocytes (%) (Auto) 19 12-44 % Monocytes (%) (Auto) 6 0-12 % Eosinophils (%) (Auto) 2 0-10 % Basophils (%) (Auto) 1 0-10 % Neutrophils # (Auto) 12.7 H 1.8-7.8 10^3/uL Lymphocytes # (Auto) 3.3 1.0-4.0 10^3/uL Monocytes # (Auto) 1.0 0.0-1.0 10^3/uL Eosinophils # (Auto) 0.3 0.0-0.3 10^3/uL Basophils # (Auto) 0.1 0.0-0.1 10^3/uL Immature Granulocyte # (Auto) 0.2 H 0.0-0.1 10^3/uL Sodium Level 138 135-145 MMOL/L Potassium Level 3.8 3.6-5.0 MMOL/L Chloride Level 90 L 98-107 MMOL/L Carbon Dioxide Level 36 H 21-32 MMOL/L Anion Gap 12 5-14 MMOL/L Blood Urea Nitrogen 27 H 7-18 MG/DL Creatinine 1.00 0.60-1.30 MG/DL Estimat Glomerular Filtration Rate 62 BUN/Creatinine Ratio 27 Glucose Level 212 H 70-105 MG/DL Calcium Level 9.4 8.5-10.1 MG/DL Corrected Calcium 10.1 8.5-10.1 MG/DL Phosphorus Level 3.3 2.3-4.7 MG/DL Magnesium Level 1.9 1.6-2.4 MG/DL Total Bilirubin 0.5 0.1-1.0 MG/DL Aspartate Amino Transf (AST/SGOT) 22 5-34 U/L Alanine Aminotransferase (ALT/SGPT) 21 0-55 U/L Alkaline Phosphatase 84 40-136 U/L Total Protein 7.6 6.4-8.2 GM/DL Albumin 3.1 L 3.2-4.5 GM/DL Diagnosis/Problems Diagnosis/Problems (1) Coronary artery disease without angina pectoris Assessment & Plan: She has not been having any angina. She is on amlodipine and statin medication. Her hemoglobin has been stable although she is anemic. I will start her on low strength aspirin. (2) Paroxysmal atrial fibrillation Assessment & Plan: She has been remaining in sinus rhythm. She has not had any atrial fibrillation during this admission. She is not currently on oral anticoagulation presumably due to persistent anemia and history of gastroin testinal hemorrhage in the past. (3) Primary hypertension Assessment & Plan: Blood pressure is adequately controlled with present medication. (4) Mixed hyperlipidemia Assessment & Plan: Continue statin. (5) Acute on chronic respiratory failure with hypoxemia Assessment & Plan: I suspect this is primarily due to her chronic obstructive pulmonary disease and morbid obesity with chronic hypoventilation. (6) Morbid obesity Assessment & Plan: Bariatric surgery had been discussed with the patient in the past but she declined. I recommend restricting her daily caloric intake to 2000 sharan. I have changed her diet. GORDO REYNA JR, MD August 22, 2021 08:53
[2021-08-22] MEDS: FOLIC ACID 1 MG TAB PO SCH (08:57)
[2021-08-22] MEDS: DOCUSATE SODIUM 100 MG (COLACE) CAP PO SCH ×2 (08:57→21:51)
[2021-08-22] MEDS: PANTOPRAZOLE 20 MG TABLET (PROTONIX) PO SCH ×2 (08:57→21:51)
[2021-08-22] MEDS: SENNOSIDES 8.6 MG (SENOKOT) TAB PO SCH ×2 (08:57→21:51)
[2021-08-22] MEDS: MICONAZOLE 2% POWDER (DESENEX AF) 90 GM TOP SCH ×2 (08:57→21:52)
[2021-08-22] MEDS: amLODIPine 5 MG (NORVASC) TAB PO SCH (08:57)
[2021-08-22] MEDS: MAGNESIUM 1 GM/100 ML IVPB 100 ML IV SCH (08:59)
[2021-08-22] MEDS: POTASSIUM CL 10MEQ/50ML IVPB 50 ML IV SCH (08:59)
[2021-08-22] MEDS: KCL 20 MEQ TAB (K-DUR) PO SCH (08:59)
[2021-08-22] MEDS: ASPIRIN E.C. 81 MG (ECOTRIN) TAB PO SCH (09:22)
--- NOTE | 2021-08-22 11:14 | Physical Therapy Daily Note ---
PT Daily Note-Current Subjective Pt in bed upon arrival and eating breakfast and agrees to PT. Says she is feeling better today. Mental Status Patient Orientation: Person, Place Attachments: Oxygen, Mack Catheter, IV Transfers SCALE: Activities may be completed with or without assistive devices. 4-Obpbqfzfmk-cznvtvd completes the activity by him/herself with no assistance from a helper. 5-Set-up or Clean-up Assistance-helper sets up or cleans up; patient completes activity. [place] assists only prior to or following the activity. 4-Supervision or Touching Assistance-helper provides verbal cues and/or touching/steadying and/or contact guard assistance as patient completes activity. Assistance may be provided throughout the activity or intermittently. 3-Partial/Moderate Assistance-helper does LESS THAN HALF the effort. [place] lifts, holds or supports trunk or limbs, but provides less than half the effort. 2-Substantial/Maximal Assistance-helper does MORE THAN HALF the effort. [place] lifts or holds trunk or limbs and provides more than half the effort. 5-Ovoorppiq-xwgxfg does ALL the effort. Patient does none of the effort to com plete the activity. Or, the assistance of 2 or more helpers is required for the patient to complete the activity. If activity was not attempted, code reason: 7-Patient Refused. 9-Not Applicable-not attempted and the patient did not perform the activity before the current illness, exacerbation or injury. 10-Not Attempted due to Environmental Limitations-(lack of equipment, weather restraints, etc.). 88-Not Attempted due to Medical Conditions or Safety Concerns. Weight Bearing Right Lower Extremity: Right Full Weight Bearing Left Lower Extremity: Left Full Weight Bearing Exercises Supine Ex: Ankle pumps, Quad Set, Heel Slides, Short Arc Quads Supine Reps: 10 (AAROM) Treatments Call light nearby and all needs met as PT departs. Doctor presents as PT departs. Assessment Current Status: Fair Progress Pt tolerated exs fairly well and requires rest breaks in between each ex. Pt required skilled verbal and tactile cues in order to perform exs correctly. PT Physician General Internal Medicine Goals Physician General Internal Medicine Goals PT Physician General Internal Medicine Goals Time Frame: Aug 26, 2021 Roll Left & Right (QC): 3 (Chemo) Sit to Lying (QC): 3 (modA) Lying-Sitting on Side/Bed(QC): 3 (modA) Sit to Stand (QC): 3 (modA) Chair/Kqv-xz-Wtlnh Xfer(QC): 3 (modA) PT Plan Problem List Problem List: Activity Tolerance, Functional Strength Treatment/Plan Treatment Plan: Continue Plan of Care Treatment Plan: Bed Mobility, Education, Functional Activity Ron, Functional Strength, Group Therapy, Gait, Safety, Therapeutic Exercise, Transfers Treatment Duration: Aug 26, 2021 Frequency: 6 times per week Estimated Hrs Per Day: .25 hour per day Patient and/or Family Agrees t: Yes Safety Risks/Education Patient Education: Correct Positioning Teaching Recipient: Patient Teaching Methods: Discussion Response to Teaching: Return Demonstration Time/GCodes Time In: 953 Time Out: 1003 Total Billed Treatment Time: 10 Total Billed Treatment 1, Ex 10min RADHA CHEEMA AED TRAINER August 22, 2021 11:14
[2021-08-22] MEDS: ENOXAPARIN 60 MG/0.6 ML (LOVENOX) SYR SC SCH ×2 (11:37→23:53)
[2021-08-22] MEDS: guaiFENesin/DM (ROBITUSSIN DM) 10 ML UDC PO PRN (11:38)
[2021-08-22] MEDS: inSUlin (REGULAR) HUMAN 1 UNIT/0.01 ML (CHARGE PER UNIT) SC PRN (16:38)
[2021-08-22] MEDS: lisINopril 5 MG (PRINIVIL) TABLET PO SCH (21:51)
[2021-08-23] VITALS (24 sets, daily range): BP systolic 115–156; BP diastolic 53–118
[2021-08-23] MEDS: RT-ALBUTEROL/IPRATROPIUM 3 ML (DUONEB) VIAL INH SCH ×6 (03:10→22:20)
[2021-08-23] MEDS: ALPRAZolam 0.5 MG (XANAX) TAB PO SCH ×6 (04:21→23:12)
[2021-08-23] MEDS: NOREPINEPHRINE 8 MG/250 ML 250 ML IV SCH ×4 (04:27→23:52)
[2021-08-23 05:12] LABS: BASOPHILS # (AUTO) 0.1 10^3/uL (0.0-0.1); BASOPHILS % (AUTO) 0 % (0-10); EOSINOPHILS # (AUTO) 0.2 10^3/uL (0.0-0.3); EOSINOPHILS % (AUTO) 1 % (0-10); HEMATOCRIT 35 % (35-52); HEMOGLOBIN 10.4 g/dL (11.5-16.0); LYMPHOCYTES # (AUTO) 3.6 10^3/uL (1.0-4.0); LYMPHOCYTES % (AUTO) 20 % (12-44); MEAN CORPUSCULAR HEMOGLOBIN 26 pg (25-34); MEAN CORPUSCULAR HGB CONC 29 g/dL (32-36); MEAN CORPUSCULAR VOLUME 87 fL (80-99); MEAN PLATELET VOLUME 9.8 fL (9.0-12.2); MONOCYTES # (AUTO) 0.9 10^3/uL (0.0-1.0); MONOCYTES % (AUTO) 5 % (0-12); NEUTROPHILS % (AUTO) 72 % (42-75); PLATELET COUNT 488 10^3/uL (130-400)
[2021-08-23 05:19] LABS: ALBUMIN 3.3 GM/DL (3.2-4.5); POTASSIUM 4.2 MMOL/L (3.6-5.0)
[2021-08-23 05:20] LABS: CALCIUM 9.7 MG/DL (8.5-10.1)
[2021-08-23 05:23] LABS: BILIRUBIN,TOTAL 0.4 MG/DL (0.1-1.0)
[2021-08-23 05:25] LABS: CREATININE SERUM 1.04 MG/DL (0.60-1.30); PHOSPHORUS 3.5 MG/DL (2.3-4.7)
[2021-08-23] MEDS: KCL 20 MEQ TAB (K-DUR) PO SCH (05:26)
[2021-08-23] MEDS: MAGNESIUM 1 GM/100 ML IVPB 100 ML IV SCH (05:26)
[2021-08-23] MEDS: POTASSIUM CL 10MEQ/50ML IVPB 50 ML IV SCH (05:26)
[2021-08-23 05:28] LABS: MAGNESIUM 2.1 MG/DL (1.6-2.4)
[2021-08-23] MEDS: inSUlin ASPART (NovoLOG) 1 UNIT/0.01 ML (CHARGE PER UNIT) SC SCH ×6 (06:12→20:50)
[2021-08-23] MEDS: predniSONE 20 MG TAB PO SCH (06:12)
[2021-08-23] MEDS: FUROSEMIDE 40 MG (LASIX) TAB PO SCH ×2 (06:13→16:40)
[2021-08-23] MEDS: LEVOTHYROXINE 75 MCG (LEVOTHROID) TABLET PO SCH (06:13)
[2021-08-23] MEDS: MULTIVIT W/MINERALS TAB (THERAGRAN M) PO SCH (06:13)
[2021-08-23] MEDS: LEVOTHYROXINE 100 MCG (LEVOTHROID) TAB PO SCH (06:13)
[2021-08-23] MEDS: GABAPENTIN 600 MG (NEURONTIN) TAB PO SCH ×3 (06:13→23:12)
--- NOTE | 2021-08-23 07:02 | Progress Note - Hospitalist ---
Subjective HPI/CC On Admission Date Seen by Provider: August 23, 2021 Time Seen by Provider: 11:00 Pt doing about the same Maintained on BiPAP Chronic right hip and knee pain She does have pain medication ordered ABG will be ordered She appears to be BIPAP dependent Overall, very poor prognosis Subjective/Events-last exam No major events Moving to [facility] Nephew spoke to me yesterday and I explained her respiratory failure is from her obesity causing restrictive process with OHA No outside food allowed due to elevated sugars Review of Systems General: Fatigue, Malaise Pulmonary: Dyspnea Objective Exam Vital Signs Vital Signs Date Time Temp Pulse Resp B/P (MAP) Pulse Ox O2 Delivery O2 Flow Rate FiO2 08/23/21 20:00 36.4 08/23/21 18:59 89 Vapotherm 35.00 75 08/23/21 18:00 67 30 131/58 (82) Capillary Refill : Less Than 3 Seconds General Appearance: No Apparent Distress, WD/WN, Chronically ill, Obese Respiratory: Lungs Clear, Normal Breath Sounds Cardiovascular: Regular Rate, Rhythm Neurologic/Psychiatric: Alert, Oriented x3 Results/Procedures Lab Laboratory Tests 08/23/21 04:59 Patient resulted labs reviewed. Assessment/Plan Assessment and Plan Assess & Plan/Chief Complaint Assessment: Sepsis UTI Super morbid obesity BMI 73 Acute on chronic respiratory failure Obesity hypoventilation syndrome CO2 retention requiring BiPAP Hypertension Hyperlipidemia Diabetes Paroxysmal atrial fibrillation Anticoagulation contraindicated due to life-threatening bleed in the past Hypothyroidism Right hip pain Plan: Supportive care IV antibiotics ICU BiPAP 08/05/21: Monitor closely Transfer to 4th [address] Dr Talamantes right hip pain 08/06/2021: Social work for disposition Poor prognosis due to increased BMI 76 08/07/2021: BiPAP Supportive care Poor prognosis 08/09/2021: Supportive care BiPAP 08/10/2021: Supportive care BiPAP 08/11/2021: Supportive care ICU [place]? 08/12/2021: [place] 08/13/2021: Await [place] Supportive care 08/14: Await [place] 08/22/2021: Supportive care BiPAP and Vapotherm dependent 08/23/21: Unable to wean off Vapotherm and BIPAP Critical Care Critically Ill Patient Diagnosis/Problems Diagnosis/Problems (1) Sepsis Status: Acute (2) Hypotension Status: Resolved Resolution Date/Time: 04/28/20 @ 13:41 (3) Hypothyroidism Status: Chronic (4) Renal failure (ARF), acute on chronic Status: Resolved (5) Hyperlipidemia Status: Chronic (6) Atrial fibrillation Status: Chronic (7) Coronary artery disease Status: Chronic Qualifiers: Coronary Disease-Associated Artery/Lesion type: [place] artery [place] vs. transplanted heart: [place] heart (8) Diabetes Status: Chronic Qualifiers: Diabetes mellitus type: type 2 Diabetes mellitus nursing home insulin use: with intermediate accountant use Diabetes mellitus complication status: with other specified complication Qualified Codes: E11.69 - Type 2 diabetes mellitus with other specified complication; Z79.4 - terminal manager (current) use of insulin (9) COPD (chronic obstructive pulmonary disease) Status: Chronic Qualifiers: COPD type: COPD with acute exacerbation Qualified Codes: J44.1 - Chronic obstructive pulmonary disease with (acute) exacerbation EDEL BLISS DO August 23, 2021 07:02
--- NOTE | 2021-08-23 08:31 | Tele-ICU Progress Note ---
Progress Note video rounds completed 66 y/o with super morbid obesity and hypoxemic respiratory failure, CHF Being followed by cardiology No acute events overnight Blood sugars still running high, 271 this am Have adjusted insulin doses slightly to compensate WBC up to 18,000 today will check UA and CXR Drastically needs weight reduction for improvement of respiratory status and DM. Consider bariatric surgery if patient agreeable Focused Exam Height, Weight, BMI Height: 5'5.00" Weight: 380lbs. 0.0oz. [id number]; 71.42 BMI Method: Labs Laboratory Tests 08/23/21 04:59 Results Results/Procedures Labs Laboratory Tests 08/22/21 05:33 08/23/21 04:59 Patient resulted labs reviewed. Results Labs Labs Laboratory Tests 08/22/21 10:31: Glucometer 361H 08/22/21 15:45: Glucometer 462*H 08/22/21 21:42: Glucometer 301H 08/23/21 04:59: White Blood Count 18.0H, Red Blood Count 4.05, Hemoglobin 10.4L, Hematocrit 35, Mean Corpuscular Volume 87, Mean Corpuscular Hemoglobin 26, Mean Corpuscular Hemoglobin Concent 29L, Red Cell Distribution Width 16.5H, Platelet Count 488H, Mean Platelet Volume 9.8, Immature Granulocyte % (Auto) 1, Neutrophils (%) (Auto) 72, Lymphocytes (%) (Auto) 20, Monocytes (%) (Auto) 5, Eosinophils (%) (Auto) 1, Basophils (%) (Auto) 0, Neutrophils # (Auto) 13.0H, Lymphocytes # (Auto) 3.6, Monocytes # (Auto) 0.9, Eosinophils # (Auto) 0.2, Basophils # (Auto) 0.1, Immature Granulocyte # (Auto) 0.2H, Sodium Level 135, Potassium Level 4.2, Chloride Level 90L, Carbon Dioxide Level 33H, Anion Gap 12, Blood Urea Nitrogen 32H, Creatinine 1.04, Estimat Glomerular Filtration Rate 59, BUN/Creatinine Ratio 31, Glucose Level 271H, Calcium Level 9.7, Corrected Calcium 10.3H, Phosphorus Level 3.5, Magnesium Level 2.1, Total Bilirubin 0.4, Aspartate Amino Transf (AST/SGOT) 21, Alanine Aminotransferase (ALT/SGPT) 25, Alkaline Phosphatase 89, Total Protein 8.0, Albumin 3.3 Microbiology 5/24/22 Blood Culture - Preliminary, Resulted No growth 08/03/21 MRSA Screen - Final, Complete MRSA not isolated ESTEFANY BANKS MD August 23, 2021 08:31
[2021-08-23] MEDS: MICONAZOLE 2% POWDER (DESENEX AF) 90 GM TOP SCH ×2 (08:32→20:51)
[2021-08-23] MEDS: PANTOPRAZOLE 20 MG TABLET (PROTONIX) PO SCH ×2 (08:32→20:49)
[2021-08-23] MEDS: amLODIPine 5 MG (NORVASC) TAB PO SCH (08:32)
[2021-08-23] MEDS: FOLIC ACID 1 MG TAB PO SCH (08:32)
[2021-08-23] MEDS: SENNOSIDES 8.6 MG (SENOKOT) TAB PO SCH ×2 (08:32→20:49)
[2021-08-23] MEDS: DOCUSATE SODIUM 100 MG (COLACE) CAP PO SCH ×2 (08:32→20:49)
[2021-08-23] MEDS: ASPIRIN E.C. 81 MG (ECOTRIN) TAB PO SCH (08:32)
--- NOTE | 2021-08-23 09:35 | Diagnostic Imaging Report ---
INDICATION: Leukocytosis Portable AP view of the chest is obtained with comparison made to study of 08/17/2021. Study is limited due to patient positioning and patient body habitus. Heart size and pulmonary vascularity are at the upper limits of normal with mild increased density in the central regions of both lungs. No definite pneumothorax is identified. No significant adverse change is detected. IMPRESSION: Findings suggest probable congestive heart failure with mild central pulmonary edema, bilaterally. Dictated by: Dictated on workstation # [id number]
--- NOTE | 2021-08-23 10:48 | Cardiology Progress Note ---
Progress Note-Cardiology Events since last exam Date Seen by Provider: August 23, 2021 Time Seen by Provider: 10:47 Events since last exam We are following her due to her chronic cardiac conditions in the setting of acute on chronic respiratory failure. She remains in the intensive care unit on high flow oxygen but is breathing on her own. She denies chest discomfort, dyspnea at rest, palpitations, syncope, or ankle edema. She is waiting for placement due to her need for high flow oxygen. Certain portions of this document may have been dictated utilizing voice recognition technology. Inherent to this technology, typographical and grammatical errors may exist. As much as I am diligent to identify and correct these mistakes, some errors may remain in the document. Vitals Last set of Vitals Signs Vital Signs 08/23/21 08/23/21 07:34 09:00 Temp 35.3 Pulse 66 Resp 22 B/P (MAP) 141/77 (98) Pulse Ox 88 O2 Delivery Vapotherm O2 Flow Rate 70.00 35.00 Labs Labs Laboratory Tests 08/23/21 04:59 Exam Vital Signs Vital Signs Date Time Temp Pulse Resp B/P (MAP) Pulse Ox O2 Delivery O2 Flow Rate FiO2 08/23/21 09:00 66 22 141/77 (98) 88 Vapotherm 70.00 35.00 08/23/21 08:37 70 08/23/21 07:34 35.3 Physical Exam General: Alert. No acute distress. She is morbidly obese. She is on high flow oxygen. Eye: No xanthelasma. HENT: Normocephalic. Neck: Jugular venous pressure does not appear elevated. Respiratory: Lungs are clear to auscultation. Respirations are non-labored. Breath sounds are equal. Symmetrical chest wall expansion. Cardiovascular: Normal rate. Regular rhythm. Distant S1/S2. No murmur. No gallop. No edema. Gastrointestinal: Soft. Normal bowel sounds. Skin: Warm. Dry. Neurologic: Alert and oriented to person, place, time. Cranial nerves 3-11 grossly intact. Psychiatric: Cooperative. Appropriate mood & affect. Labs Laboratory Tests Test 08/22/21 15:45 08/22/21 21:42 08/23/21 04:59 08/23/21 10:29 Range/Units Glucometer 462 *H 301 H 360 H 70-110 MG/DL White Blood Count 18.0 H 4.3-11.0 10^3/uL Red Blood Count 4.05 3.80-5.11 10^6/uL Hemoglobin 10.4 L 11.5-16.0 g/dL Hematocrit 35 35-52 % Mean Corpuscular Volume 87 80-99 fL Mean Corpuscular Hemoglobin 26 25-34 pg Mean Corpuscular Hemoglobin Concent 29 L 32-36 g/dL Red Cell Distribution Width 16.5 H 10.0-14.5 % Platelet Count 488 H 130-400 10^3/uL Mean Platelet Volume 9.8 9.0-12.2 fL Immature Granulocyte % (Auto) 1 % Neutrophils (%) (Auto) 72 42-75 % Lymphocytes (%) (Auto) 20 12-44 % Monocytes (%) (Auto) 5 0-12 % Eosinophils (%) (Auto) 1 0-10 % Basophils (%) (Auto) 0 0-10 % Neutrophils # (Auto) 13.0 H 1.8-7.8 10^3/uL Lymphocytes # (Auto) 3.6 1.0-4.0 10^3/uL Monocytes # (Auto) 0.9 0.0-1.0 10^3/uL Eosinophils # (Auto) 0.2 0.0-0.3 10^3/uL Basophils # (Auto) 0.1 0.0-0.1 10^3/uL Immature Granulocyte # (Auto) 0.2 H 0.0-0.1 10^3/uL Sodium Level 135 135-145 MMOL/L Potassium Level 4.2 3.6-5.0 MMOL/L Chloride Level 90 L 98-107 MMOL/L Carbon Dioxide Level 33 H 21-32 MMOL/L Anion Gap 12 5-14 MMOL/L Blood Urea Nitrogen 32 H 7-18 MG/DL Creatinine 1.04 0.60-1.30 MG/DL Estimat Glomerular Filtration Rate 59 BUN/Creatinine Ratio 31 Glucose Level 271 H 70-105 MG/DL Calcium Level 9.7 8.5-10.1 MG/DL Corrected Calcium 10.3 H 8.5-10.1 MG/DL Phosphorus Level 3.5 2.3-4.7 MG/DL Magnesium Level 2.1 1.6-2.4 MG/DL Total Bilirubin 0.4 0.1-1.0 MG/DL Aspartate Amino Transf (AST/SGOT) 21 5-34 U/L Alanine Aminotransferase (ALT/SGPT) 25 0-55 U/L Alkaline Phosphatase 89 40-136 U/L Total Protein 8.0 6.4-8.2 GM/DL Albumin 3.3 3.2-4.5 GM/DL Diagnosis/Problems Diagnosis/Problems (1) Coronary artery disease without angina pectoris Assessment & Plan: She has not been having any angina. She is on amlodipine and statin medication. Her hemoglobin has been stable although she is anemic. I started her on low strength aspirin. At this point time, there do not appear to be any acute, active cardiac issues. Cardiology will follow along on the sidelines. Please call if you have any immediate questions or concerns. (2) Paroxysmal atrial fibrillation Assessment & Plan: She has been remaining in sinus rhythm. She has not had any atrial fibrillation during this admission. She is not currently on oral anticoagulation presumably due to persistent anemia and history of gastrointestinal hemorrhage in the past. (3) Primary hypertension Assessment & Plan: Blood pressure is adequately controlled with present medication. (4) Mixed hyperlipidemia Assessment & Plan: Continue statin. (5) Acute on chronic respiratory failure with hypoxemia Assessment & Plan: I suspect this is primarily due to her chronic obstructive pulmonary disease and morbid obesity with chronic hypoventilation. (6) Morbid obesity Assessment & Plan: Bariatric surgery had been discussed with the patient in the past but she declined. I recommend restricting her daily caloric intake to 2000 sharan. I have changed her diet. Unfortunately, her has been bringing her outside food. GORDO REYNA JR, MD August 23, 2021 10:48
[2021-08-23] MEDS: ENOXAPARIN 60 MG/0.6 ML (LOVENOX) SYR SC SCH ×2 (11:52→23:11)
[2021-08-23] MEDS: inSUlin (REGULAR) HUMAN 1 UNIT/0.01 ML (CHARGE PER UNIT) SC PRN ×2 (11:53→16:40)
[2021-08-23] MEDS: lisINopril 5 MG (PRINIVIL) TABLET PO SCH (20:49)
[2021-08-24] VITALS (14 sets, daily range): BP systolic 93–130; BP diastolic 44–78
[2021-08-24] MEDS: RT-ALBUTEROL/IPRATROPIUM 3 ML (DUONEB) VIAL INH SCH ×6 (03:00→21:02)
[2021-08-24] MEDS: ALPRAZolam 0.5 MG (XANAX) TAB PO SCH ×6 (04:30→23:54)
[2021-08-24 05:06] LABS: BASOPHILS # (AUTO) 0.1 10^3/uL (0.0-0.1); BASOPHILS % (AUTO) 0 % (0-10); EOSINOPHILS # (AUTO) 0.1 10^3/uL (0.0-0.3); EOSINOPHILS % (AUTO) 1 % (0-10); HEMATOCRIT 37 % (35-52); HEMOGLOBIN 10.9 g/dL (11.5-16.0); LYMPHOCYTES % (AUTO) 26 % (12-44); MEAN CORPUSCULAR HEMOGLOBIN 26 pg (25-34); MEAN CORPUSCULAR HGB CONC 29 g/dL (32-36); MEAN CORPUSCULAR VOLUME 87 fL (80-99); MEAN PLATELET VOLUME 9.7 fL (9.0-12.2); MONOCYTES # (AUTO) 0.6 10^3/uL (0.0-1.0); MONOCYTES % (AUTO) 4 % (0-12); NEUTROPHILS # (AUTO) 10.5 10^3/uL (1.8-7.8); NEUTROPHILS % (AUTO) 68 % (42-75); PLATELET COUNT 504 10^3/uL (130-400); WHITE BLOOD COUNT 15.5 10^3/uL (4.3-11.0)
[2021-08-24 05:13] LABS: ALBUMIN 3.3 GM/DL (3.2-4.5)
[2021-08-24 05:14] LABS: POTASSIUM 4.5 MMOL/L (3.6-5.0)
[2021-08-24 05:15] LABS: CALCIUM 9.7 MG/DL (8.5-10.1)
[2021-08-24 05:16] LABS: TOTAL PROTEIN 7.9 GM/DL (6.4-8.2)
[2021-08-24 05:18] LABS: BILIRUBIN,TOTAL 0.4 MG/DL (0.1-1.0)
[2021-08-24 05:20] LABS: CREATININE SERUM 1.21 MG/DL (0.60-1.30)
[2021-08-24] MEDS: POTASSIUM CL 10MEQ/50ML IVPB 50 ML IV SCH (05:21)
[2021-08-24] MEDS: KCL 20 MEQ TAB (K-DUR) PO SCH (05:21)
[2021-08-24 05:22] LABS: MAGNESIUM 2.2 MG/DL (1.6-2.4)
[2021-08-24] MEDS: MAGNESIUM 1 GM/100 ML IVPB 100 ML IV SCH (05:34)
[2021-08-24] MEDS: GABAPENTIN 600 MG (NEURONTIN) TAB PO SCH ×3 (06:10→23:54)
[2021-08-24] MEDS: predniSONE 20 MG TAB PO SCH (06:10)
[2021-08-24] MEDS: MULTIVIT W/MINERALS TAB (THERAGRAN M) PO SCH (06:10)
[2021-08-24] MEDS: LEVOTHYROXINE 100 MCG (LEVOTHROID) TAB PO SCH (06:10)
[2021-08-24] MEDS: inSUlin ASPART (NovoLOG) 1 UNIT/0.01 ML (CHARGE PER UNIT) SC SCH ×7 (06:10→21:03)
[2021-08-24] MEDS: LEVOTHYROXINE 75 MCG (LEVOTHROID) TABLET PO SCH (06:10)
[2021-08-24] MEDS: FUROSEMIDE 40 MG (LASIX) TAB PO SCH ×2 (06:10→17:35)
--- NOTE | 2021-08-24 07:19 | Progress Note - Hospitalist ---
Subjective HPI/CC On Admission Date Seen by Provider: August 24, 2021 Time Seen by Provider: 10:00 Pt doing about the same Maintained on BiPAP Chronic right hip and knee pain She does have pain medication ordered ABG will be ordered She appears to be BIPAP dependent Overall, very poor prognosis Subjective/Events-last exam Vapotherm dependent BiPAP at night No progress really Needs biPAP at DC No pain reported BM+ Review of Systems General: Fatigue, Malaise Objective Exam Vital Signs Vital Signs Date Time Temp Pulse Resp B/P (MAP) Pulse Ox O2 Delivery O2 Flow Rate FiO2 08/24/21 13:05 Vapotherm 60.00 35.00 08/24/21 12:33 63 08/24/21 10:30 88 80 08/24/21 10:00 13 08/24/21 08:00 36.2 Capillary Refill : Less Than 3 Seconds General Appearance: No Apparent Distress, WD/WN, Chronically ill, Obese Respiratory: Lungs Clear, Normal Breath Sounds Cardiovascular: Regular Rate, Rhythm Neurologic/Psychiatric: Alert, Oriented x3 Results/Procedures Lab Laboratory Tests 08/24/21 04:55 Patient resulted labs reviewed. Assessment/Plan Assessment and Plan Assess & Plan/Chief Complaint Assessment: Sepsis UTI Super morbid obesity BMI 73 Acute on chronic respiratory failure Obesity hypoventilation syndrome CO2 retention requiring BiPAP Hypertension Hyperlipidemia Diabetes Paroxysmal atrial fibrillation Anticoagulation contraindicated due to life-threatening bleed in the past Hypothyroidism Right hip pain Plan: Supportive care IV antibiotics ICU BiPAP 08/05/21: Monitor closely Transfer to 4th [address] Dr Talamantes right hip pain 08/06/2021: Social work for disposition Poor prognosis due to increased BMI 76 08/07/2021: BiPAP Supportive care Poor prognosis 08/09/2021: Supportive care BiPAP 08/10/2021: Supportive care BiPAP 08/11/2021: Supportive care ICU [place]? 08/12/2021: [place] 08/13/2021: Await [place] Supportive care 08/14: Await [place] 08/22/2021: Supportive care BiPAP and Vapotherm dependent 08/23/21: Unable to wean off Vapotherm and BIPAP 08/24/21: Move to floor Critical Care Critically Ill Patient Diagnosis/Problems Diagnosis/Problems (1) Sepsis Status: Acute (2) Hypotension Status: Resolved Resolution Date/Time: 04/28/20 @ 13:41 (3) Hypothyroidism Status: Chronic (4) Renal failure (ARF), acute on chronic Status: Resolved (5) Hyperlipidemia Status: Chronic (6) Atrial fibrillation Status: Chronic (7) Coronary artery disease Status: Chronic Qualifiers: Coronary Disease-Associated Artery/Lesion type: [place] artery [place] vs. transplanted heart: [place] heart (8) Diabetes Status: Chronic Qualifiers: Diabetes mellitus type: type 2 Diabetes mellitus manager terminal insulin use: with manager terminal use Diabetes mellitus complication status: with other specified complication Qualified Codes: E11.69 - Type 2 diabetes mellitus with other specified complication; Z79.4 - intermediate accountant (current) use of insulin (9) COPD (chronic obstructive pulmonary disease) Status: Chronic Qualifiers: COPD type: COPD with acute exacerbation Qualified Codes: J44.1 - Chronic obstructive pulmonary disease with (acute) exacerbation EDEL BLISS DO August 24, 2021 07:19
[2021-08-24] MEDS: NOREPINEPHRINE 8 MG/250 ML 250 ML IV SCH (07:38)
[2021-08-24] MEDS: FOLIC ACID 1 MG TAB PO SCH (08:37)
[2021-08-24] MEDS: amLODIPine 5 MG (NORVASC) TAB PO SCH (08:37)
[2021-08-24] MEDS: DOCUSATE SODIUM 100 MG (COLACE) CAP PO SCH ×2 (08:37→21:02)
[2021-08-24] MEDS: ASPIRIN E.C. 81 MG (ECOTRIN) TAB PO SCH (08:37)
[2021-08-24] MEDS: SENNOSIDES 8.6 MG (SENOKOT) TAB PO SCH ×2 (08:37→21:03)
[2021-08-24] MEDS: PANTOPRAZOLE 20 MG TABLET (PROTONIX) PO SCH ×2 (08:37→21:03)
[2021-08-24] MEDS: MICONAZOLE 2% POWDER (DESENEX AF) 90 GM TOP SCH ×2 (08:39→21:02)
--- NOTE | 2021-08-24 08:43 | Tele-ICU Progress Note ---
Subjective Date Seen by a Provider: August 24, 2021 Time Seen by a Provider: 06:50 Subjective/Events-last exam This virtual visit was conducted using real time audio/video. Thank you for asking us to see this patient for respiratory insufficiency due to CHF. Also urosepsis, afib which converted. PE: No distress, morbidly obese. VSS. O2 sat 92% on vapotherm 35 LPM. HEENT: No obvious masses, adenopathy or JVD. Chest: clear to auscultation. Diminished. CV: RRR S1 S2 No murmur or added sounds. Abd: Non-tender. Bowel sounds Y. : Unremarkable. Mack Y. W[place]/psychiatric: Grossly intact. No obvious focal findings. Extremities: no edema. Capillary refill < 3 seconds. Skin: unremarkable. Results: Elevated WCC 15.5, BUN 39, BG 231. Available chart/ vitals / labs / images reviewed. Video assessment done using teleICU camera, rest of exam as per RN. A/P: Respiratory insufficiency: Continue present management with BiPAP/VT, duonebs. Monitor for increasing oxygenation needs and/or need for intubation. Critical Care: critically ill patient. Cont. PRN pressor, iftikhar., SSI, Lasix, statin, lisinopril, PPI, and Levemir. Discussed with RN Diandra. Asked RN to reach out to eICU if any questions or concerns later. Time spent with patient/coordination of care with other health professionals (mins): 24 Sepsis Event Evaluation Height, Weight, BMI Height: 5'5.00" Weight: 380lbs. 0.0oz. [id number]; 71.42 BMI Method: Exam Exam Patient acknowledged, consented, and participated in this virtual visit which was conducted using real time audio/video Vital Signs Date Time Temp Pulse Resp B/P (MAP) Pulse Ox O2 Delivery O2 Flow Rate FiO2 08/24/21 08:00 36.2 08/24/21 07:12 90 Vapotherm 35.00 90 08/24/21 06:17 Vapotherm 75.00 35.00 08/24/21 06:02 51 115/61 (83) 91 NIV Bilevel 60.00 08/24/21 05:11 59 14 113/53 (76) 93 NIV Bilevel 60.00 08/24/21 04:00 49 19 112/58 (77) 91 NIV Bilevel 60.00 08/24/21 04:00 93 NIV Bilevel 70 08/24/21 03:58 36.0 08/24/21 03:00 55 22 91 60.00 08/24/21 03:00 52 94/78 (81) 88 NIV Bilevel 60.00 08/24/21 02:00 NIV Bilevel 60.00 08/24/21 02:00 55 20 97/49 (63) 92 NIV Bilevel 60.00 08/24/21 01:00 52 23 110/49 (69) 95 NIV Bilevel 70.00 08/24/21 01:00 52 08/24/21 00:00 53 20 101/44 (65) 92 NIV Bilevel 70.00 08/24/21 00:00 93 NIV Bilevel 70 08/23/21 23:59 36.3 08/23/21 23:18 70 32 91 NIV Bilevel 70.00 08/23/21 23:00 70 18 142/61 (88) 91 Vapotherm 65.00 35.00 08/23/21 22:52 36.9 08/23/21 22:00 64 21 141/69 (93) 93 Vapotherm 65.00 35.00 08/23/21 21:00 65 19 152/76 (105) 91 Vapotherm 65.00 35.00 08/23/21 20:00 92 Vapotherm 35.00 75 08/23/21 20:00 36.4 08/23/21 20:00 65 14 134/61 (110) 86 Vapotherm 65.00 35.00 08/23/21 19:00 54 08/23/21 19:00 55 40 118/62 (83) Vapotherm 65.00 35.00 08/23/21 18:59 89 Vapotherm 35.00 75 08/23/21 18:00 67 30 131/58 (82) 89 Vapotherm 65.00 35.00 08/23/21 17:54 Vapotherm 65.00 35.00 08/23/21 17:00 62 18 156/74 (101) 91 Vapotherm 55.00 35.00 08/23/21 16:41 Vapotherm 55.00 35.00 08/23/21 16:35 91 Vapotherm 35.00 65 08/23/21 16:00 66 20 142/66 (91) 88 Vapotherm 65.00 35.00 08/23/21 15:00 66 23 132/62 (85) 91 Vapotherm 65.00 35.00 08/23/21 14:35 91 Vapotherm 35.00 65 08/23/21 14:00 69 14 143/70 (94) 94 Vapotherm 70.00 35.00 08/23/21 13:00 63 21 127/69 (88) 94 Vapotherm 70.00 35.00 08/23/21 12:47 71 08/23/21 12:00 36.1 08/23/21 12:00 91 Vapotherm 35.00 65 08/23/21 12:00 69 133/67 (89) 90 Vapotherm 70.00 35.00 08/23/21 11:00 75 90 Vapotherm 70.00 35.00 08/23/21 10:51 90 Vapotherm 35.00 70 08/23/21 10:00 67 21 116/92 (100) 94 Vapotherm 70.00 35.00 08/23/21 09:00 66 22 141/77 (98) 88 Vapotherm 70.00 35.00 I & O 08/24/21 07:00 Intake Total 4790 ml Output Total 5215 ml Balance -425 ml Height & Weight Height: 5'5.00" Weight: 380lbs. 0.0oz. [id number]; 71.42 BMI Method: General Appearance: No Apparent Distress, WD/WN, Chronically ill, Obese HEENT: PERRL/EOMI, Moist Mucous Membranes Neck: Full Range of Motion, Normal Inspection Respiratory: Lungs Clear, Normal Breath Sounds Cardiovascular: Regular Rate, Rhythm Capillary Refill: Less Than 3 Seconds Extremity: Other Neurologic/Psychiatric: Alert, Oriented x3 Skin: Warm/Dry Lymphatic: No Adenopathy Results Lab Laboratory Tests 08/23/21 04:59 08/24/21 04:55 Assessment/Plan Assessment/Plan See free text. Critical Care: Critically Ill Patient JAKE HUNTER MD August 24, 2021 08:43
--- NOTE | 2021-08-24 09:19 | Physical Therapy Daily Note ---
PT Daily Note-Current Subjective Patient in bed pre tx, agrees to PT, has 88% O2 at rest, it comes up to 90% with purse lip breathing Appearance Patient in bed post tx with nurse call, phone, tray, all needs met. Mental Status Patient Orientation: Person, Place, Situation Attachments: Oxygen (vapotherm), Mack Catheter Transfers SCALE: Activities may be completed with or without assistive devices. 0-Cutopubadg-oxpxywb completes the activity by him/herself with no assistance from a helper. 5-Set-up or Clean-up Assistance-helper sets up or cleans up; patient completes activity. [place] assists only prior to or following the activity. 4-Supervision or Touching Assistance-helper provides verbal cues and/or touching/steadying and/or contact guard assistance as patient completes activity. Assistance may be provided throughout the activity or intermittently. 3-Partial/Moderate Assistance-helper does LESS THAN HALF the effort. [place] lifts, holds or supports trunk or limbs, but provides less than half the effort. 2-Substantial/Maximal Assistance-helper does MORE THAN HALF the effort. [place] lifts or holds trunk or limbs and provides more than half the effort. 2-Wvihwwygz-egwlkc does ALL the effort. Patient does none of the effort to complete the activity. Or, the assistance of 2 or more helpers is required for the patient to complete the activity. If activity was not attempted, code reason: 7-Patient Refused. 9-Not Applicable-not attempted and the patient did not perform the activity before the current illness, exacerbation or injury. 10-Not Attempted due to Environmental Limitations-(lack of equipment, weather restraints, etc.). 88-Not Attempted due to Medical Conditions or Safety Concerns. Roll Left & Right (QC): 1 Lying to Sitting/Side of Bed(Q: 1 attempted to get patient sitting to the side of the bed with assist of 2, got about 80% there and patient's O2 drops quickly to 78%, lays back down and assist to scoot up. Weight Bearing Right Lower Extremity: Right Full Weight Bearing Left Lower Extremity: Left Full Weight Bearing Exercises Supine Ex: Ankle pumps, Quad Set, Glut sets, Heel Slides, Hip abd/add Supine Reps: 20 Treatments LE exercise Assessment Current Status: Poor Progress no progress with functional mobility PT Automation Control Technician Goals Automation Control Technician Goals PT Automation Control Technician Goals Time Frame: Aug 26, 2021 Roll Left & Right (QC): 3 (Chemo) Sit to Lying (QC): 3 (modA) Lying-Sitting on Side/Bed(QC): 3 (modA) Sit to Stand (QC): 3 (modA) Chair/Mrh-rk-Eqoic Xfer(QC): 3 (modA) PT Plan Problem List Problem List: Activity Tolerance, Functional Strength, Safety, Balance, Gait, Transfer, Bed Mobility, ROM Treatment/Plan Treatment Plan: Continue Plan of Care Treatment Plan: Bed Mobility, Education, Functional Activity Ron, Functional Strength, Group Therapy, Gait, Safety, Therapeutic Exercise, Transfers Treatment Duration: Aug 26, 2021 Frequency: 6 times per week Estimated Hrs Per Day: .25 hour per day Patient and/or Family Agrees t: Yes Safety Risks/Education Patient Education: Correct Positioning, Safety Issues Teaching Recipient: Patient Teaching Methods: Demonstration, Discussion Response to Teaching: Reinforcement Needed Time/GCodes Time In: 0850 Time Out: 0901 Total Billed Treatment Time: 11 Total Billed Treatment 1 visit EX CHARISMA BARLOW PT August 24, 2021 09:19
[2021-08-24] MEDS: ENOXAPARIN 60 MG/0.6 ML (LOVENOX) SYR SC SCH ×2 (11:55→23:54)
[2021-08-24] MEDS: inSUlin (REGULAR) HUMAN 1 UNIT/0.01 ML (CHARGE PER UNIT) SC PRN (17:36)
[2021-08-24] MEDS: lisINopril 5 MG (PRINIVIL) TABLET PO SCH (21:03)
[2021-08-25 00:17] VITALS: BP 149/66
[2021-08-25] MEDS: RT-ALBUTEROL/IPRATROPIUM 3 ML (DUONEB) VIAL INH SCH ×6 (03:20→22:34)
[2021-08-25 03:57] VITALS: BP 123/64
[2021-08-25] MEDS: ALPRAZolam 0.5 MG (XANAX) TAB PO SCH ×5 (04:00→21:36)
[2021-08-25 05:37] LABS: BASOPHILS # (AUTO) 0.1 10^3/uL (0.0-0.1); BASOPHILS % (AUTO) 0 % (0-10); EOSINOPHILS # (AUTO) 0.2 10^3/uL (0.0-0.3); EOSINOPHILS % (AUTO) 1 % (0-10); HEMATOCRIT 37 % (35-52); LYMPHOCYTES # (AUTO) 4.3 10^3/uL (1.0-4.0); LYMPHOCYTES % (AUTO) 21 % (12-44); MEAN CORPUSCULAR HEMOGLOBIN 26 pg (25-34); MEAN CORPUSCULAR HGB CONC 30 g/dL (32-36); MEAN CORPUSCULAR VOLUME 86 fL (80-99); MONOCYTES # (AUTO) 1.2 10^3/uL (0.0-1.0); MONOCYTES % (AUTO) 6 % (0-12); NEUTROPHILS # (AUTO) 14.7 10^3/uL (1.8-7.8); NEUTROPHILS % (AUTO) 71 % (42-75); PLATELET COUNT 509 10^3/uL (130-400); WHITE BLOOD COUNT 20.8 10^3/uL (4.3-11.0)
[2021-08-25 05:51] LABS: ALBUMIN 3.3 GM/DL (3.2-4.5); POTASSIUM 4.3 MMOL/L (3.6-5.0)
[2021-08-25 05:52] LABS: CALCIUM 9.3 MG/DL (8.5-10.1)
[2021-08-25 05:53] LABS: TOTAL PROTEIN 7.7 GM/DL (6.4-8.2)
[2021-08-25 05:55] LABS: BILIRUBIN,TOTAL 0.4 MG/DL (0.1-1.0)
[2021-08-25 05:57] LABS: CREATININE SERUM 1.3 MG/DL (0.60-1.30)
[2021-08-25 06:00] LABS: MAGNESIUM 2.3 MG/DL (1.6-2.4)
--- NOTE | 2021-08-25 06:13 | Progress Note - Hospitalist ---
Subjective HPI/CC On Admission Date Seen by Provider: August 25, 2021 Time Seen by Provider: 10:00 Pt doing about the same Maintained on BiPAP Chronic right hip and knee pain She does have pain medication ordered ABG will be ordered She appears to be BIPAP dependent Overall, very poor prognosis Subjective/Events-last exam Pt having no new medication changes Vapotherm and BiPAP now reasonable enough to go to [facility] Will attempt to approve with insurance Review of Systems General: Fatigue, Malaise Pulmonary: Dyspnea Objective Exam Vital Signs Vital Signs Date Time Temp Pulse Resp B/P (MAP) Pulse Ox O2 Delivery O2 Flow Rate FiO2 08/26/21 05:07 93 Vapotherm 35.00 55 08/26/21 04:00 36.4 60 20 112/60 (77) Capillary Refill : Less Than 3 Seconds General Appearance: No Apparent Distress, WD/WN, Chronically ill, Obese Respiratory: Lungs Clear, Normal Breath Sounds Cardiovascular: Regular Rate, Rhythm Neurologic/Psychiatric: Alert, Oriented x3 Results/Procedures Lab Patient resulted labs reviewed. Assessment/Plan Assessment and Plan Assess & Plan/Chief Complaint Assessment: Sepsis UTI Super morbid obesity BMI 73 Acute on chronic respiratory failure Obesity hypoventilation syndrome CO2 retention requiring BiPAP Hypertension Hyperlipidemia Diabetes Paroxysmal atrial fibrillation Anticoagulation contraindicated due to life-threatening bleed in the past Hypothyroidism Right hip pain Plan: Supportive care IV antibiotics ICU BiPAP 08/05/21: Monitor closely Transfer to 4th [address] Dr Talamantes right hip pain 08/06/2021: Social work for disposition Poor prognosis due to increased BMI 76 08/07/2021: BiPAP Supportive care Poor prognosis 08/09/2021: Supportive care BiPAP 08/10/2021: Supportive care BiPAP 08/11/2021: Supportive care ICU [facility]? 08/12/2021: [facility] 08/13/2021: Await [facility] Supportive care 08/14: Await [facility] 08/22/2021: Supportive care BiPAP and Vapotherm dependent 08/23/21: Unable to wean off Vapotherm and BIPAP 08/24/21: Move to floor 08/25/21: No more outside food [facility]? Critical Care Critically Ill Patient Diagnosis/Problems Diagnosis/Problems (1) Sepsis Status: Acute (2) Hypotension Status: Resolved Resolution Date/Time: 04/28/20 @ 13:41 (3) Hypothyroidism Status: Chronic (4) Renal failure (ARF), acute on chronic Status: Resolved (5) Hyperlipidemia Status: Chronic (6) Atrial fibrillation Status: Chronic (7) Coronary artery disease Status: Chronic Qualifiers: Coronary Disease-Associated Artery/Lesion type: [place] artery [place] vs. transplanted heart: [place] heart (8) Diabetes Status: Chronic Qualifiers: Diabetes mellitus type: type 2 Diabetes mellitus long-term insulin use: with long-term use Diabetes mellitus complication status: with other specified complication Qualified Codes: E11.69 - Type 2 diabetes mellitus with other specified complication; Z79.4 - bead inspector (current) use of insulin (9) COPD (chronic obstructive pulmonary disease) Status: Chronic Qualifiers: COPD type: COPD with acute exacerbation Qualified Codes: J44.1 - Chronic obstructive pulmonary disease with (acute) exacerbation EDEL BLISS DO August 25, 2021 06:13
[2021-08-25] MEDS: GABAPENTIN 600 MG (NEURONTIN) TAB PO SCH ×2 (06:17→16:14)
[2021-08-25] MEDS: LEVOTHYROXINE 100 MCG (LEVOTHROID) TAB PO SCH (06:17)
[2021-08-25] MEDS: MULTIVIT W/MINERALS TAB (THERAGRAN M) PO SCH (06:17)
[2021-08-25] MEDS: LEVOTHYROXINE 75 MCG (LEVOTHROID) TABLET PO SCH (06:17)
[2021-08-25] MEDS: FUROSEMIDE 40 MG (LASIX) TAB PO SCH ×2 (06:17→16:14)
[2021-08-25] MEDS: inSUlin ASPART (NovoLOG) 1 UNIT/0.01 ML (CHARGE PER UNIT) SC SCH ×7 (06:22→21:36)
[2021-08-25] MEDS: DOCUSATE SODIUM 100 MG (COLACE) CAP PO SCH ×2 (07:59→21:35)
[2021-08-25] MEDS: SENNOSIDES 8.6 MG (SENOKOT) TAB PO SCH ×2 (07:59→21:35)
[2021-08-25] MEDS: amLODIPine 5 MG (NORVASC) TAB PO SCH (07:59)
[2021-08-25] MEDS: FOLIC ACID 1 MG TAB PO SCH (07:59)
[2021-08-25] MEDS: PANTOPRAZOLE 20 MG TABLET (PROTONIX) PO SCH ×2 (07:59→21:36)
[2021-08-25] MEDS: ASPIRIN E.C. 81 MG (ECOTRIN) TAB PO SCH (07:59)
[2021-08-25] MEDS: MICONAZOLE 2% POWDER (DESENEX AF) 90 GM TOP SCH ×2 (08:00→21:37)
[2021-08-25 08:11] VITALS: BP 131/75
--- NOTE | 2021-08-25 08:33 | Cardiology Progress Note ---
Subjective Date Seen by Provider: August 25, 2021 Time Seen by Provider: 08:32 Subjective/Events-last exam Patient in bed, continues to c/o dyspnea. Review of Systems General: No Chills, No Night Sweats; Fatigue, Malaise; No Appetite, No Other HEENT: No Head Aches, No Visual Changes, No Eye Pain, No Ear Pain, No Dysphasia, No Sinus Congestion, No Post Nasal Drip, No Sore Throat, No Other Pulmonary: Dyspnea, Cough; No Pleuritic Chest Pain, No Other Cardiovascular: No: Chest Pain, Palpitations, Orthopnea, Paroxysmal Noc. Dy spnea, Edema, Lt Headedness, Other Objective-Cardiology Exam Last Set of Vital Signs Vital Signs 08/25/21 08/25/21 08:11 10:47 Temp 36.4 Pulse 60 Resp 22 B/P (MAP) 131/75 (93) Pulse Ox 91 O2 Delivery Vapotherm O2 Flow Rate 35.00 FiO2 50 I&O Intake and Output 08/25/21 00:00 Intake Total 4720 ml Output Total 5200 ml Balance -480 ml Intake Oral 2320 ml IV Total 2400 ml Output Urine Total 5200 ml # Bowel Movements 2 General: Alert, No Acute Distress HEENT: Atraumatic, PERRLA Neck: Supple, No JVD Lungs: Other (wheezing) Heart: Regular Rate, Normal S1, Normal S2 Abdomen: Normal Bowel Sounds, Soft Extremities: No Clubbing Skin: No Rashes Neuro: Normal Speech Psych/Mental Status: Mood NL Results Lab Laboratory Tests 08/25/21 04:54 A/P-Cardiology Admission Diagnosis Urosepsis CAD PAF HTN Assessment/Plan Status post acute respiratory failure, history of chronic respiratory insufficiency due to chronic CO2 retention and morbid obesity Using BiPAP at night and Vapotherm during the day. Continue to fail weaning off Vapotherm. Waiting on placement to [place] Urosepsis, improved. Patient was restarted on antibiotics. Managed by medical team. Coronary artery disease with history of stents x2 to the RCA,3.512 mm vision stent in 2009. 3.012 mm vision stent in 2010 with most recent cardiac catheterization in November 2015 revealing patent stents to the RCA with otherwise nonobstructive disease. 2D Echo done 08/05/21 showing EF 60-65%, PA 20-25mmHg. Technically difficult study. Paroxysmal atrial fibrillation, diagnosed April 2019, was hospitalized for A. fib with RVR with tachybradycardia episodes, converted to sinus rhythm, currently in sinus rhythm History of GI bleed on 04/27/2020 requiring blood transfusion. 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 Hyperlipidemia, monitor lipids Diabetes mellitus-managed by primary care physician, continue to monitor Severe obesity, BMI 71 was referred for possible weight loss surgery in the past, however patient has decided against surgery at this time. Bilateral lower extremity pain and swelling-discussed weight loss. Mild bilateral nonobstructive carotid artery stenosis, most recent carotid duplex done in November 2018, continue to monitor. Hypothyroidism, continue to monitor thyroid function test. Obstructive sleep apnea Supervisory-Addendum Brief Supervisory Addendum Participated in pt care: history, MDM, physical Personally performed: exam, history, MDM Care discussed with: JANIYA Results interpretation: Verified all documentation Notes: Patient was seen and evaluated with Dominic, examination performed, management plan was discussed, agree with the current scribed note, I made few changes to the note using Italic font Patient was seen at bedside laying down comfortably Having shortness of breath Complaining of cough Still on Vapotherm 50%, Was on steroids until yesterday. Managed by medical team and awaiting transfer DOMINIC JANG August 25, 2021 08:33 BELLE VERA MD August 25, 2021 11:27
--- NOTE | 2021-08-25 11:40 | Physical Therapy Daily Note ---
PT Daily Note-Current Subjective Patient in bed pre tx, agrees to PT, has no complaints of pain at rest. Appearance Patient in recliner post tx with nurse call, phone, tray, all needs met. Mental Status Patient Orientation: Person, Place, Situation Attachments: Oxygen (vapotherm), Mack Catheter Transfers SCALE: Activities may be completed with or without assistive devices. 7-Kewrevwowc-mjwoxgy completes the activity by him/herself with no assistance from a helper. 5-Set-up or Clean-up Assistance-helper sets up or cleans up; patient completes activity. [place] assists only prior to or following the activity. 4-Supervision or Touching Assistance-helper provides verbal cues and/or touching/steadying and/or contact guard assistance as patient completes activity. Assistance may be provided throughout the activity or intermittently. 3-Partial/Moderate Assistance-helper does LESS THAN HALF the effort. [place] lifts, holds or supports trunk or limbs, but provides less than half the effort. 2-Substantial/Maximal Assistance-helper does MORE THAN HALF the effort. [place] lifts or holds trunk or limbs and provides more than half the effort. 2-Qutaqxkhk-xcgwep does ALL the effort. Patient does none of the effort to complete the activity. Or, the assistance of 2 or more helpers is required for the patient to complete the activity. If activity was not attempted, code reason: 7-Patient Refused. 9-Not Applicable-not attempted and the patient did not perform the activity before the current illness, exacerbation or injury. 10-Not Attempted due to Environmental Limitations-(lack of equipment, weather restraints, etc.). 88-Not Attempted due to Medical Conditions or Safety Concerns. Roll Left & Right (QC): 1 Chair/Bez-ha-Ellfu Xfer(QC): 1 Patient has been moved to a room with a ceiling ibeth lift. Hoyered patient to recliner. Patient had to roll a couple of times to each side for pad replacement and sling placement (performed with assist of 2) Weight Bearing Right Lower Extremity: Right Full Weight Bearing Left Lower Extremity: Left Full Weight Bearing Treatments rolling, transfers Assessment Current Status: Poor Progress no change in mobility PT Flow Manager Goals Flow Manager Goals PT Flow Manager Goals Time Frame: Aug 26, 2021 Roll Left & Right (QC): 3 (Chemo) Sit to Lying (QC): 3 (modA) Lying-Sitting on Side/Bed(QC): 3 (modA) Sit to Stand (QC): 3 (modA) Chair/Zeg-dx-Ojbug Xfer(QC): 3 (modA) PT Plan Problem List Problem List: Activity Tolerance, Functional Strength, Safety, Balance, Gait, Transfer, Bed Mobility, ROM Treatment/Plan Treatment Plan: Continue Plan of Care Treatment Plan: Bed Mobility, Education, Functional Activity Ron, Functional Strength, Group Therapy, Gait, Safety, Therapeutic Exercise, Transfers Treatment Duration: Aug 26, 2021 Frequency: 6 times per week Estimated Hrs Per Day: .25 hour per day Patient and/or Family Agrees t: Yes Safety Risks/Education Patient Education: Transfer Techniques, Correct Positioning, Safety Issues Teaching Recipient: Patient Teaching Methods: Demonstration, Discussion Response to Teaching: Reinforcement Needed Time/GCodes Time In: 1120 Time Out: 1134 Total Billed Treatment Time: 14 Total Billed Treatment 1 visit FA 14' CHARISMA TINAJERO PT August 25, 2021 11:40
[2021-08-25 12:02] VITALS: BP 133/60
[2021-08-25] MEDS: ENOXAPARIN 60 MG/0.6 ML (LOVENOX) SYR SC SCH (12:08)
[2021-08-25 15:56] VITALS: BP 127/62
[2021-08-25 20:00] VITALS: BP 122/62
[2021-08-25] MEDS: lisINopril 5 MG (PRINIVIL) TABLET PO SCH (21:36)
[2021-08-26] VITALS: BP 128/72
[2021-08-26] MEDS: ALPRAZolam 0.5 MG (XANAX) TAB PO SCH ×6 (00:23→20:56)
[2021-08-26] MEDS: ENOXAPARIN 60 MG/0.6 ML (LOVENOX) SYR SC SCH ×3 (00:26→22:38)
[2021-08-26] MEDS: GABAPENTIN 600 MG (NEURONTIN) TAB PO SCH ×4 (00:38→22:37)
[2021-08-26] MEDS: RT-ALBUTEROL/IPRATROPIUM 3 ML (DUONEB) VIAL INH SCH ×6 (02:16→22:46)
[2021-08-26 04:00] VITALS: BP 112/60
[2021-08-26] MEDS: LEVOTHYROXINE 100 MCG (LEVOTHROID) TAB PO SCH (06:22)
[2021-08-26] MEDS: FUROSEMIDE 40 MG (LASIX) TAB PO SCH ×2 (06:22→15:29)
[2021-08-26] MEDS: LEVOTHYROXINE 75 MCG (LEVOTHROID) TABLET PO SCH (06:22)
[2021-08-26] MEDS: MULTIVIT W/MINERALS TAB (THERAGRAN M) PO SCH (06:22)
[2021-08-26] MEDS: inSUlin ASPART (NovoLOG) 1 UNIT/0.01 ML (CHARGE PER UNIT) SC SCH ×7 (06:28→20:56)
--- NOTE | 2021-08-26 06:34 | Progress Note - Hospitalist ---
Subjective HPI/CC On Admission Date Seen by Provider: Aug 26, 2021 Time Seen by Provider: 10:00 Pt doing about the same Maintained on BiPAP Chronic right hip and knee pain She does have pain medication ordered ABG will be ordered She appears to be BIPAP dependent Overall, very poor prognosis Subjective/Events-last exam Pt is having no new changes Decreasing Vapotherm Realistically insurance will not improve [place] Dr. Garcia recommended to decrease the Vapotherm intensity and see how it goes Pt is supportive of that plan Review of Systems General: Fatigue, Malaise Pulmonary: Dyspnea Objective Exam Vital Signs Vital Signs Date Time Temp Pulse Resp B/P (MAP) Pulse Ox O2 Delivery O2 Flow Rate FiO2 08/27/21 03:49 36.4 57 20 122/86 (98) 96 High Flow N/C 12.00 08/26/21 20:40 55 Capillary Refill : Less Than 3 Seconds General Appearance: No Apparent Distress, WD/WN, Chronically ill, Obese Respiratory: Lungs Clear, Normal Breath Sounds Cardiovascular: Regular Rate, Rhythm Neurologic/Psychiatric: Alert, Oriented x3, No Motor/Sensory Deficits, Normal Mood/Affect Results/Procedures Lab Laboratory Tests 08/26/21 07:59 Patient resulted labs reviewed. Assessment/Plan Assessment and Plan Assess & Plan/Chief Complaint Assessment: Sepsis UTI Super morbid obesity BMI 73 Acute on chronic respiratory failure Obesity hypoventilation syndrome CO2 retention requiring BiPAP Hypertension Hyperlipidemia Diabetes Paroxysmal atrial fibrillation Anticoagulation contraindicated due to life-threatening bleed in the past Hypothyroidism Right hip pain Plan: Supportive care IV antibiotics ICU BiPAP 08/05/21: Monitor closely Transfer to 4th floor Dr Talamantes right hip pain 08/06/2021: Social work for disposition Poor prognosis due to increased BMI 76 08/07/2021: BiPAP Supportive care Poor prognosis 08/09/2021: Supportive care BiPAP 08/10/2021: Supportive care BiPAP 08/11/2021: Supportive care ICU [facility]? 08/12/2021: [facility] 08/13/2021: Await [facility] Supportive care 08/14: Await [place] 08/22/2021: Supportive care BiPAP and Vapotherm dependent 08/23/21: Unable to wean off Vapotherm and BIPAP 08/24/21: Move to floor 08/25/21: No more outside food [place]? 08/26/21: Monitor closely Wean Vapotherm Critical Care Critically Ill Patient Diagnosis/Problems Diagnosis/Problems (1) Sepsis Status: Acute (2) Hypotension Status: Resolved Resolution Date/Time: 04/28/20 @ 13:41 (3) Hypothyroidism Status: Chronic (4) Renal failure (ARF), acute on chronic Status: Resolved (5) Hyperlipidemia Status: Chronic (6) Atrial fibrillation Status: Chronic (7) Coronary artery disease Status: Chronic Qualifiers: Coronary Disease-Associated Artery/Lesion type: [place] artery [place] vs. transplanted heart: [place] heart (8) Diabetes Status: Chronic Qualifiers: Diabetes mellitus type: type 2 Diabetes mellitus cnc service engineer insulin use: with cnc service engineer use Diabetes mellitus complication status: with other specified complication Qualified Codes: E11.69 - Type 2 diabetes mellitus with other specified complication; Z79.4 - customer program specialist (current) use of insulin (9) COPD (chronic obstructive pulmonary disease) Status: Chronic Qualifiers: COPD type: COPD with acute exacerbation Qualified Codes: J44.1 - Chronic obstructive pulmonary disease with (acute) exacerbation EDEL BLISS DO Aug 26, 2021 06:34
[2021-08-26 07:58] VITALS: BP 144/82
[2021-08-26 08:08] LABS: BASOPHILS # (AUTO) 0.1 10^3/uL (0.0-0.1); BASOPHILS % (AUTO) 1 % (0-10); EOSINOPHILS # (AUTO) 0.3 10^3/uL (0.0-0.3); EOSINOPHILS % (AUTO) 2 % (0-10); HEMATOCRIT 40 % (35-52); LYMPHOCYTES % (AUTO) 19 % (12-44); MEAN CORPUSCULAR HEMOGLOBIN 26 pg (25-34); MEAN CORPUSCULAR HGB CONC 30 g/dL (32-36); MEAN CORPUSCULAR VOLUME 88 fL (80-99); MEAN PLATELET VOLUME 9.7 fL (9.0-12.2); MONOCYTES # (AUTO) 0.8 10^3/uL (0.0-1.0); MONOCYTES % (AUTO) 5 % (0-12); NEUTROPHILS # (AUTO) 11.5 10^3/uL (1.8-7.8); NEUTROPHILS % (AUTO) 72 % (42-75); PLATELET COUNT 459 10^3/uL (130-400); WHITE BLOOD COUNT 16.1 10^3/uL (4.3-11.0)
[2021-08-26 08:14] LABS: ALBUMIN 3.5 GM/DL (3.2-4.5); POTASSIUM 4.4 MMOL/L (3.6-5.0)
[2021-08-26 08:16] LABS: CALCIUM 9.2 MG/DL (8.5-10.1)
[2021-08-26 08:17] LABS: TOTAL PROTEIN 7.9 GM/DL (6.4-8.2)
[2021-08-26 08:18] LABS: BILIRUBIN,TOTAL 0.5 MG/DL (0.1-1.0)
[2021-08-26 08:20] LABS: CREATININE SERUM 1.34 MG/DL (0.60-1.30)
[2021-08-26] MEDS: DOCUSATE SODIUM 100 MG (COLACE) CAP PO SCH ×2 (08:22→20:54)
[2021-08-26] MEDS: ASPIRIN E.C. 81 MG (ECOTRIN) TAB PO SCH (08:22)
[2021-08-26] MEDS: FOLIC ACID 1 MG TAB PO SCH (08:22)
[2021-08-26] MEDS: SENNOSIDES 8.6 MG (SENOKOT) TAB PO SCH ×2 (08:22→20:55)
[2021-08-26] MEDS: PANTOPRAZOLE 20 MG TABLET (PROTONIX) PO SCH ×2 (08:22→20:54)
[2021-08-26] MEDS: amLODIPine 5 MG (NORVASC) TAB PO SCH (08:22)
[2021-08-26] MEDS: MICONAZOLE 2% POWDER (DESENEX AF) 90 GM TOP SCH ×2 (08:23→20:56)
[2021-08-26 08:25] LABS: ANISOCYTOSIS SLIGHT; EOSINOPHILS % (MANUAL) 1 %; HYPOCHROMASIA SLIGHT; LYMPHOCYTES % (MANUAL) 19 %; MONOCYTES % (MANUAL) 7 %; MYELOCYTES % 2 %; NEUTROPHILS % (MANUAL) 71 %
--- NOTE | 2021-08-26 09:45 | Cardiology Progress Note ---
Subjective Date Seen by Provider: Aug 26, 2021 Time Seen by Provider: 08:45 Subjective/Events-last exam Patient sitting up in bed, still having some shortness of breath. Objective-Cardiology Exam Last Set of Vital Signs Vital Signs 08/26/21 08/26/21 08:00 11:07 Temp 36.6 Pulse 67 Resp 20 B/P (MAP) 119/69 (86) Pulse Ox 90 O2 Delivery Vapotherm O2 Flow Rate 55.00 40.00 FiO2 55 I&O Intake and Output 08/26/21 00:00 Intake Total 3850 ml Output Total 3000 ml Balance 850 ml Intake Oral 3850 ml Output Urine Total 3000 ml General: Alert, No Acute Distress HEENT: Atraumatic, PERRLA Neck: Supple, No JVD Lungs: Other (wheezing) Heart: Regular Rate, Normal S1, Normal S2 Abdomen: Normal Bowel Sounds, Soft Extremities: No Clubbing Skin: No Rashes Neuro: Normal Speech Psych/Mental Status: Mood NL Results Lab Laboratory Tests 08/26/21 07:59 A/P-Cardiology Admission Diagnosis Urosepsis CAD PAF HTN Assessment/Plan Status post acute respiratory failure, history of chronic respiratory insufficiency due to chronic CO2 retention and morbid obesity Using BiPAP at night and Vapotherm during the day. Will try to wean off Vapotherm today. Urosepsis, improved. Patient was restarted on antibiotics. Managed by medical team. Coronary artery disease with history of stents x2 to the RCA,3.512 mm vision stent in 2009. 3.012 mm vision stent in 2010 with most recent cardiac catheterization in November 2015 revealing patent stents to the RCA with otherwise nonobstructive disease. 2D Echo done 08/05/21 showing EF 60-65%, PA 20-25mmHg. Technically difficult study. Paroxysmal atrial fibrillation, diagnosed April 2019, was hospitalized for A. fib with RVR with tachybradycardia episodes, converted to sinus rhythm, currently in sinus rhythm History of GI bleed on 04/27/2020 requiring blood transfusion. 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 Hyperlipidemia, monitor lipids Diabetes mellitus-managed by primary care physician, continue to monitor Severe obesity, BMI 71 was referred for possible weight loss surgery in the past, however patient has decided against surgery at this time. Bilateral lower extremity pain and swelling-discussed weight loss. Mild bilateral nonobstructive carotid artery stenosis, most recent carotid duplex done in November 2018, continue to monitor. Hypothyroidism, continue to monitor thyroid function test. Obstructive sleep apnea Supervisory-Addendum Brief Supervisory Addendum Participated in pt care: history, MDM, physical Personally performed: exam, history, MDM Care discussed with: JANIYA Results interpretation: Verified all documentation Notes: Patient was seen and evaluated with Dominic, examination performed, management plan was discussed, agree with the current scribed note, I made few changes to the note using Italic font Patient was seen at bedside sitting comfortably No new complaint, still on Vapotherm Discussed with Dr. Levi regarding trying aggressive weaning of Vapotherm DOMINIC JANG Aug 26, 2021 09:45 BELLE VERA MD Aug 26, 2021 11:16
--- NOTE | 2021-08-26 10:13 | Physical Therapy Daily Note ---
PT Daily Note-Current Subjective Patient in bed pre tx, agrees to PT, nursing cleaning her up from a BM (used bedpan), patient has no complaints of pain at rest, patient already has ibeth sling under her but needs adjusted. Appearance Patient in recliner post tx with nurse call, phone, tray, all needs met. Mental Status Patient Orientation: Person, Place, Situation Attachments: Oxygen (vapotherm), Mack Catheter Transfers SCALE: Activities may be completed with or without assistive devices. 9-Fcaqbmoota-ydojbzm completes the activity by him/herself with no assistance from a helper. 5-Set-up or Clean-up Assistance-helper sets up or cleans up; patient completes activity. [place] assists only prior to or following the activity. 4-Supervision or Touching Assistance-helper provides verbal cues and/or touching/steadying and/or contact guard assistance as patient completes activity. Assistance may be provided throughout the activity or intermittently. 3-Partial/Moderate Assistance-helper does LESS THAN HALF the effort. [place] lifts, holds or supports trunk or limbs, but provides less than half the effort. 2-Substantial/Maximal Assistance-helper does MORE THAN HALF the effort. [place] lifts or holds trunk or limbs and provides more than half the effort. 9-Cnjgdbgyk-qigufz does ALL the effort. Patient does none of the effort to complete the activity. Or, the assistance of 2 or more helpers is required for the patient to complete the activity. If activity was not attempted, code reason: 7-Patient Refused. 9-Not Applicable-not attempted and the patient did not perform the activity before the current illness, exacerbation or injury. 10-Not Attempted due to Environmental Limitations-(lack of equipment, weather restraints, etc.). 88-Not Attempted due to Medical Conditions or Safety Concerns. Roll Left & Right (QC): 1 Chair/Ukf-dz-Vkkdh Xfer(QC): 1 Patient has to roll from side to side a couple of times to adjust her ibeth sling, requires assist of 2 to do this. Then, patient is hoyered to recliner, has waffle cushion under her. Weight Bearing Right Lower Extremity: Right Full Weight Bearing Left Lower Extremity: Left Full Weight Bearing Treatments rolling, transfer Assessment Current Status: Poor Progress no change in bed mobility PT Long-Term Goals Long-Term Goals PT Dispatcher Relay Goals Time Frame: Aug 26, 2021 Roll Left & Right (QC): 3 (Chemo) Sit to Lying (QC): 3 (modA) Lying-Sitting on Side/Bed(QC): 3 (modA) Sit to Stand (QC): 3 (modA) Chair/Ccd-jd-Nroen Xfer(QC): 3 (modA) PT Plan Problem List Problem List: Activity Tolerance, Functional Strength, Safety, Balance, Gait, Transfer, Bed Mobility, ROM Treatment/Plan Treatment Plan: Continue Plan of Care Treatment Plan: Bed Mobility, Education, Functional Activity Ron, Functional Strength, Group Therapy, Gait, Safety, Therapeutic Exercise, Transfers Treatment Duration: Aug 26, 2021 Frequency: 6 times per week Estimated Hrs Per Day: .25 hour per day Patient and/or Family Agrees t: Yes Safety Risks/Education Patient Education: Correct Positioning, Safety Issues Teaching Recipient: Patient Teaching Methods: Demonstration, Discussion Response to Teaching: Reinforcement Needed Time/GCodes Time In: 0945 Time Out: 1006 Total Billed Treatment Time: 21 Total Billed Treatment 1 visit FA 21' CHARISMA TINAJERO PT Aug 26, 2021 10:13
[2021-08-26 11:07] VITALS: BP 119/69
[2021-08-26 15:20] VITALS: BP 156/77
[2021-08-26 20:07] VITALS: BP 149/63
[2021-08-26] MEDS: lisINopril 5 MG (PRINIVIL) TABLET PO SCH (20:55)
[2021-08-27] VITALS (8 sets, daily range): BP systolic 91–138; BP diastolic 51–86
[2021-08-27] MEDS: ALPRAZolam 0.5 MG (XANAX) TAB PO SCH ×7 (03:52→23:05)
[2021-08-27] MEDS: LEVOTHYROXINE 75 MCG (LEVOTHROID) TABLET PO SCH (06:19)
[2021-08-27] MEDS: FUROSEMIDE 40 MG (LASIX) TAB PO SCH ×2 (06:19→16:46)
[2021-08-27] MEDS: MULTIVIT W/MINERALS TAB (THERAGRAN M) PO SCH (06:19)
[2021-08-27] MEDS: GABAPENTIN 600 MG (NEURONTIN) TAB PO SCH ×3 (06:19→23:05)
[2021-08-27] MEDS: LEVOTHYROXINE 100 MCG (LEVOTHROID) TAB PO SCH (06:19)
[2021-08-27] MEDS: inSUlin ASPART (NovoLOG) 1 UNIT/0.01 ML (CHARGE PER UNIT) SC SCH ×7 (06:20→20:48)
--- NOTE | 2021-08-27 06:32 | Progress Note - Hospitalist ---
Subjective HPI/CC On Admission Date Seen by Provider: Aug 27, 2021 Time Seen by Provider: 11:30 Pt doing about the same Maintained on BiPAP Chronic right hip and knee pain She does have pain medication ordered ABG will be ordered She appears to be BIPAP dependent Overall, very poor prognosis Subjective/Events-last exam Pt had a lengthy 25 day hospital course after she was admitted for acute on chronic respiratory failure with urosepsis. She ultimately required ICU several times. Due to morbid obesity at 550 lbs she required BiPAP and Vapotherm. Those were ultimately weaned down after many days. She completed all antibiotics. She was deemed stable for discharge home on hospice on BiPAP and oxygen. Review of Systems General: Fatigue, Malaise Objective Exam Vital Signs Vital Signs Date Time Temp Pulse Resp B/P (MAP) Pulse Ox O2 Delivery O2 Flow Rate FiO2 08/28/21 04:00 36.0 60 21 92/54 (67) 94 NIV Bilevel 08/28/21 03:05 50.00 08/27/21 20:30 55 Capillary Refill : Less Than 3 Seconds General Appearance: No Apparent Distress, WD/WN, Chronically ill, Obese Respiratory: Lungs Clear Cardiovascular: Regular Rate, Rhythm Neurologic/Psychiatric: Alert, Oriented x3 Results/Procedures Lab Patient resulted labs reviewed. Assessment/Plan Assessment and Plan Assess & Plan/Chief Complaint Assessment: Sepsis UTI Super morbid obesity BMI 73 Acute on chronic respiratory failure Obesity hypoventilation syndrome CO2 retention requiring BiPAP Hypertension Hyperlipidemia Diabetes Paroxysmal atrial fibrillation Anticoagulation contraindicated due to life-threatening bleed in the past Hypothyroidism Right hip pain Plan: Supportive care IV antibiotics ICU BiPAP 08/05/21: Monitor closely Transfer to 4th floor Dr Talamantes right hip pain 08/06/2021: Social work for disposition Poor prognosis due to increased BMI 76 08/07/2021: BiPAP Supportive care Poor prognosis 08/09/2021: Supportive care BiPAP 08/10/2021: Supportive care BiPAP 08/11/2021: Supportive care ICU [address]? 08/12/2021: [address] 08/13/2021: Await [address] Supportive care 08/14: Await [address] 08/22/2021: Supportive care BiPAP and Vapotherm dependent 08/23/21: Unable to wean off Vapotherm and BIPAP 08/24/21: Move to floor 08/25/21: No more outside food [address]? 08/26/21: Monitor closely Wean Vapotherm 08/27/2021: Discharge home on hospice Critical Care Critically Ill Patient Diagnosis/Problems Diagnosis/Problems (1) Sepsis Status: Acute (2) Hypotension Status: Resolved Resolution Date/Time: 04/28/20 @ 13:41 (3) Hypothyroidism Status: Chronic (4) Renal failure (ARF), acute on chronic Status: Resolved (5) Hyperlipidemia Status: Chronic (6) Atrial fibrillation Status: Chronic (7) Coronary artery disease Status: Chronic Qualifiers: Coronary Disease-Associated Artery/Lesion type: [place] artery [place] vs. transplanted heart: [place] heart (8) Diabetes Status: Chronic Qualifiers: Diabetes mellitus type: type 2 Diabetes mellitus mcfp insulin use: with middle or intermediate school principal use Diabetes mellitus complication status: with other specified complication Qualified Codes: E11.69 - Type 2 diabetes mellitus with other specified complication; Z79.4 - manager long term care (current) use of insulin (9) COPD (chronic obstructive pulmonary disease) Status: Chronic Qualifiers: COPD type: COPD with acute exacerbation Qualified Codes: J44.1 - Chronic obstructive pulmonary disease with (acute) exacerbation EDEL BLISS DO Aug 27, 2021 06:32
[2021-08-27] MEDS: RT-ALBUTEROL/IPRATROPIUM 3 ML (DUONEB) VIAL INH SCH ×4 (07:11→20:43)
[2021-08-27] MEDS: PANTOPRAZOLE 20 MG TABLET (PROTONIX) PO SCH ×2 (08:06→20:28)
[2021-08-27] MEDS: amLODIPine 5 MG (NORVASC) TAB PO SCH (08:06)
[2021-08-27] MEDS: ASPIRIN E.C. 81 MG (ECOTRIN) TAB PO SCH (08:06)
[2021-08-27] MEDS: FOLIC ACID 1 MG TAB PO SCH (08:06)
[2021-08-27] MEDS: DOCUSATE SODIUM 100 MG (COLACE) CAP PO SCH ×2 (08:08→20:28)
[2021-08-27] MEDS: MICONAZOLE 2% POWDER (DESENEX AF) 90 GM TOP SCH ×2 (08:08→20:29)
[2021-08-27] MEDS: SENNOSIDES 8.6 MG (SENOKOT) TAB PO SCH ×2 (08:08→20:28)
--- NOTE | 2021-08-27 08:17 | Cardiology Progress Note ---
Subjective Date Seen by Provider: Aug 27, 2021 Time Seen by Provider: 08:16 Subjective/Events-last exam Patient was seen at bedside, laying down comfortably Maintained on BiPAP Review of Systems General: No Chills, No Night Sweats; Fatigue; No Malaise, No Appetite, No Other HEENT: No Head Aches, No Visual Changes, No Eye Pain, No Ear Pain, No Dysphasia, No Sinus Congestion, No Post Nasal Drip, No Sore Throat, No Other Pulmonary: Dyspnea; No Cough, No Pleuritic Chest Pain, No Other Cardiovascular: No: Chest Pain, Palpitations, Orthopnea, Paroxysmal Noc. Dyspnea, Edema, Lt Headedness, Other Objective-Cardiology Exam Last Set of Vital Signs Vital Signs 08/26/21 08/27/21 08/27/21 08/27/21 20:40 07:12 07:38 08:05 Temp 36.8 Pulse 56 Resp 20 B/P (MAP) 101/54 (70) Pulse Ox 98 O2 Delivery NIV Bilevel O2 Flow Rate 50.00 FiO2 55 I&O Intake and Output 08/27/21 00:00 Intake Total 4380 ml Output Total 3800 ml Balance 580 ml Intake Oral 2780 ml IV Total 1600 ml Output Urine Total 3800 ml # Bowel Movements 3 General: Alert, Cooperative, No Acute Distress HEENT: Atraumatic, PERRLA Neck: Supple, No JVD Lungs: Other (wheezing) Heart: Regular Rate, Normal S1, Normal S2 Abdomen: Normal Bowel Sounds, Soft Extremities: No Clubbing Skin: No Rashes Neuro: Normal Speech Psych/Mental Status: Mood NL A/P-Cardiology Admission Diagnosis Urosepsis CAD PAF HTN Assessment/Plan Status post acute respiratory failure, history of chronic respiratory insufficiency due to chronic CO2 retention and morbid obesity Using BiPAP at night and Vapotherm during the day. Will continue to try to wean off Vapotherm today. Urosepsis, improved. Patient was restarted on antibiotics. Managed by medical team. Coronary artery disease with history of stents x2 to the RCA,3.512 mm vision stent in 2009. 3.012 mm vision stent in 2010 with most recent cardiac catheterization in November 2015 revealing patent stents to the RCA with otherwise nonobstructive disease. 2D Echo done 08/05/21 showing EF 60-65%, PA 20-25mmHg. Technically difficult study. Paroxysmal atrial fibrillation, diagnosed April 2019, was hospitalized for A. fib with RVR with tachybradycardia episodes, converted to sinus rhythm, cur rently in sinus rhythm History of GI bleed on 04/27/2020 requiring blood transfusion. 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 Hyperlipidemia, monitor lipids Diabetes mellitus-managed by primary care physician, continue to monitor Severe obesity, BMI 71 was referred for possible weight loss surgery in the past, however patient has decided against surgery at this time. Bilateral lower extremity pain and swelling-discussed weight loss. Mild bilateral nonobstructive carotid artery stenosis, most recent carotid dup [place] done in November 2018, continue to monitor. Hypothyroidism, continue to monitor thyroid function test. Obstructive sleep apnea BELLE VERA MD Aug 27, 2021 08:17
--- NOTE | 2021-08-27 09:26 | Physical Therapy Daily Note ---
PT Daily Note-Current Subjective Patient in bed pre tx, agrees to PT but doesn't want to get out of bed at this time, agrees to exercises in bed. Appearance Patient in bed post tx with nurse call, phone, tray, all needs met. Mental Status Patient Orientation: Person, Place, Situation Attachments: Oxygen, Mack Catheter Transfers SCALE: Activities may be completed with or without assistive devices. 6-Esqdmaiaxw-upgzqkb completes the activity by him/herself with no assistance from a helper. 5-Set-up or Clean-up Assistance-helper sets up or cleans up; patient completes activity. [place] assists only prior to or following the activity. 4-Supervision or Touching Assistance-helper provides verbal cues and/or touching/steadying and/or contact guard assistance as patient completes activity. Assistance may be provided throughout the activity or intermittently. 3-Partial/Moderate Assistance-helper does LESS THAN HALF the effort. [place] lifts, holds or supports trunk or limbs, but provides less than half the effort. 2-Substantial/Maximal Assistance-helper does MORE THAN HALF the effort. [place] lifts or holds trunk or limbs and provides more than half the effort. 4-Kefledqxc-ijrhjq does ALL the effort. Patient does none of the effort to complete the activity. Or, the assistance of 2 or more helpers is required for the patient to complete the activity. If activity was not attempted, code reason: 7-Patient Refused. 9-Not Applicable-not attempted and the patient did not perform the activity before the current illness, exacerbation or injury. 10-Not Attempted due to Environmental Limitations-(lack of equipment, weather restraints, etc.). 88-Not Attempted due to Medical Conditions or Safety Concerns. Weight Bearing Right Lower Extremity: Right Full Weight Bearing Left Lower Extremity: Left Full Weight Bearing Exercises Supine Ex: Ankle pumps, Quad Set, Glut sets, Heel Slides, Straight leg raise (AAROM), Hip abd/add (AAROM) Treatments LE strengthening Assessment Current Status: Poor Progress very weak, no change in functional mobility PT Mineral Technologist Goals Mineral Technologist Goals PT Mcc Goals Time Frame: Aug 26, 2021 Roll Left & Right (QC): 3 (Chemo) Sit to Lying (QC): 3 (modA) Lying-Sitting on Side/Bed(QC): 3 (modA) Sit to Stand (QC): 3 (modA) Chair/Zbv-wu-Gsxpj Xfer(QC): 3 (modA) PT Plan Problem List Problem List: Activity Tolerance, Functional Strength, Safety, Balance, Gait, Transfer, Bed Mobility, ROM Treatment/Plan Treatment Plan: Continue Plan of Care Treatment Plan: Bed Mobility, Education, Functional Activity Ron, Functional Strength, Group Therapy, Gait, Safety, Therapeutic Exercise, Transfers Treatment Duration: Aug 26, 2021 Frequency: 6 times per week Estimated Hrs Per Day: .25 hour per day Patient and/or Family Agrees t: Yes Safety Risks/Education Patient Education: Correct Positioning, Safety Issues Teaching Recipient: Patient Teaching Methods: Demonstration, Discussion Response to Teaching: Reinforcement Needed Time/GCodes Time In: 907 Time Out: 918 Total Billed Treatment Time: 11 Total Billed Treatment 1 visit EX CHARISMA TINAJERO PT Aug 27, 2021 09:26
[2021-08-27] MEDS: ENOXAPARIN 60 MG/0.6 ML (LOVENOX) SYR SC SCH ×2 (12:01→23:05)
[2021-08-27] MEDS ORDERED: FURO40TA4 PO (12:23)
[2021-08-27] MEDS ORDERED: ASPI-1238 PO (12:23)
[2021-08-27] MEDS ORDERED: LORA-404 PO (12:23)
--- NOTE | 2021-08-27 12:24 | Discharge Summary ---
Discharge Summary Hospital Course Problems/Dx: (1) Coronary artery disease without angina pectoris (2) Paroxysmal atrial fibrillation (3) Primary hypertension (4) Mixed hyperlipidemia (5) Acute on chronic respiratory failure with hypoxemia (6) Morbid obesity Hospital Course Date of Admission: August 03, 2021 at 22:20 Admission Diagnosis : Family Physician/Provider: Jd Styles MD Date of Discharge: 08/27/21 Discharge Diagnosis: [ ] Hospital Course: [ ] Labs and Pending Lab Test: Laboratory Tests 08/26/21 16:08: Glucometer 312H 08/27/21 06:10: Glucometer 295H 08/27/21 10:08: Glucometer 240H Microbiology 08/18/21 Blood Culture - Final, Complete No growth 08/03/21 MRSA Screen - Final, Complete MRSA not isolated Home Meds Active Furosemide 40 Mg Tablet 40 Mg PO DAILY@, Aspirin EC (Aspirin) 81 Mg Tablet.dr 81 Mg PO DAILY Reported Folic Acid 1 Mg Tablet 2 Mg PO DAILY TAKES 2 (1MG) TABS Januvia (Sitagliptin Phosphate) 100 Mg Tablet 100 Mg PO DAILY Atorvastatin Calcium 40 Mg Tablet 40 Mg PO HS Victoza 3-Juanito (Liraglutide) 0.6 Mg/0.1 Ml (18 Mg/3 Ml) Pen.injctr 1.2 Mg INJ DAILY Omeprazole 20 Mg Capsule.dr 20 Mg PO BID Humalog Kwikpen (Insulin Lispro) 100 Unit/Ml Insuln.pen 18 Units SC AC Levemir Flextouch (Insulin Detemir) 100 Unit/Ml (3 Ml) Insuln.pen 26 Units SC HS Gabapentin 600 Mg Tablet 600 Mg PO 0700,1600,2300 Glucosamine HCl 500 Mg Tablet 1,000 Mg PO DAILY TAKES 2 (500MG) TABS Acetaminophen ER (Acetaminophen) 650 Mg Tablet.er 650-1,300 Mg PO Q8H PRN Amlodipine Besylate 5 Mg Tablet 5 Mg PO DAILY Levothyroxine Sodium 175 Mcg Tablet 175 Mcg PO DAILY Lisinopril 5 Mg Tablet 5 Mg PO HS Multivitamins (Multivitamin) 1 Each Tablet 1 Tab PO DAILY Discharge Physical Examination Vital Signs Vital Signs Date Time Temp Pulse Resp B/P (MAP) Pulse Ox O2 Delivery O2 Flow Rate FiO2 08/27/21 11:34 36.8 65 20 100/51 (67) 91 High Flow N/C 10.00 08/26/21 20:40 55 Allergies: Coded Allergies: canagliflozin (Verified Allergy, Unknown, 04/23/19) Discharge Summary Date of Admission August 03, 2021 at 22:20 Date of Discharge Discharge Date: August 13, 2021 Admission Diagnosis Assessment: Sepsis UTI Super morbid obesity BMI 73 Acute on chronic respiratory failure Obesity hypoventilation syndrome CO2 retention requiring BiPAP Hypertension Hyperlipidemia Diabetes Paroxysmal atrial fibrillation Anticoagulation contraindicated due to life-threatening bleed in the past Hypothyroidism Plan: Supportive care IV antibiotics ICU BiPAP Discharge Diagnosis Assessment: Sepsis UTI Super morbid obesity BMI 73 Acute on chronic respiratory failure Obesity hypoventilation syndrome CO2 retention requiring BiPAP Hypertension Hyperlipidemia Diabetes Paroxysmal atrial fibrillation Anticoagulation contraindicated due to life-threatening bleed in the past Hypothyroidism Right hip pain Plan: Supportive care IV antibiotics ICU BiPAP 08/05/21: Monitor closely Transfer to 4th [address] Dr Talamantes right hip pain 08/06/2021: Social work for disposition Poor prognosis due to increased BMI 76 08/07/2021: BiPAP Supportive care Poor prognosis 08/09/2021: Supportive care BiPAP 08/10/2021: Supportive care BiPAP 08/11/2021: Supportive care ICU [place]? 08/12/2021: [place] 08/13/2021: Await [place] Supportive care 08/14: Await [place] 08/22/2021: Supportive care BiPAP and Vapotherm dependent 08/23/21: Unable to wean off Vapotherm and BIPAP 08/24/21: Move to floor 08/25/21: No more outside food [place]? 08/26/21: Monitor closely Wean Vapotherm (1) Coronary artery disease without angina pectoris Assessment & Plan: She has not been having any angina. She is on amlodipine and statin medication. Her hemoglobin has been stable although she is anemic. I started her on low strength aspirin. At this point time, there do not appear to be any acute, active cardiac issues. Cardiology will follow along on the sidelines. Please call if you have any immediate questions or concerns. (2) Paroxysmal atrial fibrillation Assessment & Plan: She has been remaining in sinus rhythm. She has not had any atrial fibrillation during this admission. She is not currently on oral anticoagulation presumably due to persistent anemia and history of gastrointestinal hemorrhage in the past. (3) Primary hypertension Assessment & Plan: Blood pressure is adequately controlled with present medication. (4) Mixed hyperlipidemia Assessment & Plan: Continue statin. (5) Acute on chronic respiratory failure with hypoxemia Assessment & Plan: I suspect this is primarily due to her chronic obstructive pulmonary disease and morbid obesity with chronic hypoventilation. (6) Morbid obesity Assessment & Plan: Bariatric surgery had been discussed with the patient in the past but she declined. I recommend restricting her daily caloric intake to 2000 sharan. I have changed her diet. Unfortunately, her has been bringing her outside food. EDEL BLISS DO Aug 27, 2021 12:24
[2021-08-27] MEDS: guaiFENesin/DM (ROBITUSSIN DM) 10 ML UDC PO PRN (15:27)
[2021-08-27] MEDS: lisINopril 5 MG (PRINIVIL) TABLET PO SCH (20:28)
[2021-08-28 00:02] VITALS: BP 145/67
[2021-08-28] MEDS: RT-ALBUTEROL/IPRATROPIUM 3 ML (DUONEB) VIAL INH SCH ×3 (00:34→07:37)
[2021-08-28 04:00] VITALS: BP 92/54
[2021-08-28] MEDS: ALPRAZolam 0.5 MG (XANAX) TAB PO SCH ×2 (04:05→08:17)
--- NOTE | 2021-08-28 06:14 | Discharge Summary ---
Discharge Summary Hospital Course Was the Problem List Reviewed?: Yes Problems/Dx: (1) Coronary artery disease without angina pectoris (2) Paroxysmal atrial fibrillation (3) Primary hypertension (4) Mixed hyperlipidemia (5) Acute on chronic respiratory failure with hypoxemia (6) Morbid obesity Hospital Course Date of Admission: August 03, 2021 at 22:20 Admission Diagnosis : Family Physician/Provider: Jd Styles MD Date of Discharge: 08/28/21 Discharge Diagnosis: acute on chronic resp failure, urosepsis, [facility] Hospital Course: Pt had a lengthy 25 day hospital course after she was admitted for acute on chronic respiratory failure with urosepsis. She ultimately required ICU several times. Due to morbid obesity at 550 lbs she required BiPAP and Vapotherm. Those were ultimately weaned down after many days. She completed all antibiotics. She was deemed stable for discharge home on hospice on BiPAP and oxygen. Labs and Pending Lab Test: Laboratory Tests 08/27/21 10:08: Glucometer 240H 08/27/21 16:04: Glucometer 335H 08/27/21 20:39: Glucometer 250H 08/28/21 05:34: Glucometer 314H Microbiology 08/18/21 Blood Culture - Final, Complete No growth 08/03/21 MRSA Screen - Final, Complete MRSA not isolated Home Meds Active Ativan (Lorazepam) 0.5 Mg Tablet 0.5 Mg PO TID PRN Furosemide 40 Mg Tablet 40 Mg PO DAILY@07,17 Aspirin EC (Aspirin) 81 Mg Tablet.dr 81 Mg PO DAILY Reported Folic Acid 1 Mg Tablet 2 Mg PO DAILY TAKES 2 (1MG) TABS Januvia (Sitagliptin Phosphate) 100 Mg Tablet 100 Mg PO DAILY Atorvastatin Calcium 40 Mg Tablet 40 Mg PO HS Victoza 3-Juanito (Liraglutide) 0.6 Mg/0.1 Ml (18 Mg/3 Ml) Pen.injctr 1.2 Mg INJ DAILY Omeprazole 20 Mg Capsule.dr 20 Mg PO BID Humalog Kwikpen (Insulin Lispro) 100 Unit/Ml Insuln.pen 18 Units SC AC Levemir Flextouch (Insulin Detemir) 100 Unit/Ml (3 Ml) Insuln.pen 26 Units SC HS Gabapentin 600 Mg Tablet 600 Mg PO 0700,1600,2300 Glucosamine HCl 500 Mg Tablet 1,000 Mg PO DAILY TAKES 2 (500MG) TABS Acetaminophen ER (Acetaminophen) 650 Mg Tablet.er 650-1,300 Mg PO Q8H PRN Amlodipine Besylate 5 Mg Tablet 5 Mg PO DAILY Levothyroxine Sodium 175 Mcg Tablet 175 Mcg PO DAILY Lisinopril 5 Mg Tablet 5 Mg PO HS Multivitamins (Multivitamin) 1 Each Tablet 1 Tab PO DAILY Assessment/Pt Instructions Hospice Discharge Planning: <30 minutes discharge planning Discharge Instructions Discharge Diet: No Restrictions Discharge Physical Examination Vital Signs Vital Signs Date Time Temp Pulse Resp B/P (MAP) Pulse Ox O2 Delivery O2 Flow Rate FiO2 08/28/21 04:00 36.0 60 21 92/54 (67) 94 NIV Bilevel 08/28/21 03:05 50.00 08/27/21 20:30 55 General Appearance: No Apparent Distress, WD/WN, Chronically ill, Obese Allergies: Coded Allergies: canagliflozin (Verified Allergy, Unknown, 04/23/19) Discharge Summary Date of Admission August 03, 2021 at 22:20 Date of Discharge Discharge Date: August 13, 2021 Admission Diagnosis Assessment: Sepsis UTI Super morbid obesity BMI 73 Acute on chronic respiratory failure Obesity hypoventilation syndrome CO2 retention requiring BiPAP Hypertension Hyperlipidemia Diabetes Paroxysmal atrial fibrillation Anticoagulation contraindicated due to life-threatening bleed in the past Hypothyroidism Plan: Supportive care IV antibiotics ICU BiPAP Discharge Diagnosis Assessment: Sepsis UTI Super morbid obesity BMI 73 Acute on chronic respiratory failure Obesity hypoventilation syndrome CO2 retention requiring BiPAP Hypertension Hyperlipidemia Diabetes Paroxysmal atrial fibrillation Anticoagulation contraindicated due to life-threatening bleed in the past Hypothyroidism Right hip pain Plan: Supportive care IV antibiotics ICU BiPAP 08/05/21: Monitor closely Transfer to 4th [address] Dr Talamantes right hip pain 08/06/2021: Social work for disposition Poor prognosis due to increased BMI 76 08/07/2021: BiPAP Supportive care Poor prognosis 08/09/2021: Supportive care BiPAP 08/10/2021: Supportive care BiPAP 08/11/2021: Supportive care ICU [place]? 08/12/2021: [place] 08/13/2021: Await [place] Supportive care 08/14: Await [place] 08/22/2021: Supportive care BiPAP and Vapotherm dependent 08/23/21: Unable to wean off Vapotherm and BIPAP 08/24/21: Move to floor 08/25/21: No more outside food [place]? 08/26/21: Monitor closely Wean Vapotherm 08/27/2021: Discharge home on hospice (1) Coronary artery disease without angina pectoris Assessment & Plan: She has not been having any angina. She is on amlodipine and statin medication. Her hemoglobin has been stable although she is anemic. I started her on low strength aspirin. At this point time, there do not appear to be any acute, active cardiac issues. Cardiology will follow along on the sidelines. Please call if you have any immediate questions or concerns. (2) Paroxysmal atrial fibrillation Assessment & Plan: She has been remaining in sinus rhythm. She has not had any atrial fibrillation during this admission. She is not currently on oral anticoagulation presumably due to persistent anemia and history of gastrointestinal hemorrhage in the past. (3) Primary hypertension Assessment & Plan: Blood pressure is adequately controlled with present medication. (4) Mixed hyperlipidemia Assessment & Plan: Continue statin. (5) Acute on chronic respiratory failure with hypoxemia Assessment & Plan: I suspect this is primarily due to her chronic obstructive pulmonary disease and morbid obesity with chronic hypoventilation. (6) Morbid obesity Assessment & Plan: Bariatric surgery had been discussed with the patient in the past but she declined. I recommend restricting her daily caloric intake to 2000 sharan. I have changed her diet. Unfortunately, her has been bringing her outside food. EDEL BLISS DO Aug 28, 2021 06:14
[2021-08-28] MEDS: GABAPENTIN 600 MG (NEURONTIN) TAB PO SCH (06:27)
[2021-08-28] MEDS: MULTIVIT W/MINERALS TAB (THERAGRAN M) PO SCH (06:27)
[2021-08-28] MEDS: LEVOTHYROXINE 75 MCG (LEVOTHROID) TABLET PO SCH (06:27)
[2021-08-28] MEDS: FUROSEMIDE 40 MG (LASIX) TAB PO SCH (06:28)
[2021-08-28] MEDS: inSUlin ASPART (NovoLOG) 1 UNIT/0.01 ML (CHARGE PER UNIT) SC SCH ×2 (06:28)
[2021-08-28] MEDS: LEVOTHYROXINE 100 MCG (LEVOTHROID) TAB PO SCH (06:28)
[2021-08-28 07:55] VITALS: BP 122/58
[2021-08-28] MEDS: ASPIRIN E.C. 81 MG (ECOTRIN) TAB PO SCH (08:16)
[2021-08-28] MEDS: FOLIC ACID 1 MG TAB PO SCH (08:17)
[2021-08-28] MEDS: PANTOPRAZOLE 20 MG TABLET (PROTONIX) PO SCH (08:17)
[2021-08-28] MEDS: DOCUSATE SODIUM 100 MG (COLACE) CAP PO SCH (08:17)
[2021-08-28] MEDS: amLODIPine 5 MG (NORVASC) TAB PO SCH (08:17)
[2021-08-28] MEDS: SENNOSIDES 8.6 MG (SENOKOT) TAB PO SCH (08:17)
[2021-08-28] MEDS: MICONAZOLE 2% POWDER (DESENEX AF) 90 GM TOP SCH (08:19)
--- NOTE | 2021-08-28 08:41 | Cardiology Progress Note ---
Subjective Date Seen by Provider: Aug 28, 2021 Time Seen by Provider: 08:39 Subjective/Events-last exam Patient was seen and evaluated. Laying down in bed, currently on high flow nasal cannula Review of Systems General: No Chills, No Night Sweats; Fatigue; No Malaise, No Appetite, No Other HEENT: No Head Aches, No Visual Changes, No Eye Pain, No Ear Pain, No Dysphasia, No Sinus Congestion, No Post Nasal Drip, No Sore Throat, No Other Pulmonary: No Dyspnea, No Cough, No Pleuritic Chest Pain, No Other Cardiovascular: No: Chest Pain, Palpitations, Orthopnea, Paroxysmal Noc. Dyspnea, Edema, Lt Headedness, Other Objective-Cardiology Exam Last Set of Vital Signs Vital Signs 08/27/21 08/28/21 08/28/21 20:30 07:55 08:33 Temp 37.0 Pulse 60 Resp 20 B/P (MAP) 122/58 (79) Pulse Ox 91 O2 Delivery High Flow N/C O2 Flow Rate 10.00 FiO2 55 I&O Intake and Output 08/28/21 00:00 Intake Total 2680 ml Output Total 2200 ml Balance 480 ml Intake Oral 1880 ml IV Total 800 ml Output Urine Total 2200 ml # Voids 5 # Bowel Movements 1 General: Alert, Cooperative, No Acute Distress HEENT: Atraumatic, PERRLA Neck: Supple, No JVD Lungs: Other (wheezing) Heart: Regular Rate, Normal S1, Normal S2 Abdomen: Normal Bowel Sounds, Soft Extremities: No Clubbing Skin: No Rashes Neuro: Normal Speech Psych/Mental Status: Mood NL A/P-Cardiology Admission Diagnosis Urosepsis CAD PAF HTN Assessment/Plan Status post acute respiratory failure, history of chronic respiratory insufficiency due to chronic CO2 retention and morbid obesity Using BiPAP at night, currently on 10 L nasal cannula Managed by medical team Urosepsis, improved. Patient was restarted on antibiotics. Managed by medical team. Coronary artery disease with history of stents x2 to the RCA,3.512 mm vision stent in 2009. 3.012 mm vision stent in 2010 with most recent cardiac catheterization in November 2015 revealing patent stents to the RCA with otherwise nonobstructive disease. 2D Echo done 08/05/21 showing EF 60-65%, PA 20-25mmHg. Technically difficult study. Paroxysmal atrial fibrillation, diagnosed April 2019, was hospitalized for A. fib with RVR with tachybradycardia episodes, converted to sinus rhythm, currently in sinus rhythm History of GI bleed on 04/27/2020 requiring blood transfusion. 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 Hyperlipidemia, monitor lipids Diabetes mellitus-managed by primary care physician, continue to monitor Severe obesity, BMI 71 was referred for possible weight loss surgery in the past, however patient has decided against surgery at this time. Bilateral lower extremity pain and swelling-discussed weight loss. Mild bilateral nonobstructive carotid artery stenosis, most recent carotid duplex done in November 2018, continue to monitor. Hypothyroidism, continue to monitor thyroid function test. Obstructive sleep apnea BELLE VERA MD Aug 28, 2021 08:41
--- NOTE | 2021-08-28 10:49 | Physical Therapy Progress Note ---
Therapy Progress Note [employer] arrives to see pt and pt reports d/c shortly. Transportation arrives at [employer] is leaving. 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
== END 2021-08-28 10:57 | disposition hospice, home (50) | DRG 871 ==
LOC: ICU 22:20 → 4TH 08-05 13:45 → ICU 08-10 18:31 → 4TH 08-24 16:02
PROVIDERS: ADMIT Internal Medicine; ATTEND Internal Medicine
PROC: 5A09457 Assistance with Respiratory Ventilation, 24-96 Consecutive Hours, Continuous Positive Airway Pressure (ICD-10-PCS; principal; 2021-08-03)
PROC: 5A0935A Assistance with Respiratory Ventilation, Less than 24 Consecutive Hours, High Flow/Velocity Cannula (ICD-10-PCS; 2021-08-04)
DX: A41.9 Sepsis, unspecified organism (principal); J96.21 Acute and chronic respiratory failure with hypoxia; J96.22 Acute and chronic respiratory failure with hypercapnia; N39.0 Urinary tract infection, site not specified; N17.9 Acute kidney failure, unspecified; E66.2 Morbid (severe) obesity with alveolar hypoventilation; E87.2 Acidosis; R57.9 Shock, unspecified; I48.20 Chronic atrial fibrillation, unspecified; Z68.45 Body mass index [BMI] 70 or greater, adult; I13.0 Hypertensive heart and chronic kidney disease with heart failure and stage 1 through stage 4 chronic kidney disease, or unspecified chronic kidney disease; I25.10 Atherosclerotic heart disease of native coronary artery without angina pectoris; Z95.5 Presence of coronary angioplasty implant and graft; E03.9 Hypothyroidism, unspecified; J44.9 Chronic obstructive pulmonary disease, unspecified; K21.9 Gastro-esophageal reflux disease without esophagitis; Z87.891 Personal history of nicotine dependence; E78.00 Pure hypercholesterolemia, unspecified; E11.40 Type 2 diabetes mellitus with diabetic neuropathy, unspecified; M19.90 Unspecified osteoarthritis, unspecified site; Z79.4 Long term (current) use of insulin; I48.0 Paroxysmal atrial fibrillation; E11.22 Type 2 diabetes mellitus with diabetic chronic kidney disease; N18.9 Chronic kidney disease, unspecified; I50.9 Heart failure, unspecified; D64.9 Anemia, unspecified; F41.9 Anxiety disorder, unspecified; M25.551 Pain in right hip; M54.9 Dorsalgia, unspecified; Z79.01 Long term (current) use of anticoagulants; K59.00 Constipation, unspecified; D75.839 Thrombocytosis, unspecified; D72.829 Elevated white blood cell count, unspecified; D50.0 Iron deficiency anemia secondary to blood loss (chronic); I65.23 Occlusion and stenosis of bilateral carotid arteries; E78.2 Mixed hyperlipidemia
CPT/HCPCS: 36415; 36600; 71045; 73502; 80053; 82533; 82805; 82947; 83605; 83735; 83880; 84100; 84145; 85007; 85025; 85027; 85379; 87040; 87081; 93306; 94640; 94660; 94760